=== PATIENT | male | born 1940 | race Caucasian/White ===

== ENCOUNTER 2017-02-03 16:52 | Observation (INO) | payer MEDICARE ==
[2017-02-03] MEDS ORDERED: ROCEPHIN 1 Gm-D5w 50 ml Bag** 50 ML IV ONE (17:59)
[2017-02-03] MEDS ORDERED: Zithromax 500 MG/ 250 ML NaCl Premix 250 ML IV ONE (17:59)
[2017-02-03] MEDS ORDERED: DUONEB 0.5-3 MG/3 ml Neb IH ONE (18:05)
[2017-02-03] MEDS: DUONEB 0.5-3 MG/3 ml Neb IH SCH (18:06)
[2017-02-03] MEDS ORDERED: BUMEX 1 MG ONE (18:11)
[2017-02-03] MEDS: ROCEPHIN 1 Gm-D5w 50 ml Bag** 50 ML IV SCH (18:13)
[2017-02-03] MEDS: BUMEX 1 MG PO SCH (18:14)
[2017-02-03] MEDS: Klor Con 10 MEQ PO SCH (18:21)
[2017-02-03] MEDS: MAG-OX 400 PO SCH (18:21)
[2017-02-03 18:24] LABS: BASOPHIL % 0.8 % (0.0-0.4); Eosinophil % 1.8 % (0.00-5.0); Granulocytes % 71.9 % (36.0-66.0); Lymphocytes % 13.9 % (24.0-44.0); Mean Cell Volume 88.3 fl (78-100); Mean Corpuscular Hemoglobin 28.5 pg (26-32); Mean Platelet Volume 8.9 fl (6-9.5); Monocytes % 11.6 % (0.0-12.0); Platelet Count 224 K/mm3 (150-450); Red Blood Count 4.45 M/mm3 (4.1-5.6); White Blood Count 10.3 K/mm3 (4.0-10.5)
[2017-02-03] MEDS: Zithromax 500 MG/ 250 ML NaCl Premix 250 ML IV SCH (18:24)
[2017-02-03 18:59] LABS: ALBUMIN 2.8 g/dL (3.4-5.0); ANION GAP 12.2 MEQ/L (5-15); BILIRUBIN,TOTAL 0.3 mg/dL (0.2-1.0); Carbon Dioxide 27.7 mEq/L (21-32); PHOSPHOROUS 2.6 mg/dL (2.6-4.7); Potassium 4.2 mEq/L (3.5-5.1); TROPONIN 0.023 ng/ml (0.000-0.056); Total Protein 7.1 gm/dL (6.4-8.2)
[2017-02-03] MEDS: Lopressor 25MG Tab PO SCH (21:22)
[2017-02-03] MEDS: Pepcid 20 MG PO SCH (21:22)
[2017-02-03] MEDS: Zocor 10MG PO SCH (21:26)
[2017-02-03] MEDS: Apresoline 25 MG TABLET PO SCH (21:26)
[2017-02-04] MEDS: DUONEB 0.5-3 MG/3 ml Neb IH SCH ×4 (00:48→19:06)
[2017-02-04] MEDS ORDERED: MEDICATION INTERVENTION MC SCH (07:15)
[2017-02-04] MEDS: BUMEX 1 MG PO SCH ×2 (09:19→17:00)
[2017-02-04] MEDS: THERAGRAN MULTIVITAMIN PO SCH (09:20)
[2017-02-04] MEDS: MAG-OX 400 PO SCH ×2 (09:20→17:05)
[2017-02-04] MEDS: ECOTRIN 81 MG PO SCH (09:20)
[2017-02-04] MEDS: Apresoline 25 MG TABLET PO SCH ×3 (09:20→21:15)
[2017-02-04] MEDS: Pepcid 20 MG PO SCH ×2 (09:20→21:15)
[2017-02-04] MEDS: FOLATE 1 MG PO SCH (09:21)
[2017-02-04] MEDS: Klor Con 10 MEQ PO SCH ×2 (09:21→17:05)
[2017-02-04] MEDS: Lopressor 25MG Tab PO SCH ×2 (09:21→21:15)
[2017-02-04] MEDS: Protonix 40MG Tablet PO SCH (09:21)
[2017-02-04] MEDS: ROCEPHIN 1 Gm-D5w 50 ml Bag** 50 ML IV SCH (09:22)
[2017-02-04] MEDS ORDERED: OLODATEROL HCL IH SCH (10:00)
[2017-02-04] MEDS: Zithromax 500 MG/ 250 ML NaCl Premix 250 ML IV SCH (10:00)
[2017-02-04] MEDS ORDERED: FE FUMARATE PO SCH (10:00)
[2017-02-04] MEDS ORDERED: NON-FORMULARY ITEM (Aspirin [Aspirin] 81 MG) PO SCH (10:00)
[2017-02-04] MEDS ORDERED: TIOTROPIUM BR IH SCH (10:00)
[2017-02-04] MEDS ORDERED: PRENATAL VIT PO SCH (10:00)
[2017-02-04] MEDS ORDERED: [UNRECOGNIZED DRUG - OTHER] PO SCH (10:00)
[2017-02-04] MEDS ORDERED: [UNRECOGNIZED DRUG - OTHER] IH SCH (10:00)
--- NOTE | 2017-02-04 11:39 | XRAY ---
Exam: Two-view chest from 02/03/2017. Comparison: Two-view chest from 10/29/2016. Indication: Pneumonia. Findings: Frontal and lateral chest films are submitted for evaluation. The lateral film is rotated. The transverse heart size appears within normal limits. Scattered bilateral perihilar and bibasilar calcified granulomas are seen. I also see extensive pleural calcification along the lateral aspect of the left lower lung field representing no change. These findings appear similar to 10/29/2016. The level of inspiration is not quite as deep as that seen on 2016, although there is a suggestion of mild hyperinflation on the lateral radiograph representing no change.. No definite new air space infiltrates, vascular congestion, pneumothorax, or pleural fluid is seen. Mild mid dorsal kyphosis and diffuse thoracic spondylosis are seen. There is minimal biapical pleural thickening representing no change. Impression: 1. Probable COPD with extensive calcified pleural plaque at the lateral aspect of the lower half of the left lung representing no significant change from 10/29/2016. 2. Scattered bilateral perihilar and lower lung field calcified granulomas are seen consistent with old healed granulomatous disease. This also is stable. 3. No definite new superimposed air space infiltrates/consolidations or other acute cardiopulmonary disease is seen.
--- NOTE | 2017-02-04 11:49 | PCM.NOTE ---
Date and Time: 02/04/17 1147 Subjective Assessment: doing better - Review of Systems Constitutional: No Fever, No Chills Eyes: No Symptoms Ears, Nose, & Throat: No Symptoms Respiratory: No Cough, No Short Of Breath Cardiac: No Chest Pain, No Edema, No Syncope Abdominal/Gastrointestinal: No Abdominal Pain, No Nausea, No Vomiting, No Diarrhea Genitourinary Symptoms: No Dysuria Musculoskeletal: No Back Pain, No Neck Pain Skin: No Rash Neurological: No Dizziness, No Focal Weakness, No Sensory Changes Psychological: No Symptoms Endocrine: No Symptoms Hematologic/Lymphatic: No Symptoms Immunological/Allergic: No Symptoms Objective Exam General Appearance: no apparent distress, alert Neurologic Exam: alert, oriented x 3, cooperative, normal mood/affect, nml cerebellar function, sensation nml, No motor deficits Skin Exam: normal color, warm, dry Eye Exam: PERRL, EOMI, eyes nml inspection Ears, Nose, Throat Exam: normal ENT inspection, pharynx normal, moist mucous membranes Neck Exam: normal inspection, non-tender, supple, full range of motion Respiratory Exam: normal breath sounds, lungs clear, No respiratory distress Cardiovascular Exam: regular rate/rhythm, normal heart sounds Gastrointestinal/Abdomen Exam: soft, No tenderness, No mass Extremity Exam: normal inspection, normal range of motion Back Exam: normal inspection, normal range of motion, No CVA tenderness, No vertebral tenderness Male Genitalia Exam: deferred Rectal Exam: deferred OBJECTIVE DATA Vital Signs: Vital Signs - 24 hr Temp Pulse Resp BP Pulse Ox 02/04/17 07:25 98.1 F 64 22 140/63 96 02/04/17 07:00 73 18 97 02/04/17 04:00 98.5 F 66 19 131/61 94 L 02/04/17 00:51 71 20 96 02/04/17 00:00 98.7 F 75 19 163/72 91 L 02/03/17 20:00 98.3 F 86 20 185/61 96 02/03/17 18:16 86 20 96 02/03/17 17:13 98.3 F 88 20 185/61 91 L 02/03/17 17:11 98.3 F 88 185/61 02/03/17 16:52 98.3 F 88 20 185/61 91 L Oxygen-Last 24 hours O2 Percentage 3 Liters = 32% O2 Percentage 3 Liters = 32% O2 Percentage 3 Liters = 32% Intake and Output: Intake & Output 02/01/17 02/02/17 02/03/17 02/04/17 11:59 11:59 11:59 11:59 Intake Total 1630 Balance 1630 Weight 87.997 kg Lab Results: Lab Results-Last 24 Hours 02/03/17 02/03/17 02/04/17 Range/Units 18:10 18:10 09:00 WBC 10.3 (4.0-10.5) K/mm3 RBC 4.45 (4.1-5.6) M/mm3 Hgb 12.7 (12.5-18.0) gm/dl Hct 39.3 L (42-50) % MCV 88.3 (78-100) fl MCH 28.5 (26-32) pg MCHC 32.3 (32-36) g/dl RDW 16.0 H (11.5-14.0) % Plt Count 224 (150-450) K/mm3 MPV 8.9 (6-9.5) fl Gran % 71.9 H (36.0-66.0) % Lymphocytes % 13.9 L (24.0-44.0) % Monocytes % 11.6 (0.0-12.0) % Eosinophils % 1.8 (0.00-5.0) % Basophils % 0.8 (0.0-0.4) % Basophils # 0.08 (0-0.4) Sodium 142 (136-145) mEq/L Potassium 4.2 (3.5-5.1) mEq/L Chloride 106 (98-107) mEq/L Carbon Dioxide 27.7 (21-32) mEq/L Anion Gap 12.2 (5-15) MEQ/L BUN 17 (9-20) mg/dL Creatinine 1.82 H (0.55-1.30) mg/dl Estimated GFR 39 ML/MIN Glucose 165 H (70-110) MG/DL Calcium 8.2 L (8.5-10.1) mg/dL Phosphorus 2.6 (2.6-4.7) mg/dL Total Bilirubin 0.3 (0.2-1.0) mg/dL AST 20 (15-37) U/L ALT 20 (12-78) U/L Alkaline Phosphatase 100 (46-116) U/L Troponin I 0.023 (0.000-0.056) ng/ml NT-Pro-B Natriuret Pep 355 (0-450) pg/ml Serum Total Protein 7.1 (6.4-8.2) gm/dL Albumin 2.8 L (3.4-5.0) g/dL Influenza Type A Ag (NEGATIVE) Influenza Type B Ag (NEGATIVE) RSV (PCR) (Negative) 02/04/17 Range/Units 09:00 WBC (4.0-10.5) K/mm3 RBC (4.1-5.6) M/mm3 Hgb (12.5-18.0) gm/dl Hct (42-50) % MCV (78-100) fl MCH (26-32) pg MCHC (32-36) g/dl RDW (11.5-14.0) % Plt Count (150-450) K/mm3 MPV (6-9.5) fl Gran % (36.0-66.0) % Lymphocytes % (24.0-44.0) % Monocytes % (0.0-12.0) % Eosinophils % (0.00-5.0) % Basophils % (0.0-0.4) % Basophils # (0-0.4) Sodium (136-145) mEq/L Potassium (3.5-5.1) mEq/L Chloride (98-107) mEq/L Carbon Dioxide (21-32) mEq/L Anion Gap (5-15) MEQ/L BUN (9-20) mg/dL Creatinine (0.55-1.30) mg/dl Estimated GFR ML/MIN Glucose (70-110) MG/DL Calcium (8.5-10.1) mg/dL Phosphorus (2.6-4.7) mg/dL Total Bilirubin (0.2-1.0) mg/dL AST (15-37) U/L ALT (12-78) U/L Alkaline Phosphatase (46-116) U/L Troponin I (0.000-0.056) ng/ml NT-Pro-B Natriuret Pep (0-450) pg/ml Serum Total Protein (6.4-8.2) gm/dL Albumin (3.4-5.0) g/dL Influenza Type A Ag NEGATIVE (NEGATIVE) Influenza Type B Ag NEGATIVE (NEGATIVE) RSV (PCR) NEGATIVE (Negative) Radiology Exams: Radiology Procedures Category Date Time Status CHEST 2 VIEWS (PA AND LAT) Stat Exams 02/03/17 17:40 Completed Assessment/Plan (1) Pneumonia Current Visit: Yes Status: Acute Qualifiers: Pneumonia type: due to unspecified organism Lung location: unspecified part of lung Code(s): J18.9 - PNEUMONIA, UNSPECIFIED ORGANISM (2) CAD (coronary artery disease) Current Visit: Yes Status: Chronic Qualifiers: Coronary Disease-Associated Artery/Lesion type: [place] artery Code(s): I25.10 - ATHSCL HEART DISEASE OF [place] CORONARY ARTERY W/O ANG PCTRS (3) COPD (chronic obstructive pulmonary disease) Current Visit: Yes Status: Chronic Qualifiers: COPD type: chronic bronchitis Chronic bronchitis type: simple Qualified Code(s): J41.0 - Simple chronic bronchitis (4) HTN (hypertension), benign Current Visit: Yes Status: Chronic Code(s): I10 - ESSENTIAL (PRIMARY) HYPERTENSION
[2017-02-04] MEDS: Zocor 10MG PO SCH (21:15)
[2017-02-05] MEDS: DUONEB 0.5-3 MG/3 ml Neb IH SCH ×2 (01:03→07:04)
[2017-02-05] MEDS: BUMEX 1 MG PO SCH ×2 (09:17→10:00)
[2017-02-05] MEDS: Pepcid 20 MG PO SCH (09:18)
[2017-02-05] MEDS: Apresoline 25 MG TABLET PO SCH (09:18)
[2017-02-05] MEDS: FOLATE 1 MG PO SCH (09:18)
[2017-02-05] MEDS: Klor Con 10 MEQ PO SCH (09:18)
[2017-02-05] MEDS: THERAGRAN MULTIVITAMIN PO SCH (09:18)
[2017-02-05] MEDS: ECOTRIN 81 MG PO SCH (09:18)
[2017-02-05] MEDS: Lopressor 25MG Tab PO SCH (09:18)
[2017-02-05] MEDS: Protonix 40MG Tablet PO SCH (09:18)
[2017-02-05] MEDS: ROCEPHIN 1 Gm-D5w 50 ml Bag** 50 ML IV SCH (09:19)
[2017-02-05] MEDS: MAG-OX 400 PO SCH (09:34)
[2017-02-05] MEDS: Zithromax 500 MG/ 250 ML NaCl Premix 250 ML IV SCH (10:04)
--- NOTE | 2017-02-05 10:37 | PCM.DS ---
Discharge Summary Date of Admission: 02/03/17 16:52 Admitting Physician: SADIA GROVER Primary Care Provider: SADIA GROVER Allergies Allergies No Known Drug Allergies Allergy (Verified 02/03/17 17:16) Hospital Summary - Hospital Course Hospital Course: Chief Complaint Diagnosis pnemonia Allergies Allergy/AdvReac Type Severity Reaction Status Date / Time No Known Drug Allergies Allergy Verified 02/03/17 17:16 Vital Signs (Last 24 hours) Temp Pulse Resp BP Pulse Ox 02/05/17 08:00 20 02/05/17 07:19 98.2 F 65 20 122/57 95 02/05/17 07:05 65 22 95 02/05/17 04:00 98.5 F 67 20 120/56 94 L 02/05/17 01:03 72 20 02/04/17 23:25 97.9 F 77 20 136/59 95 02/04/17 19:28 98.0 F 81 20 130/60 94 L 02/04/17 19:00 80 20 96 02/04/17 15:40 98.3 F 80 19 156/70 93 L 02/04/17 13:54 20 02/04/17 13:00 68 20 94 L 02/04/17 12:00 98.6 F 65 20 129/60 93 L Home Medications Medication Instructions Recorded Confirmed Last Taken Type Albuterol/Ipratropium 3ml Neb* 3 ml IH QID 02/03/17 02/03/17 02/03/17 09:00 History [DUONEB 0.5-3 MG/3 ml Neb] Famotidine 20 mg [Pepcid 20 20 mg PO BID 02/03/17 02/03/17 02/03/17 09:00 History MG] 20 MG Metoprolol Tartrate 25 mg 25 mg PO BID 02/03/17 02/03/17 02/03/17 09:00 History [Lopressor 25MG Tab] 25 MG Vit/Fe Fumarate/FA 1 each PO DAILY 02/03/17 02/03/17 02/03/17 09:00 History [ Plus Tablet] Tiotropium Br/Olodaterol HCl 2 puffs IH DAILY 02/03/17 02/03/17 02/03/17 09:00 History [Stiolto Respimat Inhal [place]] Current Medications Generic Name Dose Route Start Last Admin Trade Name J Carlosq PRN Reason Stop Dose Admin Albuterol/Ipratropium 3 ml 02/03/17 19:00 02/05/17 07:04 Duoneb 0.5-3 Mg/3 Ml Neb IH 03/05/17 18:59 3 ml Q6HRT SIMBA Administration Aspirin 81 mg 02/04/17 10:00 02/05/17 09:18 Ecotrin 81 Mg PO 03/06/17 09:59 81 mg DAILY SIMBA Administration Bumetanide 2 mg 02/04/17 10:00 02/05/17 09:17 Bumex 1 Mg PO 03/06/17 09:59 2 mg BID DIURETIC SIMBA Administration Famotidine 20 mg 02/03/17 22:00 02/05/17 09:18 Pepcid 20 Mg PO 03/05/17 21:59 20 mg BID SIMBA Administration Folic Acid 1 mg 02/04/17 10:00 02/05/17 09:18 Folate 1 Mg PO 03/06/17 09:59 1 mg DAILY SIMBA Administration Hydralazine HCl 25 mg 02/03/17 22:00 02/05/17 09:18 Apresoline 25 Mg Tablet PO 03/05/17 21:59 25 mg TID SIMBA Administration Ceftriaxone Sodium/Dextrose 50 mls @ 100 mls/hr 02/04/17 10:00 02/05/17 09:19 Rocephin 1 Gm-D5w 50 Ml Bag IV 03/06/17 09:59 100 mls/hr Q24H10 SIMBA Administration Azithromycin 250 mls @ 125 mls/hr 02/04/17 10:00 02/05/17 10:04 Zithromax 500 Mg/ 250 Ml Nacl Premix IV 03/06/17 09:59 125 mls/hr DAILY SIMBA Administration Magnesium Oxide 400 mg 02/03/17 22:00 02/05/17 09:34 Mag-Ox 400 PO 03/05/17 21:59 400 mg BID SIMBA Administration Metoprolol Tartrate 25 mg 02/03/17 22:00 02/05/17 09:18 Lopressor 25mg Tab PO 03/05/17 21:59 25 mg BID SIMBA Administration Multivitamins 1 tab 02/04/17 10:00 02/05/17 09:18 Theragran Multivitamin PO 03/06/17 09:59 1 tab DAILY SIMBA Administration Pantoprazole Sodium 40 mg 02/04/17 10:00 02/05/17 09:18 Protonix 40mg Tablet PO 03/06/17 09:59 40 mg DAILY SIMBA Administration Potassium Chloride 10 meq 02/03/17 22:00 02/05/17 09:18 Klor Con 10 Meq PO 03/05/17 21:59 10 meq BID SIMBA Administration Simvastatin 10 mg 02/03/17 22:00 02/04/17 21:15 Zocor 10mg PO 03/05/17 21:59 10 mg HS SIMBA Administration Discontinued Medications Generic Name Dose Route Start Last Admin Trade Name Freq PRN Reason Stop Dose Admin Albuterol/Ipratropium Confirm 02/03/17 18:05 Duoneb 0.5-3 Mg/3 Ml Neb Administered 02/03/17 18:06 Dose 3 ml IH .STK-MED ONE Bumetanide Confirm 02/03/17 18:11 Bumex 1 Mg Administered 02/03/17 18:12 Dose 2 mg .ROUTE .STK-MED ONE Azithromycin Confirm 02/03/17 17:59 Zithromax 500 Mg/ 250 Ml Nacl Premix Administered 02/03/17 18:00 Dose 250 mls @ ud IV .STK-MED ONE Ceftriaxone Sodium/Dextrose Confirm 02/03/17 17:59 Rocephin 1 Gm-D5w 50 Ml Bag Administered 02/03/17 18:00 Dose 50 mls @ ud IV .STK-MED ONE Intake & Output (Last 24 hours) 02/02/17 02/03/17 02/04/17 02/05/17 11:59 11:59 11:59 11:59 Intake Total 1630 1880 Balance 1630 1880 Weight 87.997 kg Laboratory Results (Last 24 hours) 02/04/17 02/04/17 09:00 09:00 NT-Pro-B Natriuret Pep 355 Influenza Type A Ag NEGATIVE Influenza Type B Ag NEGATIVE RSV (PCR) NEGATIVE Orders (Last 24 hours) Category Date Time Status Ambulate Patient TID Care 02/04/17 15:21 Active Aspirin EC 81 mg [Ecotrin 81 mg] Med 02/04/17 10:00 Active 81 mg PO DAILY Azithromycin 500 mg/250 ml [Zithromax 500 MG/ 250 ML Med 02/04/17 10:00 Active NaCl Premix] 250 ml IV DAILY Bumetanide 1 mg [Bumex 1 mg] Med 02/04/17 10:00 Active 2 mg PO BID DIURETIC Ceftriaxone 1 GM/50 ML PREMIX* [ROCEPHIN 1 Gm-D5w 50 ml Med 02/04/17 10:00 Active Bag] 50 ml IV Q24H10 Folic Acid 1 mg [Folate 1 mg] Med 02/04/17 10:00 Active 1 mg PO DAILY Multivitamins,Therapeutic Tab* [Theragran Multivitamin* Med 02/04/17 10:00 Active ] 1 tab PO DAILY PANTOPRAZOLE 40 mg Tablet [Protonix 40MG Tablet] Med 02/04/17 10:00 Active 40 mg PO DAILY Patient Care Notes (Last 24 hours) 02/05/17 09:49 HAND ENGRAVER Note by PedroJania walked in hallway with one stand-by assist,he walked with o2 on at 3 litters, then took it of just before he got to his room,sat is 94% with his o2 back on, his nurse jordan aware of his walk. Initialized on 02/05/17 09:49 - END OF NOTE 02/04/17 21:00 (created 02/05/17 01:35) Nursing Note by Tolu Mensah Pt ambulated in [place] 400 feet. pt tolerated well, returned to room. Call light in reach. Initialized on 02/05/17 01:35 - END OF NOTE 02/04/17 15:38 HAND ENGRAVER Note by Meeta Jarrett pt walked in hallway, pt did well. portable oxygen was used. Initialized on 02/04/17 15:38 - END OF NOTE Patient is doing much better, plan to discharge home today - Vitals & Intake/Output Vital Signs: Vital Signs Temperature 98.2 F 02/05/17 07:19 Pulse Rate 65 02/05/17 07:19 Respiratory Rate 20 02/05/17 08:00 Blood Pressure 122/57 02/05/17 07:19 O2 Sat by Pulse Oximetry 95 02/05/17 07:19 Oxygen-Last Documented O2 Percentage 3 Liters = 32% Intake & Output: Intake & Output 02/02/17 02/03/17 02/04/17 02/05/17 11:59 11:59 11:59 11:59 Intake Total 1630 1880 Balance 1630 1880 Weight 87.997 kg - Lab Result Diagrams: 02/03/17 18:10 02/03/17 18:10 Lab Results-Last 24 Hrs: Lab Results-Last 24 Hours 02/04/17 02/04/17 Range/Units 09:00 09:00 NT-Pro-B Natriuret Pep 355 (0-450) pg/ml Influenza Type A Ag NEGATIVE (NEGATIVE) Influenza Type B Ag NEGATIVE (NEGATIVE) RSV (PCR) NEGATIVE (Negative) - Radiology Exams Ordered Rad Exams-Entire Visit: Radiology Procedures Category Date Time Status CHEST 2 VIEWS (PA AND LAT) Stat Exams 02/03/17 17:40 Completed - Procedures and Test Procedures and Tests throughout Hospitalization: Therapy Orders & Screens 02/03/17 17:39 EKG ROUTINE Comment: Diagnosis: pnemonia 02/03/17 17:40 Respiratory Therapy Consult ROUTINE Comment: Reason For Exam: Diagnosis: pnemonia 02/03/17 17:59 Oxygen NASAL CANNULA 3 lpm Comment: Diagnosis: pnemonia 02/03/17 19:00 Respiratory Nebulizer Q6H Comment: DUO Q6 Diagnosis: pnemonia Discharge Exam General Appearance: no apparent distress, alert Neurologic Exam: alert, oriented x 3, cooperative, normal mood/affect, nml cerebellar function, sensation nml, No motor deficits Skin Exam: normal color, warm, dry Eye Exam: PERRL, EOMI, eyes nml inspection Ears, Nose, Throat Exam: normal ENT inspection, pharynx normal, moist mucous membranes Neck Exam: normal inspection, non-tender, supple, full range of motion Respiratory Exam: normal breath sounds, lungs clear, No respiratory distress Cardiovascular Exam: regular rate/rhythm, normal heart sounds Gastrointestinal/Abdomen Exam: soft, No tenderness, No mass Extremity Exam: normal inspection, normal range of motion Back Exam: normal inspection, normal range of motion, No CVA tenderness, No vertebral tenderness Male Genitalia Exam: deferred Rectal Exam: deferred Final Diagnosis/Problem List - Final Discharge Diagnosis/Problem (1) Pneumonia Current Visit: Yes Status: Resolved (2) CAD (coronary artery disease) Current Visit: Yes Status: Chronic Priority: High (3) COPD (chronic obstructive pulmonary disease) Current Visit: Yes Status: Chronic Priority: Medium (4) HTN (hypertension), benign Current Visit: Yes Status: Chronic Priority: Medium - Discharge Discharge Date: 02/05/17 Disposition: Home, Self-Care Condition: Stable Prescriptions: New Levofloxacin [Levaquin] 500 mg PO DAILY #5 tablet Continue Folic Acid 1 mg PO DAILY Simvastatin [Zocor] 10 mg PO HS Magnesium Oxide 400 mg [Mag-Ox 400] 400 mg PO BID Potassium Chloride 10 Meq Tab* [Klor Con 10 MEQ] 10 meq PO BID PANTOPRAZOLE 40 mg Tablet [Protonix 40MG Tablet] 40 mg PO DAILY Hydralazine HCl 25 mg PO TID Aspirin 81 mg PO DAILY Bumetanide [Bumex] 2 mg PO BID Metoprolol Tartrate 25 mg [Lopressor 25MG Tab] 25 mg PO BID Tiotropium Br/Olodaterol HCl [Stiolto Respimat Inhal [place]] 2 puffs IH DAILY Vit/Fe Fumarate/FA [ Plus Tablet] 1 each PO DAILY Famotidine 20 mg [Pepcid 20 MG] 20 mg PO BID Albuterol/Ipratropium 3ml Neb* [DUONEB 0.5-3 MG/3 ml Neb] 3 ml IH QID Follow up with: SADIA GROVER MD [Primary Care Provider] - 1 Week
[2017-02-05 11:00] VITALS: BP 124/70; PULSE 78; O2SAT 94
== END 2017-02-05 12:55 | disposition home or self-care (01) ==
LOC: MED SURG 16:52
PROVIDERS: ADMIT General Practice; ATTEND General Practice
DX: J18.9 Pneumonia, unspecified organism (principal); I25.10 Atherosclerotic heart disease of native coronary artery without angina pectoris; J44.9 Chronic obstructive pulmonary disease, unspecified; G93.2 Benign intracranial hypertension; I12.9 Hypertensive chronic kidney disease with stage 1 through stage 4 chronic kidney disease, or unspecified chronic kidney disease; N18.1 Chronic kidney disease, stage 1; I50.30 Unspecified diastolic (congestive) heart failure; Z79.899 Other long term (current) drug therapy
CPT/HCPCS: 36415; 71020; 80053; 83880; 84100; 84484; 85025; 87040; 87631; 93005; 94640; 94760; G0378; J0456; J0696; A9270-GY

== ENCOUNTER 2017-11-25 23:06 | Emergency (ER) | payer MEDICARE ==
[2017-11-25] MEDS ORDERED: BABY ASPIRIN 81 MG CHEW PO ONE (23:23)
[2017-11-25] MEDS ORDERED: ROCEPHIN 1 Gm-D5w 50 ml Bag** 1 G/50 ML IVPB IV STA (23:26)
[2017-11-25] MEDS ORDERED: Zithromax 500 MG/ 250 ML NaCl Premix 500 MG/250 ML IVPB IV STA (23:26)
[2017-11-25] MEDS ORDERED: MOTRIN 400 MG PO ONE (23:26)
[2017-11-25] MEDS ORDERED: MOTRIN 400 MG ONE (23:29)
[2017-11-25] MEDS ORDERED: BABY ASPIRIN 81 MG CHEW ONE (23:29)
[2017-11-25] MEDS ORDERED: Zithromax 500 MG/ 250 ML NaCl Premix 500 MG/250 ML IVPB IV ONE (23:30)
[2017-11-25] MEDS ORDERED: Sodium Chloride 0.9% 1000 ML 1,000 ML IV SCH (23:30)
[2017-11-25] MEDS ORDERED: ROCEPHIN 1 Gm-D5w 50 ml Bag** 1 G/50 ML IVPB IV ONE (23:30)
[2017-11-25] MEDS ORDERED: Sodium Chloride 0.9% 1000 ML 1,000 ML ONE (23:30)
--- NOTE | 2017-11-25 23:30 | ERPHSYRPT ---
- History of Present Illness Time Seen by Provider: 11/25/17 23:16 Source: patient Exam Limitations: no limitations Patient Subjective Stated Complaint: c/o fever, cough increase SOA Triage Nursing Assessment: skin warm to touch, patient tachypneic, lungs clear bilat, cough states having productive sputum Physician History: FOR THE PAST 5 DAYS PT HAS HAD INCREASED SHORTNESS OF AIR, FEVER UP TO 101.2 DEGREES, CHILLS, SORE THROAT AND COUGH PRODUCTIVE OF YELLOW PHLEGM. PT ALSO C/O CHRONIC SHORTNESS OF AIR AND ANKLE EDEMA FOR YEARS. Allergies/Adverse Reactions: No Known Drug Allergies Allergy (Verified 02/03/17 17:16) Home Medications: Folic Acid 1 mg PO DAILY 01/28/15 [History] Simvastatin [Zocor] 10 mg PO HS 01/28/15 [History] Magnesium Oxide 400 mg [Mag-Ox 400] 400 mg PO BID 04/03/15 [History] Potassium Chloride 10 Meq Tab* [Klor Con 10 MEQ] 20 meq PO BID 05/08/15 [ History] Hydralazine HCl 25 mg PO TID 02/26/16 [History] PANTOPRAZOLE 40 mg Tablet [Protonix 40MG Tablet] 40 mg PO DAILY 02/26/16 [ History] Aspirin 81 mg PO DAILY 09/10/16 [History] Bumetanide [Bumex] 1 mg PO BID 10/29/16 [History] Famotidine 20 mg [Pepcid 20 MG] 20 mg PO BID 02/03/17 [History] Metoprolol Tartrate 25 mg [Lopressor 25MG Tab] 25 mg PO BID 02/03/17 [ History] Vit/Fe Fumarate/FA [ Plus Tablet] 1 each PO DAILY 02/03/17 [ History] Albuterol 2.5 mg/3 ml Neb [Proventil 2.5 mg/3 ml Neb] 2.5 mg NEB Q6H 11/26 [History] Allopurinol 300 mg [Zyloprim 300 mg] 150 mg PO DAILY 11/26/17 [History] Hydroxychloroquine Sulfate [Plaquenil] 200 mg PO BID 11/26/17 [History] Methylprednisolone 4 mg [Medrol 4 mg] 1 tab PO DAILY 11/26/17 [History] Hx Tetanus, Diphtheria Vaccination/Date Given: Yes Hx Influenza Vaccination/Date Given: Yes Hx Pneumococcal Vaccination/Date Given: Yes Immunizations Up to Date: Yes - Review of Systems Constitutional: Fever, Chills Ears, Nose, & Throat: Throat Pain Respiratory: Cough, Dyspnea Musculoskeletal: Other (CHRONIC ANKLE EDEMA) All Other Systems: Reviewed and Negative - Past Medical History Pertinent Past Medical History: Yes Neurological History: TIA ENT History: No Pertinent History Cardiac History: Coronary Artery Disease, High Cholesterol, Hypertension, Myocardial Infarction (NH) Respiratory History: COPD, Pneumonia Endocrine Medical History: No Pertinent History Musculoskeletal History: No Pertinent History GI Medical History: GI Bleed, Other History: Other Psycho-Social History: No Pertinent History Male Reproductive Disorders: No Pertinent History Other Medical History: some kidney failure, anemia with blood transfusion - Past Surgical History Past Surgical History: Yes Neuro Surgical History: No Pertinent History Cardiac: Cardiac Catheterization, Cardiac Stent Respiratory: No Pertinent History Gastrointestinal: Appendectomy, Hernia Repair Genitourinary: No Pertinent History Musculoskeletal: No Pertinent History Male Surgical History: No Pertinent History Other Surgical History: EGD AND COLONOSCOPY LAST DONE APRIL 2016 - Social History Smoking Status: Former smoker How long have you smoked: 50yrs Exposure to second hand smoke: Yes Drug Use: none Patient Lives Alone: Yes - Nursing Vital Signs Nursing Vital Signs: Initial Vital Signs Temperature 100.7 F 11/25/17 23:24 Pulse Rate 94 H 11/25/17 23:24 Respiratory Rate 24 11/25/17 23:24 Blood Pressure 208/87 11/25/17 23:24 O2 Sat by Pulse Oximetry 88 L 11/25/17 23:24 Pain Scale Pain Intensity 0 - Physical Exam General Appearance: alert Eye Exam: PERRL/EOMI Ears, Nose, Throat Exam: TMs normal, moist mucous membranes, pharyngeal erythema Neck Exam: normal inspection Respiratory Exam: lungs clear, airway intact Cardiovascular Exam: normal heart sounds Gastrointestinal/Abdomen Exam: soft, normal bowel sounds Back Exam: normal range of motion Extremity Exam: pedal edema (+1 BILATERALLY) Neurologic Exam: alert, cooperative Skin Exam: warm, dry SpO2 Interpretation: hypoxic SpO2: 88 Oxygen Delivery: Room Air - Course Nursing assessment & vital signs reviewed: Yes EKG Interpreted by Me: RATE (80), Sinus Rhythm, NORMAL AXIS, NORMAL INTERVALS - Radiology Exams Chest X-ray Interpretation: Interpreted by me (CHRONIC CHANGES LLL; COPD.) Ordered Tests: Active Orders 24 hr Category Date Time Status Lathe Tender STAT Care 11/25/17 23:24 Active EKG-ER Only STAT Care 11/25/17 23:23 Active IV Insertion STAT Care 11/25/17 23:23 Active Oxygen-ED Only NASAL CANNULA 3 lpm Care 11/25/17 23:23 Active Pulse Oximetry (ED) STAT Care 11/25/17 23:23 Active CHEST 2 VIEWS (PA AND LAT) Routine Exams 11/26/17 12:25 Taken BLOOD CULTURE Stat Lab 11/25/17 23:50 Received CBC W DIFF Stat Lab 11/25/17 23:50 Completed CMP Stat Lab 11/25/17 23:50 Completed CULTURE, THROAT Stat Lab 11/25/17 23:50 Received CULTURE,SPUTUM Stat Lab 11/25/17 23:26 Uncollected MAGNESIUM Stat Lab 11/25/17 23:50 Completed Manual Differential NC Stat Lab 11/25/17 23:50 Completed NT PRO BNP Stat Lab 11/25/17 23:50 Completed STREP SCREEN-BETA A Stat Lab 11/25/17 23:50 Completed TROPONIN Q3H Lab 11/25/17 23:50 Completed TROPONIN Q3H Lab 11/26/17 02:30 Ordered TROPONIN Q3H Lab 11/26/17 05:30 Ordered TROPONIN Q3H Lab 11/26/17 08:30 Ordered TROPONIN Q3H Lab 11/26/17 11:30 Ordered UA W/RFX UR CULTURE Stat Lab 11/25/17 23:50 Received Medication Summary Generic Name Dose Route Start Last Admin Trade Name Freq PRN Reason Stop Dose Admin Sodium Chloride 1,000 mls @ 100 mls/hr 11/25/17 23:30 11/25/17 23:35 Sodium Chloride 0.9% 1000 Ml IV 12/25/17 23:29 100 mls/hr .Q10H SIMBA Administration Magnesium Oxide 400 mg 11/26/17 10:00 Mag-Ox 400 PO 12/26/17 09:59 BID SIMBA Discontinued Medications Generic Name Dose Route Start Last Admin Trade Name Freq PRN Reason Stop Dose Admin Aspirin 324 mg 11/25/17 23:23 11/25/17 23:35 Baby Aspirin 81 Mg Chew PO 11/25/17 23:24 324 mg STAT ONE Administration Aspirin Confirm 11/25/17 23:29 Baby Aspirin 81 Mg Chew Administered 11/25/17 23:30 Dose 324 mg .ROUTE .STK-MED ONE Ceftriaxone Sodium/Dextrose 1 g in 50 mls @ 100 mls/hr 11/25/17 23:26 23:35 Rocephin 1 Gm-D5w 50 Ml Bag IV 11/25/17 23:55 100 mls/hr STAT STA Administration Azithromycin 500 mg in 250 mls @ 250 mls/hr 11/25/17 23:26 11/26/17 00:03 Zithromax 500 Mg/ 250 Ml Nacl Premix IV 11/26/17 00:25 250 mls/hr STAT STA Administration Azithromycin Confirm 11/25/17 23:30 Zithromax 500 Mg/ 250 Ml Nacl Premix Administered 11/25/17 23:31 Dose 500 mg in 250 mls @ ud IV .STK-MED ONE Ceftriaxone Sodium/Dextrose Confirm 11/25/17 23:30 Rocephin 1 Gm-D5w 50 Ml Bag Administered 11/25/17 23:31 Dose 1 g in 50 mls @ ud IV .STK-MED ONE Ibuprofen 400 mg 11/25/17 23:26 11/25/17 23:35 Motrin 400 Mg PO 11/25/17 23:27 400 mg STAT ONE Administration Ibuprofen Confirm 11/25/17 23:29 Motrin 400 Mg Administered 11/25/17 23:30 Dose 400 mg .ROUTE .STK-MED ONE Lab/Rad Data: Laboratory Result Diagrams 11/25/17 23:50 11/25/17 23:50 Laboratory Results 11/25/17 11/25/17 11/25/17 Range/Units 23:50 23:50 23:50 WBC (4.0-10.5) K/mm3 RBC (4.1-5.6) M/mm3 Hgb (12.5-18.0) gm/dl Hct (42-50) % MCV (78-100) fl MCH (26-32) pg MCHC (32-36) g/dl RDW (11.5-14.0) % Plt Count (150-450) K/mm3 MPV (6-9.5) fl Sodium (136-145) mEq/L Potassium (3.5-5.1) mEq/L Chloride (98-107) mEq/L Carbon Dioxide (21-32) mEq/L Anion Gap (5-15) MEQ/L BUN (9-20) mg/dL Creatinine (0.55-1.30) mg/dl Estimated GFR ML/MIN Glucose (70-110) MG/DL Calcium (8.5-10.1) mg/dL Magnesium (1.8-2.4) mg/dL Total Bilirubin (0.2-1.0) mg/dL AST (15-37) U/L ALT (12-78) U/L Alkaline Phosphatase (46-116) U/L Troponin I < 0.017 (0.000-0.056) ng/ml NT-Pro-B Natriuret Pep (0-450) pg/ml Serum Total Protein (6.4-8.2) gm/dL Albumin (3.4-5.0) g/dL Influenza Type A Ag POSITIVE (NEGATIVE) Influenza Type B Ag NEGATIVE (NEGATIVE) RSV (PCR) NEGATIVE (Negative) Streptococcus Screen NEGATIVE (Negative) 11/25/17 11/25/17 Range/Units 23:50 23:50 WBC 9.4 (4.0-10.5) K/mm3 RBC 4.49 (4.1-5.6) M/mm3 Hgb 13.2 (12.5-18.0) gm/dl Hct 41.2 L (42-50) % MCV 91.8 (78-100) fl MCH 29.4 (26-32) pg MCHC 32.0 (32-36) g/dl RDW 15.2 H (11.5-14.0) % Plt Count 166 (150-450) K/mm3 MPV 9.3 (6-9.5) fl Sodium 140 (136-145) mEq/L Potassium 4.6 (3.5-5.1) mEq/L Chloride 106 (98-107) mEq/L Carbon Dioxide 27.2 (21-32) mEq/L Anion Gap 10.9 (5-15) MEQ/L BUN 14 (9-20) mg/dL Creatinine 1.92 H (0.55-1.30) mg/dl Estimated GFR 36 ML/MIN Glucose 127 H (70-110) MG/DL Calcium 8.2 L (8.5-10.1) mg/dL Magnesium 1.7 L (1.8-2.4) mg/dL Total Bilirubin 0.20 (0.2-1.0) mg/dL AST 21 (15-37) U/L ALT 27 (12-78) U/L Alkaline Phosphatase 76 (46-116) U/L Troponin I (0.000-0.056) ng/ml NT-Pro-B Natriuret Pep 315 (0-450) pg/ml Serum Total Protein 7.2 (6.4-8.2) gm/dL Albumin 2.9 L (3.4-5.0) g/dL Influenza Type A Ag (NEGATIVE) Influenza Type B Ag (NEGATIVE) RSV (PCR) (Negative) Streptococcus Screen (Negative) - Departure Time of Disposition: 01:47 Departure Disposition: Home Clinical Impression: INFLUENZA "A", CAD, HTN, COPD Condition: Stable Critical Care Time: No Referrals: SADIA GROVER MD [Primary Care Provider] - Instructions: Flu, Adult (DC) Additional Instructions: FOLLOW UP WITH PRIVATE DOCTOR TOMORROW. Prescriptions: Naproxen [Naprosyn] 500 mg PO Q12H PRN PRN #20 tablet PRN Reason: Pain
[2017-11-26 00:13] LABS: Granulocyte Absolute (ANC) 8.35 (1.4-6.9); Hematocrit 41.2 % (42-50); Hemoglobin 13.2 gm/dl (12.5-18.0); Mean Cell Volume 91.8 fl (78-100); Mean Corpuscular Hemoglobin 29.4 pg (26-32); Mean Platelet Volume 9.3 fl (6-9.5); Platelet Count 166 K/mm3 (150-450); Red Blood Count 4.49 M/mm3 (4.1-5.6); Red Cell Distribution Width 15.2 % (11.5-14.0); White Blood Count 9.4 K/mm3 (4.0-10.5)
[2017-11-26 00:35] LABS: ALBUMIN 2.9 g/dL (3.4-5.0); ANION GAP 10.9 MEQ/L (5-15); BILIRUBIN,TOTAL 0.2 mg/dL (0.2-1.0); Calcium 8.2 mg/dL (8.5-10.1); Carbon Dioxide 27.2 mEq/L (21-32); Creatinine 1 1.92 mg/dl (0.55-1.30); MAGNESIUM 1.7 mg/dL (1.8-2.4); Potassium 4.6 mEq/L (3.5-5.1); Total Protein 7.2 gm/dL (6.4-8.2)
[2017-11-26 01:30] LABS: INFLUENZA B NEGATIVE (NEGATIVE); RESPIRATORY SYNCTIAL VIRUS NEGATIVE (Negative)
[2017-11-26 01:31] LABS: INFLUENZA A POSITIVE (NEGATIVE)
[2017-11-26] MEDS ORDERED: NORCO 5/325 MG PO ONE (01:48)
[2017-11-26] MEDS ORDERED: MAG-OX 400 ONE (01:49)
[2017-11-26] MEDS ORDERED: NORCO 5/325 MG ONE (01:49)
[2017-11-26 01:51] LABS: Appearance CLEAR (CLEAR); Bilirubin NEGATIVE (NEGATIVE); Blood NEGATIVE Ery/ul (0-5); Glucose NEGATIVE (NEGATIVE); Ketones NEGATIVE (NEGATIVE); Leukocyte Esterase NEGATIVE (NEGATIVE); Nitrite NEGATIVE (NEGATIVE); Ph 7.5 (5-6); Protein,Urine Dip NEGATIVE (Negative); Urobilinogen NORMAL mg/dL (0-1)
[2017-11-26 02:14] VITALS: BP 151/79; PULSE 73; O2SAT 97
[2017-11-26 02:40] LABS: Basophil 1 % (0.0-1.0); Lymphocytes 8 % (24-44); Monocyte 8 % (0.0-12.0); Neutrophils 83 % (36.-66.); Platelet Estimate NORMAL (NORMAL); Total Cells Counted 100
--- NOTE | 2017-11-26 09:07 | XRAY ---
Indication: Fever and cough. Comparison: February 03, 2017. PA/lateral chest unchanged again demonstrating chronic lung markings, calcified granulomas, and left lung calcified pleural plaquing. No focal infiltrate, consolidation, or large effusion. Heart is not enlarged. Bony thorax intact again with mild osteopenia and degenerative changes. Impression: Stable nonacute chest with chronic features.
[2017-11-26] MEDS ORDERED: MAG-OX 400 PO SCH (10:00)
== END 2017-11-26 02:14 | disposition home or self-care (01) ==
LOC: ED 23:06
DX: J10.1 Influenza due to other identified influenza virus with other respiratory manifestations (principal); Z79.899 Other long term (current) drug therapy; I25.10 Atherosclerotic heart disease of native coronary artery without angina pectoris; I10 Essential (primary) hypertension; J44.9 Chronic obstructive pulmonary disease, unspecified
CPT/HCPCS: 36000; 36415; 71046; 80053; 81002; 83735; 83880; 84484; 85025; 87040; 87070; 87430; 87631; 93005; 93041; 96360; 96361; 96365; 96367; 99284; J0456; J0696; A9270-GY

== ENCOUNTER 2018-03-27 15:05 | Observation (INO) | payer MEDICARE ==
--- NOTE | 2018-03-27 15:54 | PCM.HP.ADD ---
Addendum to History & Physical - History & Physical Addendum Addendum to History & Physical: This certifies that the History & Physical in the electronic chart reflects the current health status of the patient. If there are changes in the H&P these changes/exceptions are listed as follows.
[2018-03-27] MEDS ORDERED: Sodium Chloride 0.9% 1000 ML 1,000 ML IV SCH (16:00)
[2018-03-27] MEDS ORDERED: DUONEB 0.5-3 MG/3 ml Neb IH ONE (16:09)
[2018-03-27] MEDS: DUONEB 0.5-3 MG/3 ml Neb IH SCH ×3 (16:20→23:04)
[2018-03-27] MEDS: ROCEPHIN 1 Gm-D5w 50 ml Bag** 1 G/50 ML IVPB IV SCH (16:24)
[2018-03-27] MEDS: Zithromax 500 MG/ 250 ML NaCl Premix 500 MG/250 ML IVPB IV SCH (16:24)
[2018-03-27 16:29] LABS: BASOPHIL % 0.3 % (0.0-0.4); Basophil (Absolute #) 0.04 (0-0.4); Eosinophil % 0.1 % (0.00-5.0); Eosinophil (Absolute #) 0.01 (0-0.5); Granulocyte Absolute (ANC) 10.63 (1.4-6.9); Granulocytes % 89.9 % (36.0-66.0); Hematocrit 42.2 % (42-50); Hemoglobin 13.9 gm/dl (12.5-18.0); Lymphocyte (Absolute #) 0.67 (1.0-4.6); Lymphocytes % 5.7 % (24.0-44.0); Mean Cell Volume 91.7 fl (78-100); Mean Corpuscular Hemoglobin 30.2 pg (26-32); Mean Corpuscular Hgb Concent. 32.9 g/dl (32-36); Mean Platelet Volume 9.3 fl (6-9.5); Monocyte (Absolute #) 0.47 (0.0-1.3); Platelet Count 173 K/mm3 (150-450); Red Cell Distribution Width 15.5 % (11.5-14.0); White Blood Count 11.8 K/mm3 (4.0-10.5)
[2018-03-27 16:34] LABS: A-aADO2 35; ABG HEMOGLOBIN 17.3; ABG POTASSIUM 4.2 (3.5-5.1); ARTERIAL BLD GAS O2 SATURATION 96.4 % (95-100); ARTERIAL BLOOD GAS BASE EXCESS -0.3 (-2.0-2.0); ARTERIAL BLOOD GAS FIO2 21 %; ARTERIAL BLOOD GAS PCO2 38 mmHg (35-45); ARTERIAL BLOOD GAS PO2 67 mmHg (75-100); ARTERIAL BLOOD GAS pH 7.41 (7.35-7.45); CARBOXYHEMOGLOBIN 2.1 % THgb (0.0-6.9); HCO3- 24.1 (22-28); Methhemoglobin 1.4 % (1.4-1.5); paO2 pAO1 0.66
[2018-03-27 16:35] LABS: ABG SITE LEFT BRACHIAL
[2018-03-27 16:46] LABS: ALBUMIN 3.7 g/dL (3.5-5.0); ANION GAP 11.9 MEQ/L (5-15); BILIRUBIN,TOTAL 0.4 mg/dL (0.2-1.3); Calcium 8.8 mg/dL (8.4-10.2); Creatinine 1 1.56 mg/dL (0.66-1.25); Potassium 4.8 mmol/L (3.5-5.1); Total Protein 7.1 g/dL (6.3-8.2)
[2018-03-27] MEDS ORDERED: PROVENTIL 2.5 MG/3 ML NEB IH PRN (16:57)
[2018-03-27] MEDS ORDERED: Naprosyn 500 MG PO PRN (16:57)
[2018-03-27] MEDS ORDERED: MEDICATION INTERVENTION MC SCH (17:15)
[2018-03-27] MEDS: BUMEX 1 MG PO SCH ×2 (17:58→21:42)
[2018-03-27] MEDS: Tobrex EYE DROPS 5 ML OP SCH ×2 (17:58→21:46)
[2018-03-27] MEDS: Acular OPTH SOL OP SCH ×2 (17:59→21:45)
[2018-03-27] MEDS: PRED-FORTE 1% OPHTHALMIC OP SCH ×2 (17:59→21:45)
[2018-03-27] MEDS: Lopressor 25MG Tab PO SCH (21:43)
[2018-03-27] MEDS: Klor Con 10 MEQ PO SCH (21:43)
[2018-03-27] MEDS: Apresoline 25 MG TABLET PO SCH (21:43)
[2018-03-27] MEDS: Pepcid 20 MG PO SCH (21:43)
[2018-03-27] MEDS: MAG-OX 400 PO SCH (21:43)
[2018-03-27] MEDS: Zocor 10MG PO SCH (21:44)
[2018-03-27] MEDS ORDERED: NON-FORMULARY ITEM (Hydralazine Hcl [Hydralazine Hcl] 50 MG) PO SCH (22:00)
[2018-03-27] MEDS ORDERED: BUMETANIDE 1 MG PO SCH (22:00)
[2018-03-27] MEDS ORDERED: Sodium Chloride 0.9% 10 ML FLUSH Syringe IV SCH (22:00)
--- NOTE | 2018-03-27 22:38 | XRAY ---
Indication: Fever, cough, and short of breath. Comparison: November 26, 2017. PA/lateral chest unchanged again demonstrating COPD, CIPD, left lung calcified pleural plaquing, and a few scattered calcified granulomas. No new focal infiltrate, consolidation, or large effusion. Heart and mediastinal structures within normal limits. Bony thorax intact again with mild osteopenia and degenerative changes. Impression: Stable nonacute chest with chronic features.
[2018-03-28 02:50] LABS: Appearance CLEAR (CLEAR); Bilirubin NEGATIVE (NEGATIVE); Blood NEGATIVE Ery/ul (0-5); Glucose NEGATIVE (NEGATIVE); Ketones NEGATIVE (NEGATIVE); Leukocyte Esterase NEGATIVE (NEGATIVE); Nitrite NEGATIVE (NEGATIVE); Protein,Urine Dip NEGATIVE (Negative); Urobilinogen NORMAL mg/dL (0-1)
[2018-03-28] MEDS: DUONEB 0.5-3 MG/3 ml Neb IH SCH ×5 (05:58→19:08)
[2018-03-28] MEDS: ROCEPHIN 1 Gm-D5w 50 ml Bag** 1 G/50 ML IVPB IV SCH (09:49)
[2018-03-28] MEDS: Protonix 40MG Tablet PO SCH (09:50)
[2018-03-28] MEDS: BUMEX 1 MG PO SCH ×2 (09:50→16:25)
[2018-03-28] MEDS: Klor Con 10 MEQ PO SCH ×2 (09:51→21:41)
[2018-03-28] MEDS: FOLATE 1 MG PO SCH (09:51)
[2018-03-28] MEDS: Apresoline 25 MG TABLET PO SCH ×3 (09:51→21:41)
[2018-03-28] MEDS: MAG-OX 400 PO SCH ×2 (09:52→21:41)
[2018-03-28] MEDS: ZYLOPRIM 300 MG PO SCH (09:52)
[2018-03-28] MEDS: Pepcid 20 MG PO SCH ×2 (09:53→21:41)
[2018-03-28] MEDS: Lopressor 25MG Tab PO SCH ×2 (09:53→21:41)
[2018-03-28] MEDS: Tobrex EYE DROPS 5 ML OP SCH ×4 (09:56→21:43)
[2018-03-28] MEDS: PRED-FORTE 1% OPHTHALMIC OP SCH ×4 (09:56→21:44)
[2018-03-28] MEDS: Acular OPTH SOL OP SCH ×4 (09:57→21:44)
[2018-03-28] MEDS ORDERED: MEDROL 4 MG PO SCH (10:00)
[2018-03-28] MEDS: Zithromax 500 MG/ 250 ML NaCl Premix 500 MG/250 ML IVPB IV SCH (10:33)
[2018-03-28] MEDS ORDERED: Sodium Chloride 0.9% 10 ML FLUSH Syringe IV PRN (11:31)
[2018-03-28] MEDS ORDERED: PULMICORT 0.5 MG/2 ML RESPULES IH SCH (11:45)
[2018-03-28] MEDS: ENOXAPARIN SODIUM SQ SCH (11:51)
[2018-03-28] MEDS: solu-MEDROL 40 MG IV SCH ×3 (11:51→22:26)
[2018-03-28] MEDS: Sodium Chloride 0.9% 10 ML FLUSH Syringe IV SCH ×2 (14:00→22:26)
[2018-03-28] MEDS: NovoLOG Insulin SQ PRN (16:27)
[2018-03-28] MEDS: PULMICORT 0.5 MG/2 ML RESPULES IH SCH (19:09)
[2018-03-28] MEDS: Zocor 10MG PO SCH (21:41)
[2018-03-29] MEDS: DUONEB 0.5-3 MG/3 ml Neb IH SCH ×3 (00:06→13:13)
[2018-03-29 05:45] LABS: Hemoglobin 13.5 gm/dl (12.5-18.0); Mean Cell Volume 90.5 fl (78-100); Mean Corpuscular Hemoglobin 30.5 pg (26-32); Mean Corpuscular Hgb Concent. 33.8 g/dl (32-36); Mean Platelet Volume 9.6 fl (6-9.5); Platelet Count 202 K/mm3 (150-450); Red Blood Count 4.42 M/mm3 (4.1-5.6); White Blood Count 11.6 K/mm3 (4.0-10.5)
[2018-03-29 05:57] LABS: ANION GAP 13.6 MEQ/L (5-15); Calcium 8.6 mg/dL (8.4-10.2); Creatinine 1 1.59 mg/dL (0.66-1.25); Potassium 4.5 mmol/L (3.5-5.1)
[2018-03-29] MEDS: Sodium Chloride 0.9% 10 ML FLUSH Syringe IV SCH (06:11)
[2018-03-29] MEDS: solu-MEDROL 40 MG IV SCH (06:11)
[2018-03-29] MEDS: PULMICORT 0.5 MG/2 ML RESPULES IH SCH (07:28)
--- NOTE | 2018-03-29 08:08 | PCM.NOTE ---
Date and Time: 03/29/18807 Subjective Assessment: doing better - Review of Systems Constitutional: No Fever, No Chills Eyes: No Symptoms Ears, Nose, & Throat: No Symptoms Respiratory: No Cough, No Short Of Breath Cardiac: No Chest Pain, No Edema, No Syncope Abdominal/Gastrointestinal: No Abdominal Pain, No Nausea, No Vomiting, No Diarrhea Genitourinary Symptoms: No Dysuria Musculoskeletal: No Back Pain, No Neck Pain Skin: No Rash Neurological: No Dizziness, No Focal Weakness, No Sensory Changes Psychological: No Symptoms Endocrine: No Symptoms Hematologic/Lymphatic: No Symptoms Immunological/Allergic: No Symptoms Objective Exam General Appearance: no apparent distress, alert Neurologic Exam: alert, oriented x 3, cooperative, normal mood/affect, nml cerebellar function, sensation nml, No motor deficits Skin Exam: normal color, warm, dry Eye Exam: PERRL, EOMI, eyes nml inspection Ears, Nose, Throat Exam: normal ENT inspection, pharynx normal, moist mucous membranes Neck Exam: normal inspection, non-tender, supple, full range of motion Respiratory Exam: normal breath sounds, lungs clear, No respiratory distress Cardiovascular Exam: regular rate/rhythm, normal heart sounds Gastrointestinal/Abdomen Exam: soft, No tenderness, No mass Extremity Exam: normal inspection, normal range of motion Back Exam: normal inspection, normal range of motion, No CVA tenderness, No vertebral tenderness Male Genitalia Exam: deferred Rectal Exam: deferred OBJECTIVE DATA Vital Signs: Vital Signs - 24 hr Temp Pulse Resp BP Pulse Ox 03/29/18 07:19 97.7 F 68 20 166/78 92 L 03/29/18 04:00 97.8 F 76 20 175/76 92 L 03/29/18 00:12 69 20 93 L 03/29/18 00:00 98.4 F 69 20 180/77 93 L 03/28/18 22:00 75 20 93 L 03/28/18 20:00 98.6 F 77 22 173/76 93 L 03/28/18 16:16 98 F 70 20 155/66 93 L 03/28/18 16:00 20 03/28/18 13:25 63 20 95 03/28/18 12:00 20 03/28/18 11:17 97.6 F 62 20 147/67 97 Pain Assessment - Last Documented Pain Intensity 0 Pain Scale Used 0-10 Pain Scale Intake and Output: Intake & Output 03/26/18 03/27/18 03/28/18 03/29/18 11:59 11:59 11:59 11:59 Intake Total 1879 2667 Output Total 1450 Balance 1879 1217 Weight 86.5 kg Lab Results: Accuchecks Date 03/28/18 Date 03/28/18 Date 03/28/18 Time 21:30 Time 16:30 Time 11:30 Accucheck Value: 165 Accucheck Value: 238 Accucheck Value: 119 Lab Results-Last 24 Hours 03/28/18 03/29/18 03/29/18 Range/Units 11:29 04:55 04:55 WBC 11.6 H (4.0-10.5) K/mm3 RBC 4.42 (4.1-5.6) M/mm3 Hgb 13.5 (12.5-18.0) gm/dl Hct 40.0 L (42-50) % MCV 90.5 (78-100) fl MCH 30.5 (26-32) pg MCHC 33.8 (32-36) g/dl RDW 15.0 H (11.5-14.0) % Plt Count 202 (150-450) K/mm3 MPV 9.6 H (6-9.5) fl Sodium 140 (137-145) mmol/L Potassium 4.5 (3.5-5.1) mmol/L Chloride 105 (98-107) mmol/L Carbon Dioxide 26 (22-30) mmol/L Anion Gap 13.6 (5-15) MEQ/L BUN 27 H (9-20) mg/dL Creatinine 1.59 H (0.66-1.25) mg/dL Estimated GFR 45.2 ML/MIN Glucose 217 H (74-106) mg/dL Calcium 8.6 (8.4-10.2) mg/dL NT-Pro-B Natriuret Pep 838 (0-1800) pg/mL Radiology Exams: Radiology Procedures Category Date Time Status CHEST 2 VIEWS (PA AND LAT) Stat Exams 03/27/18 16:06 Completed Multi-Disciplinary Progress Notes: Multi-Disciplinary Progress Notes 03/28/18 12:52 Case Management Note by Larisa Smith DISCHARGE PLAN REVIEWED WITH PATIENT. PATIENT LIVES ALONE, DOES HAVE HOME OXYGEN THAT HE WEARS AT [facility] FROM [facility]. PLAN TO RETURN HOME TO PRE EPISODIC LEVEL OF FUNCTION. WILL CONTINUE TO MONITOR FOR ALL D/C NEEDS. Initialized on 03/28/18 12:52 - END OF NOTE Assessment/Plan (1) COPD exacerbation Current Visit: Yes Status: Acute Code(s): J44.1 - CHRONIC OBSTRUCTIVE PULMONARY DISEASE W (ACUTE) EXACERBATION (2) CAD (coronary artery disease) Current Visit: No Status: Chronic Code(s): I25.10 - ATHSCL HEART DISEASE OF [place] CORONARY ARTERY W/O ANG PCTRS (3) HTN (hypertension), benign Current Visit: No Status: Chronic Code(s): I10 - ESSENTIAL (PRIMARY) HYPERTENSION
[2018-03-29] MEDS: ROCEPHIN 1 Gm-D5w 50 ml Bag** 1 G/50 ML IVPB IV SCH (09:12)
[2018-03-29] MEDS: Acular OPTH SOL OP SCH ×2 (09:13→12:32)
[2018-03-29] MEDS: PRED-FORTE 1% OPHTHALMIC OP SCH ×2 (09:16→12:31)
[2018-03-29] MEDS: Tobrex EYE DROPS 5 ML OP SCH ×2 (09:17→12:31)
[2018-03-29] MEDS: Apresoline 25 MG TABLET PO SCH (09:19)
[2018-03-29] MEDS: FOLATE 1 MG PO SCH (09:20)
[2018-03-29] MEDS: BUMEX 1 MG PO SCH (09:20)
[2018-03-29] MEDS: Klor Con 10 MEQ PO SCH (09:21)
[2018-03-29] MEDS: Pepcid 20 MG PO SCH (09:22)
[2018-03-29] MEDS: Lopressor 25MG Tab PO SCH (09:22)
[2018-03-29] MEDS: MAG-OX 400 PO SCH (09:22)
[2018-03-29] MEDS: ZYLOPRIM 300 MG PO SCH (09:22)
[2018-03-29] MEDS: Protonix 40MG Tablet PO SCH (09:22)
[2018-03-29] MEDS: Zithromax 500 MG/ 250 ML NaCl Premix 500 MG/250 ML IVPB IV SCH (10:25)
[2018-03-29 11:19] VITALS: BP 160/78
[2018-03-29] MEDS: NovoLOG Insulin SQ PRN (11:32)
[2018-03-29] MEDS: ENOXAPARIN SODIUM SQ SCH (11:32)
--- NOTE | 2018-03-29 12:33 | PCM.SSS ---
History of Present Illness - Chief Complaint Chief Complaint: exacerbation COPD History of Present Illness: is a 77 year old male.admitted with worsening shortness of breath for 1 week - Review of Systems Constitutional: No Fever, No Chills Eyes: No Symptoms Ears, Nose, & Throat: No Symptoms Respiratory: Orthopnea, Short Of Breath, No Cough Cardiac: No Chest Pain, No Edema, No Syncope Abdominal/Gastrointestinal: No Abdominal Pain, No Nausea, No Vomiting, No Diarrhea Genitourinary Symptoms: No Dysuria Musculoskeletal: No Back Pain, No Neck Pain Skin: No Rash Neurological: No Dizziness, No Focal Weakness, No Sensory Changes Psychological: No Symptoms Endocrine: No Symptoms Hematologic/Lymphatic: No Symptoms Immunological/Allergic: No Symptoms Medications & Allergies Home Medications: Home Medication List Folic Acid 1 mg PO DAILY 01/28/15 [History Confirmed 03/27/18] Simvastatin [Zocor] 10 mg PO HS 01/28/15 [History Confirmed 03/27/18] Magnesium Oxide 400 mg [Mag-Ox 400] 400 mg PO BID 04/03/15 [History Confirmed 03/27/18] Potassium Chloride 10 Meq Tab* [Klor Con 10 MEQ] 20 meq PO BID 05/08/15 [ History Confirmed 03/27/18] Hydralazine HCl 50 mg PO TID 02/26/16 [History Confirmed 03/27/18] PANTOPRAZOLE 40 mg Tablet [Protonix 40MG Tablet] 40 mg PO DAILY 02/26/16 [ History Confirmed 03/27/18] Bumetanide [Bumex] 1 mg PO BID 10/29/16 [History Confirmed 03/27/18] Famotidine 20 mg [Pepcid 20 MG] 20 mg PO BID 02/03/17 [History Confirmed 03/27/18] Metoprolol Tartrate 25 mg [Lopressor 25MG Tab] 25 mg PO BID 02/03/17 [ History Confirmed 03/27/18] Albuterol 2.5 mg/3 ml Neb [Proventil 2.5 mg/3 ml Neb] 2.5 mg NEB Q6HPRN PRN 11/26/17 [History Confirmed 03/27/18] Allopurinol 300 mg [Zyloprim 300 mg] 150 mg PO DAILY 11/26/17 [History Confirmed 03/27/18] Hydroxychloroquine Sulfate [Plaquenil] 200 mg PO BID 11/26/17 [History Confirmed 03/27/18] Methylprednisolone 4 mg [Medrol 4 mg] 1 tab PO DAILY 11/26/17 [History Confirmed 03/27/18] Naproxen [Naprosyn] 500 mg PO Q12H PRN PRN #20 tablet 11/26/17 [Rx Confirmed 06/06] Colchicine [Colcrys] 0.6 mg PO DAILY 03/27/18 [History Confirmed 03/27/18] Ketorolac Tromethamine 0.5% [Acular OPTH DAWNA] 1 drops OP QID 03/27/18 [ History Confirmed 03/27/18] Prednisolone Acetate OPHTH [Pred-Forte 1% Ophthalmic] 1 drops OP QID 03/27 [History Confirmed 03/27/18] Tobramycin 1 ml OP QID 03/27/18 [History Confirmed 03/27/18] Cephalexin Mh 500 mg [Keflex 500 mg] 500 mg PO QID #30 capsule 03/29/18 [Rx] Methylprednisolone Packet [Medrol Dosepack] 4 mg PO UD #30 packet [Rx] Allergies/Adverse Reactions: Allergies Allergy/AdvReac Type Severity Reaction Status Date / Time No Known Drug Allergies Allergy Verified 02/03/17 17:16 - Past Medical History Past Medical History: Yes Neurological History: TIA ENT History: No Pertinent History Cardiac History: Coronary Artery Disease, High Cholesterol, Hypertension, Myocardial Infarction (DE) Respiratory History: COPD, Pneumonia Endocrine Medical History: No Pertinent History Musculoskelatal History: No Pertinent History GI Medical History: GI Bleed, Other History: Other Pyscho-Social History: No Pertinent History Male Reproductive Disorders: No Pertinent History Comment: some kidney failure, anemia with blood transfusion - Past Surgical History Past Surgical History: Yes Neuro Surgical History: No Pertinent History Cardiac History: Cardiac Catheterization, Cardiac Stent Respiratory Surgery: No Pertinent History GI Surgical History: Appendectomy, Hernia Repair Genitourinary Surgical Hx: No Pertinent History Musculskeletal Surgical Hx: No Pertinent History Male Surgical History: No Pertinent History Other Surgical History: EGD AND COLONOSCOPY LAST DONE APRIL 2016 - Social History Smoking Status: Former smoker How long have you smoked: 50yrs Exposure to second hand smoke: Yes Alcohol: None Drug Use: none - Physical Exam Vital Signs: Vital Signs - 24 hr Temp Pulse Resp BP Pulse Ox 03/29/18 12:00 20 03/29/18 11:18 97.8 F 80 20 160/78 92 L 03/29/18 08:00 20 03/29/18 07:28 67 20 91 L 03/29/18 07:19 97.7 F 68 20 166/78 92 L 03/29/18 04:00 97.8 F 76 20 175/76 92 L 03/29/18 00:12 69 20 93 L 03/29/18 00:00 98.4 F 69 20 180/77 93 L 03/28/18 22:00 75 20 93 L 03/28/18 20:00 98.6 F 77 22 173/76 93 L 03/28/18 16:16 98 F 70 20 155/66 93 L 03/28/18 16:00 20 03/28/18 13:25 63 20 95 General Appearance: moderate distress, alert Neurologic Exam: alert, oriented x 3, cooperative, normal mood/affect, nml cerebellar function, nml station & gait, sensation nml, No motor deficits Eye Exam: PERRL/EOMI, eyes nml inspection Ears, Nose, Throat Exam: normal ENT inspection, TMs normal, pharynx normal, moist mucous membranes Neck Exam: normal inspection, non-tender, supple, full range of motion Respiratory Exam: normal breath sounds, crackles/rales, rhonchi, No respiratory distress Cardiovascular Exam: regular rate/rhythm, normal heart sounds, normal peripheral pulses Gastrointestinal/Abdomen Exam: soft, normal bowel sounds, No tenderness, No mass Back Exam: normal inspection, normal range of motion, No CVA tenderness, No vertebral tenderness Extremity Exam: normal inspection, normal range of motion, pelvis stable Skin Exam: normal color, warm, dry, No rash Lymphatic Exam: No adenopathy Results - Labs Lab/Micro Results: Accuchecks Date 03/29/18 Date 03/29/18 Date 03/28/18 Date 03/28/18 Time 11:30 Time 07:30 Time 21:30 Time 16:30 Accucheck Value: 215 Accucheck Value: 141 Accucheck Value: 165 Accucheck Value: 238 Lab Results-Last 24 Hours 03/29/18 03/29/18 Range/Units 04:55 04:55 WBC 11.6 H (4.0-10.5) K/mm3 RBC 4.42 (4.1-5.6) M/mm3 Hgb 13.5 (12.5-18.0) gm/dl Hct 40.0 L (42-50) % MCV 90.5 (78-100) fl MCH 30.5 (26-32) pg MCHC 33.8 (32-36) g/dl RDW 15.0 H (11.5-14.0) % Plt Count 202 (150-450) K/mm3 MPV 9.6 H (6-9.5) fl Sodium 140 (137-145) mmol/L Potassium 4.5 (3.5-5.1) mmol/L Chloride 105 (98-107) mmol/L Carbon Dioxide 26 (22-30) mmol/L Anion Gap 13.6 (5-15) MEQ/L BUN 27 H (9-20) mg/dL Creatinine 1.59 H (0.66-1.25) mg/dL Estimated GFR 45.2 ML/MIN Glucose 217 H (74-106) mg/dL Calcium 8.6 (8.4-10.2) mg/dL Accuchecks Date 03/29/18 Date 03/29/18 Date 03/28/18 Date 03/28/18 Time 11:30 Time 07:30 Time 21:30 Time 16:30 Accucheck Value: 215 Accucheck Value: 141 Accucheck Value: 165 Accucheck Value: 238 - Radiology Impressions Radiology Exams & Impressions: Radiology Procedures Category Date Time Status CHEST 2 VIEWS (PA AND LAT) Stat Exams 03/27/18 16:06 Completed - Other Procedures and Tests Respiratory Therapy 03/28/18 13:00 Respiratory Nebulizer Q6H 03/28/18 19:00 Respiratory Nebulizer UD Assessment/Plan (1) COPD exacerbation Current Visit: Yes Status: Acute Code(s): J44.1 - CHRONIC OBSTRUCTIVE PULMONARY DISEASE W (ACUTE) EXACERBATION (2) CAD (coronary artery disease) Current Visit: No Status: Chronic Code(s): I25.10 - ATHSCL HEART DISEASE OF [place] CORONARY ARTERY W/O ANG PCTRS (3) HTN (hypertension), benign Current Visit: No Status: Chronic Code(s): I10 - ESSENTIAL (PRIMARY) HYPERTENSION Hospital Summary - Hospital Course Hospital Course: Chief Complaint Diagnosis exacerbation COPD Allergies Allergy/AdvReac Type Severity Reaction Status Date / Time No Known Drug Allergies Allergy Verified 02/03/17 17:16 Vital Signs (Last 24 hours) Temp Pulse Resp BP Pulse Ox 03/29/18 12:00 20 03/29/18 11:18 97.8 F 80 20 160/78 92 L 03/29/18 08:00 20 03/29/18 07:28 67 20 91 L 03/29/18 07:19 97.7 F 68 20 166/78 92 L 03/29/18 04:00 97.8 F 76 20 175/76 92 L 03/29/18 00:12 69 20 93 L 03/29/18 00:00 98.4 F 69 20 180/77 93 L 03/28/18 22:00 75 20 93 L 03/28/18 20:00 98.6 F 77 22 173/76 93 L 03/28/18 16:16 98 F 70 20 155/66 93 L 03/28/18 16:00 20 03/28/18 13:25 63 20 95 Home Medications Medication Instructions Recorded Confirmed Last Taken Type Colchicine [Colcrys] 0.6 mg PO DAILY 03/27/18 03/27/18 03/27/18 09:00 History Ketorolac Tromethamine 0.5% 1 drops OP QID 03/27/18 03/27/18 03/27/18 History [Acular OPTH DAWNA] Prednisolone Acetate OPHTH 1 drops OP QID 03/27/18 03/27/18 03/27/18 History [Pred-Forte 1% Ophthalmic] Tobramycin [Aktob] 1 ml OP QID 03/27/18 03/27/18 03/27/18 History Current Medications Generic Name Dose Route Start Last Admin Trade Name Freq PRN Reason Stop Dose Admin Albuterol Sulfate 2.5 mg 03/27/18 16:57 Proventil 2.5 Mg/3 Ml Neb IH 04/26/18 16:56 Q6HPRN PRN SHORTNESS OF BREATH Albuterol/Ipratropium 3 ml 03/28/18 13:00 03/29/18 07:28 Duoneb 0.5-3 Mg/3 Ml Neb IH 04/26/18 18:59 3 ml Q6HRT SIMBA Administration Allopurinol 150 mg 03/28/18 10:00 03/29/18 09:22 Zyloprim 300 Mg PO 04/27/18 09:59 150 mg DAILY SIMBA Administration Budesonide 0.5 mg 03/28/18 19:00 03/29/18 07:28 Pulmicort 0.5 Mg/2 Ml Respules IH 04/27/18 18:59 0.5 mg Q12HRT SIMBA Administration Bumetanide 1 mg 03/27/18 17:15 03/29/18 09:20 Bumex 1 Mg PO 04/26/18 17:14 1 mg BID DIURETIC SIMBA Administration Enoxaparin Sodium 40 mg 03/28/18 12:00 03/29/18 11:32 Enoxaparin Sodium SQ 04/27/18 11:59 40 mg NOON SIMBA Administration Famotidine 20 mg 03/27/18 22:00 03/29/18 09:22 Pepcid 20 Mg PO 04/26/18 21:59 20 mg BID SIMBA Administration Folic Acid 1 mg 03/28/18 10:00 03/29/18 09:20 Folate 1 Mg PO 04/27/18 09:59 1 mg DAILY SIMBA Administration Hydralazine HCl 50 mg 03/27/18 22:00 03/29/18 09:19 Apresoline 25 Mg Tablet PO 04/26/18 21:59 50 mg TID SIMBA Administration Azithromycin 500 mg in 250 mls @ 250 mls/hr 03/27/18 17:00 03/29/18 10:25 Zithromax 500 Mg/ 250 Ml Nacl Premix IV 04/26/18 16:59 250 mls/hr Q24H10 SIMBA Administration Ceftriaxone Sodium/Dextrose 1 g in 50 mls @ 100 mls/hr 03/27/18 16:15 09:12 Rocephin 1 Gm-D5w 50 Ml Bag IV 07/08/18 16:14 100 mls/hr Q24H10 SIMBA Administration Insulin Aspart 0 unit 03/28/18 11:44 03/29/18 11:32 Novolog Insulin SQ 04/27/18 11:43 2 unit UD PRN Administration Ketorolac Tromethamine 0 ml 03/27/18 17:00 03/29/18 09:13 Acular Opth Dawna OP 04/26/18 16:59 1 ml QID SIMBA Administration Magnesium Oxide 400 mg 03/27/18 22:00 03/29/18 09:22 Mag-Ox 400 PO 04/26/18 21:59 400 mg BID SIMBA Administration Methylprednisolone Sodium Succinate 40 mg 03/28/18 11:45 03/29/18 06:11 Solu-Medrol 40 Mg IV 04/27/18 11:44 40 mg Q8HT SIMBA Administration Metoprolol Tartrate 25 mg 03/27/18 22:00 03/29/18 09:22 Lopressor 25mg Tab PO 04/26/18 21:59 25 mg BID SIMBA Administration Miscellaneous Information 0 each 03/27/18 17:15 Medication Intervention 04/26/18 17:14 .RN TO CHECK WITH [facility] Non-Formulary Medication 0 mg 03/27/18 22:00 03/29/18 09:20 Hydroxychloroquine Sulfate [Plaquenil] PO 04/26/18 21:59 200 mg BID SIMBA Administration Pantoprazole Sodium 40 mg 03/28/18 10:00 03/29/18 09:22 Protonix 40mg Tablet PO 04/27/18 09:59 40 mg DAILY SIMBA Administration Potassium Chloride 20 meq 03/27/18 22:00 03/29/18 09:21 Klor Con 10 Meq PO 04/26/18 21:59 20 meq BID SIMBA Administration Prednisolone Acetate 0 ml 03/27/18 17:00 03/29/18 09:16 Pred-Forte 1% Ophthalmic OP 04/26/18 16:59 1 ml QID SIMBA Administration Simvastatin 10 mg 03/27/18 22:00 03/28/18 21:41 Zocor 10mg PO 04/26/18 21:59 10 mg HS SIMBA Administration Sodium Chloride 10 ml 03/28/18 14:00 03/29/18 06:11 Sodium Chloride 0.9% 10 Ml Flush Syringe IV 04/27/18 13:59 10 ml Q8HT SIMBA Administration Sodium Chloride 10 ml 03/28/18 11:31 Sodium Chloride 0.9% 10 Ml Flush Syringe IV 04/27/18 11:30 PRN PRN Tobramycin Sulfate 0 ml 03/27/18 17:00 03/29/18 09:17 Tobrex Eye Drops 5 Ml OP 04/26/18 16:59 1 ml QID SIMBA Administration Discontinued Medications Generic Name Dose Route Start Last Admin Trade Name Freq PRN Reason Stop Dose Admin Albuterol/Ipratropium 3 ml 03/27/18 19:00 03/28/18 12:25 Duoneb 0.5-3 Mg/3 Ml Neb IH 04/26/18 18:59 Not Given Q4HRT SIMBA Albuterol/Ipratropium Confirm 03/27/18 16:09 Duoneb 0.5-3 Mg/3 Ml Neb Administered 03/27/18 16:10 Dose 3 ml IH .STK-MED ONE Budesonide 0.5 mg 03/28/18 11:45 03/28/18 12:26 Pulmicort 0.5 Mg/2 Ml Respules IH 04/27/18 11:44 Not Given Q12HRT SIMBA Sodium Chloride 1,000 mls @ 50 mls/hr 03/27/18 16:00 03/27/18 16:24 Sodium Chloride 0.9% 1000 Ml IV 04/26/18 15:59 50 mls/hr .Q20H SIMBA Administration Methylprednisolone 4 mg 03/28/18 10:00 03/28/18 09:53 Medrol 4 Mg PO 04/27/18 09:59 4 mg DAILY SIMBA Administration Naproxen 500 mg 03/27/18 16:57 Naprosyn 500 Mg PO 04/26/18 16:56 Q12H PRN PRN PAIN Sodium Chloride 10 ml 03/27/18 22:00 03/27/18 21:44 Sodium Chloride 0.9% 10 Ml Flush Syringe IV 04/26/18 21:59 10 ml Q8HT SIMBA Administration Intake & Output (Last 24 hours) 03/27/18 03/28/18 03/29/18 03/30/18 11:59 11:59 11:59 11:59 Intake Total 2911 5922 Output Total 1450 Balance 1879 1217 Weight 86.5 kg Laboratory Results (Last 24 hours) 03/29/18 03/29/18 04:55 04:55 WBC 11.6 H RBC 4.42 Hgb 13.5 Hct 40.0 L MCV 90.5 MCH 30.5 MCHC 33.8 RDW 15.0 H Plt Count 202 MPV 9.6 H Sodium 140 Potassium 4.5 Chloride 105 Carbon Dioxide 26 Anion Gap 13.6 BUN 27 H Creatinine 1.59 H Estimated GFR 45.2 Glucose 217 H Calcium 8.6 Orders (Last 24 hours) Category Date Time Status BMP AM.LAB Lab 03/29/18 04:55 Completed CBC AM.LAB Lab 03/29/18 04:55 Completed Albuterol/Ipratropium 3ml Neb* [DUONEB 0.5-3 MG/3 ml Med 03/28/18 13:00 Active Neb] 3 ml IH Q6HRT Budesonide 0.5 mg/2 ml [Pulmicort 0.5 mg/2 ml Med 03/28/18 11:45 Discontinued Respules] 0.5 mg IH Q12HRT Budesonide 0.5 mg/2 ml [Pulmicort 0.5 mg/2 ml Med 03/28/18 19:00 Active Respules] 0.5 mg IH Q12HRT Enoxaparin Sodium [Enoxaparin Sodium] Med 03/28/18 12:00 Active 40 mg SQ NOON Insulin Aspart [NovoLOG Insulin] Med 03/28/18 11:44 Active 0 unit SQ UD PRN Methylprednisolone Sod Suc 40M [solu-MEDROL 40 MG] Med 03/28/18 11:45 Active 40 mg IV Q8HT NaCl 0.9% 10 ML FLUSH [Sodium Chloride 0.9% 10 ML FLUSH Med 03/28/18 11:31 Active Syringe] 10 ml IV PRN PRN NaCl 0.9% 10 ML FLUSH [Sodium Chloride 0.9% 10 ML FLUSH Med 03/28/18 14:00 Active Syringe] 10 ml IV Q8HT Respiratory Nebulizer Q6H RT 03/28/18 13:00 Active Respiratory Nebulizer UD RT 03/28/18 19:00 Active Patient Care Notes (Last 24 hours) 03/28/18 12:52 Case Management Note by Larisa Smith DISCHARGE PLAN REVIEWED WITH PATIENT. PATIENT LIVES ALONE, DOES HAVE HOME OXYGEN THAT HE WEARS AT [facility], [facility] FROM [facility]. PLAN TO RETURN HOME TO PRE EPISODIC LEVEL OF FUNCTION. WILL CONTINUE TO MONITOR FOR ALL D/C NEEDS. Initialized on 03/28/18 12:52 - END OF NOTE - Vitals & Intake/Output Vital Signs: Vital Signs Temperature 97.8 F 03/29/18 11:18 Pulse Rate 80 03/29/18 11:18 Respiratory Rate 20 03/29/18 12:00 Blood Pressure 160/78 03/29/18 11:18 O2 Sat by Pulse Oximetry 92 L 03/29/18 11:18 Oxygen-Last Documented O2 Percentage 5 Liters = 40% Intake & Output: Intake & Output 03/27/18 03/28/18 03/29/18 03/30/18 11:59 11:59 11:59 11:59 Intake Total 1879 2667 Output Total 1450 Balance 1879 1217 Weight 86.5 kg - Lab Result Diagrams: 03/29/18 04:55 03/29/18 04:55 Lab Results-Last 24 Hrs: Accuchecks Date 03/29/18 Date 03/29/18 Date 03/28/18 Date 03/28/18 Time 11:30 Time 07:30 Time 21:30 Time 16:30 Accucheck Value: 215 Accucheck Value: 141 Accucheck Value: 165 Accucheck Value: 238 Lab Results-Last 24 Hours 03/29/18 03/29/18 Range/Units 04:55 04:55 WBC 11.6 H (4.0-10.5) K/mm3 RBC 4.42 (4.1-5.6) M/mm3 Hgb 13.5 (12.5-18.0) gm/dl Hct 40.0 L (42-50) % MCV 90.5 (78-100) fl MCH 30.5 (26-32) pg MCHC 33.8 (32-36) g/dl RDW 15.0 H (11.5-14.0) % Plt Count 202 (150-450) K/mm3 MPV 9.6 H (6-9.5) fl Sodium 140 (137-145) mmol/L Potassium 4.5 (3.5-5.1) mmol/L Chloride 105 (98-107) mmol/L Carbon Dioxide 26 (22-30) mmol/L Anion Gap 13.6 (5-15) MEQ/L BUN 27 H (9-20) mg/dL Creatinine 1.59 H (0.66-1.25) mg/dL Estimated GFR 45.2 ML/MIN Glucose 217 H (74-106) mg/dL Calcium 8.6 (8.4-10.2) mg/dL Micro Results-Entire Visit: Accuchecks Date 03/29/18 Date 03/29/18 Date 03/28/18 Date 03/28/18 Time 11:30 Time 07:30 Time 21:30 Time 16:30 Accucheck Value: 215 Accucheck Value: 141 Accucheck Value: 165 Accucheck Value: 238 - Radiology Exams Ordered Rad Exams-Entire Visit: Radiology Procedures Category Date Time Status CHEST 2 VIEWS (PA AND LAT) Stat Exams 03/27/18 16:06 Completed - Procedures and Test Procedures and Tests throughout Hospitalization: Therapy Orders & Screens 03/27/18 15:51 Respiratory Therapy Consult ROUTINE Comment: Reason For Exam: Diagnosis: exacerbation COPD 03/27/18 16:02 Oxygen NASAL CANNULA 3 lpm Comment: Diagnosis: exacerbation COPD 03/27/18 19:00 Respiratory Nebulizer Q4H Comment: DUONEB Q4 Diagnosis: exacerbation COPD 03/28/18 13:00 Respiratory Nebulizer Q6H Comment: Diagnosis: exacerbation COPD, duoneb q 6 hr 03/28/18 19:00 Respiratory Nebulizer UD Comment: Pulmicort 0.5 mg q 12 hr Diagnosis: exacerbation COPD - Discharge Discharge Date: 03/29/18 Disposition: Home, Self-Care Condition: Stable Prescriptions: New Cephalexin Mh 500 mg [Keflex 500 mg] 500 mg PO QID #30 capsule Methylprednisolone Packet [Medrol Dosepack] 4 mg PO UD #30 packet Continue Folic Acid 1 mg PO DAILY Simvastatin [Zocor] 10 mg PO HS Magnesium Oxide 400 mg [Mag-Ox 400] 400 mg PO BID Potassium Chloride 10 Meq Tab* [Klor Con 10 MEQ] 20 meq PO BID PANTOPRAZOLE 40 mg Tablet [Protonix 40MG Tablet] 40 mg PO DAILY Hydralazine HCl 50 mg PO TID Bumetanide [Bumex] 1 mg PO BID Metoprolol Tartrate 25 mg [Lopressor 25MG Tab] 25 mg PO BID Famotidine 20 mg [Pepcid 20 MG] 20 mg PO BID Hydroxychloroquine Sulfate [Plaquenil] 200 mg PO BID Methylprednisolone 4 mg [Medrol 4 mg] 1 tab PO DAILY Allopurinol 300 mg [Zyloprim 300 mg] 150 mg PO DAILY Albuterol 2.5 mg/3 ml Neb [Proventil 2.5 mg/3 ml Neb] 2.5 mg NEB Q6HPRN PRN PRN Reason: Shortness Of Breath Naproxen [Naprosyn] 500 mg PO Q12H PRN PRN #20 tablet PRN Reason: Pain Ketorolac Tromethamine 0.5% [Acular OPTH DAWNA] 1 drops OP QID Prednisolone Acetate OPHTH [Pred-Forte 1% Ophthalmic] 1 drops OP QID Colchicine [Colcrys] 0.6 mg PO DAILY Tobramycin 1 ml OP QID Instructions: Pneumonia in Adults Follow up with: SADIA GROVER MD [Primary Care Provider] - 1 Week Forms: Discharge Instructions
[2018-03-29 13:21] VITALS: PULSE 67; O2SAT 90
== END 2018-03-29 14:15 | disposition home or self-care (01) ==
LOC: MED SURG 15:05
PROVIDERS: ADMIT General Practice; ATTEND General Practice
DX: J44.1 Chronic obstructive pulmonary disease with (acute) exacerbation (principal); I25.10 Atherosclerotic heart disease of native coronary artery without angina pectoris; I12.9 Hypertensive chronic kidney disease with stage 1 through stage 4 chronic kidney disease, or unspecified chronic kidney disease; N18.9 Chronic kidney disease, unspecified; I51.9 Heart disease, unspecified; Z79.899 Other long term (current) drug therapy
CPT/HCPCS: 36415; 36600; 71046; 80048; 80053; 81002; 82375; 82803; 83036; 83880; 85025; 85027; 94150; 94640; 94760; G0378; J0456; J0696; J1650; J2920; A9270-GY

== ENCOUNTER 2018-07-28 11:39 | Observation (INO) | payer MEDICARE ==
[2018-07-28] MEDS ORDERED: TYLENOL 325 MG PO PRN (11:57)
--- NOTE | 2018-07-28 13:18 | XRAY ---
Indication: Cough, congestion, and short of breath. History COPD and CHF. Comparison: March 27, 2018. PA/lateral chest unchanged again demonstrating COPD, CIPD, and left lung calcified pleural plaquing. Heart is not enlarged. Bony thorax intact again with mild osteopenia and degenerative changes. No new/acute findings. Impression: Stable nonacute chest with chronic features.
[2018-07-28 14:15] LABS: Hematocrit 47.1 % (42-50); Hemoglobin 15.6 gm/dl (12.5-18.0); Mean Cell Volume 92.4 fl (78-100); Mean Corpuscular Hemoglobin 30.6 pg (26-32); Mean Corpuscular Hgb Concent. 33.1 g/dl (32-36); Mean Platelet Volume 10.4 fl (6-9.5); Platelet Count 110 K/mm3 (150-450); Red Cell Distribution Width 15.7 % (11.5-14.0); White Blood Count 10.4 K/mm3 (4.0-10.5)
[2018-07-28] MEDS: Sodium Chloride 0.9% 1000 ML 1,000 ML IV SCH (14:17)
[2018-07-28] MEDS: ROCEPHIN 1 Gm-D5w 50 ml Bag** 1 G/50 ML IVPB IV SCH (14:17)
[2018-07-28] MEDS: PROVENTIL 2.5 MG/3 ML NEB IH SCH ×2 (14:41→19:36)
[2018-07-28 14:52] LABS: ALBUMIN 3.6 g/dL (3.5-5.0); ANION GAP 11.4 MEQ/L (5-15); BILIRUBIN,TOTAL 0.5 mg/dL (0.2-1.3); Calcium 8.8 mg/dL (8.4-10.2); Creatinine 1 1.47 mg/dL (0.66-1.25); Potassium 3.8 mmol/L (3.5-5.1); TROPONIN 0.016 ng/mL (0.000-0.034); Total Protein 6.6 g/dL (6.3-8.2)
[2018-07-28] MEDS ORDERED: NON-FORMULARY ITEM (Hydralazine Hcl [Hydralazine Hcl] 50 MG) PO SCH (15:00)
[2018-07-28] MEDS: Apresoline 25 MG TABLET PO SCH ×2 (15:03→21:40)
[2018-07-28] MEDS: solu-MEDROL 40 MG IV SCH ×2 (15:03→21:41)
[2018-07-28] MEDS ORDERED: NovoLIN R SQ PRN (15:38)
[2018-07-28] MEDS: BUMEX 1 MG IV SCH (16:42)
[2018-07-28] MEDS ORDERED: BUMEX 1 MG PO SCH (17:00)
[2018-07-28] MEDS ORDERED: Acular OPTH SOL OP SCH (17:00)
[2018-07-28 19:10] LABS: Appearance CLEAR (CLEAR); Bilirubin NEGATIVE (NEGATIVE); Blood NEGATIVE Ery/ul (0-5); Glucose NEGATIVE (NEGATIVE); Ketones NEGATIVE (NEGATIVE); Leukocyte Esterase TRACE (NEGATIVE); Nitrite NEGATIVE (NEGATIVE); Protein,Urine Dip NEGATIVE (Negative); Specific Gravity 1.011 (1.005-1.025); Urobilinogen NEGATIVE mg/dL (0-1)
[2018-07-28] MEDS: Klor Con 10 MEQ PO SCH (21:40)
[2018-07-28] MEDS: Pepcid 20 MG PO SCH (21:40)
[2018-07-28] MEDS: Zocor 10MG PO SCH (21:40)
[2018-07-28] MEDS: Lopressor 25MG Tab PO SCH (21:40)
[2018-07-28] MEDS: MAG-OX 400 PO SCH (21:41)
[2018-07-28] MEDS ORDERED: BUMETANIDE 1 MG PO SCH (22:00)
[2018-07-28 22:37] LABS: BAND 3 % (0.0-2.0); Basophil 2 % (0.0-1.0); Eosinophil 4 % (0.00-3.0); Lymphocytes 8 % (24-44); Monocyte 4 % (0.0-12.0); Neutrophils 79 % (36.-66.); Platelet Estimate NORMAL (NORMAL); Total Cells Counted 100
[2018-07-28 22:38] LABS: Ovalocytes 1+; Poikilocytosis 1+
[2018-07-29] MEDS: PROVENTIL 2.5 MG/3 ML NEB IH SCH ×4 (06:44→19:40)
[2018-07-29] MEDS: Sodium Chloride 0.9% 1000 ML 1,000 ML IV SCH (09:03)
[2018-07-29] MEDS: Pepcid 20 MG PO SCH ×2 (09:06→22:15)
[2018-07-29] MEDS: Protonix 40MG Tablet PO SCH (09:06)
[2018-07-29] MEDS: BUMEX 1 MG IV SCH ×2 (09:06→16:06)
[2018-07-29] MEDS: solu-MEDROL 40 MG IV SCH (09:06)
[2018-07-29] MEDS: ENOXAPARIN SODIUM SQ SCH (09:06)
[2018-07-29] MEDS: MAG-OX 400 PO SCH ×2 (09:06→22:15)
[2018-07-29] MEDS: FOLATE 1 MG PO SCH (09:06)
[2018-07-29] MEDS: ZYLOPRIM 300 MG PO SCH (09:06)
[2018-07-29] MEDS: Apresoline 25 MG TABLET PO SCH ×3 (09:07→22:14)
[2018-07-29] MEDS: ROCEPHIN 1 Gm-D5w 50 ml Bag** 1 G/50 ML IVPB IV SCH (09:07)
[2018-07-29] MEDS: Klor Con 10 MEQ PO SCH ×2 (09:07→22:14)
[2018-07-29] MEDS: Lopressor 25MG Tab PO SCH ×2 (09:15→22:14)
[2018-07-29] MEDS ORDERED: MEDROL 4 MG PO SCH (10:00)
--- NOTE | 2018-07-29 10:48 | PCM.NOTE ---
Date and Time: 07/29/18 1047 Subjective Assessment: doing ok - Review of Systems Constitutional: No Fever, No Chills Eyes: No Symptoms Ears, Nose, & Throat: No Symptoms Respiratory: No Cough, No Short Of Breath Cardiac: No Chest Pain, No Edema, No Syncope Abdominal/Gastrointestinal: No Abdominal Pain, No Nausea, No Vomiting, No Diarrhea Genitourinary Symptoms: No Dysuria Musculoskeletal: No Back Pain, No Neck Pain Skin: No Rash Neurological: No Dizziness, No Focal Weakness, No Sensory Changes Psychological: No Symptoms Endocrine: No Symptoms Hematologic/Lymphatic: No Symptoms Immunological/Allergic: No Symptoms Objective Exam General Appearance: no apparent distress, alert Neurologic Exam: alert, oriented x 3, cooperative, normal mood/affect, nml cerebellar function, sensation nml, No motor deficits Skin Exam: normal color, warm, dry Eye Exam: PERRL, EOMI, eyes nml inspection Ears, Nose, Throat Exam: normal ENT inspection, pharynx normal, moist mucous membranes Neck Exam: normal inspection, non-tender, supple, full range of motion Respiratory Exam: normal breath sounds, lungs clear, No respiratory distress Cardiovascular Exam: regular rate/rhythm, normal heart sounds Gastrointestinal/Abdomen Exam: soft, No tenderness, No mass Extremity Exam: normal inspection, normal range of motion Back Exam: normal inspection, normal range of motion, No CVA tenderness, No vertebral tenderness Male Genitalia Exam: deferred Rectal Exam: deferred OBJECTIVE DATA Vital Signs: Vital Signs - 24 hr Temp Pulse Resp BP Pulse Ox 07/29/18 07:08 98.1 F 61 17 124/54 96 07/29/18 06:49 64 18 97 07/29/18 04:00 98.0 F 56 L 17 166/77 97 07/28/18 23:24 98.0 F 60 20 152/72 97 07/28/18 19:51 98.2 F 73 19 151/70 96 07/28/18 19:36 74 18 93 L 07/28/18 15:42 98.2 F 80 18 197/86 99 07/28/18 14:41 73 20 97 07/28/18 13:33 98.4 F 86 18 185/77 93 L 07/28/18 13:20 95 07/28/18 11:57 97 Oxygen-Last 24 hours O2 Percentage 3 Liters = 32% O2 Percentage 3 Liters = 32% O2 Percentage 3 Liters = 32% O2 Percentage 3 Liters = 32% Pain Assessment - Last Documented Pain Intensity 0 Pain Scale Used 0-10 Pain Scale Intake and Output: Intake & Output 07/26/18 07/27/18 07/28/18 07/29/18 11:59 11:59 11:59 11:59 Intake Total 2324 Output Total 550 Balance 1774 Weight 81 kg Lab Results: Accuchecks Date 07/29/18 Date 07/28/18 Date 07/28/18 Time 07:28 Time 21:15 Time 16:30 Accucheck Value: 159 Accucheck Value: 148 Accucheck Value: 105 Lab Results-Last 24 Hours 07/28/18 07/28/18 07/28/18 Range/Units 14:00 14:00 14:00 WBC 10.4 (4.0-10.5) K/mm3 RBC 5.10 (4.1-5.6) M/mm3 Hgb 15.6 (12.5-18.0) gm/dl Hct 47.1 (42-50) % MCV 92.4 (78-100) fl MCH 30.6 (26-32) pg MCHC 33.1 (32-36) g/dl RDW 15.7 H (11.5-14.0) % Plt Count 110 L (150-450) K/mm3 MPV 10.4 H (6-9.5) fl Segmented Neutrophils 79 H (36.-66.) % Band Neutrophils 3 H (0.0-2.0) % Lymphocytes (Manual) 8 L (24-44) % Monocytes (Manual) 4 (0.0-12.0) % Eosinophils (Manual) 4 H (0.00-3.0) % Basophils (Manual) 2 H (0.0-1.0) % Platelet Estimate NORMAL (NORMAL) RBC Morphology ABNORMAL Poikilocytosis 1+ Ovalocytes 1+ Sodium 143 (137-145) mmol/L Potassium 3.8 (3.5-5.1) mmol/L Chloride 105 (98-107) mmol/L Carbon Dioxide 30 (22-30) mmol/L Anion Gap 11.4 (5-15) MEQ/L BUN 22 H (9-20) mg/dL Creatinine 1.47 H (0.66-1.25) mg/dL Estimated GFR 49.5 ML/MIN Glucose 92 (74-106) mg/dL Calcium 8.8 (8.4-10.2) mg/dL Total Bilirubin 0.50 (0.2-1.3) mg/dL AST 23 (17-59) U/L ALT 27 (0-50) U/L Alkaline Phosphatase 89 (38-126) U/L Troponin I 0.016 (0.000-0.034) ng/mL NT-Pro-B Natriuret Pep 779 (0-1800) pg/mL Serum Total Protein 6.6 (6.3-8.2) g/dL Albumin 3.6 (3.5-5.0) g/dL Prealbumin 25.93 (17.6-36.0) mg/dL Urine Color (YELLOW) Urine Appearance (CLEAR) Urine pH (5-6) Ur Specific [place] (1.005-1.025) Urine Protein (Negative) Urine Ketones (NEGATIVE) Urine Blood (0-5) Marcelino/ul Urine Nitrite (NEGATIVE) Urine Bilirubin (NEGATIVE) Urine Urobilinogen (0-1) mg/dL Ur Leukocyte Esterase (NEGATIVE) Urine WBC (Auto) (0-5) /HPF Urine RBC (Auto) (0-2) /HPF U Epithel Cells (Auto) (FEW) /HPF Urine Mucus (Auto) (NEGATIVE) /HPF Urine Glucose (NEGATIVE) mg/dL 07/28/18 Range/Units 18:50 WBC (4.0-10.5) K/mm3 RBC (4.1-5.6) M/mm3 Hgb (12.5-18.0) gm/dl Hct (42-50) % MCV (78-100) fl MCH (26-32) pg MCHC (32-36) g/dl RDW (11.5-14.0) % Plt Count (150-450) K/mm3 MPV (6-9.5) fl Segmented Neutrophils (36.-66.) % Band Neutrophils (0.0-2.0) % Lymphocytes (Manual) (24-44) % Monocytes (Manual) (0.0-12.0) % Eosinophils (Manual) (0.00-3.0) % Basophils (Manual) (0.0-1.0) % Platelet Estimate (NORMAL) RBC Morphology Poikilocytosis Ovalocytes Sodium (137-145) mmol/L Potassium (3.5-5.1) mmol/L Chloride (98-107) mmol/L Carbon Dioxide (22-30) mmol/L Anion Gap (5-15) MEQ/L BUN (9-20) mg/dL Creatinine (0.66-1.25) mg/dL Estimated GFR ML/MIN Glucose (74-106) mg/dL Calcium (8.4-10.2) mg/dL Total Bilirubin (0.2-1.3) mg/dL AST (17-59) U/L ALT (0-50) U/L Alkaline Phosphatase (38-126) U/L Troponin I (0.000-0.034) ng/mL NT-Pro-B Natriuret Pep (0-1800) pg/mL Serum Total Protein (6.3-8.2) g/dL Albumin (3.5-5.0) g/dL Prealbumin (17.6-36.0) mg/dL Urine Color STRAW (YELLOW) Urine Appearance CLEAR (CLEAR) Urine pH 7.0 (5-6) Ur Specific [place] 1.011 (1.005-1.025) Urine Protein NEGATIVE (Negative) Urine Ketones NEGATIVE (NEGATIVE) Urine Blood NEGATIVE (0-5) Marcelino/ul Urine Nitrite NEGATIVE (NEGATIVE) Urine Bilirubin NEGATIVE (NEGATIVE) Urine Urobilinogen NEGATIVE (0-1) mg/dL Ur Leukocyte Esterase TRACE (NEGATIVE) Urine WBC (Auto) 0-2 (0-5) /HPF Urine RBC (Auto) 0-2 (0-2) /HPF U Epithel Cells (Auto) RARE (FEW) /HPF Urine Mucus (Auto) SLIGHT (NEGATIVE) /HPF Urine Glucose NEGATIVE (NEGATIVE) mg/dL Radiology Exams: Radiology Procedures Category Date Time Status CHEST 2 VIEWS (PA AND LAT) Stat Exams 07/28/18 13:09 Completed ECHO W/2D AND DOPPLER [US] Routine Exams 07/28/18 11:57 Taken Assessment/Plan (1) CHF (congestive heart failure), NYHA class III Current Visit: Yes Status: Acute Qualifiers: Congestive heart failure chronicity: acute on chronic Code(s): I50.9 - HEART FAILURE, UNSPECIFIED (2) COPD exacerbation Current Visit: Yes Status: Acute Code(s): J44.1 - CHRONIC OBSTRUCTIVE PULMONARY DISEASE W (ACUTE) EXACERBATION (3) CAD (coronary artery disease) Current Visit: Yes Status: Chronic Qualifiers: Coronary Disease-Associated Artery/Lesion type: [place] artery [place] vs. transplanted heart: [place] heart Associated angina: without angina Qualified Code(s): I25.10 - Atherosclerotic heart disease of [place] coronary artery without angina pectoris Code(s): I25.10 - ATHSCL HEART DISEASE OF [place] CORONARY ARTERY W/O ANG PCTRS (4) COPD (chronic obstructive pulmonary disease) Current Visit: Yes Status: Chronic Qualifiers: COPD type: unspecified COPD Qualified Code(s): J44.9 - Chronic obstructive pulmonary disease, unspecified (5) HTN (hypertension), benign Current Visit: Yes Status: Chronic Code(s): I10 - ESSENTIAL (PRIMARY) HYPERTENSION
[2018-07-29] MEDS ORDERED: Sodium Chloride 0.9% 10 ML FLUSH Syringe IV PRN (12:00)
[2018-07-29] MEDS: Sodium Chloride 0.9% 10 ML FLUSH Syringe IV SCH ×2 (13:43→22:15)
[2018-07-29] MEDS ORDERED: solu-MEDROL 40 MG IV SCH (22:00)
[2018-07-29] MEDS: Zocor 10MG PO SCH (22:15)
[2018-07-30] MEDS: Sodium Chloride 0.9% 10 ML FLUSH Syringe IV SCH (05:20)
[2018-07-30] MEDS: PROVENTIL 2.5 MG/3 ML NEB IH SCH (07:32)
[2018-07-30 07:42] VITALS: BP 173/75; O2SAT 96
[2018-07-30] MEDS: Apresoline 25 MG TABLET PO SCH (09:40)
[2018-07-30] MEDS: BUMEX 1 MG IV SCH (09:41)
[2018-07-30] MEDS: ENOXAPARIN SODIUM SQ SCH (09:41)
[2018-07-30] MEDS: FOLATE 1 MG PO SCH (09:42)
[2018-07-30] MEDS: Klor Con 10 MEQ PO SCH (09:44)
[2018-07-30] MEDS: Lopressor 25MG Tab PO SCH (09:44)
[2018-07-30] MEDS: MAG-OX 400 PO SCH (09:44)
[2018-07-30] MEDS: Pepcid 20 MG PO SCH (09:44)
[2018-07-30] MEDS: Protonix 40MG Tablet PO SCH (09:45)
[2018-07-30] MEDS: ZYLOPRIM 300 MG PO SCH (09:45)
[2018-07-30] MEDS: ROCEPHIN 1 Gm-D5w 50 ml Bag** 1 G/50 ML IVPB IV SCH (09:45)
[2018-07-30] MEDS ORDERED: Medrol Dosepack PO SCH (09:45)
--- NOTE | 2018-07-30 12:22 | PCM.DS ---
Discharge Summary Date of Admission: 07/28/18 12:41 Admitting Physician: SADIA GROVER Consults: Consults on Case 07/28/18 11:57 Nutritional Consult Primary Care Provider: SADIA GROVER Allergies Allergies No Known Drug Allergies Allergy (Verified 02/03/17 17:16) Hospital Summary - Hospital Course Hospital Course: Last Vital Signs Temp 97.5 F 07/30/18 07:41 Pulse 61 07/30/18 07:41 Resp 20 07/30/18 07:41 BP 173/75 07/30/18 07:41 Pulse Ox 96 07/30/18 07:41 Allergies No Known Drug Allergies Allergy (Verified 02/03/17 17:16) Intake & Output 07/30/18 07/31/18 11:59 11:59 Intake Total 204 Output Total 300 Balance 1740 Weight 82.2 kg Orders 07/30/18 Discharge Routine Discharge/Telephone Order Routine Lab Tests 07/29/18 10:00 Hemoglobin A1c 5.58 Microbiology 07/28/18 15:00 Blood Blood Culture - Preliminary NO GROWTH TO DATE 07/28/18 14:00 Blood Blood Culture - Preliminary NO GROWTH TO DATE 07/28/18 18:39 Sputum - Expectorant Sputum Culture - Preliminary GRAM NEGATIVE ID AND SENSITIVITY PENDING - Vitals & Intake/Output Vital Signs: Vital Signs Temperature 97.5 F 07/30/18 07:41 Pulse Rate 61 07/30/18 07:41 Respiratory Rate 20 07/30/18 07:41 Blood Pressure 173/75 07/30/18 07:41 O2 Sat by Pulse Oximetry 96 07/30/18 07:41 Oxygen-Last Documented O2 Percentage 3 Liters = 32% Intake & Output: Intake & Output 07/28/18 07/29/18 07/30/18 07/31/18 11:59 11:59 11:59 11:59 Intake Total 2324 2040 Output Total 550 300 Balance 1774 1740 Weight 81 kg 82.2 kg - Lab Result Diagrams: 07/28/18 14:00 07/28/18 14:00 Lab Results-Last 24 Hrs: Accuchecks Date 07/30/18 Time 07:30 Accucheck Value: 134 Lab Results-Last 24 Hours 07/29/18 Range/Units 10:00 Hemoglobin A1c 5.58 (4.5-6.0) % Micro Results-Entire Visit: Microbiology 07/28/18 15:00 Blood Culture - Preliminary Blood NO GROWTH TO DATE 07/28/18 14:00 Blood Culture - Preliminary Blood NO GROWTH TO DATE 07/28/18 18:39 Sputum Culture - Preliminary Sputum - Expectorant GRAM NEGATIVE ID AND SENSITIVITY PENDING Accuchecks Date 07/30/18 Time 07:30 Accucheck Value: 134 - Radiology Exams Ordered Rad Exams-Entire Visit: Radiology Procedures Category Date Time Status CHEST 2 VIEWS (PA AND LAT) Stat Exams 07/28/18 13:09 Completed ECHO W/2D AND DOPPLER [US] Routine Exams 07/28/18 11:57 Taken - Procedures and Test Procedures and Tests throughout Hospitalization: Therapy Orders & Screens 07/28/18 11:57 EKG STAT Comment: Diagnosis: CHF Respiratory Therapy Consult ROUTINE Comment: Reason For Exam: 07/28/18 13:39 Respiratory Nebulizer UD Comment: ALBUTEROL QID Diagnosis: CHF 07/28/18 13:40 Oxygen NASAL CANNULA 3 lpm Comment: Diagnosis: CHF Peak Expiratory Flow Rate ONCE Comment: Reason For Exam: Diagnosis: CHF 07/28/18 13:41 Respiratory Therapy Assessment DAILY Comment: Diagnosis: CHF Discharge Exam General Appearance: no apparent distress, alert Neurologic Exam: alert, oriented x 3, cooperative, normal mood/affect, nml cerebellar function, sensation nml, No motor deficits Skin Exam: normal color, warm, dry Eye Exam: PERRL, EOMI, eyes nml inspection Ears, Nose, Throat Exam: normal ENT inspection, pharynx normal, moist mucous membranes Neck Exam: normal inspection, non-tender, supple, full range of motion Respiratory Exam: normal breath sounds, lungs clear, No respiratory distress Cardiovascular Exam: regular rate/rhythm, normal heart sounds Gastrointestinal/Abdomen Exam: soft, No tenderness, No mass Extremity Exam: normal inspection, normal range of motion Back Exam: normal inspection, normal range of motion, No CVA tenderness, No vertebral tenderness Male Genitalia Exam: deferred Rectal Exam: deferred Final Diagnosis/Problem List - Final Discharge Diagnosis/Problem (1) CHF (congestive heart failure), NYHA class III Status: Resolved (2) COPD exacerbation Status: Resolved (3) CAD (coronary artery disease) Status: Chronic Priority: High (4) COPD (chronic obstructive pulmonary disease) Status: Chronic Priority: Medium (5) HTN (hypertension), benign Status: Chronic Priority: Medium - Discharge Discharge Date: 07/30/18 Disposition: Home, Self-Care Condition: Stable Prescriptions: New Cephalexin Mh 500 mg [Keflex 500 mg] 500 mg PO QID #20 capsule Methylprednisolone Packet [Medrol Dosepack] 4 mg PO UD packet Continue Folic Acid 1 mg PO DAILY Simvastatin [Zocor] 10 mg PO HS Magnesium Oxide 400 mg [Mag-Ox 400] 400 mg PO BID Potassium Chloride 10 Meq Tab* [Klor Con 10 MEQ] 20 meq PO BID PANTOPRAZOLE 40 mg Tablet [Protonix 40MG Tablet] 40 mg PO DAILY Hydralazine HCl 50 mg PO TID Bumetanide [Bumex] 1 mg PO BID Metoprolol Tartrate 25 mg [Lopressor 25MG Tab] 25 mg PO BID Famotidine 20 mg [Pepcid 20 MG] 20 mg PO BID Hydroxychloroquine Sulfate [Plaquenil] 200 mg PO BID Allopurinol 300 mg [Zyloprim 300 mg] 150 mg PO DAILY Albuterol 2.5 mg/3 ml Neb [Proventil 2.5 mg/3 ml Neb] 2.5 mg NEB Q6HPRN PRN PRN Reason: Shortness Of Breath Ketorolac Tromethamine 0.5% [Acular OPTH DAWNA] 1 drops OP QID Discontinued Methylprednisolone 4 mg [Medrol 4 mg] 2 tab PO DAILY Instructions: Heart Failure, Adult (DC), Exacerbation of COPD (DC) Follow up with: SADIA GROVER MD [Primary Care Provider] - 08/06/18 10:15 am (at [facility]) Forms: CHF Discharge Instructions
[2018-07-30 13:43] VITALS: PULSE 63
--- NOTE | 2018-07-30 14:00 | ECHO ---
Transthoracic echocardiographic examination and color Doppler was done on 07/28/2018. INDICATION: Congestive heart failure, hypertension, shortness of breath. IMPRESSION: 1) NO REGIONAL WALL MOTION ABNORMALITY. ESTIMATED GLOBAL LEFT VENTRICULAR EJECTION FRACTION BETWEEN 50 AND 60%. 2) MILD TO MODERATE MITRAL REGURGITATION. 3) MILD TRICUSPID REGURGITATION. RIGHT VENTRICULAR SYSTOLIC PRESSURE OF 45 MM OF MERCURY. 4) MILD PULMONARY INSUFFICIENCY. 5) LEFT VENTRICULAR HYPERTROPHY. The left ventricle is visualized and demonstrated adequate motion of all the segments. Estimated global left ventricular ejection fraction between 50 and 60%. There is mild left ventricular hypertrophy. The mitral valve is seen and this opens adequately. There is mild to moderate mitral regurgitation. Left atrium is normal. The aortic valve opens adequately. The right side chambers are normal. There is mild tricuspid regurgitation. The right ventricular systolic pressure of 45 mm of [place]. There is also mild pulmonic insufficiency.
== END 2018-07-30 10:45 | disposition home or self-care (01) ==
LOC: MED SURG 12:41
PROVIDERS: ADMIT General Practice; ATTEND General Practice
DX: I50.9 Heart failure, unspecified (principal); J44.1 Chronic obstructive pulmonary disease with (acute) exacerbation; I25.10 Atherosclerotic heart disease of native coronary artery without angina pectoris; J44.9 Chronic obstructive pulmonary disease, unspecified; I10 Essential (primary) hypertension; Z79.899 Other long term (current) drug therapy; Z23 Encounter for immunization
CPT/HCPCS: 36415; 71046; 80048; 80053; 81001; 82962; 83036; 83880; 84134; 84484; 85025; 87040; 87070; 87077; 87186; 93005; 93268; 93306; 94150; 94640; 94760; G0378; J7609; 90662; G0008; J0696; J1650; J2920; A9270-GY

== ENCOUNTER 2018-11-10 16:04 | Observation (INO) | payer MEDICARE ==
[2018-11-10] MEDS ORDERED: Tessalon Perles 100 MG PO PRN (17:35)
--- NOTE | 2018-11-10 17:43 | PCM.HP ---
History of Present Illness - Chief Complaint Chief Complaint: worsening pedal edema and shortness of breath for 3 days History of Present Illness: is a 78 year old male with PMHx of lung cancer, Chronic renal insufficiency, GI AV malformation, HTN, CAD started having shortness of breath associated with worsening pedal edema, - Review of Systems Constitutional: Lethargy, Weakness, No Fever, No Chills Eyes: No Symptoms Ears, Nose, & Throat: No Symptoms Respiratory: Orthopnea, Short Of Breath, Wheezing, No Cough Cardiac: Edema, Orthopnea, PND, No Chest Pain, No Syncope Abdominal/Gastrointestinal: No Abdominal Pain, No Nausea, No Vomiting, No Diarrhea Genitourinary Symptoms: No Dysuria Musculoskeletal: No Back Pain, No Neck Pain Skin: No Rash Neurological: No Dizziness, No Focal Weakness, No Sensory Changes Psychological: No Symptoms Endocrine: No Symptoms Hematologic/Lymphatic: No Symptoms Immunological/Allergic: No Symptoms Medications & Allergies Home Medications: Home Medication List Folic Acid 1 mg PO DAILY 01/28/15 [History Confirmed 07/28/18] Simvastatin [Zocor] 10 mg PO HS 01/28/15 [History Confirmed 07/28/18] Magnesium Oxide 400 mg [Mag-Ox 400] 400 mg PO BID 04/03/15 [History Confirmed 07/28/18] Potassium Chloride 10 Meq Tab* [Klor Con 10 MEQ] 20 meq PO BID 05/08/15 [ History Confirmed 07/28/18] Hydralazine HCl 50 mg PO TID 02/26/16 [History Confirmed 07/28/18] PANTOPRAZOLE 40 mg Tablet [Protonix 40MG Tablet] 40 mg PO DAILY 02/26/16 [ History Confirmed 07/28/18] Bumetanide [Bumex] 1 mg PO BID 10/29/16 [History Confirmed 07/28/18] Famotidine 20 mg [Pepcid 20 MG] 20 mg PO BID 02/03/17 [History Confirmed 07/28/18] Metoprolol Tartrate 25 mg [Lopressor 25MG Tab] 25 mg PO BID 02/03/17 [ History Confirmed 07/28/18] Albuterol 2.5 mg/3 ml Neb [Proventil 2.5 mg/3 ml Neb] 2.5 mg NEB Q6HPRN PRN 11/26/17 [History Confirmed 07/28/18] Allopurinol 300 mg [Zyloprim 300 mg] 150 mg PO DAILY 11/26/17 [History Confirmed 07/28/18] Hydroxychloroquine Sulfate [Plaquenil] 200 mg PO BID 11/26/17 [History Confirmed 07/28/18] Ketorolac Tromethamine 0.5% [Acular OPTH DAWNA] 1 drops OP QID 03/27/18 [ History Confirmed 07/28/18] Cephalexin Mh 500 mg [Keflex 500 mg] 500 mg PO QID #20 capsule 07/30/18 [Rx] Methylprednisolone Packet [Medrol Dosepack] 4 mg PO UD packet 07/30/18 [ Rx] Allergies/Adverse Reactions: Allergies Allergy/AdvReac Type Severity Reaction Status Date / Time No Known Drug Allergies Allergy Verified 02/03/17 17:16 - Past Medical History Past Medical History: Yes Neurological History: TIA ENT History: Cataracts Cardiac History: Coronary Artery Disease, High Cholesterol, Hypertension, Myocardial Infarction (VT) Respiratory History: CHF, COPD, Pneumonia Endocrine Medical History: No Pertinent History Musculoskelatal History: No Pertinent History GI Medical History: GI Bleed, Other History: Other Pyscho-Social History: No Pertinent History Male Reproductive Disorders: No Pertinent History Comment: some kidney failure, anemia with blood transfusion - Past Surgical History Past Surgical History: Yes Neuro Surgical History: No Pertinent History Cardiac History: Cardiac Catheterization, Cardiac Stent Respiratory Surgery: No Pertinent History GI Surgical History: Appendectomy, Hernia Repair Genitourinary Surgical Hx: No Pertinent History Musculskeletal Surgical Hx: No Pertinent History Male Surgical History: No Pertinent History Other Surgical History: EGD AND COLONOSCOPY LAST DONE APRIL 2016 - Social History Smoking Status: Former smoker How long have you smoked: 50yrs Exposure to second hand smoke: Yes Alcohol: None Drug Use: none - Physical Exam General Appearance: no apparent distress, alert Neurologic Exam: alert, oriented x 3, cooperative, normal mood/affect, nml cerebellar function, nml station & gait, sensation nml, No motor deficits Eye Exam: PERRL/EOMI, eyes nml inspection Ears, Nose, Throat Exam: normal ENT inspection, TMs normal, pharynx normal, moist mucous membranes Neck Exam: normal inspection, non-tender, supple, full range of motion Respiratory Exam: normal breath sounds, lungs clear, No respiratory distress Cardiovascular Exam: tachycardia, irregular, capillary refill >3 sec, edema Gastrointestinal/Abdomen Exam: soft, normal bowel sounds, No tenderness, No mass Back Exam: normal inspection, normal range of motion, No CVA tenderness, No vertebral tenderness Extremity Exam: normal inspection, normal range of motion, pelvis stable Skin Exam: normal color, warm, dry, No rash Lymphatic Exam: No adenopathy Results - Radiology Impressions Radiology Exams & Impressions: Radiology Procedures Category Date Time Status CHEST 2 VIEWS (PA AND LAT) Routine Exams 11/12/18 06:00 Ordered CHEST 2 VIEWS (PA AND LAT) Stat Exams 11/10/18 17:32 Ordered ECHO W/2D AND DOPPLER [US] Routine Exams 11/10/18 17:32 Ordered - Other Procedures and Tests Respiratory Therapy 11/10/18 17:32 EKG STAT Oxygen NASAL CANNULA 2 lpm Assessment/Plan (1) CHF (congestive heart failure), NYHA class III Current Visit: Yes Status: Resolved Qualifiers: Congestive heart failure type: combined Congestive heart failure chronicity : acute on chronic Qualified Code(s): I50.43 - Acute on chronic combined systolic (congestive) and diastolic (congestive) heart failure Assessment & Plan: will start patient on CHF pathway, Allergies No Known Drug Allergies Allergy (Verified 02/03/17 17:16) Active Medications Bumetanide (Bumex 1 Mg) 1 mg IV BID DIURETIC SIMBA Stop: 12/11/18 09:59 Orders 11/10/18 17:32 IV Insertion STAT Implement CHF Pathway ROUTINE Miscellaneous Nursing Order ROUTINE Place in Observation ROUTINE Weight,Daily 0600 Nutritional Consult ROUTINE CHEST 2 VIEWS (PA AND LAT) Stat ECHO W/2D AND DOPPLER [US] Routine BMP Stat CBC Stat NT PRO BNP Stat TROPONIN Stat EKG STAT Oxygen NASAL CANNULA 2 lpm Pulse Oximetry OVERNIGHT 11/10/18 17:37 Consult Cardiology ROUTINE 11/10/18 Dinner Low Sodium 11/11/18 10:00 Bumetanide 1 mg [Bumex 1 mg] 1 mg IV BID DIURETIC 11/12/18 06:00 CHEST 2 VIEWS (PA AND LAT) Routine Code(s): I50.9 - HEART FAILURE, UNSPECIFIED (2) Chronic renal disease, stage 4, severely decreased glomerular filtration rate (GFR) between 15-29 mL/min/1.73 square meter Current Visit: Yes Status: Acute Code(s): N18.4 - CHRONIC KIDNEY DISEASE, STAGE 4 (SEVERE) (3) CAD (coronary artery disease) Current Visit: No Status: Chronic Qualifiers: Code(s): I25.10 - ATHSCL HEART DISEASE OF [place] CORONARY ARTERY W/O ANG PCTRS (4) COPD (chronic obstructive pulmonary disease) Current Visit: No Status: Chronic Qualifiers: (5) Hypertension Current Visit: No Status: Chronic Code(s): I10 - ESSENTIAL (PRIMARY) HYPERTENSION
[2018-11-10 18:34] LABS: Hematocrit 38.5 % (42-50); Hemoglobin 12.3 gm/dl (12.5-18.0); Mean Cell Volume 92.8 fl (78-100); Mean Corpuscular Hemoglobin 29.6 pg (26-32); Mean Corpuscular Hgb Concent. 31.9 g/dl (32-36); Mean Platelet Volume 9.5 fl (6-9.5); Platelet Count 189 K/mm3 (150-450); Red Blood Count 4.15 M/mm3 (4.1-5.6); Red Cell Distribution Width 15.1 % (11.5-14.0); White Blood Count 9.9 K/mm3 (4.0-10.5)
[2018-11-10 18:41] LABS: ANION GAP 12.5 MEQ/L (5-15); BLOOD UREA NITROGEN 24 mg/dL (9-20); CHLORIDE 102 mmol/L (98-107); Calcium 8.9 mg/dL (8.4-10.2); Carbon Dioxide 29 mmol/L (22-30); Creatinine 1 1.58 mg/dL (0.66-1.25); Glucose 123 mg/dL (74-106); NT PRO BNP 783 pg/mL (0-1800); Potassium 4.3 mmol/L (3.5-5.1); SODIUM 140 mmol/L (137-145); TROPONIN < 0.012 ng/mL (0.000-0.034)
[2018-11-10] MEDS ORDERED: BUMEX 1 MG ONE (18:48)
[2018-11-10] MEDS: BUMEX 1 MG IV SCH (18:50)
[2018-11-10] MEDS ORDERED: PROVENTIL 2.5 MG/3 ML NEB IH SCH (19:00)
[2018-11-10] MEDS ORDERED: PROVENTIL 2.5 MG/3 ML NEB IH ONE (21:37)
[2018-11-10] MEDS: Klor Con 10 MEQ PO SCH (21:59)
[2018-11-10] MEDS: Apresoline 25 MG TABLET PO SCH (21:59)
[2018-11-10] MEDS: Zocor 10MG PO SCH (22:00)
[2018-11-10] MEDS: MAG-OX 400 PO SCH (22:00)
[2018-11-10] MEDS: PERCOCET TABLET 5/325MG PO SCH (22:00)
[2018-11-10] MEDS: Lopressor 25MG Tab PO SCH (22:00)
[2018-11-10] MEDS: Pepcid 20 MG PO SCH (22:00)
[2018-11-10] MEDS ORDERED: Klonopin 0.5 MG PO SCH (22:00)
[2018-11-11] MEDS ORDERED: PROVENTIL 2.5 MG/3 ML NEB IH ONE (05:30)
[2018-11-11] MEDS: PROVENTIL 2.5 MG/3 ML NEB IH SCH ×2 (05:49→20:13)
[2018-11-11] MEDS ORDERED: PROVENTIL 2.5 MG/3 ML NEB IH PRN (06:53)
--- NOTE | 2018-11-11 08:52 | XRAY ---
Indication: Leg swelling. History lung cancer. Comparison: July 28, 2018. PA/lateral chest demonstrates new diffuse left lung interstitial alveolar opacities without consolidation/large effusion. Remaining chest demonstrates stable COPD, CIPD, left lung calcified pleural plaquing, and left costophrenic angle blunting. Heart is not enlarged. Bony thorax again demonstrates osteopenia and degenerative changes with new T8/T9 compression fractures. Impression: 1. New left lung interstitial alveolar opacities. Rule out pneumonia. 2. New T8/T9 compression fractures of uncertain chronicity. 3. Stable COPD, CIPD, left lung calcified pleural plaquing, and left costophrenic angle blunting.
[2018-11-11] MEDS: BUMEX 1 MG IV SCH ×2 (09:04→19:50)
[2018-11-11] MEDS: MAG-OX 400 PO SCH ×2 (09:04→21:27)
[2018-11-11] MEDS: Pepcid 20 MG PO SCH ×2 (09:04→21:27)
[2018-11-11] MEDS: Protonix 40MG Tablet PO SCH (09:04)
[2018-11-11] MEDS: Klor Con 10 MEQ PO SCH ×2 (09:04→21:27)
[2018-11-11] MEDS: Apresoline 25 MG TABLET PO SCH ×2 (09:04→21:27)
[2018-11-11] MEDS: FOLATE 1 MG PO SCH (09:04)
[2018-11-11] MEDS: PERCOCET TABLET 5/325MG PO SCH ×2 (09:05→23:22)
[2018-11-11] MEDS: Lopressor 25MG Tab PO SCH ×2 (09:05→21:26)
[2018-11-11] MEDS: MEDROL 4 MG PO SCH (09:05)
[2018-11-11] MEDS: ZYLOPRIM 300 MG PO SCH (10:53)
--- NOTE | 2018-11-11 15:41 | PCM.NOTE ---
Date and Time: 11/11/18 153 Subjective Assessment: c/o of severe mid back pain - Review of Systems Constitutional: No Fever, No Chills Eyes: No Symptoms Ears, Nose, & Throat: No Symptoms Respiratory: Cough, Orthopnea, Short Of Breath Cardiac: Edema, No Chest Pain, No Syncope Abdominal/Gastrointestinal: No Abdominal Pain, No Nausea, No Vomiting, No Diarrhea Genitourinary Symptoms: No Dysuria Musculoskeletal: Back Pain, No Neck Pain Skin: No Rash Neurological: Focal Weakness, Gait Changes, No Dizziness, No Sensory Changes Psychological: No Symptoms Endocrine: No Symptoms Hematologic/Lymphatic: No Symptoms Immunological/Allergic: No Symptoms Objective Exam General Appearance: moderate distress, alert Neurologic Exam: alert, oriented x 3, cooperative, normal mood/affect, nml cerebellar function, sensation nml, No motor deficits Skin Exam: normal color, warm, dry Eye Exam: PERRL, EOMI, eyes nml inspection Ears, Nose, Throat Exam: normal ENT inspection, pharynx normal, moist mucous membranes Neck Exam: normal inspection, non-tender, supple, full range of motion Respiratory Exam: normal breath sounds, lungs clear, No respiratory distress Cardiovascular Exam: regular rate/rhythm, normal heart sounds Gastrointestinal/Abdomen Exam: soft, No tenderness, No mass Extremity Exam: normal inspection, normal range of motion Back Exam: CVA tenderness, vertebral tenderness, decreased range of motion, muscle spasm, point tenderness Male Genitalia Exam: deferred Rectal Exam: deferred OBJECTIVE DATA Vital Signs: Vital Signs - 24 hr Temp Pulse Resp BP Pulse Ox 11/11/18 12:00 98.5 F 65 20 144/64 97 11/11/18 08:00 97.8 F 78 18 165/79 93 L 11/11/18 05:49 68 20 95 11/11/18 04:35 97.8 F 66 20 197/95 97 11/11/18 02:54 100 11/11/18 00:00 98.4 F 62 20 168/68 94 L 11/10/18 21:36 73 20 95 11/10/18 20:00 73 20 165/78 98 11/10/18 17:30 97.5 F 63 24 173/75 97 Oxygen-Last 24 hours O2 Percentage 4 Liters = 36% O2 Percentage 4 Liters = 36% O2 Percentage 4 Liters = 36% O2 Percentage 4 Liters = 36% O2 Percentage 4 Liters = 36% O2 Percentage 4 Liters = 36% Pain Assessment - Last Documented Pain Intensity 5 Pain Scale Used 0-10 Pain Scale Intake and Output: Intake & Output 11/09/18 11/10/18 11/11/18 11/12/18 11:59 11:59 11:59 11:59 Intake Total 480 240 Output Total 1350 1900 Balance -870 -1660 Weight 81.9 kg Lab Results: Lab Results-Last 24 Hours 11/10/18 11/10/18 Range/Units 17:32 17:32 WBC 9.9 (4.0-10.5) K/mm3 RBC 4.15 (4.1-5.6) M/mm3 Hgb 12.3 L (12.5-18.0) gm/dl Hct 38.5 L (42-50) % MCV 92.8 (78-100) fl MCH 29.6 (26-32) pg MCHC 31.9 L (32-36) g/dl RDW 15.1 H (11.5-14.0) % Plt Count 189 (150-450) K/mm3 MPV 9.5 (6-9.5) fl Sodium 140 (137-145) mmol/L Potassium 4.3 (3.5-5.1) mmol/L Chloride 102 (98-107) mmol/L Carbon Dioxide 29 (22-30) mmol/L Anion Gap 12.5 (5-15) MEQ/L BUN 24 H (9-20) mg/dL Creatinine 1.58 H (0.66-1.25) mg/dL Estimated GFR 45.4 ML/MIN Glucose 123 H (74-106) mg/dL Calcium 8.9 (8.4-10.2) mg/dL Troponin I < 0.012 (0.000-0.034) ng/mL NT-Pro-B Natriuret Pep 783 (0-1800) pg/mL Radiology Exams: Radiology Procedures Category Date Time Status CHEST 2 VIEWS (PA AND LAT) Routine Exams 11/12/18 06:00 Ordered CHEST 2 VIEWS (PA AND LAT) Stat Exams 11/10/18 17:32 Completed ECHO W/2D AND DOPPLER [US] Routine Exams 11/11/18 09:00 Taken MRI L-SPINE WITHOUT CONTRAST [MRI] Stat Exams 11/11/18 14:56 Ordered MRI T-SPINE WITHOUT CONTRAST [MRI] Stat Exams 11/11/18 14:56 Ordered Assessment/Plan (1) CHF (congestive heart failure), NYHA class III Current Visit: Yes Status: Resolved Qualifiers: Congestive heart failure type: combined Congestive heart failure chronicity : acute on chronic Qualified Code(s): I50.43 - Acute on chronic combined systolic (congestive) and diastolic (congestive) heart failure Code(s): I50.9 - HEART FAILURE, UNSPECIFIED (2) Chronic renal disease, stage 4, severely decreased glomerular filtration rate (GFR) between 15-29 mL/min/1.73 square meter Current Visit: Yes Status: Acute Code(s): N18.4 - CHRONIC KIDNEY DISEASE, STAGE 4 (SEVERE) (3) CAD (coronary artery disease) Current Visit: No Status: Chronic Qualifiers: Code(s): I25.10 - ATHSCL HEART DISEASE OF [place] CORONARY ARTERY W/O ANG PCTRS (4) COPD (chronic obstructive pulmonary disease) Current Visit: No Status: Chronic Qualifiers: (5) Hypertension Current Visit: No Status: Chronic Code(s): I10 - ESSENTIAL (PRIMARY) HYPERTENSION (6) Squamous cell lung cancer Current Visit: Yes Status: Acute Qualifiers: Laterality: left Qualified Code(s): C34.92 - Malignant neoplasm of unspecified part of left bronchus or lung Assessment & Plan: Last Vital Signs Temp 98.5 F 11/11/18 12:00 Pulse 65 11/11/18 12:00 Resp 20 11/11/18 12:00 BP 144/64 11/11/18 12:00 Pulse Ox 97 11/11/18 12:00 Allergies No Known Drug Allergies Allergy (Verified 11/10/18 18:11) Active Medications Albuterol Sulfate (Proventil 2.5 Mg/3 Ml Neb) 2.5 mg IH BID SIMBA Stop: 12/11/18 06:59 Last Admin: 11/11/18 05:49 Dose: 2.5 mg Albuterol Sulfate (Proventil 2.5 Mg/3 Ml Neb) 2.5 mg IH Q6HPRN PRN PRN Reason: SHORTNESS OF BREATH Stop: 12/11/18 06:52 Allopurinol (Zyloprim 300 Mg) 150 mg PO DAILY [facility] Stop: 12/11/18 09:59 Last Admin: 11/11/18 10:53 Dose: 150 mg Bumetanide (Bumex 1 Mg) 1 mg IV BID DIURETIC [facility] Stop: 12/11/18 09:59 Last Admin: 11/11/18 09:04 Dose: 1 mg Dexamethasone Sodium Phosphate (Decadron 4 Mg Inj) 4 mg IV Q8HT [facility] Stop: 12/11/18 14:59 Famotidine (Pepcid 20 Mg) 20 mg PO BID [facility] Stop: 12/10/18 21:59 Last Admin: 11/11/18 09:04 Dose: 20 mg Folic Acid (Folate 1 Mg) 1 mg PO DAILY [facility] Stop: 12/11/18 09:59 Last Admin: 11/11/18 09:04 Dose: 1 mg Hydralazine HCl (Apresoline 25 Mg Tablet) 50 mg PO BID [facility] Stop: 12/10/18 21:59 Last Admin: 11/11/18 09:04 Dose: 50 mg Magnesium Oxide (Mag-Ox 400) 400 mg PO BID [facility] Stop: 12/10/18 21:59 Last Admin: 11/11/18 09:04 Dose: 400 mg Methylprednisolone (Medrol 4 Mg) 4 mg PO DAILY [facility] Stop: 12/11/18 09:59 Last Admin: 11/11/18 09:05 Dose: 4 mg Metoprolol Tartrate (Lopressor 25mg Tab) 25 mg PO BID [facility] Stop: 12/10/18 21:59 Last Admin: 11/11/18 09:05 Dose: 25 mg Morphine Sulfate (Morphine Sulfate 4 Mg Inj) 4 mg IV Q4H PRN PRN Stop: 11/16/18 15:13 Non-Formulary Drug 1 Each ( Hydroxychloroquine Sulfate [Plaquenil] 200 Mg) 200 mg PO BID [facility] Stop: 12/11/18 09:59 Last Admin: 11/11/18 09:06 Dose: 200 mg Oxycodone/Acetaminophen (Percocet Tablet 5/325mg) 1 tab PO BID [facility] Stop: 11/15/18 21:59 Last Admin: 11/11/18 09:05 Dose: 1 tab Pantoprazole Sodium (Protonix 40mg Tablet) 40 mg PO DAILY [facility] Stop: 12/11/18 09:59 Last Admin: 11/11/18 09:04 Dose: 40 mg Potassium Chloride (Klor Con 10 Meq) 20 meq PO BID [facility] Stop: 12/10/18 21:59 Last Admin: 11/11/18 09:04 Dose: 20 meq Simvastatin (Zocor 10mg) 10 mg PO HS [facility] Stop: 12/10/18 21:59 Last Admin: 11/10/18 22:00 Dose: 10 mg Intake & Output 11/11/18 11/12/18 11:59 11:59 Intake Total 480 240 Output Total 1350 1900 Balance -870 -1660 Weight 81.9 kg Orders 11/10/18 17:32 IV Insertion STAT Implement CHF Pathway ROUTINE Miscellaneous Nursing Order ROUTINE Place in Observation ROUTINE Weight,Daily 0600 Nutritional Consult ROUTINE EKG STAT 11/10/18 17:37 Consult Cardiology ROUTINE 11/10/18 17:58 Cardio-Pulmonary Rehab .as ordered 11/10/18 21:35 Oxygen Nasal Cannula 4 lpm 11/10/18 21:36 Respiratory Therapy Assessment DAILY 11/10/18 21:39 Peak Expiratory Flow Rate ONCE 11/10/18 22:00 Famotidine 20 mg [Pepcid 20 MG] 20 mg PO BID HydrALAzine HCL 25 MG TAB [Apresoline 25 MG TABLET] 50 mg PO BID Magnesium Oxide 400 mg [Mag-Ox 400] 400 mg PO BID Metoprolol Tartrate 25 mg [Lopressor 25MG Tab] 25 mg PO BID Oxycodone/APAP 5 mg/325 mg [Percocet Tablet 5/325Mg] 1 tab PO BID Potassium Chloride 10 Meq Tab* [Klor Con 10 MEQ] 20 meq PO BID Simvastatin 10 mg [Zocor 10MG] 10 mg PO HS 11/10/18 22:01 Pulse Oximetry .continuos 11/10/18 Dinner Low Sodium 11/11/18 06:53 Albuterol 2.5 mg/3 ml Neb [Proventil 2.5 mg/3 ml Neb] 2.5 mg IH Q6HPRN PRN 11/11/18 07:00 Albuterol 2.5 mg/3 ml Neb [Proventil 2.5 mg/3 ml Neb] 2.5 mg IH BID 11/11/18 09:00 ECHO W/2D AND DOPPLER [US] Routine 11/11/18 10:00 Allopurinol 300 mg [Zyloprim 300 mg] 150 mg PO DAILY Bumetanide 1 mg [Bumex 1 mg] 1 mg IV BID DIURETIC Folic Acid 1 mg [Folate 1 mg] 1 mg PO DAILY Hydroxychloroquine Sulfate [Plaquenil] 200 mg PO BID Methylprednisolone 4 mg [Medrol 4 mg] 4 mg PO DAILY PANTOPRAZOLE 40 mg Tablet [Protonix 40MG Tablet] 40 mg PO DAILY 11/11/18 14:56 MRI L-SPINE WITHOUT CONTRAST [MRI] Stat MRI T-SPINE WITHOUT CONTRAST [MRI] Stat 11/11/18 15:00 Dexamethasone 4 mg [Decadron 4 MG INJ] 4 mg IV Q8HT 11/11/18 15:14 Morphine Sulfate 4 mg Inj 4 mg IV Q4H PRN PRN 11/12/18 06:00 CHEST 2 VIEWS (PA AND LAT) Routine Lab Tests 11/10/18 11/10/18 17:32 17:32 WBC 9.9 RBC 4.15 Hgb 12.3 L Hct 38.5 L MCV 92.8 MCH 29.6 MCHC 31.9 L RDW 15.1 H Plt Count 189 MPV 9.5 Sodium 140 Potassium 4.3 Chloride 102 Carbon Dioxide 29 Anion Gap 12.5 BUN 24 H Creatinine 1.58 H Estimated GFR 45.4 Glucose 123 H Calcium 8.9 Troponin I < 0.012 NT-Pro-B Natriuret Pep 783 Code(s): C34.90 - MALIGNANT NEOPLASM OF UNSP PART OF UNSP BRONCHUS OR LUNG
[2018-11-11] MEDS: MORPHINE SULFATE 4 MG INJ IV PRN ×2 (16:07→21:25)
[2018-11-11] MEDS: Decadron 4 MG INJ IV SCH ×2 (16:07→21:25)
--- NOTE | 2018-11-11 16:36 | XRAY ---
Indication: T9 fracture. Status post fall 2 months ago. History lung cancer. Sagittal and axial MRI thoracic spine performed without contrast using T1 and T2 weighted sequences. Comparison: None. Sagittal images demonstrates normal thoracic alignment and multilevel degenerative disc desiccation signal with disc space narrowing. T8 and T9 segments demonstrates abnormal bone marrow signal, low signal on T1 and high signal on T2. Abnormal bone signal also involves the pedicles of T8. The T9 segment also demonstrates compression deformity with approximately 50% height loss. Pathologic fracture is of primary concern. No spinal canal or foraminal encroachment/stenosis. Incidental small subcentimeter T5 vertebral hemangioma. T2/T3/T10 superior endplate demonstrates degenerative discogenic signal changes, [place] type II. Spinal cord is normal in course and caliber without signal abnormality. Conus medullaris terminates at the thoracolumbar junction. Axial images are negative for disc herniation or spinal canal stenosis. Impression: 1. Abnormal T8 and T9 bone marrow signal with T9 compression deformity as detailed. Rule out pathologic fracture in this patient with history of lung cancer. 2. Incidental T5 vertebral hemangioma and multilevel degenerative changes. Comment: Case was discussed with the ordering clinician Dr. De La Torre at 1625 hrs. on November 11, 2018.
[2018-11-11] MEDS ORDERED: MORPHINE SULFATE 2 MG INJ IV ONE (17:09)
[2018-11-11] MEDS: Zocor 10MG PO SCH (21:28)
[2018-11-12] MEDS: Decadron 4 MG INJ IV SCH (06:05)
[2018-11-12] MEDS: PROVENTIL 2.5 MG/3 ML NEB IH SCH (07:08)
[2018-11-12] MEDS: Pepcid 20 MG PO SCH (08:09)
[2018-11-12] MEDS: FOLATE 1 MG PO SCH (08:09)
[2018-11-12] MEDS: Protonix 40MG Tablet PO SCH (08:09)
[2018-11-12] MEDS: MEDROL 4 MG PO SCH (08:09)
[2018-11-12] MEDS: Klor Con 10 MEQ PO SCH (08:09)
[2018-11-12] MEDS: Lopressor 25MG Tab PO SCH (08:09)
[2018-11-12] MEDS: BUMEX 1 MG IV SCH (08:09)
[2018-11-12] MEDS: Apresoline 25 MG TABLET PO SCH (08:10)
[2018-11-12] MEDS: ZYLOPRIM 300 MG PO SCH (08:12)
[2018-11-12] MEDS: MAG-OX 400 PO SCH (08:12)
[2018-11-12 08:40] VITALS: O2SAT 95
[2018-11-12] MEDS: PERCOCET TABLET 5/325MG PO SCH (10:25)
--- NOTE | 2018-11-12 11:18 | ECHO ---
DATE: 11/11/2018 PROCEDURE: Complete two-dimensional echocardiogram with color Doppler and Spectral analysis. INDICATION FOR STUDY: Congestive heart failure. REFERRING PROVIDER: Dr. De La Torre. FINDINGS: The left ventricle is normal size with moderate concentric left ventricular hypertrophy. Normal left ventricular systolic function with ejection fraction of 55 to 60%. Normal right ventricle size and systolic function. The left atrium is mildly enlarged. Right atrium is borderline enlarged. The inferior vena cava is dilated consistent with elevated right atrial pressure. The aortic valve is trileaflet and opens well. There is no aortic stenosis. There is no aortic regurgitation. The mitral valve appears grossly normal. There is moderate central mitral regurgitation. The tricuspid valve leaflets are thin and pliable. There is mild tricuspid regurgitation. Right ventricular systolic pressure is estimated at 40 mm of [place]. There is mild pulmonary hypertension. Pulmonic valve is not well visualized. There is mild pulmonic regurgitation. Aortic root is normal size. There is no pericardial effusion. SUMMARY: 1) Normal left ventricular size and systolic function with ejection fraction of 55 to 60%. 2) Normal right ventricular size and systolic function. 3) Moderate mitral regurgitation. 4) Mild tricuspid regurgitation with mild pulmonary hypertension and right ventricular systolic pressure estimated at 40 mm of [place]. 5) Mild pulmonic regurgitation. 6) Dilated inferior vena cava consistent with elevated right atrial pressure. 7) No pericardial effusion.
[2018-11-12] MEDS: MORPHINE SULFATE 4 MG INJ IV PRN (11:39)
--- NOTE | 2018-11-12 12:19 | PCM.NOTE ---
Date and Time: 11/12/18 1214 Subjective Assessment: doing better, Pain in back when he moves, - Review of Systems Constitutional: No Fever, No Chills Eyes: No Symptoms Ears, Nose, & Throat: No Symptoms Respiratory: No Cough, No Short Of Breath Cardiac: No Chest Pain, No Edema, No Syncope Abdominal/Gastrointestinal: No Abdominal Pain, No Nausea, No Vomiting, No Diarrhea Genitourinary Symptoms: No Dysuria Musculoskeletal: No Back Pain, No Neck Pain Skin: No Rash Neurological: No Dizziness, No Focal Weakness, No Sensory Changes Psychological: No Symptoms Endocrine: No Symptoms Hematologic/Lymphatic: No Symptoms Immunological/Allergic: No Symptoms Objective Exam General Appearance: mild distress, alert Neurologic Exam: alert, oriented x 3, cooperative, normal mood/affect, nml cerebellar function, sensation nml, No motor deficits Skin Exam: normal color, warm, dry Eye Exam: PERRL, EOMI, eyes nml inspection Ears, Nose, Throat Exam: normal ENT inspection, pharynx normal, moist mucous membranes Neck Exam: normal inspection, non-tender, supple, full range of motion Respiratory Exam: normal breath sounds, diminished breath sounds, prolonged expirations, crackles/rales, rhonchi, No respiratory distress Cardiovascular Exam: regular rate/rhythm, normal heart sounds Gastrointestinal/Abdomen Exam: soft, No tenderness, No mass Extremity Exam: normal inspection, normal range of motion Back Exam: normal inspection, normal range of motion, No CVA tenderness, No vertebral tenderness Male Genitalia Exam: deferred Rectal Exam: deferred OBJECTIVE DATA Vital Signs: Vital Signs - 24 hr Temp Pulse Resp BP Pulse Ox 11/12/18 08:36 66 95 11/12/18 07:25 98.2 F 67 22 180/84 96 11/12/18 04:10 98.4 F 77 20 160/70 91 L 11/12/18 00:05 98.9 F 76 20 136/64 96 11/12/18 00:00 20 11/11/18 20:14 67 20 94 L 11/11/18 20:05 98.1 F 87 22 194/84 92 L 11/11/18 20:00 20 11/11/18 16:00 98.5 F 61 20 128/72 98 Oxygen-Last 24 hours O2 Percentage 4 Liters = 36% O2 Percentage 4 Liters = 36% O2 Percentage 4 Liters = 36% O2 Percentage 4 Liters = 36% O2 Percentage 4 Liters = 36% Pain Assessment - Last Documented Pain Intensity 6 Pain Scale Used 0-10 Pain Scale Intake and Output: Intake & Output 11/10/18 11/11/18 11/12/18 11/13/18 11:59 11:59 11:59 11:59 Intake Total 480 1680 Output Total 1350 2850 Balance -870 -1170 Weight 81.9 kg 82 kg Radiology Exams: Radiology Procedures Category Date Time Status CHEST 2 VIEWS (PA AND LAT) Routine Exams 11/12/18 06:00 Ordered CHEST 2 VIEWS (PA AND LAT) Stat Exams 11/10/18 17:32 Completed ECHO W/2D AND DOPPLER [US] Routine Exams 11/11/18 09:00 Draft MRI L-SPINE WITHOUT CONTRAST [MRI] Stat Exams 11/12/18 14:56 Taken MRI T-SPINE WITHOUT CONTRAST [MRI] Stat Exams 11/11/18 14:56 Completed Assessment/Plan (1) CHF (congestive heart failure), NYHA class III Current Visit: Yes Status: Resolved Qualifiers: Congestive heart failure type: combined Congestive heart failure chronicity : acute on chronic Qualified Code(s): I50.43 - Acute on chronic combined systolic (congestive) and diastolic (congestive) heart failure Code(s): I50.9 - HEART FAILURE, UNSPECIFIED (2) Chronic renal disease, stage 4, severely decreased glomerular filtration rate (GFR) between 15-29 mL/min/1.73 square meter Current Visit: Yes Status: Acute Code(s): N18.4 - CHRONIC KIDNEY DISEASE, STAGE 4 (SEVERE) (3) CAD (coronary artery disease) Current Visit: No Status: Chronic Qualifiers: Coronary Disease-Associated Artery/Lesion type: bypass graft Associated angina: without angina Code(s): I25.10 - ATHSCL HEART DISEASE OF [place] CORONARY ARTERY W/O ANG PCTRS (4) COPD (chronic obstructive pulmonary disease) Current Visit: No Status: Chronic Qualifiers: (5) Hypertension Current Visit: No Status: Chronic Qualifiers: Hypertension type: essential hypertension Qualified Code(s): I10 - Essential (primary) hypertension Code(s): I10 - ESSENTIAL (PRIMARY) HYPERTENSION (6) Squamous cell lung cancer Current Visit: Yes Status: Acute Qualifiers: Laterality: left Qualified Code(s): C34.92 - Malignant neoplasm of unspecified part of left bronchus or lung Code(s): C34.90 - MALIGNANT NEOPLASM OF UNSP PART OF UNSP BRONCHUS OR LUNG (7) Bone metastasis Current Visit: Yes Status: Acute Assessment & Plan: T8 T9 compression wedgefracture on MRI of thoracic spine, most likely due to metastasis from lung Code(s): C79.51 - SECONDARY MALIGNANT NEOPLASM OF BONE
[2018-11-12 12:44] VITALS: BP 157/72; PULSE 71
--- NOTE | 2018-11-12 12:47 | XRAY ---
Indication: Lung carcinoma. Comparison: November 10, 2018. PA/lateral chest unchanged again demonstrating diffuse left lung interstitial alveolar opacities, COPD, CIPD, left lung calcified pleural plaquing, a few calcified granulomas, and left costophrenic angle blunting. Heart and mediastinal structures remain within normal limits. No new cardiopulmonary abnormalities.
--- NOTE | 2018-11-12 12:57 | XRAY ---
Indication: Low back pain. Status post fall 2 months ago. T9 compression fracture. History lung cancer. Sagittal and axial MRI lumbar spine performed without contrast using T1 and T2-weighted sequences. Comparison: None MRI thoracic spine reported separately. Lumbar radiograph dated October 08, 2017 documents 5 lumbar vertebral segments. Sagittal MRI images demonstrates normal lumbar alignment. Discs are normal in MRI signal and morphology. Small round L1/L2 vertebral hemangiomas. No acute fracture, subluxation, or abnormal bone marrow signal. Conus medullaris terminates at the thoracolumbar junction. Sagittal images through the T12-L3 levels are unremarkable. Axial images at the L3-L4-L5 levels demonstrates very minimal annular disc bulge minimally effacing the thecal sac and producing minimal bilateral foraminal narrowing. No disc herniation or canal stenosis. Mild bilateral degenerative facet arthropathy. At the L5-S1 level, there is no disc herniation, spinal canal, or foraminal stenosis. Minimal bilateral degenerative facet arthropathy. Impression: 1. Minimal L3-L5 degenerative disc disease as detailed. 2. Incidental L1/L2 vertebral hemangiomas. 3. Remaining MRI lumbar spine without contrast exam is negative.
--- NOTE | 2018-11-12 13:28 | PCM.DS ---
Discharge Summary Date of Admission: 11/10/18 17:17 Admitting Physician: SADIA GROVER Consults: Consults on Case 11/10/18 17:32 Nutritional Consult ROUTINE 11/10/18 17:37 Consult Cardiology ROUTINE Primary Care Provider: SADIA GROVER Allergies Allergies No Known Drug Allergies Allergy (Verified 11/10/18 18:11) Hospital Summary - Hospital Course Hospital Course: Chief Complaint Diagnosis worsening pedal edema and shortness of breath for 3 days Allergies Allergy/AdvReac Type Severity Reaction Status Date / Time No Known Drug Allergies Allergy Verified 11/10/18 18:11 Vital Signs (Last 24 hours) Temp Pulse Resp BP Pulse Ox 11/12/18 12:43 98 F 71 20 157/72 95 11/12/18 08:36 66 95 11/12/18 07:25 98.2 F 67 22 180/84 96 11/12/18 04:10 98.4 F 77 20 160/70 91 L 11/12/18 00:05 98.9 F 76 20 136/64 96 11/12/18 00:00 20 11/11/18 20:14 67 20 94 L 11/11/18 20:05 98.1 F 87 22 194/84 92 L 11/11/18 20:00 20 11/11/18 16:00 98.5 F 61 20 128/72 98 Home Medications Medication Instructions Recorded Confirmed Last Taken Type Methylprednisolone 4 mg [Medrol 4 mg PO DAILY 11/10/18 11/10/18 11/10/18 History 4 mg] Oxycodone HCl/Acetaminophen 1 each PO BID 11/10/18 11/10/18 11/10/18 History [Oxycodone-Acetaminophen 5-325] Current Medications Generic Name Dose Route Start Last Admin Trade Name Freq PRN Reason Stop Dose Admin Albuterol Sulfate 2.5 mg 11/11/18 07:00 11/12/18 07:08 Proventil 2.5 Mg/3 Ml Neb IH 12/11/18 06:59 2.5 mg BID SIMBA Administration Albuterol Sulfate 2.5 mg 11/11/18 06:53 Proventil 2.5 Mg/3 Ml Neb IH 12/11/18 06:52 Q6HPRN PRN SHORTNESS OF BREATH Allopurinol 150 mg 11/11/18 10:00 11/12/18 08:12 Zyloprim 300 Mg PO 12/11/18 09:59 150 mg DAILY SIMBA Administration Bumetanide 1 mg 11/11/18 10:00 11/12/18 08:09 Bumex 1 Mg IV 12/11/18 09:59 1 mg BID DIURETIC SIMBA Administration Dexamethasone Sodium Phosphate 4 mg 11/11/18 15:00 11/12/18 06:05 Decadron 4 Mg Inj IV 12/11/18 14:59 4 mg Q8HT SIMBA Administration Famotidine 20 mg 11/10/18 22:00 11/12/18 08:09 Pepcid 20 Mg PO 12/10/18 21:59 20 mg BID SIMBA Administration Folic Acid 1 mg 11/11/18 10:00 11/12/18 08:09 Folate 1 Mg PO 12/11/18 09:59 1 mg DAILY SIMBA Administration Hydralazine HCl 50 mg 11/10/18 22:00 11/12/18 08:10 Apresoline 25 Mg Tablet PO 12/10/18 21:59 50 mg BID SIMBA Administration Magnesium Oxide 400 mg 11/10/18 22:00 11/12/18 08:12 Mag-Ox 400 PO 12/10/18 21:59 400 mg BID SIMBA Administration Methylprednisolone 4 mg 11/11/18 10:00 11/12/18 08:09 Medrol 4 Mg PO 12/11/18 09:59 4 mg DAILY SIMBA Administration Metoprolol Tartrate 25 mg 11/10/18 22:00 11/12/18 08:09 Lopressor 25mg Tab PO 12/10/18 21:59 25 mg BID SIMBA Administration Morphine Sulfate 4 mg 11/11/18 15:14 11/12/18 11:39 Morphine Sulfate 4 Mg Inj IV 11/16/18 15:13 4 mg Q4H PRN PRN Administration Non-Formulary Drug 1 200 mg 11/11/18 10:00 11/12/18 08:11 Each ( PO 12/11/18 09:59 200 mg Hydroxychloroquine BID SIMBA Administration Sulfate [Plaquenil] 200 Mg) Oxycodone/Acetaminophen 1 tab 11/10/18 22:00 11/12/18 10:25 Percocet Tablet 5/325mg PO 11/15/18 21:59 1 tab BID SIMBA Administration Pantoprazole Sodium 40 mg 11/11/18 10:00 11/12/18 08:09 Protonix 40mg Tablet PO 12/11/18 09:59 40 mg DAILY SIMBA Administration Potassium Chloride 20 meq 11/10/18 22:00 11/12/18 08:09 Klor Con 10 Meq PO 12/10/18 21:59 20 meq BID SIMBA Administration Simvastatin 10 mg 11/10/18 22:00 11/11/18 21:28 Zocor 10mg PO 12/10/18 21:59 10 mg HS SIMBA Administration Discontinued Medications Generic Name Dose Route Start Last Admin Trade Name Freq PRN Reason Stop Dose Admin Albuterol Sulfate 2.5 mg 11/10/18 19:00 11/10/18 21:36 Proventil 2.5 Mg/3 Ml Neb IH 12/10/18 18:59 2.5 mg BID SIMBA Administration Albuterol Sulfate Confirm 11/10/18 21:37 Proventil 2.5 Mg/3 Ml Neb Administered 11/10/18 21:38 Dose 2.5 mg IH .STK-MED ONE Albuterol Sulfate Confirm 11/11/18 05:30 Proventil 2.5 Mg/3 Ml Neb Administered 11/11/18 05:31 Dose 2.5 mg IH .STK-MED ONE Benzonatate 100 mg 11/10/18 17:35 Tessalon Perles 100 Mg PO 12/10/18 17:34 TID PRN PRN COUGH Bumetanide Confirm 11/10/18 18:48 Bumex 1 Mg Administered 11/10/18 18:49 Dose 1 mg .ROUTE .STK-MED ONE Clonazepam 0.5 mg 11/10/18 22:00 Klonopin 0.5 Mg PO 12/10/18 21:59 TID SIMBA Morphine Sulfate 1 mg 11/11/18 17:09 Morphine Sulfate 2 Mg Inj IV 11/11/18 17:10 STAT ONE Intake & Output (Last 24 hours) 11/10/18 11/11/18 11/12/18 11/13/18 11:59 11:59 11:59 11:59 Intake Total 480 1680 480 Output Total 1350 2850 Balance -870 -1170 480 Weight 81.9 kg 82 kg Orders (Last 24 hours) Category Date Time Status CHEST 2 VIEWS (PA AND LAT) Routine Exams 11/12/18 12:28 Completed MRI L-SPINE WITHOUT CONTRAST [MRI] Stat Exams 11/12/18 14:56 Completed MRI T-SPINE WITHOUT CONTRAST [MRI] Stat Exams 11/11/18 14:56 Completed Dexamethasone 4 mg [Decadron 4 MG INJ] Med 11/11/18 15:00 Active 4 mg IV Q8HT Morphine Sulfate 2 mg Inj Med 11/11/18 17:09 Discontinued 1 mg IV STAT ONE Morphine Sulfate 4 mg Inj Med 11/11/18 15:14 Active 4 mg IV Q4H PRN PRN Patient Care Notes (Last 24 hours) 11/11/18 15:01 Nursing Note by Adriana Odom DR HERE TO SEE PT. PT'S NIECE AND CAREGIVER MITESH HERE. NEW ORDERS RECEIVED FOR MEDICATIONS AND RADIOLOGY. Initialized on 11/11/18 15:01 - END OF NOTE - Vitals & Intake/Output Vital Signs: Vital Signs Temperature 98 F 11/12/18 12:43 Pulse Rate 71 11/12/18 12:43 Respiratory Rate 20 11/12/18 12:43 Blood Pressure 157/72 11/12/18 12:43 O2 Sat by Pulse Oximetry 95 11/12/18 12:43 Oxygen-Last Documented O2 Percentage 4 Liters = 36% Intake & Output: Intake & Output 11/10/18 11/11/18 11/12/18 11/13/18 11:59 11:59 11:59 11:59 Intake Total 480 1680 480 Output Total 1350 2850 Balance -870 -1170 480 Weight 81.9 kg 82 kg - Lab Result Diagrams: 11/10/18 17:32 11/10/18 17:32 - Radiology Exams Ordered Rad Exams-Entire Visit: Radiology Procedures Category Date Time Status CHEST 2 VIEWS (PA AND LAT) Routine Exams 11/12/18 12:28 Completed CHEST 2 VIEWS (PA AND LAT) Stat Exams 11/10/18 17:32 Completed ECHO W/2D AND DOPPLER [US] Routine Exams 11/11/18 09:00 Draft MRI L-SPINE WITHOUT CONTRAST [MRI] Stat Exams 11/12/18 14:56 Completed MRI T-SPINE WITHOUT CONTRAST [MRI] Stat Exams 11/11/18 14:56 Completed - Procedures and Test Procedures and Tests throughout Hospitalization: Therapy Orders & Screens 11/10/18 17:32 EKG STAT Comment: Diagnosis: CHF 11/10/18 17:58 RT Screen per Nursing Assess ONCE Comment: Protocol Order Physician Instructions: Greater than 3 points order RT Admission Screen Reason For Exam: Triggered on Admission Diagnosis: worsening pedal edema and shortness of breath for 3 days Diagnosis: worsening pedal edema and shortness of breath for 3 days Pneumonia: No Home O2: Yes Asthma: No CHF: Yes Home CPAP/BIPAP: No Home Nebs/MDI: Yes Total Points: 13 11/10/18 21:35 Oxygen Nasal Cannula 4 lpm Comment: Diagnosis: worsening pedal edema and shortness of breath for 3 days 11/10/18 21:36 Respiratory Therapy Assessment DAILY Comment: Diagnosis: worsening pedal edema and shortness of breath for 3 days 11/10/18 21:39 Peak Expiratory Flow Rate ONCE Comment: Reason For Exam: Diagnosis: worsening pedal edema and shortness of breath for 3 days Discharge Exam General Appearance: no apparent distress, alert Neurologic Exam: alert, oriented x 3, cooperative, normal mood/affect, nml cerebellar function, sensation nml, No motor deficits Skin Exam: normal color, warm, dry Eye Exam: PERRL, EOMI, eyes nml inspection Ears, Nose, Throat Exam: normal ENT inspection, pharynx normal, moist mucous membranes Neck Exam: normal inspection, non-tender, supple, full range of motion Respiratory Exam: normal breath sounds, diminished breath sounds, crackles/rales , rhonchi, No respiratory distress Cardiovascular Exam: regular rate/rhythm, normal heart sounds Gastrointestinal/Abdomen Exam: soft, No tenderness, No mass Extremity Exam: normal inspection, normal range of motion Back Exam: normal inspection, normal range of motion, No CVA tenderness, No vertebral tenderness Male Genitalia Exam: deferred Rectal Exam: deferred Final Diagnosis/Problem List - Final Discharge Diagnosis/Problem (1) CHF (congestive heart failure), NYHA class III Current Visit: Yes Status: Resolved (2) Chronic renal disease, stage 4, severely decreased glomerular filtration rate (GFR) between 15-29 mL/min/1.73 square meter Current Visit: Yes Status: Acute (3) CAD (coronary artery disease) Current Visit: No Status: Chronic Priority: High (4) COPD (chronic obstructive pulmonary disease) Current Visit: No Status: Chronic Priority: Medium (5) Hypertension Current Visit: No Status: Chronic (6) Squamous cell lung cancer Current Visit: Yes Status: Acute (7) Bone metastasis Current Visit: Yes Status: Acute - Discharge Discharge Date: 11/12/18 Disposition: Home, Self-Care Condition: Stable Prescriptions: New Oxycodone/APAP 5 mg/325 mg [Percocet Tablet 5/325Mg] 1 tab PO Q6HPRN PRN #40 tablet MDD 4 tabs PRN Reason: Pain Continue Folic Acid 1 mg PO DAILY Simvastatin [Zocor] 10 mg PO HS Magnesium Oxide 400 mg [Mag-Ox 400] 400 mg PO BID Potassium Chloride 10 Meq Tab* [Klor Con 10 MEQ] 20 meq PO BID PANTOPRAZOLE 40 mg Tablet [Protonix 40MG Tablet] 40 mg PO DAILY Hydralazine HCl 50 mg PO BID Bumetanide [Bumex] 1 mg PO BID Metoprolol Tartrate 25 mg [Lopressor 25MG Tab] 25 mg PO BID Famotidine 20 mg [Pepcid 20 MG] 20 mg PO BID Hydroxychloroquine Sulfate [Plaquenil] 200 mg PO BID Allopurinol 300 mg [Zyloprim 300 mg] 150 mg PO DAILY Albuterol 2.5 mg/3 ml Neb [Proventil 2.5 mg/3 ml Neb] 2.5 mg NEB Q6HPRN PRN PRN Reason: Shortness Of Breath Methylprednisolone 4 mg [Medrol 4 mg] 4 mg PO DAILY Oxycodone HCl/Acetaminophen [Oxycodone-Acetaminophen 5-325] 1 each PO BID Follow up with: SADIA GROVER MD [Primary Care Provider] - 1 Week
== END 2018-11-12 14:00 | disposition home or self-care (01) ==
LOC: ICU 17:17 → MED SURG 11-11 17:39
PROVIDERS: ADMIT General Practice; ATTEND General Practice
DX: I50.9 Heart failure, unspecified (principal); N18.4 Chronic kidney disease, stage 4 (severe); J44.9 Chronic obstructive pulmonary disease, unspecified; C34.90 Malignant neoplasm of unspecified part of unspecified bronchus or lung; C79.51 Secondary malignant neoplasm of bone; I25.10 Atherosclerotic heart disease of native coronary artery without angina pectoris; Z79.899 Other long term (current) drug therapy; I10 Essential (primary) hypertension; I25.2 Old myocardial infarction; M54.6 Pain in thoracic spine
CPT/HCPCS: 36415; 71046; 72146; 72148; 80048; 83880; 84484; 85027; 93005; 93306; 94150; 94640; 94760; G0378; J1100; J2270; J7609; A9270-GY

== ENCOUNTER 2019-03-01 20:33 | Inpatient (IN) | payer MEDICARE ==
[2019-03-01] MEDS ORDERED: PROVENTIL 2.5 MG/3 ML NEB IH ONE ×2 (20:37→20:46)
[2019-03-01] MEDS ORDERED: Sodium Chloride 0.9% 1000 ML 1,000 ML ONE (20:42)
[2019-03-01] MEDS ORDERED: LEVOFLOXACIN 750MG/150ML D5W 750 MG/150 ML BAG IV STA (20:46)
[2019-03-01] MEDS ORDERED: LEVOFLOXACIN 750MG/150ML D5W 750 MG/150 ML BAG IV ONE (21:19)
[2019-03-01 21:25] LABS: A-aADO2 175; ABG HEMOGLOBIN 14.3; ABG SITE LEFT RADIAL; ALLEN TEST OK? YES; ARTERIAL BLOOD GAS FIO2 40 %; ARTERIAL BLOOD GAS PCO2 32 mmHg (35-45); ARTERIAL BLOOD GAS PO2 70 mmHg (75-100); ARTERIAL BLOOD GAS pH 7.48 (7.35-7.45); CARBOXYHEMOGLOBIN 2.7 % THgb (0.0-6.9); HCO3- 23.8 (22-28); Lactic Acid 0.8 (0.4-2.0); Methhemoglobin 1.3 % (1.4-1.5); paO2 pAO1 0.29
--- NOTE | 2019-03-01 21:26 | ERPHSYRPT ---
- History of Present Illness Time Seen by Provider: 03/01/19 20:35 Source: patient Exam Limitations: clinical condition Patient Subjective Stated Complaint: SOB Triage Nursing Assessment: Patient brought back to ED via w/c and transferred to bed with assist of 1. Patient SOB at this time. O2 82% on room air. Patient assisted to bed and non-rebreather placed per RT. Patient's skin hot and dry. Patient's niece states her aunt called her to check on patient. Patient was SOB at that time. Patient started mid afternoon with SOB. Resp 36. Lungs noted to be diminished throughout and coarse at the lower lobes. Patient denies pain or discomfort. Physician History: PATIENT WITH A HISTORY OF LUNG SQUAMOUS CELL CARCINOMA, CHF AND COPD COMPLAINS OF A NONPRODUCTIVE COUGH, DIFFICULT BREATHING AND SHORTNESS OF BREATH SINCE LAST NIGHT. HAS MARKED EXERTIONAL DYSPNEA, DENIES CHEST PAIN, FEVER OR CHILLS. HAS RECEIVED A COURSE OF 32 RADIATION THERAPY TREATMENTS 2 WEEKS AGO. Timing/Duration: yesterday Activities at Onset: none Severity of Dyspnea-Max: severe Severity of Dyspnea-Current: severe Possible Cause: occasional episodes Modifying Factors: Improves With: activity, coughing Associated Symptoms: constant, tightness Allergies/Adverse Reactions: No Known Drug Allergies Allergy (Verified 03/01/19 21:07) Home Medications: Folic Acid 1 mg PO DAILY 01/28/15 [History] Simvastatin [Zocor] 10 mg PO HS 01/28/15 [History] Magnesium Oxide 400 mg [Mag-Ox 400] 400 mg PO BID 04/03/15 [History] Potassium Chloride 10 Meq Tab* [Klor Con 10 MEQ] 20 meq PO BID 05/08/15 [ History] Hydralazine HCl 50 mg PO BID 02/26/16 [History] PANTOPRAZOLE 40 mg Tablet [Protonix 40MG Tablet] 40 mg PO DAILY 02/26/16 [ History] Bumetanide [Bumex] 2 mg PO BID 10/29/16 [History] Famotidine 20 mg [Pepcid 20 MG] 20 mg PO BID 02/03/17 [History] Metoprolol Tartrate 25 mg [Lopressor 25MG Tab] 25 mg PO BID 02/03/17 [ History] Albuterol 2.5 mg/3 ml Neb [Proventil 2.5 mg/3 ml Neb] 2.5 mg NEB Q6HPRN PRN 11/26/17 [History] Methylprednisolone 4 mg [Medrol 4 mg] 4 mg PO DAILY 11/10/18 [History] Hx Tetanus, Diphtheria Vaccination/Date Given: Yes Hx Influenza Vaccination/Date Given: Yes Hx Pneumococcal Vaccination/Date Given: Yes Immunizations Up to Date: Yes - Review of Systems Constitutional: No Symptoms Eyes: No Symptoms Ears, Nose, & Throat: No Symptoms Respiratory: Dyspnea, Dyspnea on Exertion (GARCIA), Wheezing Cardiac: No Symptoms Abdominal/Gastrointestinal: No Symptoms Genitourinary Symptoms: No Symptoms Musculoskeletal: No Symptoms - Past Medical History Pertinent Past Medical History: Yes Neurological History: TIA ENT History: Cataracts Cardiac History: Congestive Heart Failure, Coronary Artery Disease, High Cholesterol, Hypertension, Myocardial Infarction (RI) Respiratory History: CHF, COPD, Lung Cancer, Pneumonia Endocrine Medical History: No Pertinent History Musculoskeletal History: No Pertinent History GI Medical History: GI Bleed, Other History: Other Psycho-Social History: No Pertinent History Male Reproductive Disorders: No Pertinent History Other Medical History: some kidney failure, anemia with blood transfusion, Lung cancer left upper lobe - Past Surgical History Past Surgical History: Yes Neuro Surgical History: No Pertinent History Cardiac: Cardiac Catheterization, Cardiac Stent Respiratory: No Pertinent History Gastrointestinal: Appendectomy, Hernia Repair Genitourinary: No Pertinent History Musculoskeletal: No Pertinent History Male Surgical History: No Pertinent History Other Surgical History: EGD AND COLONOSCOPY LAST DONE APRIL 2016 Received many blood transfusions during that time. - Social History Smoking Status: Former smoker How long have you smoked: 50yrs Exposure to second hand smoke: Yes Drug Use: none Patient Lives Alone: No - Nursing Vital Signs Nursing Vital Signs: Initial Vital Signs Pulse Rate 94 H 03/01/19 20:33 Respiratory Rate 36 H 03/01/19 20:33 Blood Pressure 209/118 03/01/19 20:33 O2 Sat by Pulse Oximetry 82 L 03/01/19 20:33 Pain Scale Pain Intensity 0 - Physical Exam General Appearance: severe distress, alert, other (ARRIVED TO EMERGENCY WITH MARKED TACHYPNEA, LABORED BREATHING, ACCESSORY MUSCLE USE, NO AUDIBLE WHEEZES) Eye Exam: PERRL/EOMI Neck Exam: normal inspection, supple Respiratory Exam: diminished breath sounds, wheezing Cardiovascular/Chest Exam: normal heart sounds, regular rate/rhythm Abdominal/Gastrointestinal Exam: soft, No tenderness, No distention, No mass Extremity Exam: non-tender, normal range of motion, normal inspection, no calf tenderness, no pedal edema Peripheral Pulses Exam: carotid (R): 2+, carotid (L): 2+, femoral (R): 2+, femoral (L): 2+, dorsalis-pedis (R): 2+, dorsalis-pedis (L): 2+ Neurologic Exam: alert, oriented x 3, cooperative, football scout II-XII nml as tested, sensation nml, No motor deficits Skin Exam: normal color, warm, No dry SpO2 Interpretation: hypoxic SpO2: 82 O2 Delivery: Room Air - Course EKG Interpreted by Me: RATE, Sinus Rhythm, NORMAL AXIS, Non-specific ST Changes - CT Exams Chest CT Interpretation: Tele-radiologist Report (DIFFUSE BILATERAL PATCHY GROUND GLASS AND CONSOLIDATIVE AIRSPACE OPACITIES. MOST PRONOUNCED IN THE RIGHT MIDDLE LOBE AND LOWER LOBES) Ordered Tests: Active Orders 24 hr Category Date Time Status Meter Maintenance Person STAT Care 03/01/19 20:50 Active EKG-ER Only STAT Care 03/01/19 20:46 Active Oxygen-ED Only Nasal Cannula 3 lpm Care 03/01/19 20:46 Active CHEST 1 VIEW (PORTABLE) Stat Exams 03/01/19 20:50 Taken CHEST WITH CONTRAST [CT] Stat Exams 03/01/19 23:00 Taken ACETAMINOPHEN Stat Lab 03/01/19 21:17 Completed ARTERIAL BLOOD GASES Stat Lab 03/01/19 21:20 Completed BLOOD CULTURE Stat Lab 03/01/19 22:45 Received CBC W DIFF Stat Lab 03/01/19 21:17 Completed CMP Stat Lab 03/01/19 21:17 Completed CULTURE,URINE Stat Lab 03/01/19 21:25 Received D-DIMER QUANTITATION Stat Lab 03/01/19 21:17 Completed Lactic Acid Stat Lab 03/01/19 21:20 Completed MAGNESIUM Stat Lab 03/01/19 21:17 Completed NT PRO BNP Stat Lab 03/01/19 21:17 Completed PROTIME WITH INR Stat Lab 03/01/19 21:17 Completed TROPONIN Q3H Lab 03/01/19 21:17 Completed TROPONIN Q3H Lab 03/02/19 00:23 Received TROPONIN Q3H Lab 03/02/19 03:00 Ordered TROPONIN Q3H Lab 03/02/19 06:00 Ordered TROPONIN Q3H Lab 03/02/19 09:00 Ordered UA W/RFX UR CULTURE Stat Lab 03/01/19 21:25 Completed Respiratory Therapy Assessment DAILY RT 03/02/19 00:28 Active Transfer Order Routine Transfer 03/02/19 Ordered Medication Summary Generic Name Dose Route Start Last Admin Trade Name Freq PRN Reason Stop Dose Admin Sodium Chloride 1,000 mls @ 100 mls/hr 03/01/19 21:00 03/01/19 21:36 Sodium Chloride 0.9% 1000 Ml IV 03/31/19 20:59 100 mls/hr .Q10H SIMBA Administration Discontinued Medications Generic Name Dose Route Start Last Admin Trade Name Freq PRN Reason Stop Dose Admin Acetaminophen Confirm 03/01/19 21:28 Tylenol 325 Mg Administered 03/01/19 21:29 Dose 650 mg .ROUTE .STK-MED ONE Acetaminophen 650 mg 03/01/19 21:34 03/01/19 21:36 Tylenol 325 Mg PO 03/01/19 21:35 650 mg STAT STA Administration Albuterol Sulfate Confirm 03/01/19 20:37 Proventil 2.5 Mg/3 Ml Neb Administered 03/01/19 20:38 Dose 10 mg IH .STK-MED ONE Albuterol Sulfate 10 mg 03/01/19 20:46 03/01/19 20:45 Proventil 2.5 Mg/3 Ml Neb IH 03/01/19 20:47 10 mg STAT ONE Administration Albuterol/Ipratropium 3 ml 03/02/19 00:15 03/02/19 00:25 Duoneb 0.5-3 Mg/3 Ml Neb IH 03/02/19 00:16 3 ml STAT ONE Administration Albuterol/Ipratropium Confirm 03/02/19 00:24 Duoneb 0.5-3 Mg/3 Ml Neb Administered 03/02/19 00:25 Dose 3 ml IH .STK-MED ONE Enoxaparin Sodium 40 mg 03/01/19 22:51 03/01/19 22:56 Enoxaparin Sodium SQ 03/01/19 22:52 40 mg STAT ONE Administration Enoxaparin Sodium Confirm 03/01/19 22:52 Enoxaparin Sodium Administered 03/01/19 22:53 Dose 80 mg SQ .STK-MED ONE Sodium Chloride Confirm 03/01/19 20:42 Sodium Chloride 0.9% 1000 Ml Administered 03/01/19 20:43 Dose 1,000 mls @ ud .ROUTE .STK-MED ONE Levofloxacin/Dextrose 750 mg in 150 mls @ 100 mls/hr 03/01/19 20:46 03/01/19 21:36 Levofloxacin 750mg/150ml D5w IV 03/01/19 22:15 100 ml/hr STAT STA 100 mls/hr Administration Levofloxacin/Dextrose Confirm 03/01/19 21:19 Levofloxacin 750mg/150ml D5w Administered 03/01/19 21:20 Dose 750 mg in 150 mls @ ud IV .STK-MED ONE Ibuprofen 600 mg 03/01/19 22:35 03/01/19 22:36 Motrin 600 Mg PO 03/01/19 22:36 600 mg STAT ONE Administration Ibuprofen Confirm 03/01/19 22:34 Motrin 600 Mg Administered 03/01/19 22:35 Dose 600 mg .ROUTE .STK-MED ONE Methylprednisolone Sodium Succinate 125 mg 03/01/19 22:46 03/01/19 22:49 Solu-Medrol 125 Mg IV 03/01/19 22:47 125 mg STAT ONE Administration Methylprednisolone Sodium Succinate Confirm 03/01/19 22:49 Solu-Medrol 125 Mg Administered 03/01/19 22:50 Dose 125 mg .ROUTE .STK-MED ONE Lab/Rad Data: Laboratory Result Diagrams 03/01/19 21:17 03/01/19 21:17 Laboratory Results 03/01/19 03/01/19 03/01/19 Range/Units 21:25 21:20 21:17 WBC (4.0-10.5) K/mm3 RBC (4.1-5.6) M/mm3 Hgb (12.5-18.0) gm/dl Hct (42-50) % MCV (78-100) fl MCH (26-32) pg MCHC (32-36) g/dl RDW (11.5-14.0) % Plt Count (150-450) K/mm3 MPV (6-9.5) fl Gran % (36.0-66.0) % Eos # (Auto) (0-0.5) Absolute Lymphs (auto) (1.0-4.6) Absolute Monos (auto) (0.0-1.3) Lymphocytes % (24.0-44.0) % Monocytes % (0.0-12.0) % Eosinophils % (0.00-5.0) % Basophils % (0.0-0.4) % Absolute Granulocytes (1.4-6.9) Basophils # (0-0.4) PT (8.83-12.87) SECONDS INR (0.8-3.0) D-Dimer Puncture Site LEFT RADIAL pCO2 32 L (35-45) mmHg pO2 70 L (75-100) mmHg Base Excess 1.0 (-2.0-2.0) O2 Saturation 93.0 L (94-100) g/dF ABG pH 7.48 H (7.35-7.45) ABG HCO3 23.8 (22-28) ABG O2 Sat (Measured) 97.0 (95-100) % Sunday Test YES A-a Gradient 175 a/A Ratio 0.29 Hemoglobin 14.3 Carboxyhemoglobin 2.7 (0.0-6.9) % THgb Methemoglobin 1.3 L (1.4-1.5) % Temperature 37.0 C POC O2 Flow Rate 40 % Sodium (137-145) mmol/L Potassium 4.0 (3.5-5.1) mmol/L Chloride (98-107) mmol/L Carbon Dioxide (22-30) mmol/L Anion Gap (5-15) MEQ/L BUN (9-20) mg/dL Creatinine (0.66-1.25) mg/dL Estimated GFR ML/MIN Glucose (74-106) mg/dL Lactic Acid 0.8 (0.4-2.0) Calcium (8.4-10.2) mg/dL Magnesium (1.6-2.3) mg/dL Total Bilirubin (0.2-1.3) mg/dL AST (17-59) U/L ALT (0-50) U/L Alkaline Phosphatase (38-126) U/L Troponin I (0.000-0.034) ng/mL NT-Pro-B Natriuret Pep (0-1800) pg/mL Serum Total Protein (6.3-8.2) g/dL Albumin (3.5-5.0) g/dL Urine Color YELLOW (YELLOW) Urine Appearance CLEAR (CLEAR) Urine pH 5.0 (5-6) Ur Specific Homer 1.016 (1.005-1.025) Urine Protein 30 (Negative) Urine Ketones NEGATIVE (NEGATIVE) Urine Blood SMALL (0-5) Marcelino/ul Urine Nitrite NEGATIVE (NEGATIVE) Urine Bilirubin NEGATIVE (NEGATIVE) Urine Urobilinogen NEGATIVE (0-1) mg/dL Ur Leukocyte Esterase NEGATIVE (NEGATIVE) Urine WBC (Auto) 0-2 (0-5) /HPF Urine RBC (Auto) 6-10 (0-2) /HPF U Epithel Cells (Auto) RARE (FEW) /HPF Urine Bacteria (Auto) RARE (NEGATIVE) /HPF Other Casts (Auto) 5-10 (NEGATIVE) /LPF Urine Mucus (Auto) SLIGHT (NEGATIVE) /HPF Urine Culture Reflexed NO (NO) Urine Glucose NEGATIVE (NEGATIVE) mg/dL Acetaminophen < 10 L (10-30) ug/ml Influenza Type A Ag (NEGATIVE) Influenza Type B Ag (NEGATIVE) RSV (PCR) (Negative) Slides for Path Review 03/01/19 03/01/19 03/01/19 Range/Units 21:17 21:17 21:17 WBC (4.0-10.5) K/mm3 RBC (4.1-5.6) M/mm3 Hgb (12.5-18.0) gm/dl Hct (42-50) % MCV (78-100) fl MCH (26-32) pg MCHC (32-36) g/dl RDW (11.5-14.0) % Plt Count (150-450) K/mm3 MPV (6-9.5) fl Gran % (36.0-66.0) % Eos # (Auto) (0-0.5) Absolute Lymphs (auto) (1.0-4.6) Absolute Monos (auto) (0.0-1.3) Lymphocytes % (24.0-44.0) % Monocytes % (0.0-12.0) % Eosinophils % (0.00-5.0) % Basophils % (0.0-0.4) % Absolute Granulocytes (1.4-6.9) Basophils # (0-0.4) PT 12.1 (8.83-12.87) SECONDS INR 1.04 (0.8-3.0) D-Dimer COMPLIANCE MONITOR Puncture Site pCO2 (35-45) mmHg pO2 (75-100) mmHg Base Excess (-2.0-2.0) O2 Saturation (94-100) g/dF ABG pH (7.35-7.45) ABG HCO3 (22-28) ABG O2 Sat (Measured) (95-100) % Sunday Test A-a Gradient a/A Ratio Hemoglobin Carboxyhemoglobin (0.0-6.9) % THgb Methemoglobin (1.4-1.5) % Temperature C POC O2 Flow Rate % Sodium 141 (137-145) mmol/L Potassium 4.0 (3.5-5.1) mmol/L Chloride 107 (98-107) mmol/L Carbon Dioxide 25 (22-30) mmol/L Anion Gap 13.2 (5-15) MEQ/L BUN 20 (9-20) mg/dL Creatinine 1.30 H (0.66-1.25) mg/dL Estimated GFR 56.9 ML/MIN Glucose 93 (74-106) mg/dL Lactic Acid (0.4-2.0) Calcium 9.0 (8.4-10.2) mg/dL Magnesium 1.8 (1.6-2.3) mg/dL Total Bilirubin 0.40 (0.2-1.3) mg/dL AST 26 (17-59) U/L ALT 36 (0-50) U/L Alkaline Phosphatase 108 (38-126) U/L Troponin I < 0.012 (0.000-0.034) ng/mL NT-Pro-B Natriuret Pep 988 (0-1800) pg/mL Serum Total Protein 7.3 (6.3-8.2) g/dL Albumin 3.7 (3.5-5.0) g/dL Urine Color (YELLOW) Urine Appearance (CLEAR) Urine pH (5-6) Ur Specific Homer (1.005-1.025) Urine Protein (Negative) Urine Ketones (NEGATIVE) Urine Blood (0-5) Marcelino/ul Urine Nitrite (NEGATIVE) Urine Bilirubin (NEGATIVE) Urine Urobilinogen (0-1) mg/dL Ur Leukocyte Esterase (NEGATIVE) Urine WBC (Auto) (0-5) /HPF Urine RBC (Auto) (0-2) /HPF U Epithel Cells (Auto) (FEW) /HPF Urine Bacteria (Auto) (NEGATIVE) /HPF Other Casts (Auto) (NEGATIVE) /LPF Urine Mucus (Auto) (NEGATIVE) /HPF Urine Culture Reflexed (NO) Urine Glucose (NEGATIVE) mg/dL Acetaminophen (10-30) ug/ml Influenza Type A Ag (NEGATIVE) Influenza Type B Ag (NEGATIVE) RSV (PCR) (Negative) Slides for Path Review 03/01/19 03/01/19 Range/Units 21:17 21:14 WBC 10.9 H (4.0-10.5) K/mm3 RBC 4.52 (4.1-5.6) M/mm3 Hgb 13.6 (12.5-18.0) gm/dl Hct 41.1 L (42-50) % MCV 90.9 (78-100) fl MCH 30.1 (26-32) pg MCHC 33.1 (32-36) g/dl RDW 15.7 H (11.5-14.0) % Plt Count 187 (150-450) K/mm3 MPV 9.2 (6-9.5) fl Gran % 87.8 H (36.0-66.0) % Eos # (Auto) 0.06 (0-0.5) Absolute Lymphs (auto) 0.54 L (1.0-4.6) Absolute Monos (auto) 0.65 (0.0-1.3) Lymphocytes % 5.0 L (24.0-44.0) % Monocytes % 6.0 (0.0-12.0) % Eosinophils % 0.6 (0.00-5.0) % Basophils % 0.6 (0.0-0.4) % Absolute Granulocytes 9.59 H (1.4-6.9) Basophils # 0.06 (0-0.4) PT (8.83-12.87) SECONDS INR (0.8-3.0) D-Dimer Puncture Site pCO2 (35-45) mmHg pO2 (75-100) mmHg Base Excess (-2.0-2.0) O2 Saturation (94-100) g/dF ABG pH (7.35-7.45) ABG HCO3 (22-28) ABG O2 Sat (Measured) (95-100) % Sunday Test A-a Gradient a/A Ratio Hemoglobin Carboxyhemoglobin (0.0-6.9) % THgb Methemoglobin (1.4-1.5) % Temperature C POC O2 Flow Rate % Sodium (137-145) mmol/L Potassium (3.5-5.1) mmol/L Chloride (98-107) mmol/L Carbon Dioxide (22-30) mmol/L Anion Gap (5-15) MEQ/L BUN (9-20) mg/dL Creatinine (0.66-1.25) mg/dL Estimated GFR ML/MIN Glucose (74-106) mg/dL Lactic Acid (0.4-2.0) Calcium (8.4-10.2) mg/dL Magnesium (1.6-2.3) mg/dL Total Bilirubin (0.2-1.3) mg/dL AST (17-59) U/L ALT (0-50) U/L Alkaline Phosphatase (38-126) U/L Troponin I (0.000-0.034) ng/mL NT-Pro-B Natriuret Pep (0-1800) pg/mL Serum Total Protein (6.3-8.2) g/dL Albumin (3.5-5.0) g/dL Urine Color (YELLOW) Urine Appearance (CLEAR) Urine pH (5-6) Ur Specific Homer (1.005-1.025) Urine Protein (Negative) Urine Ketones (NEGATIVE) Urine Blood (0-5) Marcelino/ul Urine Nitrite (NEGATIVE) Urine Bilirubin (NEGATIVE) Urine Urobilinogen (0-1) mg/dL Ur Leukocyte Esterase (NEGATIVE) Urine WBC (Auto) (0-5) /HPF Urine RBC (Auto) (0-2) /HPF U Epithel Cells (Auto) (FEW) /HPF Urine Bacteria (Auto) (NEGATIVE) /HPF Other Casts (Auto) (NEGATIVE) /LPF Urine Mucus (Auto) (NEGATIVE) /HPF Urine Culture Reflexed (NO) Urine Glucose (NEGATIVE) mg/dL Acetaminophen (10-30) ug/ml Influenza Type A Ag NEGATIVE (NEGATIVE) Influenza Type B Ag NEGATIVE (NEGATIVE) RSV (PCR) NEGATIVE (Negative) Slides for Path Review YES - Progress Progress: improved Air Movement: good Progress Note: 03/01/19 22:56 RECEIVED A AEROSOL TREATMENT ALBUTEROL 10MG OVER 1 HOURS, TACHYPNEA, TACHYCARDIA AND HYPERTENSION IMPROVED, AFTER 2 SETS OF BLOOD CULTURES LEVAQUIN 750MG IVPB GIVEN, SOLUMEDROL 125MG IV, LACTIC ACID 1.5 Blood Culture(s) Obtained: Yes Antibiotics given: Yes Discussed with : Wil (DISCUSSED WITH DR GROVER AT 2120 FOR ADMISSION) - Departure Departure Disposition: In-patient Admission Clinical Impression: PNEUMONIA, ACUTE EXACERBATION COPD, URINARY TRACT INFECTION Condition: Stable Critical Care Time: No Referrals: SADIA GROVER MD [Primary Care Provider] -
[2019-03-01] MEDS ORDERED: TYLENOL 325 MG ONE (21:28)
[2019-03-01] MEDS ORDERED: TYLENOL 325 MG PO STA (21:34)
[2019-03-01] MEDS: Sodium Chloride 0.9% 1000 ML 1,000 ML IV SCH (21:36)
[2019-03-01 21:44] LABS: BASOPHIL % 0.6 % (0.0-0.4); Basophil (Absolute #) 0.06 (0-0.4); Eosinophil % 0.6 % (0.00-5.0); Eosinophil (Absolute #) 0.06 (0-0.5); Granulocyte Absolute (ANC) 9.59 (1.4-6.9); Granulocytes % 87.8 % (36.0-66.0); Hematocrit 41.1 % (42-50); Hemoglobin 13.6 gm/dl (12.5-18.0); Lymphocyte (Absolute #) 0.54 (1.0-4.6); Mean Cell Volume 90.9 fl (78-100); Mean Corpuscular Hemoglobin 30.1 pg (26-32); Mean Corpuscular Hgb Concent. 33.1 g/dl (32-36); Mean Platelet Volume 9.2 fl (6-9.5); Monocyte (Absolute #) 0.65 (0.0-1.3); Platelet Count 187 K/mm3 (150-450); Red Blood Count 4.52 M/mm3 (4.1-5.6); Red Cell Distribution Width 15.7 % (11.5-14.0); White Blood Count 10.9 K/mm3 (4.0-10.5)
[2019-03-01 21:50] LABS: INR 1.04 (0.8-3.0); PROTIME 12.1 SECONDS (8.83-12.87)
[2019-03-01 22:04] LABS: ALBUMIN 3.7 g/dL (3.5-5.0); ANION GAP 13.2 MEQ/L (5-15); BILIRUBIN,TOTAL 0.4 mg/dL (0.2-1.3); Creatinine 1 1.3 mg/dL (0.66-1.25); MAGNESIUM 1.8 mg/dL (1.6-2.3); Total Protein 7.3 g/dL (6.3-8.2)
[2019-03-01 22:33] LABS: Appearance CLEAR (CLEAR); Bacteria RARE /HPF (NEGATIVE); Bilirubin NEGATIVE (NEGATIVE); Blood SMALL Ery/ul (0-5); Epithelial Cells RARE /HPF (FEW); Glucose NEGATIVE (NEGATIVE); Ketones NEGATIVE (NEGATIVE); Leukocyte Esterase NEGATIVE (NEGATIVE); Mucus SLIGHT /HPF (NEGATIVE); Nitrite NEGATIVE (NEGATIVE); Protein,Urine Dip 30 (Negative); Specific Gravity 1.016 (1.005-1.025); Urobilinogen NEGATIVE mg/dL (0-1); WBC 0-2 /HPF (0-5)
[2019-03-01] MEDS ORDERED: MOTRIN 600 MG ONE (22:34)
[2019-03-01] MEDS ORDERED: MOTRIN 600 MG PO ONE (22:35)
[2019-03-01] MEDS ORDERED: solu-MEDROL 125 MG IV ONE (22:46)
[2019-03-01] MEDS ORDERED: solu-MEDROL 125 MG ONE (22:49)
[2019-03-01 22:50] LABS: INFLUENZA A NEGATIVE (NEGATIVE); INFLUENZA B NEGATIVE (NEGATIVE); RESPIRATORY SYNCTIAL VIRUS NEGATIVE (Negative)
[2019-03-01] MEDS ORDERED: ENOXAPARIN SODIUM SQ ONE ×2 (22:51→22:52)
[2019-03-02] MEDS ORDERED: DUONEB 0.5-3 MG/3 ml Neb IH ONE ×2 (00:15→00:24)
[2019-03-02 00:28] LABS: Slide Review 1 YES
[2019-03-02] MEDS ORDERED: TYLENOL 325 MG PO PRN (01:40)
[2019-03-02] MEDS ORDERED: Xopenex 1.25 MG/0.5 ML UD NEBULE IH PRN (01:40)
[2019-03-02] MEDS ORDERED: solu-MEDROL 40 MG IV SCH (01:40)
[2019-03-02] MEDS: DUONEB 0.5-3 MG/3 ml Neb IH SCH ×6 (03:23→23:07)
[2019-03-02 06:07] LABS: BASOPHIL % 0.1 % (0.0-0.4); Basophil (Absolute #) 0.02 (0-0.4); Eosinophil % 0.1 % (0.00-5.0); Eosinophil (Absolute #) 0.01 (0-0.5); Granulocytes % 95.4 % (36.0-66.0); Hematocrit 36.6 % (42-50); Hemoglobin 11.8 gm/dl (12.5-18.0); Lymphocyte (Absolute #) 0.12 (1.0-4.6); Lymphocytes % 0.9 % (24.0-44.0); Mean Cell Volume 92.4 fl (78-100); Mean Corpuscular Hgb Concent. 32.2 g/dl (32-36); Mean Platelet Volume 9.1 fl (6-9.5); Monocyte (Absolute #) 0.48 (0.0-1.3); Monocytes % 3.5 % (0.0-12.0); Platelet Count 154 K/mm3 (150-450); Red Blood Count 3.96 M/mm3 (4.1-5.6); Red Cell Distribution Width 15.5 % (11.5-14.0); White Blood Count 13.7 K/mm3 (4.0-10.5)
[2019-03-02 06:27] LABS: Mean Corpuscular Hemoglobin 29.7 pg (26-32)
[2019-03-02 06:32] LABS: ANION GAP 13.1 MEQ/L (5-15); Calcium 8.3 mg/dL (8.4-10.2); Creatinine 1 1.44 mg/dL (0.66-1.25); Potassium 4.1 mmol/L (3.5-5.1)
[2019-03-02] MEDS: solu-MEDROL 40 MG IV SCH ×3 (08:18→23:45)
--- NOTE | 2019-03-02 09:10 | XRAY ---
Indication: Short of breath. Elevated d-dimer. Multiple contiguous axial images obtained through the chest using 100 cc Isovue 370 contrast and PE protocol. Comparison: CT high-resolution chest exam September 25, 2018. There is good opacification of the pulmonary arteries to include the lobar and segmental branches. No filling defect or pulmonary embolus. Heart remains borderline enlarged. Aorta remains mildly arteriosclerotic without aneurysm/dissection. Again a few tiny mediastinal lymph nodes. New 1.2 x 2.3 cm subcarinal node. Stable right hilar calcified nodes. Examination of the lung parenchyma again demonstrates extensive pulmonary emphysema, scattered fibrosis/scarring, and left hemithorax calcified pleural plaquing. New airspace opacities in the right middle and both lower lobes with patchy areas of consolidation. No effusion. Bony thorax demonstrates interval T8/T9 kyphoplasty. Limited upper abdomen including adrenal glands unremarkable. Impression: 1. Negative pulmonary embolus. 2. New bilateral airspace disease with multifocal areas of consolidation. New prominent subcarinal lymph node presumed reactive. 3. Stable borderline cardiomegaly, pulmonary emphysema, fibrosis/scarring, left hemithorax calcified pleural plaquing, and evidence for old granulomatous disease. Comment: Preliminary interpretation was made by [facility]. No discrepancy. CT DI 13.33
--- NOTE | 2019-03-02 09:12 | XRAY ---
Indication: Short of breath. Comparison: November 12, 2018. Portable chest demonstrates new bibasilar airspace disease. Elsewhere stable COPD, fibrosis/scarring, left lung calcified pleural plaquing with left costophrenic angle blunting, and calcified granulomas. Heart is not enlarged. Bony thorax again demonstrates osteopenia and degenerative changes with interval T8/T9 kyphoplasty. Impression: New bibasilar airspace disease and T8/T9 kyphoplasty. Remaining chest unchanged again with chronic features.
[2019-03-02 09:16] LABS: Slide Review 1 YES
--- NOTE | 2019-03-02 09:19 | PCM.HP ---
History of Present Illness - Chief Complaint Chief Complaint: fever with chills for 2 days History of Present Illness: is a 78 year old male.came to [facility] with c/o fever and chills - Review of Systems Constitutional: No Fever, No Chills Eyes: No Symptoms Ears, Nose, & Throat: No Symptoms Respiratory: No Cough, No Short Of Breath Cardiac: No Chest Pain, No Edema, No Syncope Abdominal/Gastrointestinal: No Abdominal Pain, No Nausea, No Vomiting, No Diarrhea Genitourinary Symptoms: No Dysuria Musculoskeletal: No Back Pain, No Neck Pain Skin: No Rash Neurological: No Dizziness, No Focal Weakness, No Sensory Changes Psychological: No Symptoms Endocrine: No Symptoms Hematologic/Lymphatic: No Symptoms Immunological/Allergic: No Symptoms Medications & Allergies Home Medications: Home Medication List Folic Acid 1 mg PO DAILY 01/28/15 [History Confirmed 03/01/19] Simvastatin [Zocor] 10 mg PO HS 01/28/15 [History Confirmed 03/01/19] Magnesium Oxide 400 mg [Mag-Ox 400] 400 mg PO BID 04/03/15 [History Confirmed 03/01/19] Potassium Chloride 10 Meq Tab* [Klor Con 10 MEQ] 20 meq PO BID 05/08/15 [ History Confirmed 03/01/19] Hydralazine HCl 50 mg PO BID 02/26/16 [History Confirmed 03/01/19] PANTOPRAZOLE 40 mg Tablet [Protonix 40MG Tablet] 40 mg PO DAILY 02/26/16 [ History Confirmed 03/01/19] Bumetanide [Bumex] 2 mg PO BID 10/29/16 [History Confirmed 03/01/19] Famotidine 20 mg [Pepcid 20 MG] 20 mg PO BID 02/03/17 [History Confirmed 03/01/19] Metoprolol Tartrate 25 mg [Lopressor 25MG Tab] 25 mg PO BID 02/03/17 [ History Confirmed 03/02/19] Albuterol 2.5 mg/3 ml Neb [Proventil 2.5 mg/3 ml Neb] 2.5 mg NEB Q6HPRN PRN 11/26/17 [History Confirmed 03/01/19] Methylprednisolone 4 mg [Medrol 4 mg] 4 mg PO DAILY 11/10/18 [History Confirmed 03/01/19] Allergies/Adverse Reactions: Allergies Allergy/AdvReac Type Severity Reaction Status Date / Time No Known Drug Allergies Allergy Verified 03/01/19 21:07 - Past Medical History Past Medical History: Yes Neurological History: TIA ENT History: Cataracts Cardiac History: Congestive Heart Failure, Coronary Artery Disease, High Cholesterol, Hypertension, Myocardial Infarction (CT) Respiratory History: CHF, COPD, Lung Cancer, Pneumonia Endocrine Medical History: No Pertinent History Musculoskelatal History: No Pertinent History GI Medical History: GI Bleed, Other History: Other Pyscho-Social History: No Pertinent History Male Reproductive Disorders: No Pertinent History Comment: some kidney failure, anemia with blood transfusion, Lung cancer left upper lobe - Past Surgical History Past Surgical History: Yes Neuro Surgical History: No Pertinent History Cardiac History: Cardiac Catheterization, Cardiac Stent Respiratory Surgery: No Pertinent History GI Surgical History: Appendectomy, Hernia Repair Genitourinary Surgical Hx: No Pertinent History Musculskeletal Surgical Hx: No Pertinent History Male Surgical History: No Pertinent History Other Surgical History: EGD AND COLONOSCOPY LAST DONE APRIL 2016 Received many blood transfusions during that time. - Social History Smoking Status: Former smoker How long have you smoked: 5 yrs ago Exposure to second hand smoke: Yes (not very often) Alcohol: None Drug Use: none - Physical Exam Vital Signs: Vital Signs - 24 hr Temp Pulse Resp BP Pulse Ox 03/02/19 08:00 98.1 F 77 18 160/69 99 03/02/19 06:58 79 23 98 03/02/19 04:00 98.8 F 79 24 146/62 98 03/02/19 03:58 77 20 97 03/02/19 01:45 97.6 F 82 28 H 105/94 96 03/02/19 01:18 82 L 03/02/19 01:09 100.4 F 84 23 165/65 96 03/02/19 00:28 82 17 96 03/02/19 00:20 101.1 F 79 24 152/62 94 L 03/01/19 22:05 95 H 24 138/68 94 L 03/01/19 21:27 103.3 F 86 23 175/70 93 L 03/01/19 20:33 94 H 36 H 209/118 82 L Oxygen-Last 24 hours O2 Percentage 2 Liters = 28% O2 Percentage 3 Liters = 32% O2 Percentage 3 Liters = 32% O2 Percentage 3 Liters = 32% O2 Percentage 3 Liters = 32% O2 Percentage 3 Liters = 32% O2 Percentage 100% General Appearance: no apparent distress, alert Neurologic Exam: alert, oriented x 3, cooperative, normal mood/affect, nml cerebellar function, nml station & gait, sensation nml, No motor deficits Eye Exam: PERRL/EOMI, eyes nml inspection Ears, Nose, Throat Exam: normal ENT inspection, TMs normal, pharynx normal, moist mucous membranes Neck Exam: normal inspection, non-tender, supple, full range of motion Respiratory Exam: normal breath sounds, lungs clear, No respiratory distress Cardiovascular Exam: regular rate/rhythm, normal heart sounds, normal peripheral pulses Gastrointestinal/Abdomen Exam: soft, normal bowel sounds, No tenderness, No mass Back Exam: normal inspection, normal range of motion, No CVA tenderness, No vertebral tenderness Extremity Exam: normal inspection, normal range of motion, pelvis stable Skin Exam: normal color, warm, dry, No rash Lymphatic Exam: No adenopathy Results - Labs Lab/Micro Results: Lab Results-Last 24 Hours 03/01/19 03/01/19 03/01/19 Range/Units 21:14 21:17 21:17 WBC 10.9 H (4.0-10.5) K/mm3 RBC 4.52 (4.1-5.6) M/mm3 Hgb 13.6 (12.5-18.0) gm/dl Hct 41.1 L (42-50) % MCV 90.9 (78-100) fl MCH 30.1 (26-32) pg MCHC 33.1 (32-36) g/dl RDW 15.7 H (11.5-14.0) % Plt Count 187 (150-450) K/mm3 MPV 9.2 (6-9.5) fl Gran % 87.8 H (36.0-66.0) % Eos # (Auto) 0.06 (0-0.5) Absolute Lymphs (auto) 0.54 L (1.0-4.6) Absolute Monos (auto) 0.65 (0.0-1.3) Lymphocytes % 5.0 L (24.0-44.0) % Monocytes % 6.0 (0.0-12.0) % Eosinophils % 0.6 (0.00-5.0) % Basophils % 0.6 (0.0-0.4) % Absolute Granulocytes 9.59 H (1.4-6.9) Basophils # 0.06 (0-0.4) PT (8.83-12.87) SECONDS INR (0.8-3.0) D-Dimer Puncture Site pCO2 (35-45) mmHg pO2 (75-100) mmHg Base Excess (-2.0-2.0) O2 Saturation (94-100) g/dF ABG pH (7.35-7.45) ABG HCO3 (22-28) ABG O2 Sat (Measured) (95-100) % Sunday Test A-a Gradient a/A Ratio Hemoglobin Carboxyhemoglobin (0.0-6.9) % THgb Methemoglobin (1.4-1.5) % Temperature C POC O2 Flow Rate % Sodium 141 (137-145) mmol/L Potassium 4.0 (3.5-5.1) mmol/L Chloride 107 (98-107) mmol/L Carbon Dioxide 25 (22-30) mmol/L Anion Gap 13.2 (5-15) MEQ/L BUN 20 (9-20) mg/dL Creatinine 1.30 H (0.66-1.25) mg/dL Estimated GFR 56.9 ML/MIN Glucose 93 (74-106) mg/dL Lactic Acid (0.4-2.0) Calcium 9.0 (8.4-10.2) mg/dL Magnesium 1.8 (1.6-2.3) mg/dL Total Bilirubin 0.40 (0.2-1.3) mg/dL AST 26 (17-59) U/L ALT 36 (0-50) U/L Alkaline Phosphatase 108 (38-126) U/L Troponin I (0.000-0.034) ng/mL NT-Pro-B Natriuret Pep 988 (0-1800) pg/mL Serum Total Protein 7.3 (6.3-8.2) g/dL Albumin 3.7 (3.5-5.0) g/dL Urine Color (YELLOW) Urine Appearance (CLEAR) Urine pH (5-6) Ur Specific [place] (1.005-1.025) Urine Protein (Negative) Urine Ketones (NEGATIVE) Urine Blood (0-5) Marcelino/ul Urine Nitrite (NEGATIVE) Urine Bilirubin (NEGATIVE) Urine Urobilinogen (0-1) mg/dL Ur Leukocyte Esterase (NEGATIVE) Urine WBC (Auto) (0-5) /HPF Urine RBC (Auto) (0-2) /HPF U Epithel Cells (Auto) (FEW) /HPF Urine Bacteria (Auto) (NEGATIVE) /HPF Other Casts (Auto) (NEGATIVE) /LPF Urine Mucus (Auto) (NEGATIVE) /HPF Urine Culture Reflexed (NO) Urine Glucose (NEGATIVE) mg/dL Acetaminophen (10-30) ug/ml Influenza Type A Ag NEGATIVE (NEGATIVE) Influenza Type B Ag NEGATIVE (NEGATIVE) RSV (PCR) NEGATIVE (Negative) Slides for Path Review YES 03/01/19 03/01/19 03/01/19 Range/Units 21:17 21:17 21:17 WBC (4.0-10.5) K/mm3 RBC (4.1-5.6) M/mm3 Hgb (12.5-18.0) gm/dl Hct (42-50) % MCV (78-100) fl MCH (26-32) pg MCHC (32-36) g/dl RDW (11.5-14.0) % Plt Count (150-450) K/mm3 MPV (6-9.5) fl Gran % (36.0-66.0) % Eos # (Auto) (0-0.5) Absolute Lymphs (auto) (1.0-4.6) Absolute Monos (auto) (0.0-1.3) Lymphocytes % (24.0-44.0) % Monocytes % (0.0-12.0) % Eosinophils % (0.00-5.0) % Basophils % (0.0-0.4) % Absolute Granulocytes (1.4-6.9) Basophils # (0-0.4) PT 12.1 (8.83-12.87) SECONDS INR 1.04 (0.8-3.0) D-Dimer JIG HAND Puncture Site pCO2 (35-45) mmHg pO2 (75-100) mmHg Base Excess (-2.0-2.0) O2 Saturation (94-100) g/dF ABG pH (7.35-7.45) ABG HCO3 (22-28) ABG O2 Sat (Measured) (95-100) % Sunday Test A-a Gradient a/A Ratio Hemoglobin Carboxyhemoglobin (0.0-6.9) % THgb Methemoglobin (1.4-1.5) % Temperature C POC O2 Flow Rate % Sodium (137-145) mmol/L Potassium (3.5-5.1) mmol/L Chloride (98-107) mmol/L Carbon Dioxide (22-30) mmol/L Anion Gap (5-15) MEQ/L BUN (9-20) mg/dL Creatinine (0.66-1.25) mg/dL Estimated GFR ML/MIN Glucose (74-106) mg/dL Lactic Acid (0.4-2.0) Calcium (8.4-10.2) mg/dL Magnesium (1.6-2.3) mg/dL Total Bilirubin (0.2-1.3) mg/dL AST (17-59) U/L ALT (0-50) U/L Alkaline Phosphatase (38-126) U/L Troponin I < 0.012 (0.000-0.034) ng/mL NT-Pro-B Natriuret Pep (0-1800) pg/mL Serum Total Protein (6.3-8.2) g/dL Albumin (3.5-5.0) g/dL Urine Color (YELLOW) Urine Appearance (CLEAR) Urine pH (5-6) Ur Specific [place] (1.005-1.025) Urine Protein (Negative) Urine Ketones (NEGATIVE) Urine Blood (0-5) Marcelino/ul Urine Nitrite (NEGATIVE) Urine Bilirubin (NEGATIVE) Urine Urobilinogen (0-1) mg/dL Ur Leukocyte Esterase (NEGATIVE) Urine WBC (Auto) (0-5) /HPF Urine RBC (Auto) (0-2) /HPF U Epithel Cells (Auto) (FEW) /HPF Urine Bacteria (Auto) (NEGATIVE) /HPF Other Casts (Auto) (NEGATIVE) /LPF Urine Mucus (Auto) (NEGATIVE) /HPF Urine Culture Reflexed (NO) Urine Glucose (NEGATIVE) mg/dL Acetaminophen < 10 L (10-30) ug/ml Influenza Type A Ag (NEGATIVE) Influenza Type B Ag (NEGATIVE) RSV (PCR) (Negative) Slides for Path Review 03/01/19 03/01/19 03/02/19 Range/Units 21:20 21:25 00:23 WBC (4.0-10.5) K/mm3 RBC (4.1-5.6) M/mm3 Hgb (12.5-18.0) gm/dl Hct (42-50) % MCV (78-100) fl MCH (26-32) pg MCHC (32-36) g/dl RDW (11.5-14.0) % Plt Count (150-450) K/mm3 MPV (6-9.5) fl Gran % (36.0-66.0) % Eos # (Auto) (0-0.5) Absolute Lymphs (auto) (1.0-4.6) Absolute Monos (auto) (0.0-1.3) Lymphocytes % (24.0-44.0) % Monocytes % (0.0-12.0) % Eosinophils % (0.00-5.0) % Basophils % (0.0-0.4) % Absolute Granulocytes (1.4-6.9) Basophils # (0-0.4) PT (8.83-12.87) SECONDS INR (0.8-3.0) D-Dimer Puncture Site LEFT RADIAL pCO2 32 L (35-45) mmHg pO2 70 L (75-100) mmHg Base Excess 1.0 (-2.0-2.0) O2 Saturation 93.0 L (94-100) g/dF ABG pH 7.48 H (7.35-7.45) ABG HCO3 23.8 (22-28) ABG O2 Sat (Measured) 97.0 (95-100) % Sunday Test YES A-a Gradient 175 a/A Ratio 0.29 Hemoglobin 14.3 Carboxyhemoglobin 2.7 (0.0-6.9) % THgb Methemoglobin 1.3 L (1.4-1.5) % Temperature 37.0 C POC O2 Flow Rate 40 % Sodium (137-145) mmol/L Potassium 4.0 (3.5-5.1) mmol/L Chloride (98-107) mmol/L Carbon Dioxide (22-30) mmol/L Anion Gap (5-15) MEQ/L BUN (9-20) mg/dL Creatinine (0.66-1.25) mg/dL Estimated GFR ML/MIN Glucose (74-106) mg/dL Lactic Acid 0.8 (0.4-2.0) Calcium (8.4-10.2) mg/dL Magnesium (1.6-2.3) mg/dL Total Bilirubin (0.2-1.3) mg/dL AST (17-59) U/L ALT (0-50) U/L Alkaline Phosphatase (38-126) U/L Troponin I < 0.012 (0.000-0.034) ng/mL NT-Pro-B Natriuret Pep (0-1800) pg/mL Serum Total Protein (6.3-8.2) g/dL Albumin (3.5-5.0) g/dL Urine Color YELLOW (YELLOW) Urine Appearance CLEAR (CLEAR) Urine pH 5.0 (5-6) Ur Specific [place] 1.016 (1.005-1.025) Urine Protein 30 (Negative) Urine Ketones NEGATIVE (NEGATIVE) Urine Blood SMALL (0-5) Marcelino/ul Urine Nitrite NEGATIVE (NEGATIVE) Urine Bilirubin NEGATIVE (NEGATIVE) Urine Urobilinogen NEGATIVE (0-1) mg/dL Ur Leukocyte Esterase NEGATIVE (NEGATIVE) Urine WBC (Auto) 0-2 (0-5) /HPF Urine RBC (Auto) 6-10 (0-2) /HPF U Epithel Cells (Auto) RARE (FEW) /HPF Urine Bacteria (Auto) RARE (NEGATIVE) /HPF Other Casts (Auto) 5-10 (NEGATIVE) /LPF Urine Mucus (Auto) SLIGHT (NEGATIVE) /HPF Urine Culture Reflexed NO (NO) Urine Glucose NEGATIVE (NEGATIVE) mg/dL Acetaminophen (10-30) ug/ml Influenza Type A Ag (NEGATIVE) Influenza Type B Ag (NEGATIVE) RSV (PCR) (Negative) Slides for Path Review 03/02/19 03/02/19 03/02/19 Range/Units 03:27 05:15 05:15 WBC 13.7 H (4.0-10.5) K/mm3 RBC 3.96 L (4.1-5.6) M/mm3 Hgb 11.8 L (12.5-18.0) gm/dl Hct 36.6 L (42-50) % MCV 92.4 (78-100) fl MCH 29.7 (26-32) pg MCHC 32.2 (32-36) g/dl RDW 15.5 H (11.5-14.0) % Plt Count 154 (150-450) K/mm3 MPV 9.1 (6-9.5) fl Gran % 95.4 H (36.0-66.0) % Eos # (Auto) 0.01 (0-0.5) Absolute Lymphs (auto) 0.12 L (1.0-4.6) Absolute Monos (auto) 0.48 (0.0-1.3) Lymphocytes % 0.9 L (24.0-44.0) % Monocytes % 3.5 (0.0-12.0) % Eosinophils % 0.1 (0.00-5.0) % Basophils % 0.1 (0.0-0.4) % Absolute Granulocytes 13.10 H (1.4-6.9) Basophils # 0.02 (0-0.4) PT (8.83-12.87) SECONDS INR (0.8-3.0) D-Dimer Puncture Site pCO2 (35-45) mmHg pO2 (75-100) mmHg Base Excess (-2.0-2.0) O2 Saturation (94-100) g/dF ABG pH (7.35-7.45) ABG HCO3 (22-28) ABG O2 Sat (Measured) (95-100) % Sunday Test A-a Gradient a/A Ratio Hemoglobin Carboxyhemoglobin (0.0-6.9) % THgb Methemoglobin (1.4-1.5) % Temperature C POC O2 Flow Rate % Sodium (137-145) mmol/L Potassium (3.5-5.1) mmol/L Chloride (98-107) mmol/L Carbon Dioxide (22-30) mmol/L Anion Gap (5-15) MEQ/L BUN (9-20) mg/dL Creatinine (0.66-1.25) mg/dL Estimated GFR ML/MIN Glucose (74-106) mg/dL Lactic Acid (0.4-2.0) Calcium (8.4-10.2) mg/dL Magnesium (1.6-2.3) mg/dL Total Bilirubin (0.2-1.3) mg/dL AST (17-59) U/L ALT (0-50) U/L Alkaline Phosphatase (38-126) U/L Troponin I < 0.012 < 0.012 (0.000-0.034) ng/mL NT-Pro-B Natriuret Pep (0-1800) pg/mL Serum Total Protein (6.3-8.2) g/dL Albumin (3.5-5.0) g/dL Urine Color (YELLOW) Urine Appearance (CLEAR) Urine pH (5-6) Ur Specific [place] (1.005-1.025) Urine Protein (Negative) Urine Ketones (NEGATIVE) Urine Blood (0-5) Marcelino/ul Urine Nitrite (NEGATIVE) Urine Bilirubin (NEGATIVE) Urine Urobilinogen (0-1) mg/dL Ur Leukocyte Esterase (NEGATIVE) Urine WBC (Auto) (0-5) /HPF Urine RBC (Auto) (0-2) /HPF U Epithel Cells (Auto) (FEW) /HPF Urine Bacteria (Auto) (NEGATIVE) /HPF Other Casts (Auto) (NEGATIVE) /LPF Urine Mucus (Auto) (NEGATIVE) /HPF Urine Culture Reflexed (NO) Urine Glucose (NEGATIVE) mg/dL Acetaminophen (10-30) ug/ml Influenza Type A Ag (NEGATIVE) Influenza Type B Ag (NEGATIVE) RSV (PCR) (Negative) Slides for Path Review YES 03/02/19 Range/Units 05:15 WBC (4.0-10.5) K/mm3 RBC (4.1-5.6) M/mm3 Hgb (12.5-18.0) gm/dl Hct (42-50) % MCV (78-100) fl MCH (26-32) pg MCHC (32-36) g/dl RDW (11.5-14.0) % Plt Count (150-450) K/mm3 MPV (6-9.5) fl Gran % (36.0-66.0) % Eos # (Auto) (0-0.5) Absolute Lymphs (auto) (1.0-4.6) Absolute Monos (auto) (0.0-1.3) Lymphocytes % (24.0-44.0) % Monocytes % (0.0-12.0) % Eosinophils % (0.00-5.0) % Basophils % (0.0-0.4) % Absolute Granulocytes (1.4-6.9) Basophils # (0-0.4) PT (8.83-12.87) SECONDS INR (0.8-3.0) D-Dimer Puncture Site pCO2 (35-45) mmHg pO2 (75-100) mmHg Base Excess (-2.0-2.0) O2 Saturation (94-100) g/dF ABG pH (7.35-7.45) ABG HCO3 (22-28) ABG O2 Sat (Measured) (95-100) % Sunday Test A-a Gradient a/A Ratio Hemoglobin Carboxyhemoglobin (0.0-6.9) % THgb Methemoglobin (1.4-1.5) % Temperature C POC O2 Flow Rate % Sodium 138 (137-145) mmol/L Potassium 4.1 (3.5-5.1) mmol/L Chloride 106 (98-107) mmol/L Carbon Dioxide 23 (22-30) mmol/L Anion Gap 13.1 (5-15) MEQ/L BUN 24 H (9-20) mg/dL Creatinine 1.44 H (0.66-1.25) mg/dL Estimated GFR 50.6 ML/MIN Glucose 209 H (74-106) mg/dL Lactic Acid (0.4-2.0) Calcium 8.3 L (8.4-10.2) mg/dL Magnesium (1.6-2.3) mg/dL Total Bilirubin (0.2-1.3) mg/dL AST (17-59) U/L ALT (0-50) U/L Alkaline Phosphatase (38-126) U/L Troponin I (0.000-0.034) ng/mL NT-Pro-B Natriuret Pep (0-1800) pg/mL Serum Total Protein (6.3-8.2) g/dL Albumin (3.5-5.0) g/dL Urine Color (YELLOW) Urine Appearance (CLEAR) Urine pH (5-6) Ur Specific [place] (1.005-1.025) Urine Protein (Negative) Urine Ketones (NEGATIVE) Urine Blood (0-5) Marcelino/ul Urine Nitrite (NEGATIVE) Urine Bilirubin (NEGATIVE) Urine Urobilinogen (0-1) mg/dL Ur Leukocyte Esterase (NEGATIVE) Urine WBC (Auto) (0-5) /HPF Urine RBC (Auto) (0-2) /HPF U Epithel Cells (Auto) (FEW) /HPF Urine Bacteria (Auto) (NEGATIVE) /HPF Other Casts (Auto) (NEGATIVE) /LPF Urine Mucus (Auto) (NEGATIVE) /HPF Urine Culture Reflexed (NO) Urine Glucose (NEGATIVE) mg/dL Acetaminophen (10-30) ug/ml Influenza Type A Ag (NEGATIVE) Influenza Type B Ag (NEGATIVE) RSV (PCR) (Negative) Slides for Path Review - Radiology Impressions Radiology Exams & Impressions: Radiology Procedures Category Date Time Status CHEST 1 VIEW (PORTABLE) Stat Exams 03/01/19 20:50 Completed CHEST WITH CONTRAST [CT] Stat Exams 03/01/19 23:00 Completed - Other Procedures and Tests Respiratory Therapy 03/02/19 00:28 Respiratory Therapy Assessment DAILY 03/02/19 03:19 Oxygen Nasal Cannula 4 lpm Peak Expiratory Flow Rate ONCE Assessment/Plan (1) Pneumonia Current Visit: Yes Status: Acute Code(s): J18.9 - PNEUMONIA, UNSPECIFIED ORGANISM (2) Squamous cell lung cancer Current Visit: No Status: Acute Qualifiers: Code(s): C34.90 - MALIGNANT NEOPLASM OF UNSP PART OF UNSP BRONCHUS OR LUNG (3) COPD (chronic obstructive pulmonary disease) Current Visit: No Status: Chronic Qualifiers: (4) COPD exacerbation Current Visit: No Status: Resolved Code(s): J44.1 - CHRONIC OBSTRUCTIVE PULMONARY DISEASE W (ACUTE) EXACERBATION
[2019-03-02] MEDS ORDERED: MEDROL 4 MG PO SCH (10:00)
[2019-03-02] MEDS: Apresoline 25 MG TABLET PO SCH ×2 (10:28→21:37)
[2019-03-02] MEDS: BUMEX 1 MG PO SCH ×2 (10:28→17:21)
[2019-03-02] MEDS: Lopressor 25MG Tab PO SCH ×2 (10:29→21:37)
[2019-03-02] MEDS: FOLATE 1 MG PO SCH (10:29)
[2019-03-02] MEDS: MAG-OX 400 PO SCH ×2 (10:29→21:37)
[2019-03-02] MEDS: Klor Con 10 MEQ PO SCH ×2 (10:29→21:37)
[2019-03-02] MEDS: Pepcid 20 MG PO SCH ×2 (10:29→21:37)
[2019-03-02] MEDS: Protonix 40MG Tablet PO SCH (10:30)
[2019-03-02] MEDS: Sodium Chloride 0.9% 1000 ML 1,000 ML IV SCH ×2 (12:08→23:12)
[2019-03-02] MEDS ORDERED: LEVOFLOXACIN 750MG/150ML D5W 750 MG/150 ML BAG IV SCH (21:00)
[2019-03-02] MEDS ORDERED: Zocor 10MG PO SCH (22:00)
[2019-03-03] MEDS: DUONEB 0.5-3 MG/3 ml Neb IH SCH ×3 (03:00→11:25)
[2019-03-03 05:45] LABS: Hematocrit 34.1 % (42-50); Hemoglobin 11.1 gm/dl (12.5-18.0); Mean Cell Volume 92.2 fl (78-100); Mean Corpuscular Hgb Concent. 32.6 g/dl (32-36); Platelet Count 147 K/mm3 (150-450); Red Cell Distribution Width 15.9 % (11.5-14.0); White Blood Count 14.8 K/mm3 (4.0-10.5)
[2019-03-03 06:05] LABS: ANION GAP 12.9 MEQ/L (5-15); Calcium 8.1 mg/dL (8.4-10.2); Creatinine 1 1.38 mg/dL (0.66-1.25); Potassium 3.6 mmol/L (3.5-5.1)
[2019-03-03] MEDS: solu-MEDROL 40 MG IV SCH (06:39)
[2019-03-03] MEDS: BUMEX 1 MG PO SCH ×2 (10:33→10:38)
[2019-03-03] MEDS: Lopressor 25MG Tab PO SCH (10:33)
[2019-03-03] MEDS: Klor Con 10 MEQ PO SCH (10:34)
[2019-03-03] MEDS: Protonix 40MG Tablet PO SCH (10:34)
[2019-03-03] MEDS: FOLATE 1 MG PO SCH (10:34)
[2019-03-03] MEDS: Apresoline 25 MG TABLET PO SCH (10:34)
[2019-03-03] MEDS: MAG-OX 400 PO SCH (10:34)
[2019-03-03] MEDS: Pepcid 20 MG PO SCH (10:34)
[2019-03-03 12:20] VITALS: BP 150/63
[2019-03-03 12:29] VITALS: PULSE 76; O2SAT 98
--- NOTE | 2019-03-03 13:22 | PCM.DS ---
Discharge Summary Date of Admission: 03/02/19 01:27 Admitting Physician: SADIA GROVER Primary Care Provider: SADIA GROVER Allergies Allergies No Known Drug Allergies Allergy (Verified 03/01/19 21:07) Hospital Summary - Hospital Course Hospital Course: Last Vital Signs Temp 98.0 F 03/03/19 12:00 Pulse 76 03/03/19 12:27 Resp 18 03/03/19 12:27 BP 150/63 03/03/19 12:00 Pulse Ox 98 03/03/19 12:27 Allergies No Known Drug Allergies Allergy (Verified 03/01/19 21:07) Active Medications Acetaminophen (Tylenol 325 Mg) 650 mg PO Q4H PRN PRN PRN Reason: PAIN AND/OR FEVER Stop: 04/01/19 01:39 Albuterol/Ipratropium (Duoneb 0.5-3 Mg/3 Ml Neb) 3 ml IH Q4HRT SIMBA Stop: 04/01/19 02:59 Last Admin: 03/03/19 11:25 Dose: 3 ml Bumetanide (Bumex 1 Mg) 2 mg PO BID DIURETIC SIMBA Stop: 04/01/19 09:59 Last Admin: 03/03/19 10:38 Dose: Not Given Famotidine (Pepcid 20 Mg) 20 mg PO BID SIMBA Stop: 04/01/19 09:59 Last Admin: 03/03/19 10:34 Dose: 20 mg Folic Acid (Folate 1 Mg) 1 mg PO DAILY SIMBA Stop: 04/01/19 09:59 Last Admin: 03/03/19 10:34 Dose: 1 mg Hydralazine HCl (Apresoline 25 Mg Tablet) 50 mg PO BID SIMBA Stop: 04/01/19 09:59 Last Admin: 03/03/19 10:34 Dose: 50 mg Sodium Chloride (Sodium Chloride 0.9% 1000 Ml) 1,000 mls @ 100 mls/hr IV .Q10H SIMBA Stop: 03/31/19 20:59 Last Admin: 03/02/19 23:12 Dose: 100 mls/hr Levofloxacin/Dextrose (Levofloxacin 750mg/150ml D5w) 750 mg in 150 mls @ 100 mls/hr IV Q48H SIMBA Stop: 04/02/19 21:59 Levalbuterol HCl (Xopenex 1.25 Mg/0.5 Ml Ud Nebule) 1.25 mg IH Q2HPRN PRN PRN Reason: DIFFICULTY BREATHING Stop: 04/01/19 01:39 Magnesium Oxide (Mag-Ox 400) 400 mg PO BID SIMBA Stop: 04/01/19 09:59 Last Admin: 03/03/19 10:34 Dose: 400 mg Methylprednisolone Sodium Succinate (Solu-Medrol 40 Mg) 80 mg IV Q8H SIMBA Stop: 04/01/19 06:59 Last Admin: 03/03/19 06:39 Dose: 80 mg Metoprolol Tartrate (Lopressor 25mg Tab) 25 mg PO BID SIMBA Stop: 04/01/19 09:59 Last Admin: 03/03/19 10:33 Dose: 25 mg Pantoprazole Sodium (Protonix 40mg Tablet) 40 mg PO DAILY SIMBA Stop: 04/01/19 09:59 Last Admin: 03/03/19 10:34 Dose: 40 mg Potassium Chloride (Klor Con 10 Meq) 20 meq PO BID SIMBA Stop: 04/01/19 09:59 Last Admin: 03/03/19 10:34 Dose: 20 meq Simvastatin (Zocor 10mg) 10 mg PO HS SIMBA Stop: 04/01/19 21:59 Last Admin: 03/02/19 21:37 Dose: 10 mg Intake & Output 03/03/19 03/04/19 11:59 11:59 Intake Total 3109 Output Total 1650 Balance 1459 Orders 03/02/19 22:00 Simvastatin 10 mg [Zocor 10MG] 10 mg PO HS 03/03/19 22:00 Levofloxacin [Levofloxacin 750Mg/150Ml D5w] 750 mg in 150 ml IV Q48H Lab Tests 03/03/19 03/03/19 05:13 05:13 WBC 14.8 H RBC 3.70 L Hgb 11.1 L Hct 34.1 L MCV 92.2 MCH 30.0 MCHC 32.6 RDW 15.9 H Plt Count 147 L MPV 9.0 Sodium 140 Potassium 3.6 Chloride 108 H Carbon Dioxide 22 Anion Gap 12.9 BUN 28 H Creatinine 1.38 H Estimated GFR 53.1 Glucose 181 H Calcium 8.1 L Microbiology 03/01/19 21:25 Urine, Indwelling Catheter Urine Culture - Final NO GROWTH 03/01/19 22:45 Blood Blood Culture - Preliminary NO GROWTH TO DATE 03/01/19 21:17 Blood Blood Culture - Preliminary NO GROWTH TO DATE - Vitals & Intake/Output Vital Signs: Vital Signs Temperature 98.0 F 03/03/19 12:00 Pulse Rate 76 03/03/19 12:27 Respiratory Rate 18 03/03/19 12:27 Blood Pressure 150/63 03/03/19 12:00 O2 Sat by Pulse Oximetry 98 03/03/19 12:27 Oxygen-Last Documented O2 Percentage 2 Liters = 28% Intake & Output: Intake & Output 03/01/19 03/02/19 03/03/19 03/04/19 11:59 11:59 11:59 11:59 Intake Total 342 3109 Output Total 200 1650 Balance 142 1459 Weight 76.3 kg - Lab Result Diagrams: 03/03/19 05:13 03/03/19 05:13 Lab Results-Last 24 Hrs: Lab Results-Last 24 Hours 03/03/19 03/03/19 Range/Units 05:13 05:13 WBC 14.8 H (4.0-10.5) K/mm3 RBC 3.70 L (4.1-5.6) M/mm3 Hgb 11.1 L (12.5-18.0) gm/dl Hct 34.1 L (42-50) % MCV 92.2 (78-100) fl MCH 30.0 (26-32) pg MCHC 32.6 (32-36) g/dl RDW 15.9 H (11.5-14.0) % Plt Count 147 L (150-450) K/mm3 MPV 9.0 (6-9.5) fl Sodium 140 (137-145) mmol/L Potassium 3.6 (3.5-5.1) mmol/L Chloride 108 H (98-107) mmol/L Carbon Dioxide 22 (22-30) mmol/L Anion Gap 12.9 (5-15) MEQ/L BUN 28 H (9-20) mg/dL Creatinine 1.38 H (0.66-1.25) mg/dL Estimated GFR 53.1 ML/MIN Glucose 181 H (74-106) mg/dL Calcium 8.1 L (8.4-10.2) mg/dL Micro Results-Entire Visit: Microbiology 03/01/19 21:25 Urine Culture - Final Urine, Indwelling Catheter NO GROWTH 03/01/19 22:45 Blood Culture - Preliminary Blood NO GROWTH TO DATE 03/01/19 21:17 Blood Culture - Preliminary Blood NO GROWTH TO DATE - Radiology Exams Ordered Rad Exams-Entire Visit: Radiology Procedures Category Date Time Status CHEST 1 VIEW (PORTABLE) Stat Exams 03/01/19 20:50 Completed CHEST WITH CONTRAST [CT] Stat Exams 03/01/19 23:00 Completed - Procedures and Test Procedures and Tests throughout Hospitalization: Therapy Orders & Screens 03/02/19 00:28 Respiratory Therapy Assessment DAILY Comment: 03/02/19 01:40 Respiratory Therapy Consult ROUTINE Comment: Reason For Exam: Diagnosis: Pneumonia 03/02/19 02:39 RT Screen per Nursing Assess ONCE Comment: Protocol Order Physician Instructions: Greater than 3 points order RT Admission Screen Reason For Exam: Triggered on Admission Diagnosis: PNE, COPD, UTI Diagnosis: PNE, COPD, UTI Pneumonia: No Home O2: Yes Asthma: No CHF: No Home CPAP/BIPAP: No Home Nebs/MDI: Yes Total Points: 10 03/02/19 03:19 Oxygen Nasal Cannula 4 lpm Comment: Diagnosis: PNE, COPD, UTI Peak Expiratory Flow Rate ONCE Comment: Reason For Exam: Diagnosis: PNE, COPD, UTI 03/02/19 09:30 PT Eval & Treat (MD Order) ROUTINE Reason for Eval:: WEAKNESS, SOB Diagnosis: fever with chills for 2 days Discharge Exam General Appearance: no apparent distress, alert Neurologic Exam: alert, oriented x 3, cooperative, normal mood/affect, nml cerebellar function, sensation nml, No motor deficits Eye Exam: PERRL, EOMI, eyes nml inspection Ears, Nose, Throat Exam: normal ENT inspection, pharynx normal, moist mucous membranes Neck Exam: normal inspection, non-tender, supple, full range of motion Respiratory Exam: diminished breath sounds, No respiratory distress Cardiovascular Exam: regular rate/rhythm, normal heart sounds Gastrointestinal/Abdomen Exam: soft, No tenderness, No mass Male Genitalia Exam: deferred Rectal Exam: deferred Back Exam: normal inspection, normal range of motion, No CVA tenderness, No vertebral tenderness Extremity Exam: normal inspection, normal range of motion Skin Exam: normal color, warm, dry Final Diagnosis/Problem List - Final Discharge Diagnosis/Problem (1) Pneumonia Current Visit: Yes Status: Acute Assessment & Plan: Last Vital Signs Temp 98.0 F 03/03/19 12:00 Pulse 76 03/03/19 12:27 Resp 18 03/03/19 12:27 BP 150/63 03/03/19 12:00 Pulse Ox 98 03/03/19 12:27 Allergies No Known Drug Allergies Allergy (Verified 03/01/19 21:07) Active Medications Acetaminophen (Tylenol 325 Mg) 650 mg PO Q4H PRN PRN PRN Reason: PAIN AND/OR FEVER Stop: 04/01/19 01:39 Albuterol/Ipratropium (Duoneb 0.5-3 Mg/3 Ml Neb) 3 ml IH Q4HRT SIMBA Stop: 04/01/19 02:59 Last Admin: 03/03/19 11:25 Dose: 3 ml Bumetanide (Bumex 1 Mg) 2 mg PO BID DIURETIC SIMBA Stop: 04/01/19 09:59 Last Admin: 03/03/19 10:38 Dose: Not Given Famotidine (Pepcid 20 Mg) 20 mg PO BID SIMBA Stop: 04/01/19 09:59 Last Admin: 03/03/19 10:34 Dose: 20 mg Folic Acid (Folate 1 Mg) 1 mg PO DAILY SIMBA Stop: 04/01/19 09:59 Last Admin: 03/03/19 10:34 Dose: 1 mg Hydralazine HCl (Apresoline 25 Mg Tablet) 50 mg PO BID SIMBA Stop: 04/01/19 09:59 Last Admin: 03/03/19 10:34 Dose: 50 mg Sodium Chloride (Sodium Chloride 0.9% 1000 Ml) 1,000 mls @ 100 mls/hr IV .Q10H SIMBA Stop: 03/31/19 20:59 Last Admin: 03/02/19 23:12 Dose: 100 mls/hr Levofloxacin/Dextrose (Levofloxacin 750mg/150ml D5w) 750 mg in 150 mls @ 100 mls/hr IV Q48H SIMBA Stop: 04/02/19 21:59 Levalbuterol HCl (Xopenex 1.25 Mg/0.5 Ml Ud Nebule) 1.25 mg IH Q2HPRN PRN PRN Reason: DIFFICULTY BREATHING Stop: 04/01/19 01:39 Magnesium Oxide (Mag-Ox 400) 400 mg PO BID SIMBA Stop: 04/01/19 09:59 Last Admin: 03/03/19 10:34 Dose: 400 mg Methylprednisolone Sodium Succinate (Solu-Medrol 40 Mg) 80 mg IV Q8H SIMBA Stop: 04/01/19 06:59 Last Admin: 03/03/19 06:39 Dose: 80 mg Metoprolol Tartrate (Lopressor 25mg Tab) 25 mg PO BID SIMBA Stop: 04/01/19 09:59 Last Admin: 03/03/19 10:33 Dose: 25 mg Pantoprazole Sodium (Protonix 40mg Tablet) 40 mg PO DAILY [facility] Stop: 04/01/19 09:59 Last Admin: 03/03/19 10:34 Dose: 40 mg Potassium Chloride (Klor Con 10 Meq) 20 meq PO BID [facility] Stop: 04/01/19 09:59 Last Admin: 03/03/19 10:34 Dose: 20 meq Simvastatin (Zocor 10mg) 10 mg PO [facility] Stop: 04/01/19 21:59 Last Admin: 03/02/19 21:37 Dose: 10 mg Intake & Output 03/03/19 03/04/19 11:59 11:59 Intake Total 3109 Output Total 1650 Balance 1459 Orders 03/02/19 22:00 Simvastatin 10 mg [Zocor 10MG] 10 mg PO HS 03/03/19 22:00 Levofloxacin [Levofloxacin 750Mg/150Ml D5w] 750 mg in 150 ml IV Q48H Lab Tests 03/03/19 03/03/19 05:13 05:13 WBC 14.8 H RBC 3.70 L Hgb 11.1 L Hct 34.1 L MCV 92.2 MCH 30.0 MCHC 32.6 RDW 15.9 H Plt Count 147 L MPV 9.0 Sodium 140 Potassium 3.6 Chloride 108 H Carbon Dioxide 22 Anion Gap 12.9 BUN 28 H Creatinine 1.38 H Estimated GFR 53.1 Glucose 181 H Calcium 8.1 L Microbiology 03/01/19 21:25 Urine, Indwelling Catheter Urine Culture - Final NO GROWTH 03/01/19 22:45 Blood Blood Culture - Preliminary NO GROWTH TO DATE 03/01/19 21:17 Blood Blood Culture - Preliminary NO GROWTH TO DATE continue present management. Code(s): J18.9 - PNEUMONIA, UNSPECIFIED ORGANISM (2) Squamous cell lung cancer Current Visit: No Status: Acute Assessment & Plan: Laboratory Results - last 24 hr 03/03/19 03/03/19 05:13 05:13 WBC 14.8 H RBC 3.70 L Hgb 11.1 L Hct 34.1 L MCV 92.2 MCH 30.0 MCHC 32.6 RDW 15.9 H Plt Count 147 L MPV 9.0 Sodium 140 Potassium 3.6 Chloride 108 H Carbon Dioxide 22 Anion Gap 12.9 BUN 28 H Creatinine 1.38 H Estimated GFR 53.1 Glucose 181 H Calcium 8.1 L Code(s): C34.90 - MALIGNANT NEOPLASM OF UNSP PART OF UNSP BRONCHUS OR LUNG (3) COPD (chronic obstructive pulmonary disease) Current Visit: Yes Status: Chronic Priority: Medium (4) COPD exacerbation Current Visit: Yes Status: Resolved Code(s): J44.1 - CHRONIC OBSTRUCTIVE PULMONARY DISEASE W (ACUTE) EXACERBATION - Discharge Discharge Date: 03/03/19 Disposition: Home, Self-Care Condition: Stable Prescriptions: New Levofloxacin [Levaquin] 500 mg PO DAILY #7 tablet Continue Folic Acid 1 mg PO DAILY Simvastatin [Zocor] 10 mg PO HS Magnesium Oxide 400 mg [Mag-Ox 400] 400 mg PO BID Potassium Chloride 10 Meq Tab* [Klor Con 10 MEQ] 20 meq PO BID PANTOPRAZOLE 40 mg Tablet [Protonix 40MG Tablet] 40 mg PO DAILY Hydralazine HCl 50 mg PO BID Bumetanide [Bumex] 2 mg PO BID Metoprolol Tartrate 25 mg [Lopressor 25MG Tab] 25 mg PO BID Famotidine 20 mg [Pepcid 20 MG] 20 mg PO BID Albuterol 2.5 mg/3 ml Neb [Proventil 2.5 mg/3 ml Neb] 2.5 mg NEB Q6HPRN PRN PRN Reason: Shortness Of Breath Methylprednisolone 4 mg [Medrol 4 mg] 4 mg PO DAILY Follow up with: SADIA GROVER MD [Primary Care Provider] - 1 Week MARCIA LEYVA [Family Provider] - 1 Week
[2019-03-03] MEDS ORDERED: LEVOFLOXACIN 750MG/150ML D5W 750 MG/150 ML BAG IV SCH (22:00)
== END 2019-03-03 14:21 | disposition home or self-care (01) | DRG 194 ==
LOC: ED 20:33 → ICU 03-02 01:27
PROVIDERS: ADMIT General Practice; ATTEND General Practice
DX: J18.9 Pneumonia, unspecified organism (principal); C34.92 Malignant neoplasm of unspecified part of left bronchus or lung; J44.1 Chronic obstructive pulmonary disease with (acute) exacerbation; I10 Essential (primary) hypertension; E78.00 Pure hypercholesterolemia, unspecified; I25.10 Atherosclerotic heart disease of native coronary artery without angina pectoris; Z79.899 Other long term (current) drug therapy; I25.2 Old myocardial infarction; Z86.73 Personal history of transient ischemic attack (TIA), and cerebral infarction without residual deficits
CPT/HCPCS: 36000; 36415; 36600; 71045; 71260; 80048; 80053; 81001; 82375; 82803; 83605; 83735; 83880; 84484; 85025; 85027; 85379; 85610; 87040; 87086; 87631; 93005; 93041; 94150; 94640; 94762; 96360; 96361; 96365; 96372; 96374; 97161; 99285; G0481; J1650; J1956; J2920; J2930; J7609; A9270-GY

== ENCOUNTER 2019-08-21 19:46 | Observation (INO) | payer MEDICARE ==
[2019-08-21] MEDS ORDERED: Lasix 40 MG/4 ML IV ONE (19:49)
[2019-08-21] MEDS ORDERED: DUONEB 0.5-3 MG/3 ml Neb IH ONE ×2 (19:49→19:55)
[2019-08-21] MEDS ORDERED: solu-MEDROL 125 MG IV ONE (19:49)
[2019-08-21] MEDS ORDERED: Lasix 40 MG/4 ML ONE (20:03)
[2019-08-21] MEDS ORDERED: solu-MEDROL 125 MG ONE (20:04)
[2019-08-21 20:24] LABS: Absolute Neutrophil Ct (ANC) 17.41 (1.4-6.9); BASOPHIL % 0.2 % (0.0-0.4); Basophil (Absolute #) 0.04 (0-0.4); Eosinophil (Absolute #) 0 (0-0.5); Hematocrit 34.7 % (42-50); Hemoglobin 11.2 gm/dl (12.5-18.0); Lymphocyte (Absolute #) 0.39 (1.0-4.6); Lymphocytes % 2.1 % (24.0-44.0); Mean Cell Volume 92.3 fl (78-100); Mean Corpuscular Hgb Concent. 32.3 g/dl (32-36); Mean Platelet Volume 9.1 fl (6-9.5); Monocyte (Absolute #) 0.86 (0.0-1.3); Monocytes % 4.6 % (0.0-12.0); Neutrophil % 93.1 % (36.0-66.0); Platelet Count 279 K/mm3 (150-450); Red Blood Count 3.76 M/mm3 (4.1-5.6); Red Cell Distribution Width 16.7 % (11.5-14.0); White Blood Count 18.7 K/mm3 (4.0-10.5)
[2019-08-21 20:31] LABS: ALBUMIN 3.6 g/dL (3.5-5.0); ANION GAP 15.5 MEQ/L (5-15); BILIRUBIN,TOTAL 0.5 mg/dL (0.2-1.3); Calcium 9.2 mg/dL (8.4-10.2); Creatinine 1 1.74 mg/dL (0.66-1.25); Direct Bilirubin 0.4 mg/dL (0.0-0.4); MAGNESIUM 1.8 mg/dL (1.6-2.3); Mean Corpuscular Hemoglobin 29.7 pg (26-32); Potassium 3.8 mmol/L (3.5-5.1); Total Protein 7.5 g/dL (6.3-8.2)
[2019-08-21 20:32] LABS: INR 1.16 (0.8-3.0); PROTIME 13.1 SECONDS (8.83-12.87)
[2019-08-21 20:35] LABS: PTT 30.6 SECONDS (24.1-36.1)
[2019-08-21 20:37] LABS: Appearance CLEAR (CLEAR); Bilirubin NEGATIVE (NEGATIVE); Blood NEGATIVE Ery/ul (0-5); Glucose NEGATIVE (NEGATIVE); Ketones NEGATIVE (NEGATIVE); Leukocyte Esterase NEGATIVE (NEGATIVE); Nitrite NEGATIVE (NEGATIVE); Protein,Urine Dip NEGATIVE (Negative); Specific Gravity 1.006 (1.005-1.025); Urobilinogen NEGATIVE mg/dL (0-1)
[2019-08-21 20:46] LABS: Bacteria NONE SEEN /HPF (NEGATIVE)
[2019-08-21 21:14] LABS: INFLUENZA A NEGATIVE (NEGATIVE); INFLUENZA B NEGATIVE (NEGATIVE); RESPIRATORY SYNCTIAL VIRUS NEGATIVE (Negative)
--- NOTE | 2019-08-21 21:34 | ERPHSYRPT ---
- History of Present Illness Time Seen by Provider: 08/21/19 19:50 Source: patient, family Exam Limitations: clinical condition Patient Subjective Stated Complaint: pt states he has been increasingly short of breath today. states he has changed water pills recently and has increased fluid retention. Triage Nursing Assessment: pt alert and oriented, answers questions approp. pt back to room per wheelchair- transfers to stretcher with assisto f 2. unsteady gait noted. pt short of breath with exertion, lung sounds diminished. o2 appled at 3l per nc as pt wears at home. skin warm and dry Timing/Duration: day(s) (4) Activities at Onset: none Severity of Dyspnea-Max: moderate Severity of Dyspnea-Current: moderate Possible Cause: frequent episodes Modifying Factors: Improves With: activity Associated Symptoms: chest pain/discomfort, edema, wheezing, ankle swelling International travel in last 2 weeks: No Allergies/Adverse Reactions: No Known Drug Allergies Allergy (Verified 08/21/19 20:04) Home Medications: Folic Acid 1 mg PO DAILY 01/28/15 [History] Simvastatin [Zocor] 10 mg PO HS 01/28/15 [History] Magnesium Oxide 400 mg [Mag-Ox 400] 400 mg PO BID 04/03/15 [History] Potassium Chloride 10 Meq Tab* [Klor Con 10 MEQ] 20 meq PO BID 05/08/15 [ History] PANTOPRAZOLE 40 mg Tablet [Protonix 40MG Tablet] 40 mg PO DAILY 02/26/16 [ History] Bumetanide [Bumex] 2 mg PO BID 10/29/16 [History] Metoprolol Tartrate 25 mg [Lopressor 25MG Tab] 50 mg PO BID 02/03/17 [ History] Albuterol 2.5 mg/3 ml Neb [Proventil 2.5 mg/3 ml Neb] 2.5 mg NEB Q6HPRN PRN 11/26/17 [History] Methylprednisolone 4 mg [Medrol 4 mg] 4 mg PO DAILY 11/10/18 [History] Amlodipine Besylate 5 mg [Norvasc 5 mg] 5 mg PO DAILY 08/21/19 [History] Mycophenolate Mofetil 500 mg PO 08/21/19 [History] Prednisone 5 mg [Deltasone 5 mg] 30 mg PO DAILY 08/21/19 [History] metOLazone [Metolazone] 5 mg PO DAILY 08/21/19 [History] Hx Tetanus, Diphtheria Vaccination/Date Given: Yes Hx Influenza Vaccination/Date Given: No Hx Pneumococcal Vaccination/Date Given: Yes Immunizations Up to Date: Yes - Review of Systems Constitutional: No Fever, No Chills Eyes: No Symptoms Ears, Nose, & Throat: No Symptoms Respiratory: Cough, Dyspnea, Dyspnea on Exertion (GARCIA) Cardiac: Edema, PND, No Chest Pain, No Syncope Abdominal/Gastrointestinal: No Abdominal Pain, No Nausea, No Vomiting, No Diarrhea Genitourinary Symptoms: No Dysuria Musculoskeletal: Joint Swelling, No Back Pain, No Neck Pain Skin: No Rash Neurological: No Dizziness, No Focal Weakness, No Sensory Changes Psychological: No Symptoms Endocrine: No Symptoms All Other Systems: Reviewed and Negative - Past Medical History Pertinent Past Medical History: Yes Neurological History: TIA ENT History: Cataracts Cardiac History: Congestive Heart Failure, Coronary Artery Disease, High Cholesterol, Hypertension, Myocardial Infarction ([place]) Respiratory History: CHF, COPD, Lung Cancer, Pneumonia Endocrine Medical History: No Pertinent History Musculoskeletal History: No Pertinent History GI Medical History: GI Bleed, Other History: Other Psycho-Social History: No Pertinent History Male Reproductive Disorders: No Pertinent History Other Medical History: some kidney failure, anemia with blood transfusion, Lung cancer left upper lobe - Past Surgical History Past Surgical History: Yes Neuro Surgical History: No Pertinent History Cardiac: Cardiac Catheterization, Cardiac Stent Respiratory: No Pertinent History Gastrointestinal: Appendectomy, Hernia Repair Genitourinary: No Pertinent History Musculoskeletal: Orthopedic Surgery Male Surgical History: No Pertinent History Other Surgical History: EGD AND COLONOSCOPY LAST DONE APRIL 2016 Received many blood transfusions during that time. kyphoplasty t8-t9 - Social History Smoking Status: Former smoker How long have you smoked: 5 yrs ago Exposure to second hand smoke: Yes (not very often) Drug Use: none Patient Lives Alone: No - Nursing Vital Signs Nursing Vital Signs: Initial Vital Signs Temperature 98.3 F 08/21/19 19:47 Pulse Rate 88 08/21/19 19:47 Respiratory Rate 22 08/21/19 19:47 Blood Pressure 181/80 08/21/19 19:47 O2 Sat by Pulse Oximetry 99 08/21/19 19:47 Pain Scale Pain Intensity 5 - Physical Exam General Appearance: moderate distress Eye Exam: PERRL/EOMI Ears, Nose, Throat Exam: hearing grossly normal, normal ENT inspection Neck Exam: normal inspection, supple Respiratory Exam: respiratory distress, diminished breath sounds, rhonchi, wheezing Cardiovascular/Chest Exam: normal heart sounds, regular rate/rhythm Abdominal/Gastrointestinal Exam: soft, No tenderness, No distention, No mass Extremity Exam: non-tender, normal range of motion, normal inspection, no calf tenderness, no pedal edema, pedal edema Neurologic Exam: alert, oriented x 3, cooperative, instructor dancing II-XII nml as tested, sensation nml, No motor deficits Skin Exam: normal color, warm, No dry Lymphatic Exam: No adenopathy SpO2 Interpretation: normal SpO2: 98 - Course EKG Interpreted by Me: RATE (86), Sinus Rhythm, NORMAL AXIS, NORMAL INTERVALS, NORMAL QRS - Radiology Exams Chest X-ray Interpretation: Interpreted by me, Pneumonia (lll infiltrate) Ordered Tests: Active Orders 24 hr Category Date Time Status 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 Guidance Counselor STAT Care 08/21/19 19:53 Active EKG-ER Only STAT Care 08/21/19 20:02 Active IV Insertion STAT Care 08/21/19 19:49 Active Oxygen-ED Only Nasal Cannula 3 lpm Care 08/21/19 19:49 Active CHEST 1 VIEW (PORTABLE) Stat Exams 08/21/19 21:01 Taken CBC W DIFF Stat Lab 08/21/19 20:12 Completed CMP Stat Lab 08/21/19 20:12 Completed CMP Stat Lab 08/21/19 20:12 Completed D-DIMER QUANTITATION Stat Lab 08/21/19 20:12 Completed Direct Bilirubin Stat Lab 08/21/19 20:12 Completed Lactic Acid Stat Lab 08/21/19 20:13 Results MAGNESIUM Stat Lab 08/21/19 20:12 Completed NT PRO BNP Stat Lab 08/21/19 20:12 Completed PROTIME WITH INR Stat Lab 08/21/19 20:12 Completed PTT Stat Lab 08/21/19 20:12 Completed TROPONIN Q3H Lab 08/21/19 20:07 Completed TROPONIN Q3H Lab 08/21/19 23:00 Ordered TROPONIN Q3H Lab 08/22/19 01:00 Ordered TROPONIN Q3H Lab 08/22/19 04:00 Ordered TROPONIN Q3H Lab 08/22/19 07:00 Ordered UA W/RFX UR CULTURE Stat Lab 08/21/19 20:28 Completed Respiratory Therapy Assessment DAILY RT 08/21/19 19:56 Active Medication Summary Discontinued Medications Generic Name Dose Route Start Last Admin Trade Name Radha PRN Reason Stop Dose Admin Albuterol/Ipratropium Confirm 08/21/19 19:55 Duoneb 0.5-3 Mg/3 Ml Neb Administered 08/21/19 19:56 Dose 3 ml IH .STK-MED ONE Albuterol/Ipratropium 3 ml 08/21/19 19:49 08/21/19 20:02 Duoneb 0.5-3 Mg/3 Ml Neb IH 08/21/19 19:50 3 ml STAT ONE Administration Furosemide 40 mg 08/21/19 19:49 08/21/19 20:06 Lasix 40 Mg/4 Ml IV 08/21/19 19:50 40 mg STAT ONE Administration Furosemide Confirm 08/21/19 20:03 Lasix 40 Mg/4 Ml Administered 08/21/19 20:04 Dose 40 mg .ROUTE .STK-MED ONE Methylprednisolone Sodium Succinate 125 mg 08/21/19 19:49 08/21/19 20:06 Solu-Medrol 125 Mg IV 08/21/19 19:50 125 mg STAT ONE Administration Methylprednisolone Sodium Succinate Confirm 08/21/19 20:04 Solu-Medrol 125 Mg Administered 08/21/19 20:05 Dose 125 mg .ROUTE .STK-MED ONE Lab/Rad Data: Laboratory Result Diagrams 08/21/19 20:12 08/21/19 20:12 Laboratory Results 08/21/19 08/21/19 08/21/19 Range/Units 20:28 20:28 20:13 WBC (4.0-10.5) K/mm3 RBC (4.1-5.6) M/mm3 Hgb (12.5-18.0) gm/dl Hct (42-50) % MCV (78-100) fl MCH (26-32) pg MCHC (32-36) g/dl RDW (11.5-14.0) % Plt Count (150-450) K/mm3 MPV (6-9.5) fl Gran % (36.0-66.0) % Eos # (Auto) (0-0.5) Absolute Lymphs (auto) (1.0-4.6) Absolute Monos (auto) (0.0-1.3) Lymphocytes % (24.0-44.0) % Monocytes % (0.0-12.0) % Eosinophils % (0.00-5.0) % Basophils % (0.0-0.4) % Absolute Granulocytes (1.4-6.9) Basophils # (0-0.4) PT (8.83-12.87) SECONDS INR (0.8-3.0) APTT (24.1-36.1) SECONDS D-Dimer (215-500) ng/mL Sodium (137-145) mmol/L Potassium (3.5-5.1) mmol/L Chloride (98-107) mmol/L Carbon Dioxide (22-30) mmol/L Anion Gap (5-15) MEQ/L BUN (9-20) mg/dL Creatinine (0.66-1.25) mg/dL Estimated GFR ML/MIN Glucose (74-106) mg/dL Lactic Acid 2.0 (0.4-2.0) Calcium (8.4-10.2) mg/dL Magnesium (1.6-2.3) mg/dL Total Bilirubin (0.2-1.3) mg/dL Direct Bilirubin (0.0-0.4) mg/dL AST (17-59) U/L ALT (0-50) U/L Alkaline Phosphatase (38-126) U/L Troponin I (0.000-0.034) ng/mL NT-Pro-B Natriuret Pep (0-1800) pg/mL Serum Total Protein (6.3-8.2) g/dL Albumin (3.5-5.0) g/dL Urine Color STRAW (YELLOW) Urine Appearance CLEAR (CLEAR) Urine pH 5.0 (5-6) Ur Specific [place] 1.006 (1.005-1.025) Urine Protein NEGATIVE (Negative) Urine Ketones NEGATIVE (NEGATIVE) Urine Blood NEGATIVE (0-5) Marcelino/ul Urine Nitrite NEGATIVE (NEGATIVE) Urine Bilirubin NEGATIVE (NEGATIVE) Urine Urobilinogen NEGATIVE (0-1) mg/dL Ur Leukocyte Esterase NEGATIVE (NEGATIVE) Urine WBC (Auto) NONE (0-5) /HPF Urine RBC (Auto) NONE (0-2) /HPF U Epithel Cells (Auto) NONE (FEW) /HPF Urine Bacteria (Auto) NONE SEEN (NEGATIVE) /HPF Urine Culture Reflexed NO (NO) Urine Glucose NEGATIVE (NEGATIVE) mg/dL Influenza Type A Ag NEGATIVE (NEGATIVE) Influenza Type B Ag NEGATIVE (NEGATIVE) RSV (PCR) NEGATIVE (Negative) 08/21/19 08/21/19 08/21/19 Range/Units 20:12 20:12 20:12 WBC (4.0-10.5) K/mm3 RBC (4.1-5.6) M/mm3 Hgb (12.5-18.0) gm/dl Hct (42-50) % MCV (78-100) fl MCH (26-32) pg MCHC (32-36) g/dl RDW (11.5-14.0) % Plt Count (150-450) K/mm3 MPV (6-9.5) fl Gran % (36.0-66.0) % Eos # (Auto) (0-0.5) Absolute Lymphs (auto) (1.0-4.6) Absolute Monos (auto) (0.0-1.3) Lymphocytes % (24.0-44.0) % Monocytes % (0.0-12.0) % Eosinophils % (0.00-5.0) % Basophils % (0.0-0.4) % Absolute Granulocytes (1.4-6.9) Basophils # (0-0.4) PT 13.1 H (8.83-12.87) SECONDS INR 1.16 (0.8-3.0) APTT 30.6 (24.1-36.1) SECONDS D-Dimer 1587 H* (215-500) ng/mL Sodium 139 139 (137-145) mmol/L Potassium 4.0 3.8 (3.5-5.1) mmol/L Chloride 97 L 96 L (98-107) mmol/L Carbon Dioxide 30 32 H (22-30) mmol/L Anion Gap 15.9 H 15.5 H (5-15) MEQ/L BUN 38 H 40 H (9-20) mg/dL Creatinine 1.69 H 1.74 H (0.66-1.25) mg/dL Estimated GFR 42.0 40.6 ML/MIN Glucose 164 H 172 H (74-106) mg/dL Lactic Acid (0.4-2.0) Calcium 9.1 9.2 (8.4-10.2) mg/dL Magnesium 1.8 (1.6-2.3) mg/dL Total Bilirubin 0.50 0.50 (0.2-1.3) mg/dL Direct Bilirubin 0.4 (0.0-0.4) mg/dL AST 33 34 (17-59) U/L ALT 30 32 (0-50) U/L Alkaline Phosphatase 127 H 137 H (38-126) U/L Troponin I (0.000-0.034) ng/mL NT-Pro-B Natriuret Pep 703 (0-1800) pg/mL Serum Total Protein 6.7 7.5 (6.3-8.2) g/dL Albumin 3.3 L 3.6 (3.5-5.0) g/dL Urine Color (YELLOW) Urine Appearance (CLEAR) Urine pH (5-6) Ur Specific [place] (1.005-1.025) Urine Protein (Negative) Urine Ketones (NEGATIVE) Urine Blood (0-5) Marcelino/ul Urine Nitrite (NEGATIVE) Urine Bilirubin (NEGATIVE) Urine Urobilinogen (0-1) mg/dL Ur Leukocyte Esterase (NEGATIVE) Urine WBC (Auto) (0-5) /HPF Urine RBC (Auto) (0-2) /HPF U Epithel Cells (Auto) (FEW) /HPF Urine Bacteria (Auto) (NEGATIVE) /HPF Urine Culture Reflexed (NO) Urine Glucose (NEGATIVE) mg/dL Influenza Type A Ag (NEGATIVE) Influenza Type B Ag (NEGATIVE) RSV (PCR) (Negative) 08/21/19 08/21/19 Range/Units 20:12 20:07 WBC 18.7 H (4.0-10.5) K/mm3 RBC 3.76 L (4.1-5.6) M/mm3 Hgb 11.2 L (12.5-18.0) gm/dl Hct 34.7 L (42-50) % MCV 92.3 (78-100) fl MCH 29.7 (26-32) pg MCHC 32.3 (32-36) g/dl RDW 16.7 H (11.5-14.0) % Plt Count 279 (150-450) K/mm3 MPV 9.1 (6-9.5) fl Gran % 93.1 H (36.0-66.0) % Eos # (Auto) 0 (0-0.5) Absolute Lymphs (auto) 0.39 L (1.0-4.6) Absolute Monos (auto) 0.86 (0.0-1.3) Lymphocytes % 2.1 L (24.0-44.0) % Monocytes % 4.6 (0.0-12.0) % Eosinophils % 0.0 (0.00-5.0) % Basophils % 0.2 (0.0-0.4) % Absolute Granulocytes 17.41 H (1.4-6.9) Basophils # 0.04 (0-0.4) PT (8.83-12.87) SECONDS INR (0.8-3.0) APTT (24.1-36.1) SECONDS D-Dimer (215-500) ng/mL Sodium (137-145) mmol/L Potassium (3.5-5.1) mmol/L Chloride (98-107) mmol/L Carbon Dioxide (22-30) mmol/L Anion Gap (5-15) MEQ/L BUN (9-20) mg/dL Creatinine (0.66-1.25) mg/dL Estimated GFR ML/MIN Glucose (74-106) mg/dL Lactic Acid (0.4-2.0) Calcium (8.4-10.2) mg/dL Magnesium (1.6-2.3) mg/dL Total Bilirubin (0.2-1.3) mg/dL Direct Bilirubin (0.0-0.4) mg/dL AST (17-59) U/L ALT (0-50) U/L Alkaline Phosphatase (38-126) U/L Troponin I 0.028 (0.000-0.034) ng/mL NT-Pro-B Natriuret Pep (0-1800) pg/mL Serum Total Protein (6.3-8.2) g/dL Albumin (3.5-5.0) g/dL Urine Color (YELLOW) Urine Appearance (CLEAR) Urine pH (5-6) Ur Specific [place] (1.005-1.025) Urine Protein (Negative) Urine Ketones (NEGATIVE) Urine Blood (0-5) Marcelino/ul Urine Nitrite (NEGATIVE) Urine Bilirubin (NEGATIVE) Urine Urobilinogen (0-1) mg/dL Ur Leukocyte Esterase (NEGATIVE) Urine WBC (Auto) (0-5) /HPF Urine RBC (Auto) (0-2) /HPF U Epithel Cells (Auto) (FEW) /HPF Urine Bacteria (Auto) (NEGATIVE) /HPF Urine Culture Reflexed (NO) Urine Glucose (NEGATIVE) mg/dL Influenza Type A Ag (NEGATIVE) Influenza Type B Ag (NEGATIVE) RSV (PCR) (Negative) - Progress Progress: unchanged Air Movement: fair Blood Culture(s) Obtained: No Antibiotics given: No Discussed with : Héctor Will see patient in: hospital (observation) - Departure Departure Disposition: Home Clinical Impression: Pneumonia Condition: Fair Critical Care Time: No Referrals: SADIA GROVER MD [Primary Care Provider] - Plan of Treatment: admit
[2019-08-21] MEDS ORDERED: ROCEPHIN 1 Gm-D5w 50 ml Bag** 1 G/50 ML IVPB IV ONE (21:48)
[2019-08-21] MEDS: Sodium Chloride 0.9% 1000 ML 1,000 ML IV SCH (22:33)
[2019-08-21 23:31] LABS: Lactic Acid 2.5 (0.4-2.0)
[2019-08-22 04:29] LABS: Hematocrit 32.9 % (42-50); Hemoglobin 10.7 gm/dl (12.5-18.0); Mean Cell Volume 90.4 fl (78-100); Mean Corpuscular Hgb Concent. 32.5 g/dl (32-36); Mean Platelet Volume 8.9 fl (6-9.5); Platelet Count 278 K/mm3 (150-450); Red Blood Count 3.64 M/mm3 (4.1-5.6); Red Cell Distribution Width 16.2 % (11.5-14.0); White Blood Count 18.4 K/mm3 (4.0-10.5)
[2019-08-22 04:32] LABS: Mean Corpuscular Hemoglobin 29.3 pg (26-32)
--- NOTE | 2019-08-22 09:13 | PCM.HP ---
History of Present Illness - Chief Complaint Chief Complaint: shortness of breath for 2-3 days History of Present Illness: is a 78 year old male patient states he has been increasingly short of breath today. states he has changed water pills recently and has increased fluid retention.. - Review of Systems Constitutional: Fatigue, Lethargy, No Fever, No Chills Eyes: No Symptoms Ears, Nose, & Throat: No Symptoms Respiratory: Cough, Orthopnea, Short Of Breath, Wheezing Cardiac: Edema, No Chest Pain, No Syncope Abdominal/Gastrointestinal: No Abdominal Pain, No Nausea, No Vomiting, No Diarrhea Genitourinary Symptoms: No Dysuria Musculoskeletal: No Back Pain, No Neck Pain Skin: No Rash Neurological: No Dizziness, No Focal Weakness, No Sensory Changes Psychological: No Symptoms Endocrine: No Symptoms Hematologic/Lymphatic: No Symptoms Immunological/Allergic: No Symptoms Medications & Allergies Home Medications: Home Medication List Folic Acid 1 mg PO DAILY 01/28/15 [History Confirmed 08/21/19] Simvastatin [Zocor] 10 mg PO HS 01/28/15 [History Confirmed 08/21/19] Magnesium Oxide 400 mg [Mag-Ox 400] 400 mg PO BID 04/03/15 [History Confirmed 08/21/19] Potassium Chloride 10 Meq Tab* [Klor Con 10 MEQ] 20 meq PO BID 05/08/15 [ History Confirmed 08/21/19] PANTOPRAZOLE 40 mg Tablet [Protonix 40MG Tablet] 40 mg PO DAILY 02/26/16 [ History Confirmed 08/21/19] Bumetanide [Bumex] 2 mg PO BID 10/29/16 [History Confirmed 08/21/19] Metoprolol Tartrate 25 mg [Lopressor 25MG Tab] 50 mg PO BID 02/03/17 [ History Confirmed 08/21/19] Albuterol 2.5 mg/3 ml Neb [Proventil 2.5 mg/3 ml Neb] 2.5 mg NEB Q6HPRN PRN 11/26/17 [History Confirmed 08/21/19] Methylprednisolone 4 mg [Medrol 4 mg] 4 mg PO DAILY 11/10/18 [History Confirmed 08/21/19] Amlodipine Besylate 5 mg [Norvasc 5 mg] 5 mg PO DAILY 08/21/19 [History Confirmed 08/21/19] Mycophenolate Mofetil 500 mg PO 08/21/19 [History] Prednisone 5 mg [Deltasone 5 mg] 30 mg PO DAILY 08/21/19 [History Confirmed 08/21/19] metOLazone [Metolazone] 5 mg PO DAILY 08/21/19 [History Confirmed 08/21/19] Allergies/Adverse Reactions: Allergies Allergy/AdvReac Type Severity Reaction Status Date / Time No Known Drug Allergies Allergy Verified 08/21/19 20:04 - Past Medical History Past Medical History: Yes Neurological History: TIA ENT History: Cataracts Cardiac History: Congestive Heart Failure, Coronary Artery Disease, High Cholesterol, Hypertension, Myocardial Infarction ([place]) Respiratory History: CHF, COPD, Lung Cancer, Pneumonia Endocrine Medical History: No Pertinent History Musculoskelatal History: No Pertinent History GI Medical History: GI Bleed, Other History: Other Pyscho-Social History: No Pertinent History Male Reproductive Disorders: No Pertinent History Comment: some kidney failure, anemia with blood transfusion, Lung cancer left upper lobe - Past Surgical History Past Surgical History: Yes Neuro Surgical History: No Pertinent History Cardiac History: Cardiac Catheterization, Cardiac Stent Respiratory Surgery: No Pertinent History GI Surgical History: Appendectomy, Hernia Repair Genitourinary Surgical Hx: No Pertinent History Musculskeletal Surgical Hx: Orthopedic Surgery Male Surgical History: No Pertinent History Other Surgical History: EGD AND COLONOSCOPY LAST DONE APRIL 2016 Received many blood transfusions during that time. kyphoplasty t8-t9, cardiac stent x 2 - Social History Smoking Status: Former smoker How long have you smoked: 50 yrs Exposure to second hand smoke: No Alcohol: None Drug Use: none - Physical Exam Vital Signs: Vital Signs - 24 hr Temp Pulse Resp BP Pulse Ox 08/22/19 07:00 98.4 F 84 18 127/71 94 L 08/22/19 03:00 98.5 F 84 15 122/64 95 08/21/19 22:48 97.8 F 99 H 21 133/67 96 08/21/19 21:40 98 08/21/19 21:37 88 20 143/64 99 08/21/19 19:57 90 18 98 08/21/19 19:51 22 100 08/21/19 19:47 98.3 F 88 22 181/80 99 Oxygen-Last 24 hours O2 Percentage 3 Liters = 32% O2 Percentage 3 Liters = 32% O2 Percentage 3 Liters = 32% O2 Percentage 3 Liters = 32% O2 Percentage 3 Liters = 32% O2 Percentage 3 Liters = 32% O2 Percentage 3 Liters = 32% General Appearance: mild distress, alert Neurologic Exam: alert, oriented x 3, cooperative, normal mood/affect, nml cerebellar function, nml station & gait, sensation nml, No motor deficits Eye Exam: PERRL/EOMI, eyes nml inspection Ears, Nose, Throat Exam: normal ENT inspection, TMs normal, pharynx normal, moist mucous membranes Neck Exam: normal inspection, non-tender, supple, full range of motion Respiratory Exam: diminished breath sounds, crackles/rales, rhonchi, wheezing, No respiratory distress Cardiovascular Exam: regular rate/rhythm, normal heart sounds, normal peripheral pulses Gastrointestinal/Abdomen Exam: soft, normal bowel sounds, No tenderness, No mass Back Exam: normal inspection, normal range of motion, No CVA tenderness, No vertebral tenderness Extremity Exam: normal inspection, normal range of motion, pelvis stable Skin Exam: normal color, warm, dry, No rash Lymphatic Exam: No adenopathy Results - Labs Lab/Micro Results: Lab Results-Last 24 Hours 08/21/19 08/21/19 08/21/19 Range/Units 20:07 20:12 20:12 WBC 18.7 H (4.0-10.5) K/mm3 RBC 3.76 L (4.1-5.6) M/mm3 Hgb 11.2 L (12.5-18.0) gm/dl Hct 34.7 L (42-50) % MCV 92.3 (78-100) fl MCH 29.7 (26-32) pg MCHC 32.3 (32-36) g/dl RDW 16.7 H (11.5-14.0) % Plt Count 279 (150-450) K/mm3 MPV 9.1 (6-9.5) fl Gran % 93.1 H (36.0-66.0) % Eos # (Auto) 0 (0-0.5) Absolute Lymphs (auto) 0.39 L (1.0-4.6) Absolute Monos (auto) 0.86 (0.0-1.3) Lymphocytes % 2.1 L (24.0-44.0) % Monocytes % 4.6 (0.0-12.0) % Eosinophils % 0.0 (0.00-5.0) % Basophils % 0.2 (0.0-0.4) % Absolute Granulocytes 17.41 H (1.4-6.9) Basophils # 0.04 (0-0.4) PT (8.83-12.87) SECONDS INR (0.8-3.0) APTT (24.1-36.1) SECONDS D-Dimer (215-500) ng/mL Sodium 139 (137-145) mmol/L Potassium 3.8 (3.5-5.1) mmol/L Chloride 96 L (98-107) mmol/L Carbon Dioxide 32 H (22-30) mmol/L Anion Gap 15.5 H (5-15) MEQ/L BUN 40 H (9-20) mg/dL Creatinine 1.74 H (0.66-1.25) mg/dL Estimated GFR 40.6 ML/MIN Glucose 172 H (74-106) mg/dL Lactic Acid (0.4-2.0) Calcium 9.2 (8.4-10.2) mg/dL Magnesium 1.8 (1.6-2.3) mg/dL Total Bilirubin 0.50 (0.2-1.3) mg/dL Direct Bilirubin 0.4 (0.0-0.4) mg/dL AST 34 (17-59) U/L ALT 32 (0-50) U/L Alkaline Phosphatase 137 H (38-126) U/L Troponin I 0.028 (0.000-0.034) ng/mL NT-Pro-B Natriuret Pep 703 (0-1800) pg/mL Serum Total Protein 7.5 (6.3-8.2) g/dL Albumin 3.6 (3.5-5.0) g/dL Urine Color (YELLOW) Urine Appearance (CLEAR) Urine pH (5-6) Ur Specific [place] (1.005-1.025) Urine Protein (Negative) Urine Ketones (NEGATIVE) Urine Blood (0-5) Marcelino/ul Urine Nitrite (NEGATIVE) Urine Bilirubin (NEGATIVE) Urine Urobilinogen (0-1) mg/dL Ur Leukocyte Esterase (NEGATIVE) Urine WBC (Auto) (0-5) /HPF Urine RBC (Auto) (0-2) /HPF U Epithel Cells (Auto) (FEW) /HPF Urine Bacteria (Auto) (NEGATIVE) /HPF Urine Culture Reflexed (NO) Urine Glucose (NEGATIVE) mg/dL Influenza Type A Ag (NEGATIVE) Influenza Type B Ag (NEGATIVE) RSV (PCR) (Negative) 08/21/19 08/21/19 08/21/19 Range/Units 20:12 20:12 20:13 WBC (4.0-10.5) K/mm3 RBC (4.1-5.6) M/mm3 Hgb (12.5-18.0) gm/dl Hct (42-50) % MCV (78-100) fl MCH (26-32) pg MCHC (32-36) g/dl RDW (11.5-14.0) % Plt Count (150-450) K/mm3 MPV (6-9.5) fl Gran % (36.0-66.0) % Eos # (Auto) (0-0.5) Absolute Lymphs (auto) (1.0-4.6) Absolute Monos (auto) (0.0-1.3) Lymphocytes % (24.0-44.0) % Monocytes % (0.0-12.0) % Eosinophils % (0.00-5.0) % Basophils % (0.0-0.4) % Absolute Granulocytes (1.4-6.9) Basophils # (0-0.4) PT 13.1 H (8.83-12.87) SECONDS INR 1.16 (0.8-3.0) APTT 30.6 (24.1-36.1) SECONDS D-Dimer 1587 H* (215-500) ng/mL Sodium Cancelled (137-145) mmol/L Potassium Cancelled (3.5-5.1) mmol/L Chloride Cancelled (98-107) mmol/L Carbon Dioxide Cancelled (22-30) mmol/L Anion Gap Cancelled (5-15) MEQ/L BUN Cancelled (9-20) mg/dL Creatinine Cancelled (0.66-1.25) mg/dL Estimated GFR Cancelled ML/MIN Glucose Cancelled (74-106) mg/dL Lactic Acid 2.0 (0.4-2.0) Calcium Cancelled (8.4-10.2) mg/dL Magnesium (1.6-2.3) mg/dL Total Bilirubin Cancelled (0.2-1.3) mg/dL Direct Bilirubin (0.0-0.4) mg/dL AST Cancelled (17-59) U/L ALT Cancelled (0-50) U/L Alkaline Phosphatase Cancelled (38-126) U/L Troponin I (0.000-0.034) ng/mL NT-Pro-B Natriuret Pep (0-1800) pg/mL Serum Total Protein Cancelled (6.3-8.2) g/dL Albumin Cancelled (3.5-5.0) g/dL Urine Color (YELLOW) Urine Appearance (CLEAR) Urine pH (5-6) Ur Specific [place] (1.005-1.025) Urine Protein (Negative) Urine Ketones (NEGATIVE) Urine Blood (0-5) Marcelino/ul Urine Nitrite (NEGATIVE) Urine Bilirubin (NEGATIVE) Urine Urobilinogen (0-1) mg/dL Ur Leukocyte Esterase (NEGATIVE) Urine WBC (Auto) (0-5) /HPF Urine RBC (Auto) (0-2) /HPF U Epithel Cells (Auto) (FEW) /HPF Urine Bacteria (Auto) (NEGATIVE) /HPF Urine Culture Reflexed (NO) Urine Glucose (NEGATIVE) mg/dL Influenza Type A Ag (NEGATIVE) Influenza Type B Ag (NEGATIVE) RSV (PCR) (Negative) 08/21/19 08/21/19 08/21/19 Range/Units 20:28 20:28 23:05 WBC (4.0-10.5) K/mm3 RBC (4.1-5.6) M/mm3 Hgb (12.5-18.0) gm/dl Hct (42-50) % MCV (78-100) fl MCH (26-32) pg MCHC (32-36) g/dl RDW (11.5-14.0) % Plt Count (150-450) K/mm3 MPV (6-9.5) fl Gran % (36.0-66.0) % Eos # (Auto) (0-0.5) Absolute Lymphs (auto) (1.0-4.6) Absolute Monos (auto) (0.0-1.3) Lymphocytes % (24.0-44.0) % Monocytes % (0.0-12.0) % Eosinophils % (0.00-5.0) % Basophils % (0.0-0.4) % Absolute Granulocytes (1.4-6.9) Basophils # (0-0.4) PT (8.83-12.87) SECONDS INR (0.8-3.0) APTT (24.1-36.1) SECONDS D-Dimer (215-500) ng/mL Sodium (137-145) mmol/L Potassium (3.5-5.1) mmol/L Chloride (98-107) mmol/L Carbon Dioxide (22-30) mmol/L Anion Gap (5-15) MEQ/L BUN (9-20) mg/dL Creatinine (0.66-1.25) mg/dL Estimated GFR ML/MIN Glucose (74-106) mg/dL Lactic Acid (0.4-2.0) Calcium (8.4-10.2) mg/dL Magnesium (1.6-2.3) mg/dL Total Bilirubin (0.2-1.3) mg/dL Direct Bilirubin (0.0-0.4) mg/dL AST (17-59) U/L ALT (0-50) U/L Alkaline Phosphatase (38-126) U/L Troponin I 0.025 (0.000-0.034) ng/mL NT-Pro-B Natriuret Pep (0-1800) pg/mL Serum Total Protein (6.3-8.2) g/dL Albumin (3.5-5.0) g/dL Urine Color STRAW (YELLOW) Urine Appearance CLEAR (CLEAR) Urine pH 5.0 (5-6) Ur Specific [place] 1.006 (1.005-1.025) Urine Protein NEGATIVE (Negative) Urine Ketones NEGATIVE (NEGATIVE) Urine Blood NEGATIVE (0-5) Marcelino/ul Urine Nitrite NEGATIVE (NEGATIVE) Urine Bilirubin NEGATIVE (NEGATIVE) Urine Urobilinogen NEGATIVE (0-1) mg/dL Ur Leukocyte Esterase NEGATIVE (NEGATIVE) Urine WBC (Auto) NONE (0-5) /HPF Urine RBC (Auto) NONE (0-2) /HPF U Epithel Cells (Auto) NONE (FEW) /HPF Urine Bacteria (Auto) NONE SEEN (NEGATIVE) /HPF Urine Culture Reflexed NO (NO) Urine Glucose NEGATIVE (NEGATIVE) mg/dL Influenza Type A Ag NEGATIVE (NEGATIVE) Influenza Type B Ag NEGATIVE (NEGATIVE) RSV (PCR) NEGATIVE (Negative) 08/21/19 08/22/19 08/22/19 Range/Units 23:30 01:23 EST 04:08 WBC (4.0-10.5) K/mm3 RBC (4.1-5.6) M/mm3 Hgb (12.5-18.0) gm/dl Hct (42-50) % MCV (78-100) fl MCH (26-32) pg MCHC (32-36) g/dl RDW (11.5-14.0) % Plt Count (150-450) K/mm3 MPV (6-9.5) fl Gran % (36.0-66.0) % Eos # (Auto) (0-0.5) Absolute Lymphs (auto) (1.0-4.6) Absolute Monos (auto) (0.0-1.3) Lymphocytes % (24.0-44.0) % Monocytes % (0.0-12.0) % Eosinophils % (0.00-5.0) % Basophils % (0.0-0.4) % Absolute Granulocytes (1.4-6.9) Basophils # (0-0.4) PT (8.83-12.87) SECONDS INR (0.8-3.0) APTT (24.1-36.1) SECONDS D-Dimer (215-500) ng/mL Sodium (137-145) mmol/L Potassium (3.5-5.1) mmol/L Chloride (98-107) mmol/L Carbon Dioxide (22-30) mmol/L Anion Gap (5-15) MEQ/L BUN (9-20) mg/dL Creatinine (0.66-1.25) mg/dL Estimated GFR ML/MIN Glucose (74-106) mg/dL Lactic Acid 2.5 H (0.4-2.0) Calcium (8.4-10.2) mg/dL Magnesium (1.6-2.3) mg/dL Total Bilirubin (0.2-1.3) mg/dL Direct Bilirubin (0.0-0.4) mg/dL AST (17-59) U/L ALT (0-50) U/L Alkaline Phosphatase (38-126) U/L Troponin I 0.023 0.022 (0.000-0.034) ng/mL NT-Pro-B Natriuret Pep (0-1800) pg/mL Serum Total Protein (6.3-8.2) g/dL Albumin (3.5-5.0) g/dL Urine Color (YELLOW) Urine Appearance (CLEAR) Urine pH (5-6) Ur Specific [place] (1.005-1.025) Urine Protein (Negative) Urine Ketones (NEGATIVE) Urine Blood (0-5) Marcelino/ul Urine Nitrite (NEGATIVE) Urine Bilirubin (NEGATIVE) Urine Urobilinogen (0-1) mg/dL Ur Leukocyte Esterase (NEGATIVE) Urine WBC (Auto) (0-5) /HPF Urine RBC (Auto) (0-2) /HPF U Epithel Cells (Auto) (FEW) /HPF Urine Bacteria (Auto) (NEGATIVE) /HPF Urine Culture Reflexed (NO) Urine Glucose (NEGATIVE) mg/dL Influenza Type A Ag (NEGATIVE) Influenza Type B Ag (NEGATIVE) RSV (PCR) (Negative) 08/22/19 08/22/19 08/22/19 Range/Units 04:08 04:30 07:00 WBC 18.4 H (4.0-10.5) K/mm3 RBC 3.64 L (4.1-5.6) M/mm3 Hgb 10.7 L (12.5-18.0) gm/dl Hct 32.9 L (42-50) % MCV 90.4 (78-100) fl MCH 29.3 (26-32) pg MCHC 32.5 (32-36) g/dl RDW 16.2 H (11.5-14.0) % Plt Count 278 (150-450) K/mm3 MPV 8.9 (6-9.5) fl Gran % (36.0-66.0) % Eos # (Auto) (0-0.5) Absolute Lymphs (auto) (1.0-4.6) Absolute Monos (auto) (0.0-1.3) Lymphocytes % (24.0-44.0) % Monocytes % (0.0-12.0) % Eosinophils % (0.00-5.0) % Basophils % (0.0-0.4) % Absolute Granulocytes (1.4-6.9) Basophils # (0-0.4) PT (8.83-12.87) SECONDS INR (0.8-3.0) APTT (24.1-36.1) SECONDS D-Dimer (215-500) ng/mL Sodium (137-145) mmol/L Potassium (3.5-5.1) mmol/L Chloride (98-107) mmol/L Carbon Dioxide (22-30) mmol/L Anion Gap (5-15) MEQ/L BUN (9-20) mg/dL Creatinine (0.66-1.25) mg/dL Estimated GFR ML/MIN Glucose (74-106) mg/dL Lactic Acid 1.6 (0.4-2.0) Calcium (8.4-10.2) mg/dL Magnesium (1.6-2.3) mg/dL Total Bilirubin (0.2-1.3) mg/dL Direct Bilirubin (0.0-0.4) mg/dL AST (17-59) U/L ALT (0-50) U/L Alkaline Phosphatase (38-126) U/L Troponin I 0.022 (0.000-0.034) ng/mL NT-Pro-B Natriuret Pep (0-1800) pg/mL Serum Total Protein (6.3-8.2) g/dL Albumin (3.5-5.0) g/dL Urine Color (YELLOW) Urine Appearance (CLEAR) Urine pH (5-6) Ur Specific [place] (1.005-1.025) Urine Protein (Negative) Urine Ketones (NEGATIVE) Urine Blood (0-5) Marcelino/ul Urine Nitrite (NEGATIVE) Urine Bilirubin (NEGATIVE) Urine Urobilinogen (0-1) mg/dL Ur Leukocyte Esterase (NEGATIVE) Urine WBC (Auto) (0-5) /HPF Urine RBC (Auto) (0-2) /HPF U Epithel Cells (Auto) (FEW) /HPF Urine Bacteria (Auto) (NEGATIVE) /HPF Urine Culture Reflexed (NO) Urine Glucose (NEGATIVE) mg/dL Influenza Type A Ag (NEGATIVE) Influenza Type B Ag (NEGATIVE) RSV (PCR) (Negative) - Radiology Impressions Radiology Exams & Impressions: Radiology Procedures Category Date Time Status CHEST 1 VIEW (PORTABLE) Stat Exams 08/21/19 21:01 Taken - Other Procedures and Tests Respiratory Therapy 08/21/19 19:56 Respiratory Therapy Assessment DAILY Assessment/Plan (1) Pneumonia Current Visit: Yes Status: Acute Qualifiers: Pneumonia type: due to unspecified organism Laterality: bilateral Lung location: lower lobe of lung Qualified Code(s): J18.1 - Lobar pneumonia, unspecified organism Assessment & Plan: Respiratory Therapy 08/21/19 19:56 Respiratory Therapy Assessment DAILY Chief Complaint Diagnosis pneumonia Allergies Allergy/AdvReac Type Severity Reaction Status Date / Time No Known Drug Allergies Allergy Verified 08/21/19 20:04 Vital Signs (Last 24 hours) Temp Pulse Resp BP Pulse Ox 08/22/19 07:00 98.4 F 84 18 127/71 94 L 08/22/19 03:00 98.5 F 84 15 122/64 95 08/21/19 22:48 97.8 F 99 H 21 133/67 96 08/21/19 21:40 98 08/21/19 21:37 88 20 143/64 99 08/21/19 19:57 90 18 98 08/21/19 19:51 22 100 08/21/19 19:47 98.3 F 88 22 181/80 99 Home Medications Medication Instructions Recorded Confirmed Last Taken Type Amlodipine Besylate 5 mg 5 mg PO DAILY 08/21/19 08/21/19 08/21/19 History [Norvasc 5 mg] Mycophenolate Mofetil 500 mg PO 08/21/19 08/21/19 History Prednisone 5 mg [Deltasone 5 30 mg PO DAILY 08/21/19 08/21/19 08/21/19 History mg] metOLazone [Metolazone] 5 mg PO DAILY 08/21/19 08/21/19 08/21/19 History Current Medications Generic Name Dose Route Start Last Admin Trade Name Freq PRN Reason Stop Dose Admin Sodium Chloride 1,000 mls @ 50 mls/hr 08/21/19 21:45 08/21/19 22:33 Sodium Chloride 0.9% 1000 Ml IV 09/20/19 21:44 50 mls/hr .Q20H SIMBA Administration Ceftriaxone Sodium/Dextrose 1 g in 50 mls @ 100 mls/hr 08/22/19 22:00 Rocephin 1 Gm-D5w 50 Ml Bag IV 09/21/19 09:59 QPM SIMBA Azithromycin 500 mg in 250 mls @ 250 mls/hr 08/22/19 22:00 Zithromax 500 Mg/ 250 Ml Nacl Premix IV 09/21/19 09:59 QPM SIMBA Discontinued Medications Generic Name Dose Route Start Last Admin Trade Name Radha PRN Reason Stop Dose Admin Albuterol/Ipratropium Confirm 08/21/19 19:55 Duoneb 0.5-3 Mg/3 Ml Neb Administered 08/21/19 19:56 Dose 3 ml IH .STK-MED ONE Albuterol/Ipratropium 3 ml 08/21/19 19:49 08/21/19 20:02 Duoneb 0.5-3 Mg/3 Ml Neb IH 08/21/19 19:50 3 ml STAT ONE Administration Furosemide 40 mg 08/21/19 19:49 08/21/19 20:06 Lasix 40 Mg/4 Ml IV 08/21/19 19:50 40 mg STAT ONE Administration Furosemide Confirm 08/21/19 20:03 Lasix 40 Mg/4 Ml Administered 08/21/19 20:04 Dose 40 mg .ROUTE .STK-MED ONE Azithromycin 500 mg in 250 mls @ 250 mls/hr 08/22/19 10:00 08/22/19 00:11 Zithromax 500 Mg/ 250 Ml Nacl Premix IV 09/21/19 09:59 250 mls/hr Q24H10 SIMBA Administration Ceftriaxone Sodium/Dextrose 1 g in 50 mls @ 100 mls/hr 08/22/19 10:00 21:54 Rocephin 1 Gm-D5w 50 Ml Bag IV 09/21/19 09:59 100 ml/hr Q24H10 SIMBA 100 mls/hr Administration Ceftriaxone Sodium/Dextrose Confirm 08/21/19 21:48 Rocephin 1 Gm-D5w 50 Ml Bag Administered 08/21/19 21:49 Dose 1 g in 50 mls @ ud IV .STK-MED ONE Methylprednisolone Sodium Succinate 125 mg 08/21/19 19:49 08/21/19 20:06 Solu-Medrol 125 Mg IV 08/21/19 19:50 125 mg STAT ONE Administration Methylprednisolone Sodium Succinate Confirm 08/21/19 20:04 Solu-Medrol 125 Mg Administered 08/21/19 20:05 Dose 125 mg .ROUTE .STK-MED ONE Intake & Output (Last 24 hours) 08/19/19 08/20/19 08/21/19 08/22/19 11:59 11:59 11:59 10:59 Intake Total 972 Output Total 2300 Balance -1328 Weight 73 kg Laboratory Results (Last 24 hours) 08/22/19 08/22/19 08/22/19 07:00 04:30 04:08 WBC 18.4 H RBC 3.64 L Hgb 10.7 L Hct 32.9 L MCV 90.4 MCH 29.3 MCHC 32.5 RDW 16.2 H Plt Count 278 MPV 8.9 Gran % Eos # (Auto) Absolute Lymphs (auto) Absolute Monos (auto) Lymphocytes % Monocytes % Eosinophils % Basophils % Absolute Granulocytes Basophils # PT INR APTT D-Dimer Sodium Potassium Chloride Carbon Dioxide Anion Gap BUN Creatinine Estimated GFR Glucose Lactic Acid 1.6 Calcium Magnesium Total Bilirubin Direct Bilirubin AST ALT Alkaline Phosphatase Troponin I 0.022 NT-Pro-B Natriuret Pep Serum Total Protein Albumin Urine Color Urine Appearance Urine pH Ur Specific [place] Urine Protein Urine Ketones Urine Blood Urine Nitrite Urine Bilirubin Urine Urobilinogen Ur Leukocyte Esterase Urine WBC (Auto) Urine RBC (Auto) U Epithel Cells (Auto) Urine Bacteria (Auto) Urine Culture Reflexed Urine Glucose Influenza Type A Ag Influenza Type B Ag RSV (PCR) 08/22/19 08/22/19 08/21/19 04:08 01:23 EST 23:30 WBC RBC Hgb Hct MCV MCH MCHC RDW Plt Count MPV Gran % Eos # (Auto) Absolute Lymphs (auto) Absolute Monos (auto) Lymphocytes % Monocytes % Eosinophils % Basophils % Absolute Granulocytes Basophils # PT INR APTT D-Dimer Sodium Potassium Chloride Carbon Dioxide Anion Gap BUN Creatinine Estimated GFR Glucose Lactic Acid 2.5 H Calcium Magnesium Total Bilirubin Direct Bilirubin AST ALT Alkaline Phosphatase Troponin I 0.022 0.023 NT-Pro-B Natriuret Pep Serum Total Protein Albumin Urine Color Urine Appearance Urine pH Ur Specific [place] Urine Protein Urine Ketones Urine Blood Urine Nitrite Urine Bilirubin Urine Urobilinogen Ur Leukocyte Esterase Urine WBC (Auto) Urine RBC (Auto) U Epithel Cells (Auto) Urine Bacteria (Auto) Urine Culture Reflexed Urine Glucose Influenza Type A Ag Influenza Type B Ag RSV (PCR) 08/21/19 08/21/19 08/21/19 23:05 20:28 20:28 WBC RBC Hgb Hct MCV MCH MCHC RDW Plt Count MPV Gran % Eos # (Auto) Absolute Lymphs (auto) Absolute Monos (auto) Lymphocytes % Monocytes % Eosinophils % Basophils % Absolute Granulocytes Basophils # PT INR APTT D-Dimer Sodium Potassium Chloride Carbon Dioxide Anion Gap BUN Creatinine Estimated GFR Glucose Lactic Acid Calcium Magnesium Total Bilirubin Direct Bilirubin AST ALT Alkaline Phosphatase Troponin I 0.025 NT-Pro-B Natriuret Pep Serum Total Protein Albumin Urine Color STRAW Urine Appearance CLEAR Urine pH 5.0 Ur Specific [place] 1.006 Urine Protein NEGATIVE Urine Ketones NEGATIVE Urine Blood NEGATIVE Urine Nitrite NEGATIVE Urine Bilirubin NEGATIVE Urine Urobilinogen NEGATIVE Ur Leukocyte Esterase NEGATIVE Urine WBC (Auto) NONE Urine RBC (Auto) NONE U Epithel Cells (Auto) NONE Urine Bacteria (Auto) NONE SEEN Urine Culture Reflexed NO Urine Glucose NEGATIVE Influenza Type A Ag NEGATIVE Influenza Type B Ag NEGATIVE RSV (PCR) NEGATIVE 08/21/19 08/21/19 08/21/19 20:13 20:12 20:12 WBC RBC Hgb Hct MCV MCH MCHC RDW Plt Count MPV Gran % Eos # (Auto) Absolute Lymphs (auto) Absolute Monos (auto) Lymphocytes % Monocytes % Eosinophils % Basophils % Absolute Granulocytes Basophils # PT 13.1 H INR 1.16 APTT 30.6 D-Dimer 1587 H* Sodium Cancelled Potassium Cancelled Chloride Cancelled Carbon Dioxide Cancelled Anion Gap Cancelled BUN Cancelled Creatinine Cancelled Estimated GFR Cancelled Glucose Cancelled Lactic Acid 2.0 Calcium Cancelled Magnesium Total Bilirubin Cancelled Direct Bilirubin AST Cancelled ALT Cancelled Alkaline Phosphatase Cancelled Troponin I NT-Pro-B Natriuret Pep Serum Total Protein Cancelled Albumin Cancelled Urine Color Urine Appearance Urine pH Ur Specific [place] Urine Protein Urine Ketones Urine Blood Urine Nitrite Urine Bilirubin Urine Urobilinogen Ur Leukocyte Esterase Urine WBC (Auto) Urine RBC (Auto) U Epithel Cells (Auto) Urine Bacteria (Auto) Urine Culture Reflexed Urine Glucose Influenza Type A Ag Influenza Type B Ag RSV (PCR) 08/21/19 08/21/19 08/21/19 20:12 20:12 20:07 WBC 18.7 H RBC 3.76 L Hgb 11.2 L Hct 34.7 L MCV 92.3 MCH 29.7 MCHC 32.3 RDW 16.7 H Plt Count 279 MPV 9.1 Gran % 93.1 H Eos # (Auto) 0 Absolute Lymphs (auto) 0.39 L Absolute Monos (auto) 0.86 Lymphocytes % 2.1 L Monocytes % 4.6 Eosinophils % 0.0 Basophils % 0.2 Absolute Granulocytes 17.41 H Basophils # 0.04 PT INR APTT D-Dimer Sodium 139 Potassium 3.8 Chloride 96 L Carbon Dioxide 32 H Anion Gap 15.5 H BUN 40 H Creatinine 1.74 H Estimated GFR 40.6 Glucose 172 H Lactic Acid Calcium 9.2 Magnesium 1.8 Total Bilirubin 0.50 Direct Bilirubin 0.4 AST 34 ALT 32 Alkaline Phosphatase 137 H Troponin I 0.028 NT-Pro-B Natriuret Pep 703 Serum Total Protein 7.5 Albumin 3.6 Urine Color Urine Appearance Urine pH Ur Specific [place] Urine Protein Urine Ketones Urine Blood Urine Nitrite Urine Bilirubin Urine Urobilinogen Ur Leukocyte Esterase Urine WBC (Auto) Urine RBC (Auto) U Epithel Cells (Auto) Urine Bacteria (Auto) Urine Culture Reflexed Urine Glucose Influenza Type A Ag Influenza Type B Ag RSV (PCR) Orders (Last 24 hours) Category Date Time Status Bedrest with BRP/BSC ROUTINE Activity 08/21/19 21:40 Active Thinner Sprayer STAT Care 08/21/19 19:53 Active Code Status Order ROUTINE Care 08/21/19 21:41 Active EKG-ER Only STAT Care 08/21/19 20:02 Active IV Care Q6H Care 08/21/19 21:41 Active IV Insertion STAT Care 08/21/19 19:49 Active Oxygen-ED Only Nasal Cannula 3 lpm Care 08/21/19 19:[address] in Observation ROUTINE Care 08/21/19 21:41 Active Iban Landa, Apply ROUTINE Care 08/21/19 21:41 Active Telemetry q6h Care 08/22/19 02:00 Active Weight,Daily 0600 Care 08/21/19 21:41 Active Cardio-Pulmonary Rehab .as ordered Cons 08/22/19 10:00 Active 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 Cons 08/21/19 23:07 Active Nutritional Admission Screen once Diet 08/21/19 23:07 Active CHEST 1 VIEW (PORTABLE) Stat Exams 08/21/19 21:01 Taken CBC AM.LAB Lab 08/22/19 04:08 Completed CBC W DIFF Stat Lab 08/21/19 20:12 Completed CMP Stat Lab 08/21/19 20:12 Completed D-DIMER QUANTITATION Stat Lab 08/21/19 20:12 Completed Direct Bilirubin Stat Lab 08/21/19 20:12 Completed Lactic Acid Routine Lab 08/22/19 04:30 Completed Lactic Acid Stat Lab 08/21/19 20:13 Completed Lactic Acid Stat Lab 08/21/19 23:30 Completed Lactic Acid Stat Lab 08/22/19 01:31 Ordered MAGNESIUM Stat Lab 08/21/19 20:12 Completed NT PRO BNP Stat Lab 08/21/19 20:12 Completed PROTIME WITH INR Stat Lab 08/21/19 20:12 Completed PTT Stat Lab 08/21/19 20:12 Completed Respiratory Panel Stat Lab 08/21/19 20:28 Completed TROPONIN Q3H Lab 08/21/19 20:07 Completed TROPONIN Q3H Lab 08/21/19 23:05 Completed TROPONIN Q3H Lab 08/22/19 01:23 Completed TROPONIN Q3H Lab 08/22/19 04:08 Completed TROPONIN Q3H Lab 08/22/19 07:00 Completed UA W/RFX UR CULTURE Stat Lab 08/21/19 20:28 Completed Albuterol/Ipratropium 3ml Neb* [DUONEB 0.5-3 MG/3 ml Med 08/21/19 19:55 Discontinued Neb] 3 ml IH .STK-MED ONE Albuterol/Ipratropium 3ml Neb* [DUONEB 0.5-3 MG/3 ml Med 08/21/19 19:49 Discontinued Neb] 3 ml IH STAT ONE Azithromycin 500 mg/250 ml [Zithromax 500 MG/ 250 ML Med 08/22/19 10:00 Discontinued NaCl Premix] 500 mg in 250 ml IV Q24H10 Azithromycin 500 mg/250 ml [Zithromax 500 MG/ 250 ML Med 08/22/19 22:00 Active NaCl Premix] 500 mg in 250 ml IV QPM Ceftriaxone 1 GM/50 ML PREMIX* [ROCEPHIN 1 Gm-D5w 50 ml Med 08/22/19 10:00 Discontinued Bag] 1 g in 50 ml IV Q24H10 Ceftriaxone 1 GM/50 ML PREMIX* [ROCEPHIN 1 Gm-D5w 50 ml Med 08/22/19 22:00 Active Bag] 1 g in 50 ml IV QPM Ceftriaxone 1 GM/50 ML PREMIX* [ROCEPHIN 1 Gm-D5w 50 ml Med 08/21/19 21:48 Discontinued Bag] 1 g in 50 ml IV UD Flu Vacc [id number](65Yr Up)/Pf [Fluzone High-Dose 2019- Med 08/22/19 10:00 Once 20 Syr] 180 mcg IM .ONCE ONE Furosemide 40 mg/4 ml [Lasix 40 MG/4 ML] Med 08/21/19 20:03 Discontinued 40 mg .ROUTE .STK-MED ONE Furosemide 40 mg/4 ml [Lasix 40 MG/4 ML] Med 08/21/19 19:49 Discontinued 40 mg IV STAT ONE Methylprednis Sod Succ 125 mg* [solu-MEDROL 125 MG] Med 08/21/19 20:04 Discontinued 125 mg .ROUTE .STK-MED ONE Methylprednis Sod Succ 125 mg* [solu-MEDROL 125 MG] Med 08/21/19 19:49 Discontinued 125 mg IV STAT ONE NaCl 0.9% 1000 ml [Sodium Chloride 0.9% 1000 ML] 1,000 Med 08/21/19 21:45 Active ml IV 50 mls/hr OT Screen per Nursing Assess ONCE OT 08/21/19 23:07 Active PT Screen per Nursing Assess ONCE PT 08/21/19 23:07 Active Respiratory Therapy Assessment DAILY RT 08/21/19 19:56 Active Code(s): J18.9 - PNEUMONIA, UNSPECIFIED ORGANISM (2) COPD (chronic obstructive pulmonary disease) Current Visit: No Status: Chronic Qualifiers: COPD type: chronic bronchitis Chronic bronchitis type: simple Qualified Code(s): J41.0 - Simple chronic bronchitis (3) HTN (hypertension), benign Current Visit: No Status: Chronic Code(s): I10 - ESSENTIAL (PRIMARY) HYPERTENSION (4) CHF (congestive heart failure), NYHA class III Current Visit: No Status: Resolved Qualifiers: Code(s): I50.9 - HEART FAILURE, UNSPECIFIED
--- NOTE | 2019-08-22 09:39 | XRAY ---
Chin: Short of breath. Leg swelling. Comparison: March 08, 2019. Portable chest unchanged again hyperinflated with left base calcified pleural plaquing, right hilar calcified nodes, osteopenia, and T8/T9 kyphoplasty. Remaining heart, lungs, and bony thorax unremarkable.
[2019-08-22] MEDS ORDERED: Zithromax 500 MG/ 250 ML NaCl Premix 500 MG/250 ML IVPB IV SCH ×2 (10:00→22:00)
[2019-08-22] MEDS ORDERED: FLUZONE HIGH-DOSE 2019-20 SYR IM ONE ×2 (10:00→15:00)
[2019-08-22] MEDS ORDERED: ROCEPHIN 1 Gm-D5w 50 ml Bag** 1 G/50 ML IVPB IV SCH ×2 (10:00→22:00)
[2019-08-22] MEDS ORDERED: PROVENTIL 2.5 MG/3 ML NEB IH PRN (12:33)
[2019-08-22] MEDS ORDERED: DELTASONE 5 MG PO SCH (12:45)
[2019-08-22] MEDS: MEDROL 4 MG PO SCH (12:56)
[2019-08-22] MEDS: MAG-OX 400 PO SCH ×2 (12:57→21:30)
[2019-08-22] MEDS: Lopressor 50 MG PO SCH ×2 (12:57→21:31)
[2019-08-22] MEDS: Zaroxolyn 2.5 MG PO SCH (12:57)
[2019-08-22] MEDS: FOLATE 1 MG PO SCH (12:57)
[2019-08-22] MEDS: NORVASC 5 MG PO SCH (12:57)
[2019-08-22] MEDS: Klor Con 10 MEQ PO SCH ×2 (12:57→21:30)
[2019-08-22] MEDS: PATIENT OWN MEDICATION PO SCH ×3 (12:58→21:32)
[2019-08-22] MEDS: BUMEX 1 MG PO SCH (16:23)
[2019-08-22] MEDS: Sodium Chloride 0.9% 1000 ML 1,000 ML IV SCH (18:56)
[2019-08-22] MEDS ORDERED: NON-FORMULARY ITEM (Bumetanide [Bumex] 2 MG) PO SCH (22:00)
[2019-08-22] MEDS ORDERED: Zocor 10MG PO SCH (22:00)
[2019-08-22] MEDS ORDERED: MYCOPHENOLATE MOFETIL PO SCH (22:00)
[2019-08-23] MEDS: MAG-OX 400 PO SCH (09:47)
[2019-08-23] MEDS: MEDROL 4 MG PO SCH (09:47)
[2019-08-23] MEDS: Lopressor 50 MG PO SCH (09:48)
[2019-08-23] MEDS: Zaroxolyn 2.5 MG PO SCH (09:48)
[2019-08-23] MEDS: Klor Con 10 MEQ PO SCH (09:48)
[2019-08-23] MEDS: FOLATE 1 MG PO SCH (09:48)
[2019-08-23] MEDS: NORVASC 5 MG PO SCH (09:48)
[2019-08-23] MEDS: BUMEX 1 MG PO SCH (09:48)
[2019-08-23] MEDS: PATIENT OWN MEDICATION PO SCH ×2 (09:49)
[2019-08-23] MEDS ORDERED: NON-FORMULARY ITEM (Metolazone [Metolazone] 5 MG) PO SCH (10:00)
[2019-08-23 11:56] VITALS: BP 119/64; PULSE 70; O2SAT 96
--- NOTE | 2019-08-23 12:45 | PCM.DS ---
Discharge Summary Date of Admission: 08/21/19 21:54 Admitting Physician: SADIA GROVER Primary Care Provider: SADIA GROVER Allergies Allergies No Known Drug Allergies Allergy (Verified 08/21/19 20:04) Hospital Summary - Hospital Course Hospital Course: Chief Complaint Diagnosis shortness of breath for 2-3 days Allergies Allergy/AdvReac Type Severity Reaction Status Date / Time No Known Drug Allergies Allergy Verified 08/21/19 20:04 Vital Signs (Last 24 hours) Temp Pulse Resp BP Pulse Ox 08/23/19 11:00 98.3 F 70 18 119/64 96 08/23/19 08:27 100 H 20 97 08/23/19 07:00 98.6 F 75 18 128/66 98 08/23/19 03:00 97.6 F 86 18 147/65 96 08/22/19 23:00 98.0 F 92 H 20 139/63 93 L 08/22/19 20:41 75 18 98 08/22/19 19:00 98.5 F 75 19 133/62 94 L 08/22/19 15:00 76 18 129/60 94 L Home Medications Medication Instructions Recorded Confirmed Last Taken Type Amlodipine Besylate 5 mg 5 mg PO DAILY 08/21/19 08/21/19 08/21/19 History [Norvasc 5 mg] Mycophenolate Mofetil 3 tab PO BID 08/21/19 08/22/19 08/21/19 History Prednisone 5 mg [Deltasone 5 5 mg PO UD 08/21/19 08/22/19 08/21/19 History mg] metOLazone [Metolazone] 5 mg PO DAILY 08/21/19 08/21/19 08/21/19 History Current Medications Generic Name Dose Route Start Last Admin Trade Name Freq PRN Reason Stop Dose Admin Albuterol Sulfate 2.5 mg 08/22/19 12:33 Proventil 2.5 Mg/3 Ml Neb IH 09/21/19 12:32 Q6HPRN PRN SHORTNESS OF BREATH Amlodipine Besylate 5 mg 08/22/19 13:00 08/23/19 09:48 Norvasc 5 Mg PO 09/21/19 12:59 5 mg DAILY SIMBA Administration Bumetanide 2 mg 08/22/19 17:00 08/23/19 09:48 Bumex 1 Mg PO 09/21/19 16:59 2 mg BID DIURETIC SIMBA Administration Folic Acid 1 mg 08/22/19 13:00 08/23/19 09:48 Folate 1 Mg PO 09/21/19 12:59 1 mg DAILY SIMBA Administration Sodium Chloride 1,000 mls @ 50 mls/hr 08/21/19 21:45 08/22/19 18:56 Sodium Chloride 0.9% 1000 Ml IV 09/20/19 21:44 50 mls/hr .Q20H SIMBA Administration Ceftriaxone Sodium/Dextrose 1 g in 50 mls @ 100 mls/hr 08/22/19 22:00 21:31 Rocephin 1 Gm-D5w 50 Ml Bag IV 09/21/19 09:59 100 mls/hr QPM SIMBA Administration Azithromycin 500 mg in 250 mls @ 250 mls/hr 08/22/19 22:00 08/22/19 22:40 Zithromax 500 Mg/ 250 Ml Nacl Premix IV 09/21/19 09:59 250 mls/hr QPM SIMBA Administration Magnesium Oxide 400 mg 08/22/19 13:00 08/23/19 09:47 Mag-Ox 400 PO 09/21/19 12:59 400 mg BID SIMBA Administration Methylprednisolone 4 mg 08/22/19 13:00 08/23/19 09:47 Medrol 4 Mg PO 09/21/19 12:59 4 mg DAILY SIMBA Administration Metolazone 5 mg 08/22/19 13:00 08/23/19 09:48 Zaroxolyn 2.5 Mg PO 09/21/19 12:59 5 mg DAILY SIMBA Administration Metoprolol Tartrate 50 mg 08/22/19 13:00 08/23/19 09:48 Lopressor 50 Mg PO 09/21/19 12:59 50 mg BID SIMBA Administration Prednisone 5mg 0 each 08/22/19 13:00 08/23/19 09:49 Tablet PO 09/21/19 12:59 1 each DAILY SIMBA Administration Mycophenolate 500mg 3 each 08/22/19 13:00 08/23/19 09:49 Tablet PO 09/21/19 12:59 3 each BID SIMBA Administration Potassium Chloride 20 meq 08/22/19 13:00 08/23/19 09:48 Klor Con 10 Meq PO 09/21/19 12:59 20 meq BID SIMBA Administration Simvastatin 10 mg 08/22/19 22:00 08/22/19 21:31 Zocor 10mg PO 09/21/19 21:59 10 mg HS SIMBA Administration Discontinued Medications Generic Name Dose Route Start Last Admin Trade Name Radha PRN Reason Stop Dose Admin Albuterol/Ipratropium Confirm 08/21/19 19:55 Duoneb 0.5-3 Mg/3 Ml Neb Administered 08/21/19 19:56 Dose 3 ml IH .STK-MED ONE Albuterol/Ipratropium 3 ml 08/21/19 19:49 08/21/19 20:02 Duoneb 0.5-3 Mg/3 Ml Neb IH 08/21/19 19:50 3 ml STAT ONE Administration Furosemide 40 mg 08/21/19 19:49 08/21/19 20:06 Lasix 40 Mg/4 Ml IV 08/21/19 19:50 40 mg STAT ONE Administration Furosemide Confirm 08/21/19 20:03 Lasix 40 Mg/4 Ml Administered 08/21/19 20:04 Dose 40 mg .ROUTE .STK-MED ONE Azithromycin 500 mg in 250 mls @ 250 mls/hr 08/22/19 10:00 08/22/19 00:11 Zithromax 500 Mg/ 250 Ml Nacl Premix IV 09/21/19 09:59 250 mls/hr Q24H10 SIMBA Administration Ceftriaxone Sodium/Dextrose 1 g in 50 mls @ 100 mls/hr 08/22/19 10:00 21:54 Rocephin 1 Gm-D5w 50 Ml Bag IV 09/21/19 09:59 100 ml/hr Q24H10 SIMBA 100 mls/hr Administration Ceftriaxone Sodium/Dextrose Confirm 08/21/19 21:48 Rocephin 1 Gm-D5w 50 Ml Bag Administered 08/21/19 21:49 Dose 1 g in 50 mls @ ud IV .STK-MED ONE Methylprednisolone Sodium Succinate 125 mg 08/21/19 19:49 08/21/19 20:06 Solu-Medrol 125 Mg IV 08/21/19 19:50 125 mg STAT ONE Administration Methylprednisolone Sodium Succinate Confirm 08/21/19 20:04 Solu-Medrol 125 Mg Administered 08/21/19 20:05 Dose 125 mg .ROUTE .STK-MED ONE Intake & Output (Last 24 hours) 08/21/19 08/22/19 08/23/19 08/24/19 12:59 11:59 11:59 11:59 Intake Total 2212 Output Total 3450 Balance -1238 Weight 72.5 kg Orders (Last 24 hours) Category Date Time Status Albuterol 2.5 mg/3 ml Neb [Proventil 2.5 mg/3 ml Neb Med 08/22/19 12:33 Active ] 2.5 mg IH Q6HPRN PRN Amlodipine Besylate 5 mg [Norvasc 5 mg] Med 08/22/19 13:00 Active 5 mg PO DAILY Azithromycin 500 mg/250 ml [Zithromax 500 MG/ 250 ML Med 08/22/19 22:00 Active NaCl Premix] 500 mg in 250 ml IV QPM Bumetanide 1 mg [Bumex 1 mg] Med 08/22/19 17:00 Active 2 mg PO BID DIURETIC Ceftriaxone 1 GM/50 ML PREMIX* [ROCEPHIN 1 Gm-D5w 50 ml Med 08/22/19 22:00 Active Bag] 1 g in 50 ml IV QPM Flu Vacc [id number](65Yr Up)/Pf [Fluzone High-Dose 2019- Med 08/22/19 15:00 Discontinued 20 Syr] 180 mcg IM .ONCE ONE Folic Acid 1 mg [Folate 1 mg] Med 08/22/19 13:00 Active 1 mg PO DAILY Magnesium Oxide 400 mg [Mag-Ox 400] Med 08/22/19 13:00 Active 400 mg PO BID Methylprednisolone 4 mg [Medrol 4 mg] Med 08/22/19 13:00 Active 4 mg PO DAILY Metolazone 2.5 mg [Zaroxolyn 2.5 MG] Med 08/22/19 13:00 Active 5 mg PO DAILY Metoprolol Tartrate 50 mg [Lopressor 50 MG] Med 08/22/19 13:00 Active 50 mg PO BID Patient Own Med [Patient Own Medication] Med 08/22/19 13:00 Active 0 each PO DAILY Patient Own Med [Patient Own Medication] Med 08/22/19 13:00 Active 3 each PO BID Potassium Chloride 10 Meq Tab* [Klor Con 10 MEQ] Med 08/22/19 13:00 Active 20 meq PO BID Simvastatin 10 mg [Zocor 10MG] Med 08/22/19 22:00 Active 10 mg PO HS PT Eval & Treat (MD Order) ROUTINE PT 08/23/19 08:00 Active Oxygen NASAL CANNULA 3 lpm RT 08/22/19 19:28 Active Pulse Oximetry ROUTINE RT 08/22/19 19:28 Active - Vitals & Intake/Output Vital Signs: Vital Signs Temperature 98.3 F 08/23/19 11:00 Pulse Rate 70 08/23/19 11:00 Respiratory Rate 18 08/23/19 11:00 Blood Pressure 119/64 08/23/19 11:00 O2 Sat by Pulse Oximetry 96 08/23/19 11:00 Oxygen-Last Documented O2 Percentage 3 Liters = 32% Intake & Output: Intake & Output 08/21/19 08/22/19 08/23/19 08/24/19 12:59 11:59 11:59 11:59 Intake Total 2212 Output Total 3450 Balance -1238 Weight 72.5 kg - Lab Result Diagrams: 08/22/19 04:08 08/21/19 20:12 - Radiology Exams Ordered Rad Exams-Entire Visit: Radiology Procedures Category Date Time Status CHEST 1 VIEW (PORTABLE) Stat Exams 08/21/19 21:01 Completed - Procedures and Test Procedures and Tests throughout Hospitalization: Therapy Orders & Screens 08/21/19 19:56 Respiratory Therapy Assessment DAILY Comment: 08/21/19 23:07 PT Screen per Nursing Assess ONCE Comment: Protocol Order Physician Instructions: Greater than 3 points order PT Admission Screenin Reason For Exam: Triggered on Admission Diagnosis: pneumonia Open Wound/Cellutlitis/Pressure Ulcers: No Acute Fx/ORIF/Change in wt bearing status: Yes Severe MUSCULOSKELETAL pain: No ADL Dysfunction: Yes Acute CVA w/Hemiparesis/Hemiplegia: No Decreased Functional Mobility/Strength: Yes Sprain/Strain: No Acute Post-op Mobility Dysfunction: No Total Points: 9 08/22/19 19:28 Oxygen NASAL CANNULA 3 lpm Comment: Diagnosis: shortness of breath for 2-3 days 08/23/19 08:00 PT Eval & Treat (MD Order) ROUTINE Reason for Eval:: weakness, trouble walking, bilateral lower extremity edema Diagnosis: shortness of breath for 2-3 days Discharge Exam General Appearance: no apparent distress, alert Neurologic Exam: alert, oriented x 3, cooperative, normal mood/affect, nml cerebellar function, sensation nml, No motor deficits Eye Exam: PERRL, EOMI, eyes nml inspection Ears, Nose, Throat Exam: normal ENT inspection, pharynx normal, moist mucous membranes Neck Exam: normal inspection, non-tender, supple, full range of motion Respiratory Exam: normal breath sounds, lungs clear, No respiratory distress Cardiovascular Exam: regular rate/rhythm, normal heart sounds Gastrointestinal/Abdomen Exam: soft, No tenderness, No mass Male Genitalia Exam: deferred Rectal Exam: deferred Back Exam: normal inspection, normal range of motion, No CVA tenderness, No vertebral tenderness Extremity Exam: normal inspection, normal range of motion Skin Exam: normal color, warm, dry Final Diagnosis/Problem List - Final Discharge Diagnosis/Problem (1) Pneumonia Current Visit: Yes Status: Acute Assessment & Plan: will d/c home with cephalexin 500 mg po qid for 7 days Code(s): J18.9 - PNEUMONIA, UNSPECIFIED ORGANISM (2) COPD (chronic obstructive pulmonary disease) Current Visit: No Status: Chronic Priority: Medium (3) HTN (hypertension), benign Current Visit: No Status: Chronic Priority: Medium Code(s): I10 - ESSENTIAL (PRIMARY) HYPERTENSION (4) CHF (congestive heart failure), NYHA class III Current Visit: No Status: Resolved Code(s): I50.9 - HEART FAILURE, UNSPECIFIED - Discharge Discharge Date: 08/23/19 Disposition: Home, Self-Care Condition: Stable Prescriptions: New Cephalexin Mh 500 mg [Keflex 500 mg] 500 mg PO QID #28 capsule Continue Folic Acid 1 mg PO DAILY Simvastatin [Zocor] 10 mg PO HS Magnesium Oxide 400 mg [Mag-Ox 400] 400 mg PO BID Potassium Chloride 10 Meq Tab* [Klor Con 10 MEQ] 20 meq PO BID Bumetanide [Bumex] 2 mg PO BID Metoprolol Tartrate 25 mg [Lopressor 25MG Tab] 50 mg PO BID Albuterol 2.5 mg/3 ml Neb [Proventil 2.5 mg/3 ml Neb] 2.5 mg NEB Q6HPRN PRN PRN Reason: Shortness Of Breath Methylprednisolone 4 mg [Medrol 4 mg] 4 mg PO DAILY Prednisone 5 mg [Deltasone 5 mg] 5 mg PO UD Amlodipine Besylate 5 mg [Norvasc 5 mg] 5 mg PO DAILY metOLazone [Metolazone] 5 mg PO DAILY Mycophenolate Mofetil 3 tab PO BID Follow up with: SADIA GROVER MD [Primary Care Provider] - 1 Week
== END 2019-08-23 14:45 | disposition home or self-care (01) ==
LOC: ED 19:46 → MED SURG 21:54
PROVIDERS: ADMIT General Practice; ATTEND General Practice
DX: J18.9 Pneumonia, unspecified organism (principal); J44.9 Chronic obstructive pulmonary disease, unspecified; I10 Essential (primary) hypertension; I50.9 Heart failure, unspecified; I25.10 Atherosclerotic heart disease of native coronary artery without angina pectoris; Z86.73 Personal history of transient ischemic attack (TIA), and cerebral infarction without residual deficits; I25.2 Old myocardial infarction; E78.00 Pure hypercholesterolemia, unspecified; Z79.899 Other long term (current) drug therapy
CPT/HCPCS: 36000; 36415; 71045; 80053; 81001; 82248; 83605; 83735; 83880; 84484; 85025; 85027; 85379; 85610; 85730; 87631; 93005; 93041; 93268; 94640; 94760; 96374; 96375; 97161; 99285; G0378; 90662; J0456; J0696; J1940; J2930; A9270-GY

== ENCOUNTER 2019-10-12 15:08 | Emergency (ER) | payer MEDICARE ==
--- NOTE | 2019-10-12 15:43 | ERPHSYRPT ---
- History of Present Illness Source: patient, family Exam Limitations: no limitations Patient Subjective Stated Complaint: Pt for about the past week has been getting weaker and then last night he started complaining of feeling like his throat was closing off, c/o of feeling like he has sun glasses on all the time like he can't see very well, 2 days ago the pt was able to walk on his own and he doesn't have the strength to use a walker today Triage Nursing Assessment: Pt brought here by his niece, required 3 to get him in bed, hypertensive, edematous legs, last good BM Friday, rates pain 04/28, states that it is the worst pain that he has ever felt in his legs and feet, low grade temp, cough, fine crackles in the left upper lobe Physician History: Pt's nader states that last night he ate a hamburger and this am has been c/o something stuck in his throat, he did not eat much today, has been drinking - states that if he eats he feels like choking - nader aslclemente states that his belly seems tighter than normal hence he was given milk of Mg and it did not produce much Bm - last good BM- last friday - also has h/o lung ca- ahs had 36 chemo and last radiation was 6 mo ago - nader also states that pt. has become increasingly weak, has LE edema- is on 1 mg bumex - also c/o low grade fever of 100.8 last night, mild cough, no runny nose - pt. also states that he has a feeling of wearing sun glasses all the time- denies headache/blurry vision/ double vision- last eye exam - 1 mo ago Timing/Duration: yesterday Severity: mild Associated Symptoms: nausea, abdominal pain, cough, fever, loss of appetite, weakness Allergies/Adverse Reactions: No Known Drug Allergies Allergy (Verified 10/12/19 15:34) Home Medications: Folic Acid 1 mg PO DAILY 01/28/15 [History] Simvastatin [Zocor] 10 mg PO HS 01/28/15 [History] Magnesium Oxide 400 mg [Mag-Ox 400] 400 mg PO BID 04/03/15 [History] Potassium Chloride 10 Meq Tab* [Klor Con 10 MEQ] 20 meq PO BID 05/08/15 [ History] Bumetanide [Bumex] 2 mg PO BID 10/29/16 [History] Metoprolol Tartrate 25 mg [Lopressor 25MG Tab] 25 mg PO BID 02/03/17 [ History] Albuterol 2.5 mg/3 ml Neb [Proventil 2.5 mg/3 ml Neb] 2.5 mg NEB Q6HPRN PRN 11/26/17 [History] Methylprednisolone 4 mg [Medrol 4 mg] 4 mg PO DAILY 11/10/18 [History] Mycophenolate Mofetil 3 tab PO BID 08/21/19 [History] Prednisone 5 mg [Deltasone 5 mg] 10 mg PO UD 08/21/19 [History] metOLazone [Metolazone] 5 mg PO DAILY 08/21/19 [History] Hx Tetanus, Diphtheria Vaccination/Date Given: Yes Hx Influenza Vaccination/Date Given: No Hx Pneumococcal Vaccination/Date Given: Yes - Review of Systems Constitutional: Chills, Weakness Eyes: No Symptoms, Vision Changes Ears, Nose, & Throat: No Symptoms Respiratory: No Symptoms, Cough Cardiac: No Symptoms Abdominal/Gastrointestinal: Abdominal Pain, Constipation, Appetite Changes Genitourinary Symptoms: No Symptoms Musculoskeletal: No Symptoms Skin: No Symptoms Neurological: No Symptoms Psychological: No Symptoms Endocrine: No Symptoms Hematologic/Lymphatic: No Symptoms Immunological/Allergic: No Symptoms All Other Systems: Reviewed and Negative - Past Medical History Pertinent Past Medical History: Yes Neurological History: TIA ENT History: Cataracts Cardiac History: Congestive Heart Failure, Coronary Artery Disease, High Cholesterol, Hypertension, Myocardial Infarction ([place]) Respiratory History: CHF, COPD, Lung Cancer, Pneumonia Endocrine Medical History: No Pertinent History Musculoskeletal History: No Pertinent History GI Medical History: GI Bleed, Other History: Other Psycho-Social History: No Pertinent History Male Reproductive Disorders: No Pertinent History Other Medical History: some kidney failure, anemia with blood transfusion, Lung cancer left upper lobe - Past Surgical History Past Surgical History: Yes Neuro Surgical History: No Pertinent History Cardiac: Cardiac Catheterization, Cardiac Stent Respiratory: No Pertinent History Gastrointestinal: Appendectomy, Hernia Repair Genitourinary: No Pertinent History Musculoskeletal: Orthopedic Surgery Male Surgical History: No Pertinent History Other Surgical History: EGD AND COLONOSCOPY LAST DONE APRIL 2016 Received many blood transfusions during that time. kyphoplasty t8-t9, cardiac stent x 2 - Social History Smoking Status: Former smoker How long have you smoked: 50 yrs Exposure to second hand smoke: No Drug Use: none Patient Lives Alone: No - Nursing Vital Signs Nursing Vital Signs: Initial Vital Signs Temperature 99.6 F 10/12/19 15:16 Pulse Rate 65 10/12/19 15:16 Blood Pressure 156/94 10/12/19 15:16 O2 Sat by Pulse Oximetry 99 10/12/19 15:16 Pain Scale Pain Intensity 7 - Physical Exam General Appearance: no apparent distress Eye Exam: PERRL/EOMI, eyes nml inspection, No scleral icterus, No photophobia Ears, Nose, Throat Exam: normal ENT inspection, TMs normal, pharynx normal, moist mucous membranes Neck Exam: normal inspection, non-tender, supple, full range of motion Respiratory Exam: normal breath sounds, crackles/rales, rhonchi, No chest tenderness Cardiovascular Exam: regular rate/rhythm, normal heart sounds, normal peripheral pulses Gastrointestinal/Abdomen Exam: soft, normal bowel sounds, tenderness, distention Rectal Exam: deferred Back Exam: normal inspection Extremity Exam: normal inspection Neurologic Exam: alert, oriented x 3, cooperative Skin Exam: normal color, warm Lymphatic Exam: No adenopathy SpO2 Interpretation: normal SpO2: 99 O2 Delivery: Room Air Ordered Tests: Active Orders 24 hr Category Date Time Status OBSTR/ACUTE ABDOMEN SERIES Stat Exams 10/12/19 15:47 Completed BLOOD CULTURE Stat Lab 10/12/19 16:42 Received BNP [NT PRO BNP] Stat Lab 10/12/19 16:42 Completed CBC W DIFF Stat Lab 10/12/19 15:46 Completed CMP Stat Lab 10/12/19 16:42 Completed Manual Differential NC Stat Lab 10/12/19 15:46 Completed TROPONIN Q3H Lab 10/12/19 16:42 Completed TROPONIN Q3H Lab 10/12/19 19:00 Ordered TROPONIN Q3H Lab 10/12/19 22:00 Ordered UA W/RFX UR CULTURE Stat Lab 10/12/19 17:45 Received Urine Triage Profile Stat Lab 10/12/19 17:58 Completed EKG STAT RT 10/12/19 18:11 Active Lab/Rad Data: Laboratory Result Diagrams 10/12/19 15:46 10/12/19 16:42 Laboratory Results 1210/12/19 10/12/19 Range/Units 17:58 16:42 16:42 WBC (4.0-10.5) K/mm3 RBC (4.1-5.6) M/mm3 Hgb (12.5-18.0) gm/dl Hct (42-50) % MCV (78-100) fl MCH (26-32) pg MCHC (32-36) g/dl RDW (11.5-14.0) % Plt Count (150-450) K/mm3 MPV (6-9.5) fl Segmented Neutrophils (36.-66.) % Band Neutrophils (0.0-2.0) % Lymphocytes (Manual) (24-44) % Monocytes (Manual) (0.0-12.0) % Toxic Granulation Dohle Bodies Platelet Estimate (NORMAL) RBC Morphology Sodium (137-145) mmol/L Potassium (3.5-5.1) mmol/L Chloride (98-107) mmol/L Carbon Dioxide (22-30) mmol/L Anion Gap (5-15) MEQ/L BUN (9-20) mg/dL Creatinine (0.66-1.25) mg/dL Estimated GFR ML/MIN Glucose (74-106) mg/dL Calcium (8.4-10.2) mg/dL Total Bilirubin (0.2-1.3) mg/dL AST (17-59) U/L ALT (0-50) U/L Alkaline Phosphatase (38-126) U/L Troponin I 0.080 H* (0.000-0.034) ng/mL NT-Pro-B Natriuret Pep 1040 (0-1800) pg/mL Serum Total Protein (6.3-8.2) g/dL Albumin (3.5-5.0) g/dL Urine Opiates Level NEGATIVE (NEGATIVE) Ur Methadone NEGATIVE (NEGATIVE) Urine Barbiturates NEGATIVE (NEGATIVE) Ur Phencyclidine (PCP) NEGATIVE (NEGATIVE) Urine Amphetamine NEGATIVE (NEGATIVE) U Benzodiazepine Level NEGATIVE (NEGATIVE) Urine Cocaine NEGATIVE (NEGATIVE) Urine Marijuana (THC) NEGATIVE (NEGATIVE) Influenza Type A Ag (NEGATIVE) Influenza Type B Ag (NEGATIVE) RSV (PCR) (Negative) 10/12/19 10/12/19 10/12/19 Range/Units 16:42 16:40 15:46 WBC 20.8 H (4.0-10.5) K/mm3 RBC 4.45 (4.1-5.6) M/mm3 Hgb 13.1 (12.5-18.0) gm/dl Hct 40.6 L (42-50) % MCV 91.2 (78-100) fl MCH 29.4 (26-32) pg MCHC 32.3 (32-36) g/dl RDW 16.6 H (11.5-14.0) % Plt Count 289 (150-450) K/mm3 MPV 10.1 H (6-9.5) fl Segmented Neutrophils 85 H (36.-66.) % Band Neutrophils 12 H (0.0-2.0) % Lymphocytes (Manual) 2 L (24-44) % Monocytes (Manual) 1 (0.0-12.0) % Toxic Granulation 1+ Dohle Bodies 1+ Platelet Estimate NORMAL (NORMAL) RBC Morphology NORMAL Sodium 137 (137-145) mmol/L Potassium 3.1 L (3.5-5.1) mmol/L Chloride 82 L (98-107) mmol/L Carbon Dioxide 38 H (22-30) mmol/L Anion Gap 19.9 H (5-15) MEQ/L BUN 66 H (9-20) mg/dL Creatinine 2.59 H (0.66-1.25) mg/dL Estimated GFR 25.7 ML/MIN Glucose 146 H (74-106) mg/dL Calcium 9.1 (8.4-10.2) mg/dL Total Bilirubin 0.90 (0.2-1.3) mg/dL AST 31 (17-59) U/L ALT 21 (0-50) U/L Alkaline Phosphatase 184 H (38-126) U/L Troponin I (0.000-0.034) ng/mL NT-Pro-B Natriuret Pep (0-1800) pg/mL Serum Total Protein 7.5 (6.3-8.2) g/dL Albumin 3.8 (3.5-5.0) g/dL Urine Opiates Level (NEGATIVE) Ur Methadone (NEGATIVE) Urine Barbiturates (NEGATIVE) Ur Phencyclidine (PCP) (NEGATIVE) Urine Amphetamine (NEGATIVE) U Benzodiazepine Level (NEGATIVE) Urine Cocaine (NEGATIVE) Urine Marijuana (THC) (NEGATIVE) Influenza Type A Ag NEGATIVE (NEGATIVE) Influenza Type B Ag NEGATIVE (NEGATIVE) RSV (PCR) NEGATIVE (Negative) - Progress Progress Note: 10/12/19 17:29 pt. was bringing up chunks of food since arrival to ED - VSS - Influenza and RSV negative - BNP- 1040- this was 703 on 08/21/2019 - CBC- WBC 20.8 CMP- shows evidence of CKD with Cr 2.59, hypokalemia with potassium 3.1. chart review shows that pt. has CKD, last known Cr 1.74 on 08/21/2019 - troponins elevated at 0.080 likely from CKD, pt. does not have chest pain 10/12/19 18:07 10/12/19 18:09 10/12/19 18:57 CXR and abdominal X-ray were WNL Pt. was not able to swallow water during his ED course Given dysphagia, GILSON over CKD, leukocytosis- we do not have GI alarm security or surveillance monitor- hence spoke to at [facility] ED who accepted transfer - Departure Departure Disposition: Transfer Clinical Impression: Dysphagia, GILSON (acute kidney injury), Hypokalemia, Elevated troponin, Leukocytosis Condition: Fair Critical Care Time: No Referrals: SADIA GROVER MD [Primary Care Provider] -
[2019-10-12 16:50] LABS: Hematocrit 40.6 % (42-50); Hemoglobin 13.1 gm/dl (12.5-18.0); Mean Cell Volume 91.2 fl (78-100); Mean Corpuscular Hemoglobin 29.4 pg (26-32); Mean Corpuscular Hgb Concent. 32.3 g/dl (32-36); Mean Platelet Volume 10.1 fl (6-9.5); Platelet Count 289 K/mm3 (150-450); Red Blood Count 4.45 M/mm3 (4.1-5.6); Red Cell Distribution Width 16.6 % (11.5-14.0); White Blood Count 20.8 K/mm3 (4.0-10.5)
--- NOTE | 2019-10-12 17:06 | XRAY ---
Indication: Abdomen pain/distention. Comparison: Chest exam August 21, 2019. Supine and left lateral decubitus abdomen demonstrates nonspecific nonobstructed bowel gas pattern. Solid organs unremarkable. Scattered vascular calcifications. Osseous structures demonstrates osteopenia and mild lumbar degenerative changes. Single frontal chest demonstrates stable left base calcified pleural plaquing, bilateral calcified granulomas, and right hilar calcified nodes. No focal infiltrate, consolidation, large effusion. Heart is not enlarged. Bony thorax intact again with osteopenia, degenerative changes, and T8/T9 kyphoplasty. Impression: Nonacute nonobstructed abdomen. Stable nonacute one view chest with chronic features.
[2019-10-12 17:08] LABS: ALBUMIN 3.8 g/dL (3.5-5.0); ANION GAP 19.9 MEQ/L (5-15); BILIRUBIN,TOTAL 0.9 mg/dL (0.2-1.3); Calcium 9.1 mg/dL (8.4-10.2); Creatinine 1 2.59 mg/dL (0.66-1.25); Potassium 3.1 mmol/L (3.5-5.1); Total Protein 7.5 g/dL (6.3-8.2)
[2019-10-12 17:19] LABS: INFLUENZA A NEGATIVE (NEGATIVE); INFLUENZA B NEGATIVE (NEGATIVE); RESPIRATORY SYNCTIAL VIRUS NEGATIVE (Negative)
[2019-10-12 17:42] LABS: BAND 12 % (0.0-2.0); Dohle Bodies 1+; Lymphocytes 2 % (24-44); Monocyte 1 % (0.0-12.0); Neutrophils 85 % (36.-66.); Total Cells Counted 100; Toxic Granulation 1+
[2019-10-12 17:43] LABS: Platelet Estimate NORMAL (NORMAL)
[2019-10-12 18:18] LABS: Amphetamine,Urine NEGATIVE (NEGATIVE); Barbiturate,Urine NEGATIVE (NEGATIVE); Benzodiazepine,Urine NEGATIVE (NEGATIVE); Cocaine,Urine NEGATIVE (NEGATIVE); Methadone,Urine NEGATIVE (NEGATIVE); Opiate,Urine NEGATIVE (NEGATIVE); PCP,Urine NEGATIVE (NEGATIVE); THC,Urine NEGATIVE (NEGATIVE)
[2019-10-12 18:52] VITALS: BP 124/84; PULSE 56
[2019-10-12 19:02] VITALS: O2SAT 99
[2019-10-12 19:02] LABS: Appearance CLEAR (CLEAR); Bilirubin NEGATIVE (NEGATIVE); Blood SMALL Ery/ul (0-5); Glucose NEGATIVE (NEGATIVE); Hyaline Casts 0-2 /LPF (0-2); Ketones NEGATIVE (NEGATIVE); Leukocyte Esterase NEGATIVE (NEGATIVE); Mucus SLIGHT /HPF (NEGATIVE); Nitrite NEGATIVE (NEGATIVE); Protein,Urine Dip NEGATIVE (Negative); RBC 0-2 /HPF (0-2); Urobilinogen NEGATIVE mg/dL (0-1); WBC 0-2 /HPF (0-5)
== END 2019-10-12 19:58 | disposition short-term general hospital (02) ==
LOC: ED 15:08
DX: R13.10 Dysphagia, unspecified (principal); N17.9 Acute kidney failure, unspecified; E87.6 Hypokalemia; R74.8 Abnormal levels of other serum enzymes; D72.829 Elevated white blood cell count, unspecified; I50.9 Heart failure, unspecified; I10 Essential (primary) hypertension; J44.9 Chronic obstructive pulmonary disease, unspecified; E78.00 Pure hypercholesterolemia, unspecified; I25.10 Atherosclerotic heart disease of native coronary artery without angina pectoris; Z85.118 Personal history of other malignant neoplasm of bronchus and lung; Z87.891 Personal history of nicotine dependence; Z79.899 Other long term (current) drug therapy; Z86.73 Personal history of transient ischemic attack (TIA), and cerebral infarction without residual deficits; I25.2 Old myocardial infarction
CPT/HCPCS: 36000; 36415; 74022; 80053; 80307; 81001; 83880; 84484; 85025; 87040; 87631; 99285

== ENCOUNTER 2019-11-12 12:00 | Inpatient (IN) | payer MEDICARE ==
[2019-11-12] MEDS ORDERED: TYLENOL 325 MG PO PRN (12:45)
[2019-11-12 13:51] LABS: BASOPHIL % 0.2 % (0.0-0.4); Basophil (Absolute #) 0.02 (0-0.4); Eosinophil % 0.1 % (0.00-5.0); Eosinophil (Absolute #) 0.01 (0-0.5); Hematocrit 35.4 % (42-50); Hemoglobin 11.3 gm/dl (12.5-18.0); Lymphocyte (Absolute #) 0.68 (1.0-4.6); Lymphocytes % 6.1 % (24.0-44.0); Mean Cell Volume 97.5 fl (78-100); Mean Corpuscular Hemoglobin 31.1 pg (26-32); Mean Corpuscular Hgb Concent. 31.9 g/dl (32-36); Monocyte (Absolute #) 0.62 (0.0-1.3); Monocytes % 5.6 % (0.0-12.0); Platelet Count 244 K/mm3 (150-450); Red Blood Count 3.63 M/mm3 (4.1-5.6); Red Cell Distribution Width 18.5 % (11.5-14.0); White Blood Count 11.1 K/mm3 (4.0-10.5)
[2019-11-12 14:17] LABS: ALBUMIN 3.9 g/dL (3.5-5.0); ANION GAP 14.9 MEQ/L (5-15); BILIRUBIN,TOTAL 0.6 mg/dL (0.2-1.3); Calcium 9.2 mg/dL (8.4-10.2); Creatinine 1 1.54 mg/dL (0.66-1.25); Potassium 4.4 mmol/L (3.5-5.1); Total Protein 8.1 g/dL (6.3-8.2)
[2019-11-12] MEDS: Sodium Chloride 0.9% 1000 ML 1,000 ML IV SCH (14:27)
--- NOTE | 2019-11-12 15:17 | XRAY ---
Indication: Weakness. Comparison: October 12, 2019. Portable AP/lateral chest unchanged again demonstrating extensive left base calcified pleural plaquing, bilateral calcified granulomas, and right hilar calcified nodes. Remaining lungs are clear. Heart is not enlarged for AP portable technique. Bony thorax again demonstrate osteopenia, degenerative changes, and T8/T9 kyphoplasty. Impression: Stable nonacute chest with chronic features.
[2019-11-12] MEDS ORDERED: PROVENTIL 2.5 MG/3 ML NEB IH PRN (15:57)
[2019-11-12] MEDS ORDERED: NON-FORMULARY ITEM (Cyanocobalamin (Vitamin B-12) [Vitamin B-12] 1,000 MCG) IM SCH (16:00)
[2019-11-12] MEDS ORDERED: MEDICATION INTERVENTION PO SCH ×2 (16:15→22:00)
[2019-11-12 16:26] LABS: Appearance CLEAR (CLEAR); Bilirubin NEGATIVE (NEGATIVE); Blood NEGATIVE Ery/ul (0-5); Glucose NEGATIVE (NEGATIVE); Ketones NEGATIVE (NEGATIVE); Leukocyte Esterase NEGATIVE (NEGATIVE); Nitrite NEGATIVE (NEGATIVE); Protein,Urine Dip 30 (Negative); Specific Gravity 1.019 (1.005-1.025); Urobilinogen NEGATIVE mg/dL (0-1)
[2019-11-12] MEDS: BUMEX 1 MG PO SCH (17:05)
[2019-11-12] MEDS: Cyanocobalamin B-12 1000 MCG/ML IM SCH (17:32)
[2019-11-12] MEDS: MORPHINE SULFATE 4 MG INJ IV PRN (18:27)
[2019-11-12] MEDS ORDERED: TYLENOL EXTRA STRENGTH 500 MG PO PRN (19:22)
[2019-11-12] MEDS: MAG-OX 400 PO SCH (21:11)
[2019-11-12] MEDS: Lopressor 25MG Tab PO SCH (21:11)
[2019-11-12] MEDS: Zocor 10MG PO SCH (21:11)
[2019-11-12] MEDS: Klor Con 10 MEQ PO SCH (21:12)
[2019-11-12] MEDS: Apresoline 25 MG TABLET PO SCH (21:12)
[2019-11-12] MEDS: NovoLIN R SQ PRN (21:25)
[2019-11-12] MEDS ORDERED: MYCOPHENOLATE MOFETIL PO SCH (22:00)
[2019-11-12] MEDS ORDERED: NON-FORMULARY ITEM (Bumetanide [Bumex] 2 MG) PO SCH (22:00)
[2019-11-12] MEDS ORDERED: NON-FORMULARY ITEM (Hydralazine Hcl [Hydralazine Hcl] 50 MG) PO SCH (22:00)
[2019-11-13] MEDS: MORPHINE SULFATE 4 MG INJ IV PRN ×2 (03:21→07:52)
--- NOTE | 2019-11-13 07:42 | PCM.NOTE ---
Date and Time: 11/13/19739 Subjective Assessment: doing ok - Review of Systems Constitutional: No Fever, No Chills Eyes: No Symptoms Ears, Nose, & Throat: No Symptoms Respiratory: No Cough, No Short Of Breath Cardiac: Edema, Orthopnea, No Chest Pain, No Syncope Abdominal/Gastrointestinal: No Abdominal Pain, No Nausea, No Vomiting, No Diarrhea Genitourinary Symptoms: No Dysuria Musculoskeletal: No Back Pain, No Neck Pain Skin: No Rash Neurological: Focal Weakness (left lower extrimity), Gait Changes, No Dizziness , No Sensory Changes Psychological: No Symptoms Endocrine: No Symptoms Hematologic/Lymphatic: No Symptoms Immunological/Allergic: No Symptoms Objective Exam General Appearance: no apparent distress, alert Neurologic Exam: alert, oriented x 3, cooperative, normal mood/affect, nml cerebellar function, sensation nml, No motor deficits Skin Exam: normal color, warm, dry Eye Exam: PERRL, EOMI, eyes nml inspection Ears, Nose, Throat Exam: normal ENT inspection, pharynx normal, moist mucous membranes Neck Exam: normal inspection, non-tender, supple, full range of motion Respiratory Exam: normal breath sounds, diminished breath sounds, crackles/rales , rhonchi, wheezing, No respiratory distress Cardiovascular Exam: regular rate/rhythm, normal heart sounds Gastrointestinal/Abdomen Exam: soft, No tenderness, No mass Extremity Exam: normal inspection, normal range of motion Back Exam: normal inspection, normal range of motion, No CVA tenderness, No vertebral tenderness Male Genitalia Exam: deferred Rectal Exam: deferred OBJECTIVE DATA Vital Signs: Vital Signs - 24 hr Temp Pulse Resp BP Pulse Ox 11/13/19 04:00 99.5 F 94 H 20 140/79 94 L 11/13/19 00:00 99.1 F 80 17 149/69 98 11/12/19 19:59 100.1 F 90 17 111/55 98 11/12/19 17:40 88 16 96 11/12/19 16:00 100.8 F 93 H 22 132/60 97 11/12/19 13:50 98.8 F 80 20 156/68 98 11/12/19 13:09 98.8 F 80 20 156/68 98 Pain Assessment - Last Documented Pain Intensity 8 Pain Scale Used 0-10 Pain Scale Intake and Output: Intake & Output 11/10/19 11/11/19 11/12/1911/13/20 11:59 11:59 11:59 11:59 Intake Total 2332 Output Total 950 Balance 1382 Weight 75.6 kg Lab Results: Accuchecks Date 11/12/19 Accucheck Value: 270 Accucheck Value: 129 Lab Results-Last 24 Hours 11/12/19 11/12/19 11/12/19 Range/Units 13:05 13:05 16:18 WBC 11.1 H (4.0-10.5) K/mm3 RBC 3.63 L (4.1-5.6) M/mm3 Hgb 11.3 L (12.5-18.0) gm/dl Hct 35.4 L (42-50) % MCV 97.5 (78-100) fl MCH 31.1 (26-32) pg MCHC 31.9 L (32-36) g/dl RDW 18.5 H (11.5-14.0) % Plt Count 244 (150-450) K/mm3 MPV 9.0 (7.5-11.0) fl Gran % 88.0 H (36.0-66.0) % Eos # (Auto) 0.01 (0-0.5) Absolute Lymphs (auto) 0.68 L (1.0-4.6) Absolute Monos (auto) 0.62 (0.0-1.3) Lymphocytes % 6.1 L (24.0-44.0) % Monocytes % 5.6 (0.0-12.0) % Eosinophils % 0.1 (0.00-5.0) % Basophils % 0.2 (0.0-0.4) % Absolute Granulocytes 9.80 H (1.4-6.9) Basophils # 0.02 (0-0.4) Sodium 140 (137-145) mmol/L Potassium 4.4 (3.5-5.1) mmol/L Chloride 99 (98-107) mmol/L Carbon Dioxide 31 H (22-30) mmol/L Anion Gap 14.9 (5-15) MEQ/L BUN 26 H (9-20) mg/dL Creatinine 1.54 H (0.66-1.25) mg/dL Estimated GFR 46.7 ML/MIN Glucose 121 H (74-106) mg/dL Hemoglobin A1c (4.5-6.0) % Calcium 9.2 (8.4-10.2) mg/dL Total Bilirubin 0.60 (0.2-1.3) mg/dL AST 22 (17-59) U/L ALT 16 (0-50) U/L Alkaline Phosphatase 155 H (38-126) U/L NT-Pro-B Natriuret Pep 3860 H (0-1800) pg/mL Serum Total Protein 8.1 (6.3-8.2) g/dL Albumin 3.9 (3.5-5.0) g/dL Urine Color YELLOW (YELLOW) Urine Appearance CLEAR (CLEAR) Urine pH 6.0 (5-6) Ur Specific [place] 1.019 (1.005-1.025) Urine Protein 30 (Negative) Urine Ketones NEGATIVE (NEGATIVE) Urine Blood NEGATIVE (0-5) Marcelino/ul Urine Nitrite NEGATIVE (NEGATIVE) Urine Bilirubin NEGATIVE (NEGATIVE) Urine Urobilinogen NEGATIVE (0-1) mg/dL Ur Leukocyte Esterase NEGATIVE (NEGATIVE) Urine WBC (Auto) NONE (0-5) /HPF Urine RBC (Auto) NONE (0-2) /HPF U Epithel Cells (Auto) NONE (FEW) /HPF Urine Bacteria (Auto) NONE (NEGATIVE) /HPF Urine Culture Reflexed NO (NO) Urine Glucose NEGATIVE (NEGATIVE) mg/dL 11/12/19 Range/Units Unknown WBC (4.0-10.5) K/mm3 RBC (4.1-5.6) M/mm3 Hgb (12.5-18.0) gm/dl Hct (42-50) % MCV (78-100) fl MCH (26-32) pg MCHC (32-36) g/dl RDW (11.5-14.0) % Plt Count (150-450) K/mm3 MPV (7.5-11.0) fl Gran % (36.0-66.0) % Eos # (Auto) (0-0.5) Absolute Lymphs (auto) (1.0-4.6) Absolute Monos (auto) (0.0-1.3) Lymphocytes % (24.0-44.0) % Monocytes % (0.0-12.0) % Eosinophils % (0.00-5.0) % Basophils % (0.0-0.4) % Absolute Granulocytes (1.4-6.9) Basophils # (0-0.4) Sodium (137-145) mmol/L Potassium (3.5-5.1) mmol/L Chloride (98-107) mmol/L Carbon Dioxide (22-30) mmol/L Anion Gap (5-15) MEQ/L BUN (9-20) mg/dL Creatinine (0.66-1.25) mg/dL Estimated GFR ML/MIN Glucose (74-106) mg/dL Hemoglobin A1c 6.14 H (4.5-6.0) % Calcium (8.4-10.2) mg/dL Total Bilirubin (0.2-1.3) mg/dL AST (17-59) U/L ALT (0-50) U/L Alkaline Phosphatase (38-126) U/L NT-Pro-B Natriuret Pep (0-1800) pg/mL Serum Total Protein (6.3-8.2) g/dL Albumin (3.5-5.0) g/dL Urine Color (YELLOW) Urine Appearance (CLEAR) Urine pH (5-6) Ur Specific [place] (1.005-1.025) Urine Protein (Negative) Urine Ketones (NEGATIVE) Urine Blood (0-5) Marcelino/ul Urine Nitrite (NEGATIVE) Urine Bilirubin (NEGATIVE) Urine Urobilinogen (0-1) mg/dL Ur Leukocyte Esterase (NEGATIVE) Urine WBC (Auto) (0-5) /HPF Urine RBC (Auto) (0-2) /HPF U Epithel Cells (Auto) (FEW) /HPF Urine Bacteria (Auto) (NEGATIVE) /HPF Urine Culture Reflexed (NO) Urine Glucose (NEGATIVE) mg/dL Radiology Exams: Radiology Procedures Category Date Time Status CHEST 2 VIEWS (PA AND LAT) Stat Exams 11/12/19 15:17 Completed Assessment/Plan (1) Chronic renal disease, stage 4, severely decreased glomerular filtration rate (GFR) between 15-29 mL/min/1.73 square meter Current Visit: Yes Status: Acute Code(s): N18.4 - CHRONIC KIDNEY DISEASE, STAGE 4 (SEVERE) (2) CAD (coronary artery disease) Current Visit: Yes Status: Chronic Qualifiers: Coronary Disease-Associated Artery/Lesion type: [place] artery [place] vs. transplanted heart: [place] heart Associated angina: without angina Qualified Code(s): I25.10 - Atherosclerotic heart disease of [place] coronary artery without angina pectoris Code(s): I25.10 - ATHSCL HEART DISEASE OF [place] CORONARY ARTERY W/O ANG PCTRS (3) COPD (chronic obstructive pulmonary disease) Current Visit: Yes Status: Chronic Qualifiers: COPD type: chronic bronchitis (4) HTN (hypertension), benign Current Visit: Yes Status: Chronic Code(s): I10 - ESSENTIAL (PRIMARY) HYPERTENSION (5) CHF (congestive heart failure), NYHA class III Current Visit: Yes Status: Chronic Qualifiers: Congestive heart failure chronicity: acute on chronic Code(s): I50.9 - HEART FAILURE, UNSPECIFIED
[2019-11-13] MEDS: PROVENTIL 2.5 MG/3 ML NEB IH SCH (09:21)
[2019-11-13] MEDS: ROCEPHIN 1 Gm-D5w 50 ml Bag** 1 G/50 ML IVPB IV SCH (09:53)
[2019-11-13] MEDS: PATIENT OWN MEDICATION PO SCH ×2 (09:53→21:04)
[2019-11-13] MEDS: MAG-OX 400 PO SCH ×2 (09:54→21:04)
[2019-11-13] MEDS: BUMEX 1 MG PO SCH ×2 (09:54→17:00)
[2019-11-13] MEDS: MEDROL 4 MG PO SCH (09:54)
[2019-11-13] MEDS: Lopressor 25MG Tab PO SCH ×2 (09:54→21:04)
[2019-11-13] MEDS: Apresoline 25 MG TABLET PO SCH ×2 (09:54→21:04)
[2019-11-13] MEDS: FOLATE 1 MG PO SCH (09:54)
[2019-11-13] MEDS: Klor Con 10 MEQ PO SCH ×2 (09:54→21:03)
[2019-11-13] MEDS: Cyanocobalamin B-12 1000 MCG/ML IM SCH (09:55)
[2019-11-13] MEDS ORDERED: VITAMIN D2 PO SCH ×2 (10:00)
[2019-11-13 10:17] LABS: ALBUMIN 3.1 g/dL (3.5-5.0); ANION GAP 9.5 MEQ/L (5-15); BILIRUBIN,TOTAL 0.4 mg/dL (0.2-1.3); Calcium 8.5 mg/dL (8.4-10.2); Creatinine 1 1.53 mg/dL (0.66-1.25); MAGNESIUM 2.1 mg/dL (1.6-2.3); Total Protein 6.6 g/dL (6.3-8.2)
[2019-11-13] MEDS: NovoLIN R SQ PRN (17:05)
[2019-11-13] MEDS: Sodium Chloride 0.9% 1000 ML 1,000 ML IV SCH (17:11)
--- NOTE | 2019-11-13 20:41 | XRAY ---
Indication: Weakness and vision change. Multiple contiguous axial images obtained through the head without contrast. Comparison: None. There is MRI brain November 19, 2018. There is global atrophy and mild periventricular degenerative micro-ischemia bilaterally within normal limits for patient's age. Remote lacunar infarct left cerebellum. No acute intracranial hemorrhage, abnormal extra-axial fluid collection, or mass effect. Fourth ventricle is midline without hydrocephalus. Bony calvarium intact. Visualized paranasal sinuses and mastoid air cells are clear. Impression: Again nonacute senile brain. Comment: Preliminary interpretation was made by [facility]. No critical discrepancy.
[2019-11-13] MEDS: Zocor 10MG PO SCH (21:04)
--- NOTE | 2019-11-14 06:28 | PCM.NOTE ---
Date and Time: 11/14/19626 Subjective Assessment: doing better - Review of Systems Constitutional: No Fever, No Chills Eyes: No Symptoms Ears, Nose, & Throat: No Symptoms Respiratory: Orthopnea, Short Of Breath, No Cough Cardiac: No Chest Pain, No Edema, No Syncope Abdominal/Gastrointestinal: No Abdominal Pain, No Nausea, No Vomiting, No Diarrhea Genitourinary Symptoms: No Dysuria Musculoskeletal: No Back Pain, No Neck Pain Skin: No Rash Neurological: No Dizziness, No Focal Weakness, No Sensory Changes Psychological: No Symptoms Endocrine: No Symptoms Hematologic/Lymphatic: No Symptoms Immunological/Allergic: No Symptoms Objective Exam General Appearance: no apparent distress, alert Neurologic Exam: alert, oriented x 3, cooperative, normal mood/affect, nml cerebellar function, sensation nml, No motor deficits Skin Exam: normal color, warm, dry Eye Exam: PERRL, EOMI, eyes nml inspection Ears, Nose, Throat Exam: normal ENT inspection, pharynx normal, moist mucous membranes Neck Exam: normal inspection, non-tender, supple, full range of motion Respiratory Exam: normal breath sounds, rhonchi, wheezing, No respiratory distress Cardiovascular Exam: regular rate/rhythm, normal heart sounds Gastrointestinal/Abdomen Exam: soft, No tenderness, No mass Extremity Exam: normal inspection, normal range of motion Back Exam: normal inspection, normal range of motion, No CVA tenderness, No vertebral tenderness Male Genitalia Exam: deferred Rectal Exam: deferred OBJECTIVE DATA Vital Signs: Vital Signs - 24 hr Temp Pulse Resp BP Pulse Ox 11/14/19 04:00 98.5 F 97 H 20 184/79 95 11/14/19 00:00 99.7 F 91 H 18 123/59 97 11/13/19 20:32 96 11/13/19 19:30 98.2 F 83 18 133/70 96 11/13/19 16:00 98.3 F 101 H 18 132/60 95 11/13/19 12:00 99.2 F 89 18 126/59 91 L 11/13/19 09:21 84 18 97 11/13/19 07:47 98.3 F 87 20 168/73 97 Pain Assessment - Last Documented Pain Intensity 0 Pain Scale Used FLACC Intake and Output: Intake & Output 11/11/19 11/12/19 11/13/19 11/14/19 11:59 11:59 11:59 11:59 Intake Total 7462 4383 Output Total 5916 3326 Balance 1122 -1164 Weight 75.6 kg 75.4 kg Lab Results: Accuchecks Date 11/13/19 Date 11/13/19 Date 11/13/19 Date 11/13/19 Time 21:30 Time 16:30 Time 11:30 Time 07:30 Accucheck Value: 139 Accucheck Value: 314 Accucheck Value: 125 Accucheck Value: 118 Lab Results-Last 24 Hours 11/13/19 Range/Units 09:15 Sodium 139 (137-145) mmol/L Potassium 4.0 (3.5-5.1) mmol/L Chloride 100 (98-107) mmol/L Carbon Dioxide 33 H (22-30) mmol/L Anion Gap 9.5 (5-15) MEQ/L BUN 25 H (9-20) mg/dL Creatinine 1.53 H (0.66-1.25) mg/dL Estimated GFR 47.0 ML/MIN Glucose 114 H (74-106) mg/dL Calcium 8.5 (8.4-10.2) mg/dL Magnesium 2.1 (1.6-2.3) mg/dL Total Bilirubin 0.40 (0.2-1.3) mg/dL AST 16 L (17-59) U/L ALT 13 (0-50) U/L Alkaline Phosphatase 121 (38-126) U/L Serum Total Protein 6.6 (6.3-8.2) g/dL Albumin 3.1 L (3.5-5.0) g/dL Radiology Exams: Radiology Procedures Category Date Time Status CHEST 2 VIEWS (PA AND LAT) Stat Exams 11/12/19 15:17 Completed HEAD WITHOUT CONTRAST [CT] Routine Exams 11/13/19 08:31 Completed Assessment/Plan (1) Chronic renal disease, stage 4, severely decreased glomerular filtration rate (GFR) between 15-29 mL/min/1.73 square meter Current Visit: Yes Status: Acute Assessment & Plan: Chief Complaint Diagnosis WEAKNESS, LEFT LOWER EXTREMITY WEAKNESS Allergies Allergy/AdvReac Type Severity Reaction Status Date / Time No Known Drug Allergies Allergy Verified 11/12/19 13:44 Vital Signs (Last 24 hours) Temp Pulse Resp BP Pulse Ox 11/14/19 04:00 98.5 F 97 H 20 184/79 95 01/26/20 00:00 99.7 F 91 H 18 123/59 97 11/13/19 20:32 96 11/13/19 19:30 98.2 F 83 18 133/70 96 11/13/19 16:00 98.3 F 101 H 18 132/60 95 11/13/19 12:00 99.2 F 89 18 126/59 91 L 11/13/19 09:21 84 18 97 11/13/19 07:47 98.3 F 87 20 168/73 97 Home Medications Medication Instructions Recorded Confirmed Last Taken Type Cyanocobalamin (Vitamin B-12) 1,000 mcg IM UD 11/12/19 11/12/19 11/11/19 History [Vitamin B-12] Ergocalciferol (Vitamin D2) 50,000 unit PO UD 11/12/19 11/12/19 Unknown History [Vitamin D2] Hydralazine HCl 50 mg PO BID 11/12/19 11/12/19 11/12/19 History Current Medications Generic Name Dose Route Start Last Admin Trade Name Freq PRN Reason Stop Dose Admin Acetaminophen 500 mg 11/12/19 19:22 Tylenol Extra Strength 500 Mg PO 12/12/19 19:21 Q4HPRN PRN PAIN, FEVER, HEADACHE Albuterol Sulfate 2.5 mg 11/12/19 15:57 Proventil 2.5 Mg/3 Ml Neb IH 12/12/19 15:56 Q6HPRN PRN SHORTNESS OF BREATH Albuterol Sulfate 2.5 mg 11/13/19 10:00 11/13/19 09:21 Proventil 2.5 Mg/3 Ml Neb IH 12/13/19 09:59 2.5 mg QAM SIMBA Administration Bumetanide 2 mg 11/12/19 17:00 11/13/19 17:00 Bumex 1 Mg PO 12/12/19 16:59 2 mg BID DIURETIC SIMBA Administration Cyanocobalamin 1,000 mcg 11/12/19 17:00 11/13/19 09:55 Cyanocobalamin B-12 1000 Mcg/Ml IM 11/14/19 10:01 1,000 mcg DAILY SIMBA Administration Cyanocobalamin 1,000 mcg 11/21/19 10:00 Cyanocobalamin B-12 1000 Mcg/Ml IM 12/12/19 10:01 Q7D SIMBA Ergocalciferol 50,000 unit 11/13/19 10:00 11/13/19 09:54 Vitamin D2 PO 12/13/19 09:59 50,000 unit Q7D SIMBA Administration Folic Acid 1 mg 11/13/19 10:00 11/13/19 09:54 Folate 1 Mg PO 12/13/19 09:59 1 mg DAILY SIMBA Administration Hydralazine HCl 50 mg 11/12/19 22:00 11/13/19 21:04 Apresoline 25 Mg Tablet PO 12/12/19 21:59 50 mg BID SIMBA Administration Sodium Chloride 1,000 mls @ 50 mls/hr 11/12/19 12:45 11/13/19 17:11 Sodium Chloride 0.9% 1000 Ml IV 12/12/19 12:44 50 mls/hr .Q20H SIMBA Administration Ceftriaxone Sodium/Dextrose 1 g in 50 mls @ 100 mls/hr 11/13/19 10:00 09:53 Rocephin 1 Gm-D5w 50 Ml Bag IV 12/13/19 09:59 100 mls/hr Q24H10 SIMBA Administration Insulin Human Regular 0 unit 11/12/19 12:45 11/13/19 17:05 Novolin R SQ 12/12/19 12:44 6 unit UD PRN Administration ACCUCHEK Magnesium Oxide 400 mg 11/12/19 22:00 11/13/19 21:04 Mag-Ox 400 PO 12/12/19 21:59 400 mg BID SIMBA Administration Methylprednisolone 4 mg 11/13/19 10:00 11/13/19 09:54 Medrol 4 Mg PO 12/13/19 09:59 4 mg DAILY SIMBA Administration Metoprolol Tartrate 25 mg 11/12/19 22:00 11/13/19 21:04 Lopressor 25mg Tab PO 12/12/19 21:59 25 mg BID SIMBA Administration Morphine Sulfate 4 mg 11/12/19 18:24 11/13/19 07:52 Morphine Sulfate 4 Mg Inj IV 11/17/19 18:23 4 mg Q4H PRN PRN Administration PAIN Mycophenolate 500mg 3 each 11/13/19 10:00 11/13/19 21:04 Tablet PO 12/13/19 09:59 3 each BID SIMBA Administration Potassium Chloride 20 meq 11/12/19 22:00 11/13/19 21:03 Klor Con 10 Meq PO 12/12/19 21:59 20 meq BID SIMBA Administration Simvastatin 10 mg 11/12/19 22:00 11/13/19 21:04 Zocor 10mg PO 12/12/19 21:59 10 mg HS SIMBA Administration Discontinued Medications Generic Name Dose Route Start Last Admin Trade Name Freq PRN Reason Stop Dose Admin Acetaminophen 325 mg 11/12/19 12:45 11/12/19 17:33 Tylenol 325 Mg PO 12/12/19 12:44 325 mg Q4H PRN PRN Administration PAIN, FEVER, HEADACHE Ergocalciferol 0 unit 11/13/19 10:00 Vitamin D2 PO 12/13/19 09:59 UD SIMBA Miscellaneous Information 1 each 11/12/19 16:15 Medication Intervention PO 12/12/19 16:14 .RN TO CHECK ON SIMBA Miscellaneous Information 1 each 11/12/19 22:00 11/12/19 21:11 Medication Intervention PO 12/12/19 21:59 3 each BID SIMBA Administration Intake & Output (Last 24 hours) 11/11/19 11/12/19 11/13/19 11/14/19 11:59 11:59 11:59 11:59 Intake Total 2572 1986 Output Total 1450 3150 Balance 1122 -1164 Weight 75.6 kg 75.4 kg Laboratory Results (Last 24 hours) 11/13/19 09:15 Sodium 139 Potassium 4.0 Chloride 100 Carbon Dioxide 33 H Anion Gap 9.5 BUN 25 H Creatinine 1.53 H Estimated GFR 47.0 Glucose 114 H Calcium 8.5 Magnesium 2.1 Total Bilirubin 0.40 AST 16 L ALT 13 Alkaline Phosphatase 121 Serum Total Protein 6.6 Albumin 3.1 L Orders (Last 24 hours) Category Date Time Status Daily Weight [Weight,Daily] 0600 Care 11/14/19 07:00 Active HEAD WITHOUT CONTRAST [CT] Routine Exams 11/13/19 08:31 Completed CMP Routine Lab 11/13/19 09:15 Completed MAGNESIUM Routine Lab 11/13/19 09:15 Completed Albuterol 2.5 mg/3 ml Neb [Proventil 2.5 mg/3 ml Neb Med 11/13/19 10:00 Active ] 2.5 mg IH QAM Ceftriaxone 1 GM/50 ML PREMIX* [ROCEPHIN 1 Gm-D5w 50 ml Med 11/13/19 10:00 Active Bag] 1 g in 50 ml IV Q24H10 Cyanocobalamin 1000 Mcg/ml [Cyanocobalamin B-12 1000 Med 11/21/19 10:00 Active MCG/ML] 1,000 mcg IM Q7D Ergocalciferol (Vitamin D2) [Vitamin D2] Med 11/13/19 10:00 Active 50,000 unit PO Q7D Ergocalciferol (Vitamin D2) [Vitamin D2] Med 11/13/19 10:00 Discontinued See Dose Instructions PO UD Folic Acid 1 mg [Folate 1 mg] Med 11/13/19 10:00 Active 1 mg PO DAILY Methylprednisolone 4 mg [Medrol 4 mg] Med 11/13/19 10:00 Active 4 mg PO DAILY Patient Own Med [Patient Own Medication] Med 11/13/19 10:00 Active 3 each PO BID PT Eval & Treat (MD Order) ROUTINE PT 11/13/19 08:33 Active Patient Care Notes (Last 24 hours) 11/14/19 06:16 Nursing Note by Clarice Parikh Dr in to see patient today. Advised MD of edema to BLE, increasing tachycardia and and slight wheezing auscultated to posterior lungs. Received new order to start daily weights and continue to monitor. Initialized on 11/14/19 06:16 - END OF NOTE Code(s): N18.4 - CHRONIC KIDNEY DISEASE, STAGE 4 (SEVERE) (2) CAD (coronary artery disease) Current Visit: Yes Status: Chronic Qualifiers: Coronary Disease-Associated Artery/Lesion type: [place] artery [place] vs. transplanted heart: [place] heart Associated angina: without angina Qualified Code(s): I25.10 - Atherosclerotic heart disease of [place] coronary artery without angina pectoris Code(s): I25.10 - ATHSCL HEART DISEASE OF [place] CORONARY ARTERY W/O ANG PCTRS (3) COPD (chronic obstructive pulmonary disease) Current Visit: Yes Status: Chronic Qualifiers: COPD type: chronic bronchitis (4) HTN (hypertension), benign Current Visit: Yes Status: Chronic Code(s): I10 - ESSENTIAL (PRIMARY) HYPERTENSION (5) CHF (congestive heart failure), NYHA class III Current Visit: Yes Status: Chronic Qualifiers: Congestive heart failure chronicity: acute on chronic Code(s): I50.9 - HEART FAILURE, UNSPECIFIED
[2019-11-14] MEDS: PROVENTIL 2.5 MG/3 ML NEB IH SCH (07:25)
[2019-11-14] MEDS ORDERED: Cardizem CD 120 MG ONE (07:53)
[2019-11-14] MEDS: Cardizem CD 120 MG PO SCH (07:54)
[2019-11-14] MEDS: ECOTRIN 81 MG PO SCH (08:32)
[2019-11-14] MEDS: Lopressor 25MG Tab PO SCH ×2 (08:32→22:31)
[2019-11-14 08:38] LABS: ALBUMIN 3.1 g/dL (3.5-5.0); BILIRUBIN,TOTAL 0.4 mg/dL (0.2-1.3); Calcium 8.5 mg/dL (8.4-10.2); Creatinine 1 1.44 mg/dL (0.66-1.25); Potassium 3.6 mmol/L (3.5-5.1); Total Protein 6.8 g/dL (6.3-8.2)
[2019-11-14 08:58] LABS: BASOPHIL % 0.1 % (0.0-0.4); Basophil (Absolute #) 0.01 (0-0.4); Eosinophil % 0.1 % (0.00-5.0); Eosinophil (Absolute #) 0.01 (0-0.5); Hemoglobin 9.8 gm/dl (12.5-18.0); Lymphocyte (Absolute #) 1.25 (1.0-4.6); Lymphocytes % 10.4 % (24.0-44.0); Mean Cell Volume 98.1 fl (78-100); Mean Corpuscular Hgb Concent. 31.6 g/dl (32-36); Mean Platelet Volume 9.1 fl (7.5-11.0); Monocytes % 4.2 % (0.0-12.0); Neutrophil % 85.2 % (36.0-66.0); Platelet Count 252 K/mm3 (150-450); Red Blood Count 3.16 M/mm3 (4.1-5.6)
[2019-11-14] MEDS: BUMEX 1 MG PO SCH ×2 (10:14→17:30)
[2019-11-14] MEDS: Klor Con 10 MEQ PO SCH ×2 (10:14→22:31)
[2019-11-14] MEDS: ROCEPHIN 1 Gm-D5w 50 ml Bag** 1 G/50 ML IVPB IV SCH (10:14)
[2019-11-14] MEDS: MEDROL 4 MG PO SCH (10:14)
[2019-11-14] MEDS: MAG-OX 400 PO SCH ×2 (10:15→22:31)
[2019-11-14] MEDS: Apresoline 25 MG TABLET PO SCH ×2 (10:15→22:31)
[2019-11-14] MEDS: FOLATE 1 MG PO SCH (10:15)
[2019-11-14] MEDS: Cyanocobalamin B-12 1000 MCG/ML IM SCH (10:15)
[2019-11-14] MEDS: PATIENT OWN MEDICATION PO SCH ×2 (10:16→22:30)
[2019-11-14] MEDS: MORPHINE SULFATE 4 MG INJ IV PRN (18:31)
[2019-11-14] MEDS: NovoLIN R SQ PRN (18:32)
[2019-11-14] MEDS: Zocor 10MG PO SCH (22:31)
[2019-11-15] MEDS: MORPHINE SULFATE 4 MG INJ IV PRN ×2 (06:47→22:44)
[2019-11-15] MEDS: PROVENTIL 2.5 MG/3 ML NEB IH SCH (07:20)
[2019-11-15] MEDS: Klor Con 10 MEQ PO SCH ×2 (10:07→22:36)
[2019-11-15] MEDS: Apresoline 25 MG TABLET PO SCH ×2 (10:08→22:36)
[2019-11-15] MEDS: MEDROL 4 MG PO SCH (10:08)
[2019-11-15] MEDS: FOLATE 1 MG PO SCH (10:08)
[2019-11-15] MEDS: Cardizem CD 120 MG PO SCH (10:08)
[2019-11-15] MEDS: PATIENT OWN MEDICATION PO SCH ×2 (10:08→22:35)
[2019-11-15] MEDS: BUMEX 1 MG PO SCH ×2 (10:08→18:19)
[2019-11-15] MEDS: Lopressor 25MG Tab PO SCH ×2 (10:08→22:36)
[2019-11-15] MEDS: ECOTRIN 81 MG PO SCH (10:08)
[2019-11-15] MEDS: MAG-OX 400 PO SCH ×2 (10:08→22:36)
[2019-11-15] MEDS: ROCEPHIN 1 Gm-D5w 50 ml Bag** 1 G/50 ML IVPB IV SCH (10:10)
--- NOTE | 2019-11-15 13:20 | PCM.NOTE ---
Date and Time: 11/15/19 1319 Subjective Assessment: doing ok - Review of Systems Constitutional: No Fever, No Chills Eyes: No Symptoms Ears, Nose, & Throat: No Symptoms Respiratory: No Cough, No Short Of Breath Cardiac: No Chest Pain, No Edema, No Syncope Abdominal/Gastrointestinal: No Abdominal Pain, No Nausea, No Vomiting, No Diarrhea Genitourinary Symptoms: No Dysuria Musculoskeletal: No Back Pain, No Neck Pain Skin: No Rash Neurological: No Dizziness, No Focal Weakness, No Sensory Changes Psychological: No Symptoms Endocrine: No Symptoms Hematologic/Lymphatic: No Symptoms Immunological/Allergic: No Symptoms Objective Exam General Appearance: no apparent distress, alert Neurologic Exam: alert, oriented x 3, cooperative, normal mood/affect, nml cerebellar function, sensation nml, No motor deficits Skin Exam: normal color, warm, dry Eye Exam: PERRL, EOMI, eyes nml inspection Ears, Nose, Throat Exam: normal ENT inspection, pharynx normal, moist mucous membranes Neck Exam: normal inspection, non-tender, supple, full range of motion Respiratory Exam: normal breath sounds, lungs clear, No respiratory distress Cardiovascular Exam: regular rate/rhythm, normal heart sounds Gastrointestinal/Abdomen Exam: soft, No tenderness, No mass Extremity Exam: normal inspection, normal range of motion Back Exam: normal inspection, normal range of motion, No CVA tenderness, No vertebral tenderness Male Genitalia Exam: deferred Rectal Exam: deferred OBJECTIVE DATA Vital Signs: Vital Signs - 24 hr Temp Pulse Resp BP Pulse Ox 11/15/19 08:00 98.9 F 82 22 143/67 94 L 11/15/19 07:00 82 22 94 L 11/15/19 04:00 97.9 F 71 20 151/69 98 11/15/19 00:00 98.2 F 76 18 151/70 97 11/14/19 20:28 94 L 11/14/19 20:00 99.0 F 87 18 167/74 98 11/14/19 16:00 98.8 F 101 H 20 137/84 96 Oxygen-Last 24 hours Oxygen Flowrate (L/min)-RT 3 Oxygen Flowrate (L/min)-RT 3 Pain Assessment - Last Documented Pain Intensity 8 Pain Scale Used [facility] Intake and Output: Intake & Output 11/13/19 11/14/19 11/15/19 11/16/19 11:59 11:59 11:59 11:59 Intake Total 3729 9822 9514 Output Total 0803 4000 1950 Balance 1122 -1654 514 Weight 75.6 kg 75.4 kg 76 kg Lab Results: Accuchecks Date 11/15/19 Date 11/14/19 Date 11/14/19 Time 07:30 Time 21:00 Time 16:30 Accucheck Value: 132 Accucheck Value: 182 Accucheck Value: 204 Radiology Exams: Radiology Procedures Category Date Time Status ECHO W/2D AND DOPPLER [US] Routine Exams 11/15/19 09:00 Taken Assessment/Plan (1) Chronic renal disease, stage 4, severely decreased glomerular filtration rate (GFR) between 15-29 mL/min/1.73 square meter Current Visit: Yes Status: Acute Assessment & Plan: Chief Complaint Diagnosis WEAKNESS, LEFT LOWER EXTREMITY WEAKNESS, COPD Allergies Allergy/AdvReac Type Severity Reaction Status Date / Time No Known Drug Allergies Allergy Verified 11/12/19 13:44 Vital Signs (Last 24 hours) Temp Pulse Resp BP Pulse Ox 11/15/19 08:00 98.9 F 82 22 143/67 94 L 11/15/19 07:00 82 22 94 L 11/15/19 04:00 97.9 F 71 20 151/69 98 11/15/19 00:00 98.2 F 76 18 151/70 97 11/14/19 20:28 94 L 11/14/19 20:00 99.0 F 87 18 167/74 98 11/14/19 16:00 98.8 F 101 H 20 137/84 96 Home Medications Medication Instructions Recorded Confirmed Last Taken Type Cyanocobalamin (Vitamin B-12) 1,000 mcg IM UD 11/12/19 11/12/19 11/11/19 History [Vitamin B-12] Ergocalciferol (Vitamin D2) 50,000 unit PO UD 11/12/19 11/12/19 Unknown History [Vitamin D2] Hydralazine HCl 50 mg PO BID 11/12/19 11/12/19 11/12/19 History Current Medications Generic Name Dose Route Start Last Admin Trade Name Freq PRN Reason Stop Dose Admin Acetaminophen 500 mg 11/12/19 19:22 Tylenol Extra Strength 500 Mg PO 12/12/19 19:21 Q4HPRN PRN PAIN, FEVER, HEADACHE Albuterol Sulfate 2.5 mg 11/12/19 15:57 Proventil 2.5 Mg/3 Ml Neb IH 12/12/19 15:56 Q6HPRN PRN SHORTNESS OF BREATH Albuterol Sulfate 2.5 mg 11/13/19 10:00 11/15/19 07:20 Proventil 2.5 Mg/3 Ml Neb IH 12/13/19 09:59 2.5 mg QAM SIMBA Administration Aspirin 81 mg 11/14/19 10:00 11/15/19 10:08 Ecotrin 81 Mg PO 12/14/19 09:59 81 mg DAILY SIMBA Administration Bumetanide 2 mg 11/12/19 17:00 11/15/19 10:08 Bumex 1 Mg PO 12/12/19 16:59 2 mg BID DIURETIC SIMBA Administration Cyanocobalamin 1,000 mcg 11/21/19 10:00 Cyanocobalamin B-12 1000 Mcg/Ml IM 12/12/19 10:01 Q7D SIMBA Diltiazem HCl 120 mg 11/14/19 10:00 11/15/19 10:08 Cardizem Cd 120 Mg PO 12/14/19 09:59 120 mg DAILY SIMBA Administration Ergocalciferol 50,000 unit 11/13/19 10:00 11/13/19 09:54 Vitamin D2 PO 12/13/19 09:59 50,000 unit Q7D SIMBA Administration Folic Acid 1 mg 11/13/19 10:00 11/15/19 10:08 Folate 1 Mg PO 12/13/19 09:59 1 mg DAILY SIMBA Administration Hydralazine HCl 50 mg 11/12/19 22:00 11/15/19 10:08 Apresoline 25 Mg Tablet PO 12/12/19 21:59 50 mg BID SIMBA Administration Sodium Chloride 1,000 mls @ 50 mls/hr 11/12/19 12:45 11/13/19 17:11 Sodium Chloride 0.9% 1000 Ml IV 12/12/19 12:44 50 mls/hr .Q20H SIMBA Administration Ceftriaxone Sodium/Dextrose 1 g in 50 mls @ 100 mls/hr 11/15/19 22:00 Rocephin 1 Gm-D5w 50 Ml Bag IV 12/15/19 21:59 Q24H22 SIMBA Insulin Human Regular 0 unit 11/12/19 12:45 11/14/19 18:32 Novolin R SQ 12/12/19 12:44 2 unit UD PRN Administration ACCUCHEK Magnesium Oxide 400 mg 11/12/19 22:00 11/15/19 10:08 Mag-Ox 400 PO 12/12/19 21:59 400 mg BID SIMBA Administration Methylprednisolone 4 mg 11/13/19 10:00 11/15/19 10:08 Medrol 4 Mg PO 12/13/19 09:59 4 mg DAILY SIMBA Administration Metoprolol Tartrate 25 mg 11/12/19 22:00 11/15/19 10:08 Lopressor 25mg Tab PO 12/12/19 21:59 25 mg BID SIMBA Administration Morphine Sulfate 4 mg 11/12/19 18:24 11/15/19 06:47 Morphine Sulfate 4 Mg Inj IV 11/17/19 18:23 4 mg Q4H PRN PRN Administration PAIN Mycophenolate 500mg 3 each 11/13/19 10:00 11/15/19 10:08 Tablet PO 12/13/19 09:59 3 each BID SIMBA Administration Potassium Chloride 20 meq 11/12/19 22:00 11/15/19 10:07 Klor Con 10 Meq PO 12/12/19 21:59 20 meq BID SIMBA Administration Simvastatin 10 mg 11/12/19 22:00 11/14/19 22:31 Zocor 10mg PO 12/12/19 21:59 10 mg HS SIMBA Administration Discontinued Medications Generic Name Dose Route Start Last Admin Trade Name Freq PRN Reason Stop Dose Admin Acetaminophen 325 mg 11/12/19 12:45 11/12/19 17:33 Tylenol 325 Mg PO 12/12/19 12:44 325 mg Q4H PRN PRN Administration PAIN, FEVER, HEADACHE Cyanocobalamin 1,000 mcg 11/12/19 17:00 11/14/19 10:15 Cyanocobalamin B-12 1000 Mcg/Ml IM 11/14/19 10:01 1,000 mcg DAILY SIMBA Administration Diltiazem HCl Confirm 11/14/19 07:53 Cardizem Cd 120 Mg Administered 11/14/19 07:54 Dose 120 mg .ROUTE .STK-MED ONE Ergocalciferol 0 unit 11/13/19 10:00 Vitamin D2 PO 12/13/19 09:59 UD SIMBA Ceftriaxone Sodium/Dextrose 1 g in 50 mls @ 100 mls/hr 11/13/19 10:00 10:10 Rocephin 1 Gm-D5w 50 Ml Bag IV 12/13/19 09:59 Not Given Q24H10 SIMBA Miscellaneous Information 1 each 11/12/19 16:15 Medication Intervention PO 12/12/19 16:14 .RN TO CHECK ON SIMBA Miscellaneous Information 1 each 11/12/19 22:00 11/12/19 21:11 Medication Intervention PO 12/12/19 21:59 3 each BID SIMBA Administration Intake & Output (Last 24 hours) 11/13/19 11/14/19 11/15/19 11/16/19 11:59 11:59 11:59 11:59 Intake Total 2572 2346 2464 Output Total 1450 4000 1950 Balance 1122 -1654 514 Weight 75.6 kg 75.4 kg 76 kg Orders (Last 24 hours) Category Date Time Status ECHO W/2D AND DOPPLER [US] Routine Exams 11/15/19 09:00 Taken Ceftriaxone 1 GM/50 ML PREMIX* [ROCEPHIN 1 Gm-D5w 50 ml Med 11/15/19 22:00 Active Bag] 1 g in 50 ml IV Q24H22 Cyanocobalamin 1000 Mcg/ml [Cyanocobalamin B-12 1000 Med 11/21/19 10:00 Active MCG/ML] 1,000 mcg IM Q7D Patient Care Notes (Last 24 hours) 11/15/19 08:40 Nursing Note by Anais Estevez I called 's office and requested notes or anything that has been done for patient. They are faxing it to me. Initialized on 11/15/19 08:40 - END OF NOTE Code(s): N18.4 - CHRONIC KIDNEY DISEASE, STAGE 4 (SEVERE) (2) CAD (coronary artery disease) Current Visit: Yes Status: Chronic Qualifiers: Coronary Disease-Associated Artery/Lesion type: [place] artery [place] vs. transplanted heart: [place] heart Associated angina: without angina Qualified Code(s): I25.10 - Atherosclerotic heart disease of [place] coronary artery without angina pectoris Code(s): I25.10 - ATHSCL HEART DISEASE OF [place] CORONARY ARTERY W/O ANG PCTRS (3) COPD (chronic obstructive pulmonary disease) Current Visit: Yes Status: Chronic Qualifiers: COPD type: chronic bronchitis (4) HTN (hypertension), benign Current Visit: Yes Status: Chronic Code(s): I10 - ESSENTIAL (PRIMARY) HYPERTENSION (5) CHF (congestive heart failure), NYHA class III Current Visit: Yes Status: Chronic Qualifiers: Congestive heart failure chronicity: acute on chronic Code(s): I50.9 - HEART FAILURE, UNSPECIFIED
[2019-11-15] MEDS ORDERED: ROCEPHIN 1 Gm-D5w 50 ml Bag** 1 G/50 ML IVPB IV SCH (22:00)
[2019-11-15] MEDS: Zocor 10MG PO SCH (22:36)
[2019-11-16] MEDS: MORPHINE SULFATE 4 MG INJ IV PRN (04:32)
[2019-11-16 07:23] VITALS: BP 170/74; O2SAT 96
[2019-11-16] MEDS: PROVENTIL 2.5 MG/3 ML NEB IH SCH (07:35)
[2019-11-16 07:44] VITALS: PULSE 88
[2019-11-16] MEDS: Sodium Chloride 0.9% 1000 ML 1,000 ML IV SCH ×2 (09:21→09:22)
[2019-11-16] MEDS: ECOTRIN 81 MG PO SCH (09:24)
[2019-11-16] MEDS: FOLATE 1 MG PO SCH (09:24)
[2019-11-16] MEDS: BUMEX 1 MG PO SCH (09:24)
[2019-11-16] MEDS: Lopressor 25MG Tab PO SCH (09:24)
[2019-11-16] MEDS: Klor Con 10 MEQ PO SCH (09:24)
[2019-11-16] MEDS: MAG-OX 400 PO SCH (09:24)
[2019-11-16] MEDS: Cardizem CD 120 MG PO SCH (09:24)
[2019-11-16] MEDS: Apresoline 25 MG TABLET PO SCH (09:24)
[2019-11-16] MEDS: MEDROL 4 MG PO SCH (09:24)
[2019-11-16] MEDS: PATIENT OWN MEDICATION PO SCH (09:25)
--- NOTE | 2019-11-16 12:17 | PCM.DS ---
Discharge Summary Date of Admission: 11/13/19 07:40 Admitting Physician: SADIA GROVER Primary Care Provider: SADIA GROVER Allergies Allergies No Known Drug Allergies Allergy (Verified 11/12/19 13:44) Hospital Summary - Hospital Course Hospital Course: Chief Complaint Diagnosis WEAKNESS, LEFT LOWER EXTREMITY WEAKNESS, COPD Allergies Allergy/AdvReac Type Severity Reaction Status Date / Time No Known Drug Allergies Allergy Verified 11/12/19 13:44 Vital Signs (Last 24 hours) Temp Pulse Resp BP Pulse Ox 11/16/19 07:36 88 20 96 11/16/19 07:22 98.1 F 79 22 170/74 96 11/16/19 04:00 98.8 F 75 20 157/68 97 11/16/19 00:00 100.9 F 82 22 139/63 96 11/15/19 20:00 100.7 F 91 H 20 132/61 92 L 11/15/19 16:00 99.5 F 89 20 136/62 96 Home Medications Medication Instructions Recorded Confirmed Last Taken Type Cyanocobalamin (Vitamin B-12) 1,000 mcg IM UD 11/12/19 11/12/19 11/11/19 History [Vitamin B-12] Ergocalciferol (Vitamin D2) 50,000 unit PO UD 11/12/19 11/12/19 Unknown History [Vitamin D2] Hydralazine HCl 50 mg PO BID 11/12/19 11/12/19 11/12/19 History Current Medications Discontinued Medications Generic Name Dose Route Start Last Admin Trade Name Freq PRN Reason Stop Dose Admin Acetaminophen 325 mg 11/12/19 12:45 11/12/19 17:33 Tylenol 325 Mg PO 12/12/19 12:44 325 mg Q4H PRN PRN Administration PAIN, FEVER, HEADACHE Acetaminophen 500 mg 11/12/19 19:22 Tylenol Extra Strength 500 Mg PO 12/12/19 19:21 Q4HPRN PRN PAIN, FEVER, HEADACHE Albuterol Sulfate 2.5 mg 11/12/19 15:57 Proventil 2.5 Mg/3 Ml Neb IH 12/12/19 15:56 Q6HPRN PRN SHORTNESS OF BREATH Albuterol Sulfate 2.5 mg 11/13/19 10:00 11/16/19 07:35 Proventil 2.5 Mg/3 Ml Neb IH 12/13/19 09:59 2.5 mg QAM SIMBA Administration Aspirin 81 mg 11/14/19 10:00 11/16/19 09:24 Ecotrin 81 Mg PO 12/14/19 09:59 81 mg DAILY SIMBA Administration Bumetanide 2 mg 11/12/19 17:00 11/16/19 09:24 Bumex 1 Mg PO 12/12/19 16:59 2 mg BID DIURETIC SIMBA Administration Cyanocobalamin 1,000 mcg 11/12/19 17:00 11/14/19 10:15 Cyanocobalamin B-12 1000 Mcg/Ml IM 11/14/19 10:01 1,000 mcg DAILY SIMBA Administration Cyanocobalamin 1,000 mcg 11/21/19 10:00 Cyanocobalamin B-12 1000 Mcg/Ml IM 12/12/19 10:01 Q7D SIMBA Diltiazem HCl 120 mg 11/14/19 10:00 11/16/19 09:24 Cardizem Cd 120 Mg PO 12/14/19 09:59 120 mg DAILY SIMBA Administration Diltiazem HCl Confirm 11/14/19 07:53 Cardizem Cd 120 Mg Administered 11/14/19 07:54 Dose 120 mg .ROUTE .STK-MED ONE Ergocalciferol 0 unit 11/13/19 10:00 Vitamin D2 PO 12/13/19 09:59 UD [facility] Ergocalciferol 50,000 unit 11/13/19 10:00 11/13/19 09:54 Vitamin D2 PO 12/13/19 09:59 50,000 unit Q7D SIMBA Administration Folic Acid 1 mg 11/13/19 10:00 11/16/19 09:24 Folate 1 Mg PO 12/13/19 09:59 1 mg DAILY SIMBA Administration Hydralazine HCl 50 mg 11/12/19 22:00 11/16/19 09:24 Apresoline 25 Mg Tablet PO 12/12/19 21:59 50 mg BID SIMBA Administration Sodium Chloride 1,000 mls @ 50 mls/hr 11/12/19 12:45 11/16/19 09:22 Sodium Chloride 0.9% 1000 Ml IV 12/12/19 12:44 Not Given .Q20H SIMBA Ceftriaxone Sodium/Dextrose 1 g in 50 mls @ 100 mls/hr 11/13/19 10:00 10:10 Rocephin 1 Gm-D5w 50 Ml Bag IV 12/13/19 09:59 Not Given Q24H10 SIMBA Ceftriaxone Sodium/Dextrose 1 g in 50 mls @ 100 mls/hr 11/15/19 22:00 22:36 Rocephin 1 Gm-D5w 50 Ml Bag IV 12/15/19 21:59 100 mls/hr Q24H22 SIMBA Administration Insulin Human Regular 0 unit 11/12/19 12:45 11/14/19 18:32 Novolin R SQ 12/12/19 12:44 2 unit UD PRN Administration ACCUCHEK Magnesium Oxide 400 mg 11/12/19 22:00 11/16/19 09:24 Mag-Ox 400 PO 12/12/19 21:59 400 mg BID SIMBA Administration Methylprednisolone 4 mg 11/13/19 10:00 11/16/19 09:24 Medrol 4 Mg PO 12/13/19 09:59 4 mg DAILY SIMBA Administration Metoprolol Tartrate 25 mg 11/12/19 22:00 11/16/19 09:24 Lopressor 25mg Tab PO 12/12/19 21:59 25 mg BID SIMBA Administration Miscellaneous Information 1 each 11/12/19 16:15 Medication Intervention PO 12/12/19 16:14 .RN TO CHECK ON SIMBA Miscellaneous Information 1 each 11/12/19 22:00 11/12/19 21:11 Medication Intervention PO 12/12/19 21:59 3 each BID SIMBA Administration Morphine Sulfate 4 mg 11/12/19 18:24 11/16/19 04:32 Morphine Sulfate 4 Mg Inj IV 11/17/19 18:23 4 mg Q4H PRN PRN Administration PAIN Mycophenolate 500mg 3 each 11/13/19 10:00 11/16/19 09:25 Tablet PO 12/13/19 09:59 3 each BID SIMBA Administration Potassium Chloride 20 meq 11/12/19 22:00 11/16/19 09:24 Klor Con 10 Meq PO 12/12/19 21:59 20 meq BID SIMBA Administration Simvastatin 10 mg 11/12/19 22:00 11/15/19 22:36 Zocor 10mg PO 12/12/19 21:59 10 mg HS SIMBA Administration Intake & Output (Last 24 hours) 11/14/19 11/15/19 11/16/19 11/17/19 11:59 11:59 11:59 11:59 Intake Total 2346 2464 2200 Output Total 3999 1949 2224 Balance -1654 514 -25 Weight 75.4 kg 76 kg 76.8 kg Orders (Last 24 hours) Category Date Time Status Discharge Routine Discharge 11/16/19 Ordered Ceftriaxone 1 GM/50 ML PREMIX* [ROCEPHIN 1 Gm-D5w 50 ml Med 11/15/19 22:00 Discontinued Bag] 1 g in 50 ml IV Q24H22 Cyanocobalamin 1000 Mcg/ml [Cyanocobalamin B-12 1000 Med 11/21/19 10:00 Discontinued MCG/ML] 1,000 mcg IM Q7D Discharge Transfer Routine Transfer 11/16/19 Completed - Vitals & Intake/Output Vital Signs: Vital Signs Temperature 98.1 F 11/16/19 07:22 Pulse Rate 88 11/16/19 07:36 Respiratory Rate 20 11/16/19 07:36 Blood Pressure 170/74 11/16/19 07:22 O2 Sat by Pulse Oximetry 96 11/16/19 07:36 Intake & Output: Intake & Output 11/14/19 11/15/19 11/16/19 11/17/19 11:59 11:59 11:59 11:59 Intake Total 23450 Output Total 3999 1949 2224 Balance -1654 514 -25 Weight 75.4 kg 76 kg 76.8 kg - Lab Result Diagrams: 11/14/19 07:50 11/14/19 07:50 Lab Results-Last 24 Hrs: Accuchecks Date 11/16/19 Date 11/15/19 Date 11/15/19 Time 07:30 Time 21:00 Time 16:30 Accucheck Value: 124 Accucheck Value: 182 Accucheck Value: 152 Micro Results-Entire Visit: Microbiology 11/12/19 13:54 Blood Culture - Preliminary Blood NO GROWTH TO DATE 11/12/19 13:05 Blood Culture - Preliminary Blood NO GROWTH TO DATE Accuchecks Date 11/16/19 Date 11/15/19 Date 11/15/19 Time 07:30 Time 21:00 Time 16:30 Accucheck Value: 124 Accucheck Value: 182 Accucheck Value: 152 - Radiology Exams Ordered Rad Exams-Entire Visit: Radiology Procedures Category Date Time Status ECHO W/2D AND DOPPLER [US] Routine Exams 11/15/19 09:00 Taken - Procedures and Test Procedures and Tests throughout Hospitalization: Therapy Orders & Screens 11/12/19 12:45 EKG STAT Comment: Oxygen Nasal Cannula 2 lpm Comment: Respiratory Therapy Consult ROUTINE Comment: Reason For Exam: 11/12/19 13:36 OT Screen per Nursing Assess Comment: Protocol Order Physician Instructions: Greater than 3 points order OT Admission Screening Reason For Exam: Triggered on Admission Diagnosis: WEAKNESS, LEFT LOWER EXTREMITY WEAKNESS Open Wound/Cellutlitis/Pressure Ulcers: No Acute Fx/ORIF/Change in wt bearing status: No Severe MUSCULOSKELETAL pain: Yes ADL Dysfunction: No Acute CVA w/Hemiparesis/Hemiplegia: No Decreased Functional Mobility/Strength: No Sprain/Strain: No Acute Post-op Mobility Dysfunction: No Total Points: 5 PT Screen per Nursing Assess Comment: Protocol Order Physician Instructions: Greater than 3 points order PT Admission Screenin Reason For Exam: Triggered on Admission Diagnosis: WEAKNESS, LEFT LOWER EXTREMITY WEAKNESS Open Wound/Cellutlitis/Pressure Ulcers: No Acute Fx/ORIF/Change in wt bearing status: No Severe MUSCULOSKELETAL pain: Yes ADL Dysfunction: No Acute CVA w/Hemiparesis/Hemiplegia: No Decreased Functional Mobility/Strength: No Sprain/Strain: No Acute Post-op Mobility Dysfunction: No Total Points: 5 RT Screen per Nursing Assess Comment: Protocol Order Physician Instructions: Greater than 3 points order RT Admission Screen Reason For Exam: Triggered on Admission Diagnosis: WEAKNESS, LEFT LOWER EXTREMITY WEAKNESS Diagnosis: WEAKNESS, LEFT LOWER EXTREMITY WEAKNESS Pneumonia: No Home O2: Yes: 3L NC Asthma: No CHF: No Home CPAP/BIPAP: No Home Nebs/MDI: Yes Total Points: 10 11/12/19 17:38 Respiratory Therapy Assessment DAILY Comment: Diagnosis: WEAKNESS, LEFT LOWER EXTREMITY WEAKNESS 11/12/19 17:39 Peak Expiratory Flow Rate ONCE Comment: Reason For Exam: Diagnosis: WEAKNESS, LEFT LOWER EXTREMITY WEAKNESS 11/13/19 08:33 PT Eval & Treat (MD Order) ROUTINE Reason for Eval:: weakness, progression of parkinsons, need for rehab Diagnosis: WEAKNESS, LEFT LOWER EXTREMITY WEAKNESS 11/14/19 07:49 EKG ONCE Comment: Diagnosis: WEAKNESS, LEFT LOWER EXTREMITY WEAKNESS Discharge Exam General Appearance: no apparent distress, alert Neurologic Exam: alert, oriented x 3, cooperative, normal mood/affect, nml cerebellar function, sensation nml, No motor deficits Eye Exam: PERRL, EOMI, eyes nml inspection Ears, Nose, Throat Exam: normal ENT inspection, pharynx normal, moist mucous membranes Neck Exam: normal inspection, non-tender, supple, full range of motion Respiratory Exam: normal breath sounds, lungs clear, No respiratory distress Cardiovascular Exam: regular rate/rhythm, normal heart sounds Gastrointestinal/Abdomen Exam: soft, No tenderness, No mass Male Genitalia Exam: deferred Rectal Exam: deferred Back Exam: normal inspection, normal range of motion, No CVA tenderness, No vertebral tenderness Extremity Exam: normal inspection, normal range of motion Skin Exam: normal color, warm, dry Final Diagnosis/Problem List - Final Discharge Diagnosis/Problem (1) Chronic renal disease, stage 4, severely decreased glomerular filtration rate (GFR) between 15-29 mL/min/1.73 square meter Status: Acute Code(s): N18.4 - CHRONIC KIDNEY DISEASE, STAGE 4 (SEVERE) (2) CAD (coronary artery disease) Status: Chronic Priority: High Code(s): I25.10 - ATHSCL HEART DISEASE OF [place] CORONARY ARTERY W/O ANG PCTRS (3) COPD (chronic obstructive pulmonary disease) Status: Chronic Priority: Medium (4) HTN (hypertension), benign Status: Chronic Priority: Medium Code(s): I10 - ESSENTIAL (PRIMARY) HYPERTENSION (5) CHF (congestive heart failure), NYHA class III Status: Chronic Code(s): I50.9 - HEART FAILURE, UNSPECIFIED - Discharge Discharge Date: 11/15/19 Disposition: Swing Bed @ [facility] Condition: Stable Prescriptions: No Action Folic Acid 1 mg PO DAILY Simvastatin [Zocor] 10 mg PO HS Magnesium Oxide 400 mg [Mag-Ox 400] 400 mg PO BID Potassium Chloride 10 Meq Tab* [Klor Con 10 MEQ] 20 meq PO BID Bumetanide [Bumex] 2 mg PO BID Metoprolol Tartrate 25 mg [Lopressor 25MG Tab] 25 mg PO BID Albuterol 2.5 mg/3 ml Neb [Proventil 2.5 mg/3 ml Neb] 2.5 mg NEB Q6HPRN PRN PRN Reason: Shortness Of Breath Methylprednisolone 4 mg [Medrol 4 mg] 4 mg PO DAILY mycophenolate mofetiL [Mycophenolate Mofetil] 1,500 tab PO BID Ergocalciferol (Vitamin D2) [Vitamin D2] 50,000 unit PO UD Cyanocobalamin (Vitamin B-12) [Vitamin B-12] 1,000 mcg IM UD Hydralazine HCl 50 mg PO BID Follow up with: SADIA GROVER MD [Primary Care Provider] - 1 Week KIM NATHAN [NON-STAFF PHY W/O PRIVILEGES] - 1 Week
--- NOTE | 2019-11-16 15:09 | ECHO ---
DATE OF PROCEDURE: 11/15/2019 CLINICAL INFORMATION: Syncope. The echocardiogram was technically difficult due to the patient had broken ribs on the left side. The M-mode 2D, and Doppler echocardiogram including color flow Doppler shows the left ventricle is normal in size at 5.1 cm. There is no thrombus present. The septal wall thickness is increased at 1.2 cm. The left ventricular posterior wall thickness is normal at 1.0 cm. There is normal contractility of the left ventricle with an ejection fraction calculated at 57%. The right ventricle is normal. The aortic valve opens well. There is no aortic regurgitation present. There is mitral valve leaflet thickening associated with mild mitral regurgitation. There is mild tricuspid regurgitation. The right ventricular systolic pressure is elevated at 34 mm of [place]. The pulmonic valve is not well visualized. The aortic root is normal at 3.1 cm. There is no pericardial effusion present. IMPRESSION: 1) NORMAL CONTRACTILITY OF THE LEFT VENTRICLE. 2) BORDERLINE ASYMMETRIC LEFT VENTRICULAR HYPERTROPHY. 3) MILD MITRAL REGURGITATION. 4) MILD TRICUSPID REGURGITATION. 5) MILD PULMONARY HYPERTENSION.
== END 2019-11-16 10:00 | disposition swing bed (61) | DRG 292 ==
LOC: MED SURG 12:27 → OBSVTOIN 11-13 07:40
PROVIDERS: ADMIT General Practice; ATTEND General Practice
DX: I13.0 Hypertensive heart and chronic kidney disease with heart failure and stage 1 through stage 4 chronic kidney disease, or unspecified chronic kidney disease (principal); N18.4 Chronic kidney disease, stage 4 (severe); I50.9 Heart failure, unspecified; I25.10 Atherosclerotic heart disease of native coronary artery without angina pectoris; J44.9 Chronic obstructive pulmonary disease, unspecified; E78.00 Pure hypercholesterolemia, unspecified; R53.1 Weakness; Z79.899 Other long term (current) drug therapy
CPT/HCPCS: 36415; 70450; 71046; 80053; 81001; 82962; 83036; 83735; 83880; 85025; 87040; 93005; 93268; 93306; 94150; 94640; 94760; 97161; 97530; G0378; J0696; J2270; J3420; J7609; A9270-GY

== ENCOUNTER 2019-11-16 10:00 | Inpatient (IN) | payer MEDICARE ==
[2019-11-16] MEDS ORDERED: Aplisol ID ONE (10:24)
[2019-11-16] MEDS ORDERED: TYLENOL EXTRA STRENGTH 500 MG PO PRN (10:24)
[2019-11-16] MEDS ORDERED: PROVENTIL 2.5 MG/3 ML NEB IH PRN (10:24)
[2019-11-16] MEDS: NovoLIN R SQ PRN (11:19)
[2019-11-16] MEDS: Colace 100 MG PO SCH ×2 (11:45→21:08)
[2019-11-16] MEDS: MORPHINE SULFATE 4 MG INJ IV PRN ×2 (14:19→19:00)
[2019-11-16] MEDS: BUMEX 1 MG PO SCH (17:18)
[2019-11-16] MEDS: Apresoline 25 MG TABLET PO SCH (21:07)
[2019-11-16] MEDS: Zocor 10MG PO SCH (21:08)
[2019-11-16] MEDS: MAG-OX 400 PO SCH (21:08)
[2019-11-16] MEDS: Lopressor 25MG Tab PO SCH (21:08)
[2019-11-16] MEDS: Klor Con 10 MEQ PO SCH (21:08)
[2019-11-16] MEDS: PATIENT OWN MEDICATION PO SCH (21:13)
[2019-11-16] MEDS: ROCEPHIN 1 Gm-D5w 50 ml Bag** 1 G/50 ML IVPB IV SCH (21:42)
[2019-11-17] MEDS: MORPHINE SULFATE 4 MG INJ IV PRN ×2 (00:25→08:28)
[2019-11-17] MEDS ORDERED: NEURONTIN 300 MG PO ONE (02:49)
[2019-11-17] MEDS: PROVENTIL 2.5 MG/3 ML NEB IH SCH (07:20)
[2019-11-17] MEDS: Cardizem CD 120 MG PO SCH (08:25)
[2019-11-17] MEDS: Colace 100 MG PO SCH ×2 (08:25→22:17)
[2019-11-17] MEDS: MEDROL 4 MG PO SCH (08:26)
[2019-11-17] MEDS: ECOTRIN 81 MG PO SCH (08:26)
[2019-11-17] MEDS: FOLATE 1 MG PO SCH (08:26)
[2019-11-17] MEDS: Lopressor 25MG Tab PO SCH ×2 (08:26→22:17)
[2019-11-17] MEDS: NEURONTIN 300 MG PO SCH ×2 (08:26→22:26)
[2019-11-17] MEDS: Klor Con 10 MEQ PO SCH ×2 (08:27→22:16)
[2019-11-17] MEDS: MAG-OX 400 PO SCH ×2 (08:27→22:16)
[2019-11-17] MEDS: BUMEX 1 MG PO SCH ×2 (08:33→16:13)
[2019-11-17] MEDS: PATIENT OWN MEDICATION PO SCH ×2 (08:40→22:13)
[2019-11-17] MEDS: Apresoline 25 MG TABLET PO SCH ×2 (08:44→22:17)
[2019-11-17] MEDS ORDERED: Aplisol ID SCH (10:00)
--- NOTE | 2019-11-17 13:03 | PCM.NOTE ---
Date and Time: 11/17/19 1301 Subjective Assessment: doing ok - Review of Systems Constitutional: No Fever, No Chills Eyes: No Symptoms Ears, Nose, & Throat: No Symptoms Respiratory: No Cough, No Short Of Breath Cardiac: No Chest Pain, No Edema, No Syncope Abdominal/Gastrointestinal: No Abdominal Pain, No Nausea, No Vomiting, No Diarrhea Genitourinary Symptoms: No Dysuria Musculoskeletal: No Back Pain, No Neck Pain Skin: No Rash Neurological: No Dizziness, No Focal Weakness, No Sensory Changes Psychological: No Symptoms Endocrine: No Symptoms Hematologic/Lymphatic: No Symptoms Immunological/Allergic: No Symptoms Objective Exam General Appearance: no apparent distress, alert Neurologic Exam: alert, oriented x 3, cooperative, normal mood/affect, nml cerebellar function, sensation nml, No motor deficits Skin Exam: normal color, warm, dry Eye Exam: PERRL, EOMI, eyes nml inspection Ears, Nose, Throat Exam: normal ENT inspection, pharynx normal, moist mucous membranes Neck Exam: normal inspection, non-tender, supple, full range of motion Respiratory Exam: normal breath sounds, lungs clear, No respiratory distress Cardiovascular Exam: regular rate/rhythm, normal heart sounds Gastrointestinal/Abdomen Exam: soft, No tenderness, No mass Extremity Exam: normal inspection, normal range of motion Back Exam: normal inspection, normal range of motion, No CVA tenderness, No vertebral tenderness Male Genitalia Exam: deferred Rectal Exam: deferred OBJECTIVE DATA Vital Signs: Vital Signs - 24 hr Temp Pulse Resp BP Pulse Ox 11/17/19 07:25 91 H 22 93 L 11/17/19 07:23 98.7 F 104 H 20 126/63 95 11/16/19 20:00 98.7 F 65 20 157/70 94 L Pain Assessment - Last Documented Pain Intensity 9 Pain Scale Used 0-10 Pain Scale Intake and Output: Intake & Output 11/15/19 11/16/19 11/17/19 11/18/19 11:59 11:59 11:59 11:59 Intake Total 840 Output Total 1200 Balance -360 Weight 76.8 kg 75 kg Lab Results: Accuchecks Date 11/17/19 Date 11/16/19 Date 11/16/19 Time 07:37 Time 22:00 Time 17:23 Accucheck Value: 125 Accucheck Value: 182 Accucheck Value: 120 Assessment/Plan (1) Chronic renal disease, stage 4, severely decreased glomerular filtration rate (GFR) between 15-29 mL/min/1.73 square meter Current Visit: No Status: Acute Code(s): N18.4 - CHRONIC KIDNEY DISEASE, STAGE 4 (SEVERE) (2) CHF (congestive heart failure), NYHA class III Current Visit: No Status: Chronic Code(s): I50.9 - HEART FAILURE, UNSPECIFIED (3) COPD (chronic obstructive pulmonary disease) Current Visit: No Status: Chronic (4) HTN (hypertension), benign Current Visit: No Status: Chronic Code(s): I10 - ESSENTIAL (PRIMARY) HYPERTENSION
[2019-11-17] MEDS: NovoLIN R SQ PRN (16:42)
[2019-11-17] MEDS: ROCEPHIN 1 Gm-D5w 50 ml Bag** 1 G/50 ML IVPB IV SCH (22:13)
[2019-11-17] MEDS: Zocor 10MG PO SCH (22:17)
[2019-11-18] MEDS: NEURONTIN 300 MG PO SCH ×2 (02:28→10:08)
[2019-11-18] MEDS: PROVENTIL 2.5 MG/3 ML NEB IH SCH (05:37)
[2019-11-18] MEDS ORDERED: NEURONTIN 300 MG PO ONE (06:55)
--- NOTE | 2019-11-18 09:05 | PCM.NOTE ---
Date and Time: 11/18/19 09 Subjective Assessment: doing ok - Review of Systems Constitutional: No Fever, No Chills Eyes: No Symptoms Ears, Nose, & Throat: No Symptoms Respiratory: No Cough, No Short Of Breath Cardiac: No Chest Pain, No Edema, No Syncope Abdominal/Gastrointestinal: No Abdominal Pain, No Nausea, No Vomiting, No Diarrhea Genitourinary Symptoms: No Dysuria Musculoskeletal: No Back Pain, No Neck Pain Skin: No Rash Neurological: Sensory Changes (tingling numbness in feet), No Dizziness, No Focal Weakness Psychological: No Symptoms Endocrine: No Symptoms Hematologic/Lymphatic: No Symptoms Immunological/Allergic: No Symptoms Objective Exam General Appearance: no apparent distress, alert Neurologic Exam: alert, oriented x 3, cooperative, normal mood/affect, nml cerebellar function, sensation nml, No motor deficits Skin Exam: normal color, warm, dry Eye Exam: PERRL, EOMI, eyes nml inspection Ears, Nose, Throat Exam: normal ENT inspection, pharynx normal, moist mucous membranes Neck Exam: normal inspection, non-tender, supple, full range of motion Respiratory Exam: normal breath sounds, lungs clear, No respiratory distress Cardiovascular Exam: regular rate/rhythm, normal heart sounds Gastrointestinal/Abdomen Exam: soft, No tenderness, No mass Extremity Exam: normal inspection, normal range of motion Back Exam: normal inspection, normal range of motion, No CVA tenderness, No vertebral tenderness Male Genitalia Exam: deferred Rectal Exam: deferred OBJECTIVE DATA Vital Signs: Vital Signs - 24 hr Temp Pulse Resp BP Pulse Ox 11/18/19 07:33 99 F 95 H 24 146/72 92 L 11/18/19 05:39 66 18 97 11/17/19 19:55 97.7 F 86 20 168/73 95 Oxygen-Last 24 hours Oxygen Flowrate (L/min)-RT 3 Pain Assessment - Last Documented Pain Intensity 0 Pain Scale Used Stevo Tinoco,FLACC Intake and Output: Intake & Output 11/15/19 11/16/19 11/17/19 11/18/19 11:59 11:59 11:59 11:59 Intake Total 1080 240 Output Total 1550 550 Balance -470 -310 Weight 76.8 kg 75 kg Lab Results: Accuchecks Date 11/18/19 Date 11/17/19 Date 11/17/19 Date 11/17/19 Time 07:30 Time 22:00 Time 16:30 Time 11:30 Accucheck Value: 135 Accucheck Value: 284 Accucheck Value: 160 Lab Results-Last 24 Hours 11/18/19 Range/Units 08:05 Glucose 137 H (74-106) mg/dL Assessment/Plan (1) Chronic renal disease, stage 4, severely decreased glomerular filtration rate (GFR) between 15-29 mL/min/1.73 square meter Current Visit: Yes Status: Chronic Code(s): N18.4 - CHRONIC KIDNEY DISEASE, STAGE 4 (SEVERE) (2) CHF (congestive heart failure), NYHA class III Current Visit: Yes Status: Chronic Qualifiers: Congestive heart failure type: combined Code(s): I50.9 - HEART FAILURE, UNSPECIFIED (3) COPD (chronic obstructive pulmonary disease) Current Visit: Yes Status: Chronic (4) HTN (hypertension), benign Current Visit: Yes Status: Chronic Code(s): I10 - ESSENTIAL (PRIMARY) HYPERTENSION
[2019-11-18] MEDS: Lopressor 25MG Tab PO SCH ×2 (09:51→21:00)
[2019-11-18] MEDS: MAG-OX 400 PO SCH ×2 (09:51→21:00)
[2019-11-18] MEDS: ECOTRIN 81 MG PO SCH (09:51)
[2019-11-18] MEDS: MEDROL 4 MG PO SCH (09:51)
[2019-11-18] MEDS: Colace 100 MG PO SCH ×2 (09:51→21:01)
[2019-11-18] MEDS: BUMEX 1 MG PO SCH ×2 (09:51→17:27)
[2019-11-18] MEDS: Klor Con 10 MEQ PO SCH ×2 (09:51→21:01)
[2019-11-18] MEDS: Apresoline 25 MG TABLET PO SCH ×2 (09:51→21:00)
[2019-11-18] MEDS: FOLATE 1 MG PO SCH (09:52)
[2019-11-18] MEDS: Cardizem CD 120 MG PO SCH (09:52)
[2019-11-18] MEDS: PATIENT OWN MEDICATION PO SCH ×2 (10:13→21:03)
[2019-11-18] MEDS: Voltaren GEL TOP PRN ×2 (14:33→21:03)
[2019-11-18] MEDS: Zocor 10MG PO SCH (21:00)
[2019-11-18] MEDS: Neurontin 100 MG PO SCH (21:01)
[2019-11-18] MEDS: ROCEPHIN 1 Gm-D5w 50 ml Bag** 1 G/50 ML IVPB IV SCH (21:02)
[2019-11-19] MEDS: NORCO 5/325 MG PO PRN ×3 (03:59→23:16)
[2019-11-19] MEDS: PROVENTIL 2.5 MG/3 ML NEB IH SCH (07:23)
[2019-11-19] MEDS: Voltaren GEL TOP PRN ×2 (08:23→21:27)
[2019-11-19] MEDS: Apresoline 25 MG TABLET PO SCH ×2 (10:13→21:27)
[2019-11-19] MEDS: BUMEX 1 MG PO SCH ×2 (10:13→17:12)
[2019-11-19] MEDS: Klor Con 10 MEQ PO SCH ×2 (10:14→21:27)
[2019-11-19] MEDS: Cardizem CD 120 MG PO SCH (10:14)
[2019-11-19] MEDS: FOLATE 1 MG PO SCH (10:15)
[2019-11-19] MEDS: Colace 100 MG PO SCH ×2 (10:15→21:28)
[2019-11-19] MEDS: MEDROL 4 MG PO SCH (10:15)
[2019-11-19] MEDS: ECOTRIN 81 MG PO SCH (10:15)
[2019-11-19] MEDS: MAG-OX 400 PO SCH ×2 (10:15→21:27)
[2019-11-19] MEDS: Lopressor 25MG Tab PO SCH ×2 (10:16→21:27)
[2019-11-19] MEDS: Neurontin 100 MG PO SCH (10:19)
[2019-11-19] MEDS: PATIENT OWN MEDICATION PO SCH ×2 (10:19→21:41)
--- NOTE | 2019-11-19 12:57 | PCM.NOTE ---
Date and Time: 11/19/19 1256 Subjective Assessment: doing ok - Review of Systems Constitutional: No Fever, No Chills Eyes: No Symptoms Ears, Nose, & Throat: No Symptoms Respiratory: No Cough, No Short Of Breath Cardiac: No Chest Pain, No Edema, No Syncope Abdominal/Gastrointestinal: No Abdominal Pain, No Nausea, No Vomiting, No Diarrhea Genitourinary Symptoms: No Dysuria Musculoskeletal: No Back Pain, No Neck Pain Skin: No Rash Neurological: No Dizziness, No Focal Weakness, No Sensory Changes Psychological: No Symptoms Endocrine: No Symptoms Hematologic/Lymphatic: No Symptoms Immunological/Allergic: No Symptoms Objective Exam General Appearance: no apparent distress, alert Neurologic Exam: alert, oriented x 3, cooperative, normal mood/affect, nml cerebellar function, sensation nml, No motor deficits Skin Exam: normal color, warm, dry Eye Exam: PERRL, EOMI, eyes nml inspection Ears, Nose, Throat Exam: normal ENT inspection, pharynx normal, moist mucous membranes Neck Exam: normal inspection, non-tender, supple, full range of motion Respiratory Exam: normal breath sounds, lungs clear, No respiratory distress Cardiovascular Exam: regular rate/rhythm, normal heart sounds Gastrointestinal/Abdomen Exam: soft, No tenderness, No mass Extremity Exam: normal inspection, normal range of motion Back Exam: normal inspection, normal range of motion, No CVA tenderness, No vertebral tenderness Male Genitalia Exam: deferred Rectal Exam: deferred OBJECTIVE DATA Vital Signs: Vital Signs - 24 hr Temp Pulse Resp BP Pulse Ox 11/19/19 07:55 98.5 F 75 18 140/68 95 11/19/19 07:28 75 18 95 11/18/19 21:11 81 20 93 L 11/18/19 19:44 97.6 F 79 20 120/56 93 L Pain Assessment - Last Documented Pain Intensity 4 Pain Scale Used 0-10 Pain Scale,FLACC Intake and Output: Intake & Output 11/17/19 11/18/19 11/19/19 11/20/19 11:59 11:59 11:59 11:59 Intake Total 1080 240 290 Output Total 1550 184 800 Balance -825 -310 -684 Weight 75 kg 72.6 kg 72.6 kg Lab Results: Accuchecks Date 11/18/19 Date 11/18/19 Time 22:00 Time 16:30 Accucheck Value: 160 Accucheck Value: 180 Accucheck Value: 111 Multi-Disciplinary Progress Notes: Multi-Disciplinary Progress Notes 11/19/19 09:38 Case Management Note by Kate Royal S/W PATIENT THIS AM. SWING BED PAPERWORK SIGNED. PATIENT PLANS TO BE STRONG ENOUGH TO WALK WELL PRIOR DISCHARGING HOME. HE PLANS TO CONTINU REHAB IN SWINGBED UNTIL HE IS ABLE TO WALK. PATIENT WILL THEN RETURN HOME. HE LIVES ALONE BUT REFUSED HOME HEALTH SERVICES. HE STATED HE HAS LOTS OF FAMILY SUPPORT AND [facility]ESH GOODSON DOES HIS MEDICATIONS. Initialized on 11/19/19 09:38 - END OF NOTE 11/18/19 14:51 Physical Therapy Note by Jolie Liu PT. VERY LETHARGIC UPON P.T. ARRIVAL TO ROOM. NOT ABLE TO AROUSE TO PARTICIPATE THIS AM. SPOKE W/ RN AND THEY'RE THINKING THIS IS D/T ADDITION OF GABAPENTIN TO MEDS TO ADDRESS NEUROPATHIC PN. RATES BILATERAL FOOT/ANKLE PN AT 5-6/10. O2 SATS IN BED ON 3L WHILE PT. WAS DOZING WERE 87%. IN PM PT. DID PERFORM 10 REPS LE EX'S IN BED W/ ASSIST AND TACTILE CUES. BED MOBILITY W/ MIN ASSIST; SIT TO STAND MIN-MOD ASSIST; NOTED BILATERAL HAND TREMORING WHEN SEATED ON SIDE OF BED. AMBULATED ~ 40 ' W/ MIN ASSIST AND 3.5 L O2; O2 SATS 91%. PT. TENDS TO "PLOP" WHEN HE SITS AND NOT CONSISTENTLY USE SAFETY PRECAUTIONS OF REACHING BACK FOR CHAIR. WILL CONTINUE P.T. TOLERATED. JOLIE LIU PT Initialized on 11/18/19 14:51 - END OF NOTE Assessment/Plan (1) Chronic renal disease, stage 4, severely decreased glomerular filtration rate (GFR) between 15-29 mL/min/1.73 square meter Current Visit: Yes Status: Chronic Assessment & Plan: Last Vital Signs Temp 98.5 F 11/19/19 07:55 Pulse 75 11/19/19 07:55 Resp 18 11/19/19 07:55 BP 140/68 11/19/19 07:55 Pulse Ox 95 11/19/19 07:55 Allergies No Known Drug Allergies Allergy (Verified 11/12/19 13:44) Active Medications Acetaminophen (Tylenol Extra Strength 500 Mg) 500 mg PO Q4HPRN PRN PRN Reason: PAIN, FEVER, HEADACHE Stop: 02/23/20 19:21 Last Admin: 11/16/19 21:13 Dose: 500 mg Hydrocodone Bitart/Acetaminophen ([place] 5/325 Mg) 1 tab PO Q6H PRN PRN PRN Reason: PAIN Stop: 11/23/19 19:28 Last Admin: 11/19/19 03:59 Dose: 1 tab Albuterol Sulfate (Proventil 2.5 Mg/3 Ml Neb) 2.5 mg IH Q6HPRN PRN PRN Reason: SHORTNESS OF BREATH Stop: 12/12/19 15:56 Albuterol Sulfate (Proventil 2.5 Mg/3 Ml Neb) 2.5 mg IH QAM [facility] Stop: 12/13/19 09:59 Last Admin: 11/19/19 07:23 Dose: 2.5 mg Aspirin (Ecotrin 81 Mg) 81 mg PO DAILY [facility] Stop: 12/14/19 09:59 Last Admin: 11/19/19 10:15 Dose: 81 mg Bumetanide (Bumex 1 Mg) 2 mg PO BID DIURETIC [facility] Stop: 12/12/19 16:59 Last Admin: 11/19/19 10:13 Dose: 2 mg Cyanocobalamin (Cyanocobalamin B-12 1000 Mcg/Ml) 1,000 mcg IM Q7D [facility] Stop: 12/12/19 10:01 Diclofenac Sodium (Voltaren Gel) 1 gm TOP QIDPRN PRN PRN Reason: PAIN Stop: 12/18/19 12:57 Last Admin: 11/19/19 08:23 Dose: 1 gm Diltiazem HCl (Cardizem Cd 120 Mg) 120 mg PO DAILY [facility] Stop: 12/14/19 09:59 Last Admin: 11/19/19 10:14 Dose: 120 mg Docusate Sodium (Colace 100 Mg) 100 mg PO BID [facility] Stop: 12/16/19 11:59 Last Admin: 11/19/19 10:15 Dose: 100 mg Ergocalciferol (Vitamin D2) 50,000 unit PO Q7D [facility] Stop: 12/13/19 09:59 Folic Acid (Folate 1 Mg) 1 mg PO DAILY [facility] Stop: 12/13/19 09:59 Last Admin: 11/19/19 10:15 Dose: 1 mg Gabapentin (Neurontin 100 Mg) 200 mg PO BID [facility] Stop: 12/18/19 21:59 Last Admin: 11/19/19 10:19 Dose: Not Given Hydralazine HCl (Apresoline 25 Mg Tablet) 50 mg PO BID [facility] Stop: 12/12/19 21:59 Last Admin: 11/19/19 10:13 Dose: 50 mg Ceftriaxone Sodium/Dextrose (Rocephin 1 Gm-D5w 50 Ml Bag) 1 g in 50 mls @ 100 mls/hr IV Q24H22 [facility] Stop: 12/15/19 21:59 Last Admin: 11/18/19 21:02 Dose: 100 mls/hr Insulin Human Regular (Novolin R) 0 unit SQ UD PRN PRN Reason: ACCUCHEK Stop: 12/12/19 12:44 Last Admin: 11/17/19 16:42 Dose: 4 unit Magnesium Oxide (Mag-Ox 400) 400 mg PO BID [facility] Stop: 12/12/19 21:59 Last Admin: 11/19/19 10:15 Dose: 400 mg Methylprednisolone (Medrol 4 Mg) 4 mg PO DAILY [facility] Stop: 12/13/19 09:59 Last Admin: 11/19/19 10:15 Dose: 4 mg Metoprolol Tartrate (Lopressor 25mg Tab) 25 mg PO BID [facility] Stop: 12/12/19 21:59 Last Admin: 11/19/19 10:16 Dose: 25 mg Mycophenolate 500mg (Tablet) 3 each PO BID [facility] Stop: 12/13/19 09:59 Last Admin: 11/19/19 10:19 Dose: 3 each Potassium Chloride (Klor Con 10 Meq) 20 meq PO BID [facility] Stop: 12/12/19 21:59 Last Admin: 11/19/19 10:14 Dose: 20 meq Simvastatin (Zocor 10mg) 10 mg PO HS [facility] Stop: 12/12/19 21:59 Last Admin: 11/18/19 21:00 Dose: 10 mg Tuberculin PPD (Aplisol) 5 unit ID DAILY [facility] Stop: 11/28/19 10:01 Intake & Output 11/19/19 11/20/19 11:59 11:59 Intake Total 290 Output Total 800 Balance -510 Weight 72.6 kg Orders 11/18/19 12:58 Diclofenac Sodium Gel [Voltaren GEL] 1 gm TOP QIDPRN PRN 11/18/19 19:29 Hydrocodone/APAP 5/325 [[place] 5/325 mg] 1 tab PO Q6H PRN PRN 11/18/19 22:00 Gabapentin 100 mg [Neurontin 100 MG] 200 mg PO BID 11/20/19 10:00 Ergocalciferol (Vitamin D2) [Vitamin D2] 50,000 unit PO Q7D 11/21/19 10:00 Cyanocobalamin 1000 Mcg/ml [Cyanocobalamin B-12 1000 MCG/ML] 1,000 mcg IM Q7D 11/28/19 10:00 Tuberculin,Purif.prot.deriv. [Aplisol] 5 unit ID DAILY 11/30/19 04:00 BMP Q14D Code(s): N18.4 - CHRONIC KIDNEY DISEASE, STAGE 4 (SEVERE) (2) CHF (congestive heart failure), NYHA class III Current Visit: Yes Status: Chronic Qualifiers: Congestive heart failure type: combined Code(s): I50.9 - HEART FAILURE, UNSPECIFIED (3) COPD (chronic obstructive pulmonary disease) Current Visit: Yes Status: Chronic (4) HTN (hypertension), benign Current Visit: Yes Status: Chronic Code(s): I10 - ESSENTIAL (PRIMARY) HYPERTENSION
[2019-11-19] MEDS: NovoLIN R SQ PRN (13:49)
[2019-11-19] MEDS: Zocor 10MG PO SCH (21:27)
[2019-11-20] MEDS: NORCO 5/325 MG PO PRN (06:40)
[2019-11-20] MEDS: PROVENTIL 2.5 MG/3 ML NEB IH SCH (07:02)
--- NOTE | 2019-11-20 07:43 | PCM.NOTE ---
Date and Time: 11/20/19 0742 Subjective Assessment: doing better, pain improved - Review of Systems Constitutional: No Fever, No Chills Eyes: No Symptoms Ears, Nose, & Throat: No Symptoms Respiratory: No Cough, No Short Of Breath Cardiac: No Chest Pain, No Edema, No Syncope Abdominal/Gastrointestinal: No Abdominal Pain, No Nausea, No Vomiting, No Diarrhea Genitourinary Symptoms: No Dysuria Musculoskeletal: No Back Pain, No Neck Pain Skin: No Rash Neurological: No Dizziness, No Focal Weakness, No Sensory Changes Psychological: No Symptoms Endocrine: No Symptoms Hematologic/Lymphatic: No Symptoms Immunological/Allergic: No Symptoms Objective Exam General Appearance: no apparent distress, alert Neurologic Exam: alert, oriented x 3, cooperative, normal mood/affect, nml cerebellar function, sensation nml, No motor deficits Skin Exam: normal color, warm, dry Eye Exam: PERRL, EOMI, eyes nml inspection Ears, Nose, Throat Exam: normal ENT inspection, pharynx normal, moist mucous membranes Neck Exam: normal inspection, non-tender, supple, full range of motion Respiratory Exam: normal breath sounds, lungs clear, No respiratory distress Cardiovascular Exam: regular rate/rhythm, normal heart sounds Gastrointestinal/Abdomen Exam: soft, No tenderness, No mass Extremity Exam: normal inspection, normal range of motion Back Exam: normal inspection, normal range of motion, No CVA tenderness, No vertebral tenderness Male Genitalia Exam: deferred Rectal Exam: deferred OBJECTIVE DATA Vital Signs: Vital Signs - 24 hr Temp Pulse Resp BP Pulse Ox 11/20/19 07:11 92 H 18 97 11/19/19 20:00 98.6 F 85 22 127/58 95 11/19/19 19:22 96 11/19/19 07:55 98.5 F 75 18 140/68 95 Pain Assessment - Last Documented Pain Intensity 8 Pain Scale Used 0-10 Pain Scale Intake and Output: Intake & Output 11/17/19 11/18/19 11/19/19 11/20/19 11:59 11:59 11:59 11:59 Intake Total 1080 145 055 4387 Output Total 1550 750 176 2278 Balance -470 -310 -510 -145 Weight 75 kg 72.6 kg 72.6 kg Lab Results: Accuchecks Date 11/19/19 Time 22:00 Accucheck Value: 184 Accucheck Value: 161 Accucheck Value: 371 Multi-Disciplinary Progress Notes: Multi-Disciplinary Progress Notes 11/19/19 15:20 Physical Therapy Note by Korin Givens PATIENT DEMOS SIGNIFICANT IMPROVEMENT IN FUNCTIONAL MOBILITY TOLERANCE. ABLE TO RESISTIVE WALK WITH 1# ANKLE CUFFS 600' IN HALLWAY AM AND PM WITH ROLLATOR WALKER AND CGA. FUNCTIONAL TRANSFERS AND TOILETING WITH CGA/SBA. 3L O2 NC SUPPLEMENT TO MAINTAIN O2 SATS > 93% THROUGHOUT ACTIVITY; 97-98% AT REST. WILL CONTINUE TO MAXIMIZE POTENTIAL FOR RETURN HOME. Initialized on 11/19/19 15:20 - END OF NOTE 11/19/19 09:38 Case Management Note by Kate Royal S/W PATIENT THIS AM. SWING BED PAPERWORK SIGNED. PATIENT PLANS TO BE STRONG ENOUGH TO WALK WELL PRIOR DISCHARGING HOME. HE PLANS TO CONTINU REHAB IN SWINGBED UNTIL HE IS ABLE TO WALK. PATIENT WILL THEN RETURN HOME. HE LIVES ALONE BUT REFUSED HOME HEALTH SERVICES. HE STATED HE HAS LOTS OF FAMILY SUPPORT AND [facility]HU[facility] GOODSON DOES HIS MEDICATIONS. Initialized on 11/19/19 09:38 - END OF NOTE Assessment/Plan (1) Debilitated patient Current Visit: Yes Status: Acute Assessment & Plan: Chief Complaint Diagnosis deconditioning r/t copd right leg pain Allergies Allergy/AdvReac Type Severity Reaction Status Date / Time No Known Drug Allergies Allergy Verified 11/12/19 13:44 Vital Signs (Last 24 hours) Temp Pulse Resp BP Pulse Ox 11/20/19 07:11 92 H 18 97 11/19/19 20:00 98.6 F 85 22 127/58 95 11/19/19 19:22 96 11/19/19 07:55 98.5 F 75 18 140/68 95 Current Medications Generic Name Dose Route Start Last Admin Trade Name Freq PRN Reason Stop Dose Admin Acetaminophen 500 mg 11/16/19 10:24 11/16/19 21:13 Tylenol Extra Strength 500 Mg PO 12/12/19 19:21 500 mg Q4HPRN PRN Administration PAIN, FEVER, HEADACHE Hydrocodone Bitart/Acetaminophen 1 tab 11/18/19 19:29 11/20/19 06:40 [place] 5/325 Mg PO 11/23/19 19:28 1 tab Q6H PRN PRN Administration PAIN Albuterol Sulfate 2.5 mg 11/16/19 10:24 Proventil 2.5 Mg/3 Ml Neb IH 12/12/19 15:56 Q6HPRN PRN SHORTNESS OF BREATH Albuterol Sulfate 2.5 mg 11/17/19 10:00 11/20/19 07:02 Proventil 2.5 Mg/3 Ml Neb IH 12/13/19 09:59 2.5 mg QAM [facility] Administration Aspirin 81 mg 11/17/19 10:00 11/19/19 10:15 Ecotrin 81 Mg PO 12/14/19 09:59 81 mg DAILY [facility] Administration Bumetanide 2 mg 11/16/19 17:00 11/19/19 17:12 Bumex 1 Mg PO 12/12/19 16:59 2 mg BID DIURETIC [facility] Administration Cyanocobalamin 1,000 mcg 11/21/19 10:00 Cyanocobalamin B-12 1000 Mcg/Ml IM 12/12/19 10:01 Q7D [facility] Diclofenac Sodium 1 gm 11/18/19 12:58 11/19/19 21:27 Voltaren Gel TOP 12/18/19 12:57 1 gm QIDPRN PRN Administration PAIN Diltiazem HCl 120 mg 11/17/19 10:00 11/19/19 10:14 Cardizem Cd 120 Mg PO 12/14/19 09:59 120 mg DAILY [facility] Administration Docusate Sodium 100 mg 11/16/19 12:00 11/19/19 21:28 Colace 100 Mg PO 12/16/19 11:59 Not Given BID [facility] Ergocalciferol 50,000 unit 11/20/19 10:00 Vitamin D2 PO 12/13/19 09:59 Q7D [facility] Folic Acid 1 mg 11/17/19 10:00 11/19/19 10:15 Folate 1 Mg PO 12/13/19 09:59 1 mg DAILY [facility] Administration Hydralazine HCl 50 mg 11/16/19 22:00 11/19/19 21:27 Apresoline 25 Mg Tablet PO 12/12/19 21:59 50 mg BID [facility] Administration Insulin Human Regular 0 unit 11/16/19 10:24 11/19/19 13:49 Novolin R SQ 12/12/19 12:44 8 unit UD PRN Administration ACCUCHEK Magnesium Oxide 400 mg 11/16/19 22:00 11/19/19 21:27 Mag-Ox 400 PO 12/12/19 21:59 400 mg BID [facility] Administration Methylprednisolone 4 mg 11/17/19 10:00 11/19/19 10:15 Medrol 4 Mg PO 12/13/19 09:59 4 mg DAILY [facility] Administration Metoprolol Tartrate 25 mg 11/16/19 22:00 11/19/19 21:27 Lopressor 25mg Tab PO 12/12/19 21:59 25 mg BID [facility] Administration Mycophenolate 500mg 3 each 11/16/19 22:00 11/19/19 21:41 Tablet PO 12/13/19 09:59 3 each BID [facility] Administration Potassium Chloride 20 meq 11/16/19 22:00 11/19/19 21:27 Klor Con 10 Meq PO 12/12/19 21:59 20 meq BID [facility] Administration Simvastatin 10 mg 11/16/19 22:00 11/19/19 21:27 Zocor 10mg PO 12/12/19 21:59 10 mg HS [facility] Administration Tuberculin PPD 5 unit 11/28/19 10:00 Aplisol ID 11/28/19 10:01 DAILY [facility] Discontinued Medications Generic Name Dose Route Start Last Admin Trade Name Freq PRN Reason Stop Dose Admin Gabapentin 300 mg 11/17/19 02:49 11/17/19 02:53 Neurontin 300 Mg PO 11/17/19 02:50 300 mg ONCE ONE Administration Gabapentin 300 mg 11/17/19 10:00 11/18/19 10:08 Neurontin 300 Mg PO 12/17/19 09:59 Not Given BID [facility] Gabapentin 300 mg 11/18/19 06:55 11/18/19 06:56 Neurontin 300 Mg PO 11/18/19 06:56 300 mg ONCE ONE Administration Gabapentin 200 mg 11/18/19 22:00 11/19/19 10:19 Neurontin 100 Mg PO 12/18/19 21:59 Not Given BID [facility] Ceftriaxone Sodium/Dextrose 1 g in 50 mls @ 100 mls/hr 11/16/19 22:00 21:02 Rocephin 1 Gm-D5w 50 Ml Bag IV 12/15/19 21:59 100 mls/hr Q24H22 [facility] Administration Morphine Sulfate 4 mg 11/16/19 10:24 11/17/19 08:28 Morphine Sulfate 4 Mg Inj IV 11/17/19 18:23 4 mg Q4H PRN PRN Administration PAIN Tuberculin PPD 5 unit 11/17/19 10:00 11/17/19 08:27 Aplisol ID 11/17/19 10:01 5 unit DAILY [facility] Administration Intake & Output (Last 24 hours) 11/17/19 11/18/19 11/19/19 11/20/19 11:59 11:59 11:59 11:59 Intake Total 1080 786 855 2397 Output Total 1550 383 340 5406 Balance -470 -310 -510 -145 Weight 75 kg 72.6 kg 72.6 kg Orders (Last 24 hours) Category Date Time Status BMP Q14D Lab 11/30/19 04:00 Ordered Cyanocobalamin 1000 Mcg/ml [Cyanocobalamin B-12 1000 Med 11/21/19 10:00 Active MCG/ML] 1,000 mcg IM Q7D Ergocalciferol (Vitamin D2) [Vitamin D2] Med 11/20/19 10:00 Active 50,000 unit PO Q7D Tuberculin,Purif.prot.deriv. [Aplisol] Med 11/28/19 10:00 Active 5 unit ID DAILY Patient Care Notes (Last 24 hours) 11/19/19 16:58 Nursing Note by Franco Guillen Dr office called stated received fax to stop IV abx, ok to DC IV abx, no new order for PO Initialized on 11/19/19 16:58 - END OF NOTE 11/19/19 15:20 Physical Therapy Note by Korin Givens PATIENT DEMOS SIGNIFICANT IMPROVEMENT IN FUNCTIONAL MOBILITY TOLERANCE. ABLE TO RESISTIVE WALK WITH 1# ANKLE CUFFS 600' IN HALLWAY AM AND PM WITH ROLLATOR WALKER AND CGA. FUNCTIONAL TRANSFERS AND TOILETING WITH CGA/SBA. 3L O2 NC SUPPLEMENT TO MAINTAIN O2 SATS > 93% THROUGHOUT ACTIVITY; 97-98% AT REST. WILL CONTINUE TO MAXIMIZE POTENTIAL FOR RETURN HOME. Initialized on 11/19/19 15:20 - END OF NOTE 11/19/19 09:38 Case Management Note by Kate Royal S/W PATIENT THIS AM. SWING BED PAPERWORK SIGNED. PATIENT PLANS TO BE STRONG ENOUGH TO WALK WELL PRIOR DISCHARGING HOME. HE PLANS TO CONTINU REHAB IN SWINGBED UNTIL HE IS ABLE TO WALK. PATIENT WILL THEN RETURN HOME. HE LIVES ALONE BUT REFUSED HOME HEALTH SERVICES. HE STATED HE HAS LOTS OF FAMILY SUPPORT AND [facility] GOODSON DOES HIS MEDICATIONS. Initialized on 11/19/19 09:38 - END OF NOTE Code(s): R53.81 - OTHER MALAISE (2) Chronic renal disease, stage 4, severely decreased glomerular filtration rate (GFR) between 15-29 mL/min/1.73 square meter Current Visit: Yes Status: Chronic Code(s): N18.4 - CHRONIC KIDNEY DISEASE, STAGE 4 (SEVERE) (3) CHF (congestive heart failure), NYHA class III Current Visit: Yes Status: Chronic Qualifiers: Congestive heart failure type: combined Code(s): I50.9 - HEART FAILURE, UNSPECIFIED (4) COPD (chronic obstructive pulmonary disease) Current Visit: Yes Status: Chronic (5) HTN (hypertension), benign Current Visit: Yes Status: Chronic Code(s): I10 - ESSENTIAL (PRIMARY) HYPERTENSION
[2019-11-20] MEDS: Voltaren GEL TOP PRN (09:03)
[2019-11-20] MEDS: Neurontin 100 MG PO SCH ×3 (09:56→22:50)
[2019-11-20] MEDS ORDERED: VITAMIN D2 PO SCH (10:00)
[2019-11-20] MEDS: Cardizem CD 120 MG PO SCH (10:09)
[2019-11-20] MEDS: BUMEX 1 MG PO SCH ×2 (10:09→17:54)
[2019-11-20] MEDS: Apresoline 25 MG TABLET PO SCH ×2 (10:09→22:50)
[2019-11-20] MEDS: ECOTRIN 81 MG PO SCH (10:10)
[2019-11-20] MEDS: MEDROL 4 MG PO SCH (10:10)
[2019-11-20] MEDS: Klor Con 10 MEQ PO SCH ×2 (10:10→22:49)
[2019-11-20] MEDS: FOLATE 1 MG PO SCH (10:10)
[2019-11-20] MEDS: Lopressor 25MG Tab PO SCH ×2 (10:10→22:50)
[2019-11-20] MEDS: MAG-OX 400 PO SCH ×2 (10:10→22:50)
[2019-11-20] MEDS: PATIENT OWN MEDICATION PO SCH ×2 (10:11→22:51)
[2019-11-20] MEDS: Colace 100 MG PO SCH ×2 (10:30→22:51)
[2019-11-20] MEDS: NovoLIN R SQ PRN (13:57)
[2019-11-20] MEDS: Zocor 10MG PO SCH (22:50)
[2019-11-21] MEDS: NORCO 5/325 MG PO PRN (05:13)
[2019-11-21] MEDS: Neurontin 100 MG PO SCH ×3 (06:56→22:24)
[2019-11-21] MEDS: Voltaren GEL TOP PRN (06:58)
[2019-11-21] MEDS: PROVENTIL 2.5 MG/3 ML NEB IH SCH (07:17)
[2019-11-21] MEDS: BUMEX 1 MG PO SCH ×2 (09:16→16:44)
[2019-11-21] MEDS: Cardizem CD 120 MG PO SCH (09:16)
[2019-11-21] MEDS: ECOTRIN 81 MG PO SCH (09:16)
[2019-11-21] MEDS: Apresoline 25 MG TABLET PO SCH ×2 (09:16→22:23)
[2019-11-21] MEDS: Klor Con 10 MEQ PO SCH ×2 (09:16→22:24)
[2019-11-21] MEDS: FOLATE 1 MG PO SCH (09:16)
[2019-11-21] MEDS: MAG-OX 400 PO SCH ×2 (09:17→22:24)
[2019-11-21] MEDS: MEDROL 4 MG PO SCH (09:17)
[2019-11-21] MEDS: Lopressor 25MG Tab PO SCH ×2 (09:17→22:24)
[2019-11-21] MEDS: Colace 100 MG PO SCH ×2 (09:28→22:24)
[2019-11-21] MEDS ORDERED: Cyanocobalamin B-12 1000 MCG/ML IM SCH (10:00)
[2019-11-21] MEDS: NovoLIN R SQ PRN (12:11)
[2019-11-21] MEDS: PATIENT OWN MEDICATION PO SCH ×2 (14:39→22:25)
[2019-11-21] MEDS: Zocor 10MG PO SCH (22:25)
[2019-11-22] MEDS: NORCO 5/325 MG PO PRN (03:32)
[2019-11-22] MEDS: Voltaren GEL TOP PRN ×2 (03:33→09:22)
[2019-11-22] MEDS: Neurontin 100 MG PO SCH ×2 (05:35→15:04)
[2019-11-22] MEDS: PROVENTIL 2.5 MG/3 ML NEB IH SCH (06:41)
[2019-11-22 07:11] VITALS: BP 150/63; PULSE 75; O2SAT 97
[2019-11-22] MEDS: NovoLIN R SQ PRN ×2 (07:35→13:02)
[2019-11-22] MEDS: BUMEX 1 MG PO SCH (09:21)
[2019-11-22] MEDS: Lopressor 25MG Tab PO SCH (09:21)
[2019-11-22] MEDS: Apresoline 25 MG TABLET PO SCH (09:21)
[2019-11-22] MEDS: FOLATE 1 MG PO SCH (09:21)
[2019-11-22] MEDS: Colace 100 MG PO SCH (09:21)
[2019-11-22] MEDS: MEDROL 4 MG PO SCH (09:21)
[2019-11-22] MEDS: Klor Con 10 MEQ PO SCH (09:21)
[2019-11-22] MEDS: MAG-OX 400 PO SCH (09:21)
[2019-11-22] MEDS: ECOTRIN 81 MG PO SCH (09:21)
[2019-11-22] MEDS: Cardizem CD 120 MG PO SCH (09:21)
[2019-11-22] MEDS: PATIENT OWN MEDICATION PO SCH (09:24)
[2019-11-28] MEDS ORDERED: Aplisol ID SCH (10:00)
== END 2019-11-22 15:28 | disposition home or self-care (01) | DRG 292 ==
LOC: MED SURG 10:00
PROVIDERS: ADMIT General Practice; ATTEND General Practice
DX: I13.0 Hypertensive heart and chronic kidney disease with heart failure and stage 1 through stage 4 chronic kidney disease, or unspecified chronic kidney disease (principal); N18.4 Chronic kidney disease, stage 4 (severe); R50.9 Fever, unspecified; I50.9 Heart failure, unspecified; I25.10 Atherosclerotic heart disease of native coronary artery without angina pectoris; J44.9 Chronic obstructive pulmonary disease, unspecified; Z79.899 Other long term (current) drug therapy
CPT/HCPCS: 36415; 82947; 82962; 94150; 94640; 94760; J0696; J2270; J3420; J7609; 97110-GP; A9270-GY

== ENCOUNTER 2020-04-24 11:35 | Inpatient (IN) | payer MEDICARE ==
[2020-04-24] MEDS ORDERED: Sodium Chloride 0.9% 1000 ML 1,000 ML IV SCH (13:15)
[2020-04-24 13:37] LABS: Hematocrit 35.8 % (42-50); Hemoglobin 11.5 gm/dl (12.5-18.0); Mean Cell Volume 106.9 fl (78-100); Mean Corpuscular Hemoglobin 34.3 pg (26-32); Mean Corpuscular Hgb Concent. 32.1 g/dl (32-36); Mean Platelet Volume 9.6 fl (7.5-11.0); Platelet Count 171 K/mm3 (150-450); Red Blood Count 3.35 M/mm3 (4.1-5.6); Red Cell Distribution Width 15.1 % (11.5-14.0); White Blood Count 9.3 K/mm3 (4.0-10.5)
--- NOTE | 2020-04-24 13:59 | XRAY ---
Exam: Two-view chest from 04/24/2020. Comparison: CT of the chest without IV contrast from 02/23/2020 and two-view chest film series from 11/12/2019. Indication: History of lung cancer in 2018, COPD, heart disease with stents, previous smoker. Findings: Upright PA and lateral chest films were obtained. The heart size is normal. Extensive coronary artery vascular calcification is seen. Prominent calcified pleural plaquing is seen within the lower two thirds of the left lung representing no change. Some bullous emphysematous changes are seen within both upper lobes, right slightly greater than left. Granulomatous calcifications overlie the right hilum. There is a small calcified granuloma at the central right lung base. No definite airspace lung infiltrates, vascular congestion, pneumothorax, or pleural effusion is seen. There is moderate biapical pleural thickening/scarring. The bones are demineralized. There is evidence of prior kyphoplasty at both T8 and T9. This is unchanged. Impression: 1. Emphysematous bullous changes are seen within both upper lung bob, right greater than left. I also note extensive chronic pleural plaquing within the lower two thirds of the left lung field and moderate biapical pleural thickening/scarring. 2. Old healed granulomatous disease is seen on the right. 3. No acute cardiopulmonary disease is seen. 4. Extensive coronary artery vascular calcification, bone demineralization, and T8-T9 prior kyphoplasty are again seen.
[2020-04-24] MEDS: NORCO 5/325 MG PO PRN ×2 (14:07→19:51)
[2020-04-24 14:26] LABS: ALBUMIN 3.7 g/dL (3.5-5.0); ANION GAP 9.8 MEQ/L (5-15); BILIRUBIN,TOTAL 0.8 mg/dL (0.2-1.3); Calcium 8.9 mg/dL (8.4-10.2); Creatinine 1 2.04 mg/dL (0.66-1.25); Total Protein 7.3 g/dL (6.3-8.2)
[2020-04-24 14:46] LABS: Appearance CLEAR (CLEAR); Bilirubin NEGATIVE (NEGATIVE); Blood NEGATIVE Ery/ul (0-5); Glucose NEGATIVE (NEGATIVE); Ketones NEGATIVE (NEGATIVE); Leukocyte Esterase NEGATIVE (NEGATIVE); Nitrite NEGATIVE (NEGATIVE); Protein,Urine Dip NEGATIVE (Negative); Specific Gravity 1.006 (1.005-1.025); Urobilinogen NEGATIVE mg/dL (0-1)
--- NOTE | 2020-04-24 15:52 | PCM.BN ---
Brief Admission Note - Admission Note Brief Admisson Note: Patient admitted @ 04/24/20 12:13 to MED SURG. Medication List reviewed and reconciled. patient seen and examined, admit note on chart for h and p from Dr De La Torre, prelim venous doppler shows clot throughout RLE venous system. will add lovenox, cover with rocephin/vanc
[2020-04-24] MEDS ORDERED: VANCOCIN 1 GM VIAL*** 1 GM in Sodium Chloride 0.9% 250 ML 250 ML IV SCH (16:00)
[2020-04-24] MEDS: ROCEPHIN 1 Gm-D5w 50 ml Bag** 1 G/50 ML IVPB IV SCH (16:10)
--- NOTE | 2020-04-24 16:29 | XRAY ---
Exam: Right lower extremity duplex Doppler venous ultrasound examination from 04/24/2020. Comparison: Bilateral lower extremity duplex Doppler venous ultrasound exam from 01/29/2015. Indication: Cellulitis. Findings: The examination was carried out in the usual manner with multiple harper scale images, color flow images, and Doppler tracings of the right lower extremity. Extensive nonocclusive clot is seen within the right common femoral vein, and distal greater saphenous vein, the proximal, mid, and distal superficial femoral vein, profunda femoral vein, popliteal vein, and posterior tibial vein at the level of the ankle. There was no significant compression of any of the deep venous segments, except for one of the distal posterior tibial veins. Normal color blood flow is seen within one of the distal posterior tibial veins as well. There appears to be some subcutaneous edema about the distal right lower leg. Doppler data reveal lack of spontaneous and phasic waveforms. Impression: 1. Extensive nonoccluding clot is seen from the level of the right ankle to the right groin within the right lower extremity. Only one of the 2 distal posterior tibial veins was compressible.
[2020-04-24] MEDS ORDERED: MEDICATION INTERVENTION PO SCH (17:00)
[2020-04-24] MEDS: BUMEX 1 MG PO SCH (17:08)
[2020-04-24] MEDS: ENOXAPARIN SODIUM SQ SCH (17:09)
[2020-04-24] MEDS: VANCOMYCIN 1 GRAM/200 ML BAG 1 GM/200 ML PIGGYBACK IV SCH (17:11)
--- NOTE | 2020-04-24 19:38 | XRAY ---
Exam: 3 view portable lumbar spine series from 04/24/2020. Comparison: CT of the lumbar spine without IV contrast from 02/23/2020 and five-view lumbar spines series from 10/08/2017. Indication: Patient fell 2 weeks ago, complains of back pain since then. Findings: Portable AP, lateral, and coned-down lateral film of the lumbosacral junction were obtained. There are 5 [id number] lumbar-type vertebra. The bones are demineralized. Compared to the lateral lumbar spine radiograph from 10/08/[address] lumbar spine images of 02/23/2020, there is new mild generalized compression deformity of the superior vertebral endplate of L2. This could be acute or subacute. In addition, there is new moderate central superior L5 vertebral endplate compression which could be acute or subacute. This appears to be new from the CT study from 02/23/2020. There is also minimal central L4 superior vertebral endplate compression which is about the same as the CT lumbar spine study from 02/23/2020. The interspace heights adequately maintained, except for perhaps slight relative narrowing of the L3-L4 interspace height suggesting some mild degenerative disc disease at this level.. No AP subluxation is seen. Mild anterior lateral vertebral endplate spurring is seen throughout the lumbar spine. Advanced atherosclerotic vascular calcification is seen within the abdominal aorta and proximal iliac arteries. There is a minimal focal contour bulge of the distal abdominal aorta at the L3-L4 level representing no significant interval change from 10/08/2017. A true abdominal aortic aneurysm measuring 3 cm or greater in diameter is not seen. The sacroiliac joints appear grossly unremarkable. Impression: 1. There is a new mild generalized L2 superior vertebral endplate compression fracture deformity as compared to the 02/23/[address] study. This is probably acute or subacute. 2. In addition, there is a new moderate central L5 superior vertebral endplate compression fracture deformity as compared to the CT study from 02/23/2020. Therefore, I believe this is acute or subacute. 3. Early/mild degenerative disc disease at L3-L4. I also note mild stable L4 central superior vertebral endplate compression deformity representing no change from the lumbar spine CT study from 02/23/2020. 4. Diffuse bone demineralization is evident. 5. Mild focal bulging of the infrarenal abdominal aorta at the L3-L4 level representing no change from 02/23/2020. A true aneurysm is not seen at this time.
[2020-04-24] MEDS: Klor Con 10 MEQ PO SCH (21:00)
[2020-04-24] MEDS: MAG-OX 400 PO SCH (21:01)
[2020-04-24] MEDS: Neurontin 400 MG PO SCH (21:01)
[2020-04-24] MEDS: ZOCOR 20MG PO SCH (21:01)
[2020-04-24] MEDS: Lopressor 50 MG PO SCH (21:01)
[2020-04-24] MEDS ORDERED: NON-FORMULARY ITEM (Bumetanide [Bumex] 2 MG) PO SCH (22:00)
[2020-04-25 05:23] LABS: Hematocrit 34.3 % (42-50); Hemoglobin 10.9 gm/dl (12.5-18.0); Mean Cell Volume 106.9 fl (78-100); Mean Corpuscular Hgb Concent. 31.8 g/dl (32-36); Mean Platelet Volume 9.4 fl (7.5-11.0); Platelet Count 162 K/mm3 (150-450); Red Blood Count 3.21 M/mm3 (4.1-5.6); Red Cell Distribution Width 14.9 % (11.5-14.0); White Blood Count 6.9 K/mm3 (4.0-10.5)
[2020-04-25 05:33] LABS: Calcium 8.6 mg/dL (8.4-10.2); Creatinine 1 1.83 mg/dL (0.66-1.25); Potassium 3.3 mmol/L (3.5-5.1)
[2020-04-25] MEDS: ENOXAPARIN SODIUM SQ SCH ×2 (05:38→17:06)
[2020-04-25 05:43] LABS: ANION GAP 8.3 MEQ/L (5-15)
[2020-04-25 05:56] LABS: Lymphocytes 2 % (24-44); Monocyte 3 % (0.0-12.0); Neutrophils 95 % (36.-66.); Total Cells Counted 100
[2020-04-25 05:57] LABS: ANISOCYTOSIS 1+; Platelet Estimate NORMAL (NORMAL); Poikilocytosis 1+
--- NOTE | 2020-04-25 08:31 | PCM.NOTE ---
Date and Time: 04/25/20828 Subjective Assessment: no new complaints, patient denies pain currently. he is resting comfortably Objective Exam General Appearance: no apparent distress, alert Wound Assessment: Skin/Wound Assessment Wound/Incision Assessment Start: 04/24/20 15:34 Text: Status: Active Freq: Q6H Protocol: Document 04/25/20 03:00 ST (Rec: 04/25/20 03:09 ST [id number]) Wound Photo Photo Taken No Respiratory Exam: normal breath sounds, lungs clear, No respiratory distress Cardiovascular Exam: regular rate/rhythm, normal heart sounds Gastrointestinal/Abdomen Exam: soft, No tenderness, No mass Extremity Exam: other (erythema and tenderness to right lower leg) OBJECTIVE DATA Vital Signs: Vital Signs - 24 hr Temp Pulse Resp BP Pulse Ox 04/25/20 08:00 97.8 F 57 L 16 134/63 95 04/25/20 04:00 97 F 50 L 16 139/62 100 04/24/20 23:59 97.2 F 52 L 16 136/66 100 04/24/20 19:35 97.8 F 67 14 168/72 90 L 04/24/20 19:00 96 04/24/20 16:16 97.6 F 63 18 125/60 98 04/24/20 12:16 98.5 F 58 L 20 157/70 96 Oxygen-Last 24 hours Oxygen Flowrate (L/min)-RT 2 Pain Assessment - Last Documented Pain Intensity 2 Pain Scale Used 0-10 Pain Scale Intake and Output: Intake & Output 04/22/20 04/23/20 04/24/20 04/25/20 11:59 11:59 11:59 11:59 Intake Total 1914 Output Total 1025 Balance 889 Weight 80.9 kg Lab Results: Lab Results-Last 24 Hours 04/24/20 04/24/20 04/24/20 Range/Units 13:30 13:30 14:33 WBC 9.3 (4.0-10.5) K/mm3 RBC 3.35 L (4.1-5.6) M/mm3 Hgb 11.5 L (12.5-18.0) gm/dl Hct 35.8 L (42-50) % MCV 106.9 H (78-100) fl MCH 34.3 H (26-32) pg MCHC 32.1 (32-36) g/dl RDW 15.1 H (11.5-14.0) % Plt Count 171 (150-450) K/mm3 MPV 9.6 (7.5-11.0) fl Segmented Neutrophils (36.-66.) % Lymphocytes (Manual) (24-44) % Monocytes (Manual) (0.0-12.0) % Platelet Estimate (NORMAL) RBC Morphology Poikilocytosis Anisocytosis Sodium 137 (137-145) mmol/L Potassium 4.0 (3.5-5.1) mmol/L Chloride 92 L (98-107) mmol/L Carbon Dioxide 39 H (22-30) mmol/L Anion Gap 9.8 (5-15) MEQ/L BUN 65 H (9-20) mg/dL Creatinine 2.04 H (0.66-1.25) mg/dL Estimated GFR 33.7 ML/MIN Glucose 139 H (74-106) mg/dL Calcium 8.9 (8.4-10.2) mg/dL Total Bilirubin 0.80 (0.2-1.3) mg/dL AST 23 (17-59) U/L ALT 14 (0-50) U/L Alkaline Phosphatase 102 (38-126) U/L Serum Total Protein 7.3 (6.3-8.2) g/dL Albumin 3.7 (3.5-5.0) g/dL Urine Color STRAW (YELLOW) Urine Appearance CLEAR (CLEAR) Urine pH 7.0 (5-6) Ur Specific [place] 1.006 (1.005-1.025) Urine Protein NEGATIVE (Negative) Urine Ketones NEGATIVE (NEGATIVE) Urine Blood NEGATIVE (0-5) Marcelino/ul Urine Nitrite NEGATIVE (NEGATIVE) Urine Bilirubin NEGATIVE (NEGATIVE) Urine Urobilinogen NEGATIVE (0-1) mg/dL Ur Leukocyte Esterase NEGATIVE (NEGATIVE) Urine WBC (Auto) NONE (0-5) /HPF Urine RBC (Auto) NONE (0-2) /HPF U Epithel Cells (Auto) NONE (FEW) /HPF Urine Bacteria (Auto) NONE (NEGATIVE) /HPF Urine Culture Reflexed NO (NO) Urine Glucose NEGATIVE (NEGATIVE) mg/dL 04/25/20 04/25/20 Range/Units 05:00 05:00 WBC 6.9 (4.0-10.5) K/mm3 RBC 3.21 L (4.1-5.6) M/mm3 Hgb 10.9 L (12.5-18.0) gm/dl Hct 34.3 L (42-50) % MCV 106.9 H (78-100) fl MCH 34.0 H (26-32) pg MCHC 31.8 L (32-36) g/dl RDW 14.9 H (11.5-14.0) % Plt Count 162 (150-450) K/mm3 MPV 9.4 (7.5-11.0) fl Segmented Neutrophils 95 H (36.-66.) % Lymphocytes (Manual) 2 L (24-44) % Monocytes (Manual) 3 (0.0-12.0) % Platelet Estimate NORMAL (NORMAL) RBC Morphology ABNORMAL Poikilocytosis 1+ Anisocytosis 1+ Sodium 137 (137-145) mmol/L Potassium 3.3 L (3.5-5.1) mmol/L Chloride 92 L (98-107) mmol/L Carbon Dioxide 40 H (22-30) mmol/L Anion Gap 8.3 (5-15) MEQ/L BUN 59 H (9-20) mg/dL Creatinine 1.83 H (0.66-1.25) mg/dL Estimated GFR 38.2 ML/MIN Glucose 106 (74-106) mg/dL Calcium 8.6 (8.4-10.2) mg/dL Total Bilirubin (0.2-1.3) mg/dL AST (17-59) U/L ALT (0-50) U/L Alkaline Phosphatase (38-126) U/L Serum Total Protein (6.3-8.2) g/dL Albumin (3.5-5.0) g/dL Urine Color (YELLOW) Urine Appearance (CLEAR) Urine pH (5-6) Ur Specific [place] (1.005-1.025) Urine Protein (Negative) Urine Ketones (NEGATIVE) Urine Blood (0-5) Marcelino/ul Urine Nitrite (NEGATIVE) Urine Bilirubin (NEGATIVE) Urine Urobilinogen (0-1) mg/dL Ur Leukocyte Esterase (NEGATIVE) Urine WBC (Auto) (0-5) /HPF Urine RBC (Auto) (0-2) /HPF U Epithel Cells (Auto) (FEW) /HPF Urine Bacteria (Auto) (NEGATIVE) /HPF Urine Culture Reflexed (NO) Urine Glucose (NEGATIVE) mg/dL Radiology Exams: Radiology Procedures Category Date Time Status CHEST 2 VIEWS (PA AND LAT) Routine Exams 04/24/20 13:11 Completed LUMBAR LIMITED (2 OR 3 VIEWS) Routine Exams 04/24/20 17:02 Completed VENOUS UNILAT/LIMITED EXTREMIT [US] Routine Exams 04/24/20 16:01 Completed Multi-Disciplinary Progress Notes: Multi-Disciplinary Progress Notes 04/24/20 16:23 Pharmacy Note by Diaz Schneider Vancomycin dose adjusted to once daily for renal function. Will check trough on . Initialized on 04/24/20 16:23 - END OF NOTE Assessment/Plan (1) DVT (deep venous thrombosis) Current Visit: Yes Status: Acute Assessment & Plan: on lovenox, hx of gi bleed with antibodies in blood per family will get type and screen proactively Code(s): I82.409 - ACUTE EMBOLISM AND THOMBOS UNSP DEEP VN UNSP LOWER EXTREMITY (2) Cellulitis of both lower extremities Current Visit: Yes Status: Acute Assessment & Plan: continue vanc/rocephin Code(s): L03.115 - CELLULITIS OF RIGHT LOWER LIMB; L03.116 - CELLULITIS OF LEFT LOWER LIMB
[2020-04-25] MEDS: BUMEX 1 MG PO SCH ×2 (09:06→17:03)
[2020-04-25] MEDS: MEDROL 4 MG PO SCH (09:07)
[2020-04-25] MEDS: Neurontin 100 MG PO SCH (09:07)
[2020-04-25] MEDS: Klor Con 10 MEQ PO SCH ×2 (09:07→21:36)
[2020-04-25] MEDS: MAG-OX 400 PO SCH ×2 (09:07→21:36)
[2020-04-25] MEDS: Lopressor 50 MG PO SCH ×2 (09:07→21:37)
[2020-04-25] MEDS: NORCO 5/325 MG PO PRN ×3 (09:07→21:36)
[2020-04-25] MEDS: ROCEPHIN 1 Gm-D5w 50 ml Bag** 1 G/50 ML IVPB IV SCH (09:08)
[2020-04-25] MEDS ORDERED: Neurontin 100 MG PO SCH (10:00)
[2020-04-25] MEDS ORDERED: AZATHIOPRINE 75 MG PO SCH (10:00)
[2020-04-25] MEDS: Sodium Chloride 0.9% W/ 20 mEq KCl/LITER 1,000 ML IV SCH (10:54)
[2020-04-25] MEDS: VANCOMYCIN 1 GRAM/200 ML BAG 1 GM/200 ML PIGGYBACK IV SCH (17:07)
[2020-04-25] MEDS: Neurontin 400 MG PO SCH (21:36)
[2020-04-25] MEDS: ZOCOR 20MG PO SCH (21:37)
[2020-04-26] MEDS: ENOXAPARIN SODIUM SQ SCH ×2 (05:14→17:17)
[2020-04-26 05:56] LABS: Hematocrit 34.5 % (42-50); Hemoglobin 10.9 gm/dl (12.5-18.0); Mean Cell Volume 108.2 fl (78-100); Mean Corpuscular Hemoglobin 34.2 pg (26-32); Mean Corpuscular Hgb Concent. 31.6 g/dl (32-36); Mean Platelet Volume 9.2 fl (7.5-11.0); Platelet Count 168 K/mm3 (150-450); Red Blood Count 3.19 M/mm3 (4.1-5.6); Red Cell Distribution Width 14.8 % (11.5-14.0); White Blood Count 5.9 K/mm3 (4.0-10.5)
[2020-04-26 06:19] LABS: ANION GAP 9.4 MEQ/L (5-15); Calcium 8.3 mg/dL (8.4-10.2); Creatinine 1 1.64 mg/dL (0.66-1.25); Potassium 3.6 mmol/L (3.5-5.1)
[2020-04-26] MEDS: NORCO 5/325 MG PO PRN ×3 (07:54→17:17)
[2020-04-26] MEDS: Sodium Chloride 0.9% W/ 20 mEq KCl/LITER 1,000 ML IV SCH (07:56)
--- NOTE | 2020-04-26 09:33 | PCM.NOTE ---
Date and Time: 04/26/20929 Subjective Assessment: no pain in leg, redness improved. unable to walk well due to low back pain, insists he will go home with [facility] and help of niece who is a nurse Objective Exam General Appearance: no apparent distress, alert Wound Assessment: Skin/Wound Assessment Wound/Incision Assessment Start: 04/24/20 15:34 Text: Status: Active Freq: Q6H Protocol: Document 04/26/20 03:00 ST (Rec: 04/26/20 04:[address] [id number]) Wound Photo Photo Taken No Respiratory Exam: normal breath sounds, lungs clear, No respiratory distress Cardiovascular Exam: regular rate/rhythm, normal heart sounds Gastrointestinal/Abdomen Exam: soft, No tenderness, No mass Extremity Exam: other (erythema improving to right lower leg) Back Exam: vertebral tenderness, decreased range of motion OBJECTIVE DATA Vital Signs: Vital Signs - 24 hr Temp Pulse Resp BP Pulse Ox 04/26/20 08:00 98.0 F 62 16 144/65 99 04/26/20 06:44 98 04/26/20 04:10 98.2 F 78 20 180/72 99 04/26/20 00:01 98.3 F 65 22 144/65 96 04/25/20 20:00 98.2 F 62 21 176/75 99 04/25/20 19:40 99 04/25/20 15:56 98.1 F 60 16 170/75 95 04/25/20 11:54 97.7 F 56 L 17 153/67 93 L Pain Assessment - Last Documented Pain Intensity 2 Pain Scale Used 0-10 Pain Scale Intake and Output: Intake & Output 04/23/20 04/24/20 04/25/20 04/26/20 11:59 11:59 11:59 11:59 Intake Total 2154 3674 Output Total 1885 1500 Balance 329 2174 Weight 80.9 kg Lab Results: Lab Results-Last 24 Hours 04/26/20 04/26/20 Range/Units 05:00 05:00 WBC 5.9 (4.0-10.5) K/mm3 RBC 3.19 L (4.1-5.6) M/mm3 Hgb 10.9 L (12.5-18.0) gm/dl Hct 34.5 L (42-50) % MCV 108.2 H (78-100) fl MCH 34.2 H (26-32) pg MCHC 31.6 L (32-36) g/dl RDW 14.8 H (11.5-14.0) % Plt Count 168 (150-450) K/mm3 MPV 9.2 (7.5-11.0) fl Sodium 139 (137-145) mmol/L Potassium 3.6 (3.5-5.1) mmol/L Chloride 96 L (98-107) mmol/L Carbon Dioxide 37 H (22-30) mmol/L Anion Gap 9.4 (5-15) MEQ/L BUN 50 H (9-20) mg/dL Creatinine 1.64 H (0.66-1.25) mg/dL Estimated GFR 43.4 ML/MIN Glucose 173 H (74-106) mg/dL Calcium 8.3 L (8.4-10.2) mg/dL Radiology Exams: Radiology Procedures Category Date Time Status CHEST 2 VIEWS (PA AND LAT) Routine Exams 04/24/20 13:11 Completed LUMBAR LIMITED (2 OR 3 VIEWS) Routine Exams 04/24/20 17:02 Completed VENOUS UNILAT/LIMITED EXTREMIT [US] Routine Exams 04/24/20 16:01 Completed Multi-Disciplinary Progress Notes: Multi-Disciplinary Progress Notes 04/26/20 08:39 Case Management Note by Kate Royal S/W MITESH WHO IS CAREGIVER FOR PATIENT- SHE IS INTERESTED IN SWINGBED FOR PATIENT SO SHE CAN GET PATIENT'S HOUSE CLEANED UP AND HOME CARE ARRANGED IF NECESSARY. PATIENT STILL REFUSING TO GO TO REHAB AND SHE WANTS TO HONOR HIS WISHES. WILL S/W PHYSICAL THERAPY TO SEE IF THIS IS APPROPRIATE FOR PATIENT Initialized on 04/26/20 08:39 - END OF NOTE Assessment/Plan (1) Compression fx, lumbar spine Current Visit: Yes Status: Acute Assessment & Plan: related to falls, discussed with huge clot burden in right lower leg not a good surgical candidate for kyphoplasty due to need for anticoagulation. pain control and PT recommended (2) DVT (deep venous thrombosis) Current Visit: Yes Status: Acute Assessment & Plan: lovenox coverage Code(s): I82.409 - ACUTE EMBOLISM AND THOMBOS UNSP DEEP VN UNSP LOWER EXTREMITY (3) Cellulitis of both lower extremities Current Visit: Yes Status: Acute Assessment & Plan: on vanc/rocephin Code(s): L03.115 - CELLULITIS OF RIGHT LOWER LIMB; L03.116 - CELLULITIS OF LEFT LOWER LIMB
[2020-04-26] MEDS: BUMEX 1 MG PO SCH ×2 (10:09→17:17)
[2020-04-26] MEDS: Klor Con 10 MEQ PO SCH ×2 (10:09→21:13)
[2020-04-26] MEDS: Colace 100 MG PO SCH (10:09)
[2020-04-26] MEDS: Lopressor 50 MG PO SCH ×2 (10:10→21:12)
[2020-04-26] MEDS: ROCEPHIN 1 Gm-D5w 50 ml Bag** 1 G/50 ML IVPB IV SCH (10:10)
[2020-04-26] MEDS: MEDROL 4 MG PO SCH (10:10)
[2020-04-26] MEDS: MAG-OX 400 PO SCH ×2 (10:10→21:13)
[2020-04-26] MEDS: DULCOLAX 5 MG PO PRN (10:10)
[2020-04-26] MEDS: Neurontin 100 MG PO SCH (10:10)
[2020-04-26 10:34] LABS: Eosinophil 1 % (0.00-3.0); Lymphocytes 4 % (24-44); Monocyte 7 % (0.0-12.0); Neutrophils 88 % (36.-66.); Total Cells Counted 100
[2020-04-26 10:40] LABS: Platelet Estimate NORMAL (NORMAL)
[2020-04-26 10:44] LABS: ANISOCYTOSIS 1+; Macrocytosis 1+
[2020-04-26 12:05] LABS: ABO TYPING A; RH TYPING POSITIVE
[2020-04-26 12:07] LABS: Antibody Screen POSITIVE (NEGATIVE)
[2020-04-26] MEDS: VANCOMYCIN 1 GRAM/200 ML BAG 1 GM/200 ML PIGGYBACK IV SCH (17:17)
[2020-04-26] MEDS: PERCOCET TABLET 5/325MG PO PRN (19:49)
[2020-04-26] MEDS: ZOCOR 20MG PO SCH (21:13)
[2020-04-26] MEDS: Neurontin 400 MG PO SCH (21:13)
[2020-04-27 05:04] LABS: Hematocrit 35.4 % (42-50); Mean Cell Volume 108.6 fl (78-100); Mean Corpuscular Hemoglobin 33.7 pg (26-32); Mean Corpuscular Hgb Concent. 31.1 g/dl (32-36); Mean Platelet Volume 8.8 fl (7.5-11.0); Platelet Count 175 K/mm3 (150-450); Red Blood Count 3.26 M/mm3 (4.1-5.6); Red Cell Distribution Width 14.9 % (11.5-14.0); White Blood Count 6.7 K/mm3 (4.0-10.5)
[2020-04-27] MEDS: ENOXAPARIN SODIUM SQ SCH (05:04)
[2020-04-27 05:25] LABS: Calcium 8.6 mg/dL (8.4-10.2); Creatinine 1 1.53 mg/dL (0.66-1.25); Potassium 4.4 mmol/L (3.5-5.1)
[2020-04-27] MEDS: Sodium Chloride 0.9% W/ 20 mEq KCl/LITER 1,000 ML IV SCH (05:38)
[2020-04-27 05:40] LABS: ANISOCYTOSIS 1+; Lymphocytes 16 % (24-44); Neutrophils 84 % (36.-66.); Poikilocytosis 1+; Polychromasia 1+; Total Cells Counted 100
[2020-04-27 05:41] LABS: Platelet Estimate NORMAL (NORMAL)
[2020-04-27 06:40] VITALS: O2SAT 99
--- NOTE | 2020-04-27 08:41 | PCM.DS ---
Discharge Summary Date of Admission: 04/24/20 15:51 Admitting Physician: SADIA GROVER Primary Care Provider: SADIA GROVER Allergies Allergies No Known Drug Allergies Allergy (Verified 11/12/19 13:44) Hospital Summary - Hospital Course Hospital Course: patient was admitted with pain and redness to right leg, weakness, fall and low back pain. found to have l-spine compression fx x 2 and extensive dvt in right leg. with pain control he is able to ambulate to the restroom, he refuses rehab stay. wants to go home with home health, unable to consider kyphoplasty due to extensive clot and need for anticoagulation so recommend PT, pain control and time to heal. - Vitals & Intake/Output Vital Signs: Vital Signs Temperature 97.8 F 04/27/20 07:27 Pulse Rate 67 04/27/20 07:27 Respiratory Rate 16 04/27/20 07:27 Blood Pressure 152/72 04/27/20 07:27 O2 Sat by Pulse Oximetry 99 04/27/20 07:27 Intake & Output: Intake & Output 04/24/20 04/25/20 04/26/20 04/27/20 11:59 11:59 11:59 11:59 Intake Total 2154 3674 2527 Output Total 1825 1500 1050 Balance 329 2174 1477 Weight 80.9 kg 80.9 kg - Lab Result Diagrams: 04/27/20 04:50 04/27/20 04:50 Lab Results-Last 24 Hrs: Lab Results-Last 24 Hours 04/26/20 04/26/20 04/27/20 Range/Units 05:00 05:00 04:50 WBC 6.7 (4.0-10.5) K/mm3 RBC 3.26 L (4.1-5.6) M/mm3 Hgb 11.0 L (12.5-18.0) gm/dl Hct 35.4 L (42-50) % MCV 108.6 H (78-100) fl MCH 33.7 H (26-32) pg MCHC 31.1 L (32-36) g/dl RDW 14.9 H (11.5-14.0) % Plt Count 175 (150-450) K/mm3 MPV 8.8 (7.5-11.0) fl Segmented Neutrophils 88 H 84 H (36.-66.) % Lymphocytes (Manual) 4 L 16 L (24-44) % Monocytes (Manual) 7 (0.0-12.0) % Eosinophils (Manual) 1 (0.00-3.0) % Platelet Estimate NORMAL NORMAL (NORMAL) RBC Morphology ABNORMAL ABNORMAL Polychromasia 1+ Poikilocytosis 1+ Anisocytosis 1+ 1+ Macrocytosis 1+ Sodium (137-145) mmol/L Potassium (3.5-5.1) mmol/L Chloride (98-107) mmol/L Carbon Dioxide (22-30) mmol/L Anion Gap (5-15) MEQ/L BUN (9-20) mg/dL Creatinine (0.66-1.25) mg/dL Estimated GFR ML/MIN Glucose (74-106) mg/dL Calcium (8.4-10.2) mg/dL ABO Group A Rh Factor POSITIVE Antibody Screen POSITIVE (NEGATIVE) 04/27/20 Range/Units 04:50 WBC (4.0-10.5) K/mm3 RBC (4.1-5.6) M/mm3 Hgb (12.5-18.0) gm/dl Hct (42-50) % MCV (78-100) fl MCH (26-32) pg MCHC (32-36) g/dl RDW (11.5-14.0) % Plt Count (150-450) K/mm3 MPV (7.5-11.0) fl Segmented Neutrophils (36.-66.) % Lymphocytes (Manual) (24-44) % Monocytes (Manual) (0.0-12.0) % Eosinophils (Manual) (0.00-3.0) % Platelet Estimate (NORMAL) RBC Morphology Polychromasia Poikilocytosis Anisocytosis Macrocytosis Sodium 141 (137-145) mmol/L Potassium 4.4 D (3.5-5.1) mmol/L Chloride 98 (98-107) mmol/L Carbon Dioxide 39 H (22-30) mmol/L Anion Gap 8.0 (5-15) MEQ/L BUN 45 H (9-20) mg/dL Creatinine 1.53 H (0.66-1.25) mg/dL Estimated GFR 47.0 ML/MIN Glucose 112 H (74-106) mg/dL Calcium 8.6 (8.4-10.2) mg/dL ABO Group Rh Factor Antibody Screen (NEGATIVE) - Procedures and Test Procedures and Tests throughout Hospitalization: Therapy Orders & Screens 04/24/20 19:50 Oxygen NASAL CANNULA 2 lpm Comment: O2 SAT 88% ON RM AIR Diagnosis: RIGHT LEG CELLULITIS,THROMBOPHLEBITIS 04/25/20 08:31 PT Eval & Treat (MD Order) ROUTINE Reason for Eval:: weakness, falls Diagnosis: RIGHT LEG CELLULITIS,THROMBOPHLEBITIS 04/25/20 12:08 PT Screen per Nursing Assess ONCE Comment: Protocol Order Physician Instructions: Greater than 3 points order PT Admission Screenin Reason For Exam: Triggered on Admission Diagnosis: RIGHT LEG CELLULITIS,THROMBOPHLEBITIS Open Wound/Cellutlitis/Pressure Ulcers: No Acute Fx/ORIF/Change in wt bearing status: Yes Severe MUSCULOSKELETAL pain: No ADL Dysfunction: Yes Acute CVA w/Hemiparesis/Hemiplegia: No Decreased Functional Mobility/Strength: Yes Sprain/Strain: No Acute Post-op Mobility Dysfunction: No Total Points: 9 Discharge Exam General Appearance: no apparent distress, alert Respiratory Exam: normal breath sounds, lungs clear, No respiratory distress Cardiovascular Exam: regular rate/rhythm, normal heart sounds Gastrointestinal/Abdomen Exam: soft, No tenderness, No mass Extremity Exam: swelling (right leg swelling, mild erythema) Wound Assessment: Skin/Wound Assessment Wound/Incision Assessment Start: 04/24/20 15:34 Text: Status: Active Freq: Q6H Protocol: Document 04/27/20 02:55 ST (Rec: 04/27/20 02:56 ST [id number]) Wound Photo Photo Taken No Final Diagnosis/Problem List - Final Discharge Diagnosis/Problem (1) DVT (deep venous thrombosis) Current Visit: Yes Status: Acute Assessment & Plan: on eliquis 2.5mg bid, discussed with Dr Grover pcp due to previous GI bleed, no bleeding on lovenox in hospital Code(s): I82.409 - ACUTE EMBOLISM AND THOMBOS UNSP DEEP VN UNSP LOWER EXTREMITY (2) Compression fx, lumbar spine Current Visit: Yes Status: Acute Assessment & Plan: pain control, home health/PT (3) Cellulitis of both lower extremities Current Visit: Yes Status: Acute Assessment & Plan: home on keflex, mostly right leg related to clot Code(s): L03.115 - CELLULITIS OF RIGHT LOWER LIMB; L03.116 - CELLULITIS OF LEFT LOWER LIMB - Discharge Disposition: Home, Self-Care Condition: Stable Prescriptions: New Docusate Sodium 100 mg [Colace 100 MG] 100 mg PO DAILY #30 capsule Apixaban [Eliquis 2.5 mg Tablet] 2.5 mg PO BID #60 tablet Cephalexin Mh 500 mg [Keflex 500 mg] 500 mg PO TID #30 capsule Oxycodone/APAP 5 mg/325 mg [Percocet Tablet 5/325Mg] 1 tab PO Q6H PRN PRN #28 tablet MDD 4 PRN Reason: Pain Continue Folic Acid 1 mg PO DAILY Simvastatin [Zocor] 40 mg PO HS Magnesium Oxide 400 mg [Mag-Ox 400] 400 mg PO BID Potassium Chloride 10 Meq Tab* [Klor Con 10 MEQ] 40 meq PO BID Bumetanide [Bumex] 2 mg PO BID Metoprolol Tartrate 25 mg [Lopressor 25MG Tab] 50 mg PO BID Methylprednisolone 4 mg [Medrol 4 mg] 8 mg PO DAILY Ergocalciferol (Vitamin D2) [Vitamin D2] 50,000 unit PO UD Cyanocobalamin (Vitamin B-12) [Vitamin B-12] 1,000 mcg IM UD Gabapentin 400 mg [Neurontin 400 MG] 400 mg PO HS #30 capsule Gabapentin [Neurontin] 100 mg PO DAILY Gabapentin 100 mg PO DAILY azaTHIOprine [Azathioprine] 75 mg PO DAILY Follow up with: SADIA GROVER MD [Primary Care Provider] - 1 Week
[2020-04-27] MEDS: BUMEX 1 MG PO SCH (09:19)
[2020-04-27] MEDS: Klor Con 10 MEQ PO SCH (09:19)
[2020-04-27] MEDS: Colace 100 MG PO SCH (09:19)
[2020-04-27] MEDS: MEDROL 4 MG PO SCH (09:20)
[2020-04-27] MEDS: Neurontin 100 MG PO SCH (09:20)
[2020-04-27] MEDS: Lopressor 50 MG PO SCH (09:20)
[2020-04-27] MEDS: PERCOCET TABLET 5/325MG PO PRN (09:20)
[2020-04-27] MEDS: MAG-OX 400 PO SCH (09:20)
[2020-04-27] MEDS: ROCEPHIN 1 Gm-D5w 50 ml Bag** 1 G/50 ML IVPB IV SCH (09:21)
[2020-04-27] MEDS: DULCOLAX 5 MG PO PRN (09:31)
[2020-04-27 11:36] VITALS: BP 143/64; PULSE 59
[2020-04-27] MEDS ORDERED: TROUGH DRUG LEVELS IJ ONE (17:30)
[2020-04-27 17:53] LABS: AB ID Interp Anti-FyA
[2020-04-27 19:04] LABS: Blood Bank Reference Report See Result Note:
[2020-04-27] MEDS ORDERED: ELIQUIS 2.5 MG TABLET PO SCH (22:00)
== END 2020-04-27 13:40 | disposition home or self-care (01) | DRG 300 ==
LOC: MED SURG 12:13 → OBSVTOIN 15:51 → MED SURG 15:51
PROVIDERS: ADMIT General Practice; ATTEND Family Medicine
DX: I82.441 Acute embolism and thrombosis of right tibial vein (principal); M48.56XA Collapsed vertebra, not elsewhere classified, lumbar region, initial encounter for fracture; L03.116 Cellulitis of left lower limb; L03.115 Cellulitis of right lower limb; I12.9 Hypertensive chronic kidney disease with stage 1 through stage 4 chronic kidney disease, or unspecified chronic kidney disease; J44.9 Chronic obstructive pulmonary disease, unspecified; M54.5 Low back pain; Z79.01 Long term (current) use of anticoagulants; Z79.899 Other long term (current) drug therapy
CPT/HCPCS: 36415; 71046; 72100; 80048; 80053; 81001; 85025; 85027; 86850; 86870; 86900; 86901; 93971; 94760; 94762; J0696; J1650; A9270-GY; J3370

== ENCOUNTER 2020-06-12 09:13 | Emergency (ER) | payer MEDICARE ==
[2020-06-12] MEDS ORDERED: LOPRESSOR 5 MG/5 ML INJECTION IV ONE ×4 (09:30→10:30)
[2020-06-12] MEDS ORDERED: Sodium Chloride 0.9% 1000 ML 1,000 ML IV SCH (09:30)
[2020-06-12] MEDS ORDERED: Sodium Chloride 0.9% 1000 ML 1,000 ML ONE (09:49)
--- NOTE | 2020-06-12 09:59 | XRAY ---
Indication: Status post fall. Currently on blood thinner therapy. Multiple contiguous axial images obtained through the head without contrast. Comparison: November 13, 2019. Again there is age-appropriate global atrophy and mild periventricular degenerative micro-ischemia bilaterally. Again no acute intracranial hemorrhage, abnormal extra-axial fluid collection, or mass effect. Fourth ventricle remains midline without hydrocephalus. Bony calvarium intact. Visualized paranasal sinuses and mastoid air cells are clear. Impression: Continued nonacute senile brain.
[2020-06-12] MEDS ORDERED: PERCOCET TABLET 5/325MG PO ONE (10:00)
[2020-06-12] MEDS ORDERED: PERCOCET TABLET 5/325MG ONE (10:03)
--- NOTE | 2020-06-12 10:03 | XRAY ---
Indication: Status post fall. Multiple contiguous axial images obtained through the cervical spine. Sagittal and coronal reformatted images obtained. Comparison: None Axial images negative for acute fracture, suspicious bony lesions, or spinal canal stenosis. Mild C5-C7 degenerative endplate spurring and mild/moderate multilevel bilateral degenerative facet hypertrophy. Sagittal and coronal reformatted images demonstrates normal cervical lordosis with C5-C7 disc space loss.. C4 segment demonstrates 2 mm degenerative anterolisthesis. No acute compression fracture or jumped facet. Normal appearing craniocervical junction. Visualized noncontrasted soft tissues demonstrates moderate carotid calcifications bilaterally. Lung apices demonstrates pulmonary emphysema pleural parenchymal fibrosis/scarring. Impression: 1. Negative for acute fracture. 2. Multilevel degenerative spondylosis including minimal grade 1 C4 spondylolisthesis. 3. Incidental bilateral carotid calcifications, pulmonary emphysema, and biapical pleural parenchymal fibrosis/scarring.
--- NOTE | 2020-06-12 10:09 | XRAY ---
Indication: Status post fall. Left lung cancer. Comparison: April 24, 2020. Portable chest less inflated again with pulmonary emphysema, left hemithorax calcified pleural plaquing, and right lung calcified granulomas. Heart is not enlarged for AP portable technique. Bony thorax intact again with osteopenia, degenerative changes, and T8/T9 kyphoplasty. Impression: Continued nonacute chest with chronic features.
[2020-06-12 10:26] LABS: Absolute Neutrophil Ct (ANC) 9.02 (1.4-6.9); BASOPHIL % 0.8 % (0.0-0.4); Basophil (Absolute #) 0.08 (0-0.4); Eosinophil % 0.4 % (0.00-5.0); Eosinophil (Absolute #) 0.04 (0-0.5); Hematocrit 28.7 % (42-50); Lymphocyte (Absolute #) 0.57 (1.0-4.6); Lymphocytes % 5.5 % (24.0-44.0); Mean Cell Volume 111.7 fl (78-100); Mean Corpuscular Hgb Concent. 31.4 g/dl (32-36); Mean Platelet Volume 8.6 fl (7.5-11.0); Monocyte (Absolute #) 0.73 (0.0-1.3); Neutrophil % 86.3 % (36.0-66.0); Platelet Count 205 K/mm3 (150-450); Red Blood Count 2.57 M/mm3 (4.1-5.6); Red Cell Distribution Width 15.2 % (11.5-14.0); White Blood Count 10.4 K/mm3 (4.0-10.5)
[2020-06-12 10:27] LABS: Appearance CLEAR (CLEAR); Bilirubin NEGATIVE (NEGATIVE); Blood NEGATIVE Ery/ul (0-5); Glucose NEGATIVE (NEGATIVE); Ketones NEGATIVE (NEGATIVE); Leukocyte Esterase NEGATIVE (NEGATIVE); Mucus SLIGHT /HPF (NEGATIVE); Nitrite NEGATIVE (NEGATIVE); Protein,Urine Dip NEGATIVE (Negative); Specific Gravity 1.006 (1.005-1.025); Urobilinogen NEGATIVE mg/dL (0-1)
[2020-06-12 10:33] LABS: INR 1.26 (0.8-3.0); PROTIME 14.3 SECONDS (8.83-12.87)
[2020-06-12 10:36] LABS: PTT 28.5 SECONDS (24.1-36.1)
[2020-06-12] MEDS ORDERED: CARDIZEM DRIP 100 MG/100 ML D5W 100 ML IV PRN (10:39)
[2020-06-12] MEDS ORDERED: Cardizem IV 50 MG/10 ML IV ONE ×2 (10:39→10:43)
[2020-06-12] MEDS ORDERED: CARDIZEM DRIP 100 MG/100 ML D5W 100 ML IV ONE (10:43)
[2020-06-12 10:46] LABS: ALBUMIN 3.4 g/dL (3.5-5.0); ANION GAP 9.2 MEQ/L (5-15); BILIRUBIN,TOTAL 0.4 mg/dL (0.2-1.3); Calcium 8.5 mg/dL (8.4-10.2); Creatinine 1 2.05 mg/dL (0.66-1.25); EST GLOMERULAR FILTRATION RATE 33.5 ML/MIN; Potassium 3.3 mmol/L (3.5-5.1); Total Protein 6.5 g/dL (6.3-8.2)
[2020-06-12 11:07] LABS: Slide Review 1 YES
--- NOTE | 2020-06-12 11:33 | ERPHSYRPT ---
- History of Present Illness Time Seen by Provider: 06/12/20 09:25 Source: patient Exam Limitations: no limitations Patient Subjective Stated Complaint: pt brouoght in by ambulance, he states he fell today getting up to bathroom, states lost balance, he had a recent fall and has 2 fractures in back, pt co back,neck pain that he states is chronic for him Triage Nursing Assessment: pt alert, with c collar in place, monitor showed afib with rate 110-130, they have recently changed hes meds, pt on 2lnc as per home, abd large and distended, lower legs with swelling that is normal for him Physician History: Is a 79-year-old male who with a long history of atrial fibrillation recently had a change in some of his cardiac medicines including a 50% decrease in his metoprolol he was found down this morning had last seen normal her last known to be normal at 530 was found at 7:30 AM in the floor no loss of consciousness as he simply got up and and fell he is not sure why he complains of some neck pain but again no loss of consciousness he is on Eliquis not just for his atrial for but he was recently found to have extensive DVT in his right lower extremity. At any rate EMS found his heart rate to be as 153. He denies any chest pain again he denies any loss of consciousness from the fall. To be noted he also re cently was found to have 2 endplate compression fractures of L2 and 5 he does have a history of lung cancer as well as COPD chronic kidney disease and CHF. He is on 4 L of O2 my understanding is that he is normally on 2 L at home. Timing/Duration: today Activities at Onset: other (Ending to go to the bathroom) Quality: aching Chest Pain Radiation: neck Severity of Pain-Max: moderate Severity of Pain-Current: moderate Modifying Factors: Improves With: nothing Nitro Today/Relief: no nitro taken today Aspirin Treatment Today: no aspirin today Associated Symptoms: shortness of breath, weakness Allergies/Adverse Reactions: No Known Drug Allergies Allergy (Verified 06/12/20 09:15) Home Medications: Folic Acid 1 mg PO DAILY 01/28/15 [History] Simvastatin [Zocor] 40 mg PO HS 01/28/15 [History] Magnesium Oxide 400 mg [Mag-Ox 400] 400 mg PO BID 04/03/15 [History] Potassium Chloride 10 Meq Tab* [Klor Con 10 MEQ] 40 meq PO BID 05/08/15 [History] Bumetanide [Bumex] 2 mg PO BID 10/29/16 [History] Metoprolol Tartrate 25 mg [Lopressor 25MG Tab] 50 mg PO DAILY 02/03/17 [History] Methylprednisolone 4 mg [Medrol 4 mg] 8 mg PO DAILY 11/10/18 [History] Gabapentin 100 mg PO DAILY 04/24/20 [History] Gabapentin [Neurontin] 100 mg PO DAILY 04/24/20 [History] azaTHIOprine [Azathioprine] 75 mg PO DAILY 04/24/20 [History] Hx Tetanus, Diphtheria Vaccination/Date Given: Yes Hx Influenza Vaccination/Date Given: No Hx Pneumococcal Vaccination/Date Given: Yes Immunizations Up to Date: Yes Travel Risk - International Travel Have you traveled outside of the country in past 3 weeks: No - Coronavirus Screening Are you exhibiting any of the following symptoms?: No Close contact with a COVID-19 positive Pt in past 14-21 Days: No - Review of Systems Constitutional: Weakness, No Fever, No Chills Eyes: No Symptoms Ears, Nose, & Throat: No Symptoms Respiratory: No Cough, No Dyspnea Cardiac: No Chest Pain, No Edema, No Syncope Abdominal/Gastrointestinal: No Abdominal Pain, No Nausea, No Vomiting, No Diarrhea Genitourinary Symptoms: No Dysuria Musculoskeletal: No Back Pain, No Neck Pain Skin: No Rash Neurological: No Dizziness, No Focal Weakness, No Sensory Changes Psychological: No Symptoms Endocrine: No Symptoms All Other Systems: Reviewed and Negative - Past Medical History Pertinent Past Medical History: Yes Neurological History: TIA ENT History: Cataracts Cardiac History: Congestive Heart Failure, Coronary Artery Disease, High Cholesterol, Hypertension, Myocardial Infarction ([place]) Respiratory History: CHF, COPD, Lung Cancer, Pneumonia Endocrine Medical History: No Pertinent History Musculoskeletal History: No Pertinent History GI Medical History: GI Bleed, Other History: Other Psycho-Social History: No Pertinent History Male Reproductive Disorders: No Pertinent History Other Medical History: some kidney failure, anemia with blood transfusion, Lung cancer left upper lobe - Past Surgical History Past Surgical History: Yes Neuro Surgical History: No Pertinent History Cardiac: Cardiac Catheterization, Cardiac Stent Respiratory: No Pertinent History Gastrointestinal: Appendectomy, Hernia Repair Genitourinary: No Pertinent History Musculoskeletal: Orthopedic Surgery Male Surgical History: No Pertinent History Other Surgical History: EGD AND COLONOSCOPY LAST DONE APRIL 2016 Received many blood transfusions during that time. kyphoplasty t8-t9, cardiac stent x 2 - Social History Smoking Status: Former smoker How long have you smoked: 50 yrs Exposure to second hand smoke: No Drug Use: none Patient Lives Alone: No - Nursing Vital Signs Nursing Vital Signs: Initial Vital Signs Temperature 98.2 F 06/12/20 09:20 Pulse Rate 128 H 06/12/20 09:20 Respiratory Rate 20 06/12/20 09:20 Blood Pressure 121/87 06/12/20 09:20 O2 Sat by Pulse Oximetry 97 06/12/20 09:20 Pain Scale Pain Intensity 0 - Physical Exam General Appearance: mild distress, alert Eye Exam: PERRL/EOMI, eyes nml inspection Ears, Nose, Throat Exam: normal ENT inspection, moist mucous membranes Neck Exam: normal inspection, supple, limited range of motion, midline tenderness Respiratory Exam: normal breath sounds, lungs clear, No respiratory distress Cardiovascular Exam: tachycardia, irregular, No edema Gastrointestinal/Abdomen Exam: soft, No tenderness, No mass Back Exam: normal inspection, No CVA tenderness, No vertebral tenderness Extremity Exam: normal range of motion, pedal edema (4+ on the left 2+ on the right) Neurologic Exam: alert, oriented x 3, cooperative, normal mood/affect, nml cerebellar function, sensation nml, No motor deficits Skin Exam: normal color, warm, dry Lymphatic Exam: No adenopathy SpO2 Interpretation: normal SpO2: 98 O2 Delivery: Room Air - Course Nursing assessment & vital signs reviewed: Yes EKG Interpreted by Me: RATE ([id number]), A-fib, Non-specific ST Changes - CT Exams Head CT Interpretation: Other (CT of the head and neck showed nonacute findings) Ordered Tests: Active Orders 24 hr Category Date Time Status EKG-ER Only STAT Care 06/12/20 09:30 Active IV Insertion STAT Care 06/12/20 09:30 Active CERVICAL SPINE WO CONTRAST [CT] Stat Exams 06/12/20 09:29 Completed CHEST 1 VIEW (PORTABLE) Stat Exams 06/12/20 09:31 Completed HEAD WITHOUT CONTRAST [CT] Stat Exams 06/12/20 09:29 Completed AMYLASE Stat Lab 06/12/20 10:15 Completed CBC W DIFF Stat Lab 06/12/20 10:15 Completed CMP Stat Lab 06/12/20 10:15 Completed D-DIMER QUANTITATIVE Stat Lab 06/12/20 10:15 Completed LIPASE Stat Lab 06/12/20 10:15 Completed Lactic Acid Stat Lab 06/12/20 09:30 Completed MAGNESIUM Stat Lab 06/12/20 10:15 Completed NT PRO BNP Stat Lab 06/12/20 10:15 Completed PROTIME WITH INR Stat Lab 06/12/20 10:15 Completed PTT Stat Lab 06/12/20 10:15 Completed TROPONIN Q3H Lab 06/12/20 10:15 Completed TROPONIN Q3H Lab 06/12/20 12:30 Ordered TROPONIN Q3H Lab 06/12/20 15:30 Ordered TROPONIN Q3H Lab 06/12/20 18:30 Ordered TROPONIN Q3H Lab 06/12/20 21:30 Ordered UA W/RFX UR CULTURE Stat Lab 06/12/20 10:10 Completed Medication Summary Generic Name Dose Route Start Last Admin Trade Name Freq PRN Reason Stop Dose Admin Sodium Chloride 1,000 mls @ 50 mls/hr 06/12/20 09:30 06/12/20 10:04 Sodium Chloride 0.9% 1000 Ml IV 07/12/20 09:29 50 mls/hr .Q20H SIMBA Administration Diltiazem HCl 100 mls @ 5 mls/hr 06/12/20 10:39 06/12/20 10:46 Cardizem Drip 100 Mg/100 Ml D5w IV 07/12/20 10:38 5 mg/hr .Q20H PRN 5 mls/hr HEART RATE/ A-FIB Administration Protocol 5 MG/HR Discontinued Medications Generic Name Dose Route Start Last Admin Trade Name Freq PRN Reason Stop Dose Admin Diltiazem HCl 5 mg 06/12/20 10:39 06/12/20 10:45 Cardizem Iv 50 Mg/10 Ml IV 06/12/20 10:40 5 mg STAT ONE Administration Diltiazem HCl Confirm 06/12/20 10:43 Cardizem Iv 50 Mg/10 Ml Administered 06/12/20 10:44 Dose 50 mg IV .STK-MED ONE Metoprolol Tartrate 5 mg 06/12/20 09:30 06/12/20 10:04 Lopressor 5 Mg/5 Ml Injection IV 06/12/20 09:31 5 mg STAT ONE Administration Metoprolol Tartrate Confirm 06/12/20 09:49 Lopressor 5 Mg/5 Ml Injection Administered 06/12/20 09:50 Dose 5 mg IV .STK-MED ONE Metoprolol Tartrate 5 mg 06/12/20 10:07 06/12/20 10:31 Lopressor 5 Mg/5 Ml Injection IV 06/12/20 10:08 5 mg STAT ONE Administration Metoprolol Tartrate Confirm 06/12/20 10:30 Lopressor 5 Mg/5 Ml Injection Administered 06/12/20 10:31 Dose 5 mg IV .STK-MED ONE Oxycodone/Acetaminophen 1 tab 06/12/20 10:00 06/12/20 10:04 Percocet Tablet 5/325mg PO 06/12/20 10:01 1 tab STAT ONE Administration Oxycodone/Acetaminophen Confirm 06/12/20 10:03 Percocet Tablet 5/325mg Administered 06/12/20 10:04 Dose 1 tab .ROUTE .STK-MED ONE Lab/Rad Data: Laboratory Result Diagrams 06/12/20 10:15 06/12/20 10:15 Laboratory Results 06/12/20 06/12/20 06/12/20 Range/Units 10:15 10:15 10:15 WBC (4.0-10.5) K/mm3 RBC (4.1-5.6) M/mm3 Hgb (12.5-18.0) gm/dl Hct (42-50) % MCV (78-100) fl MCH (26-32) pg MCHC (32-36) g/dl RDW (11.5-14.0) % Plt Count (150-450) K/mm3 MPV (7.5-11.0) fl Gran % (36.0-66.0) % Eos # (Auto) (0-0.5) Absolute Lymphs (auto) (1.0-4.6) Absolute Monos (auto) (0.0-1.3) Lymphocytes % (24.0-44.0) % Monocytes % (0.0-12.0) % Eosinophils % (0.00-5.0) % Basophils % (0.0-0.4) % Absolute Granulocytes (1.4-6.9) Basophils # (0-0.4) PT 14.3 H (8.83-12.87) SECONDS INR 1.26 (0.8-3.0) APTT 28.5 (24.1-36.1) SECONDS D-Dimer 2065 H* (215-500) ng/mL Sodium 137 (137-145) mmol/L Potassium 3.3 L (3.5-5.1) mmol/L Chloride 93 L (98-107) mmol/L Carbon Dioxide 37 H (22-30) mmol/L Anion Gap 9.2 (5-15) MEQ/L BUN 44 H (9-20) mg/dL Creatinine 2.05 H (0.66-1.25) mg/dL Estimated GFR 33.5 ML/MIN Glucose 134 H (74-106) mg/dL Lactic Acid (0.4-2.0) Calcium 8.5 (8.4-10.2) mg/dL Magnesium 2.0 (1.6-2.3) mg/dL Total Bilirubin 0.40 (0.2-1.3) mg/dL AST 22 (17-59) U/L ALT 13 (0-50) U/L Alkaline Phosphatase 84 (38-126) U/L Troponin I 0.352 H* (0.000-0.034) ng/mL NT-Pro-B Natriuret Pep 1720 (0-1800) pg/mL Serum Total Protein 6.5 (6.3-8.2) g/dL Albumin 3.4 L (3.5-5.0) g/dL Amylase 54 (30-110) U/L Lipase 35 (23-300) U/L Urine Color (YELLOW) Urine Appearance (CLEAR) Urine pH (5-6) Ur Specific [place] (1.005-1.025) Urine Protein (Negative) Urine Ketones (NEGATIVE) Urine Blood (0-5) Marcelino/ul Urine Nitrite (NEGATIVE) Urine Bilirubin (NEGATIVE) Urine Urobilinogen (0-1) mg/dL Ur Leukocyte Esterase (NEGATIVE) Urine WBC (Auto) (0-5) /HPF Urine RBC (Auto) (0-2) /HPF U Epithel Cells (Auto) (FEW) /HPF Urine Bacteria (Auto) (NEGATIVE) /HPF Urine Mucus (Auto) (NEGATIVE) /HPF Urine Culture Reflexed (NO) Urine Glucose (NEGATIVE) mg/dL Slides for Path Review 06/12/20 06/12/20 06/12/20 Range/Units 10:15 10:10 09:30 WBC 10.4 (4.0-10.5) K/mm3 RBC 2.57 L (4.1-5.6) M/mm3 Hgb 9.0 L (12.5-18.0) gm/dl Hct 28.7 L (42-50) % MCV 111.7 H (78-100) fl MCH 35.0 H (26-32) pg MCHC 31.4 L (32-36) g/dl RDW 15.2 H (11.5-14.0) % Plt Count 205 (150-450) K/mm3 MPV 8.6 (7.5-11.0) fl Gran % 86.3 H (36.0-66.0) % Eos # (Auto) 0.04 (0-0.5) Absolute Lymphs (auto) 0.57 L (1.0-4.6) Absolute Monos (auto) 0.73 (0.0-1.3) Lymphocytes % 5.5 L (24.0-44.0) % Monocytes % 7.0 (0.0-12.0) % Eosinophils % 0.4 (0.00-5.0) % Basophils % 0.8 (0.0-0.4) % Absolute Granulocytes 9.02 H (1.4-6.9) Basophils # 0.08 (0-0.4) PT (8.83-12.87) SECONDS INR (0.8-3.0) APTT (24.1-36.1) SECONDS D-Dimer (215-500) ng/mL Sodium (137-145) mmol/L Potassium (3.5-5.1) mmol/L Chloride (98-107) mmol/L Carbon Dioxide (22-30) mmol/L Anion Gap (5-15) MEQ/L BUN (9-20) mg/dL Creatinine (0.66-1.25) mg/dL Estimated GFR ML/MIN Glucose (74-106) mg/dL Lactic Acid 1.9 (0.4-2.0) Calcium (8.4-10.2) mg/dL Magnesium (1.6-2.3) mg/dL Total Bilirubin (0.2-1.3) mg/dL AST (17-59) U/L ALT (0-50) U/L Alkaline Phosphatase (38-126) U/L Troponin I (0.000-0.034) ng/mL NT-Pro-B Natriuret Pep (0-1800) pg/mL Serum Total Protein (6.3-8.2) g/dL Albumin (3.5-5.0) g/dL Amylase (30-110) U/L Lipase (23-300) U/L Urine Color STRAW (YELLOW) Urine Appearance CLEAR (CLEAR) Urine pH 7.0 (5-6) Ur Specific [place] 1.006 (1.005-1.025) Urine Protein NEGATIVE (Negative) Urine Ketones NEGATIVE (NEGATIVE) Urine Blood NEGATIVE (0-5) Marcelino/ul Urine Nitrite NEGATIVE (NEGATIVE) Urine Bilirubin NEGATIVE (NEGATIVE) Urine Urobilinogen NEGATIVE (0-1) mg/dL Ur Leukocyte Esterase NEGATIVE (NEGATIVE) Urine WBC (Auto) NONE (0-5) /HPF Urine RBC (Auto) NONE (0-2) /HPF U Epithel Cells (Auto) NONE (FEW) /HPF Urine Bacteria (Auto) NONE (NEGATIVE) /HPF Urine Mucus (Auto) SLIGHT (NEGATIVE) /HPF Urine Culture Reflexed NO (NO) Urine Glucose NEGATIVE (NEGATIVE) mg/dL Slides for Path Review YES - Progress Progress: improved Air Movement: fair Progress Note: 06/12/20 11:36 Patient is being transferred to [facility] to Dr. Mcmillan because we do not have any ICU beds. This patient is being maintained on a diltiazem drip he is responding to that although we are progressing slowly because of borderline blood pressures. Blood Culture(s) Obtained: No Antibiotics given: No - Departure Departure Disposition: Transfer Clinical Impression: Atrial fibrillation with rapid ventricular response, CHF (congestive heart failure), NYHA class III, Chronic renal disease, stage 4, severely decreased glomerular filtration rate (GFR) between 15-29 mL/min/1.73 square meter, Squamous cell lung cancer, Elevated troponin, DVT (deep venous thrombosis), COPD (chronic obstructive pulmonary disease), Hypertension Condition: Serious Critical Care Time: Yes Critical Care Time(excluding separately billable procedures): Critical 30-74 mins Referrals: SADIA GROVER MD [Primary Care Provider] - Instructions: Heart Failure, Chronic Obstructive Pulmonary Disease
[2020-06-12 11:48] VITALS: BP 88/72; PULSE 104; O2SAT 99
== END 2020-06-12 12:07 | disposition short-term general hospital (02) ==
LOC: ED 09:13
DX: I48.91 Unspecified atrial fibrillation (principal); W18.30XA Fall on same level, unspecified, initial encounter; Y93.9 Activity, unspecified; Y92.9 Unspecified place or not applicable; M54.2 Cervicalgia; R42 Dizziness and giddiness; Z85.118 Personal history of other malignant neoplasm of bronchus and lung; Z86.718 Personal history of other venous thrombosis and embolism; J44.9 Chronic obstructive pulmonary disease, unspecified; N18.9 Chronic kidney disease, unspecified; I50.9 Heart failure, unspecified; I25.10 Atherosclerotic heart disease of native coronary artery without angina pectoris; I12.9 Hypertensive chronic kidney disease with stage 1 through stage 4 chronic kidney disease, or unspecified chronic kidney disease; I25.2 Old myocardial infarction
CPT/HCPCS: 36415; 70450; 71045; 72125; 80053; 81001; 82150; 83605; 83690; 83735; 83880; 84484; 85025; 85379; 85610; 85730; 93005; 96365; 96374; 96375; 96376; 99285; 99291; A9270-GY

== ENCOUNTER 2020-06-28 10:49 | Inpatient (IN) | payer MEDICARE ==
[2020-06-28] MEDS ORDERED: Lasix 40 MG/4 ML IV ONE (10:59)
[2020-06-28] MEDS ORDERED: Lasix 40 MG/4 ML ONE (11:18)
[2020-06-28] MEDS: Sodium Chloride 0.9% 1000 ML 1,000 ML IV SCH (11:19)
[2020-06-28 11:23] LABS: Hematocrit 18.7 % (42-50); Mean Corpuscular Hemoglobin 32.9 pg (26-32); Mean Corpuscular Hgb Concent. 28.9 g/dl (32-36); Mean Platelet Volume 9.3 fl (7.5-11.0); Platelet Count 262 K/mm3 (150-450); Red Cell Distribution Width 15.6 % (11.5-14.0); White Blood Count 11.6 K/mm3 (4.0-10.5)
[2020-06-28 11:33] LABS: INR 1.25 (0.8-3.0); PROTIME 14.2 SECONDS (8.83-12.87); PTT 26.3 SECONDS (24.1-36.1)
[2020-06-28 11:38] LABS: Red Blood Count 1.64 M/mm3 (4.1-5.6)
[2020-06-28 11:39] LABS: Hemoglobin 5.4 gm/dl (12.5-18.0)
[2020-06-28 11:39] LABS: Appearance CLEAR (CLEAR); Bilirubin NEGATIVE (NEGATIVE); Blood NEGATIVE Ery/ul (0-5); Glucose NEGATIVE (NEGATIVE); Ketones NEGATIVE (NEGATIVE); Leukocyte Esterase NEGATIVE (NEGATIVE); Mucus SLIGHT /HPF (NEGATIVE); Nitrite NEGATIVE (NEGATIVE); Protein,Urine Dip NEGATIVE (Negative); Specific Gravity 1.006 (1.005-1.025); Urobilinogen NEGATIVE mg/dL (0-1)
--- NOTE | 2020-06-28 11:45 | XRAY ---
Indication: Suspected Covid 19. Comparison: June 12, 2020. Portable chest again demonstrates pulmonary emphysema, left hemithorax calcified pleural plaquing, and tiny right lung calcified granulomas. No focal infiltrate, consolidation, or large effusion. Heart is not enlarged. Bony thorax intact again with osteopenia, degenerative changes, and T8/T9 kyphoplasty. New L1 kyphoplasty. Impression: Continued nonacute chest with chronic features.
[2020-06-28 11:48] LABS: INFLUENZA A NEGATIVE (NEGATIVE); INFLUENZA B NEGATIVE (NEGATIVE); RESPIRATORY SYNCTIAL VIRUS NEGATIVE (Negative)
[2020-06-28 11:53] LABS: Basophil 2 % (0.0-1.0); Eosinophil 1 % (0.00-3.0); Hypochromia 3+; Lymphocytes 6 % (24-44); Neutrophils 91 % (36.-66.); Platelet Estimate NORMAL (NORMAL); Total Cells Counted 100
[2020-06-28 12:05] LABS: ALBUMIN 3.5 g/dL (3.5-5.0); ANION GAP 11.7 MEQ/L (5-15); BILIRUBIN,TOTAL 0.5 mg/dL (0.2-1.3); Calcium 8.6 mg/dL (8.4-10.2); Creatinine 1 1.75 mg/dL (0.66-1.25); EST GLOMERULAR FILTRATION RATE 40.3 ML/MIN; MAGNESIUM 2.2 mg/dL (1.6-2.3); Potassium 4.5 mmol/L (3.5-5.1); Total Protein 6.5 g/dL (6.3-8.2)
--- NOTE | 2020-06-28 12:41 | ERPHSYRPT ---
- History of Present Illness Time Seen by Provider: 06/28/20 11:00 Source: patient, family Exam Limitations: no limitations Patient Subjective Stated Complaint: SOB Triage Nursing Assessment: Patient brought back to ED via w/c and transferred to bed with assist of 1. Patient A+O X 3. Patient's skin pink, warm and dry. Patient complains of increased SOB over the past few days. Patient states friday he started running a low grade temp of 99.0. Patient is on home oxygen at 2 liters via n/c that has been increased to 5 liters over the past few days. Lungs noted to be diminished on left side and rhales in [place]. Patient complains of intermittent non productive cough. Patient has 2+ pitting edema to BLE. Patient also has had a 5 pound weight gain in the past day. Physician History: Patient is a 75-year-old white male presents with a history of CHF with increasing shortness of breath and increased O2 requirement at home normally he is on 2 L of oxygen and is on 4-5 here he has had a 5 pound weight gain over the last few days his fever has been low-grade and he has increased peripheral edema. Dr. Gore with did recommend had COVID testing for him on his arrival which we were happy to do. Timing/Duration: day(s) (4) Activities at Onset: none Severity of Dyspnea-Max: moderate Severity of Dyspnea-Current: mild Possible Cause: frequent episodes Modifying Factors: Improves With: nothing Associated Symptoms: edema, weakness, ankle swelling, leg swelling Allergies/Adverse Reactions: No Known Drug Allergies Allergy (Verified 06/28/20 10:51) Home Medications: Folic Acid 1 mg PO DAILY 01/28/15 [History] Simvastatin [Zocor] 40 mg PO HS 01/28/15 [History] Magnesium Oxide 400 mg [Mag-Ox 400] 400 mg PO BID 04/03/15 [History] Potassium Chloride 10 Meq Tab* [Klor Con 10 MEQ] 40 meq PO BID 05/08/15 [History] Bumetanide [Bumex] 2 mg PO BID 10/29/16 [History] Metoprolol Tartrate 25 mg [Lopressor 25MG Tab] 50 mg PO DAILY 02/03/17 [History] Methylprednisolone 4 mg [Medrol 4 mg] 8 mg PO DAILY 11/10/18 [History] Gabapentin 100 mg PO DAILY 04/24/20 [History] Gabapentin [Neurontin] 100 mg PO DAILY 04/24/20 [History] azaTHIOprine [Azathioprine] 75 mg PO DAILY 04/24/20 [History] Hx Tetanus, Diphtheria Vaccination/Date Given: Yes Hx Influenza Vaccination/Date Given: No Hx Pneumococcal Vaccination/Date Given: Yes Immunizations Up to Date: Yes Travel Risk - International Travel Have you traveled outside of the country in past 3 weeks: No - Coronavirus Screening Are you exhibiting any of the following symptoms?: Yes Symptoms: Fever, Cough: New Onset, Shortness of Breath Close contact with a COVID-19 positive Pt in past 14-21 Days: No - Review of Systems Constitutional: No Fever, No Chills Eyes: No Symptoms Ears, Nose, & Throat: No Symptoms Respiratory: Cough, Dyspnea Cardiac: Chest Pain, Edema, No Syncope Abdominal/Gastrointestinal: No Abdominal Pain, No Nausea, No Vomiting, No Diarrhea Genitourinary Symptoms: No Dysuria Musculoskeletal: Joint Swelling, No Back Pain, No Neck Pain Skin: No Rash Neurological: No Dizziness, No Focal Weakness, No Sensory Changes Psychological: No Symptoms Endocrine: No Symptoms All Other Systems: Reviewed and Negative - Past Medical History Pertinent Past Medical History: Yes Neurological History: TIA ENT History: Cataracts Cardiac History: Congestive Heart Failure, Coronary Artery Disease, High Ch olesterol, Hypertension, Myocardial Infarction ([place]) Respiratory History: CHF, COPD, Lung Cancer, Pneumonia Endocrine Medical History: No Pertinent History Musculoskeletal History: No Pertinent History GI Medical History: GI Bleed, Other History: Other Psycho-Social History: No Pertinent History Male Reproductive Disorders: No Pertinent History Other Medical History: some kidney failure, anemia with blood transfusion, Lung cancer left upper lobe - Past Surgical History Past Surgical History: Yes Neuro Surgical History: No Pertinent History Cardiac: Cardiac Catheterization, Cardiac Stent Respiratory: No Pertinent History Gastrointestinal: Appendectomy, Hernia Repair Genitourinary: No Pertinent History Musculoskeletal: Orthopedic Surgery Male Surgical History: No Pertinent History Other Surgical History: EGD AND COLONOSCOPY LAST DONE APRIL 2016 Received many blood transfusions during that time. kyphoplasty t8-t9, cardiac stent x 2 - Social History Smoking Status: Former smoker How long have you smoked: 50 yrs Exposure to second hand smoke: No Drug Use: none Patient Lives Alone: No - Nursing Vital Signs Nursing Vital Signs: Initial Vital Signs Temperature 98.0 F 06/28/20 10:51 Pulse Rate 86 06/28/20 10:51 Respiratory Rate 20 06/28/20 10:51 Blood Pressure 131/72 06/28/20 10:51 O2 Sat by Pulse Oximetry 100 06/28/20 10:51 Pain Scale Pain Intensity 0 - Physical Exam General Appearance: moderate distress, alert Eye Exam: PERRL/EOMI Neck Exam: normal inspection, supple Respiratory Exam: respiratory distress (Old), diminished breath sounds, crackles/rales Cardiovascular/Chest Exam: normal heart sounds, regular rate/rhythm Abdominal/Gastrointestinal Exam: soft, No tenderness, No distention, No mass Extremity Exam: non-tender, normal range of motion, normal inspection, no calf tenderness, no pedal edema Neurologic Exam: alert, oriented x 3, cooperative, cath lab technologist II-XII nml as tested, sensation nml, No motor deficits Skin Exam: normal color, warm, No dry SpO2 Interpretation: normal SpO2: 100 O2 Delivery: Nasal Cannula - Course Nursing assessment & vital signs reviewed: Yes EKG Interpreted by Me: RATE (83), Sinus Rhythm, NORMAL AXIS, NORMAL INTERVALS, Non-specific ST Changes, Other (R wave progression) - Radiology Exams Chest X-ray Interpretation: Reviewed by me, Other (sTable chest with chronic changes) Ordered Tests: Active Orders 24 hr Category Date Time Status Truck Crane Operator STAT Care 06/28/20 11:00 Active EKG-ER Only STAT Care 06/28/20 10:59 Active Nuno [Catheter-[place] Nuno] STAT Care 06/28/20 11:32 Active IV Insertion STAT Care 06/28/20 10:59 Active Oxygen-ED Only Nasal Cannula 5 lpm Care 06/28/20 10:59 Active CHEST 1 VIEW (PORTABLE) Stat Exams 06/28/20 11:00 Completed BLOOD CULTURE Stat Lab 06/28/20 11:15 Received CBC W DIFF Stat Lab 06/28/20 11:15 Completed CMP Stat Lab 06/28/20 11:15 Completed D-DIMER QUANTITATIVE Stat Lab 06/28/20 11:15 Completed Lactic Acid Stat Lab 06/28/20 10:59 Completed MAGNESIUM Stat Lab 06/28/20 11:15 Completed Manual Differential NC Stat Lab 06/28/20 11:15 Completed NT PRO BNP Stat Lab 06/28/20 11:15 Completed PROTIME WITH INR Stat Lab 06/28/20 11:15 Completed PTT Stat Lab 06/28/20 11:15 Completed TROPONIN Q3H Lab 06/28/20 11:15 Completed TROPONIN Q3H Lab 06/28/20 14:00 Ordered TROPONIN Q3H Lab 06/28/20 17:00 Ordered TROPONIN Q3H Lab 06/28/20 20:00 Ordered TROPONIN Q3H Lab 06/28/20 23:00 Ordered UA W/RFX UR CULTURE Stat Lab 06/28/20 11:28 Completed Medication Summary Generic Name Dose Route Start Last Admin Trade Name Freq PRN Reason Stop Dose Admin Sodium Chloride 1,000 mls @ 50 mls/hr 06/28/20 11:00 06/28/20 11:19 Sodium Chloride 0.9% 1000 Ml IV 07/28/20 10:59 50 mls/hr .Q20H SIMBA Administration Discontinued Medications Generic Name Dose Route Start Last Admin Trade Name Freq PRN Reason Stop Dose Admin Furosemide 40 mg 06/28/20 10:59 06/28/20 11:19 Lasix 40 Mg/4 Ml IV 06/28/20 11:00 40 mg STAT ONE Administration Furosemide Confirm 06/28/20 11:18 Lasix 40 Mg/4 Ml Administered 06/28/20 11:19 Dose 40 mg .ROUTE .[facility] Lab/Rad Data: Laboratory Result Diagrams 06/28/20 11:15 06/28/20 11:15 Laboratory Results 06/28/20 06/28/20 06/28/20 Range/Units 12:15 11:29 11:28 WBC (4.0-10.5) K/mm3 RBC (4.1-5.6) M/mm3 Hgb (12.5-18.0) gm/dl Hct (42-50) % MCV (78-100) fl MCH (26-32) pg MCHC (32-36) g/dl RDW (11.5-14.0) % Plt Count (150-450) K/mm3 MPV (7.5-11.0) fl Segmented Neutrophils (36.-66.) % Lymphocytes (Manual) (24-44) % Eosinophils (Manual) (0.00-3.0) % Basophils (Manual) (0.0-1.0) % Hypochromia Platelet Estimate (NORMAL) RBC Morphology PT (8.83-12.87) SECONDS INR (0.8-3.0) APTT (24.1-36.1) SECONDS D-Dimer (215-500) ng/mL Sodium (137-145) mmol/L Potassium (3.5-5.1) mmol/L Chloride (98-107) mmol/L Carbon Dioxide (22-30) mmol/L Anion Gap (5-15) MEQ/L BUN (9-20) mg/dL Creatinine (0.66-1.25) mg/dL Estimated GFR ML/MIN Glucose (74-106) mg/dL Lactic Acid (0.4-2.0) Calcium (8.4-10.2) mg/dL Magnesium (1.6-2.3) mg/dL Total Bilirubin (0.2-1.3) mg/dL AST (17-59) U/L ALT (0-50) U/L Alkaline Phosphatase (38-126) U/L Troponin I (0.000-0.034) ng/mL NT-Pro-B Natriuret Pep (0-1800) pg/mL Serum Total Protein (6.3-8.2) g/dL Albumin (3.5-5.0) g/dL Urine Color YELLOW (YELLOW) Urine Appearance CLEAR (CLEAR) Urine pH 8.0 (5-6) Ur Specific [place] 1.006 (1.005-1.025) Urine Protein NEGATIVE (Negative) Urine Ketones NEGATIVE (NEGATIVE) Urine Blood NEGATIVE (0-5) Marcelino/ul Urine Nitrite NEGATIVE (NEGATIVE) Urine Bilirubin NEGATIVE (NEGATIVE) Urine Urobilinogen NEGATIVE (0-1) mg/dL Ur Leukocyte Esterase NEGATIVE (NEGATIVE) Urine WBC (Auto) NONE (0-5) /HPF Urine RBC (Auto) NONE (0-2) /HPF U Epithel Cells (Auto) NONE (FEW) /HPF Urine Bacteria (Auto) NONE (NEGATIVE) /HPF Urine Mucus (Auto) SLIGHT (NEGATIVE) /HPF Urine Culture Reflexed NO (NO) Urine Glucose NEGATIVE (NEGATIVE) mg/dL Influenza Type A Ag (NEGATIVE) Influenza Type B Ag (NEGATIVE) RSV (PCR) (Negative) SARS-CoV-2 (PCR) NEGATIVE (NEGATIVE) ABO Group Pending Rh Factor Pending Antibody Screen Pending Crossmatch Pending 06/28/20 06/28/20 06/28/20 Range/Units 11:15 11:15 11:15 WBC (4.0-10.5) K/mm3 RBC (4.1-5.6) M/mm3 Hgb (12.5-18.0) gm/dl Hct (42-50) % MCV (78-100) fl MCH (26-32) pg MCHC (32-36) g/dl RDW (11.5-14.0) % Plt Count (150-450) K/mm3 MPV (7.5-11.0) fl Segmented Neutrophils (36.-66.) % Lymphocytes (Manual) (24-44) % Eosinophils (Manual) (0.00-3.0) % Basophils (Manual) (0.0-1.0) % Hypochromia Platelet Estimate (NORMAL) RBC Morphology PT 14.2 H (8.83-12.87) SECONDS INR 1.25 (0.8-3.0) APTT 26.3 (24.1-36.1) SECONDS D-Dimer 1776 H* (215-500) ng/mL Sodium (137-145) mmol/L Potassium (3.5-5.1) mmol/L Chloride (98-107) mmol/L Carbon Dioxide (22-30) mmol/L Anion Gap (5-15) MEQ/L BUN (9-20) mg/dL Creatinine (0.66-1.25) mg/dL Estimated GFR ML/MIN Glucose (74-106) mg/dL Lactic Acid (0.4-2.0) Calcium (8.4-10.2) mg/dL Magnesium (1.6-2.3) mg/dL Total Bilirubin (0.2-1.3) mg/dL AST (17-59) U/L ALT (0-50) U/L Alkaline Phosphatase (38-126) U/L Troponin I 0.075 H* (0.000-0.034) ng/mL NT-Pro-B Natriuret Pep (0-1800) pg/mL Serum Total Protein (6.3-8.2) g/dL Albumin (3.5-5.0) g/dL Urine Color (YELLOW) Urine Appearance (CLEAR) Urine pH (5-6) Ur Specific [place] (1.005-1.025) Urine Protein (Negative) Urine Ketones (NEGATIVE) Urine Blood (0-5) Marcelino/ul Urine Nitrite (NEGATIVE) Urine Bilirubin (NEGATIVE) Urine Urobilinogen (0-1) mg/dL Ur Leukocyte Esterase (NEGATIVE) Urine WBC (Auto) (0-5) /HPF Urine RBC (Auto) (0-2) /HPF U Epithel Cells (Auto) (FEW) /HPF Urine Bacteria (Auto) (NEGATIVE) /HPF Urine Mucus (Auto) (NEGATIVE) /HPF Urine Culture Reflexed (NO) Urine Glucose (NEGATIVE) mg/dL Influenza Type A Ag NEGATIVE (NEGATIVE) Influenza Type B Ag NEGATIVE (NEGATIVE) RSV (PCR) NEGATIVE (Negative) SARS-CoV-2 (PCR) (NEGATIVE) ABO Group Rh Factor Antibody Screen Crossmatch 06/28/20 06/28/20 06/28/20 Range/Units 11:15 11:15 10:59 WBC 11.6 H (4.0-10.5) K/mm3 RBC 1.64 L* (4.1-5.6) M/mm3 Hgb 5.4 L* (12.5-18.0) gm/dl Hct 18.7 L (42-50) % MCV 114.0 H (78-100) fl MCH 32.9 H (26-32) pg MCHC 28.9 L (32-36) g/dl RDW 15.6 H (11.5-14.0) % Plt Count 262 (150-450) K/mm3 MPV 9.3 (7.5-11.0) fl Segmented Neutrophils 91 H (36.-66.) % Lymphocytes (Manual) 6 L (24-44) % Eosinophils (Manual) 1 (0.00-3.0) % Basophils (Manual) 2 H (0.0-1.0) % Hypochromia 3+ Platelet Estimate NORMAL (NORMAL) RBC Morphology ABNORMAL PT (8.83-12.87) SECONDS INR (0.8-3.0) APTT (24.1-36.1) SECONDS D-Dimer (215-500) ng/mL Sodium 135 L (137-145) mmol/L Potassium 4.5 (3.5-5.1) mmol/L Chloride 95 L (98-107) mmol/L Carbon Dioxide 33 H (22-30) mmol/L Anion Gap 11.7 (5-15) MEQ/L BUN 52 H (9-20) mg/dL Creatinine 1.75 H (0.66-1.25) mg/dL Estimated GFR 40.3 ML/MIN Glucose 150 H (74-106) mg/dL Lactic Acid 2.1 H (0.4-2.0) Calcium 8.6 (8.4-10.2) mg/dL Magnesium 2.2 (1.6-2.3) mg/dL Total Bilirubin 0.50 (0.2-1.3) mg/dL AST 22 (17-59) U/L ALT 12 (0-50) U/L Alkaline Phosphatase 100 (38-126) U/L Troponin I (0.000-0.034) ng/mL NT-Pro-B Natriuret Pep 3400 H (0-1800) pg/mL Serum Total Protein 6.5 (6.3-8.2) g/dL Albumin 3.5 (3.5-5.0) g/dL Urine Color (YELLOW) Urine Appearance (CLEAR) Urine pH (5-6) Ur Specific [place] (1.005-1.025) Urine Protein (Negative) Urine Ketones (NEGATIVE) Urine Blood (0-5) Marcelino/ul Urine Nitrite (NEGATIVE) Urine Bilirubin (NEGATIVE) Urine Urobilinogen (0-1) mg/dL Ur Leukocyte Esterase (NEGATIVE) Urine WBC (Auto) (0-5) /HPF Urine RBC (Auto) (0-2) /HPF U Epithel Cells (Auto) (FEW) /HPF Urine Bacteria (Auto) (NEGATIVE) /HPF Urine Mucus (Auto) (NEGATIVE) /HPF Urine Culture Reflexed (NO) Urine Glucose (NEGATIVE) mg/dL Influenza Type A Ag (NEGATIVE) Influenza Type B Ag (NEGATIVE) RSV (PCR) (Negative) SARS-CoV-2 (PCR) (NEGATIVE) ABO Group Rh Factor Antibody Screen Crossmatch - Progress Progress: improved Air Movement: good Blood Culture(s) Obtained: Yes - Departure Departure Disposition: In-patient Admission Clinical Impression: CHF (congestive heart failure), NYHA class III, Chronic renal disease, stage 4, severely decreased glomerular filtration rate (GFR) between 15-29 mL/min/1.73 square meter, Elevated troponin Condition: Serious Critical Care Time: Yes Critical Care Time(excluding separately billable procedures): Critical 30-74 mins Referrals: SADIA GROVER MD [Primary Care Provider] - Instructions: Heart Failure, Heart Failure, Adult (DC)
[2020-06-28 13:18] LABS: ABO TYPING A; RH TYPING POSITIVE
[2020-06-28 13:19] LABS: Antibody Screen POSITIVE (NEGATIVE)
[2020-06-28] MEDS ORDERED: MEDICATION INTERVENTION MC SCH (14:45)
[2020-06-28] MEDS ORDERED: Lasix 20 MG/2 ML IV SCH (17:00)
[2020-06-28] MEDS ORDERED: MAALOX ES 30 ML UNIT DOSE PO ONE (17:58)
[2020-06-28] MEDS ORDERED: Pepcid 20 MG VIAL IV SCH (18:00)
[2020-06-28] MEDS ORDERED: PROTONIX 40 MG IV IV ONE (18:04)
[2020-06-28] MEDS ORDERED: Sodium Chloride 0.9% 500 ML 500 ML IV ONE (18:04)
[2020-06-28] MEDS: Pepcid 20 MG VIAL IV SCH (18:05)
[2020-06-28] MEDS: PROTONIX 40 MG IV*** 80 MG in Sodium Chloride 0.9% 500 ML 500 ML IV SCH (18:12)
[2020-06-28] MEDS: Neurontin 100 MG PO SCH (21:15)
[2020-06-28] MEDS: Zocor 10MG PO SCH (21:15)
[2020-06-28] MEDS: MAG-OX 400 PO SCH (21:16)
[2020-06-28] MEDS ORDERED: NON-FORMULARY ITEM (Atorvastatin Calcium [Lipitor] 10 MG) PO SCH (22:00)
[2020-06-29] MEDS ORDERED: Sodium Chloride 0.9% 500 ML 0 ML IV ONE (01:42)
[2020-06-29] MEDS ORDERED: Sodium Chloride 0.9% 500 ML 500 ML IV ONE ×2 (03:28→22:20)
[2020-06-29] MEDS ORDERED: PROTONIX 40 MG IV IV ONE (03:28)
[2020-06-29] MEDS: PROTONIX 40 MG IV*** 80 MG in Sodium Chloride 0.9% 500 ML 500 ML IV SCH ×2 (03:35→14:05)
[2020-06-29 05:01] LABS: Hematocrit 15.4 % (42-50); Mean Cell Volume 115.8 fl (78-100); Mean Corpuscular Hemoglobin 34.6 pg (26-32); Mean Corpuscular Hgb Concent. 29.9 g/dl (32-36); Mean Platelet Volume 8.8 fl (7.5-11.0); Platelet Count 214 K/mm3 (150-450); Red Cell Distribution Width 15.4 % (11.5-14.0); White Blood Count 8.7 K/mm3 (4.0-10.5)
[2020-06-29 05:12] LABS: Hemoglobin 4.6 gm/dl (12.5-18.0); Red Blood Count 1.33 M/mm3 (4.1-5.6)
[2020-06-29 05:21] LABS: CROSS MATCH (PRBC) COMPATIBLE (COMPATIBLE)
[2020-06-29 05:33] LABS: ANION GAP 8.1 MEQ/L (5-15); Calcium 7.8 mg/dL (8.4-10.2); Creatinine 1 1.74 mg/dL (0.66-1.25); EST GLOMERULAR FILTRATION RATE 40.5 ML/MIN; Potassium 3.7 mmol/L (3.5-5.1)
[2020-06-29] MEDS: PROVENTIL 2.5 MG/3 ML NEB IH PRN (06:01)
[2020-06-29] MEDS: Sodium Chloride 0.9% 1000 ML 1,000 ML IV SCH (07:53)
--- NOTE | 2020-06-29 08:43 | XRAY ---
Indication: Short of breath. Comparison: One day earlier Portable chest unchanged again demonstrating pulmonary emphysema, chronic interstitial lung markings, calcified granulomas, and left hemithorax calcified pleural plaquing. Heart is not enlarged. No new cardiopulmonary abnormalities.
[2020-06-29] MEDS: Lasix 40 MG/4 ML IV SCH ×2 (08:56→17:27)
[2020-06-29] MEDS: Pepcid 20 MG VIAL IV SCH ×2 (08:56→22:22)
[2020-06-29] MEDS: Neurontin 100 MG PO SCH ×2 (09:30→22:20)
[2020-06-29] MEDS: Klor Con 10 MEQ PO SCH (09:31)
[2020-06-29] MEDS: MEDROL 4 MG PO SCH (09:31)
[2020-06-29] MEDS: FOLATE 1 MG PO SCH (09:31)
[2020-06-29] MEDS: Lopressor 50 MG PO SCH ×2 (09:32→12:16)
[2020-06-29] MEDS: MAG-OX 400 PO SCH ×2 (09:32→22:21)
[2020-06-29] MEDS ORDERED: AZATHIOPRINE 75 MG PO SCH (10:00)
[2020-06-29] MEDS ORDERED: Lopressor 25MG Tab PO SCH (10:00)
--- NOTE | 2020-06-29 12:54 | PCM.HP ---
History of Present Illness - Chief Complaint Chief Complaint: worsening leg swelling for 1 week History of Present Illness: is a 79 -year-old white male presents with a history of CHF with increasing shortness of breath and increased O2 requirement at home normally he is on 2 L of oxygen and is on 4-5 here he has had a 5 pound weight gain over the last few days his fever has been low-grade and he has increased peripheral edema. - Review of Systems Constitutional: Fatigue, Lethargy, Malaise, No Fever, No Chills Eyes: No Symptoms Ears, Nose, & Throat: No Symptoms Respiratory: Cough, Orthopnea, Short Of Breath Cardiac: Chest Pain, Edema, No Syncope Abdominal/Gastrointestinal: No Abdominal Pain, No Nausea, No Vomiting, No Diarrhea Genitourinary Symptoms: No Dysuria Musculoskeletal: No Back Pain, No Neck Pain Skin: No Rash Neurological: No Dizziness, No Focal Weakness, No Sensory Changes Psychological: No Symptoms Endocrine: No Symptoms Hematologic/Lymphatic: No Symptoms Immunological/Allergic: No Symptoms Medications & Allergies Home Medications: Home Medication List Folic Acid 1 mg PO DAILY 01/28/15 [History Confirmed 06/28/20] Magnesium Oxide 400 mg [Mag-Ox 400] 400 mg PO BID 04/03/15 [History Confirmed 06/28/20] Bumetanide [Bumex] 2 mg PO BID 10/29/16 [History Confirmed 06/28/20] Metoprolol Tartrate 25 mg [Lopressor 25MG Tab] 50 mg PO DAILY 02/03/17 [History Confirmed 06/28/20] Methylprednisolone 4 mg [Medrol 4 mg] 8 mg PO DAILY 11/10/18 [History Confirmed 06/28/20] Gabapentin [Neurontin] 100 mg PO DAILY 04/24/20 [History Confirmed 06/28/20] azaTHIOprine [Azathioprine] 75 mg PO DAILY 04/24/20 [History Confirmed 06/28/20] Apixaban [Eliquis 2.5 mg Tablet] 2.5 mg PO BID #60 tablet 04/27/20 [Rx Confirmed 06/28/20] Atorvastatin Calcium [Lipitor] 10 mg PO HS 06/28/20 [History Confirmed 06/28/20] Clopidogrel Bisulfate 75 mg [PLAVIX 75 MG Tablet] 75 mg PO DAILY 06/28/20 [History Confirmed 06/28/20] Gabapentin 200 mg PO HS 06/28/20 [History Confirmed 06/28/20] Potassium Chloride [Klor-Con 10] 50 meq PO DAILY 06/28/20 [History Confirmed 06/28/20] metOLazone [Metolazone] 5 mg PO Q48H 06/28/20 [History Confirmed 06/28/20] Allergies/Adverse Reactions: Allergies Allergy/AdvReac Type Severity Reaction Status Date / Time No Known Drug Allergies Allergy Verified 06/28/20 10:51 - Past Medical History Past Medical History: Yes Neurological History: TIA ENT History: Cataracts Cardiac History: Congestive Heart Failure, Coronary Artery Disease, High Cholesterol, Hypertension, Myocardial Infarction (NM) Respiratory History: CHF, COPD, Lung Cancer, Pneumonia Endocrine Medical History: No Pertinent History Musculoskelatal History: No Pertinent History GI Medical History: GI Bleed, Other History: Other Pyscho-Social History: No Pertinent History Male Reproductive Disorders: No Pertinent History Comment: some kidney failure, anemia with blood transfusion, Lung cancer left upper lobe - Past Surgical History Past Surgical History: Yes Neuro Surgical History: No Pertinent History Cardiac History: Cardiac Catheterization, Cardiac Stent Respiratory Surgery: No Pertinent History GI Surgical History: Appendectomy, Hernia Repair Genitourinary Surgical Hx: No Pertinent History Musculskeletal Surgical Hx: Orthopedic Surgery Male Surgical History: No Pertinent History Other Surgical History: EGD AND COLONOSCOPY LAST DONE APRIL 2016 Received many blood transfusions during that time. 2019 kyphoplasty t8-t9, cardiac stent x 2. 2020-lumbar back surgery - Social History Smoking Status: Former smoker How long have you smoked: 50 yrs Exposure to second hand smoke: No Alcohol: None Drug Use: none - Physical Exam Vital Signs: Vital Signs - 24 hr Temp Pulse Resp BP Pulse Ox 06/29/20 12:00 90 06/29/20 11:41 98.5 F 81 18 115/56 92 L 06/29/20 07:27 88 06/29/20 07:16 98.5 F 82 17 134/50 98 06/29/20 06:33 87 06/29/20 06:01 87 22 97 06/29/20 03:57 98.5 F 80 20 125/54 100 06/29/20 03:56 80 06/29/20 00:01 79 09/09/20 23:47 79 17 110/50 100 06/28/20 20:21 84 18 100 06/28/20 20:00 84 06/28/20 19:34 97.6 F 84 17 113/52 100 06/28/20 16:00 72 06/28/20 15:10 78 16 118/57 100 06/28/20 14:45 75 19 118/57 06/28/20 14:38 100 06/28/20 13:12 98.0 F 85 16 162/51 100 06/28/20 13:09 88 20 162/51 80 L Oxygen-Last 24 hours Oxygen Flowrate (L/min)-RT 3 General Appearance: no apparent distress, alert Neurologic Exam: alert, oriented x 3, cooperative, normal mood/affect, nml cerebellar function, nml station & gait, sensation nml, No motor deficits Eye Exam: PERRL/EOMI, eyes nml inspection Ears, Nose, Throat Exam: normal ENT inspection, TMs normal, pharynx normal, moist mucous membranes Neck Exam: normal inspection, non-tender, supple, full range of motion Respiratory Exam: normal breath sounds, diminished breath sounds, prolonged expirations, crackles/rales, rhonchi, No respiratory distress Cardiovascular Exam: regular rate/rhythm, normal heart sounds, normal peripheral pulses Gastrointestinal/Abdomen Exam: soft, normal bowel sounds, No tenderness, No mass Back Exam: normal inspection, normal range of motion, No CVA tenderness, No vertebral tenderness Extremity Exam: normal inspection, normal range of motion, pelvis stable Skin Exam: normal color, warm, dry, No rash Lymphatic Exam: No adenopathy Results - Labs Lab/Micro Results: Lab Results-Last 24 Hours 06/28/20 06/28/20 06/28/20 Range/Units 12:15 12:15 12:15 WBC (4.0-10.5) K/mm3 RBC (4.1-5.6) M/mm3 Hgb (12.5-18.0) gm/dl Hct (42-50) % MCV (78-100) fl MCH (26-32) pg MCHC (32-36) g/dl RDW (11.5-14.0) % Plt Count (150-450) K/mm3 MPV (7.5-11.0) fl Sodium (137-145) mmol/L Potassium (3.5-5.1) mmol/L Chloride (98-107) mmol/L Carbon Dioxide (22-30) mmol/L Anion Gap (5-15) MEQ/L BUN (9-20) mg/dL Creatinine (0.66-1.25) mg/dL Estimated GFR ML/MIN Glucose (74-106) mg/dL Lactic Acid (0.4-2.0) Calcium (8.4-10.2) mg/dL Troponin I (0.000-0.034) ng/mL NT-Pro-B Natriuret Pep (0-1800) pg/mL Stool Occult Blood (NEGATIVE) ABO Group A Rh Factor POSITIVE Antibody Screen POSITIVE (NEGATIVE) Crossmatch COMPATIBLE COMPATIBLE COMPATIBLE (COMPATIBLE) 06/28/20 06/28/20 06/28/20 Range/Units 12:15 13:35 14:05 WBC (4.0-10.5) K/mm3 RBC (4.1-5.6) M/mm3 Hgb (12.5-18.0) gm/dl Hct (42-50) % MCV (78-100) fl MCH (26-32) pg MCHC (32-36) g/dl RDW (11.5-14.0) % Plt Count (150-450) K/mm3 MPV (7.5-11.0) fl Sodium (137-145) mmol/L Potassium (3.5-5.1) mmol/L Chloride (98-107) mmol/L Carbon Dioxide (22-30) mmol/L Anion Gap (5-15) MEQ/L BUN (9-20) mg/dL Creatinine (0.66-1.25) mg/dL Estimated GFR ML/MIN Glucose (74-106) mg/dL Lactic Acid 1.5 (0.4-2.0) Calcium (8.4-10.2) mg/dL Troponin I 0.059 H* (0.000-0.034) ng/mL NT-Pro-B Natriuret Pep (0-1800) pg/mL Stool Occult Blood (NEGATIVE) ABO Group Rh Factor Antibody Screen (NEGATIVE) Crossmatch COMPATIBLE (COMPATIBLE) 06/28/20 06/28/20 06/28/20 Range/Units 16:52 17:30 18:55 WBC (4.0-10.5) K/mm3 RBC (4.1-5.6) M/mm3 Hgb (12.5-18.0) gm/dl Hct (42-50) % MCV (78-100) fl MCH (26-32) pg MCHC (32-36) g/dl RDW (11.5-14.0) % Plt Count (150-450) K/mm3 MPV (7.5-11.0) fl Sodium (137-145) mmol/L Potassium (3.5-5.1) mmol/L Chloride (98-107) mmol/L Carbon Dioxide (22-30) mmol/L Anion Gap (5-15) MEQ/L BUN (9-20) mg/dL Creatinine (0.66-1.25) mg/dL Estimated GFR ML/MIN Glucose (74-106) mg/dL Lactic Acid (0.4-2.0) Calcium (8.4-10.2) mg/dL Troponin I 0.063 H* 0.057 H* (0.000-0.034) ng/mL NT-Pro-B Natriuret Pep (0-1800) pg/mL Stool Occult Blood POSITIVE A (NEGATIVE) ABO Group Rh Factor Antibody Screen (NEGATIVE) Crossmatch (COMPATIBLE) 06/28/20 06/29/20 06/29/20 Range/Units 23:20 04:30 04:30 WBC 8.7 (4.0-10.5) K/mm3 RBC 1.33 L* (4.1-5.6) M/mm3 Hgb 4.6 L* (12.5-18.0) gm/dl Hct 15.4 L (42-50) % MCV 115.8 H (78-100) fl MCH 34.6 H (26-32) pg MCHC 29.9 L (32-36) g/dl RDW 15.4 H (11.5-14.0) % Plt Count 214 (150-450) K/mm3 MPV 8.8 (7.5-11.0) fl Sodium 135 L (137-145) mmol/L Potassium 3.7 (3.5-5.1) mmol/L Chloride 96 L (98-107) mmol/L Carbon Dioxide 35 H (22-30) mmol/L Anion Gap 8.1 (5-15) MEQ/L BUN 45 H (9-20) mg/dL Creatinine 1.74 H (0.66-1.25) mg/dL Estimated GFR 40.5 ML/MIN Glucose 121 H (74-106) mg/dL Lactic Acid (0.4-2.0) Calcium 7.8 L (8.4-10.2) mg/dL Troponin I 0.065 H* (0.000-0.034) ng/mL NT-Pro-B Natriuret Pep 5730 H (0-1800) pg/mL Stool Occult Blood (NEGATIVE) ABO Group Rh Factor Antibody Screen (NEGATIVE) Crossmatch (COMPATIBLE) - Radiology Impressions Radiology Exams & Impressions: Radiology Procedures Category Date Time Status CHEST 1 VIEW (PORTABLE) IN AM Exams 06/29/20 06:00 Completed CHEST 1 VIEW (PORTABLE) Stat Exams 06/28/20 11:00 Completed - Other Procedures and Tests Respiratory Therapy 06/28/20 12:44 Oxygen NASAL CANNULA 5 lpm 06/28/20 14:38 Respiratory Therapy Assessment DAILY Assessment/Plan (1) Angiodysplasia of duodenum with hemorrhage Current Visit: Yes Status: Acute Assessment & Plan: Chief Complaint Diagnosis CHF, SEVERE ANEMIA Allergies Allergy/AdvReac Type Severity Reaction Status Date / Time No Known Drug Allergies Allergy Verified 06/28/20 10:51 Vital Signs (Last 24 hours) Temp Pulse Resp BP Pulse Ox 06/29/20 12:00 90 06/29/20 11:41 98.5 F 81 18 115/56 92 L 06/29/20 07:27 88 06/29/20 07:16 98.5 F 82 17 134/50 98 06/29/20 06:33 87 06/29/20 06:01 87 22 97 06/29/20 03:57 98.5 F 80 20 125/54 100 06/29/20 03:56 80 06/29/20 00:01 79 06/28/20 23:47 79 17 110/50 100 06/28/20 20:21 84 18 100 06/28/20 20:00 84 06/28/20 19:34 97.6 F 84 17 113/52 100 06/28/20 16:00 72 06/28/20 15:10 78 16 118/57 100 06/28/20 14:45 75 19 118/57 100 06/28/20 14:38 100 06/28/20 13:12 98.0 F 85 16 162/51 100 06/28/20 13:09 88 20 162/51 80 L Home Medications Medication Instructions Recorded Confirmed Last Taken Type Atorvastatin Calcium [Lipitor] 10 mg PO HS 06/28/20 06/28/20 06/27/20 History Clopidogrel Bisulfate 75 mg 75 mg PO DAILY 06/28/20 06/28/20 06/28/20 History [PLAVIX 75 MG Tablet] Gabapentin 200 mg PO HS 06/28/20 06/28/20 06/27/20 History Potassium Chloride [Klor-Con 10] 50 meq PO DAILY 06/28/20 06/28/20 06/28/20 History metOLazone [Metolazone] 5 mg PO Q48H 06/28/20 06/28/20 06/27/20 History Current Medications Generic Name Dose Route Start Last Admin Trade Name J Carlosq PRN Reason Stop Dose Admin Albuterol Sulfate 2.5 mg 06/28/20 19:00 06/29/20 06:01 Proventil 2.5 Mg/3 Ml Neb IH 07/28/20 18:59 2.5 mg Q6H PRN PRN Administration SHORTNESS OF BREATH/WHEEZING Famotidine 20 mg 06/28/20 18:04 06/29/20 08:56 Pepcid 20 Mg Vial IV 07/28/20 17:59 20 mg Q12HT SIMBA Administration Folic Acid 1 mg 06/29/20 10:00 06/29/20 09:31 Folate 1 Mg PO 07/29/20 09:59 1 mg DAILY SIMBA Administration Furosemide 40 mg 06/29/20 10:00 06/29/20 08:56 Lasix 40 Mg/4 Ml IV 07/29/20 09:59 40 mg BID DIURETIC SIMBA Administration Gabapentin 200 mg 06/28/20 22:00 06/28/20 21:15 Neurontin 100 Mg PO 07/28/20 21:59 200 mg HS SIMBA Administration Gabapentin 100 mg 06/29/20 10:00 06/29/20 09:30 Neurontin 100 Mg PO 07/29/20 09:59 100 mg DAILY SIMBA Administration Sodium Chloride 1,000 mls @ 50 mls/hr 06/28/20 11:00 06/29/20 07:53 Sodium Chloride 0.9% 1000 Ml IV 07/28/20 10:59 Not Given .Q20H SIMBA Pantoprazole Sodium 80 mg/ 500 mls @ 50 mls/hr 06/28/20 18:15 06/29/20 03:35 Sodium Chloride IV 07/28/20 18:14 8 mg/hr .Q10H SIMBA 50 mls/hr Administration Magnesium Oxide 400 mg 06/28/20 22:00 06/29/20 09:32 Mag-Ox 400 PO 07/28/20 21:59 400 mg BID SIMBA Administration Methylprednisolone 8 mg 06/29/20 10:00 06/29/20 09:31 Medrol 4 Mg PO 07/29/20 09:59 8 mg DAILY SIMBA Administration Metoprolol Tartrate 50 mg 06/29/20 10:00 06/29/20 12:16 Lopressor 50 Mg PO 07/29/20 09:59 50 mg DAILY SIMBA Administration Miscellaneous Information 0 each 06/28/20 14:45 Medication Intervention MC 07/28/20 14:44 .RN TO CHECK WITH PT SIMBA Potassium Chloride 50 meq 06/29/20 10:00 06/29/20 09:31 Klor Con 10 Meq PO 07/29/20 09:59 50 meq DAILY SIMBA Administration Simvastatin 10 mg 06/28/20 22:00 06/28/20 21:15 Zocor 10mg PO 07/28/20 21:59 10 mg HS SIMBA Administration Discontinued Medications Generic Name Dose Route Start Last Admin Trade Name Freq PRN Reason Stop Dose Admin Al Hydrox/Mg Hydrox/Simethicone 30 ml 06/28/20 17:58 06/28/20 17:58 Maalox Es 30 Ml Unit Dose PO 06/28/20 17:59 30 ml STAT ONE Administration Famotidine 40 mg 06/28/20 18:00 06/28/20 18:05 Pepcid 20 Mg Vial IV 07/28/20 17:59 Not Given Q12HT SIMBA Furosemide 40 mg 06/28/20 10:59 06/28/20 11:19 Lasix 40 Mg/4 Ml IV 06/28/20 11:00 40 mg STAT ONE Administration Furosemide Confirm 06/28/20 11:18 Lasix 40 Mg/4 Ml Administered 06/28/20 11:19 Dose 40 mg .ROUTE .STK-MED ONE Furosemide 40 mg 06/28/20 17:00 06/28/20 17:02 Lasix 20 Mg/2 Ml IV 07/28/20 16:59 40 mg BID DIURETIC SIMBA Administration Sodium Chloride Confirm 06/28/20 18:04 Sodium Chloride 0.9% 500 Ml Administered 06/28/20 18:05 Dose 500 mls @ ud IV .STK-MED ONE Sodium Chloride Confirm 06/29/20 01:42 Sodium Chloride 0.9% 500 Ml Administered 06/29/20 01:43 Dose 500 mls @ ud IV .STK-MED ONE Sodium Chloride Confirm 06/29/20 03:28 Sodium Chloride 0.9% 500 Ml Administered 06/29/20 03:29 Dose 500 mls @ ud IV .STK-MED ONE Pantoprazole Sodium Confirm 06/28/20 18:04 Protonix 40 Mg Iv Administered 06/28/20 18:05 Dose 80 mg IV .STK-MED ONE Pantoprazole Sodium Confirm 06/29/20 03:28 Protonix 40 Mg Iv Administered 06/29/20 03:29 Dose 80 mg IV .STK-MED ONE Intake & Output (Last 24 hours) 06/27/20 06/28/20 06/29/20 06/30/20 11:59 11:59 11:59 11:59 Intake Total 1862 Output Total 200 3775 Balance -200 -1913 Weight 73 kg 78.1 kg Microbiology Results (Last 24 hours) 06/28/20 11:15 Blood Blood Culture Gram Stain - Pending 06/28/20 11:15 Blood Blood Culture - Pending 06/28/20 11:15 Blood Blood Culture Gram Stain - Pending 06/28/20 11:15 Blood Blood Culture - Pending Laboratory Results (Last 24 hours) 06/29/20 06/29/20 06/28/20 04:30 04:30 23:20 WBC 8.7 RBC 1.33 L* Hgb 4.6 L* Hct 15.4 L MCV 115.8 H MCH 34.6 H MCHC 29.9 L RDW 15.4 H Plt Count 214 MPV 8.8 Sodium 135 L Potassium 3.7 Chloride 96 L Carbon Dioxide 35 H Anion Gap 8.1 BUN 45 H Creatinine 1.74 H Estimated GFR 40.5 Glucose 121 H Lactic Acid Calcium 7.8 L Troponin I 0.065 H* NT-Pro-B Natriuret Pep 5730 H Stool Occult Blood ABO Group Rh Factor Antibody Screen Crossmatch 06/28/20 06/28/20 06/28/20 18:55 17:30 16:52 WBC RBC Hgb Hct MCV MCH MCHC RDW Plt Count MPV Sodium Potassium Chloride Carbon Dioxide Anion Gap BUN Creatinine Estimated GFR Glucose Lactic Acid Calcium Troponin I 0.057 H* 0.063 H* NT-Pro-B Natriuret Pep Stool Occult Blood POSITIVE A ABO Group Rh Factor Antibody Screen Crossmatch 06/28/20 06/28/20 06/28/20 14:05 13:35 12:15 WBC RBC Hgb Hct MCV MCH MCHC RDW Plt Count MPV Sodium Potassium Chloride Carbon Dioxide Anion Gap BUN Creatinine Estimated GFR Glucose Lactic Acid 1.5 Calcium Troponin I 0.059 H* NT-Pro-B Natriuret Pep Stool Occult Blood ABO Group Rh Factor Antibody Screen Crossmatch COMPATIBLE 06/28/20 06/28/20 06/28/20 12:15 12:15 12:15 WBC RBC Hgb Hct MCV MCH MCHC RDW Plt Count MPV Sodium Potassium Chloride Carbon Dioxide Anion Gap BUN Creatinine Estimated GFR Glucose Lactic Acid Calcium Troponin I NT-Pro-B Natriuret Pep Stool Occult Blood ABO Group A Rh Factor POSITIVE Antibody Screen POSITIVE Crossmatch COMPATIBLE COMPATIBLE COMPATIBLE Orders (Last 24 hours) Category Date Time Status Bedrest ROUTINE Activity 06/28/20 12:44 Active Admit as Inpatient ROUTINE Care 06/28/20 12:44 Active Code Status Order ROUTINE Care 06/28/20 12:44 Active Consent,Obtain ROUTINE Care 06/28/20 12:48 Completed IV Care Q6H Care 06/28/20 12:44 Active Implement CHF Pathway ROUTINE Care 06/28/20 12:44 Active Miscellaneous Nursing Order ROUTINE Care 06/28/20 20:00 Active Telemetry q4h Care 06/28/20 12:44 Active Weight,Daily 0600 Care 06/28/20 12:44 Active Consult Cardiology ROUTINE Cons 06/29/20 11:58 Completed Low Sodium (1.5-2gram Sodium) Diet 06/28/20 Dinner Active CHEST 1 VIEW (PORTABLE) IN AM Exams 06/29/20 06:00 Completed BLOOD COMPONENT REQUEST Routine Lab 06/29/20 Ordered BLOOD COMPONENT REQUEST Stat Lab 06/28/20 12:15 Completed BMP AM.LAB Lab 06/29/20 04:30 Completed CBC AM.LAB Lab 06/29/20 04:30 Completed FECAL OCCULT BLOOD - SCREENING Stat Lab 06/28/20 17:30 Completed Lactic Acid Stat Lab 06/28/20 13:35 Completed NT PRO BNP AM.LAB Lab 06/29/20 04:30 Completed TROPONIN Q3H Lab 06/28/20 14:05 Completed TROPONIN Q3H Lab 06/28/20 16:52 Completed TROPONIN Q3H Lab 06/28/20 23:20 Completed TROPONIN Stat Lab 06/28/20 18:55 Completed TYPE AND SCREEN Stat Lab 06/28/20 12:15 Completed Albuterol 2.5 mg/3 ml Neb [Proventil 2.5 mg/3 ml Neb Med 06/28/20 19:00 Active ] 2.5 mg IH Q6H PRN PRN Famotidine 20 mg Vial [Pepcid 20 MG VIAL] Med 06/28/20 18:04 Active 20 mg IV Q12HT Famotidine 20 mg Vial [Pepcid 20 MG VIAL] Med 06/28/20 18:00 Discontinued 40 mg IV Q12HT Folic Acid 1 mg [Folate 1 mg] Med 06/29/20 10:00 Active 1 mg PO DAILY Furosemide 20 mg/2 ml [Lasix 20 MG/2 ML] Med 06/28/20 17:00 Discontinued 40 mg IV BID DIURETIC Furosemide 40 mg/4 ml [Lasix 40 MG/4 ML] Med 06/29/20 10:00 Active 40 mg IV BID DIURETIC Gabapentin 100 mg [Neurontin 100 MG] Med 06/29/20 10:00 Active 100 mg PO DAILY Gabapentin 100 mg [Neurontin 100 MG] Med 06/28/20 22:00 Active 200 mg PO HS Mag Hydrox/Al Hydrox/Simeth [Maalox Es 30 ml Unit Med 06/28/20 17:58 Discontinued Dose] 30 ml PO STAT ONE Magnesium Oxide 400 mg [Mag-Ox 400] Med 06/28/20 22:00 Active 400 mg PO BID Medication Intervention Med 06/28/20 14:45 Active 0 each MC .RN TO CHECK WITH PT Methylprednisolone 4 mg [Medrol 4 mg] Med 06/29/20 10:00 Active 8 mg PO DAILY Metoprolol Tartrate 50 mg [Lopressor 50 MG] Med 06/29/20 10:00 Active 50 mg PO DAILY NaCl 0.9% 500 ml [Sodium Chloride 0.9% 500 ML] 500 ml Med 06/28/20 18:15 Active Pantoprazole 40 mg [Protonix 40 mg IV] 80 mg IV 50 mls/hr NaCl 0.9% 500 ml [Sodium Chloride 0.9% 500 ML] 500 ml Med 06/28/20 18:04 Discontinued IV UD NaCl 0.9% 500 ml [Sodium Chloride 0.9% 500 ML] 500 ml Med 06/29/20 01:42 Discontinued IV UD NaCl 0.9% 500 ml [Sodium Chloride 0.9% 500 ML] 500 ml Med 06/29/20 03:28 Discontinued IV UD Pantoprazole 40 mg [Protonix 40 mg IV] Med 06/28/20 18:04 Discontinued 80 mg IV .STK-MED ONE Pantoprazole 40 mg [Protonix 40 mg IV] Med 06/29/20 03:28 Discontinued 80 mg IV .STK-MED ONE Potassium Chloride 10 Meq Tab* [Klor Con 10 MEQ] Med 06/29/20 10:00 Active 50 meq PO DAILY Simvastatin 10 mg [Zocor 10MG] Med 06/28/20 22:00 Active 10 mg PO HS EKG ROUTINE RT 06/28/20 17:54 Completed EKG STAT RT 06/28/20 18:31 Completed Oxygen NASAL CANNULA 5 lpm RT 06/28/20 12:44 Active Pulse Oximetry .continuos RT 06/28/20 19:54 Active Respiratory Therapy Assessment DAILY RT 06/28/20 14:38 Active Patient Care Notes (Last 24 hours) 06/29/20 12:41 Nursing Note by Alyssa Hager dr. and dr. gan at bedside making rounds. plan to dc plavix and resume eloquis @ 2.5mg bid once pt has stabilized. both physicians discussed with pt in depth that he is inoperable in relation to his CAD. Initialized on 06/29/20 12:41 - END OF NOTE 06/29/20 11:09 Case Management Note by GennyKate PATIENT HAS SERVICES THRU [facility]. THEY ARE AWARE HE IS HERE A PATIENT. THEY WILL NEED NOTIFIED AT TIME OF DC AT [phone]. THEY WILL NEED THE DC INSTRUCTIONS, DC MED LIST AND DC SUMMARY(IF AVAILABLE) FAXED TO THEM AT [phone] Initialized on 06/29/20 11:09 - END OF NOTE 06/29/20 10:50 Nursing Note by Alyssa Hager o2sat 100% on 4L. fio2 decreased to 2L NC. Initialized on 06/29/20 10:50 - END OF NOTE 06/29/20 09:20 (created 06/29/20 09:37) Nursing Note by Alyssa Hager 2nd unit prbcs hung Initialized on 06/29/20 09:37 - END OF NOTE 06/29/20 09:00 (created 06/29/20 09:36) Nursing Note by Alyssa Hager 1st unit prbcs complete. Initialized on 06/29/20 09:36 - END OF NOTE 06/29/20 08:51 Nursing Note by Alyssa Hager dr. on phone and updated on pt's status. Initialized on 06/29/20 08:51 - END OF NOTE 06/29/20 08:04 Nursing Note by Alyssa Hager pt on 4L NC. Initialized on 06/29/20 08:04 - END OF NOTE 06/28/20 18:58 Nursing Note by Alyssa Hager DR. UPDATED BY PHONE OF DR. GERMAIN'S SUGGESTION FOR TRANSFUSING MORALES. Initialized on 06/28/20 18:58 - END OF NOTE 06/28/20 18:30 (created 06/29/20 07:37) Nursing Note by [place],Alyssa dr. wicho updated by phone by house superviser (april paiz), he feels the pt needs his prbcs morales and that the pt will more than likely continue to have bouts of chest pain until his hemoglobin is higher. Initialized on 06/29/20 07:37 - END OF NOTE 06/28/20 18:16 Nursing Note by Alyssa Hager PT C/O CHEST PAIN @ A 10, SAYS PAIN IS A BURNING "LIKE FIRE"IN THE MIDDLE OF HIS CHEST. MAALOX GIVEN. DR. GAN UPDATED BY PHONE AND PEPCID IV AND PROTONIX DRIP ORDERED. PEPCID GIVEN, PROTONIX DRIP STARTED @ 50CC/HR. PT SAYS PAIN IS BETTER. RATING IT AT A 3. EKG HOWEVER IS SHOWING CHANGES-TAKEN TO ER FOR ANALYSIS. PT'S MITESH SUAREZ AT BEDSIDE. Initialized on 06/28/20 18:16 - END OF NOTE 06/28/20 14:44 Nursing Note by Alyssa Hager o2 sat 100% on 5L NC> fio2 decreased to 3L NC> Initialized on 06/28/20 14:44 - END OF NOTE Code(s): K31.811 - ANGIODYSPLASIA OF STOMACH AND DUODENUM WITH BLEEDING (2) Anemia Current Visit: Yes Status: Acute Qualifiers: Anemia type: iron deficiency Iron deficiency anemia type: chronic blood loss Qualified Code(s): D50.0 - Iron deficiency anemia secondary to blood loss (chronic) Code(s): D64.9 - ANEMIA, UNSPECIFIED (3) Elevated troponin Current Visit: Yes Status: Acute Code(s): R79.89 - OTHER SPECIFIED ABNORMAL FINDINGS OF BLOOD CHEMISTRY (4) Chronic renal disease, stage 4, severely decreased glomerular filtration rate (GFR) between 15-29 mL/min/1.73 square meter Current Visit: Yes Status: Chronic Code(s): N18.4 - CHRONIC KIDNEY DISEASE, STAGE 4 (SEVERE) (5) COPD (chronic obstructive pulmonary disease) Current Visit: Yes Status: Chronic Qualifiers: COPD type: chronic bronchitis Chronic bronchitis type: simple Qualified Code(s): J41.0 - Simple chronic bronchitis (6) HTN (hypertension), benign Current Visit: Yes Status: Chronic Code(s): I10 - ESSENTIAL (PRIMARY) HYPERTENSION
--- NOTE | 2020-06-29 13:28 | CONS ---
CONSULT DATE: 06/29/2020 BRIEF HISTORY: This is a 79 year old male with known history of coronary artery disease status post previous coronary stenting, who was admitted because of generalized weakness and was found to have profound anemia. He apparently has been losing blood and his initial hemoglobin was in the range of about 5. He is now on the third bag of blood transfusion. He had an episode of chest burning sensation last night. The EKG showed atrial fibrillation with ST segment depression. His troponin I is mildly elevated. The patient was just recently discharged from [facility] after he was admitted for atrial fibrillation and fainting spells at that time. He was found to have non-ST elevation myocardial infarction for which reason he underwent cardiac catheterization which showed two previous stents being patent. However, he has developed a new lesion involving the left main extending to the left anterior descending artery. It was felt he was a high risk procedure and alternative options were given to the patient and we decided to proceed with conservative management. He has done well and has had no recurrence of chest pain. The patient also has a history of fall sustaining a back injury in March and during hospitalization he underwent kyphoplasty which has relieved most of his back pain. The patient is anticoagulated because of recent extensive deep venous thrombosis involving the right lower extremity in addition to the atrial fibrillation. MEDICATIONS: Includes DuoNeb, Bumex, folic acid, gabapentin, Mag-Ox, metolazone, metoprolol, potassium. 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 He had recent weight loss. RESPIRATORY: No hemoptysis. Nonproductive cough. CVS: No palpitations. GI: He has had history of constipation. No dysphagia. He has a history of angiodysplasia. : He has renal insufficiency. PERIPHERAL VASCULAR: Positive for deep venous thrombosis on his right lower extremity. SOCIAL HISTORY: He denies any significant alcohol intake. PHYSICAL EXAMINATION: His blood pressure is 115/56 with a heart rate of 80 in atrial fibrillation, respirations about 20. GENERAL: The patient is an elderly male who is alert, oriented and looks chronically ill. He is not in any form of distress but gets short of breath with very minimal exertion. HEENT: Pale conjunctivae. NECK: No significant JVD. CHEST: The breath sounds are harsh with some basilar crackles. CARDIAC: Heart tones are within normal. The rhythm is irregular. There is a grade 2/6 mid systolic murmur. ABDOMEN: Soft, normal bowel sounds, nontender. EXTREMITIES: There is trace edema right leg. The left lower extremity is mildly swollen. LAB DATA AND DIAGNOSTIC TESTS: Hemoglobin 4.6. Creatinine 1.7. GFR 40. BNP 5730. IMPRESSION: In essence the patient is known to have: 1) Coronary artery disease status post previous coronary stenting. He has some left main LAD disease. Unfortunately, the patient is not a candidate for intervention particularly at this time as he has active bleeding which precludes usage of both anticoagulants and also dual antiplatelet therapy (DAPT) and this was explained to the patient. I will continue with conservative management and correct anemia with blood transfusion. The onset of heartburn is probably some angina probably aggravated by the fact that he is profoundly anemic. After the GI bleed has been stabilized will resume Eliquis at a reduced dose since he has a tendency to bleed. I explained to him that this is not the ideal dosage but this would give him some protection. Because of his tendency to bleed will hold off antiplatelet medication at this time 2) Chronic renal insufficiency. The patient will continue diuretics. 3) Atrial fibrillation. 4) Chronic obstructive lung disease. I will follow up with you.
[2020-06-29 20:03] LABS: Hematocrit 33.1 % (42-50)
[2020-06-29 20:04] LABS: Hemoglobin 10.5 gm/dl (12.5-18.0)
[2020-06-29] MEDS: Zocor 10MG PO SCH (22:21)
[2020-06-29] MEDS: Sodium Chloride 0.9% 10 ML FLUSH Syringe IV SCH (22:23)
[2020-06-30] MEDS: PROTONIX 40 MG IV*** 80 MG in Sodium Chloride 0.9% 500 ML 500 ML IV SCH ×2 (00:13→09:35)
[2020-06-30] MEDS: Sodium Chloride 0.9% 10 ML FLUSH Syringe IV SCH ×3 (05:03→21:20)
[2020-06-30] MEDS: PROVENTIL 2.5 MG/3 ML NEB IH PRN (07:54)
[2020-06-30 07:59] LABS: Hematocrit 33.1 % (42-50); Hemoglobin 10.3 gm/dl (12.5-18.0); Mean Cell Volume 102.2 fl (78-100); Mean Corpuscular Hemoglobin 31.8 pg (26-32); Mean Corpuscular Hgb Concent. 31.1 g/dl (32-36); Mean Platelet Volume 8.7 fl (7.5-11.0); Platelet Count 169 K/mm3 (150-450); Red Blood Count 3.24 M/mm3 (4.1-5.6); Red Cell Distribution Width 18.7 % (11.5-14.0); White Blood Count 7.8 K/mm3 (4.0-10.5)
[2020-06-30 09:10] LABS: ANION GAP 8.2 MEQ/L (5-15); Calcium 8.3 mg/dL (8.4-10.2); Creatinine 1 1.62 mg/dL (0.66-1.25); Potassium 3.4 mmol/L (3.5-5.1)
[2020-06-30] MEDS: Klor Con 10 MEQ PO SCH (09:21)
[2020-06-30] MEDS: Pepcid 20 MG VIAL IV SCH (09:22)
[2020-06-30] MEDS: FOLATE 1 MG PO SCH (09:22)
[2020-06-30] MEDS: Lasix 40 MG/4 ML IV SCH (09:22)
[2020-06-30] MEDS: Neurontin 100 MG PO SCH ×2 (09:22→21:20)
[2020-06-30] MEDS: MEDROL 4 MG PO SCH (09:22)
[2020-06-30] MEDS: MAG-OX 400 PO SCH ×2 (09:22→21:19)
[2020-06-30] MEDS: ELIQUIS 2.5 MG TABLET PO SCH ×2 (09:37→21:19)
[2020-06-30 11:44] LABS: Blood Bank Reference Report See Result Note:
--- NOTE | 2020-06-30 12:05 | PCM.NOTE ---
Date and Time: 06/30/20 1203 Subjective Assessment: doing better - Review of Systems Constitutional: No Fever, No Chills Eyes: No Symptoms Ears, Nose, & Throat: No Symptoms Respiratory: No Cough, No Short Of Breath Cardiac: No Chest Pain, No Edema, No Syncope Abdominal/Gastrointestinal: No Abdominal Pain, No Nausea, No Vomiting, No Diarrhea Genitourinary Symptoms: No Dysuria Musculoskeletal: No Back Pain, No Neck Pain Skin: No Rash Neurological: No Dizziness, No Focal Weakness, No Sensory Changes Psychological: No Symptoms Endocrine: No Symptoms Hematologic/Lymphatic: No Symptoms Immunological/Allergic: No Symptoms Objective Exam General Appearance: no apparent distress, alert Neurologic Exam: alert, oriented x 3, cooperative, normal mood/affect, nml cerebellar function, sensation nml, No motor deficits Skin Exam: normal color, warm, dry Eye Exam: PERRL, EOMI, eyes nml inspection Ears, Nose, Throat Exam: normal ENT inspection, pharynx normal, moist mucous membranes Neck Exam: normal inspection, non-tender, supple, full range of motion Respiratory Exam: normal breath sounds, lungs clear, No respiratory distress Cardiovascular Exam: regular rate/rhythm, normal heart sounds Gastrointestinal/Abdomen Exam: soft, No tenderness, No mass Extremity Exam: normal inspection, normal range of motion Back Exam: normal inspection, normal range of motion, No CVA tenderness, No vertebral tenderness Male Genitalia Exam: deferred Rectal Exam: deferred OBJECTIVE DATA Vital Signs: Vital Signs - 24 hr Temp Pulse Resp BP BP Pulse Ox 06/30/20 11:31 98.6 F 73 20 117/58 94 L 06/30/20 08:29 82 24 95 06/30/20 07:41 81 06/30/20 07:24 98.8 F 79 20 126/75 96 06/30/20 04:00 98.5 F 69 21 139/54 100 06/30/20 00:01 69 06/30/20 00:00 69 20 138/73 100 06/29/20 20:00 98.3 F 71 24 131/58 100 06/29/20 19:47 71 22 97 06/29/20 15:57 98.2 F 86 18 131/73 100 Oxygen-Last 24 hours Oxygen Flowrate (L/min)-RT 2 Oxygen Flowrate (L/min)-RT 2 Oxygen Flowrate (L/min)-RT 2 Pain Assessment - Last Documented Pain Intensity 0 Pain Scale Used 0-10 Pain Scale Intake and Output: Intake & Output 06/28/20 06/29/20 06/30/20 07/01/20 11:59 11:59 11:59 11:59 Intake Total 1862 3537 Output Total 200 7038 3200 Balance -200 -1913 337 Weight 73 kg 78.1 kg 77.3 kg Lab Results: Lab Results-Last 24 Hours 06/28/20 06/29/20 06/29/20 Range/Units 12:15 20:02 22:13 WBC (4.0-10.5) K/mm3 RBC (4.1-5.6) M/mm3 Hgb 10.5 L D (12.5-18.0) gm/dl Hct 33.1 L (42-50) % MCV (78-100) fl MCH (26-32) pg MCHC (32-36) g/dl RDW (11.5-14.0) % Plt Count (150-450) K/mm3 MPV (7.5-11.0) fl Sodium (137-145) mmol/L Potassium (3.5-5.1) mmol/L Chloride (98-107) mmol/L Carbon Dioxide (22-30) mmol/L Anion Gap (5-15) MEQ/L BUN (9-20) mg/dL Creatinine (0.66-1.25) mg/dL Estimated GFR ML/MIN Glucose (74-106) mg/dL Calcium (8.4-10.2) mg/dL Reporting Documentation See Result Note: ABO Group (Off-Site) Pending Antibody ID 1 Off-Site Pending Crossmatch COMPATIBLE (COMPATIBLE) 06/29/20 06/30/20 06/30/20 Range/Units 22:13 07:45 07:45 WBC 7.8 (4.0-10.5) K/mm3 RBC 3.24 L (4.1-5.6) M/mm3 Hgb 10.3 L (12.5-18.0) gm/dl Hct 33.1 L (42-50) % MCV 102.2 H D (78-100) fl MCH 31.8 (26-32) pg MCHC 31.1 L (32-36) g/dl RDW 18.7 H (11.5-14.0) % Plt Count 169 (150-450) K/mm3 MPV 8.7 (7.5-11.0) fl Sodium 137 (137-145) mmol/L Potassium 3.4 L (3.5-5.1) mmol/L Chloride 99 (98-107) mmol/L Carbon Dioxide 33 H (22-30) mmol/L Anion Gap 8.2 (5-15) MEQ/L BUN 33 H (9-20) mg/dL Creatinine 1.62 H (0.66-1.25) mg/dL Estimated GFR 44.0 ML/MIN Glucose 150 H (74-106) mg/dL Calcium 8.3 L (8.4-10.2) mg/dL Reporting Documentation ABO Group (Off-Site) Antibody ID 1 Off-Site Crossmatch COMPATIBLE (COMPATIBLE) Radiology Exams: Radiology Procedures Category Date Time Status CHEST 1 VIEW (PORTABLE) IN AM Exams 06/29/20 06:00 Completed Multi-Disciplinary Progress Notes: Multi-Disciplinary Progress Notes 06/30/20 09:14 Case Management Note by Kate Royal S/W PATIENT THIS AM. HE CONTINUES TO PLAN TO RETURN HOME WITH HOME HEALTHCARE AT THIS TIME. STATES "THE ONLY PLACE IM GOING IS HOME". NOTE LEFT ON REPORT SHEETS FOR STAFF TO NOTIFY [facility] AT TIME OF DC. PATIENT ALREADY HAS HOME OXYGEN SET UP AT HOME Initialized on 06/30/20 09:14 - END OF NOTE Assessment/Plan (1) Angiodysplasia of duodenum with hemorrhage Current Visit: Yes Status: Acute Assessment & Plan: doing better Code(s): K31.811 - ANGIODYSPLASIA OF STOMACH AND DUODENUM WITH BLEEDING (2) Anemia Current Visit: Yes Status: Acute Qualifiers: Anemia type: iron deficiency Iron deficiency anemia type: chronic blood loss Qualified Code(s): D50.0 - Iron deficiency anemia secondary to blood loss (chronic) Code(s): D64.9 - ANEMIA, UNSPECIFIED (3) Elevated troponin Current Visit: Yes Status: Acute Code(s): R79.89 - OTHER SPECIFIED ABNORMAL FINDINGS OF BLOOD CHEMISTRY (4) Chronic renal disease, stage 4, severely decreased glomerular filtration rate (GFR) between 15-29 mL/min/1.73 square meter Current Visit: Yes Status: Chronic Code(s): N18.4 - CHRONIC KIDNEY DISEASE, STAGE 4 (SEVERE) (5) COPD (chronic obstructive pulmonary disease) Current Visit: Yes Status: Chronic Qualifiers: COPD type: chronic bronchitis Chronic bronchitis type: simple Qualified Code(s): J41.0 - Simple chronic bronchitis (6) HTN (hypertension), benign Current Visit: Yes Status: Chronic Code(s): I10 - ESSENTIAL (PRIMARY) HYPERTENSION
[2020-06-30] MEDS: Zocor 10MG PO SCH (21:19)
[2020-06-30] MEDS: Pepcid 20 MG PO SCH (21:22)
[2020-07-01] MEDS: Sodium Chloride 0.9% 10 ML FLUSH Syringe IV SCH (05:24)
[2020-07-01 05:40] LABS: Hematocrit 31.9 % (42-50); Hemoglobin 9.9 gm/dl (12.5-18.0); Mean Cell Volume 102.6 fl (78-100); Mean Corpuscular Hemoglobin 31.8 pg (26-32); Mean Platelet Volume 8.9 fl (7.5-11.0); Platelet Count 158 K/mm3 (150-450); Red Blood Count 3.11 M/mm3 (4.1-5.6); Red Cell Distribution Width 18.1 % (11.5-14.0)
[2020-07-01 05:49] LABS: ANION GAP 7.4 MEQ/L (5-15); Creatinine 1 1.69 mg/dL (0.66-1.25); EST GLOMERULAR FILTRATION RATE 41.9 ML/MIN; Potassium 3.6 mmol/L (3.5-5.1)
[2020-07-01 07:23] VITALS: BP 133/63
[2020-07-01] MEDS: PROVENTIL 2.5 MG/3 ML NEB IH PRN (07:55)
[2020-07-01 08:04] VITALS: PULSE 78; O2SAT 94
--- NOTE | 2020-07-01 08:32 | PCM.DS ---
Discharge Summary Date of Admission: 06/28/20 12:58 Admitting Physician: SADIA GROVER Consults: Consults on Case 06/29/20 11:58 Consult Cardiology ROUTINE Primary Care Provider: SADIA GROVER Allergies Allergies No Known Drug Allergies Allergy (Verified 06/28/20 10:51) Hospital Summary - Hospital Course Hospital Course: Chief Complaint Diagnosis anemia Allergies Allergy/AdvReac Type Severity Reaction Status Date / Time No Known Drug Allergies Allergy Verified 06/28/20 10:51 Vital Signs (Last 24 hours) Temp Pulse Resp BP Pulse Ox 07/01/20 07:55 78 18 94 L 07/01/20 07:23 99.4 F 74 18 133/63 96 07/01/20 04:00 98.2 F 67 18 145/65 96 06/30/20 23:39 98.2 F 73 19 114/53 97 06/30/20 20:10 70 20 98 06/30/20 19:14 98.4 F 71 20 118/59 96 06/30/20 16:00 98.9 F 74 18 123/59 95 06/30/20 11:31 98.6 F 73 20 117/58 94 L 06/30/20 08:29 82 24 95 Home Medications Medication Instructions Recorded Confirmed Last Taken Type Atorvastatin Calcium [Lipitor] 10 mg PO HS 06/28/20 06/28/20 06/27/20 History Clopidogrel Bisulfate 75 mg 75 mg PO DAILY 06/28/20 06/28/20 06/28/20 History [PLAVIX 75 MG Tablet] Gabapentin 200 mg PO HS 06/28/20 06/28/20 06/27/20 History Potassium Chloride [Klor-Con 10] 50 meq PO DAILY 06/28/20 06/28/20 06/28/20 History metOLazone [Metolazone] 5 mg PO Q48H 06/28/20 06/28/20 06/27/20 History Current Medications Generic Name Dose Route Start Last Admin Trade Name Freq PRN Reason Stop Dose Admin Albuterol Sulfate 2.5 mg 06/28/20 19:00 07/01/20 07:55 Proventil 2.5 Mg/3 Ml Neb IH 07/28/20 18:59 2.5 mg Q6H PRN PRN Administration SHORTNESS OF BREATH/WHEEZING Apixaban 2.5 mg 06/30/20 10:00 06/30/20 21:19 Eliquis 2.5 Mg Tablet PO 07/30/20 09:59 2.5 mg BID SIMBA Administration Bumetanide 2 mg 07/01/20 10:00 Bumex 1 Mg PO 07/31/20 09:59 BID DIURETIC SIMBA Famotidine 20 mg 06/30/20 22:00 06/30/20 21:22 Pepcid 20 Mg PO 07/30/20 21:59 20 mg BID SIMBA Administration Folic Acid 1 mg 06/29/20 10:00 06/30/20 09:22 Folate 1 Mg PO 07/29/20 09:59 1 mg DAILY SIMBA Administration Gabapentin 200 mg 06/28/20 22:00 06/30/20 21:20 Neurontin 100 Mg PO 07/28/20 21:59 200 mg HS SIMBA Administration Gabapentin 100 mg 06/29/20 10:00 06/30/20 09:22 Neurontin 100 Mg PO 07/29/20 09:59 100 mg DAILY SIMBA Administration Magnesium Oxide 400 mg 06/28/20 22:00 06/30/20 21:19 Mag-Ox 400 PO 07/28/20 21:59 400 mg BID SIMBA Administration Methylprednisolone 8 mg 06/29/20 10:00 06/30/20 09:22 Medrol 4 Mg PO 07/29/20 09:59 8 mg DAILY SIMBA Administration Metoprolol Tartrate 50 mg 06/29/20 10:00 06/29/20 12:16 Lopressor 50 Mg PO 07/29/20 09:59 50 mg DAILY SIMBA Administration Miscellaneous Information 0 each 06/28/20 14:45 Medication Intervention MC 07/28/20 14:44 .RN TO CHECK WITH PT SIMBA Pantoprazole Sodium 40 mg 07/01/20 10:00 Protonix 40mg Tablet PO 07/31/20 09:59 DAILY SIMBA Potassium Chloride 50 meq 06/29/20 10:00 06/30/20 09:21 Klor Con 10 Meq PO 07/29/20 09:59 50 meq DAILY SIMBA Administration Simvastatin 10 mg 06/28/20 22:00 09/11/20 21:19 Zocor 10mg PO 07/28/20 21:59 10 mg HS SIMBA Administration Sodium Chloride 10 ml 06/29/20 22:00 07/01/20 05:24 Sodium Chloride 0.9% 10 Ml Flush Syringe IV 07/29/20 21:59 10 ml Q8HT SIMBA Administration Discontinued Medications Generic Name Dose Route Start Last Admin Trade Name J Carlosq PRN Reason Stop Dose Admin Al Hydrox/Mg Hydrox/Simethicone 30 ml 06/28/20 17:58 06/28/20 17:58 Maalox Es 30 Ml Unit Dose PO 06/28/20 17:59 30 ml STAT ONE Administration Famotidine 40 mg 06/28/20 18:00 06/28/20 18:05 Pepcid 20 Mg Vial IV 07/28/20 17:59 Not Given Q12HT SIMBA Famotidine 20 mg 06/28/20 18:04 06/30/20 09:22 Pepcid 20 Mg Vial IV 07/28/20 17:59 20 mg Q12HT SIMBA Administration Furosemide 40 mg 06/28/20 10:59 06/28/20 11:19 Lasix 40 Mg/4 Ml IV 06/28/20 11:00 40 mg STAT ONE Administration Furosemide Confirm 06/28/20 11:18 Lasix 40 Mg/4 Ml Administered 06/28/20 11:19 Dose 40 mg .ROUTE .STK-MED ONE Furosemide 40 mg 06/28/20 17:00 06/28/20 17:02 Lasix 20 Mg/2 Ml IV 07/28/20 16:59 40 mg BID DIURETIC SIMBA Administration Furosemide 40 mg 06/29/20 10:00 06/30/20 09:22 Lasix 40 Mg/4 Ml IV 07/29/20 09:59 40 mg BID DIURETIC SIMBA Administration Sodium Chloride 1,000 mls @ 50 mls/hr 06/28/20 11:00 06/29/20 07:53 Sodium Chloride 0.9% 1000 Ml IV 07/28/20 10:59 Not Given .Q20H SIMBA Pantoprazole Sodium 80 mg/ 500 mls @ 50 mls/hr 06/28/20 18:15 06/30/20 09:35 Sodium Chloride IV 07/28/20 18:14 8 mg/hr .Q10H SIMBA 50 mls/hr Administration Sodium Chloride Confirm 06/28/20 18:04 Sodium Chloride 0.9% 500 Ml Administered 06/28/20 18:05 Dose 500 mls @ ud IV .STK-MED ONE Sodium Chloride Confirm 06/29/20 01:42 Sodium Chloride 0.9% 500 Ml Administered 06/29/20 01:43 Dose 500 mls @ ud IV .STK-MED ONE Sodium Chloride Confirm 06/29/20 03:28 Sodium Chloride 0.9% 500 Ml Administered 06/29/20 03:29 Dose 500 mls @ ud IV .STK-MED ONE Sodium Chloride Confirm 06/29/20 22:20 Sodium Chloride 0.9% 500 Ml Administered 06/29/20 22:21 Dose 500 mls @ ud IV .STK-MED ONE Pantoprazole Sodium Confirm 06/28/20 18:04 Protonix 40 Mg Iv Administered 06/28/20 18:05 Dose 80 mg IV .STK-MED ONE Pantoprazole Sodium Confirm 06/29/20 03:28 Protonix 40 Mg Iv Administered 06/29/20 03:29 Dose 80 mg IV .STK-MED ONE Intake & Output (Last 24 hours) 06/28/20 06/29/20 06/30/20 07/01/20 11:59 11:59 11:59 11:59 Intake Total 1862 3537 820 Output Total 200 3775 3200 1999 Balance -200 -4160 337 -1180 Weight 73 kg 78.1 kg 77.3 kg 81 kg Microbiology Results (Last 24 hours) 06/28/20 11:15 Blood Blood Culture Gram Stain - Pending 06/28/20 11:15 Blood Blood Culture - Preliminary NO GROWTH TO DATE 06/28/20 11:15 Blood Blood Culture Gram Stain - Pending 06/28/20 11:15 Blood Blood Culture - Preliminary NO GROWTH TO DATE Laboratory Results (Last 24 hours) 07/01/20 07/01/20 06/30/20 05:20 05:20 07:45 WBC 5.0 RBC 3.11 L Hgb 9.9 L Hct 31.9 L MCV 102.6 H MCH 31.8 MCHC 31.0 L RDW 18.1 H Plt Count 158 MPV 8.9 Sodium 135 L 137 Potassium 3.6 3.4 L Chloride 99 99 Carbon Dioxide 33 H 33 H Anion Gap 7.4 8.2 BUN 31 H 33 H Creatinine 1.69 H 1.62 H Estimated GFR 41.9 44.0 Glucose 168 H 150 H Calcium 8.0 L 8.3 L Reporting Documentation 06/28/20 12:15 WBC RBC Hgb Hct MCV MCH MCHC RDW Plt Count MPV Sodium Potassium Chloride Carbon Dioxide Anion Gap BUN Creatinine Estimated GFR Glucose Calcium Reporting Documentation See Result Note: Orders (Last 24 hours) Category Date Time Status BMP AM.LAB Lab 07/01/20 05:20 Completed BMP Routine Lab 06/30/20 07:45 Completed CBC AM.LAB Lab 07/01/20 05:20 Completed CBC Routine Lab 06/30/20 07:45 Completed Apixaban [Eliquis 2.5 mg Tablet] Med 06/30/20 10:00 Active 2.5 mg PO BID Bumetanide 1 mg [Bumex 1 mg] Med 07/01/20 10:00 Active 2 mg PO BID DIURETIC Famotidine 20 mg [Pepcid 20 MG] Med 06/30/20 22:00 Active 20 mg PO BID PANTOPRAZOLE 40 mg Tablet [Protonix 40MG Tablet] Med 07/01/20 10:00 Active 40 mg PO DAILY PT Eval & Treat ( Order) ROUTINE PT 06/30/20 09:34 Active Patient Care Notes (Last 24 hours) 06/30/20 15:45 Nursing Note by Anais Estevez Patient was Moved to room 113 MSOF 06/30/20@ 1018. Initialized on 06/30/20 15:45 - END OF NOTE 06/30/20 09:14 Case Management Note by Kate Royal S/W PATIENT THIS AM. HE CONTINUES TO PLAN TO RETURN HOME WITH HOME HEALTHCARE AT THIS TIME. STATES "THE ONLY PLACE IM GOING IS HOME". NOTE LEFT ON REPORT SHEETS FOR STAFF TO NOTIFY [facility] AT TIME OF DC. PATIENT ALREADY HAS HOME OXYGEN SET UP AT HOME Initialized on 06/30/20 09:14 - END OF NOTE - Vitals & Intake/Output Vital Signs: Vital Signs Temperature 99.4 F 07/01/20 07:23 Pulse Rate 78 07/01/20 07:55 Respiratory Rate 18 07/01/20 07:55 Blood Pressure 133/63 07/01/20 07:23 O2 Sat by Pulse Oximetry 94 L 07/01/20 07:55 Intake & Output: Intake & Output 06/28/20 06/29/20 06/30/20 07/01/20 11:59 11:59 11:59 11:59 Intake Total 7554 3477 820 Output Total 200 7935 3200 1999 Balance -200 -9226 337 -1180 Weight 73 kg 78.1 kg 77.3 kg 81 kg - Lab Result Diagrams: 07/01/20 05:20 07/01/20 05:20 Lab Results-Last 24 Hrs: Lab Results-Last 24 Hours 06/28/20 06/30/20 07/01/20 Range/Units 12:15 07:45 05:20 WBC 5.0 (4.0-10.5) K/mm3 RBC 3.11 L (4.1-5.6) M/mm3 Hgb 9.9 L (12.5-18.0) gm/dl Hct 31.9 L (42-50) % MCV 102.6 H (78-100) fl MCH 31.8 (26-32) pg MCHC 31.0 L (32-36) g/dl RDW 18.1 H (11.5-14.0) % Plt Count 158 (150-450) K/mm3 MPV 8.9 (7.5-11.0) fl Sodium 137 (137-145) mmol/L Potassium 3.4 L (3.5-5.1) mmol/L Chloride 99 (98-107) mmol/L Carbon Dioxide 33 H (22-30) mmol/L Anion Gap 8.2 (5-15) MEQ/L BUN 33 H (9-20) mg/dL Creatinine 1.62 H (0.66-1.25) mg/dL Estimated GFR 44.0 ML/MIN Glucose 150 H (74-106) mg/dL Calcium 8.3 L (8.4-10.2) mg/dL Reporting Documentation See Result Note: ABO Group (Off-Site) Pending Antibody ID 1 Off-Site Pending 07/01/20 Range/Units 05:20 WBC (4.0-10.5) K/mm3 RBC (4.1-5.6) M/mm3 Hgb (12.5-18.0) gm/dl Hct (42-50) % MCV (78-100) fl MCH (26-32) pg MCHC (32-36) g/dl RDW (11.5-14.0) % Plt Count (150-450) K/mm3 MPV (7.5-11.0) fl Sodium 135 L (137-145) mmol/L Potassium 3.6 (3.5-5.1) mmol/L Chloride 99 (98-107) mmol/L Carbon Dioxide 33 H (22-30) mmol/L Anion Gap 7.4 (5-15) MEQ/L BUN 31 H (9-20) mg/dL Creatinine 1.69 H (0.66-1.25) mg/dL Estimated GFR 41.9 ML/MIN Glucose 168 H (74-106) mg/dL Calcium 8.0 L (8.4-10.2) mg/dL Reporting Documentation ABO Group (Off-Site) Antibody ID 1 Off-Site Micro Results-Entire Visit: Microbiology 06/28/20 11:15 Blood Culture - Preliminary Blood NO GROWTH TO DATE 06/28/20 11:15 Blood Culture - Preliminary Blood NO GROWTH TO DATE - Procedures and Test Procedures and Tests throughout Hospitalization: Therapy Orders & Screens 06/28/20 12:44 Oxygen NASAL CANNULA 5 lpm Comment: Diagnosis: CHF 06/28/20 14:38 Respiratory Therapy Assessment DAILY Comment: Diagnosis: CHF, SEVERE ANEMIA 06/28/20 17:54 EKG ROUTINE Comment: Diagnosis: CHF, SEVERE ANEMIA 06/28/20 18:31 EKG STAT Comment: Diagnosis: CHF, SEVERE ANEMIA 06/30/20 09:34 PT Eval & Treat ( Order) ROUTINE Reason for Eval:: weakness Diagnosis: anemia Discharge Exam General Appearance: no apparent distress, alert Neurologic Exam: alert, oriented x 3, cooperative, normal mood/affect, nml cerebellar function, sensation nml, No motor deficits Eye Exam: PERRL, EOMI, eyes nml inspection Ears, Nose, Throat Exam: normal ENT inspection, pharynx normal, moist mucous membranes Neck Exam: normal inspection, non-tender, supple, full range of motion Respiratory Exam: normal breath sounds, lungs clear, No respiratory distress Cardiovascular Exam: normal heart sounds, irregular, edema Gastrointestinal/Abdomen Exam: soft, No tenderness, No mass Male Genitalia Exam: deferred Rectal Exam: deferred Back Exam: normal inspection, normal range of motion, No CVA tenderness, No vertebral tenderness Extremity Exam: normal inspection, normal range of motion Skin Exam: normal color, warm, dry Final Diagnosis/Problem List - Final Discharge Diagnosis/Problem (1) Angiodysplasia of duodenum with hemorrhage Current Visit: Yes Status: Resolved Code(s): K31.811 - ANGIODYSPLASIA OF STOMACH AND DUODENUM WITH BLEEDING (2) Anemia Current Visit: Yes Status: Chronic Priority: High Code(s): D64.9 - ANEMIA, UNSPECIFIED (3) Elevated troponin Current Visit: Yes Status: Resolved Code(s): R79.89 - OTHER SPECIFIED ABNORMAL FINDINGS OF BLOOD CHEMISTRY (4) Chronic renal disease, stage 4, severely decreased glomerular filtration rate (GFR) between 15-29 mL/min/1.73 square meter Current Visit: Yes Status: Chronic Code(s): N18.4 - CHRONIC KIDNEY DISEASE, STAGE 4 (SEVERE) (5) COPD (chronic obstructive pulmonary disease) Current Visit: Yes Status: Chronic Priority: Medium (6) HTN (hypertension), benign Current Visit: Yes Status: Chronic Priority: Medium Code(s): I10 - ESSENTIAL (PRIMARY) HYPERTENSION - Discharge Discharge Date: 07/01/20 Disposition: Home, Self-Care Condition: Stable Prescriptions: New Apixaban [Eliquis 2.5 mg Tablet] 2.5 mg PO BID tablet Albuterol 2.5 mg/3 ml Neb [Proventil 2.5 mg/3 ml Neb] 2.5 mg IH Q6H PRN PRN neb PRN Reason: Shortness Of Breath/Wheezing Continue Apixaban [Eliquis 2.5 mg Tablet] 2.5 mg PO BID #60 tablet No Action Folic Acid 1 mg PO DAILY Magnesium Oxide 400 mg [Mag-Ox 400] 400 mg PO BID Bumetanide [Bumex] 2 mg PO BID Metoprolol Tartrate 25 mg [Lopressor 25MG Tab] 50 mg PO DAILY Methylprednisolone 4 mg [Medrol 4 mg] 8 mg PO DAILY Gabapentin [Neurontin] 100 mg PO DAILY azaTHIOprine [Azathioprine] 75 mg PO DAILY Clopidogrel Bisulfate 75 mg [PLAVIX 75 MG Tablet] 75 mg PO DAILY metOLazone [Metolazone] 5 mg PO Q48H Atorvastatin Calcium [Lipitor] 10 mg PO HS Potassium Chloride [Klor-Con 10] 50 meq PO DAILY Gabapentin 200 mg PO HS Additional Instructions: Home health to follow, CBC Comp met panel in 1 week Follow up with: SADIA GROVER MD [Primary Care Provider] - 1 Week
[2020-07-01] MEDS: MEDROL 4 MG PO SCH (09:18)
[2020-07-01] MEDS: ELIQUIS 2.5 MG TABLET PO SCH (09:18)
[2020-07-01] MEDS: Pepcid 20 MG PO SCH (09:18)
[2020-07-01] MEDS: Klor Con 10 MEQ PO SCH (09:18)
[2020-07-01] MEDS: Neurontin 100 MG PO SCH (09:18)
[2020-07-01] MEDS: MAG-OX 400 PO SCH (09:19)
[2020-07-01] MEDS: Lopressor 50 MG PO SCH (09:19)
[2020-07-01] MEDS: FOLATE 1 MG PO SCH (09:19)
[2020-07-01] MEDS ORDERED: BUMEX 1 MG PO SCH (10:00)
[2020-07-01] MEDS ORDERED: Protonix 40MG Tablet PO SCH (10:00)
== END 2020-07-01 10:30 | disposition home or self-care (01) | DRG 378 ==
LOC: ED 10:49 → ICU 12:58 → INTOOBSV 12:58 → OBSVTOIN 12:58 → MED SURG 06-30 10:18 → OBSVTOIN 06-30 10:18 → INTOOBSV 06-30 10:18
PROVIDERS: ADMIT General Practice; ATTEND General Practice
DX: K31.811 Angiodysplasia of stomach and duodenum with bleeding (principal); N18.4 Chronic kidney disease, stage 4 (severe); R06.02 Shortness of breath; I12.9 Hypertensive chronic kidney disease with stage 1 through stage 4 chronic kidney disease, or unspecified chronic kidney disease; E78.00 Pure hypercholesterolemia, unspecified; J44.9 Chronic obstructive pulmonary disease, unspecified; D50.9 Iron deficiency anemia, unspecified; I48.91 Unspecified atrial fibrillation; I25.2 Old myocardial infarction; R79.89 Other specified abnormal findings of blood chemistry; Z79.899 Other long term (current) drug therapy; Z86.73 Personal history of transient ischemic attack (TIA), and cerebral infarction without residual deficits; Z99.81 Dependence on supplemental oxygen; Z79.01 Long term (current) use of anticoagulants; Z11.59 Encounter for screening for other viral diseases; Z86.79 Personal history of other diseases of the circulatory system; Z86.718 Personal history of other venous thrombosis and embolism
CPT/HCPCS: 36415; 36430; 51702; 71045; 80048; 80053; 81001; 83605; 83735; 83880; 84484; 85014; 85018; 85025; 85027; 85379; 85610; 85730; 86850; 86870; 86900; 86901; 86922; 87040; 87631; 93005; 93041; 94640; 94760; 96374; 97162; 99291; G0328; P9016; U0003; 36000; 82274; 99285; J1940; J7609; A9270-GY

== ENCOUNTER 2020-08-06 13:12 | Inpatient (IN) | payer MEDICARE ==
[2020-08-06] MEDS ORDERED: Lasix 40 MG/4 ML IV ONE (13:28)
[2020-08-06] MEDS ORDERED: Sodium Chloride 0.9% 1000 ML 1,000 ML IV SCH (13:30)
[2020-08-06 13:42] LABS: A-aADO2 149; ABG HEMOGLOBIN 9.3; ABG POTASSIUM 3.1 (3.5-5.1); ARTERIAL BLD GAS O2 SATURATION 98.7 % (95-100); ARTERIAL BLOOD GAS BASE EXCESS 19.3 (-2.0-2.0); ARTERIAL BLOOD GAS FIO2 44 %; ARTERIAL BLOOD GAS PCO2 51 mmHg (35-45); ARTERIAL BLOOD GAS PO2 101 mmHg (75-100); ARTERIAL BLOOD GAS pH 7.55 (7.35-7.45); CARBOXYHEMOGLOBIN 0.9 % THgb (0.0-6.9); HCO3- 44.6 (22-28); HGB O2 SAT 96.9 g/dF (94-100); Lactic Acid 1.6 (0.4-2.0); Methhemoglobin 0.9 % (1.4-1.5)
[2020-08-06 13:43] LABS: ABG SITE RIGHT RADIAL; ALLEN TEST OK? YES
[2020-08-06] MEDS ORDERED: Lasix 40 MG/4 ML ONE (13:43)
[2020-08-06] MEDS ORDERED: Sodium Chloride 0.9% 1000 ML 1,000 ML ONE (13:43)
[2020-08-06 13:44] LABS: Absolute Neutrophil Ct (ANC) 3.79 (1.4-6.9); BASOPHIL % 0.5 % (0.0-0.4); Basophil (Absolute #) 0.02 (0-0.4); Eosinophil % 0.2 % (0.00-5.0); Eosinophil (Absolute #) 0.01 (0-0.5); Hematocrit 28.2 % (42-50); Hemoglobin 8.8 gm/dl (12.5-18.0); Lymphocyte (Absolute #) 0.17 (1.0-4.6); Lymphocytes % 3.9 % (24.0-44.0); Mean Cell Volume 100.7 fl (78-100); Mean Corpuscular Hemoglobin 31.4 pg (26-32); Mean Corpuscular Hgb Concent. 31.2 g/dl (32-36); Mean Platelet Volume 9.8 fl (7.5-11.0); Monocyte (Absolute #) 0.38 (0.0-1.3); Monocytes % 8.7 % (0.0-12.0); Neutrophil % 86.7 % (36.0-66.0); Platelet Count 130 K/mm3 (150-450); Red Cell Distribution Width 17.5 % (11.5-14.0); White Blood Count 4.4 K/mm3 (4.0-10.5)
[2020-08-06] MEDS ORDERED: TYLENOL EXTRA STRENGTH 500 MG PO STA (13:52)
[2020-08-06] MEDS ORDERED: TYLENOL EXTRA STRENGTH 500 MG ONE (13:52)
[2020-08-06 13:56] LABS: ALBUMIN 3.1 g/dL (3.5-5.0); BILIRUBIN,TOTAL 0.5 mg/dL (0.2-1.3); Calcium 8.6 mg/dL (8.4-10.2); Creatinine 1 1.76 mg/dL (0.66-1.25); Potassium 3.2 mmol/L (3.5-5.1); Total Protein 6.3 g/dL (6.3-8.2)
--- NOTE | 2020-08-06 14:12 | ERPHSYRPT ---
- History of Present Illness Time Seen by Provider: 08/06/20 14:12 Source: patient, family, EMS Exam Limitations: clinical condition Patient Subjective Stated Complaint: pt reports shortness of breath and fever. pt states he has back pain upon movement as well. Triage Nursing Assessment: pt is aox3, pupils perrl, pt is febrile, pt is short of breath, pt lung sounds are diminished, pt is able to answer yes-no questions, and speak 2-3 words at a time. pt heart tones irregular, radial pulses strong, equal, cap refill < 3 seconds, pt abdomen distended, soft, bowel sounds present, normoactive x4, pt skin is hot to touch. Physician History: pt reports shortness of breath and fever. pt states he has back pain upon move ment as well. Allergies/Adverse Reactions: No Known Drug Allergies Allergy (Verified 08/06/20 13:40) Home Medications: Folic Acid 1 mg PO DAILY 01/28/15 [History] Magnesium Oxide 400 mg [Mag-Ox 400] 400 mg PO BID 04/03/15 [History] Metoprolol Tartrate 25 mg [Lopressor 25MG Tab] 50 mg PO DAILY 02/03/17 [History] Methylprednisolone 4 mg [Medrol 4 mg] 8 mg PO DAILY 11/10/18 [History] Gabapentin [Neurontin] 100 mg PO DAILY 04/24/20 [History] azaTHIOprine [Azathioprine] 75 mg PO DAILY 04/24/20 [History] Atorvastatin Calcium [Lipitor] 10 mg PO HS 06/28/20 [History] Gabapentin 200 mg PO HS 06/28/20 [History] Potassium Chloride [Klor-Con 10] 50 meq PO DAILY 06/28/20 [History] metOLazone [Metolazone] 5 mg PO Q48H 06/28/20 [History] Cephalexin Mh 500 mg [Keflex 500 mg] 500 mg PO QID 08/06/20 [History] Hx Tetanus, Diphtheria Vaccination/Date Given: Yes Hx Influenza Vaccination/Date Given: Yes Hx Pneumococcal Vaccination/Date Given: Yes Immunizations Up to Date: Yes Travel Risk - International Travel Have you traveled outside of the country in past 3 weeks: No - Coronavirus Screening Are you exhibiting any of the following symptoms?: Yes Symptoms: Shortness of Breath Close contact with a COVID-19 positive Pt in past 14-21 Days: No - Review of Systems Constitutional: Fever, Fatigue, Weakness, No Chills Eyes: No Symptoms Ears, Nose, & Throat: No Symptoms Respiratory: Cough, Dyspnea on Exertion (GARCIA), Wheezing, No Dyspnea Cardiac: No Chest Pain, No Edema, No Syncope Abdominal/Gastrointestinal: No Abdominal Pain, No Nausea, No Vomiting, No Diarrhea Genitourinary Symptoms: No Dysuria Musculoskeletal: No Back Pain, No Neck Pain Skin: No Rash Neurological: No Dizziness, No Focal Weakness, No Sensory Changes Psychological: No Symptoms Endocrine: No Symptoms All Other Systems: Reviewed and Negative - Past Medical History Pertinent Past Medical History: Yes Neurological History: TIA ENT History: Cataracts Cardiac History: Congestive Heart Failure, Coronary Artery Disease, High Cholesterol, Hypertension, Myocardial Infarction ([place]) Respiratory History: CHF, COPD, Lung Cancer, Pneumonia Endocrine Medical History: No Pertinent History Musculoskeletal History: No Pertinent History GI Medical History: GI Bleed, Other History: Other Psycho-Social History: No Pertinent History Male Reproductive Disorders: No Pertinent History Other Medical History: some kidney failure, anemia with blood transfusion, Lung cancer left upper lobe - Past Surgical History Past Surgical History: Yes Neuro Surgical History: No Pertinent History Cardiac: Cardiac Catheterization, Cardiac Stent Respiratory: No Pertinent History Gastrointestinal: Appendectomy, Hernia Repair Genitourinary: No Pertinent History Musculoskeletal: Orthopedic Surgery Male Surgical History: No Pertinent History Other Surgical History: EGD AND COLONOSCOPY LAST DONE APRIL 2016 Received many blood transfusions during that time. 2019 kyphoplasty t8-t9, cardiac stent x 2. 2019-lumbar back surgery - Social History Smoking Status: Former smoker How long have you smoked: 50 yrs Exposure to second hand smoke: No Drug Use: none Patient Lives Alone: No - Nursing Vital Signs Nursing Vital Signs: Initial Vital Signs Temperature 101.9 F 08/06/20 13:21 Pulse Rate 54 L 08/06/20 13:21 Respiratory Rate 26 H 08/06/20 13:21 Blood Pressure 128/80 08/06/20 13:21 O2 Sat by Pulse Oximetry 94 L 08/06/20 13:21 Pain Scale Pain Intensity 4 - Physical Exam General Appearance: moderate distress, alert Eye Exam: PERRL/EOMI Neck Exam: normal inspection, supple Respiratory Exam: diminished breath sounds, crackles/rales, rhonchi, wheezing Cardiovascular/Chest Exam: irregular, gallop/S3 Abdominal/Gastrointestinal Exam: soft, normal bowel sounds, distention, No tenderness, No mass, No rebound Extremity Exam: non-tender, normal range of motion, normal inspection, no calf tenderness, no pedal edema Neurologic Exam: alert, oriented x 3, cooperative, 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 as tested, sensation nml, No motor deficits Skin Exam: normal color, warm, No dry SpO2 Interpretation: borderline oxygenation SpO2: 94 O2 Delivery: Nasal Cannula - Course Nursing assessment & vital signs reviewed: Yes EKG Interpreted by Me: Non-specific ST Changes - Radiology Exams Chest X-ray Interpretation: Reviewed by me (left lower lobe infiltrate, CHF changes) Ordered Tests: Active Orders 24 hr Category Date Time Status Stem Frazer STAT Care 08/06/20 13:29 Active EKG-ER Only STAT Care 08/06/20 13:28 Active IV Insertion STAT Care 08/06/20 13:28 Active IV Insertion-2nd Peripheral STAT Care 08/06/20 13:36 Active Oxygen-ED Only Nasal Cannula 5 lpm Care 08/06/20 13:28 Active POCT Glucose Check STAT Care 08/06/20 13:28 Active Pulse Oximetry (ED) STAT Care 08/06/20 13:28 Active CHEST 1 VIEW (PORTABLE) Stat Exams 08/06/20 13:46 Taken ARTERIAL BLOOD GASES Stat Lab 08/06/20 13:28 Completed BLOOD CULTURE Stat Lab 08/06/20 12:35 Received CBC W DIFF Stat Lab 08/06/20 13:30 Completed CMP Stat Lab 08/06/20 13:30 Completed Lactic Acid Stat Lab 08/06/20 13:28 Completed POCT GLUCOSE Stat Lab 08/06/20 13:40 Completed TROPONIN Q3H Lab 08/06/20 04:20 Received TROPONIN Q3H Lab 08/06/20 13:30 Completed TROPONIN Q3H Lab 08/06/20 19:30 Ordered TROPONIN Q3H Lab 08/06/20 22:30 Ordered UA W/RFX UR CULTURE Stat Lab 08/06/20 14:38 Completed Transfer Order Routine Transfer 08/06/20 Ordered Medication Summary Generic Name Dose Route Start Last Admin Trade Name Freq PRN Reason Stop Dose Admin Sodium Chloride 1,000 mls @ 50 mls/hr 08/06/20 13:30 08/06/20 13:46 Sodium Chloride 0.9% 1000 Ml IV 09/05/20 13:29 50 mls/hr .Q20H SIMBA Administration Discontinued Medications Generic Name Dose Route Start Last Admin Trade Name Radha PRN Reason Stop Dose Admin Acetaminophen 500 mg 08/06/20 13:52 08/06/20 13:55 Tylenol Extra Strength 500 Mg PO 08/06/20 13:53 500 mg STAT STA Administration Acetaminophen Confirm 08/06/20 13:52 Tylenol Extra Strength 500 Mg Administered 08/06/20 13:53 Dose 500 mg .ROUTE .STK-MED ONE Furosemide 40 mg 08/06/20 13:28 08/06/20 13:46 Lasix 40 Mg/4 Ml IV 08/06/20 13:29 40 mg STAT ONE Administration Furosemide Confirm 08/06/20 13:43 Lasix 40 Mg/4 Ml Administered 08/06/20 13:44 Dose 40 mg .ROUTE .STK-MED ONE Ceftriaxone Sodium 500 mg/ 100 mls @ 100 mls/hr 08/06/20 14:23 08/06/20 15:35 Sodium Chloride IV 08/06/20 15:22 Not Given STAT ONE Azithromycin 500 mg in 250 mls @ 250 mls/hr 08/06/20 14:23 08/06/20 16:08 Zithromax 500 Mg/ 250 Ml Nacl Premix IV 08/06/20 15:22 250 mls/hr STAT STA 250 mls/hr Administration Ceftriaxone Sodium/Dextrose 1 g in 50 mls @ 100 mls/hr 08/06/20 15:36 16:14 Rocephin 1 Gm-D5w 50 Ml Bag IV 08/06/20 16:05 Infused STAT STA Infusion Ceftriaxone Sodium/Dextrose Confirm 08/06/20 15:34 Rocephin 1 Gm-D5w 50 Ml Bag Administered 08/06/20 15:35 Dose 1 g in 50 mls @ ud IV .STK-MED ONE Azithromycin Confirm 08/06/20 16:07 Zithromax 500 Mg/ 250 Ml Nacl Premix Administered 08/06/20 16:08 Dose 500 mg in 250 mls @ ud IV .STK-MED ONE Lab/Rad Data: Laboratory Result Diagrams 08/06/20 13:30 08/06/20 13:30 Laboratory Results 08/06/20 08/06/20 08/06/20 Range/Units 14:43 14:38 13:40 WBC (4.0-10.5) K/mm3 RBC (4.1-5.6) M/mm3 Hgb (12.5-18.0) gm/dl Hct (42-50) % MCV (78-100) fl MCH (26-32) pg MCHC (32-36) g/dl RDW (11.5-14.0) % Plt Count (150-450) K/mm3 MPV (7.5-11.0) fl Gran % (36.0-66.0) % Eos # (Auto) (0-0.5) Absolute Lymphs (auto) (1.0-4.6) Absolute Monos (auto) (0.0-1.3) Lymphocytes % (24.0-44.0) % Monocytes % (0.0-12.0) % Eosinophils % (0.00-5.0) % Basophils % (0.0-0.4) % Absolute Granulocytes (1.4-6.9) Basophils # (0-0.4) Puncture Site pCO2 (35-45) mmHg pO2 (75-100) mmHg Base Excess (-2.0-2.0) O2 Saturation (94-100) g/dF ABG pH (7.35-7.45) ABG HCO3 (22-28) ABG O2 Sat (Measured) (95-100) % Sunday Test A-a Gradient a/A Ratio Hemoglobin Carboxyhemoglobin (0.0-6.9) % THgb Methemoglobin (1.4-1.5) % Potassium (3.5-5.1) Temperature C POC O2 Flow Rate % Sodium (137-145) mmol/L Chloride (98-107) mmol/L Carbon Dioxide (22-30) mmol/L Anion Gap (5-15) MEQ/L BUN (9-20) mg/dL Creatinine (0.66-1.25) mg/dL Estimated GFR ML/MIN Glucose (74-106) mg/dL POC Glucometer 102 (74 to 106) mg/dL Lactic Acid (0.4-2.0) Calcium (8.4-10.2) mg/dL Total Bilirubin (0.2-1.3) mg/dL AST (17-59) U/L ALT (0-50) U/L Alkaline Phosphatase (38-126) U/L Troponin I (0.000-0.034) ng/mL Serum Total Protein (6.3-8.2) g/dL Albumin (3.5-5.0) g/dL Urine Color YELLOW (YELLOW) Urine Appearance CLEAR (CLEAR) Urine pH 7.0 (5-6) Ur Specific [place] 1.010 (1.005-1.025) Urine Protein NEGATIVE (Negative) Urine Ketones NEGATIVE (NEGATIVE) Urine Blood NEGATIVE (0-5) Marcelino/ul Urine Nitrite NEGATIVE (NEGATIVE) Urine Bilirubin NEGATIVE (NEGATIVE) Urine Urobilinogen NEGATIVE (0-1) mg/dL Ur Leukocyte Esterase NEGATIVE (NEGATIVE) Urine WBC (Auto) NONE (0-5) /HPF Urine RBC (Auto) 0-2 (0-2) /HPF U Epithel Cells (Auto) NONE (FEW) /HPF Urine Bacteria (Auto) RARE (NEGATIVE) /HPF Urine Culture Reflexed NO (NO) Urine Glucose NEGATIVE (NEGATIVE) mg/dL SARS-CoV-2 (PCR) NEGATIVE (NEGATIVE) Slides for Path Review 08/06/20 08/06/20 08/06/20 Range/Units 13:30 13:30 13:30 WBC 4.4 (4.0-10.5) K/mm3 RBC 2.80 L (4.1-5.6) M/mm3 Hgb 8.8 L (12.5-18.0) gm/dl Hct 28.2 L (42-50) % MCV 100.7 H (78-100) fl MCH 31.4 (26-32) pg MCHC 31.2 L (32-36) g/dl RDW 17.5 H (11.5-14.0) % Plt Count 130 L (150-450) K/mm3 MPV 9.8 (7.5-11.0) fl Gran % 86.7 H (36.0-66.0) % Eos # (Auto) 0.01 (0-0.5) Absolute Lymphs (auto) 0.17 L (1.0-4.6) Absolute Monos (auto) 0.38 (0.0-1.3) Lymphocytes % 3.9 L (24.0-44.0) % Monocytes % 8.7 (0.0-12.0) % Eosinophils % 0.2 (0.00-5.0) % Basophils % 0.5 (0.0-0.4) % Absolute Granulocytes 3.79 (1.4-6.9) Basophils # 0.02 (0-0.4) Puncture Site pCO2 (35-45) mmHg pO2 (75-100) mmHg Base Excess (-2.0-2.0) O2 Saturation (94-100) g/dF ABG pH (7.35-7.45) ABG HCO3 (22-28) ABG O2 Sat (Measured) (95-100) % Sunday Test A-a Gradient a/A Ratio Hemoglobin Carboxyhemoglobin (0.0-6.9) % THgb Methemoglobin (1.4-1.5) % Potassium 3.2 L (3.5-5.1) Temperature C POC O2 Flow Rate % Sodium 138 (137-145) mmol/L Chloride 92 L (98-107) mmol/L Carbon Dioxide 39 H (22-30) mmol/L Anion Gap 10.2 (5-15) MEQ/L BUN 45 H (9-20) mg/dL Creatinine 1.76 H (0.66-1.25) mg/dL Estimated GFR 40.0 ML/MIN Glucose 121 H (74-106) mg/dL POC Glucometer (74 to 106) mg/dL Lactic Acid (0.4-2.0) Calcium 8.6 (8.4-10.2) mg/dL Total Bilirubin 0.50 (0.2-1.3) mg/dL AST 20 (17-59) U/L ALT 16 (0-50) U/L Alkaline Phosphatase 104 (38-126) U/L Troponin I 0.040 H* (0.000-0.034) ng/mL Serum Total Protein 6.3 (6.3-8.2) g/dL Albumin 3.1 L (3.5-5.0) g/dL Urine Color (YELLOW) Urine Appearance (CLEAR) Urine pH (5-6) Ur Specific [place] (1.005-1.025) Urine Protein (Negative) Urine Ketones (NEGATIVE) Urine Blood (0-5) Marcelino/ul Urine Nitrite (NEGATIVE) Urine Bilirubin (NEGATIVE) Urine Urobilinogen (0-1) mg/dL Ur Leukocyte Esterase (NEGATIVE) Urine WBC (Auto) (0-5) /HPF Urine RBC (Auto) (0-2) /HPF U Epithel Cells (Auto) (FEW) /HPF Urine Bacteria (Auto) (NEGATIVE) /HPF Urine Culture Reflexed (NO) Urine Glucose (NEGATIVE) mg/dL SARS-CoV-2 (PCR) (NEGATIVE) Slides for Path Review YES 08/06/20 Range/Units 13:28 WBC (4.0-10.5) K/mm3 RBC (4.1-5.6) M/mm3 Hgb (12.5-18.0) gm/dl Hct (42-50) % MCV (78-100) fl MCH (26-32) pg MCHC (32-36) g/dl RDW (11.5-14.0) % Plt Count (150-450) K/mm3 MPV (7.5-11.0) fl Gran % (36.0-66.0) % Eos # (Auto) (0-0.5) Absolute Lymphs (auto) (1.0-4.6) Absolute Monos (auto) (0.0-1.3) Lymphocytes % (24.0-44.0) % Monocytes % (0.0-12.0) % Eosinophils % (0.00-5.0) % Basophils % (0.0-0.4) % Absolute Granulocytes (1.4-6.9) Basophils # (0-0.4) Puncture Site RIGHT RADIAL pCO2 51 H (35-45) mmHg pO2 101 H (75-100) mmHg Base Excess 19.3 H (-2.0-2.0) O2 Saturation 96.9 (94-100) g/dF ABG pH 7.55 H* (7.35-7.45) ABG HCO3 44.6 H* (22-28) ABG O2 Sat (Measured) 98.7 (95-100) % Sunday Test YES A-a Gradient 149 a/A Ratio 0.40 Hemoglobin 9.3 Carboxyhemoglobin 0.9 (0.0-6.9) % THgb Methemoglobin 0.9 L (1.4-1.5) % Potassium 3.1 L (3.5-5.1) Temperature 37.0 C POC O2 Flow Rate 44 % Sodium (137-145) mmol/L Chloride (98-107) mmol/L Carbon Dioxide (22-30) mmol/L Anion Gap (5-15) MEQ/L BUN (9-20) mg/dL Creatinine (0.66-1.25) mg/dL Estimated GFR ML/MIN Glucose (74-106) mg/dL POC Glucometer (74 to 106) mg/dL Lactic Acid 1.6 (0.4-2.0) Calcium (8.4-10.2) mg/dL Total Bilirubin (0.2-1.3) mg/dL AST (17-59) U/L ALT (0-50) U/L Alkaline Phosphatase (38-126) U/L Troponin I (0.000-0.034) ng/mL Serum Total Protein (6.3-8.2) g/dL Albumin (3.5-5.0) g/dL Urine Color (YELLOW) Urine Appearance (CLEAR) Urine pH (5-6) Ur Specific [place] (1.005-1.025) Urine Protein (Negative) Urine Ketones (NEGATIVE) Urine Blood (0-5) Marcelino/ul Urine Nitrite (NEGATIVE) Urine Bilirubin (NEGATIVE) Urine Urobilinogen (0-1) mg/dL Ur Leukocyte Esterase (NEGATIVE) Urine WBC (Auto) (0-5) /HPF Urine RBC (Auto) (0-2) /HPF U Epithel Cells (Auto) (FEW) /HPF Urine Bacteria (Auto) (NEGATIVE) /HPF Urine Culture Reflexed (NO) Urine Glucose (NEGATIVE) mg/dL SARS-CoV-2 (PCR) (NEGATIVE) Slides for Path Review - Progress Progress: improved, unchanged Air Movement: fair Blood Culture(s) Obtained: Yes Antibiotics given: Yes Discussed with : Marsha Anaya Will see patient in: hospital (full admit) Counseled pt/family regarding: lab results, diagnosis, need for follow-up, rad results - Departure Departure Disposition: In-patient Admission Clinical Impression: COPD exacerbation CHF (congestive heart failure), NYHA class III Qualifiers: Congestive heart failure type: combined Congestive heart failure chronicity: acute on chronic Qualified Code(s): I50.43 - Acute on chronic combined systolic (congestive) and diastolic (congestive) heart failure Pneumonia Qualifiers: Pneumonia type: due to other aerobic Gram-negative bacteria Laterality: left Lung location: lower lobe of lung Qualified Code(s): J15.6 - Pneumonia due to other Gram-negative bacteria Condition: Fair Critical Care Time: Yes Critical Care Time(excluding separately billable procedures): Critical 30-74 mins Referrals: SADIA GROVER MD [Emergency Provider] - Instructions: Heart Failure, Chronic Obstructive Pulmonary Disease
[2020-08-06 14:13] LABS: ANION GAP 10.2 MEQ/L (5-15)
[2020-08-06] MEDS ORDERED: Zithromax 500 MG/ 250 ML NaCl Premix 500 MG/250 ML IVPB IV STA (14:23)
[2020-08-06] MEDS ORDERED: Rocephin 500 MG INJ** 500 MG in Sodium Chloride 0.9% 100 ML IVPB 100 ML IV ONE (14:23)
[2020-08-06 14:51] LABS: Appearance CLEAR (CLEAR); Bacteria RARE /HPF (NEGATIVE); Bilirubin NEGATIVE (NEGATIVE); Blood NEGATIVE Ery/ul (0-5); Glucose NEGATIVE (NEGATIVE); Ketones NEGATIVE (NEGATIVE); Leukocyte Esterase NEGATIVE (NEGATIVE); Nitrite NEGATIVE (NEGATIVE); Protein,Urine Dip NEGATIVE (Negative); RBC 0-2 /HPF (0-2); Urobilinogen NEGATIVE mg/dL (0-1)
[2020-08-06 14:57] LABS: Slide Review 1 YES
[2020-08-06] MEDS ORDERED: ROCEPHIN 1 Gm-D5w 50 ml Bag** 1 G/50 ML IVPB IV ONE (15:34)
[2020-08-06] MEDS ORDERED: ROCEPHIN 1 Gm-D5w 50 ml Bag** 1 G/50 ML IVPB IV STA (15:36)
[2020-08-06] MEDS ORDERED: Zithromax 500 MG/ 250 ML NaCl Premix 500 MG/250 ML IVPB IV ONE (16:07)
[2020-08-06] MEDS ORDERED: HUMALOG SQ PRN (17:12)
[2020-08-06] MEDS ORDERED: DUONEB 0.5-3 MG/3 ml Neb IH ONE (17:35)
[2020-08-06] MEDS ORDERED: FLUZONE HIGH-DOSE QUAD 2020-21 IM ONE (17:40)
[2020-08-06] MEDS: DUONEB 0.5-3 MG/3 ml Neb IH SCH ×2 (17:40→21:12)
[2020-08-06] MEDS: solu-MEDROL 125 MG IV SCH (18:24)
[2020-08-06] MEDS: Lasix 40 MG/4 ML IV SCH (18:25)
[2020-08-06] MEDS: SUBLIMAZE 100 MCG/2 ML IV PRN (18:29)
[2020-08-06] MEDS ORDERED: Zofran 4 MG/2 ML VIAL IV PRN (19:42)
[2020-08-06] MEDS ORDERED: Zofran 4 MG/2 ML VIAL ONE (19:44)
[2020-08-06] MEDS ORDERED: TYLENOL 325 MG ONE (19:52)
[2020-08-06] MEDS: TYLENOL 325 MG PO PRN (19:54)
--- NOTE | 2020-08-06 20:38 | XRAY ---
Indication: Fever and cough. Comparison: June 29, 2020. Portable chest demonstrates new left lower lung opacity, infiltrate versus atelectasis. Remaining chest unchanged again demonstrating pulmonary emphysema, chronic interstitial lung markings, calcified granulomas, and left hemithorax calcified pleural plaquing. Heart is borderline enlarged.
[2020-08-06] MEDS: Neurontin 100 MG PO SCH (21:36)
[2020-08-06] MEDS: MAG-OX 400 PO SCH (21:36)
[2020-08-06] MEDS: Zocor 10MG PO SCH (21:36)
[2020-08-06] MEDS ORDERED: Pepcid 20 MG VIAL IV SCH (22:00)
[2020-08-06] MEDS ORDERED: ELIQUIS 2.5 MG TABLET PO ONE (22:00)
[2020-08-07] MEDS: solu-MEDROL 125 MG IV SCH ×4 (00:01→17:17)
[2020-08-07] MEDS: DUONEB 0.5-3 MG/3 ml Neb IH SCH ×6 (05:59→23:15)
[2020-08-07 06:26] LABS: Hematocrit 28.2 % (42-50); Hemoglobin 8.7 gm/dl (12.5-18.0); Mean Cell Volume 101.4 fl (78-100); Mean Corpuscular Hemoglobin 31.3 pg (26-32); Mean Corpuscular Hgb Concent. 30.9 g/dl (32-36); Mean Platelet Volume 10.7 fl (7.5-11.0); Platelet Count 123 K/mm3 (150-450); Red Blood Count 2.78 M/mm3 (4.1-5.6); Red Cell Distribution Width 17.4 % (11.5-14.0); White Blood Count 6.2 K/mm3 (4.0-10.5)
[2020-08-07 06:41] LABS: ALBUMIN 3.3 g/dL (3.5-5.0); ALKALINE PHOSPHATASE 102 U/L (38-126); BLOOD UREA NITROGEN 44 mg/dL (9-20); CHLORIDE 90 mmol/L (98-107); Calcium 8.4 mg/dL (8.4-10.2); Creatinine 1 1.65 mg/dL (0.66-1.25); EST GLOMERULAR FILTRATION RATE 43.1 ML/MIN; Glucose 210 mg/dL (74-106); MAGNESIUM 1.9 mg/dL (1.6-2.3); NT PRO BNP 4330 pg/mL (0-1800); Potassium 3.3 mmol/L (3.5-5.1); SGOT/AST 27 U/L (17-59); SGPT/ALT 18 U/L (0-50); SODIUM 136 mmol/L (137-145); Total Protein 6.5 g/dL (6.3-8.2)
[2020-08-07 06:58] LABS: Carbon Dioxide > 40 mmol/L (22-30)
[2020-08-07] MEDS ORDERED: PROVENTIL 2.5 MG/3 ML NEB IH PRN (07:27)
[2020-08-07] MEDS ORDERED: MEDICATION INTERVENTION MC SCH (07:45)
--- NOTE | 2020-08-07 09:04 | XRAY ---
Indication: Pneumonia. Comparison: One day earlier. Portable chest demonstrates grossly stable left lower lung infiltrate/atelectasis, chronic lung markings, calcified granulomas, left hemithorax calcified pleural plaquing, and borderline cardiomegaly. No new cardiopulmonary abnormalities.
[2020-08-07] MEDS ORDERED: Lopressor 25MG Tab PO SCH (10:00)
[2020-08-07] MEDS ORDERED: ENOXAPARIN SODIUM SQ SCH (10:00)
[2020-08-07] MEDS ORDERED: AZATHIOPRINE 75 MG PO SCH (10:00)
[2020-08-07] MEDS ORDERED: FLUZONE HIGH-DOSE QUAD 2020-21 IM ONE (10:00)
[2020-08-07] MEDS: ROCEPHIN 1 Gm-D5w 50 ml Bag** 1 G/50 ML IVPB IV SCH (10:12)
[2020-08-07] MEDS: Lasix 40 MG/4 ML IV SCH ×2 (10:15→17:19)
[2020-08-07] MEDS: MAG-OX 400 PO SCH ×2 (10:19→21:04)
[2020-08-07] MEDS: Neurontin 100 MG PO SCH ×2 (10:19→21:04)
[2020-08-07] MEDS: FOLATE 1 MG PO SCH (10:19)
[2020-08-07] MEDS: Protonix 40MG Tablet PO SCH (10:19)
[2020-08-07] MEDS: Lopressor 50 MG PO SCH (10:20)
[2020-08-07] MEDS: ELIQUIS 2.5 MG TABLET PO SCH ×2 (10:20→21:04)
[2020-08-07] MEDS: Klor Con 10 MEQ PO SCH (10:20)
[2020-08-07] MEDS: Pepcid 20 MG PO SCH ×2 (10:20→21:04)
[2020-08-07] MEDS: TYLENOL 325 MG PO PRN ×2 (10:29→21:05)
[2020-08-07] MEDS: Sodium Chloride 0.9% 1000 ML 1,000 ML IV SCH (10:30)
[2020-08-07] MEDS: Zithromax 500 MG/ 250 ML NaCl Premix 500 MG/250 ML IVPB IV SCH (10:54)
[2020-08-07] MEDS: HUMULIN R SQ PRN ×2 (12:42→21:09)
[2020-08-07] MEDS: Zocor 10MG PO SCH (21:04)
[2020-08-07] MEDS ORDERED: ELIQUIS 2.5 MG TABLET PO ONE (22:00)
[2020-08-08] MEDS: solu-MEDROL 125 MG IV SCH ×4 (00:02→17:51)
[2020-08-08] MEDS ORDERED: Cardizem IV 50 MG/10 ML IV ONE (00:22)
[2020-08-08] MEDS ORDERED: Cardizem CD 120 MG ONE (00:23)
[2020-08-08] MEDS ORDERED: Cardizem CD 120 MG PO ONE (00:24)
[2020-08-08] MEDS: DUONEB 0.5-3 MG/3 ml Neb IH SCH ×6 (03:20→23:37)
[2020-08-08] MEDS: Cardizem CD 120 MG PO SCH (08:17)
[2020-08-08] MEDS: Lopressor 50 MG PO SCH ×2 (08:17→22:05)
[2020-08-08] MEDS: CARDIZEM DRIP 100 MG/100 ML D5W 100 ML IV PRN ×2 (08:48→22:43)
[2020-08-08] MEDS: Sodium Chloride 0.9% 1000 ML 1,000 ML IV SCH ×2 (09:51→13:38)
[2020-08-08] MEDS: Lasix 40 MG/4 ML IV SCH ×2 (09:56→17:18)
[2020-08-08] MEDS: ROCEPHIN 1 Gm-D5w 50 ml Bag** 1 G/50 ML IVPB IV SCH (10:00)
[2020-08-08] MEDS: Pepcid 20 MG PO SCH ×2 (10:13→22:04)
[2020-08-08] MEDS: Klor Con 10 MEQ PO SCH (10:14)
[2020-08-08] MEDS: MAG-OX 400 PO SCH ×2 (10:14→22:05)
[2020-08-08] MEDS: Neurontin 100 MG PO SCH ×2 (10:15→22:05)
[2020-08-08] MEDS: ELIQUIS 2.5 MG TABLET PO SCH ×2 (10:15→22:04)
[2020-08-08] MEDS: Protonix 40MG Tablet PO SCH (10:16)
[2020-08-08] MEDS: FOLATE 1 MG PO SCH (10:16)
--- NOTE | 2020-08-08 10:54 | PCM.HP ---
History of Present Illness - Chief Complaint Chief Complaint: c/o shortness of breath and fever for 2 days History of Present Illness: is a 79 year old male.reports shortness of breath and fever. pt states he has back pain upon movement as well. - Review of Systems Constitutional: Fever, Chills Eyes: No Symptoms Ears, Nose, & Throat: No Symptoms Respiratory: Cough, Orthopnea, Short Of Breath, Wheezing Cardiac: Edema, Palpitations, No Chest Pain, No Syncope Abdominal/Gastrointestinal: No Abdominal Pain, No Nausea, No Vomiting, No Diarrhea Genitourinary Symptoms: No Dysuria Musculoskeletal: Back Pain, No Neck Pain Skin: No Rash Neurological: No Dizziness, No Focal Weakness, No Sensory Changes Psychological: No Symptoms Endocrine: No Symptoms Hematologic/Lymphatic: No Symptoms Immunological/Allergic: No Symptoms Medications & Allergies Home Medications: Home Medication List Folic Acid 1 mg PO DAILY 01/28/15 [History Confirmed 08/06/20] Magnesium Oxide 400 mg [Mag-Ox 400] 400 mg PO BID 04/03/15 [History Confirmed 08/06/20] Metoprolol Tartrate 25 mg [Lopressor 25MG Tab] 50 mg PO DAILY 02/03/17 [History Confirmed 08/06/20] Methylprednisolone 4 mg [Medrol 4 mg] 8 mg PO DAILY 11/10/18 [History Confirmed 08/06/20] Gabapentin [Neurontin] 100 mg PO DAILY 04/24/20 [History Confirmed 08/06/20] azaTHIOprine [Azathioprine] 75 mg PO DAILY 04/24/20 [History Confirmed 08/06/20] Atorvastatin Calcium [Lipitor] 10 mg PO HS 06/28/20 [History Confirmed 08/06/20] Gabapentin 200 mg PO HS 06/28/20 [History Confirmed 08/06/20] Potassium Chloride [Klor-Con 10] 50 meq PO DAILY 06/28/20 [History Confirmed 08/06/20] metOLazone [Metolazone] 5 mg PO Q48H 06/28/20 [History Confirmed 08/06/20] Albuterol 2.5 mg/3 ml Neb [Proventil 2.5 mg/3 ml Neb] 2.5 mg IH Q6H PRN PRN neb 07/01/20 [Rx Confirmed 08/06/20] Apixaban [Eliquis 2.5 mg Tablet] 2.5 mg PO BID #60 tablet 07/01/20 [Rx Confirmed 08/06/20] Bumetanide [Bumex] 2 mg PO DAILY #30 tablet 07/01/20 [Rx Confirmed 08/06/20] Famotidine 20 mg [Pepcid 20 MG] 20 mg PO BID #60 tablet 07/01/20 [Rx Con firmed 08/06/20] PANTOPRAZOLE 40 mg Tablet [Protonix 40MG Tablet] 40 mg PO DAILY #30 tab 07/01/20 [Rx Confirmed 08/06/20] Cephalexin Mh 500 mg [Keflex 500 mg] 500 mg PO QID 08/06/20 [History Confirmed 08/06/20] Allergies/Adverse Reactions: Allergies Allergy/AdvReac Type Severity Reaction Status Date / Time No Known Drug Allergies Allergy Verified 08/06/20 18:47 - Past Medical History Past Medical History: Yes Neurological History: TIA ENT History: Cataracts Cardiac History: Congestive Heart Failure, Coronary Artery Disease, High Cholesterol, Hypertension, Myocardial Infarction (MS) Respiratory History: CHF, COPD, Lung Cancer, Pneumonia Endocrine Medical History: No Pertinent History Musculoskelatal History: No Pertinent History GI Medical History: GI Bleed, Other History: Other Pyscho-Social History: No Pertinent History Male Reproductive Disorders: No Pertinent History Comment: kidney failure, anemia with blood transfusion, Lung cancer left upper lobe - Past Surgical History Past Surgical History: Yes Neuro Surgical History: No Pertinent History Cardiac History: Cardiac Catheterization, Cardiac Stent Respiratory Surgery: No Pertinent History GI Surgical History: Appendectomy, Hernia Repair Genitourinary Surgical Hx: No Pertinent History Musculskeletal Surgical Hx: Orthopedic Surgery Male Surgical History: No Pertinent History Other Surgical History: EGD/Colonoscopy 2016,. 2019 kyphoplasty t8-t9, cardiac stent x . 2019-lumbar back surgery - Social History Smoking Status: Former smoker How long have you smoked: 50 yrs Exposure to second hand smoke: No Alcohol: None Drug Use: none - Physical Exam Vital Signs: Vital Signs - 24 hr Temp Pulse Resp BP Pulse Ox 08/08/20 07:24 98.0 F 130 H 20 162/65 98 08/08/20 07:13 120 H 20 93 L 08/08/20 03:56 97.7 F 144 H 18 128/73 93 L 08/07/20 23:56 97.4 F 69 17 159/70 97 08/07/20 23:15 69 17 97 08/07/20 19:51 97.8 F 76 20 132/62 96 08/07/20 19:16 74 18 96 08/07/20 16:00 97.9 F 82 18 121/56 94 L 08/07/20 14:44 75 16 94 L 08/07/20 12:00 98.0 F 83 14 111/56 94 L Oxygen-Last 24 hours Oxygen Flowrate (L/min)-RT 3 General Appearance: moderate distress, alert Neurologic Exam: alert, oriented x 3, cooperative, normal mood/affect, nml cerebellar function, nml station & gait, sensation nml, No motor deficits Eye Exam: PERRL/EOMI, eyes nml inspection Ears, Nose, Throat Exam: normal ENT inspection, TMs normal, pharynx normal, moist mucous membranes Neck Exam: normal inspection, non-tender, supple, full range of motion Respiratory Exam: respiratory distress, crackles/rales, rhonchi, wheezing Cardiovascular Exam: tachycardia, irregular, capillary refill >3 sec, edema, pulse deficit Gastrointestinal/Abdomen Exam: soft, normal bowel sounds, distention, No tenderness, No mass Back Exam: normal inspection, normal range of motion, No CVA tenderness, No vertebral tenderness Extremity Exam: normal inspection, normal range of motion, pelvis stable Skin Exam: normal color, warm, dry, No rash Lymphatic Exam: No adenopathy Results - Labs Lab/Micro Results: Lab Results-Last 24 Hours 08/07/20 08/07/20 08/07/20 Range/Units 05:00 11:43 16:31 POC Glucometer 218 H 198 H (74 to 106) mg/dL Hemoglobin A1c 6.05 H (4.5-6.0) % 08/07/20 08/08/20 Range/Units 21:07 07:19 POC Glucometer 252 H 169 H (74 to 106) mg/dL Hemoglobin A1c (4.5-6.0) % Microbiology 08/06/20 12:35 Blood Culture Gram Stain - Final Blood Blood Culture - Preliminary GRAM NEGATIVE ID AND SENSITIVITY PENDING 08/06/20 13:30 Blood Culture Gram Stain - Final Blood Blood Culture - Preliminary GRAM NEGATIVE ID AND SENSITIVITY PENDING Accuchecks Date 08/07/20 Date 08/07/20 Time 16:58 Time 12:25 - Radiology Impressions Radiology Exams & Impressions: Radiology Procedures Category Date Time Status CHEST 1 VIEW (PORTABLE) IN AM Exams 08/07/20 06:00 Completed CHEST 1 VIEW (PORTABLE) Stat Exams 08/06/20 13:46 Completed ECHO W/2D AND DOPPLER [US] Routine Exams 08/08/20 09:57 Ordered Portable chest demonstrates new left lower lung opacity, infiltrate versus atelectasis. Remaining chest unchanged again demonstrating pulmonary emphysema, chronic interstitial lung markings, calcified granulomas, and left hemithorax calcified pleural plaquing. Heart is borderline enlarged. Assessment/Plan (1) Pneumonia Current Visit: Yes Status: Acute Qualifiers: Pneumonia type: due to other aerobic Gram-negative bacteria Laterality: left Lung location: lower lobe of lung Qualified Code(s): J15.6 - Pneumonia due to other Gram-negative bacteria Assessment & Plan: Chief Complaint Diagnosis COPD Exacerbation Allergies Allergy/AdvReac Type Severity Reaction Status Date / Time No Known Drug Allergies Allergy Verified 08/06/20 18:47 Vital Signs (Last 24 hours) Temp Pulse Resp BP Pulse Ox 08/08/20 07:24 98.0 F 130 H 20 162/65 98 08/08/20 07:13 120 H 20 93 L 08/08/20 03:56 97.7 F 144 H 18 128/73 93 L 08/07/20 23:56 97.4 F 69 17 159/70 97 08/07/20 23:15 69 17 97 08/07/20 19:51 97.8 F 76 20 132/62 96 08/07/20 19:16 74 18 96 08/07/20 16:00 97.9 F 82 18 121/56 94 L 08/07/20 14:44 75 16 94 L 08/07/20 12:00 98.0 F 83 14 111/56 94 L Home Medications Medication Instructions Recorded Confirmed Last Taken Type Cephalexin Mh 500 mg [Keflex 500 500 mg PO QID 08/06/20 08/06/20 08/05/20 History mg] Current Medications Generic Name Dose Route Start Last Admin Trade Name Freq PRN Reason Stop Dose Admin Acetaminophen 650 mg 08/06/20 19:50 08/07/20 21:05 Tylenol 325 Mg PO 09/05/20 19:49 650 mg Q4H PRN PRN Administration PAIN AND/OR FEVER Albuterol Sulfate 2.5 mg 08/07/20 07:27 Proventil 2.5 Mg/3 Ml Neb IH 09/06/20 07:26 Q6H PRN PRN SHORTNESS OF BREATH/WHEEZING Albuterol/Ipratropium 3 ml 08/06/20 19:00 08/08/20 10:30 Duoneb 0.5-3 Mg/3 Ml Neb IH 09/05/20 18:59 Not Given Q4HRT SIMBA Apixaban 2.5 mg 08/07/20 10:00 08/08/20 10:15 Eliquis 2.5 Mg Tablet PO 09/06/20 09:59 2.5 mg BID SIMBA Administration Diltiazem HCl 120 mg 08/08/20 10:00 08/08/20 08:17 Cardizem Cd 120 Mg PO 09/07/20 09:59 120 mg DAILY SIMBA Administration Famotidine 20 mg 08/07/20 10:00 08/08/20 10:13 Pepcid 20 Mg PO 09/06/20 09:59 20 mg BID SIMBA Administration Fentanyl Citrate 25 mcg 08/06/20 18:20 08/06/20 18:29 Sublimaze 100 Mcg/2 Ml IV 08/11/20 18:19 25 mcg Q6H PRN PRN Administration SEVERE PAIN Folic Acid 1 mg 08/07/20 10:00 08/08/20 10:16 Folate 1 Mg PO 09/06/20 09:59 1 mg DAILY SIMBA Administration Furosemide 40 mg 08/06/20 17:12 08/08/20 09:56 Lasix 40 Mg/4 Ml IV 09/05/20 17:11 40 mg BID DIURETIC SIMBA Administration Gabapentin 200 mg 08/06/20 22:00 08/07/20 21:04 Neurontin 100 Mg PO 09/05/20 21:59 200 mg HS SIMBA Administration Gabapentin 100 mg 08/07/20 10:00 08/08/20 10:15 Neurontin 100 Mg PO 09/06/20 09:59 100 mg DAILY SIMBA Administration Sodium Chloride 1,000 mls @ 50 mls/hr 08/06/20 17:12 08/08/20 09:51 Sodium Chloride 0.9% 1000 Ml IV 09/05/20 17:11 50 mls/hr .Q20H SIMBA Administration Azithromycin 500 mg in 250 mls @ 250 mls/hr 08/07/20 10:00 08/07/20 10:54 Zithromax 500 Mg/ 250 Ml Nacl Premix IV 09/06/20 09:59 250 mls/hr Q24H10 SIMBA Administration Ceftriaxone Sodium/Dextrose 1 g in 50 mls @ 100 mls/hr 08/07/20 10:00 08/08/20 10:00 Rocephin 1 Gm-D5w 50 Ml Bag IV 09/06/20 09:59 100 mls/hr Q24H10 SIMBA Administration Diltiazem HCl 100 mls @ 5 mls/hr 08/08/20 08:31 08/08/20 08:48 Cardizem Drip 100 Mg/100 Ml D5w IV 09/07/20 08:30 5 mg/hr .Q20H PRN 5 mls/hr HEART RATE/ A-FIB Administration Protocol 5 MG/HR Insulin Human Regular 0 unit 08/06/20 17:12 08/07/20 21:09 Humulin R SQ 09/05/20 17:11 4 unit UD PRN Administration HYPERGLYCEMIA Magnesium Oxide 400 mg 08/06/20 22:00 08/08/20 10:14 Mag-Ox 400 PO 09/05/20 21:59 400 mg BID SIMBA Administration Methylprednisolone Sodium Succinate 80 mg 08/06/20 18:00 08/08/20 07:23 Solu-Medrol 125 Mg IV 09/05/20 17:59 80 mg Q6HT SIMBA Administration Metoprolol Tartrate 50 mg 08/07/20 10:00 08/08/20 08:17 Lopressor 50 Mg PO 09/06/20 09:59 50 mg DAILY SIMBA Administration Miscellaneous Information 0 each 08/07/20 07:45 Medication Intervention MC 09/06/20 07:44 .RN TO CHECK WITH PT SIMBA Ondansetron HCl 4 mg 08/06/20 19:42 08/06/20 19:47 Zofran 4 Mg/2 Ml Vial IV 09/05/20 19:41 4 mg Q4H PRN PRN Administration NAUSEA/VOMITING Pantoprazole Sodium 40 mg 08/07/20 10:00 08/08/20 10:16 Protonix 40mg Tablet PO 09/06/20 09:59 40 mg DAILY SIMBA Administration Potassium Chloride 50 meq 08/07/20 10:00 08/08/20 10:14 Klor Con 10 Meq PO 09/06/20 09:59 50 meq DAILY SIMBA Administration Simvastatin 10 mg 08/06/20 22:00 08/07/20 21:04 Zocor 10mg PO 09/05/20 21:59 10 mg HS SIMBA Administration Discontinued Medications Generic Name Dose Route Start Last Admin Trade Name Freq PRN Reason Stop Dose Admin Acetaminophen 500 mg 08/06/20 13:52 08/06/20 13:55 Tylenol Extra Strength 500 Mg PO 08/06/20 13:53 500 mg STAT STA Administration Acetaminophen Confirm 08/06/20 13:52 Tylenol Extra Strength 500 Mg Administered 08/06/20 13:53 Dose 500 mg .ROUTE .STK-MED ONE Acetaminophen Confirm 08/06/20 19:52 Tylenol 325 Mg Administered 08/06/20 19:53 Dose 650 mg .ROUTE .STK-MED ONE Albuterol/Ipratropium Confirm 08/06/20 17:35 Duoneb 0.5-3 Mg/3 Ml Neb Administered 08/06/20 17:36 Dose 3 ml IH .STK-MED ONE Apixaban 2.5 mg 08/07/20 22:00 Eliquis 2.5 Mg Tablet PO 08/07/20 22:01 ONCE ONE Apixaban 2.5 mg 08/06/20 22:00 08/06/20 21:39 Eliquis 2.5 Mg Tablet PO 08/06/20 22:01 2.5 mg ONCE ONE Administration Diltiazem HCl 10 mg 08/08/20 00:22 08/08/20 00:37 Cardizem Iv 50 Mg/10 Ml IV 08/08/20 00:23 10 mg STAT ONE Administration Diltiazem HCl 120 mg 08/08/20 00:24 08/08/20 00:37 Cardizem Cd 120 Mg PO 08/08/20 00:25 120 mg NOW ONE Administration Diltiazem HCl Confirm 08/08/20 00:23 Cardizem Cd 120 Mg Administered 08/08/20 00:24 Dose 120 mg .ROUTE .STK-MED ONE Famotidine 20 mg 08/06/20 22:00 08/06/20 21:35 Pepcid 20 Mg Vial IV 09/05/20 21:59 20 mg Q12HT SIMBA Administration Furosemide 40 mg 08/06/20 13:28 08/06/20 13:46 Lasix 40 Mg/4 Ml IV 08/06/20 13:29 40 mg STAT ONE Administration Furosemide Confirm 08/06/20 13:43 Lasix 40 Mg/4 Ml Administered 08/06/20 13:44 Dose 40 mg .ROUTE .STK-MED ONE Sodium Chloride 1,000 mls @ 50 mls/hr 08/06/20 13:30 08/06/20 13:46 Sodium Chloride 0.9% 1000 Ml IV 09/05/20 13:29 50 mls/hr .Q20H SIMBA Administration Ceftriaxone Sodium 500 mg/ 100 mls @ 100 mls/hr 08/06/20 14:23 08/06/20 15:35 Sodium Chloride IV 08/06/20 15:22 Not Given STAT ONE Azithromycin 500 mg in 250 mls @ 250 mls/hr 08/06/20 14:23 08/06/20 16:08 Zithromax 500 Mg/ 250 Ml Nacl Premix IV 08/06/20 15:22 250 mls/hr STAT STA 250 mls/hr Administration Ceftriaxone Sodium/Dextrose 1 g in 50 mls @ 100 mls/hr 08/06/20 15:36 08/06/20 16:14 Rocephin 1 Gm-D5w 50 Ml Bag IV 08/06/20 16:05 Infused STAT STA Infusion Ceftriaxone Sodium/Dextrose Confirm 08/06/20 15:34 Rocephin 1 Gm-D5w 50 Ml Bag Administered 08/06/20 15:35 Dose 1 g in 50 mls @ ud IV .STK-MED ONE Azithromycin Confirm 08/06/20 16:07 Zithromax 500 Mg/ 250 Ml Nacl Premix Administered 08/06/20 16:08 Dose 500 mg in 250 mls @ ud IV .STK-MED ONE Sodium Chloride Confirm 08/06/20 13:43 Sodium Chloride 0.9% 1000 Ml Administered 08/06/20 13:44 Dose 1,000 mls @ ud .ROUTE .STK-MED ONE Insulin Human Lispro 0 unit 08/06/20 17:12 Humalog SQ 09/05/20 17:11 UD PRN HYPERGLYCEMIA Ondansetron HCl Confirm 08/06/20 19:44 Zofran 4 Mg/2 Ml Vial Administered 08/06/20 19:45 Dose 4 mg .ROUTE .STK-MED ONE Intake & Output (Last 24 hours) 08/05/20 08/06/20 08/07/20 08/08/20 11:59 11:59 11:59 11:59 Intake Total 1395 1395 Output Total 1600 850 Balance -205 545 Weight 71 kg 74.7 kg Microbiology Results (Last 24 hours) 08/06/20 12:35 Blood Blood Culture Gram Stain - Final 08/06/20 12:35 Blood Blood Culture - Preliminary GRAM NEGATIVE ID AND SENSITIVITY PENDING 08/06/20 13:30 Blood Blood Culture Gram Stain - Final 08/06/20 13:30 Blood Blood Culture - Preliminary GRAM NEGATIVE ID AND SENSITIVITY PENDING Laboratory Results (Last 24 hours) 08/08/20 08/07/20 08/07/20 07:19 21:07 16:31 POC Glucometer 169 H 252 H 198 H Hemoglobin A1c 08/07/20 08/07/20 11:43 05:00 POC Glucometer 218 H Hemoglobin A1c 6.05 H Orders (Last 24 hours) Category Date Time Status Consult Cardiology ROUTINE Cons 08/08/20 08:32 Active ECHO W/2D AND DOPPLER [US] Routine Exams 08/08/20 09:57 Ordered POCT GLUCOSE Stat Lab 08/07/20 11:43 Completed POCT GLUCOSE Stat Lab 08/07/20 16:31 Completed POCT GLUCOSE Stat Lab 08/07/20 21:07 Completed POCT GLUCOSE Stat Lab 08/08/20 07:19 Completed Apixaban [Eliquis 2.5 mg Tablet] Med 08/07/20 10:00 Active 2.5 mg PO BID Apixaban [Eliquis 2.5 mg Tablet] Med 08/07/20 22:00 Discontinued 2.5 mg PO ONCE ONE Azithromycin 500 mg/250 ml [Zithromax 500 MG/ 250 ML Med 08/07/20 10:00 Active NaCl Premix] 500 mg in 250 ml IV Q24H10 Ceftriaxone 1 GM/50 ML PREMIX* [ROCEPHIN 1 Gm-D5w 50 ml Med 08/07/20 10:00 Active Bag] 1 g in 50 ml IV Q24H10 Diltiazem HCl 100 mg/100 ml [Cardizem Drip 100 mg/100 Med 08/08/20 08:31 Active ml D5w] 100 ml IV 5 mg/hr Diltiazem HCl 120 mg [Cardizem CD 120 MG] Med 08/08/20 00:23 Discontinued 120 mg .ROUTE .STK-MED ONE Diltiazem HCl 120 mg [Cardizem CD 120 MG] Med 08/08/20 10:00 Active 120 mg PO DAILY Diltiazem HCl 120 mg [Cardizem CD 120 MG] Med 08/08/20 00:24 Discontinued 120 mg PO NOW ONE Diltiazem HCl 50 mg/10 ml [Cardizem IV 50 MG/10 ML Med 08/08/20 00:22 Discontinued *] 10 mg IV STAT ONE Famotidine 20 mg [Pepcid 20 MG] Med 08/07/20 10:00 Active 20 mg PO BID Flu Vacc [id number](65Yr Up)/Pf [Fluzone High-Dose Quad Med 08/07/20 10:00 Discontinued ] 240 mcg IM .ONCE ONE Folic Acid 1 mg [Folate 1 mg] Med 08/07/20 10:00 Active 1 mg PO DAILY Gabapentin 100 mg [Neurontin 100 MG] Med 08/07/20 10:00 Active 100 mg PO DAILY Metoprolol Tartrate 50 mg [Lopressor 50 MG] Med 08/07/20 10:00 Active 50 mg PO DAILY PANTOPRAZOLE 40 mg Tablet [Protonix 40MG Tablet] Med 08/07/20 10:00 Active 40 mg PO DAILY Potassium Chloride 10 Meq Tab* [Klor Con 10 MEQ] Med 08/07/20 10:00 Active 50 meq PO DAILY PT Eval & Treat ( Order) ONCE PT 08/07/20 19:11 Active Transfer Order Routine Transfer 08/08/20 Completed Patient Care Notes (Last 24 hours) 08/08/20 08:47 Case Management Note by Kate Royal PATIENT ACUTELY ILL AT THIS TIME- BEING TRANSFERRED TO ICU AT THIS TIME Initialized on 08/08/20 08:47 - END OF NOTE 08/08/20 03:58 Respiratory Note by Franco Miranda WITH HELD PT DUONEB TX PER NURSES SUGGESTION PT CURRENTLY HAS AFIB W/ RVR. PT HR IS CURRENTLY 138-158. Initialized on 08/08/20 03:58 - END OF NOTE 08/07/20 13:09 Case Management Note by Kate Royal [employer] NOTIFIED PATIENT IS HERE INPT. THEY WILL NEED NOTIFIED WHEN PATIENT DCS HOME AT [phone]. THEY WILL NEED FAXED THE DC INSTRUCTIONS, DC MED LIST AND DC SUMMARY IF AVAILABLE TO [phone] Initialized on 08/07/20 13:09 - END OF NOTE 08/07/20 12:37 Nursing Note by Gregoria Grier insulin order clarified with Dr. De La Torre at this time. Initialized on 08/07/20 12:37 - END OF NOTE 08/07/20 10:55 Nursing Note by Gregoria Grier flu vaccine consent signed. pt denies any allergy to eggs or anything else. vaccines administered. vaccine reminder of date given provided. Initialized on 08/07/20 10:55 - END OF NOTE Code(s): J18.9 - PNEUMONIA, UNSPECIFIED ORGANISM (2) CHF (congestive heart failure), NYHA class III Current Visit: Yes Status: Chronic Qualifiers: Congestive heart failure type: combined Congestive heart failure chronicity: acute on chronic Qualified Code(s): I50.43 - Acute on chronic combined systolic (congestive) and diastolic (congestive) heart failure Code(s): I50.9 - HEART FAILURE, UNSPECIFIED (3) COPD exacerbation Current Visit: Yes Status: Chronic Code(s): J44.1 - CHRONIC OBSTRUCTIVE PULMONARY DISEASE W (ACUTE) EXACERBATION
[2020-08-08] MEDS: Zithromax 500 MG/ 250 ML NaCl Premix 500 MG/250 ML IVPB IV SCH (11:03)
--- NOTE | 2020-08-08 11:36 | PCM.NOTE ---
Date and Time: 08/08/20 1135 Subjective Assessment: doing ok, had an episode of afib. labs are reviewed. - Review of Systems Constitutional: No Fever, No Chills Eyes: No Symptoms Ears, Nose, & Throat: No Symptoms Respiratory: No Cough, No Short Of Breath Cardiac: Edema, Palpitations, No Chest Pain, No Syncope Abdominal/Gastrointestinal: No Abdominal Pain, No Nausea, No Vomiting, No Diarrhea Genitourinary Symptoms: No Dysuria Musculoskeletal: No Back Pain, No Neck Pain Skin: No Rash Neurological: No Dizziness, No Focal Weakness, No Sensory Changes Psychological: No Symptoms Endocrine: No Symptoms Hematologic/Lymphatic: No Symptoms Immunological/Allergic: No Symptoms Objective Exam General Appearance: mild distress, alert Neurologic Exam: alert, oriented x 3, cooperative, normal mood/affect, No motor deficits Skin Exam: normal color, warm, dry Eye Exam: PERRL, EOMI, eyes nml inspection Ears, Nose, Throat Exam: normal ENT inspection, pharynx normal, moist mucous membranes Neck Exam: normal inspection, non-tender, supple, full range of motion Respiratory Exam: crackles/rales, rhonchi, No respiratory distress Cardiovascular Exam: regular rate/rhythm, normal heart sounds Gastrointestinal/Abdomen Exam: soft, No tenderness, No mass Extremity Exam: normal inspection, normal range of motion Back Exam: normal inspection, normal range of motion, No CVA tenderness, No vertebral tenderness Male Genitalia Exam: deferred Rectal Exam: deferred OBJECTIVE DATA Vital Signs: Vital Signs - 24 hr Temp Pulse Resp BP Pulse Ox 08/08/20 07:24 98.0 F 130 H 20 162/65 98 08/08/20 07:13 120 H 20 93 L 08/08/20 03:56 97.7 F 144 H 18 128/73 93 L 08/07/20 23:56 97.4 F 69 17 159/70 97 08/07/20 23:15 69 17 97 08/07/20 19:51 97.8 F 76 20 132/62 96 08/07/20 19:16 74 18 96 08/07/20 16:00 97.9 F 82 18 121/56 94 L 08/07/20 14:44 75 16 94 L 08/07/20 12:00 98.0 F 83 14 111/56 94 L Oxygen-Last 24 hours Oxygen Flowrate (L/min)-RT 3 Pain Assessment - Last Documented Pain Intensity 0 Pain Scale Used 0-10 Pain Scale Intake and Output: Intake & Output 08/05/20 08/06/20 08/07/20 08/08/20 11:59 11:59 11:59 11:59 Intake Total 1395 1395 Output Total 1600 850 Balance -205 545 Weight 71 kg 74.7 kg Lab Results: Lab Results-Last 24 Hours 08/07/20 08/07/20 08/07/20 Range/Units 05:00 11:43 16:31 POC Glucometer 218 H 198 H (74 to 106) mg/dL Hemoglobin A1c 6.05 H (4.5-6.0) % 08/07/20 08/08/20 08/08/20 Range/Units 21:07 07:19 10:55 POC Glucometer 252 H 169 H 231 H (74 to 106) mg/dL Hemoglobin A1c (4.5-6.0) % Radiology Exams: Radiology Procedures Category Date Time Status CHEST 1 VIEW (PORTABLE) IN AM Exams 08/07/20 06:00 Completed CHEST 1 VIEW (PORTABLE) Stat Exams 08/06/20 13:46 Completed ECHO W/2D AND DOPPLER [US] Routine Exams 08/08/20 09:57 Ordered Multi-Disciplinary Progress Notes: Multi-Disciplinary Progress Notes 08/08/20 11:18 Physical Therapy Note by Meño Hampton PT enmaal held for now due to Afib and tachycardia. Pt was informed of this and gave brief hx. Initialized on 08/08/20 11:18 - END OF NOTE 08/08/20 08:47 Case Management Note by Kate Royal PATIENT ACUTELY ILL AT THIS TIME- BEING TRANSFERRED TO ICU AT THIS TIME Initialized on 08/08/20 08:47 - END OF NOTE 08/08/20 03:58 Respiratory Note by Franco Miranda WITH HELD PT DUONEB TX PER NURSES SUGGESTION PT CURRENTLY HAS AFIB W/ RVR. PT HR IS CURRENTLY 138-158. Initialized on 08/08/20 03:58 - END OF NOTE 08/07/20 13:09 Case Management Note by Kate Royal [employer] NOTIFIED PATIENT IS HERE INPT. THEY WILL NEED NOTIFIED WHEN PATIENT DCS HOME AT [phone]. THEY WILL NEED FAXED THE DC INSTRUCTIONS, DC MED LIST AND DC SUMMARY IF AVAILABLE TO [phone] Initialized on 08/07/20 13:09 - END OF NOTE Assessment/Plan (1) Pneumonia Current Visit: Yes Status: Acute Qualifiers: Pneumonia type: due to other aerobic Gram-negative bacteria Laterality: left Lung location: lower lobe of lung Qualified Code(s): J15.6 - Pneumonia due to other Gram-negative bacteria Code(s): J18.9 - PNEUMONIA, UNSPECIFIED ORGANISM (2) CHF (congestive heart failure), NYHA class III Current Visit: Yes Status: Chronic Qualifiers: Congestive heart failure type: combined Congestive heart failure chronicity: acute on chronic Qualified Code(s): I50.43 - Acute on chronic combined systolic (congestive) and diastolic (congestive) heart failure Code(s): I50.9 - HEART FAILURE, UNSPECIFIED (3) COPD exacerbation Current Visit: Yes Status: Chronic Code(s): J44.1 - CHRONIC OBSTRUCTIVE PULMONARY DISEASE W (ACUTE) EXACERBATION (4) Atrial fibrillation Current Visit: Yes Status: Acute Code(s): I48.91 - UNSPECIFIED ATRIAL FIBRILLATION
[2020-08-08] MEDS: HUMULIN R SQ PRN ×2 (12:18→22:05)
[2020-08-08] MEDS: TYLENOL 325 MG PO PRN (12:21)
[2020-08-08 13:28] LABS: ALBUMIN 2.8 g/dL (3.5-5.0); ANION GAP 9.7 MEQ/L (5-15); BILIRUBIN,TOTAL 0.3 mg/dL (0.2-1.3); Calcium 7.8 mg/dL (8.4-10.2); Creatinine 1 1.72 mg/dL (0.66-1.25); EST GLOMERULAR FILTRATION RATE 41.1 ML/MIN; MAGNESIUM 1.7 mg/dL (1.6-2.3); PHOSPHOROUS 2.5 mg/dL (2.5-4.5); Potassium 3.5 mmol/L (3.5-5.1); Total Protein 5.7 g/dL (6.3-8.2)
--- NOTE | 2020-08-08 13:47 | CONS ---
CONSULT DATE: 08/08/2020 HISTORY: This is a 79 year old male with known history of coronary artery disease status post previous percutaneous coronary intervention and also history of non-ST elevation myocardial infarction. He was admitted because of shortness of breath. The patient while in the hospital developed tachycardia with underlying atrial fibrillation and was placed on IV Cardizem. At the time of examination the patient was denying any chest pains. He also gets shortness of breath with minimal exertion. In addition, he is also bothered by back pain for which he has undergone kyphoplasty on his previous admission to [facility]. The patient is known to have coronary artery disease. He has had previous coronary interventions. He had a cardiac catheterization done about a month ago that showed the stent to the RCA to be patent, circumflex free of any significant disease. Left anterior descending artery with an ostial 50% narrowing. He was stratified to medical therapy. In the interim, he was [place] [facility] he developed significant GI bleeding that required blood transfusion. He cannot tolerate antiplatelet therapy. He is currently on DOAC (direct oral anticoagulant) for atrial fibrillation and history of extensive deep venous thrombosis. The patient also has a history of fall sustaining a back injury and had kyphoplasty. He has history of extensive deep venous thrombosis involving the right lower extremity. CARDIAC RISK FACTORS: Positive for hypertension. Positive for hyperlipidemia. He has a history of smoking. CURRENT MEDICATIONS: Cardizem drip, Apixaban, famotidine, folic acid, furosemide, gabapentin, Mag-Ox, metoprolol, Solu-Medrol, Protonix, potassium and Simvastatin. REVIEW OF SYSTEMS: ADMISSIONS DIRECTOR: No history of stroke or seizures. RESPIRATORY: He has chronic obstructive lung disease. He has history of exacerbation. CVS: He has history of atrial fibrillation. GI: No history of nausea or vomiting. History of GI bleeding recently. : Negative for dysuria or hematuria. He has chronic renal failure. MUSCULOSKELETAL: He has chronic back derangement. ENDOCRINE: No thyroid disorder. HEMATOLOGY: He has easy bruising. PHYSICAL EXAMINATION: Blood pressure 128/72, heart rate is about 115 in atrial fibrillation, respirations about 18. GENERAL: The patient is an elderly male who appears chronically ill, conversant, somewhat hard of hearing who denies any chest pain. HEENT: Mildly pale conjunctivae. NECK: No obvious JVD. No carotid bruit. CHEST: The breath sounds are diminished with some basilar crackles on the left side. CARDIAC: Heart tones are variable. The rhythm is atrial fibrillation. There is no S3 gallop. No rub. ABDOMEN: Protuberant with normal bowel sounds. No tenderness or guarding. EXTREMITIES: No significant edema with decreased distal pulses. LAB DATA AND DIAGNOSTIC TESTS: EKG done on 08/06/2020 showed atrial fibrillation with poor R-wave progression. There is baseline artifact. ASSESSMENT AND PLAN: 1) Permanent atrial fibrillation with associated tachycardia, will increase the beta triny and start weaning off the Cardizem, continue with anticoagulation. 2) Coronary artery disease status post previous coronary intervention currently angina-free. Unfortunately, the patient is unable to tolerate any antiplatelet medication which causes him to have GI bleed. 3) Chronic obstructive lung disease with exacerbation. He currently has pneumonia which is apparently contributing to his shortness of breath. 4) Chronic kidney disease stage III. 5) History of back pain status post kyphoplasty. 6) History of rheumatoid arthritis.
[2020-08-08] MEDS: SUBLIMAZE 100 MCG/2 ML IV PRN (17:51)
[2020-08-08] MEDS: Zocor 10MG PO SCH (22:04)
[2020-08-09] MEDS: SUBLIMAZE 100 MCG/2 ML IV PRN ×2 (00:14→08:39)
[2020-08-09] MEDS: solu-MEDROL 125 MG IV SCH ×4 (00:15→17:13)
[2020-08-09] MEDS: DUONEB 0.5-3 MG/3 ml Neb IH SCH ×6 (02:56→23:31)
[2020-08-09 05:20] LABS: Absolute Neutrophil Ct (ANC) 6.28 (1.4-6.9); BASOPHIL % 0.2 % (0.0-0.4); Basophil (Absolute #) 0.01 (0-0.4); Eosinophil (Absolute #) 0 (0-0.5); Hematocrit 22.2 % (42-50); Lymphocyte (Absolute #) 0.15 (1.0-4.6); Lymphocytes % 2.3 % (24.0-44.0); Mean Cell Volume 100.9 fl (78-100); Mean Corpuscular Hemoglobin 31.8 pg (26-32); Mean Corpuscular Hgb Concent. 31.5 g/dl (32-36); Mean Platelet Volume 10.9 fl (7.5-11.0); Monocyte (Absolute #) 0.21 (0.0-1.3); Monocytes % 3.2 % (0.0-12.0); Neutrophil % 94.3 % (36.0-66.0); Platelet Count 138 K/mm3 (150-450); Red Cell Distribution Width 17.3 % (11.5-14.0); White Blood Count 6.7 K/mm3 (4.0-10.5)
[2020-08-09 05:28] LABS: ALBUMIN 2.7 g/dL (3.5-5.0); ANION GAP 6.1 MEQ/L (5-15); BILIRUBIN,TOTAL 0.3 mg/dL (0.2-1.3); Calcium 7.7 mg/dL (8.4-10.2); Creatinine 1 1.68 mg/dL (0.66-1.25); EST GLOMERULAR FILTRATION RATE 42.2 ML/MIN; MAGNESIUM 1.8 mg/dL (1.6-2.3); Total Protein 5.5 g/dL (6.3-8.2)
[2020-08-09 05:31] LABS: Potassium 2.9 mmol/L (3.5-5.1)
[2020-08-09 06:19] LABS: Slide Review 1 YES
[2020-08-09] MEDS: Sodium Chloride 0.9% 1000 ML 1,000 ML IV SCH (06:50)
[2020-08-09] MEDS: POTASSIUM CHLORIDE 20 mEq IN WATER 100ML 20 MEQ/100 ML BAG IV SCH ×2 (06:50→08:41)
[2020-08-09 08:06] LABS: ABO TYPING A; RH TYPING POSITIVE
[2020-08-09 08:08] LABS: Antibody Screen POSITIVE (NEGATIVE)
[2020-08-09] MEDS: ROCEPHIN 1 Gm-D5w 50 ml Bag** 1 G/50 ML IVPB IV SCH (09:00)
[2020-08-09] MEDS: Klor Con 10 MEQ PO SCH (09:07)
[2020-08-09] MEDS: MAG-OX 400 PO SCH ×2 (09:08→21:18)
[2020-08-09] MEDS: ELIQUIS 2.5 MG TABLET PO SCH ×2 (09:08→21:19)
[2020-08-09] MEDS: Pepcid 20 MG PO SCH ×2 (09:08→21:18)
[2020-08-09] MEDS: Lopressor 50 MG PO SCH ×2 (09:08→21:18)
[2020-08-09] MEDS: Protonix 40MG Tablet PO SCH (09:08)
[2020-08-09] MEDS: FOLATE 1 MG PO SCH (09:08)
[2020-08-09] MEDS: Neurontin 100 MG PO SCH ×2 (09:08→21:18)
[2020-08-09] MEDS: Cardizem CD 120 MG PO SCH (09:08)
[2020-08-09] MEDS: Lasix 40 MG/4 ML IV SCH ×2 (09:15→17:13)
[2020-08-09] MEDS: Zithromax 500 MG/ 250 ML NaCl Premix 500 MG/250 ML IVPB IV SCH (10:10)
[2020-08-09] MEDS: HUMULIN R SQ PRN ×3 (11:59→21:19)
[2020-08-09 20:59] LABS: CROSS MATCH (PRBC) COMPATIBLE (COMPATIBLE)
[2020-08-09] MEDS: Zocor 10MG PO SCH (21:18)
--- NOTE | 2020-08-09 22:21 | PCM.NOTE ---
Date and Time: 08/09/202218 Subjective Assessment: doing better - Review of Systems Constitutional: No Fever, No Chills Eyes: No Symptoms Ears, Nose, & Throat: No Symptoms Respiratory: Cough, Orthopnea, Short Of Breath Cardiac: Edema, No Chest Pain, No Syncope Abdominal/Gastrointestinal: No Abdominal Pain, No Nausea, No Vomiting, No Diarrhea Genitourinary Symptoms: No Dysuria Musculoskeletal: No Back Pain, No Neck Pain Skin: No Rash Neurological: No Dizziness, No Focal Weakness, No Sensory Changes Psychological: No Symptoms Endocrine: No Symptoms Hematologic/Lymphatic: No Symptoms Immunological/Allergic: No Symptoms Objective Exam General Appearance: mild distress, alert Neurologic Exam: alert, oriented x 3, cooperative, normal mood/affect, sensation nml, No motor deficits Skin Exam: normal color, warm, dry Eye Exam: PERRL, EOMI, eyes nml inspection Ears, Nose, Throat Exam: normal ENT inspection, pharynx normal, moist mucous membranes Neck Exam: normal inspection, non-tender, supple, full range of motion Respiratory Exam: diminished breath sounds, crackles/rales, rhonchi, wheezing, No respiratory distress Cardiovascular Exam: regular rate/rhythm, normal heart sounds Gastrointestinal/Abdomen Exam: soft, No tenderness, No mass Extremity Exam: normal inspection, normal range of motion Back Exam: normal inspection, normal range of motion, No CVA tenderness, No vertebral tenderness Male Genitalia Exam: deferred Rectal Exam: deferred OBJECTIVE DATA Vital Signs: Vital Signs - 24 hr Temp Pulse Resp BP BP Pulse Ox 08/09/20 19:48 66 19 96 08/09/20 19:00 97.9 F 71 18 145/58 93 L 08/09/20 15:03 68 20 95 08/09/20 15:00 70 22 128/68 95 08/09/20 11:02 67 19 138/64 08/09/20 10:26 76 18 95 08/09/20 08:00 99.6 F 78 21 119/57 93 L 08/09/20 06:40 80 18 93 L 08/09/20 04:00 98.3 F 72 19 115/53 92 L 08/09/20 02:57 70 19 92 L 08/09/20 00:00 68 08/08/20 23:47 98.1 F 68 19 104/51 99 08/08/20 23:43 72 20 120/64 1020/20 23:38 68 19 95 08/08/20 22:43 67 17 111/46 Oxygen-Last 24 hours Oxygen Flowrate (L/min)-RT 3 Pain Assessment - Last Documented Pain Intensity 4 Pain Scale Used 0-10 Pain Scale Intake and Output: Intake & Output 08/07/20 08/08/20 08/09/20 08/10/20 11:59 11:59 11:59 11:59 Intake Total 1395 1395 3337 Output Total 6418 820 5580 300 Balance -203 292 5525 -300 Weight 71 kg 74.7 kg 77.9 kg Lab Results: Lab Results-Last 24 Hours 08/09/20 08/09/20 08/09/20 Range/Units 04:59 04:59 07:00 WBC 6.7 (4.0-10.5) K/mm3 RBC 2.20 L (4.1-5.6) M/mm3 Hgb 7.0 L (12.5-18.0) gm/dl Hct 22.2 L (42-50) % MCV 100.9 H (78-100) fl MCH 31.8 (26-32) pg MCHC 31.5 L (32-36) g/dl RDW 17.3 H (11.5-14.0) % Plt Count 138 L (150-450) K/mm3 MPV 10.9 (7.5-11.0) fl Gran % 94.3 H (36.0-66.0) % Eos # (Auto) 0 (0-0.5) Absolute Lymphs (auto) 0.15 L (1.0-4.6) Absolute Monos (auto) 0.21 (0.0-1.3) Lymphocytes % 2.3 L (24.0-44.0) % Monocytes % 3.2 (0.0-12.0) % Eosinophils % 0.0 (0.00-5.0) % Basophils % 0.2 (0.0-0.4) % Absolute Granulocytes 6.28 (1.4-6.9) Basophils # 0.01 (0-0.4) Sodium 133 L (137-145) mmol/L Potassium 2.9 L* (3.5-5.1) mmol/L Chloride 92 L (98-107) mmol/L Carbon Dioxide 38 H (22-30) mmol/L Anion Gap 6.1 (5-15) MEQ/L BUN 52 H (9-20) mg/dL Creatinine 1.68 H (0.66-1.25) mg/dL Estimated GFR 42.2 ML/MIN Glucose 206 H (74-106) mg/dL POC Glucometer (74 to 106) mg/dL Calcium 7.7 L (8.4-10.2) mg/dL Magnesium 1.8 (1.6-2.3) mg/dL Total Bilirubin 0.30 (0.2-1.3) mg/dL AST 21 (17-59) U/L ALT 17 (0-50) U/L Alkaline Phosphatase 79 (38-126) U/L Serum Total Protein 5.5 L (6.3-8.2) g/dL Albumin 2.7 L (3.5-5.0) g/dL Slides for Path Review YES ABO Group A Rh Factor POSITIVE Antibody Screen POSITIVE (NEGATIVE) Crossmatch COMPATIBLE (COMPATIBLE) 08/09/20 08/09/20 08/09/20 Range/Units 07:00 07:17 11:11 WBC (4.0-10.5) K/mm3 RBC (4.1-5.6) M/mm3 Hgb (12.5-18.0) gm/dl Hct (42-50) % MCV (78-100) fl MCH (26-32) pg MCHC (32-36) g/dl RDW (11.5-14.0) % Plt Count (150-450) K/mm3 MPV (7.5-11.0) fl Gran % (36.0-66.0) % Eos # (Auto) (0-0.5) Absolute Lymphs (auto) (1.0-4.6) Absolute Monos (auto) (0.0-1.3) Lymphocytes % (24.0-44.0) % Monocytes % (0.0-12.0) % Eosinophils % (0.00-5.0) % Basophils % (0.0-0.4) % Absolute Granulocytes (1.4-6.9) Basophils # (0-0.4) Sodium (137-145) mmol/L Potassium (3.5-5.1) mmol/L Chloride (98-107) mmol/L Carbon Dioxide (22-30) mmol/L Anion Gap (5-15) MEQ/L BUN (9-20) mg/dL Creatinine (0.66-1.25) mg/dL Estimated GFR ML/MIN Glucose (74-106) mg/dL POC Glucometer 176 H 285 H (74 to 106) mg/dL Calcium (8.4-10.2) mg/dL Magnesium (1.6-2.3) mg/dL Total Bilirubin (0.2-1.3) mg/dL AST (17-59) U/L ALT (0-50) U/L Alkaline Phosphatase (38-126) U/L Serum Total Protein (6.3-8.2) g/dL Albumin (3.5-5.0) g/dL Slides for Path Review ABO Group Rh Factor Antibody Screen (NEGATIVE) Crossmatch COMPATIBLE (COMPATIBLE) 08/09/20 08/09/20 08/09/20 Range/Units 13:50 16:07 20:39 WBC (4.0-10.5) K/mm3 RBC (4.1-5.6) M/mm3 Hgb (12.5-18.0) gm/dl Hct (42-50) % MCV (78-100) fl MCH (26-32) pg MCHC (32-36) g/dl RDW (11.5-14.0) % Plt Count (150-450) K/mm3 MPV (7.5-11.0) fl Gran % (36.0-66.0) % Eos # (Auto) (0-0.5) Absolute Lymphs (auto) (1.0-4.6) Absolute Monos (auto) (0.0-1.3) Lymphocytes % (24.0-44.0) % Monocytes % (0.0-12.0) % Eosinophils % (0.00-5.0) % Basophils % (0.0-0.4) % Absolute Granulocytes (1.4-6.9) Basophils # (0-0.4) Sodium (137-145) mmol/L Potassium 3.6 D (3.5-5.1) mmol/L Chloride (98-107) mmol/L Carbon Dioxide (22-30) mmol/L Anion Gap (5-15) MEQ/L BUN (9-20) mg/dL Creatinine (0.66-1.25) mg/dL Estimated GFR ML/MIN Glucose (74-106) mg/dL POC Glucometer 275 H 279 H (74 to 106) mg/dL Calcium (8.4-10.2) mg/dL Magnesium (1.6-2.3) mg/dL Total Bilirubin (0.2-1.3) mg/dL AST (17-59) U/L ALT (0-50) U/L Alkaline Phosphatase (38-126) U/L Serum Total Protein (6.3-8.2) g/dL Albumin (3.5-5.0) g/dL Slides for Path Review ABO Group Rh Factor Antibody Screen (NEGATIVE) Crossmatch (COMPATIBLE) Multi-Disciplinary Progress Notes: Multi-Disciplinary Progress Notes 08/09/20 09:13 Case Management Note by Kate Royal PATIENT CONTINUES TO DENY ANY NEW NEEDS AT TIME OF DC. HE STATED 99.9% OF THE TIME SOMEONE IS THERE WITH HIM AND HE HAS HHC AND HOME OXYGEN ALREADY. WILL CONTINUE TO FOLLOW Initialized on 08/09/20 09:13 - END OF NOTE Assessment/Plan (1) Pneumonia Current Visit: Yes Status: Acute Qualifiers: Pneumonia type: due to other aerobic Gram-negative bacteria Laterality: left Lung location: lower lobe of lung Qualified Code(s): J15.6 - Pneumonia due to other Gram-negative bacteria Code(s): J18.9 - PNEUMONIA, UNSPECIFIED ORGANISM (2) CHF (congestive heart failure), NYHA class III Current Visit: Yes Status: Chronic Qualifiers: Congestive heart failure type: combined Congestive heart failure chronicity: acute on chronic Qualified Code(s): I50.43 - Acute on chronic combined systolic (congestive) and diastolic (congestive) heart failure Code(s): I50.9 - HEART FAILURE, UNSPECIFIED (3) COPD exacerbation Current Visit: Yes Status: Chronic Code(s): J44.1 - CHRONIC OBSTRUCTIVE PULMONARY DISEASE W (ACUTE) EXACERBATION (4) Atrial fibrillation Current Visit: Yes Status: Acute Code(s): I48.91 - UNSPECIFIED ATRIAL FIBRILLATION (5) Anemia Current Visit: No Status: Chronic Qualifiers: Anemia type: iron deficiency Iron deficiency anemia type: chronic blood loss Qualified Code(s): D50.0 - Iron deficiency anemia secondary to blood loss (chronic) Assessment & Plan: will transfuse 2 units of PRBC Code(s): D64.9 - ANEMIA, UNSPECIFIED (6) CAD (coronary artery disease) Current Visit: Yes Status: Chronic Qualifiers: Coronary Disease-Associated Artery/Lesion type: [place] artery [place] vs. transplanted heart: [place] heart Associated angina: without angina Qualified Code(s): I25.10 - Atherosclerotic heart disease of [place] coronary artery without angina pectoris Code(s): I25.10 - ATHSCL HEART DISEASE OF [place] CORONARY ARTERY W/O ANG PCTRS (7) COPD (chronic obstructive pulmonary disease) Current Visit: Yes Status: Chronic Qualifiers: COPD type: chronic bronchitis Chronic bronchitis type: simple Qualified Code(s): J41.0 - Simple chronic bronchitis (8) Chronic renal disease, stage 4, severely decreased glomerular filtration rate (GFR) between 15-29 mL/min/1.73 square meter Current Visit: Yes Status: Chronic Code(s): N18.4 - CHRONIC KIDNEY DISEASE, STAGE 4 (SEVERE)
[2020-08-10] MEDS: solu-MEDROL 125 MG IV SCH ×2 (01:31→06:36)
[2020-08-10] MEDS: DUONEB 0.5-3 MG/3 ml Neb IH SCH ×2 (02:38→06:16)
[2020-08-10] MEDS: HUMULIN R SQ PRN (06:58)
[2020-08-10 07:12] VITALS: BP 154/79; PULSE 79; O2SAT 94
[2020-08-10 07:50] LABS: Hematocrit 32.1 % (42-50); Hemoglobin 10.3 gm/dl (12.5-18.0)
[2020-08-10] MEDS: ELIQUIS 2.5 MG TABLET PO SCH (08:17)
[2020-08-10] MEDS: Protonix 40MG Tablet PO SCH (08:17)
[2020-08-10] MEDS: Klor Con 10 MEQ PO SCH (08:17)
[2020-08-10] MEDS: FOLATE 1 MG PO SCH (08:18)
[2020-08-10] MEDS: Cardizem CD 120 MG PO SCH (08:18)
[2020-08-10] MEDS: Pepcid 20 MG PO SCH (08:18)
[2020-08-10] MEDS: MAG-OX 400 PO SCH (08:18)
[2020-08-10] MEDS: Lopressor 50 MG PO SCH (08:18)
[2020-08-10] MEDS: ROCEPHIN 1 Gm-D5w 50 ml Bag** 1 G/50 ML IVPB IV SCH (08:19)
[2020-08-10] MEDS: Zithromax 500 MG/ 250 ML NaCl Premix 500 MG/250 ML IVPB IV SCH (08:19)
[2020-08-10] MEDS: Neurontin 100 MG PO SCH (08:19)
[2020-08-10] MEDS: Lasix 40 MG/4 ML IV SCH (08:19)
[2020-08-10] MEDS: SUBLIMAZE 100 MCG/2 ML IV PRN (08:35)
--- NOTE | 2020-08-10 11:45 | PCM.DS ---
Discharge Summary Date of Admission: 08/06/20 17:08 Admitting Physician: ALIYAH HOWARD Consults: Consults on Case 08/08/20 08:32 Consult Cardiology ROUTINE Primary Care Provider: SADIA GROVER Allergies Allergies No Known Drug Allergies Allergy (Verified 08/06/20 18:47) Hospital Summary - Hospital Course Hospital Course: Chief Complaint Diagnosis c/o shortness of breath and fever for 2 days Allergies Allergy/AdvReac Type Severity Reaction Status Date / Time No Known Drug Allergies Allergy Verified 08/06/20 18:47 Vital Signs (Last 24 hours) Temp Pulse Resp BP Pulse Ox 08/10/20 07:00 97.8 F 79 22 154/79 94 L 08/10/20 06:18 78 18 95 08/10/20 03:00 98.1 F 71 17 156/69 93 L 08/10/20 02:39 64 16 94 L 08/09/20 23:32 63 15 97 08/09/20 23:00 98.6 F 70 20 131/68 96 08/09/20 19:48 66 19 96 08/09/20 19:00 97.9 F 71 18 145/58 93 L 08/09/20 15:03 68 20 95 08/09/20 15:00 70 22 128/68 95 Home Medications Medication Instructions Recorded Confirmed Last Taken Type Azithromycin [Zithromax] 500 mg PO DAILY #3 tablet 08/10/20 Unknown Rx Metoprolol Tartrate 50 mg 50 mg PO Q12HT #60 tablet 08/10/20 Unknown Rx [Lopressor 50 MG] Current Medications Discontinued Medications Generic Name Dose Route Start Last Admin Trade Name Freq PRN Reason Stop Dose Admin Acetaminophen 500 mg 08/06/20 13:52 08/06/20 13:55 Tylenol Extra Strength 500 Mg PO 08/06/20 13:53 500 mg STAT STA Administration Acetaminophen Confirm 08/06/20 13:52 Tylenol Extra Strength 500 Mg Administered 08/06/20 13:53 Dose 500 mg .ROUTE .STK-MED ONE Acetaminophen 650 mg 08/06/20 19:50 08/08/20 12:21 Tylenol 325 Mg PO 09/05/20 19:49 650 mg Q4H PRN PRN Administration PAIN AND/OR FEVER Acetaminophen Confirm 08/06/20 19:52 Tylenol 325 Mg Administered 08/06/20 19:53 Dose 650 mg .ROUTE .STK-MED ONE Albuterol Sulfate 2.5 mg 08/07/20 07:27 Proventil 2.5 Mg/3 Ml Neb IH 09/06/20 07:26 Q6H PRN PRN SHORTNESS OF BREATH/WHEEZING Albuterol/Ipratropium 3 ml 08/06/20 19:00 08/10/20 06:16 Duoneb 0.5-3 Mg/3 Ml Neb IH 09/05/20 18:59 3 ml Q4HRT SIMBA Administration Albuterol/Ipratropium Confirm 08/06/20 17:35 Duoneb 0.5-3 Mg/3 Ml Neb Administered 08/06/20 17:36 Dose 3 ml IH .STK-MED ONE Apixaban 2.5 mg 08/07/20 22:00 Eliquis 2.5 Mg Tablet PO 08/07/20 22:01 ONCE ONE Apixaban 2.5 mg 08/06/20 22:00 08/06/20 21:39 Eliquis 2.5 Mg Tablet PO 08/06/20 22:01 2.5 mg ONCE ONE Administration Apixaban 2.5 mg 08/07/20 10:00 08/10/20 08:17 Eliquis 2.5 Mg Tablet PO 09/06/20 09:59 2.5 mg BID SIMBA Administration Diltiazem HCl 10 mg 08/08/20 00:22 08/08/20 00:37 Cardizem Iv 50 Mg/10 Ml IV 08/08/20 00:23 10 mg STAT ONE Administration Diltiazem HCl 120 mg 08/08/20 10:00 08/10/20 08:18 Cardizem Cd 120 Mg PO 09/07/20 09:59 120 mg DAILY SIMBA Administration Diltiazem HCl 120 mg 08/08/20 00:24 08/08/20 00:37 Cardizem Cd 120 Mg PO 08/08/20 00:25 120 mg NOW ONE Administration Diltiazem HCl Confirm 08/08/20 00:23 Cardizem Cd 120 Mg Administered 08/08/20 00:24 Dose 120 mg .ROUTE .STK-MED ONE Famotidine 20 mg 08/06/20 22:00 08/06/20 21:35 Pepcid 20 Mg Vial IV 09/05/20 21:59 20 mg Q12HT SIMBA Administration Famotidine 20 mg 08/07/20 10:00 08/10/20 08:18 Pepcid 20 Mg PO 09/06/20 09:59 20 mg BID SIMBA Administration Fentanyl Citrate 25 mcg 08/06/20 18:20 08/10/20 08:35 Sublimaze 100 Mcg/2 Ml IV 08/11/20 18:19 25 mcg Q6H PRN PRN Administration SEVERE PAIN Folic Acid 1 mg 08/07/20 10:00 08/10/20 08:18 Folate 1 Mg PO 09/06/20 09:59 1 mg DAILY SIMBA Administration Furosemide 40 mg 08/06/20 13:28 08/06/20 13:46 Lasix 40 Mg/4 Ml IV 08/06/20 13:29 40 mg STAT ONE Administration Furosemide Confirm 08/06/20 13:43 Lasix 40 Mg/4 Ml Administered 08/06/20 13:44 Dose 40 mg .ROUTE .STK-MED ONE Furosemide 40 mg 08/06/20 17:12 08/10/20 08:19 Lasix 40 Mg/4 Ml IV 09/05/20 17:11 40 mg BID DIURETIC SIMBA Administration Gabapentin 200 mg 08/06/20 22:00 08/09/20 21:18 Neurontin 100 Mg PO 09/05/20 21:59 200 mg HS SIMBA Administration Gabapentin 100 mg 08/07/20 10:00 08/10/20 08:19 Neurontin 100 Mg PO 09/06/20 09:59 100 mg DAILY SIMBA Administration Sodium Chloride 1,000 mls @ 50 mls/hr 08/06/20 13:30 08/06/20 13:46 Sodium Chloride 0.9% 1000 Ml IV 09/05/20 13:29 50 mls/hr .Q20H SIMBA Administration Ceftriaxone Sodium 500 mg/ 100 mls @ 100 mls/hr 08/06/20 14:23 08/06/20 15:35 Sodium Chloride IV 08/06/20 15:22 Not Given STAT ONE Azithromycin 500 mg in 250 mls @ 250 mls/hr 08/06/20 14:23 08/06/20 16:08 Zithromax 500 Mg/ 250 Ml Nacl Premix IV 08/06/20 15:22 250 mls/hr STAT STA 250 mls/hr Administration Ceftriaxone Sodium/Dextrose 1 g in 50 mls @ 100 mls/hr 08/06/20 15:36 08/06/20 16:14 Rocephin 1 Gm-D5w 50 Ml Bag IV 08/06/20 16:05 Infused STAT STA Infusion Ceftriaxone Sodium/Dextrose Confirm 08/06/20 15:34 Rocephin 1 Gm-D5w 50 Ml Bag Administered 08/06/20 15:35 Dose 1 g in 50 mls @ ud IV .STK-MED ONE Azithromycin Confirm 08/06/20 16:07 Zithromax 500 Mg/ 250 Ml Nacl Premix Administered 08/06/20 16:08 Dose 500 mg in 250 mls @ ud IV .STK-MED ONE Sodium Chloride Confirm 08/06/20 13:43 Sodium Chloride 0.9% 1000 Ml Administered 08/06/20 13:44 Dose 1,000 mls @ ud .ROUTE .STK-MED ONE Sodium Chloride 1,000 mls @ 50 mls/hr 08/06/20 17:12 08/09/20 06:50 Sodium Chloride 0.9% 1000 Ml IV 09/05/20 17:11 50 mls/hr .Q20H SIMBA Administration Azithromycin 500 mg in 250 mls @ 250 mls/hr 08/07/20 10:00 08/10/20 08:19 Zithromax 500 Mg/ 250 Ml Nacl Premix IV 09/06/20 09:59 250 mls/hr Q24H10 SIMBA Administration Ceftriaxone Sodium/Dextrose 1 g in 50 mls @ 100 mls/hr 08/07/20 10:00 08/10/20 08:19 Rocephin 1 Gm-D5w 50 Ml Bag IV 09/06/20 09:59 100 mls/hr Q24H10 SIMBA Administration Diltiazem HCl 100 mls @ 5 mls/hr 08/08/20 08:31 08/08/20 22:43 Cardizem Drip 100 Mg/100 Ml D5w IV 09/07/20 08:30 2 mg/hr .Q20H PRN 2 mls/hr HEART RATE/ A-FIB Administration Protocol 5 MG/HR Potassium Chloride 20 meq in 100 mls @ 50 mls/hr 08/09/20 07:00 08/09/20 08:41 Potassium Chloride 20 Meq In Water 100ml IV 08/09/20 10:59 50 mls/hr Q2H SIMBA Administration Insulin Human Lispro 0 unit 08/06/20 17:12 Humalog SQ 09/05/20 17:11 UD PRN HYPERGLYCEMIA Insulin Human Regular 0 unit 08/06/20 17:12 08/10/20 06:58 Humulin R SQ 09/05/20 17:11 2 unit UD PRN Administration HYPERGLYCEMIA Magnesium Oxide 400 mg 08/06/20 22:00 08/10/20 08:18 Mag-Ox 400 PO 09/05/20 21:59 400 mg BID SIMBA Administration Methylprednisolone Sodium Succinate 80 mg 08/06/20 18:00 08/10/20 06:36 Solu-Medrol 125 Mg IV 09/05/20 17:59 80 mg Q6HT SIMBA Administration Metoprolol Tartrate 50 mg 08/07/20 10:00 08/08/20 08:17 Lopressor 50 Mg PO 09/06/20 09:59 50 mg DAILY SIMBA Administration Metoprolol Tartrate 50 mg 08/08/20 22:00 08/10/20 08:18 Lopressor 50 Mg PO 09/07/20 21:59 50 mg Q12HT SIMBA Administration Miscellaneous Information 0 each 08/07/20 07:45 Medication Intervention 09/06/20 07:44 .RN TO CHECK WITH PT SIMBA Ondansetron HCl 4 mg 08/06/20 19:42 08/06/20 19:47 Zofran 4 Mg/2 Ml Vial IV 09/05/20 19:41 4 mg Q4H PRN PRN Administration NAUSEA/VOMITING Ondansetron HCl Confirm 08/06/20 19:44 Zofran 4 Mg/2 Ml Vial Administered 08/06/20 19:45 Dose 4 mg .ROUTE .STK-MED ONE Pantoprazole Sodium 40 mg 08/07/20 10:00 08/10/20 08:17 Protonix 40mg Tablet PO 09/06/20 09:59 40 mg DAILY SIMBA Administration Potassium Chloride 50 meq 08/07/20 10:00 08/10/20 08:17 Klor Con 10 Meq PO 09/06/20 09:59 50 meq DAILY SIMBA Administration Simvastatin 10 mg 08/06/20 22:00 08/09/20 21:18 Zocor 10mg PO 09/05/20 21:59 10 mg HS SIMBA Administration Intake & Output (Last 24 hours) 08/07/20 08/08/20 08/09/20 08/10/20 11:59 11:59 11:59 11:59 Intake Total 1395 1395 3337 2937 Output Total 8554 557 0990 1370 Balance -424 375 7926 1567 Weight 71 kg 74.7 kg 77.9 kg 78.7 kg Microbiology Results (Last 24 hours) 08/06/20 12:35 Blood Aerobic Culture - Pending 08/06/20 12:35 Blood Aerobic Organism ID Result 1 - Final Not Reportable 08/06/20 13:30 Blood Aerobic Culture - Pending 08/06/20 13:30 Blood Aerobic Organism ID Result 1 - Final Not Reportable 08/06/20 13:30 Blood Aerobic Organism ID Result 2 - Final Not Reportable 08/06/20 13:30 Blood Aerobic Organism ID Result 3 - Final Not Reportable 08/06/20 13:30 Blood Aerobic Organism ID Result 4 - Final Not Reportable 08/06/20 13:30 Blood Aerobic Bacterial Sensitivity - Final Not Reportable 08/06/20 12:35 Blood Blood Culture Gram Stain - Final 08/06/20 12:35 Blood Blood Culture - Preliminary GRAM NEGATIVE ID AND SENSITIVITY PENDING 08/06/20 13:30 Blood Blood Culture Gram Stain - Final 08/06/20 13:30 Blood Blood Culture - Preliminary GRAM NEGATIVE ID AND SENSITIVITY PENDING Laboratory Results (Last 24 hours) 08/10/20 08/10/20 08/09/20 07:40 06:46 20:39 Hgb 10.3 L D Hct 32.1 L Potassium POC Glucometer 228 H 279 H Crossmatch 08/09/20 08/09/20 08/09/20 16:07 13:50 07:00 Hgb Hct Potassium 3.6 D POC Glucometer 275 H Crossmatch COMPATIBLE 08/09/20 07:00 Hgb Hct Potassium POC Glucometer Crossmatch COMPATIBLE Orders (Last 24 hours) Category Date Time Status Discharge Routine Discharge 08/10/20 Ordered Discharge/Telephone Order Routine Discharge 08/10/20 Active HEMOGLOBIN AND HEMATOCRIT Routine Lab 08/10/20 07:40 Completed POCT GLUCOSE Stat Lab 08/09/20 11:11 Completed POCT GLUCOSE Stat Lab 08/09/20 16:07 Completed POCT GLUCOSE Stat Lab 08/09/20 20:39 Completed POCT GLUCOSE Stat Lab 08/10/20 06:46 Completed Potassium (Lab Test) [Potassium] Urgent Lab 08/09/20 13:50 Completed Patient Care Notes (Last 24 hours) 08/10/20 10:55 Nursing Note by NHAN MARIO DR. CALLED FOR DC ORDERS. DC MED ORDERS: INCREASE METOPROLOL 50MG FROM DAILY TO BID, STOP CARDIZEM PO, LEVAQUIN 500MG X 3 DAYS. FOLLOW-UP IN 1 WEEK, CONTINUE HOME HEALTH CARE. Initialized on 08/10/20 10:55 - END OF NOTE 08/10/20 10:33 Nursing Note by Anais Estevez I called [facility] to let them know patient went home at 1029 Initialized on 08/10/20 10:33 - END OF NOTE 08/10/20 10:27 (created 08/10/20 10:30) Nursing Note by Anais Estevez I faxed patients labs to 's office. Initialized on 08/10/20 10:30 - END OF NOTE 08/10/20 10:25 (created 08/10/20 10:31) Nursing Note by Anais Estevez I faxed patients d/c paperwork to [facility] at [phone]. Initialized on 08/10/20 10:31 - END OF NOTE 08/10/20 09:51 Physical Therapy Note by Jolie Beltran PT. UP IN CHAIR UPON P.T. ARRIVAL TO ROOM. REPORTS HE RECEIVED BLOOF TRANSFUSION LAST NIGHT AND IS TO D/C HOME THIS DATE. PT. IS TO CONT. W/ PT/OT VIA [facility]. PT. DID NOT WANT TO WALK W/ P.T. TODAY. PLAN IS FOR PT. TO CONT. REHAB VIA [facility] UPON D/C. JOLIE BELTRAN PT Initialized on 08/10/20 09:51 - END OF NOTE 08/10/20 08:51 Case Management Note by Kate Royal PATIENT CONTINUES TO DENY ANY NEEDS REGARDING DC AT THIS TIME. HE PLANS TO RETURN HOME WITH HIS FAMILY HELP AND HHC Initialized on 08/10/20 08:51 - END OF NOTE 08/09/20 12:08 Nursing Note by Anais Estevez Patient made MSOF at 12:00 pm on 08/09/20. Initialized on 08/09/20 12:08 - END OF NOTE - Vitals & Intake/Output Vital Signs: Vital Signs Temperature 97.8 F 08/10/20 07:00 Pulse Rate 79 08/10/20 07:00 Respiratory Rate 22 08/10/20 07:00 Blood Pressure 154/79 08/10/20 07:00 O2 Sat by Pulse Oximetry 94 L 08/10/20 07:00 Intake & Output: Intake & Output 08/07/20 08/08/20 08/09/20 08/10/20 11:59 11:59 11:59 11:59 Intake Total 1395 1395 3337 2937 Output Total 7966 605 0564 1370 Balance -738 608 9105 1567 Weight 71 kg 74.7 kg 77.9 kg 78.7 kg - Lab Result Diagrams: 08/10/20 07:40 08/09/20 13:50 Lab Results-Last 24 Hrs: Lab Results-Last 24 Hours 08/09/20 08/09/20 08/09/20 Range/Units 07:00 07:00 13:50 Hgb (12.5-18.0) gm/dl Hct (42-50) % Potassium 3.6 D (3.5-5.1) mmol/L POC Glucometer (74 to 106) mg/dL Crossmatch COMPATIBLE COMPATIBLE (COMPATIBLE) 08/09/20 08/09/20 08/10/20 Range/Units 16:07 20:39 06:46 Hgb (12.5-18.0) gm/dl Hct (42-50) % Potassium (3.5-5.1) mmol/L POC Glucometer 275 H 279 H 228 H (74 to 106) mg/dL Crossmatch (COMPATIBLE) 08/10/20 Range/Units 07:40 Hgb 10.3 L D (12.5-18.0) gm/dl Hct 32.1 L (42-50) % Potassium (3.5-5.1) mmol/L POC Glucometer (74 to 106) mg/dL Crossmatch (COMPATIBLE) Micro Results-Entire Visit: Microbiology 08/06/20 12:35 Aerobic Organism ID Result 1 - Final Blood Not Reportable 08/06/20 13:30 Aerobic Organism ID Result 1 - Final Blood Not Reportable Aerobic Organism ID Result 2 - Final Not Reportable Aerobic Organism ID Result 3 - Final Not Reportable Aerobic Organism ID Result 4 - Final Not Reportable Aerobic Bacterial Sensitivity - Final Not Reportable 08/06/20 12:35 Blood Culture Gram Stain - Final Blood Blood Culture - Preliminary GRAM NEGATIVE ID AND SENSITIVITY PENDING 08/06/20 13:30 Blood Culture Gram Stain - Final Blood Blood Culture - Preliminary GRAM NEGATIVE ID AND SENSITIVITY PENDING Accuchecks Date 08/10/20 Time 06:46 - Procedures and Test Procedures and Tests throughout Hospitalization: Therapy Orders & Screens 08/06/20 17:12 Oxygen Nasal Cannula 3 lpm Comment: Peak Expiratory Flow Rate BEFORE&AFTER NEB TX Comment: Before and after nebulizer treatments Reason For Exam: Respiratory Therapy Consult ROUTINE Comment: Reason For Exam: 08/06/20 17:20 Respiratory Therapy Assessment DAILY Comment: 08/06/20 18:23 RT Screen per Nursing Assess ONCE Comment: Protocol Order Physician Instructions: Greater than 3 points order RT Admission Screen Reason For Exam: Triggered on Admission Diagnosis: COPD Exacerbation Diagnosis: COPD Exacerbation Pneumonia: No Home O2: Yes Asthma: No CHF: Yes Home CPAP/BIPAP: No Home Nebs/MDI: Yes Total Points: 13 08/07/20 06:00 EKG IN AM Comment: 08/07/20 19:11 PT Eval & Treat (MD Order) ONCE Reason for Eval:: back pain, pain with movement Diagnosis: COPD Exacerbation 08/08/20 12:29 OT Eval and Treat (MD Order) ROUTINE Comment: Consulting Provider: Physician Instructions: Reason For Exam: Evaluate: Yes Treat: Yes Reason for Evaluation: increasing difficulty with ADL's Diagnosis: c/o shortness of breath and fever for 2 days Discharge Exam General Appearance: no apparent distress, alert Neurologic Exam: alert, oriented x 3, cooperative, normal mood/affect, nml cerebellar function, sensation nml, No motor deficits Eye Exam: PERRL, EOMI, eyes nml inspection Ears, Nose, Throat Exam: normal ENT inspection, pharynx normal, moist mucous membranes Neck Exam: normal inspection, non-tender, supple, full range of motion Respiratory Exam: normal breath sounds, lungs clear, No respiratory distress Cardiovascular Exam: regular rate/rhythm, normal heart sounds Gastrointestinal/Abdomen Exam: soft, No tenderness, No mass Male Genitalia Exam: deferred Rectal Exam: deferred Back Exam: normal inspection, normal range of motion, No CVA tenderness, No vertebral tenderness Extremity Exam: normal inspection, normal range of motion Skin Exam: normal color, warm, dry Final Diagnosis/Problem List - Final Discharge Diagnosis/Problem (1) Anemia Status: Chronic Priority: High Code(s): D64.9 - ANEMIA, UNSPECIFIED (2) Pneumonia Status: Resolved Code(s): J18.9 - PNEUMONIA, UNSPECIFIED ORGANISM (3) CHF (congestive heart failure), NYHA class III Status: Chronic Code(s): I50.9 - HEART FAILURE, UNSPECIFIED (4) COPD exacerbation Status: Resolved Code(s): J44.1 - CHRONIC OBSTRUCTIVE PULMONARY DISEASE W (A CUTE) EXACERBATION (5) Atrial fibrillation Status: Chronic Code(s): I48.91 - UNSPECIFIED ATRIAL FIBRILLATION (6) CAD (coronary artery disease) Status: Chronic Priority: High Code(s): I25.10 - ATHSCL HEART DISEASE OF [place] CORONARY ARTERY W/O ANG PCTRS (7) COPD (chronic obstructive pulmonary disease) Status: Chronic Priority: Medium (8) Chronic renal disease, stage 4, severely decreased glomerular filtration rate (GFR) between 15-29 mL/min/1.73 square meter Status: Chronic Code(s): N18.4 - CHRONIC KIDNEY DISEASE, STAGE 4 (SEVERE) - Discharge Discharge Date: 08/10/20 Disposition: HOME HEALTH SERVICE Condition: Stable Prescriptions: New Metoprolol Tartrate 50 mg [Lopressor 50 MG] 50 mg PO Q12HT #60 tablet Azithromycin [Zithromax] 500 mg PO DAILY #3 tablet Continue Folic Acid 1 mg PO DAILY Magnesium Oxide 400 mg [Mag-Ox 400] 400 mg PO BID Methylprednisolone 4 mg [Medrol 4 mg] 8 mg PO DAILY Gabapentin [Neurontin] 100 mg PO DAILY azaTHIOprine [Azathioprine] 75 mg PO DAILY metOLazone [Metolazone] 5 mg PO Q48H Atorvastatin Calcium [Lipitor] 10 mg PO HS Potassium Chloride [Klor-Con 10] 50 meq PO DAILY Gabapentin 200 mg PO HS Albuterol 2.5 mg/3 ml Neb [Proventil 2.5 mg/3 ml Neb] 2.5 mg IH Q6H PRN PRN neb PRN Reason: Shortness Of Breath/Wheezing Bumetanide [Bumex] 2 mg PO DAILY #30 tablet Famotidine 20 mg [Pepcid 20 MG] 20 mg PO BID #60 tablet PANTOPRAZOLE 40 mg Tablet [Protonix 40MG Tablet] 40 mg PO DAILY #30 tab Apixaban [Eliquis 2.5 mg Tablet] 2.5 mg PO BID #60 tablet Discontinued Metoprolol Tartrate 25 mg [Lopressor 25MG Tab] 50 mg PO DAILY Cephalexin Mh 500 mg [Keflex 500 mg] 500 mg PO QID Instructions: Pneumonia, Adult (DC), Exacerbation of COPD (DC) Follow up with: SADIA GROVER MD [Primary Care Provider] - 08/17/20 2:45 pm (at [facility]) Forms: Discharge Instructions
[2020-08-11 01:08] LABS: Blood Bank Reference Report See Result Note:
[2020-08-11 01:17] LABS: AB ID Interp SEE SEPARATE REPORT
== END 2020-08-10 10:29 | disposition home health service (06) | DRG 811 ==
LOC: ED 13:12 → MED SURG 17:08 → ICU 08-08 08:30
PROVIDERS: ADMIT Family Medicine; ATTEND General Practice
DX: D64.9 Anemia, unspecified (principal); J18.9 Pneumonia, unspecified organism; J44.1 Chronic obstructive pulmonary disease with (acute) exacerbation; I13.0 Hypertensive heart and chronic kidney disease with heart failure and stage 1 through stage 4 chronic kidney disease, or unspecified chronic kidney disease; N18.4 Chronic kidney disease, stage 4 (severe); I50.9 Heart failure, unspecified; I48.91 Unspecified atrial fibrillation; I25.10 Atherosclerotic heart disease of native coronary artery without angina pectoris; Z79.899 Other long term (current) drug therapy; Z79.01 Long term (current) use of anticoagulants; Z85.118 Personal history of other malignant neoplasm of bronchus and lung; E78.00 Pure hypercholesterolemia, unspecified; I25.2 Old myocardial infarction; Z86.718 Personal history of other venous thrombosis and embolism; E78.5 Hyperlipidemia, unspecified
CPT/HCPCS: 36415; 71045; 80053; 81001; 82375; 82803; 82962; 83036; 83605; 83735; 83880; 84100; 84132; 84484; 85014; 85018; 85025; 85027; 86850; 86870; 86900; 86901; 86922; 87040; 87077; 93005; 93041; 94150; 94640; 94760; 94762; 96360; 96365; 96367; 96374; 97161; 99291; G0008; P9016; U0003; 36000; 36600; 90662; 99285; J0456; J0696; J1815; J1940; J2405; J2930; J3010; J3480; A9270-GY

== ENCOUNTER 2020-08-31 16:11 | Inpatient (IN) | payer MEDICARE ==
[2020-08-31] MEDS ORDERED: MORPHINE SULFATE 2 MG INJ IV ONE (16:15)
[2020-08-31] MEDS ORDERED: Zosyn 3.375 GM Vial 3.375 GM in Sodium Chloride 100ML MINI-BAG PLUS 100 ML IV ONE (16:37)
[2020-08-31] MEDS ORDERED: VANCOMYCIN 2 GRAM/400 ML BAG 2 GM/400 ML PIGGYBACK IV ONE (16:38)
[2020-08-31] MEDS ORDERED: VANCOMYCIN 1 GRAM/200 ML BAG 1 GM/200 ML PIGGYBACK IV ONE ×2 (16:42→16:46)
[2020-08-31] MEDS ORDERED: MORPHINE SULFATE 2 MG INJ ONE (16:45)
[2020-08-31] MEDS ORDERED: Zosyn 3.375 GM Vial IV ONE (16:45)
[2020-08-31] MEDS ORDERED: Sodium Chloride 100ML MINI-BAG PLUS 100 ML IV ONE (16:46)
[2020-08-31 16:57] LABS: Appearance CLEAR (CLEAR); Bilirubin NEGATIVE (NEGATIVE); Blood SMALL Ery/ul (0-5); Glucose NEGATIVE (NEGATIVE); Hyaline Casts 0-2 /LPF (0-2); Ketones NEGATIVE (NEGATIVE); Leukocyte Esterase NEGATIVE (NEGATIVE); Mucus SLIGHT /HPF (NEGATIVE); Nitrite NEGATIVE (NEGATIVE); Protein,Urine Dip NEGATIVE (Negative); RBC 0-2 /HPF (0-2); Specific Gravity 1.006 (1.005-1.025); Urobilinogen NEGATIVE mg/dL (0-1)
[2020-08-31 17:01] LABS: Hematocrit 31.6 % (42-50); Mean Cell Volume 98.1 fl (78-100); Mean Corpuscular Hemoglobin 31.1 pg (26-32); Mean Corpuscular Hgb Concent. 31.6 g/dl (32-36); Mean Platelet Volume 9.9 fl (7.5-11.0); Platelet Count 96 K/mm3 (150-450); Red Blood Count 3.22 M/mm3 (4.1-5.6); Red Cell Distribution Width 19.7 % (11.5-14.0); White Blood Count 5.5 K/mm3 (4.0-10.5)
[2020-08-31] MEDS ORDERED: FEVERALL 650 MG PR ONE (17:05)
[2020-08-31 17:08] LABS: ALBUMIN 3.6 g/dL (3.5-5.0); ANION GAP 10.6 MEQ/L (5-15); BILIRUBIN,TOTAL 0.8 mg/dL (0.2-1.3); Calcium 8.9 mg/dL (8.4-10.2); Creatinine 1 2.29 mg/dL (0.66-1.25); EST GLOMERULAR FILTRATION RATE 29.5 ML/MIN; Potassium 3.9 mmol/L (3.5-5.1); Total Protein 7.1 g/dL (6.3-8.2)
--- NOTE | 2020-08-31 17:17 | ERPHSYRPT ---
- History of Present Illness Time Seen by Provider: 08/31/20 16:30 Source: patient Patient Subjective Stated Complaint: PT states "My lower abdomen hurts and I am shaking." Triage Nursing Assessment: PT presented alert and oriented X 3, skin pwd Pt able to speak in clear full sentences. Pt shaking intermittantly, pt holding hsi abodmen. Pt abdomen distended, rigid, pt has noted mottling on legs and arms. Physician History: Patient is a 79-year-old male presents to our ED via EMS for evaluation of distended abdomen and lower abdominal pain. Symptoms were observed today. Per EMS patient initially afebrile. However upon arrival to our ED patient was febrile. Patient has a history of chronic renal sufficiency. Per family patient's kidney function has been gradually worsening. Patient has been taking all medications as prescribed. Patient currently on Eliquis. EMS reported to us that patient also has stage II pressure ulcers bilateral buttock. Patient is alert answering questions appropriately. Pain described as an ache that is localized to the lower abdomen. Pain worse with palpation. Pain improves with rest. No history of diarrhea reported. No nausea or vomiting. Patient voices no other complaints at this time. Timing/Duration: today Severity: moderate Modifying Factors: Improves With: nothing Associated Symptoms: denies symptoms Allergies/Adverse Reactions: No Known Drug Allergies Allergy (Verified 08/06/20 18:47) Home Medications: Folic Acid 1 mg PO DAILY 01/28/15 [History] Magnesium Oxide 400 mg [Mag-Ox 400] 400 mg PO BID 04/03/15 [History] Methylprednisolone 4 mg [Medrol 4 mg] 8 mg PO DAILY 11/10/18 [History] Gabapentin [Neurontin] 100 mg PO DAILY 04/24/20 [History] azaTHIOprine [Azathioprine] 75 mg PO DAILY 04/24/20 [History] Atorvastatin Calcium [Lipitor] 10 mg PO HS 06/28/20 [History] Gabapentin 200 mg PO HS 06/28/20 [History] Potassium Chloride [Klor-Con 10] 50 meq PO DAILY 06/28/20 [History] metOLazone [Metolazone] 5 mg PO Q48H 06/28/20 [History] Hx Tetanus, Diphtheria Vaccination/Date Given: Yes Hx Influenza Vaccination/Date Given: Yes Hx Pneumococcal Vaccination/Date Given: Yes Immunizations Up to Date: Yes Travel Risk - International Travel Have you traveled outside of the country in past 3 weeks: No - Coronavirus Screening Are you exhibiting any of the following symptoms?: No Close contact with a COVID-19 positive Pt in past 14-21 Days: No - Review of Systems All Other Systems: Unable due to condition - Past Medical History Pertinent Past Medical History: Yes Neurological History: TIA ENT History: Cataracts Cardiac History: Congestive Heart Failure, Coronary Artery Disease, High Cholesterol, Hypertension, Myocardial Infarction ([place]) Respiratory History: CHF, COPD, Lung Cancer, Pneumonia Endocrine Medical History: No Pertinent History Musculoskeletal History: No Pertinent History GI Medical History: GI Bleed, Other History: Other Psycho-Social History: No Pertinent History Male Reproductive Disorders: No Pertinent History Other Medical History: kidney failure, anemia with blood transfusion, Lung cancer left upper lobe - Past Surgical History Past Surgical History: Yes Neuro Surgical History: No Pertinent History Cardiac: Cardiac Catheterization, Cardiac Stent Respiratory: No Pertinent History Gastrointestinal: Appendectomy, Hernia Repair Genitourinary: No Pertinent History Musculoskeletal: Orthopedic Surgery Male Surgical History: No Pertinent History Other Surgical History: EGD/Colonoscopy 2016,. 2019 kyphoplasty t8-t9, cardiac stent x 2. 2020-lumbar back surgery - Social History Smoking Status: Former smoker How long have you smoked: 50 yrs Exposure to second hand smoke: No Drug Use: none Patient Lives Alone: No - Nursing Vital Signs Nursing Vital Signs: Initial Vital Signs Temperature 101.8 F 08/31/20 16:22 Pulse Rate 118 H 08/31/20 16:22 Respiratory Rate 28 H 08/31/20 16:22 Blood Pressure 195/95 08/31/20 16:22 Pain Scale Pain Intensity 4 - Physical Exam General Appearance: no apparent distress, alert, other (Patient observed to have rigor. No acute respiratory distress. Patient conversant. He is alert. ) Eye Exam: PERRL/EOMI, eyes nml inspection Ears, Nose, Throat Exam: normal ENT inspection, TMs normal, pharynx normal, moist mucous membranes Neck Exam: normal inspection, non-tender, supple, full range of motion Respiratory Exam: normal breath sounds, lungs clear, airway intact, No respiratory distress, No accessory muscle use Cardiovascular Exam: regular rate/rhythm, normal heart sounds, normal peripheral pulses, capillary refill <2 sec Gastrointestinal/Abdomen Exam: soft, normal bowel sounds, tenderness, distention, guarding, No mass Back Exam: normal inspection, normal range of motion, No CVA tenderness, No vertebral tenderness Extremity Exam: normal inspection, normal range of motion, pelvis stable, other (2+ pitting edema bilaterally.) Neurologic Exam: alert, oriented x 3, cooperative, normal mood/affect, nml cerebellar function, nml station & gait, sensation nml, No motor deficits Skin Exam: normal color, warm, dry, No rash Lymphatic Exam: No adenopathy SpO2: 100 O2 Delivery: Nasal Cannula (4 L nasal cannula.) - Course Nursing assessment & vital signs reviewed: Yes - Radiology Exams Chest X-ray Interpretation: Teleradiologist Report (Page portable chest x-ray demonstrating left lower lung infiltrate versus atelectasis, chronic lung markings and calcific granulomas left hemithorax calcified pleural thickening borderline cardiomegaly osteopenia Bony degenerative changes T9/L1 kyphoplasty) - CT Exams Abdomen/Pelvis CT Interpretation: Tele-radiologist Report (Use fecal stasis, diverticulosis, multilevel thoracolumbar and plate fractures, osteopenia, degenerative changes, patchy sclerosis throughout axial spine possible metastasis table extensive left hemithorax calcified pleural plaquing, extensive scattered atherosclerotic disease and old granulomatous ) Ordered Tests: Active Orders 24 hr Category Date Time Status Lead C Developer STAT Care 08/31/20 16:50 Active EKG-ER Only STAT Care 08/31/20 16:15 Active IV Insertion STAT Care 08/31/20 16:15 Active Pulse Oximetry (ED) STAT Care 08/31/20 16:50 Active ABDOMEN AND PELVIS W/0 CONTRAS [CT] Stat Exams 08/31/20 16:16 Completed CHEST 1 VIEW (PORTABLE) Stat Exams 08/31/20 16:49 Completed BLOOD CULTURE Stat Lab 08/31/20 16:35 Received CBC W DIFF Stat Lab 08/31/20 16:45 Completed CMP Stat Lab 08/31/20 16:45 Completed INFLUENZA A+B MARCO Stat Lab 08/31/20 18:15 Completed LIPASE Stat Lab 08/31/20 16:45 Completed Lactic Acid Stat Lab 08/31/20 16:15 Completed Manual Differential NC Stat Lab 08/31/20 16:45 Completed TROPONIN Q3H Lab 08/31/20 16:45 Completed TROPONIN Q3H Lab 08/31/20 19:15 Ordered TROPONIN Q3H Lab 08/31/20 22:15 Ordered TROPONIN Q3H Lab 09/01/20 01:15 Ordered TROPONIN Q3H Lab 09/01/20 04:15 Ordered UA W/RFX UR CULTURE Stat Lab 08/31/20 16:22 Completed Medication Summary Discontinued Medications Generic Name Dose Route Start Last Admin Trade Name Freq PRN Reason Stop Dose Admin Acetaminophen 650 mg 08/31/20 17:05 08/31/20 17:09 [place] 650 Mg MA 08/31/20 17:06 650 mg STAT ONE Administration Piperacillin Sod/Tazobactam 100 mls @ 200 mls/hr 08/31/20 16:37 08/31/20 17:00 Sod 3.375 gm/ Sodium Chloride IV 08/31/20 17:06 200 mls/hr STAT ONE Administration Vancomycin HCl 2 gm in 400 mls @ 133.333 mls/hr 08/31/20 16:38 08/31/20 17:51 Vancomycin 2 Gram/400 Ml Bag IV 08/31/20 19:37 Not Given STAT ONE Vancomycin HCl 1 gm in 200 mls @ 125 mls/hr 08/31/20 16:42 08/31/20 17:46 Vancomycin 1 Gram/200 Ml Bag IV 08/31/20 18:17 125 mls/hr STAT ONE 125 mls/hr Administration Sodium Chloride Confirm 08/31/20 16:46 Sodium Chloride 100ml Mini-Bag Plus Administered 08/31/20 16:47 Dose 100 mls @ ud IV .STK-MED ONE Vancomycin HCl Confirm 08/31/20 16:46 Vancomycin 1 Gram/200 Ml Bag Administered 08/31/20 16:47 Dose 1 gm in 200 mls @ ud IV .STK-MED ONE Sodium Chloride 1,000 mls @ 999 mls/hr 08/31/20 17:31 08/31/20 17:47 Sodium Chloride 0.9% 1000 Ml IV 08/31/20 18:31 999 mls/hr .Q1H1M STA Administration Sodium Chloride Confirm 08/31/20 17:46 Sodium Chloride 0.9% 1000 Ml Administered 08/31/20 17:47 Dose 1,000 mls @ ud .ROUTE .STK-MED ONE Morphine Sulfate 2 mg 08/31/20 16:15 08/31/20 17:01 Morphine Sulfate 2 Mg Inj IV 08/31/20 16:16 2 mg STAT ONE Administration Morphine Sulfate Confirm 08/31/20 16:45 Morphine Sulfate 2 Mg Inj Administered 08/31/20 16:46 Dose 2 mg .ROUTE .STK-MED ONE Piperacillin Sod/Tazobactam Sod Confirm 08/31/20 16:45 Zosyn 3.375 Gm Vial Administered 08/31/20 16:46 Dose 3.375 gm IV .STK-MED ONE Lab/Rad Data: Laboratory Result Diagrams 08/31/20 16:45 08/31/20 16:45 Laboratory Results 08/31/20 08/31/20 08/31/20 Range/Units 18:15 17:30 16:45 WBC (4.0-10.5) K/mm3 RBC (4.1-5.6) M/mm3 Hgb (12.5-18.0) gm/dl Hct (42-50) % MCV (78-100) fl MCH (26-32) pg MCHC (32-36) g/dl RDW (11.5-14.0) % Plt Count (150-450) K/mm3 MPV (7.5-11.0) fl Sodium (137-145) mmol/L Potassium (3.5-5.1) mmol/L Chloride (98-107) mmol/L Carbon Dioxide (22-30) mmol/L Anion Gap (5-15) MEQ/L BUN (9-20) mg/dL Creatinine (0.66-1.25) mg/dL Estimated GFR ML/MIN Glucose (74-106) mg/dL Lactic Acid (0.4-2.0) Calcium (8.4-10.2) mg/dL Total Bilirubin (0.2-1.3) mg/dL AST (17-59) U/L ALT (0-50) U/L Alkaline Phosphatase (38-126) U/L Troponin I (0.000-0.034) ng/mL Serum Total Protein (6.3-8.2) g/dL Albumin (3.5-5.0) g/dL Lipase (23-300) U/L Urine Color (YELLOW) Urine Appearance (CLEAR) Urine pH (5-6) Ur Specific [place] (1.005-1.025) Urine Protein (Negative) Urine Ketones (NEGATIVE) Urine Blood (0-5) Marcelino/ul Urine Nitrite (NEGATIVE) Urine Bilirubin (NEGATIVE) Urine Urobilinogen (0-1) mg/dL Ur Leukocyte Esterase (NEGATIVE) Urine WBC (Auto) (0-5) /HPF Urine RBC (Auto) (0-2) /HPF U Hyaline Cast (Auto) (0-2) /LPF U Epithel Cells (Auto) (FEW) /HPF Urine Bacteria (Auto) (NEGATIVE) /HPF Urine Mucus (Auto) (NEGATIVE) /HPF Urine Culture Reflexed (NO) Urine Glucose (NEGATIVE) mg/dL Influenza Type A Ag NEGATIVE (NEGATIVE) Influenza Type B Ag POSITIVE (NEGATIVE) SARS-CoV-2 (PCR) NEGATIVE (NEGATIVE) ABO Group A Rh Factor POSITIVE Antibody Screen POSITIVE (NEGATIVE) 08/31/20 08/31/20 08/31/20 Range/Units 16:45 16:45 16:45 WBC 5.5 (4.0-10.5) K/mm3 RBC 3.22 L (4.1-5.6) M/mm3 Hgb 10.0 L (12.5-18.0) gm/dl Hct 31.6 L (42-50) % MCV 98.1 (78-100) fl MCH 31.1 (26-32) pg MCHC 31.6 L (32-36) g/dl RDW 19.7 H (11.5-14.0) % Plt Count 96 L (150-450) K/mm3 MPV 9.9 (7.5-11.0) fl Sodium 136 L (137-145) mmol/L Potassium 3.9 (3.5-5.1) mmol/L Chloride 91 L (98-107) mmol/L Carbon Dioxide 38 H (22-30) mmol/L Anion Gap 10.6 (5-15) MEQ/L BUN 49 H (9-20) mg/dL Creatinine 2.29 H (0.66-1.25) mg/dL Estimated GFR 29.5 ML/MIN Glucose 160 H (74-106) mg/dL Lactic Acid (0.4-2.0) Calcium 8.9 (8.4-10.2) mg/dL Total Bilirubin 0.80 (0.2-1.3) mg/dL AST 111 H (17-59) U/L ALT 48 (0-50) U/L Alkaline Phosphatase 212 H (38-126) U/L Troponin I 0.058 H* (0.000-0.034) ng/mL Serum Total Protein 7.1 (6.3-8.2) g/dL Albumin 3.6 (3.5-5.0) g/dL Lipase 34 (23-300) U/L Urine Color (YELLOW) Urine Appearance (CLEAR) Urine pH (5-6) Ur Specific [place] (1.005-1.025) Urine Protein (Negative) Urine Ketones (NEGATIVE) Urine Blood (0-5) Marcelino/ul Urine Nitrite (NEGATIVE) Urine Bilirubin (NEGATIVE) Urine Urobilinogen (0-1) mg/dL Ur Leukocyte Esterase (NEGATIVE) Urine WBC (Auto) (0-5) /HPF Urine RBC (Auto) (0-2) /HPF U Hyaline Cast (Auto) (0-2) /LPF U Epithel Cells (Auto) (FEW) /HPF Urine Bacteria (Auto) (NEGATIVE) /HPF Urine Mucus (Auto) (NEGATIVE) /HPF Urine Culture Reflexed (NO) Urine Glucose (NEGATIVE) mg/dL Influenza Type A Ag (NEGATIVE) Influenza Type B Ag (NEGATIVE) SARS-CoV-2 (PCR) (NEGATIVE) ABO Group Rh Factor Antibody Screen (NEGATIVE) 08/31/20 08/31/20 Range/Units 16:22 16:15 WBC (4.0-10.5) K/mm3 RBC (4.1-5.6) M/mm3 Hgb (12.5-18.0) gm/dl Hct (42-50) % MCV (78-100) fl MCH (26-32) pg MCHC (32-36) g/dl RDW (11.5-14.0) % Plt Count (150-450) K/mm3 MPV (7.5-11.0) fl Sodium (137-145) mmol/L Potassium (3.5-5.1) mmol/L Chloride (98-107) mmol/L Carbon Dioxide (22-30) mmol/L Anion Gap (5-15) MEQ/L BUN (9-20) mg/dL Creatinine (0.66-1.25) mg/dL Estimated GFR ML/MIN Glucose (74-106) mg/dL Lactic Acid 3.0 H (0.4-2.0) Calcium (8.4-10.2) mg/dL Total Bilirubin (0.2-1.3) mg/dL AST (17-59) U/L ALT (0-50) U/L Alkaline Phosphatase (38-126) U/L Troponin I (0.000-0.034) ng/mL Serum Total Protein (6.3-8.2) g/dL Albumin (3.5-5.0) g/dL Lipase (23-300) U/L Urine Color YELLOW (YELLOW) Urine Appearance CLEAR (CLEAR) Urine pH 7.0 (5-6) Ur Specific [place] 1.006 (1.005-1.025) Urine Protein NEGATIVE (Negative) Urine Ketones NEGATIVE (NEGATIVE) Urine Blood SMALL (0-5) Marcelino/ul Urine Nitrite NEGATIVE (NEGATIVE) Urine Bilirubin NEGATIVE (NEGATIVE) Urine Urobilinogen NEGATIVE (0-1) mg/dL Ur Leukocyte Esterase NEGATIVE (NEGATIVE) Urine WBC (Auto) NONE (0-5) /HPF Urine RBC (Auto) 0-2 (0-2) /HPF U Hyaline Cast (Auto) 0-2 (0-2) /LPF U Epithel Cells (Auto) NONE (FEW) /HPF Urine Bacteria (Auto) NONE (NEGATIVE) /HPF Urine Mucus (Auto) SLIGHT (NEGATIVE) /HPF Urine Culture Reflexed NO (NO) Urine Glucose NEGATIVE (NEGATIVE) mg/dL Influenza Type A Ag (NEGATIVE) Influenza Type B Ag (NEGATIVE) SARS-CoV-2 (PCR) (NEGATIVE) ABO Group Rh Factor Antibody Screen (NEGATIVE) - Progress Progress: improved Progress Note: 08/31/20 18:49 Patient reassessed. He feels much better. Pain improved. CT negative for acute intra-abdominal pathology. Covid negative. Flu be positive. Patient meets sepsis criteria. We will admit for further evaluation and treatment. Case discussed with his primary care physician who accepts admission to observation. Plan of care discussed with patient. He agrees to admission to [facility] for further evaluation and treatment. Discussed with : Héctor Will see patient in: hospital (observation) Counseled pt/family regarding: lab results, diagnosis, rad results - Departure Departure Disposition: Observation Clinical Impression: Fever, Renal insufficiency, Lung granuloma, Vascular calcification, Osteopenia, Arthritis of spine, Spine fracture, Elevated troponin, Thrombocytopenia, Normocytic anemia, Influenza B Condition: Stable Critical Care Time: No Referrals: SADIA GROVER MD [Primary Care Provider] -
--- NOTE | 2020-08-31 17:18 | XRAY ---
Indication: Abdomen distention. History of lung carcinoma. Multiple contiguous axial images obtained through the abdomen and pelvis without contrast as ordered. Comparison: CT abdomen September 27, 2019. Lung bases again demonstrates minimal scattered atelectasis/scarring and extensive left lung calcified pleural plaquing. Incidental right perihilar calcified granulomas not previously imaged. Heart remains borderline enlarged. Noncontrasted stomach and bowel loops are nonobstructed. Appendectomy reported. There remains mild diffuse fecal debris throughout, less than before. Scattered sigmoid diverticulosis without diverticulitis. Urinary bladder empty with Nuno catheter in situ. No free fluid/air. Stable hepatic/splenic calcified granulomas. Remaining liver, gallbladder, pancreas, spleen, adrenal glands, kidneys, and ureters are unremarkable for noncontrast exam. Stable extensive scattered vascular calcifications including both renal arteries. No AAA. Osseous structures again demonstrates osteopenia and mild degenerative changes throughout the spine. New multilevel thoracolumbar endplate fractures with new T9/L1/L3 kyphoplasty. 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 Impression: 1. Again diffuse fecal stasis less than before. Sigmoid diverticulosis without diverticulitis. 2. New multilevel thoracolumbar endplate fractures with new T9/L1/L3 kyphoplasty previously documented. 3. Continued osteopenia and degenerative changes throughout the spine. Also grossly stable subtle patchy sclerosis throughout axial spine, possibly metastasis. 4. Stable extensive left hemithorax calcified pleural plaquing, extensive scattered arteriosclerotic disease, and old granulomatous disease.
--- NOTE | 2020-08-31 17:21 | XRAY ---
Indication: Abdomen distention. History of lung carcinoma. Comparison: August 07, 2020. Portable chest unchanged again demonstrating left lower lung infiltrate/atelectasis, chronic lung markings, calcific granulomas, left hemithorax calcified pleural plaquing, borderline cardiomegaly, osteopenia, bony degenerative changes, and T9/L1 kyphoplasty. New cardiopulmonary abnormalities.
[2020-08-31] MEDS ORDERED: Sodium Chloride 0.9% 1000 ML 1,000 ML IV STA (17:31)
[2020-08-31] MEDS ORDERED: Sodium Chloride 0.9% 1000 ML 1,000 ML ONE (17:46)
[2020-08-31 17:59] LABS: ABO TYPING A; RH TYPING POSITIVE
[2020-08-31 18:01] LABS: Antibody Screen POSITIVE (NEGATIVE)
[2020-08-31 18:33] LABS: INFLUENZA A NEGATIVE (NEGATIVE)
[2020-08-31 18:35] LABS: INFLUENZA B POSITIVE (NEGATIVE)
[2020-08-31 20:49] LABS: Lymphocytes 7 % (24-44); Monocyte 2 % (0.0-12.0); Neutrophils 91 % (36.-66.); Platelet Estimate NORMAL (NORMAL); Total Cells Counted 100; Toxic Granulation 1+
[2020-08-31] MEDS ORDERED: PROVENTIL 2.5 MG/3 ML NEB IH ONE (21:06)
[2020-08-31] MEDS: PROVENTIL 2.5 MG/3 ML NEB IH PRN (21:12)
[2020-08-31] MEDS ORDERED: Klor Con 10 MEQ PO SCH (22:00)
[2020-08-31] MEDS ORDERED: BUMEX 1 MG PO SCH (22:00)
[2020-08-31] MEDS: ELIQUIS 2.5 MG TABLET PO SCH (22:26)
[2020-08-31] MEDS: MAG-OX 400 PO SCH (22:28)
[2020-08-31] MEDS: Lopressor 50 MG PO SCH ×2 (22:28→22:48)
[2020-08-31] MEDS: Neurontin 100 MG PO SCH (22:28)
[2020-08-31] MEDS: Pepcid 20 MG PO SCH (22:29)
[2020-08-31] MEDS: Zocor 10MG PO SCH (22:29)
[2020-09-01 05:00] LABS: Absolute Neutrophil Ct (ANC) 5.02 (1.4-6.9); BASOPHIL % 0.2 % (0.0-0.4); Basophil (Absolute #) 0.01 (0-0.4); Eosinophil (Absolute #) 0 (0-0.5); Hematocrit 23.9 % (42-50); Hemoglobin 7.6 gm/dl (12.5-18.0); Lymphocyte (Absolute #) 0.24 (1.0-4.6); Lymphocytes % 4.2 % (24.0-44.0); Mean Cell Volume 98.8 fl (78-100); Mean Corpuscular Hemoglobin 31.4 pg (26-32); Mean Corpuscular Hgb Concent. 31.8 g/dl (32-36); Mean Platelet Volume 9.7 fl (7.5-11.0); Monocyte (Absolute #) 0.45 (0.0-1.3); Monocytes % 7.9 % (0.0-12.0); Neutrophil % 87.7 % (36.0-66.0); Platelet Count 71 K/mm3 (150-450); Red Blood Count 2.42 M/mm3 (4.1-5.6); Red Cell Distribution Width 19.5 % (11.5-14.0); White Blood Count 5.7 K/mm3 (4.0-10.5)
[2020-09-01 05:21] LABS: ALBUMIN 2.2 g/dL (3.5-5.0); ANION GAP 7.2 MEQ/L (5-15); BILIRUBIN,TOTAL 0.5 mg/dL (0.2-1.3); Calcium 7.6 mg/dL (8.4-10.2); Creatinine 1 1.98 mg/dL (0.66-1.25); EST GLOMERULAR FILTRATION RATE 34.9 ML/MIN; Potassium 3.4 mmol/L (3.5-5.1); Total Protein 4.5 g/dL (6.3-8.2)
[2020-09-01 05:56] LABS: TROPONIN 0.04 ng/mL (0.000-0.034)
[2020-09-01] MEDS ORDERED: METOLAZONE 2.5 MG PO SCH (07:45)
[2020-09-01] MEDS ORDERED: MEDICATION INTERVENTION MC SCH (08:15)
[2020-09-01] MEDS ORDERED: Venofer 100 MG/5 ML IV SCH (08:45)
[2020-09-01] MEDS: Pepcid 20 MG PO SCH ×2 (08:48→21:54)
[2020-09-01] MEDS: Neurontin 100 MG PO SCH ×2 (08:48→21:54)
[2020-09-01] MEDS: MAG-OX 400 PO SCH ×2 (08:48→21:54)
[2020-09-01] MEDS: Lopressor 50 MG PO SCH ×2 (08:48→21:54)
[2020-09-01] MEDS: Klor Con 10 MEQ PO SCH ×2 (08:49→21:54)
[2020-09-01] MEDS: FOLATE 1 MG PO SCH (08:49)
[2020-09-01] MEDS: MEDROL 4 MG PO SCH (08:49)
[2020-09-01] MEDS: Zaroxolyn 2.5 MG PO SCH (08:49)
[2020-09-01] MEDS: BUMEX 1 MG PO SCH ×2 (08:50→16:43)
[2020-09-01] MEDS: Protonix 40MG Tablet PO SCH (08:50)
[2020-09-01] MEDS: ELIQUIS 2.5 MG TABLET PO SCH ×2 (08:50→21:54)
[2020-09-01] MEDS ORDERED: VENOFER IV ONE (09:00)
[2020-09-01] MEDS ORDERED: D5W MINI IV ONE (09:00)
[2020-09-01] MEDS ORDERED: AZATHIOPRINE 75 MG PO SCH (10:00)
[2020-09-01] MEDS: ROCEPHIN 1 Gm-D5w 50 ml Bag** 1 G/50 ML IVPB IV SCH (11:32)
--- NOTE | 2020-09-01 16:25 | PCM.HP ---
History of Present Illness - Chief Complaint Chief Complaint: fever, shortness of breath for 2-3 days History of Present Illness: is a 79-year-old male presents to our ED via EMS for evaluation of distended abdomen and lower abdominal pain. Symptoms were observed today. Per EMS patient initially afebrile. However upon arrival to our ED patient was febrile. Patient has a history of chronic renal sufficiency. Per family patient's kidney function has been gradually worsening. Patient has been taking all medications as prescribed. Patient currently on Eliquis. EMS reported to us that patient also has stage II pressure ulcers bilateral buttock. Patient is alert answering questions appropriately. Pain described as an ache that is localized to the lower abdomen. Pain worse with palpation. Pain improves with rest. No history of diarrhea reported. No nausea or vomiting. Patient voices no other complaints at this time. - Review of Systems Constitutional: Fever, Chills, Fatigue, Malaise, Weakness Eyes: No Symptoms Ears, Nose, & Throat: No Symptoms Respiratory: Cough, Orthopnea, Short Of Breath Cardiac: No Chest Pain, No Edema, No Syncope Abdominal/Gastrointestinal: Abdominal Pain, No Nausea, No Vomiting, No Diarrhea Genitourinary Symptoms: No Dysuria Musculoskeletal: No Back Pain, No Neck Pain Skin: No Rash Neurological: No Dizziness, No Focal Weakness, No Sensory Changes Psychological: No Symptoms Endocrine: No Symptoms Hematologic/Lymphatic: No Symptoms Immunological/Allergic: No Symptoms Medications & Allergies Home Medications: Home Medication List Folic Acid 1 mg PO DAILY 01/28/15 [History Confirmed 08/31/20] Magnesium Oxide 400 mg [Mag-Ox 400] 400 mg PO BID 04/03/15 [History Confirmed 08/31/20] Methylprednisolone 4 mg [Medrol 4 mg] 8 mg PO DAILY 11/10/18 [History Confirmed 08/31/20] Gabapentin [Neurontin] 100 mg PO DAILY 04/24/20 [History Confirmed 08/31/20] azaTHIOprine [Azathioprine] 75 mg PO DAILY 04/24/20 [History Confirmed 08/31/20] Atorvastatin Calcium [Lipitor] 10 mg PO HS 06/28/20 [History Confirmed 08/31/20] Gabapentin 200 mg PO HS 06/28/20 [History Confirmed 08/31/20] Potassium Chloride [Klor-Con 10] 30 meq PO DAILY 06/28/20 [History Confirmed 08/31/20] metOLazone [Metolazone] 2.5 mg PO Q48H 06/28/20 [History Confirmed 08/31/20] Albuterol 2.5 mg/3 ml Neb [Proventil 2.5 mg/3 ml Neb] 2.5 mg IH Q6H PRN PRN neb 07/01/20 [Rx Confirmed 08/31/20] Apixaban [Eliquis 2.5 mg Tablet] 2.5 mg PO BID #60 tablet 07/01/20 [Rx Confirmed 08/31/20] Famotidine 20 mg [Pepcid 20 MG] 20 mg PO BID #60 tablet 07/01/20 [Rx Confirmed 08/31/20] PANTOPRAZOLE 40 mg Tablet [Protonix 40MG Tablet] 40 mg PO DAILY #30 tab 07/01/20 [Rx Confirmed 08/31/20] Metoprolol Tartrate 50 mg [Lopressor 50 MG] 50 mg PO Q12HT #60 tablet 08/10/20 [Rx Confirmed 08/31/20] Bumetanide [Bumex] 2 mg PO BID 08/31/20 [History Confirmed 08/31/20] Hydrocodone/Acetaminophen [Hydrocodone-Acetamin 5-325 mg] 1 each PO Q6H PRN PRN 08/31/20 [History Confirmed 08/31/20] Potassium Chloride [Klor-Con 10] 20 meq PO HS 08/31/20 [History Confirmed 08/31/20] Allergies/Adverse Reactions: Allergies Allergy/AdvReac Type Severity Reaction Status Date / Time No Known Drug Allergies Allergy Verified 08/31/20 20:38 - Past Medical History Past Medical History: Yes Neurological History: TIA ENT History: Cataracts Cardiac History: Congestive Heart Failure, Coronary Artery Disease, High Cholesterol, Hypertension, Myocardial Infarction ([place]) Respiratory History: CHF, COPD, Lung Cancer, Pneumonia Endocrine Medical History: No Pertinent History Musculoskelatal History: No Pertinent History GI Medical History: GI Bleed, Other History: Other Pyscho-Social History: No Pertinent History Male Reproductive Disorders: No Pertinent History Comment: kidney failure, anemia with blood transfusion, Lung cancer left upper lobe - Past Surgical History Past Surgical History: Yes Neuro Surgical History: No Pertinent History Cardiac History: Cardiac Catheterization, Cardiac Stent Respiratory Surgery: No Pertinent History GI Surgical History: Appendectomy, Hernia Repair Genitourinary Surgical Hx: No Pertinent History Musculskeletal Surgical Hx: Orthopedic Surgery Male Surgical History: No Pertinent History Other Surgical History: EGD/Colonoscopy 2016,. 2019 kyphoplasty t8-t9, cardiac stent x . 2019-lumbar back surgery - Social History Smoking Status: Former smoker How long have you smoked: 50 yrs Exposure to second hand smoke: No Alcohol: None Drug Use: none - Physical Exam Vital Signs: Vital Signs - 24 hr Temp Pulse Resp BP Pulse Ox 09/01/20 16:00 97.1 F 88 22 117/59 93 L 09/01/20 12:00 96.7 F 64 18 106/46 98 09/01/20 07:53 97.8 F 72 16 133/61 93 L 09/01/20 07:35 59 L 16 92 L 09/01/20 04:00 97.3 F 58 L 18 117/58 99 09/01/20 00:00 97.8 F 63 17 111/56 92 L 08/31/20 21:35 99.3 F 68 20 138/60 100 08/31/20 21:12 63 14 93 L 08/31/20 19:00 101.6 F 72 18 112/86 97 08/31/20 18:52 100 08/31/20 18:00 102 F 70 20 98/44 97 08/31/20 17:30 103.3 F 78 18 104/43 98 Oxygen-Last 24 hours Oxygen Flowrate (L/min)-RT 2 Oxygen Flowrate (L/min)-RT 4 Oxygen Flowrate (L/min)-RT 4 General Appearance: no apparent distress, alert Neurologic Exam: alert, oriented x 3, cooperative, normal mood/affect, nml cerebellar function, nml station & gait, sensation nml, No motor deficits Eye Exam: PERRL/EOMI, eyes nml inspection Ears, Nose, Throat Exam: normal ENT inspection, TMs normal, pharynx normal, moist mucous membranes Neck Exam: normal inspection, non-tender, supple, full range of motion Respiratory Exam: normal breath sounds, lungs clear, No respiratory distress Cardiovascular Exam: regular rate/rhythm, normal heart sounds, normal peripheral pulses Gastrointestinal/Abdomen Exam: soft, normal bowel sounds, No tenderness, No mass Back Exam: normal inspection, normal range of motion, No CVA tenderness, No vertebral tenderness Extremity Exam: normal inspection, normal range of motion, pelvis stable Skin Exam: normal color, warm, dry, No rash Wound Assessment: Skin/Wound Assessment Wound/Incision Assessment Start: 08/31/20 22:10 Text: Status: Active Freq: Q6H Protocol: Document 09/01/20 16:00 ODALIS (Rec: 09/01/20 16:19 [id number]) Wound/Incision Assessment Buttock Wound Assessment Shift Assessment Wound Type Pressure Ulcer Wound Stage Stage II Drainage Amount None Drainage Odor None/Absent Surrounding Tissue Slater Comment stage 2 pressure ulcers noted to bilateral butt cheeks. both sites are blanchable. barrier cream applied. remains true Wound Photo Photo Taken No Comment: already placed on chart Lymphatic Exam: No adenopathy Results - Labs Lab/Micro Results: Lab Results-Last 24 Hours 08/31/20 08/31/20 08/31/20 Range/Units 16:15 16:22 16:45 WBC (4.0-10.5) K/mm3 RBC (4.1-5.6) M/mm3 Hgb (12.5-18.0) gm/dl Hct (42-50) % MCV (78-100) fl MCH (26-32) pg MCHC (32-36) g/dl RDW (11.5-14.0) % Plt Count (150-450) K/mm3 MPV (7.5-11.0) fl Gran % (36.0-66.0) % Eos # (Auto) (0-0.5) Absolute Lymphs (auto) (1.0-4.6) Absolute Monos (auto) (0.0-1.3) Lymphocytes % (24.0-44.0) % Monocytes % (0.0-12.0) % Eosinophils % (0.00-5.0) % Basophils % (0.0-0.4) % Absolute Granulocytes (1.4-6.9) Segmented Neutrophils (36.-66.) % Lymphocytes (Manual) (24-44) % Monocytes (Manual) (0.0-12.0) % Basophils # (0-0.4) Toxic Granulation Platelet Estimate (NORMAL) RBC Morphology Sodium (137-145) mmol/L Potassium (3.5-5.1) mmol/L Chloride (98-107) mmol/L Carbon Dioxide (22-30) mmol/L Anion Gap (5-15) MEQ/L BUN (9-20) mg/dL Creatinine (0.66-1.25) mg/dL Estimated GFR ML/MIN Glucose (74-106) mg/dL Lactic Acid 3.0 H (0.4-2.0) Calcium (8.4-10.2) mg/dL Total Bilirubin (0.2-1.3) mg/dL AST (17-59) U/L ALT (0-50) U/L Alkaline Phosphatase (38-126) U/L Troponin I 0.058 H* (0.000-0.034) ng/mL Serum Total Protein (6.3-8.2) g/dL Albumin (3.5-5.0) g/dL Lipase (23-300) U/L Urine Color YELLOW (YELLOW) Urine Appearance CLEAR (CLEAR) Urine pH 7.0 (5-6) Ur Specific [place] 1.006 (1.005-1.025) Urine Protein NEGATIVE (Negative) Urine Ketones NEGATIVE (NEGATIVE) Urine Blood SMALL (0-5) Marcelino/ul Urine Nitrite NEGATIVE (NEGATIVE) Urine Bilirubin NEGATIVE (NEGATIVE) Urine Urobilinogen NEGATIVE (0-1) mg/dL Ur Leukocyte Esterase NEGATIVE (NEGATIVE) Urine WBC (Auto) NONE (0-5) /HPF Urine RBC (Auto) 0-2 (0-2) /HPF U Hyaline Cast (Auto) 0-2 (0-2) /LPF U Epithel Cells (Auto) NONE (FEW) /HPF Urine Bacteria (Auto) NONE (NEGATIVE) /HPF Urine Mucus (Auto) SLIGHT (NEGATIVE) /HPF Urine Culture Reflexed NO (NO) Urine Glucose NEGATIVE (NEGATIVE) mg/dL Influenza Type A Ag (NEGATIVE) Influenza Type B Ag (NEGATIVE) SARS-CoV-2 (PCR) (NEGATIVE) Slides for Path Review ABO Group Rh Factor Antibody Screen (NEGATIVE) 08/31/20 08/31/20 08/31/20 Range/Units 16:45 16:45 16:45 WBC 5.5 (4.0-10.5) K/mm3 RBC 3.22 L (4.1-5.6) M/mm3 Hgb 10.0 L (12.5-18.0) gm/dl Hct 31.6 L (42-50) % MCV 98.1 (78-100) fl MCH 31.1 (26-32) pg MCHC 31.6 L (32-36) g/dl RDW 19.7 H (11.5-14.0) % Plt Count 96 L (150-450) K/mm3 MPV 9.9 (7.5-11.0) fl Gran % (36.0-66.0) % Eos # (Auto) (0-0.5) Absolute Lymphs (auto) (1.0-4.6) Absolute Monos (auto) (0.0-1.3) Lymphocytes % (24.0-44.0) % Monocytes % (0.0-12.0) % Eosinophils % (0.00-5.0) % Basophils % (0.0-0.4) % Absolute Granulocytes (1.4-6.9) Segmented Neutrophils 91 H (36.-66.) % Lymphocytes (Manual) 7 L (24-44) % Monocytes (Manual) 2 (0.0-12.0) % Basophils # (0-0.4) Toxic Granulation 1+ Platelet Estimate NORMAL (NORMAL) RBC Morphology NORMAL Sodium 136 L (137-145) mmol/L Potassium 3.9 (3.5-5.1) mmol/L Chloride 91 L (98-107) mmol/L Carbon Dioxide 38 H (22-30) mmol/L Anion Gap 10.6 (5-15) MEQ/L BUN 49 H (9-20) mg/dL Creatinine 2.29 H (0.66-1.25) mg/dL Estimated GFR 29.5 ML/MIN Glucose 160 H (74-106) mg/dL Lactic Acid (0.4-2.0) Calcium 8.9 (8.4-10.2) mg/dL Total Bilirubin 0.80 (0.2-1.3) mg/dL AST 111 H (17-59) U/L ALT 48 (0-50) U/L Alkaline Phosphatase 212 H (38-126) U/L Troponin I (0.000-0.034) ng/mL Serum Total Protein 7.1 (6.3-8.2) g/dL Albumin 3.6 (3.5-5.0) g/dL Lipase 34 (23-300) U/L Urine Color (YELLOW) Urine Appearance (CLEAR) Urine pH (5-6) Ur Specific [place] (1.005-1.025) Urine Protein (Negative) Urine Ketones (NEGATIVE) Urine Blood (0-5) Marcelino/ul Urine Nitrite (NEGATIVE) Urine Bilirubin (NEGATIVE) Urine Urobilinogen (0-1) mg/dL Ur Leukocyte Esterase (NEGATIVE) Urine WBC (Auto) (0-5) /HPF Urine RBC (Auto) (0-2) /HPF U Hyaline Cast (Auto) (0-2) /LPF U Epithel Cells (Auto) (FEW) /HPF Urine Bacteria (Auto) (NEGATIVE) /HPF Urine Mucus (Auto) (NEGATIVE) /HPF Urine Culture Reflexed (NO) Urine Glucose (NEGATIVE) mg/dL Influenza Type A Ag (NEGATIVE) Influenza Type B Ag (NEGATIVE) SARS-CoV-2 (PCR) (NEGATIVE) Slides for Path Review ABO Group A Rh Factor POSITIVE Antibody Screen POSITIVE (NEGATIVE) 08/31/20 08/31/20 08/31/20 Range/Units 17:30 18:15 18:44 WBC (4.0-10.5) K/mm3 RBC (4.1-5.6) M/mm3 Hgb (12.5-18.0) gm/dl Hct (42-50) % MCV (78-100) fl MCH (26-32) pg MCHC (32-36) g/dl RDW (11.5-14.0) % Plt Count (150-450) K/mm3 MPV (7.5-11.0) fl Gran % (36.0-66.0) % Eos # (Auto) (0-0.5) Absolute Lymphs (auto) (1.0-4.6) Absolute Monos (auto) (0.0-1.3) Lymphocytes % (24.0-44.0) % Monocytes % (0.0-12.0) % Eosinophils % (0.00-5.0) % Basophils % (0.0-0.4) % Absolute Granulocytes (1.4-6.9) Segmented Neutrophils (36.-66.) % Lymphocytes (Manual) (24-44) % Monocytes (Manual) (0.0-12.0) % Basophils # (0-0.4) Toxic Granulation Platelet Estimate (NORMAL) RBC Morphology Sodium (137-145) mmol/L Potassium (3.5-5.1) mmol/L Chloride (98-107) mmol/L Carbon Dioxide (22-30) mmol/L Anion Gap (5-15) MEQ/L BUN (9-20) mg/dL Creatinine (0.66-1.25) mg/dL Estimated GFR ML/MIN Glucose (74-106) mg/dL Lactic Acid 1.0 (0.4-2.0) Calcium (8.4-10.2) mg/dL Total Bilirubin (0.2-1.3) mg/dL AST (17-59) U/L ALT (0-50) U/L Alkaline Phosphatase (38-126) U/L Troponin I (0.000-0.034) ng/mL Serum Total Protein (6.3-8.2) g/dL Albumin (3.5-5.0) g/dL Lipase (23-300) U/L Urine Color (YELLOW) Urine Appearance (CLEAR) Urine pH (5-6) Ur Specific [place] (1.005-1.025) Urine Protein (Negative) Urine Ketones (NEGATIVE) Urine Blood (0-5) Marcelino/ul Urine Nitrite (NEGATIVE) Urine Bilirubin (NEGATIVE) Urine Urobilinogen (0-1) mg/dL Ur Leukocyte Esterase (NEGATIVE) Urine WBC (Auto) (0-5) /HPF Urine RBC (Auto) (0-2) /HPF U Hyaline Cast (Auto) (0-2) /LPF U Epithel Cells (Auto) (FEW) /HPF Urine Bacteria (Auto) (NEGATIVE) /HPF Urine Mucus (Auto) (NEGATIVE) /HPF Urine Culture Reflexed (NO) Urine Glucose (NEGATIVE) mg/dL Influenza Type A Ag NEGATIVE (NEGATIVE) Influenza Type B Ag POSITIVE (NEGATIVE) SARS-CoV-2 (PCR) NEGATIVE (NEGATIVE) Slides for Path Review ABO Group Rh Factor Antibody Screen (NEGATIVE) 08/31/20 08/31/20 09/01/20 Range/Units 19:15 22:30 04:30 WBC 5.7 (4.0-10.5) K/mm3 RBC 2.42 L (4.1-5.6) M/mm3 Hgb 7.6 L D (12.5-18.0) gm/dl Hct 23.9 L (42-50) % MCV 98.8 (78-100) fl MCH 31.4 (26-32) pg MCHC 31.8 L (32-36) g/dl RDW 19.5 H (11.5-14.0) % Plt Count 71 L (150-450) K/mm3 MPV 9.7 (7.5-11.0) fl Gran % 87.7 H (36.0-66.0) % Eos # (Auto) 0 (0-0.5) Absolute Lymphs (auto) 0.24 L (1.0-4.6) Absolute Monos (auto) 0.45 (0.0-1.3) Lymphocytes % 4.2 L (24.0-44.0) % Monocytes % 7.9 (0.0-12.0) % Eosinophils % 0.0 (0.00-5.0) % Basophils % 0.2 (0.0-0.4) % Absolute Granulocytes 5.02 (1.4-6.9) Segmented Neutrophils (36.-66.) % Lymphocytes (Manual) (24-44) % Monocytes (Manual) (0.0-12.0) % Basophils # 0.01 (0-0.4) Toxic Granulation Platelet Estimate (NORMAL) RBC Morphology Sodium (137-145) mmol/L Potassium (3.5-5.1) mmol/L Chloride (98-107) mmol/L Carbon Dioxide (22-30) mmol/L Anion Gap (5-15) MEQ/L BUN (9-20) mg/dL Creatinine (0.66-1.25) mg/dL Estimated GFR ML/MIN Glucose (74-106) mg/dL Lactic Acid (0.4-2.0) Calcium (8.4-10.2) mg/dL Total Bilirubin (0.2-1.3) mg/dL AST (17-59) U/L ALT (0-50) U/L Alkaline Phosphatase (38-126) U/L Troponin I 0.056 H* 0.060 H* (0.000-0.034) ng/mL Serum Total Protein (6.3-8.2) g/dL Albumin (3.5-5.0) g/dL Lipase (23-300) U/L Urine Color (YELLOW) Urine Appearance (CLEAR) Urine pH (5-6) Ur Specific [place] (1.005-1.025) Urine Protein (Negative) Urine Ketones (NEGATIVE) Urine Blood (0-5) Marcelino/ul Urine Nitrite (NEGATIVE) Urine Bilirubin (NEGATIVE) Urine Urobilinogen (0-1) mg/dL Ur Leukocyte Esterase (NEGATIVE) Urine WBC (Auto) (0-5) /HPF Urine RBC (Auto) (0-2) /HPF U Hyaline Cast (Auto) (0-2) /LPF U Epithel Cells (Auto) (FEW) /HPF Urine Bacteria (Auto) (NEGATIVE) /HPF Urine Mucus (Auto) (NEGATIVE) /HPF Urine Culture Reflexed (NO) Urine Glucose (NEGATIVE) mg/dL Influenza Type A Ag (NEGATIVE) Influenza Type B Ag (NEGATIVE) SARS-CoV-2 (PCR) (NEGATIVE) Slides for Path Review ABO Group Rh Factor Antibody Screen (NEGATIVE) 09/01/20 Range/Units 04:30 WBC (4.0-10.5) K/mm3 RBC (4.1-5.6) M/mm3 Hgb (12.5-18.0) gm/dl Hct (42-50) % MCV (78-100) fl MCH (26-32) pg MCHC (32-36) g/dl RDW (11.5-14.0) % Plt Count (150-450) K/mm3 MPV (7.5-11.0) fl Gran % (36.0-66.0) % Eos # (Auto) (0-0.5) Absolute Lymphs (auto) (1.0-4.6) Absolute Monos (auto) (0.0-1.3) Lymphocytes % (24.0-44.0) % Monocytes % (0.0-12.0) % Eosinophils % (0.00-5.0) % Basophils % (0.0-0.4) % Absolute Granulocytes (1.4-6.9) Segmented Neutrophils (36.-66.) % Lymphocytes (Manual) (24-44) % Monocytes (Manual) (0.0-12.0) % Basophils # (0-0.4) Toxic Granulation Platelet Estimate (NORMAL) RBC Morphology Sodium 136 L (137-145) mmol/L Potassium 3.4 L (3.5-5.1) mmol/L Chloride 97 L (98-107) mmol/L Carbon Dioxide 36 H (22-30) mmol/L Anion Gap 7.2 (5-15) MEQ/L BUN 50 H (9-20) mg/dL Creatinine 1.98 H (0.66-1.25) mg/dL Estimated GFR 34.9 ML/MIN Glucose 140 H (74-106) mg/dL Lactic Acid (0.4-2.0) Calcium 7.6 L (8.4-10.2) mg/dL Total Bilirubin 0.50 (0.2-1.3) mg/dL AST 54 (17-59) U/L ALT 28 (0-50) U/L Alkaline Phosphatase 122 (38-126) U/L Troponin I 0.040 H* (0.000-0.034) ng/mL Serum Total Protein 4.5 L (6.3-8.2) g/dL Albumin 2.2 L (3.5-5.0) g/dL Lipase (23-300) U/L Urine Color (YELLOW) Urine Appearance (CLEAR) Urine pH (5-6) Ur Specific [place] (1.005-1.025) Urine Protein (Negative) Urine Ketones (NEGATIVE) Urine Blood (0-5) Marcelino/ul Urine Nitrite (NEGATIVE) Urine Bilirubin (NEGATIVE) Urine Urobilinogen (0-1) mg/dL Ur Leukocyte Esterase (NEGATIVE) Urine WBC (Auto) (0-5) /HPF Urine RBC (Auto) (0-2) /HPF U Hyaline Cast (Auto) (0-2) /LPF U Epithel Cells (Auto) (FEW) /HPF Urine Bacteria (Auto) (NEGATIVE) /HPF Urine Mucus (Auto) (NEGATIVE) /HPF Urine Culture Reflexed (NO) Urine Glucose (NEGATIVE) mg/dL Influenza Type A Ag (NEGATIVE) Influenza Type B Ag (NEGATIVE) SARS-CoV-2 (PCR) (NEGATIVE) Slides for Path Review ABO Group Rh Factor Antibody Screen (NEGATIVE) Microbiology 08/31/20 16:35 Blood Culture Gram Stain - Final Blood 08/31/20 16:35 Blood Culture Gram Stain - Final Blood - Radiology Impressions Radiology Exams & Impressions: Radiology Procedures Category Date Time Status ABDOMEN AND PELVIS W/0 CONTRAS [CT] Stat Exams 08/31/20 16:16 Completed CHEST 1 VIEW (PORTABLE) Stat Exams 08/31/20 16:49 Completed - Other Procedures and Tests Respiratory Therapy 08/31/20 21:08 Respiratory Therapy Assessment DAILY 08/31/20 21:09 Oxygen Nasal Cannula 3 lpm Peak Expiratory Flow Rate ONCE Assessment/Plan (1) Influenza B Current Visit: Yes Status: Acute Assessment & Plan: Chief Complaint Diagnosis sepsis, sec. flu Allergies Allergy/AdvReac Type Severity Reaction Status Date / Time No Known Drug Allergies Allergy Verified 08/31/20 20:38 Vital Signs (Last 24 hours) Temp Pulse Resp BP Pulse Ox 09/01/20 16:00 97.1 F 88 22 117/59 93 L 09/01/20 12:00 96.7 F 64 18 106/46 98 09/01/20 07:53 97.8 F 72 16 133/61 93 L 09/01/20 07:35 59 L 16 92 L 09/01/20 04:00 97.3 F 58 L 18 117/58 99 09/01/20 00:00 97.8 F 63 17 111/56 92 L 08/31/20 21:35 99.3 F 68 20 138/60 100 08/31/20 21:12 63 14 93 L 08/31/20 19:00 101.6 F 72 18 112/86 97 08/31/20 18:52 100 08/31/20 18:00 102 F 70 20 98/44 97 08/31/20 17:30 103.3 F 78 18 104/43 98 Home Medications Medication Instructions Recorded Confirmed Last Taken Type Bumetanide [Bumex] 2 mg PO BID 08/31/20 08/31/20 Unknown History Hydrocodone/Acetaminophen 1 each PO Q6H PRN PRN 08/31/20 08/31/20 Unknown History [Hydrocodone-Acetamin 5-325 mg] Potassium Chloride [Klor-Con 10] 20 meq PO HS 08/31/20 08/31/20 Unknown History Current Medications Generic Name Dose Route Start Last Admin Trade Name Freq PRN Reason Stop Dose Admin Hydrocodone Bitart/Acetaminophen 1 tab 08/31/20 22:00 [place] 5/325 Mg PO 09/05/20 21:59 Q6H PRN PRN PAIN Albuterol Sulfate 2.5 mg 08/31/20 21:11 08/31/20 21:12 Proventil 2.5 Mg/3 Ml Neb IH 09/30/20 21:10 2.5 mg Q6H PRN PRN Administration SHORTNESS OF BREATH/WHEEZING Apixaban 2.5 mg 08/31/20 22:00 09/01/20 08:50 Eliquis 2.5 Mg Tablet PO 09/30/20 21:59 2.5 mg BID SIMBA Administration Bumetanide 2 mg 09/01/20 10:00 09/01/20 08:50 Bumex 1 Mg PO 09/30/20 21:59 2 mg BID DIURETIC SIMBA Administration Famotidine 20 mg 08/31/20 22:00 09/01/20 08:48 Pepcid 20 Mg PO 09/30/20 21:59 20 mg BID SIMBA Administration Folic Acid 1 mg 09/01/20 10:00 09/01/20 08:49 Folate 1 Mg PO 10/01/20 09:59 1 mg DAILY SIMBA Administration Gabapentin 200 mg 08/31/20 22:00 08/31/20 22:28 Neurontin 100 Mg PO 09/30/20 21:59 200 mg HS SIMBA Administration Gabapentin 100 mg 09/01/20 10:00 09/01/20 08:48 Neurontin 100 Mg PO 10/01/20 09:59 100 mg DAILY SIMBA Administration Ceftriaxone Sodium/Dextrose 1 g in 50 mls @ 100 mls/hr 09/01/20 11:00 09/01/20 11:32 Rocephin 1 Gm-D5w 50 Ml Bag IV 10/01/20 10:59 100 mls/hr Q24H10 SIMBA Administration Magnesium Oxide 400 mg 08/31/20 22:00 09/01/20 08:48 Mag-Ox 400 PO 09/30/20 21:59 400 mg BID SIMBA Administration Methylprednisolone 8 mg 09/01/20 10:00 09/01/20 08:49 Medrol 4 Mg PO 10/01/20 09:59 8 mg DAILY SIMBA Administration Metolazone 2.5 mg 09/01/20 10:00 09/01/20 08:49 Zaroxolyn 2.5 Mg PO 10/01/20 09:59 2.5 mg Q48H SIMBA Administration Metoprolol Tartrate 50 mg 08/31/20 22:00 09/01/20 08:48 Lopressor 50 Mg PO 09/30/20 21:59 50 mg Q12HT SIMBA Administration Miscellaneous Information 0 each 09/01/20 08:15 Medication Intervention 10/01/20 08:14 .RN TO CHECK WITH PT SIMBA Pantoprazole Sodium 40 mg 09/01/20 10:00 09/01/20 08:50 Protonix 40mg Tablet PO 10/01/20 09:59 40 mg DAILY SIMBA Administration Potassium Chloride 20 meq 09/01/20 22:00 Klor Con 10 Meq PO 09/30/20 21:59 HS SIMBA Potassium Chloride 30 meq 09/01/20 10:00 09/01/20 08:49 Klor Con 10 Meq PO 10/01/20 09:59 30 meq DAILY SIMBA Administration Simvastatin 10 mg 08/31/20 22:00 08/31/20 22:29 Zocor 10mg PO 09/30/20 21:59 10 mg HS SIMBA Administration Discontinued Medications Generic Name Dose Route Start Last Admin Trade Name Freq PRN Reason Stop Dose Admin Acetaminophen 650 mg 08/31/20 17:05 08/31/20 17:09 [place] 650 Mg [place] 08/31/20 17:06 650 mg STAT ONE Administration Albuterol Sulfate Confirm 08/31/20 21:06 Proventil 2.5 Mg/3 Ml Neb Administered 08/31/20 21:07 Dose 2.5 mg IH .STK-MED ONE Bumetanide 2 mg 08/31/20 22:00 08/31/20 22:27 Bumex 1 Mg PO 09/30/20 21:59 2 mg BID SIMBA Administration Piperacillin Sod/Tazobactam 100 mls @ 200 mls/hr 08/31/20 16:37 08/31/20 17:00 Sod 3.375 gm/ Sodium Chloride IV 08/31/20 17:06 200 mls/hr STAT ONE Administration Vancomycin HCl 2 gm in 400 mls @ 133.333 mls/hr 08/31/20 16:38 08/31/20 17:51 Vancomycin 2 Gram/400 Ml Bag IV 08/31/20 19:37 Not Given STAT ONE Vancomycin HCl 1 gm in 200 mls @ 125 mls/hr 08/31/20 16:42 08/31/20 17:46 Vancomycin 1 Gram/200 Ml Bag IV 08/31/20 18:17 125 mls/hr STAT ONE 125 mls/hr Administration Sodium Chloride Confirm 08/31/20 16:46 Sodium Chloride 100ml Mini-Bag Plus Administered 08/31/20 16:47 Dose 100 mls @ ud IV .STK-MED ONE Vancomycin HCl Confirm 08/31/20 16:46 Vancomycin 1 Gram/200 Ml Bag Administered 08/31/20 16:47 Dose 1 gm in 200 mls @ ud IV .STK-MED ONE Sodium Chloride 1,000 mls @ 999 mls/hr 08/31/20 17:31 08/31/20 17:47 Sodium Chloride 0.9% 1000 Ml IV 08/31/20 18:31 999 mls/hr .Q1H1M STA Administration Sodium Chloride Confirm 08/31/20 17:46 Sodium Chloride 0.9% 1000 Ml Administered 08/31/20 17:47 Dose 1,000 mls @ ud .ROUTE .STK-MED ONE Iron Sucrose 100 mg/ Dextrose 105 mls @ 300 mls/hr 09/01/20 09:00 09/01/20 09:41 IV 09/01/20 09:20 300 mls/hr NOW ONE Administration Morphine Sulfate 2 mg 08/31/20 16:15 08/31/20 17:01 Morphine Sulfate 2 Mg Inj IV 08/31/20 16:16 2 mg STAT ONE Administration Morphine Sulfate Confirm 08/31/20 16:45 Morphine Sulfate 2 Mg Inj Administered 08/31/20 16:46 Dose 2 mg .ROUTE .STK-MED ONE Piperacillin Sod/Tazobactam Sod Confirm 08/31/20 16:45 Zosyn 3.375 Gm Vial Administered 08/31/20 16:46 Dose 3.375 gm IV .STK-MED ONE Potassium Chloride 20 meq 08/31/20 22:00 08/31/20 22:28 Klor Con 10 Meq PO 09/30/20 21:59 20 meq HS SIMBA Administration Intake & Output (Last 24 hours) 08/30/20 08/31/20 09/01/20 09/02/20 11:59 11:59 11:59 11:59 Intake Total 1246 Output Total 3000 Balance -1754 Weight 77.4 kg Microbiology Results (Last 24 hours) 08/31/20 16:35 Blood Blood Culture Gram Stain - Final 08/31/20 16:35 Blood Blood Culture - Pending 08/31/20 16:35 Blood Blood Culture Gram Stain - Final 08/31/20 16:35 Blood Blood Culture - Pending Laboratory Results (Last 24 hours) 09/01/20 09/01/20 08/31/20 04:30 04:30 22:30 WBC 5.7 RBC 2.42 L Hgb 7.6 L D Hct 23.9 L MCV 98.8 MCH 31.4 MCHC 31.8 L RDW 19.5 H Plt Count 71 L MPV 9.7 Gran % 87.7 H Eos # (Auto) 0 Absolute Lymphs (auto) 0.24 L Absolute Monos (auto) 0.45 Lymphocytes % 4.2 L Monocytes % 7.9 Eosinophils % 0.0 Basophils % 0.2 Absolute Granulocytes 5.02 Segmented Neutrophils Lymphocytes (Manual) Monocytes (Manual) Basophils # 0.01 Toxic Granulation Platelet Estimate RBC Morphology Sodium 136 L Potassium 3.4 L Chloride 97 L Carbon Dioxide 36 H Anion Gap 7.2 BUN 50 H Creatinine 1.98 H Estimated GFR 34.9 Glucose 140 H Lactic Acid Calcium 7.6 L Total Bilirubin 0.50 AST 54 ALT 28 Alkaline Phosphatase 122 Troponin I 0.040 H* 0.060 H* Serum Total Protein 4.5 L Albumin 2.2 L Lipase Urine Color Urine Appearance Urine pH Ur Specific [place] Urine Protein Urine Ketones Urine Blood Urine Nitrite Urine Bilirubin Urine Urobilinogen Ur Leukocyte Esterase Urine WBC (Auto) Urine RBC (Auto) U Hyaline Cast (Auto) U Epithel Cells (Auto) Urine Bacteria (Auto) Urine Mucus (Auto) Urine Culture Reflexed Urine Glucose Influenza Type A Ag Influenza Type B Ag SARS-CoV-2 (PCR) Slides for Path Review ABO Group Rh Factor Antibody Screen 08/31/20 08/31/20 08/31/20 19:15 18:44 18:15 WBC RBC Hgb Hct MCV MCH MCHC RDW Plt Count MPV Gran % Eos # (Auto) Absolute Lymphs (auto) Absolute Monos (auto) Lymphocytes % Monocytes % Eosinophils % Basophils % Absolute Granulocytes Segmented Neutrophils Lymphocytes (Manual) Monocytes (Manual) Basophils # Toxic Granulation Platelet Estimate RBC Morphology Sodium Potassium Chloride Carbon Dioxide Anion Gap BUN Creatinine Estimated GFR Glucose Lactic Acid 1.0 Calcium Total Bilirubin AST ALT Alkaline Phosphatase Troponin I 0.056 H* Serum Total Protein Albumin Lipase Urine Color Urine Appearance Urine pH Ur Specific [place] Urine Protein Urine Ketones Urine Blood Urine Nitrite Urine Bilirubin Urine Urobilinogen Ur Leukocyte Esterase Urine WBC (Auto) Urine RBC (Auto) U Hyaline Cast (Auto) U Epithel Cells (Auto) Urine Bacteria (Auto) Urine Mucus (Auto) Urine Culture Reflexed Urine Glucose Influenza Type A Ag NEGATIVE Influenza Type B Ag POSITIVE SARS-CoV-2 (PCR) Slides for Path Review ABO Group Rh Factor Antibody Screen 08/31/20 08/31/20 08/31/20 17:30 16:45 16:45 WBC RBC Hgb Hct MCV MCH MCHC RDW Plt Count MPV Gran % Eos # (Auto) Absolute Lymphs (auto) Absolute Monos (auto) Lymphocytes % Monocytes % Eosinophils % Basophils % Absolute Granulocytes Segmented Neutrophils Lymphocytes (Manual) Monocytes (Manual) Basophils # Toxic Granulation Platelet Estimate RBC Morphology Sodium 136 L Potassium 3.9 Chloride 91 L Carbon Dioxide 38 H Anion Gap 10.6 BUN 49 H Creatinine 2.29 H Estimated GFR 29.5 Glucose 160 H Lactic Acid Calcium 8.9 Total Bilirubin 0.80 AST 111 H ALT 48 Alkaline Phosphatase 212 H Troponin I Serum Total Protein 7.1 Albumin 3.6 Lipase 34 Urine Color Urine Appearance Urine pH Ur Specific [place] Urine Protein Urine Ketones Urine Blood Urine Nitrite Urine Bilirubin Urine Urobilinogen Ur Leukocyte Esterase Urine WBC (Auto) Urine RBC (Auto) U Hyaline Cast (Auto) U Epithel Cells (Auto) Urine Bacteria (Auto) Urine Mucus (Auto) Urine Culture Reflexed Urine Glucose Influenza Type A Ag Influenza Type B Ag SARS-CoV-2 (PCR) NEGATIVE Slides for Path Review ABO Group A Rh Factor POSITIVE Antibody Screen POSITIVE 08/31/20 08/31/20 08/31/20 16:45 16:45 16:22 WBC 5.5 RBC 3.22 L Hgb 10.0 L Hct 31.6 L MCV 98.1 MCH 31.1 MCHC 31.6 L RDW 19.7 H Plt Count 96 L MPV 9.9 Gran % Eos # (Auto) Absolute Lymphs (auto) Absolute Monos (auto) Lymphocytes % Monocytes % Eosinophils % Basophils % Absolute Granulocytes Segmented Neutrophils 91 H Lymphocytes (Manual) 7 L Monocytes (Manual) 2 Basophils # Toxic Granulation 1+ Platelet Estimate NORMAL RBC Morphology NORMAL Sodium Potassium Chloride Carbon Dioxide Anion Gap BUN Creatinine Estimated GFR Glucose Lactic Acid Calcium Total Bilirubin AST ALT Alkaline Phosphatase Troponin I 0.058 H* Serum Total Protein Albumin Lipase Urine Color YELLOW Urine Appearance CLEAR Urine pH 7.0 Ur Specific [place] 1.006 Urine Protein NEGATIVE Urine Ketones NEGATIVE Urine Blood SMALL Urine Nitrite NEGATIVE Urine Bilirubin NEGATIVE Urine Urobilinogen NEGATIVE Ur Leukocyte Esterase NEGATIVE Urine WBC (Auto) NONE Urine RBC (Auto) 0-2 U Hyaline Cast (Auto) 0-2 U Epithel Cells (Auto) NONE Urine Bacteria (Auto) NONE Urine Mucus (Auto) SLIGHT Urine Culture Reflexed NO Urine Glucose NEGATIVE Influenza Type A Ag Influenza Type B Ag SARS-CoV-2 (PCR) Slides for Path Review ABO Group Rh Factor Antibody Screen 08/31/20 16:15 WBC RBC Hgb Hct MCV MCH MCHC RDW Plt Count MPV Gran % Eos # (Auto) Absolute Lymphs (auto) Absolute Monos (auto) Lymphocytes % Monocytes % Eosinophils % Basophils % Absolute Granulocytes Segmented Neutrophils Lymphocytes (Manual) Monocytes (Manual) Basophils # Toxic Granulation Platelet Estimate RBC Morphology Sodium Potassium Chloride Carbon Dioxide Anion Gap BUN Creatinine Estimated GFR Glucose Lactic Acid 3.0 H Calcium Total Bilirubin AST ALT Alkaline Phosphatase Troponin I Serum Total Protein Albumin Lipase Urine Color Urine Appearance Urine pH Ur Specific [place] Urine Protein Urine Ketones Urine Blood Urine Nitrite Urine Bilirubin Urine Urobilinogen Ur Leukocyte Esterase Urine WBC (Auto) Urine RBC (Auto) U Hyaline Cast (Auto) U Epithel Cells (Auto) Urine Bacteria (Auto) Urine Mucus (Auto) Urine Culture Reflexed Urine Glucose Influenza Type A Ag Influenza Type B Ag SARS-CoV-2 (PCR) Slides for Path Review ABO Group Rh Factor Antibody Screen Orders (Last 24 hours) Category Date Time Status Bedrest ROUTINE Activity 08/31/20 19:22 Active Airport Operations Manager STAT Care 08/31/20 16:50 Completed Code Status Order ROUTINE Care 08/31/20 19:22 Active EKG-ER Only STAT Care 08/31/20 16:15 Completed IV Care Q6H Care 08/31/20 19:22 Active IV Insertion STAT Care 08/31/20 16:15 Completed Isolation, Initiate & Maintain Q12H Care 08/31/20 19:21 Active Neuro Checks Q4H Care 08/31/20 19:[address] in Observation ROUTINE Care 08/31/20 19:22 Active Pulse Oximetry (ED) STAT Care 08/31/20 16:50 Completed Telemetry q6h Care 08/31/20 19:22 Active ABDOMEN AND PELVIS W/0 CONTRAS [CT] Stat Exams 08/31/20 16:16 Completed CHEST 1 VIEW (PORTABLE) Stat Exams 08/31/20 16:49 Completed BLOOD CULTURE Stat Lab 08/31/20 16:35 Results CBC W DIFF AM.LAB Lab 09/01/20 04:30 Completed CBC W DIFF Stat Lab 08/31/20 16:45 Completed CMP AM.LAB Lab 09/01/20 04:30 Completed CMP Stat Lab 08/31/20 16:45 Completed INFLUENZA A+B MARCO Stat Lab 08/31/20 18:15 Completed LIPASE Stat Lab 08/31/20 16:45 Completed Lactic Acid Stat Lab 08/31/20 16:15 Completed Lactic Acid Stat Lab 08/31/20 18:44 Completed Manual Differential [place] Stat Lab 08/31/20 16:45 Completed TROPONIN AM.LAB Lab 09/01/20 04:30 Completed TROPONIN Q3H Lab 08/31/20 16:45 Completed TROPONIN Q3H Lab 08/31/20 19:15 Completed TROPONIN Q3H Lab 08/31/20 22:30 Completed TYPE AND SCREEN Stat Lab 08/31/20 16:45 Completed UA W/RFX UR CULTURE Stat Lab 08/31/20 16:22 Completed Acetaminophen 650 mg [[place] 650 mg] Med 08/31/20 17:05 Discontinued 650 mg [place] STAT ONE Albuterol 2.5 mg/3 ml Neb [Proventil 2.5 mg/3 ml Neb Med 08/31/20 21:06 Discontinued ] 2.5 mg IH .STK-MED ONE Albuterol 2.5 mg/3 ml Neb [Proventil 2.5 mg/3 ml Neb Med 08/31/20 21:11 Active ] 2.5 mg IH Q6H PRN PRN Apixaban [Eliquis 2.5 mg Tablet] Med 08/31/20 22:00 Active 2.5 mg PO BID Bumetanide 1 mg [Bumex 1 mg] Med 08/31/20 22:00 Discontinued 2 mg PO BID Bumetanide 1 mg [Bumex 1 mg] Med 09/01/20 10:00 Active 2 mg PO BID DIURETIC Ceftriaxone 1 GM/50 ML PREMIX* [ROCEPHIN 1 Gm-D5w 50 ml Med 09/01/20 11:00 Active Bag] 1 g in 50 ml IV Q24H10 Famotidine 20 mg [Pepcid 20 MG] Med 08/31/20 22:00 Active 20 mg PO BID Folic Acid 1 mg [Folate 1 mg] Med 09/01/20 10:00 Active 1 mg PO DAILY Gabapentin 100 mg [Neurontin 100 MG] Med 09/01/20 10:00 Active 100 mg PO DAILY Gabapentin 100 mg [Neurontin 100 MG] Med 08/31/20 22:00 Active 200 mg PO HS Hydrocodone/APAP 5/325 [[place] 5/325 mg] Med 08/31/20 22:00 Active 1 tab PO Q6H PRN PRN Iron Sucrose Complex 100 mg/ 5 [Venofer 100 MG/5 ML] Med 09/01/20 09:00 Discontinued 100 mg D5w 100 ml [D5w 100ML Mini Bag 100 ML] 100 ml IV NOW Magnesium Oxide 400 mg [Mag-Ox 400] Med 08/31/20 22:00 Active 400 mg PO BID Medication Intervention Med 09/01/20 08:15 Active 0 each MC .RN TO CHECK WITH PT Methylprednisolone 4 mg [Medrol 4 mg] Med 09/01/20 10:00 Active 8 mg PO DAILY Metolazone 2.5 mg [Zaroxolyn 2.5 MG] Med 09/01/20 10:00 Active 2.5 mg PO Q48H Metoprolol Tartrate 50 mg [Lopressor 50 MG] Med 08/31/20 22:00 Active 50 mg PO Q12HT Morphine Sulfate 2 mg Inj Med 08/31/20 16:45 Discontinued 2 mg .ROUTE .STK-MED ONE Morphine Sulfate 2 mg Inj Med 08/31/20 16:15 Discontinued 2 mg IV STAT ONE NaCl 0.9% 100 ml Mini-Bag Plus [Sodium Chloride 100ML Med 08/31/20 16:46 Discontinued MINI-BAG PLUS] 100 ml IV UD NaCl 0.9% 1000 ml [Sodium Chloride 0.9% 1000 ML] 1,000 Med 08/31/20 17:46 Discontinued ml .ROUTE UD NaCl 0.9% 1000 ml [Sodium Chloride 0.9% 1000 ML] 1,000 Med 08/31/20 17:31 Discontinued ml IV 999 mls/hr PANTOPRAZOLE 40 mg Tablet [Protonix 40MG Tablet] Med 09/01/20 10:00 Active 40 mg PO DAILY Piperacillin/Tazobactam 3.375G [Zosyn 3.375 GM Vial] Med 08/31/20 16:45 Discontinued 3.375 gm IV .STK-MED ONE Piperacillin/Tazobactam 3.375G [Zosyn 3.375 GM Vial] 3. Med 08/31/20 16:37 Discontinued 375 gm NaCl 0.9% 100 ml Mini-Bag Plus [Sodium Chloride 100ML MINI-BAG PLUS] 100 ml IV STAT Potassium Chloride 10 Meq Tab* [Klor Con 10 MEQ] Med 08/31/20 22:00 Discontinued 20 meq PO HS Potassium Chloride 10 Meq Tab* [Klor Con 10 MEQ] Med 09/01/20 22:00 Active 20 meq PO HS Potassium Chloride 10 Meq Tab* [Klor Con 10 MEQ] Med 09/01/20 10:00 Active 30 meq PO DAILY Simvastatin 10 mg [Zocor 10MG] Med 08/31/20 22:00 Active 10 mg PO HS Vancomycin/Water For Inj (Peg) [Vancomycin 1 Gram/200 Med 08/31/20 16:42 Discontinued ml Bag] 1 gm in 200 ml IV STAT Vancomycin/Water For Inj (Peg) [Vancomycin 1 Gram/200 Med 08/31/20 16:46 Discontinued ml Bag] 1 gm in 200 ml IV UD Vancomycin/Water For Inj (Peg) [Vancomycin 2 Gram/400 Med 08/31/20 16:38 Discontinued ml Bag] 2 gm in 400 ml IV STAT PT Screen per Nursing Assess ONCE PT 08/31/20 22:10 Completed Oxygen Nasal Cannula 3 lpm RT 08/31/20 21:09 Active Peak Expiratory Flow Rate ONCE RT 08/31/20 21:09 Active Pulse Oximetry CONTINUOUS RT 08/31/20 19:22 Active RT Screen per Nursing Assess ONCE RT 08/31/20 22:10 Completed Respiratory Therapy Assessment DAILY RT 08/31/20 21:08 Active Patient Care Notes (Last 24 hours) 09/01/20 12:15 Case Management Note by Kate Royal PATIENT HAS HOME HEALTHCARE SOLUTIONS. THEY WERE NOTIFIED HE IS HERE. THEY WILL NEED NOTIFIED WHEN PATIENT DCS HOME AT [phone]. THEY WILL ALSO NEED FAXED THE DC MED LIST, DC INSTRUCTIONS AND DC SUMMARY( IF AVAILABLE)TO [phone] Initialized on 09/01/20 12:15 - END OF NOTE 09/01/20 08:46 Nursing Note by Cris Rene Spoke with Dr. De La Torre about patient. Order to give iron infusion today. Dr. De La Torre stated if he is doing good he can discharge this afternoon into this evening. The primary nurse was notified of new order and need for discharge if doing well today. Initialized on 09/01/20 08:46 - END OF NOTE 09/01/20 00:21 SBAR Note by Marshall Melvin SITUATION I am calling about RODRIGUEZ IBRAHIM the patient's code status is Full Code The problem I am calling about is: patient Troponin level increased to 0.060. ASSESSMENT RECOMMENDATION Physician notified at 0021 New Orders received: No further orders at this time. Dr De La Torre states to do the next lab draw in the morning. Vital Signs (Last 4 hours) Temp Pulse Resp BP Pulse Ox 09/01/20 00:00 97.8 F 63 17 111/56 92 L 08/31/20 21:35 99.3 F 68 20 138/60 100 08/31/20 21:12 63 14 93 L Diagnois, Code Status Date of Arrival on Unit 08/31/20 Admitted From Emergency Dept Diagnosis sepsis, sec. flu Resucitation Status Full Code Intake and Output 24 Hours 08/31/20 09/01/20 06:59 06:59 Weight 77.4 kg Physical Assessment Mental Status Alert Patient Orientation Person,Place,Time Coma Scale Total 15 Breath Sounds [Anterior/ [place]ales,Diminished Posterior Bilateral Throughout ] Cardiac Rhythm-[facility] Sinus Arrhythmia Change from Baseline: No Bowel Sounds [All Quadrants] Present,Active Abdomen Description Soft,Large,Round Date Nuno Cath Inserted 08/31/2020 Urine Appearance Clear Urine Color Yellow Skin Color Normal for Race Skin Temperature Warm Pain Scale (Last 24 Hours) Pain Intensity 4 Pain Intensity 4 Pain Intensity 4 Pain Intensity 4 Pain Intensity 4 Pain Intensity 6 Pain Intensity 6 Pain Intensity 6 Pain Intensity 6 Pain Intensity 6 Pain Intensity 7 PAST MEDICAL HISTORY Neurological History TIA ENT History Cataracts Endocrine Medical History No Pertinent History Respiratory History CHF,COPD,Lung Cancer,Pneumonia Cardiac History Congestive Heart Failure,Coronary Artery Disease ,High Cholesterol,Hypertension,Myocardial Infarction ([place] GI Medical History GI Bleed,Other History Other Pyscho-Social History No Pertinent History Communicable Disease No Pertinent History Comment kidney failure, anemia with blood transfusion, Lung cancer left upper lobe Diet Order (Last 24 Hours) 08/31/20 Breakfast Heart-Healthy Diet Lab Results (Last 24 Hours) 08/31/20 08/31/20 08/31/20 Range/Units 22:30 19:15 18:44 WBC (4.0-10.5) K/mm3 RBC (4.1-5.6) M/mm3 Hgb (12.5-18.0) gm/dl Hct (42-50) % MCV (78-100) fl MCH (26-32) pg MCHC (32-36) g/dl RDW (11.5-14.0) % Plt Count (150-450) K/mm3 MPV (7.5-11.0) fl Segmented Neutrophils (36.-66.) % Lymphocytes (Manual) (24-44) % Monocytes (Manual) (0.0-12.0) % Toxic Granulation Platelet Estimate (NORMAL) RBC Morphology Sodium (137-145) mmol/L Potassium (3.5-5.1) mmol/L Chloride (98-107) mmol/L Carbon Dioxide (22-30) mmol/L Anion Gap (5-15) MEQ/L BUN (9-20) mg/dL Creatinine (0.66-1.25) mg/dL Estimated GFR ML/MIN Glucose (74-106) mg/dL Lactic Acid 1.0 (0.4-2.0) Calcium (8.4-10.2) mg/dL Total Bilirubin (0.2-1.3) mg/dL AST (17-59) U/L ALT (0-50) U/L Alkaline Phosphatase (38-126) U/L Troponin I 0.060 H* 0.056 H* (0.000-0.034) ng/mL Serum Total Protein (6.3-8.2) g/dL Albumin (3.5-5.0) g/dL Lipase (23-300) U/L Urine Color (YELLOW) Urine Appearance (CLEAR) Urine pH (5-6) Ur Specific [place] (1.005-1.025) Urine Protein (Negative) Urine Ketones (NEGATIVE) Urine Blood (0-5) Marcelino/ul Urine Nitrite (NEGATIVE) Urine Bilirubin (NEGATIVE) Urine Urobilinogen (0-1) mg/dL Ur Leukocyte Esterase (NEGATIVE) Urine WBC (Auto) (0-5) /HPF Urine RBC (Auto) (0-2) /HPF U Hyaline Cast (Auto) (0-2) /LPF U Epithel Cells (Auto) (FEW) /HPF Urine Bacteria (Auto) (NEGATIVE) /HPF Urine Mucus (Auto) (NEGATIVE) /HPF Urine Culture Reflexed (NO) Urine Glucose (NEGATIVE) mg/dL Influenza Type A Ag (NEGATIVE) Influenza Type B Ag (NEGATIVE) SARS-CoV-2 (PCR) (NEGATIVE) ABO Group Rh Factor Antibody Screen (NEGATIVE) 08/31/20 08/31/20 08/31/20 Range/Units 18:15 17:30 16:45 WBC (4.0-10.5) K/mm3 RBC (4.1-5.6) M/mm3 Hgb (12.5-18.0) gm/dl Hct (42-50) % MCV (78-100) fl MCH (26-32) pg MCHC (32-36) g/dl RDW (11.5-14.0) % Plt Count (150-450) K/mm3 MPV (7.5-11.0) fl Segmented Neutrophils (36.-66.) % Lymphocytes (Manual) (24-44) % Monocytes (Manual) (0.0-12.0) % Toxic Granulation Platelet Estimate (NORMAL) RBC Morphology Sodium (137-145) mmol/L Potassium (3.5-5.1) mmol/L Chloride (98-107) mmol/L Carbon Dioxide (22-30) mmol/L Anion Gap (5-15) MEQ/L BUN (9-20) mg/dL Creatinine (0.66-1.25) mg/dL Estimated GFR ML/MIN Glucose (74-106) mg/dL Lactic Acid (0.4-2.0) Calcium (8.4-10.2) mg/dL Total Bilirubin (0.2-1.3) mg/dL AST (17-59) U/L ALT (0-50) U/L Alkaline Phosphatase (38-126) U/L Troponin I (0.000-0.034) ng/mL Serum Total Protein (6.3-8.2) g/dL Albumin (3.5-5.0) g/dL Lipase (23-300) U/L Urine Color (YELLOW) Urine Appearance (CLEAR) Urine pH (5-6) Ur Specific [place] (1.005-1.025) Urine Protein (Negative) Urine Ketones (NEGATIVE) Urine Blood (0-5) Marcelino/ul Urine Nitrite (NEGATIVE) Urine Bilirubin (NEGATIVE) Urine Urobilinogen (0-1) mg/dL Ur Leukocyte Esterase (NEGATIVE) Urine WBC (Auto) (0-5) /HPF Urine RBC (Auto) (0-2) /HPF U Hyaline Cast (Auto) (0-2) /LPF U Epithel Cells (Auto) (FEW) /HPF Urine Bacteria (Auto) (NEGATIVE) /HPF Urine Mucus (Auto) (NEGATIVE) /HPF Urine Culture Reflexed (NO) Urine Glucose (NEGATIVE) mg/dL Influenza Type A Ag NEGATIVE (NEGATIVE) Influenza Type B Ag POSITIVE (NEGATIVE) SARS-CoV-2 (PCR) NEGATIVE (NEGATIVE) ABO Group A Rh Factor POSITIVE Antibody Screen POSITIVE (NEGATIVE) 08/31/20 08/31/20 08/31/20 Range/Units 16:45 16:45 16:45 WBC 5.5 (4.0-10.5) K/mm3 RBC 3.22 L (4.1-5.6) M/mm3 Hgb 10.0 L (12.5-18.0) gm/dl Hct 31.6 L (42-50) % MCV 98.1 (78-100) fl MCH 31.1 (26-32) pg MCHC 31.6 L (32-36) g/dl RDW 19.7 H (11.5-14.0) % Plt Count 96 L (150-450) K/mm3 MPV 9.9 (7.5-11.0) fl Segmented Neutrophils 91 H (36.-66.) % Lymphocytes (Manual) 7 L (24-44) % Monocytes (Manual) 2 (0.0-12.0) % Toxic Granulation 1+ Platelet Estimate NORMAL (NORMAL) RBC Morphology NORMAL Sodium 136 L (137-145) mmol/L Potassium 3.9 (3.5-5.1) mmol/L Chloride 91 L (98-107) mmol/L Carbon Dioxide 38 H (22-30) mmol/L Anion Gap 10.6 (5-15) MEQ/L BUN 49 H (9-20) mg/dL Creatinine 2.29 H (0.66-1.25) mg/dL Estimated GFR 29.5 ML/MIN Glucose 160 H (74-106) mg/dL Lactic Acid (0.4-2.0) Calcium 8.9 (8.4-10.2) mg/dL Total Bilirubin 0.80 (0.2-1.3) mg/dL AST 111 H (17-59) U/L ALT 48 (0-50) U/L Alkaline Phosphatase 212 H (38-126) U/L Troponin I 0.058 H* (0.000-0.034) ng/mL Serum Total Protein 7.1 (6.3-8.2) g/dL Albumin 3.6 (3.5-5.0) g/dL Lipase 34 (23-300) U/L Urine Color (YELLOW) Urine Appearance (CLEAR) Urine pH (5-6) Ur Specific [place] (1.005-1.025) Urine Protein (Negative) Urine Ketones (NEGATIVE) Urine Blood (0-5) Marcelino/ul Urine Nitrite (NEGATIVE) Urine Bilirubin (NEGATIVE) Urine Urobilinogen (0-1) mg/dL Ur Leukocyte Esterase (NEGATIVE) Urine WBC (Auto) (0-5) /HPF Urine RBC (Auto) (0-2) /HPF U Hyaline Cast (Auto) (0-2) /LPF U Epithel Cells (Auto) (FEW) /HPF Urine Bacteria (Auto) (NEGATIVE) /HPF Urine Mucus (Auto) (NEGATIVE) /HPF Urine Culture Reflexed (NO) Urine Glucose (NEGATIVE) mg/dL Influenza Type A Ag (NEGATIVE) Influenza Type B Ag (NEGATIVE) SARS-CoV-2 (PCR) (NEGATIVE) ABO Group Rh Factor Antibody Screen (NEGATIVE) 08/31/20 08/31/20 Range/Units 16:22 16:15 WBC (4.0-10.5) K/mm3 RBC (4.1-5.6) M/mm3 Hgb (12.5-18.0) gm/dl Hct (42-50) % MCV (78-100) fl MCH (26-32) pg MCHC (32-36) g/dl RDW (11.5-14.0) % Plt Count (150-450) K/mm3 MPV (7.5-11.0) fl Segmented Neutrophils (36.-66.) % Lymphocytes (Manual) (24-44) % Monocytes (Manual) (0.0-12.0) % Toxic Granulation Platelet Estimate (NORMAL) RBC Morphology Sodium (137-145) mmol/L Potassium (3.5-5.1) mmol/L Chloride (98-107) mmol/L Carbon Dioxide (22-30) mmol/L Anion Gap (5-15) MEQ/L BUN (9-20) mg/dL Creatinine (0.66-1.25) mg/dL Estimated GFR ML/MIN Glucose (74-106) mg/dL Lactic Acid 3.0 H (0.4-2.0) Calcium (8.4-10.2) mg/dL Total Bilirubin (0.2-1.3) mg/dL AST (17-59) U/L ALT (0-50) U/L Alkaline Phosphatase (38-126) U/L Troponin I (0.000-0.034) ng/mL Serum Total Protein (6.3-8.2) g/dL Albumin (3.5-5.0) g/dL Lipase (23-300) U/L Urine Color YELLOW (YELLOW) Urine Appearance CLEAR (CLEAR) Urine pH 7.0 (5-6) Ur Specific [place] 1.006 (1.005-1.025) Urine Protein NEGATIVE (Negative) Urine Ketones NEGATIVE (NEGATIVE) Urine Blood SMALL (0-5) Marcelino/ul Urine Nitrite NEGATIVE (NEGATIVE) Urine Bilirubin NEGATIVE (NEGATIVE) Urine Urobilinogen NEGATIVE (0-1) mg/dL Ur Leukocyte Esterase NEGATIVE (NEGATIVE) Urine WBC (Auto) NONE (0-5) /HPF Urine RBC (Auto) 0-2 (0-2) /HPF U Hyaline Cast (Auto) 0-2 (0-2) /LPF U Epithel Cells (Auto) NONE (FEW) /HPF Urine Bacteria (Auto) NONE (NEGATIVE) /HPF Urine Mucus (Auto) SLIGHT (NEGATIVE) /HPF Urine Culture Reflexed NO (NO) Urine Glucose NEGATIVE (NEGATIVE) mg/dL Influenza Type A Ag (NEGATIVE) Influenza Type B Ag (NEGATIVE) SARS-CoV-2 (PCR) (NEGATIVE) ABO Group Rh Factor Antibody Screen (NEGATIVE) Lactic Acid (Last 24 Hours) 08/31/20 08/31/20 18:44 16:15 Lactic Acid 1.0 3.0 H Microbiology Results (Last 24 Hours) 08/31/20 16:35 Blood Culture Gram Stain - Pending Blood Blood Culture - Pending 08/31/20 16:35 Blood Culture Gram Stain - Pending Blood Blood Culture - Pending Orders (Last 24 Hours) Category Date Time Status Bedrest ROUTINE Activity 08/31/20 19:22 Active Code Status Order ROUTINE Care 08/31/20 19:22 Active IV Care Q6H Care 08/31/20 19:22 Active Neuro Checks Q4H Care 08/31/20 19:[address] in Observation ROUTINE Care 08/31/20 19:22 Active Telemetry q6h Care 08/31/20 19:22 Active Heart-Healthy Diet Diet 08/31/20 Breakfast Active BLOOD CULTURE Stat Lab 08/31/20 16:35 Received CBC W DIFF AM.LAB Lab 09/01/20 04:00 Ordered CMP AM.LAB Lab 09/01/20 04:00 Ordered TROPONIN AM.LAB Lab 09/01/20 04:00 Ordered TROPONIN Q3H Lab 09/01/20 01:15 Ordered TROPONIN Q3H Lab 09/01/20 04:15 Ordered Albuterol 2.5 mg/3 ml Neb [Proventil 2.5 mg/3 ml Neb Med 08/31/20 21:11 Ordered ] 2.5 mg IH Q6H PRN PRN Apixaban [Eliquis 2.5 mg Tablet] Med 08/31/20 22:00 Ordered 2.5 mg PO BID Bumetanide 1 mg [Bumex 1 mg] Med 08/31/20 22:00 Ordered 2 mg PO BID Famotidine 20 mg [Pepcid 20 MG] Med 08/31/20 22:00 Ordered 20 mg PO BID Gabapentin 100 mg [Neurontin 100 MG] Med 08/31/20 22:00 Ordered 200 mg PO HS Hydrocodone/APAP 5/325 [[place] 5/325 mg] Med 08/31/20 22:00 Ordered 1 tab PO Q6H PRN PRN Magnesium Oxide 400 mg [Mag-Ox 400] Med 08/31/20 22:00 Ordered 400 mg PO BID Metoprolol Tartrate 50 mg [Lopressor 50 MG] Med 08/31/20 22:00 Ordered 50 mg PO Q12HT Potassium Chloride 10 Meq Tab* [Klor Con 10 MEQ] Med 08/31/20 22:00 Ordered 20 meq PO HS Simvastatin 10 mg [Zocor 10MG] Med 08/31/20 22:00 Ordered 10 mg PO HS PT Screen per Nursing Assess ONCE PT 08/31/20 22:10 Active Oxygen Nasal Cannula 3 lpm RT 08/31/20 21:09 Active Peak Expiratory Flow Rate ONCE RT 08/31/20 21:09 Active Pulse Oximetry CONTINUOUS RT 08/31/20 19:22 Active Respiratory Therapy Assessment DAILY RT 08/31/20 21:08 Active Nursing Notes (Last 12 hours) 08/31/20 21:32 Nursing Note by Marshall Melvin Dr in regards to patient night time meds. radio script writer received order to continue all meds. Initialized on 08/31/20 21:32 - END OF NOTE Active Visit Medications Generic Name Dose Route Start Last Admin Trade Name Freq PRN Reason Stop Dose Admin Hydrocodone Bitart/Acetaminophen 1 tab 08/31/20 22:00 [place] 5/325 Mg PO 09/05/20 21:59 Q6H PRN PRN PAIN Albuterol Sulfate 2.5 mg 08/31/20 21:11 08/31/20 21:12 Proventil 2.5 Mg/3 Ml Neb IH 09/30/20 21:10 2.5 mg Q6H PRN PRN Administration SHORTNESS OF BREATH/WHEEZING Apixaban 2.5 mg 08/31/20 22:00 08/31/20 22:26 Eliquis 2.5 Mg Tablet PO 09/30/20 21:59 2.5 mg BID SIMBA Administration Bumetanide 2 mg 08/31/20 22:00 08/31/20 22:27 Bumex 1 Mg PO 09/30/20 21:59 2 mg BID SIMBA Administration Famotidine 20 mg 08/31/20 22:00 08/31/20 22:29 Pepcid 20 Mg PO 09/30/20 21:59 20 mg BID SIMBA Administration Gabapentin 200 mg 08/31/20 22:00 08/31/20 22:28 Neurontin 100 Mg PO 09/30/20 21:59 200 mg HS SIMBA Administration Magnesium Oxide 400 mg 08/31/20 22:00 08/31/20 22:28 Mag-Ox 400 PO 09/30/20 21:59 400 mg BID SIMBA Administration Metoprolol Tartrate 50 mg 08/31/20 22:00 08/31/20 22:48 Lopressor 50 Mg PO 09/30/20 21:59 Not Given Q12HT SIMBA Potassium Chloride 20 meq 08/31/20 22:00 08/31/20 22:28 Klor Con 10 Meq PO 09/30/20 21:59 20 meq HS SIMBA Administration Simvastatin 10 mg 08/31/20 22:00 08/31/20 22:29 Zocor 10mg PO 09/30/20 21:59 10 mg HS SIMBA Administration Home Medications Medication Instructions Recorded Confirmed Last Taken Type Bumetanide [Bumex] 2 mg PO BID 08/31/20 08/31/20 Unknown History Hydrocodone/Acetaminophen 1 each PO Q6H PRN PRN 08/31/20 08/31/20 Unknown History [Hydrocodone-Acetamin 5-325 mg] Potassium Chloride [Klor-Con 10] 20 meq PO HS 08/31/20 08/31/20 Unknown History Initialized on 09/01/20 00:21 - END OF NOTE 08/31/20 21:32 Nursing Note by Marshall Melvin Dr in regards to patient night time meds. radio script writer received order to continue all meds. Initialized on 08/31/20 21:32 - END OF NOTE Code(s): J10.1 - FLU DUE TO OTH IDENT INFLUENZA VIRUS W OTH RESP MANIFEST (2) Elevated troponin Current Visit: Yes Status: Acute Code(s): R77.8 - OTHER SPECIFIED ABNORMALITIES OF PLASMA PROTEINS (3) Renal insufficiency Current Visit: Yes Status: Acute (4) CAD (coronary artery disease) Current Visit: No Status: Chronic Qualifiers: Code(s): I25.10 - ATHSCL HEART DISEASE OF [place] CORONARY ARTERY W/O ANG PCTRS (5) CHF (congestive heart failure), NYHA class III Current Visit: No Status: Chronic Code(s): I50.9 - HEART FAILURE, UNSPECIFIED
[2020-09-01] MEDS: PROVENTIL 2.5 MG/3 ML NEB IH PRN (19:49)
[2020-09-01] MEDS: Zocor 10MG PO SCH (21:54)
[2020-09-01] MEDS: NORCO 5/325 MG PO PRN (21:55)
[2020-09-02] MEDS: PROVENTIL 2.5 MG/3 ML NEB IH PRN ×2 (07:50→14:52)
[2020-09-02] MEDS: MEDROL 4 MG PO SCH (08:21)
[2020-09-02] MEDS: BUMEX 1 MG PO SCH ×2 (08:21→17:06)
[2020-09-02] MEDS: Neurontin 100 MG PO SCH ×2 (08:22→22:13)
[2020-09-02] MEDS: FOLATE 1 MG PO SCH (08:22)
[2020-09-02] MEDS: ELIQUIS 2.5 MG TABLET PO SCH ×2 (08:22→22:13)
[2020-09-02] MEDS: Klor Con 10 MEQ PO SCH ×2 (08:22→22:13)
[2020-09-02] MEDS: Lopressor 50 MG PO SCH ×2 (08:22→22:13)
[2020-09-02] MEDS: Protonix 40MG Tablet PO SCH (08:22)
[2020-09-02] MEDS: NORCO 5/325 MG PO PRN ×2 (08:22→17:06)
[2020-09-02] MEDS: Pepcid 20 MG PO SCH ×2 (08:22→22:13)
[2020-09-02] MEDS: MAG-OX 400 PO SCH ×2 (08:22→22:13)
[2020-09-02 09:50] LABS: Hematocrit 24.8 % (42-50); Mean Cell Volume 97.6 fl (78-100); Mean Corpuscular Hemoglobin 31.5 pg (26-32); Mean Corpuscular Hgb Concent. 32.3 g/dl (32-36); Mean Platelet Volume 9.4 fl (7.5-11.0); Platelet Count 76 K/mm3 (150-450); Red Blood Count 2.54 M/mm3 (4.1-5.6); Red Cell Distribution Width 19.1 % (11.5-14.0); White Blood Count 4.6 K/mm3 (4.0-10.5)
[2020-09-02] MEDS: ROCEPHIN 1 Gm-D5w 50 ml Bag** 1 G/50 ML IVPB IV SCH (11:05)
[2020-09-02 11:17] LABS: ALBUMIN 2.7 g/dL (3.5-5.0); ANION GAP 7.3 MEQ/L (5-15); BILIRUBIN,TOTAL 0.4 mg/dL (0.2-1.3); Calcium 8.2 mg/dL (8.4-10.2); Creatinine 1 1.85 mg/dL (0.66-1.25); EST GLOMERULAR FILTRATION RATE 37.8 ML/MIN; Potassium 3.5 mmol/L (3.5-5.1); Total Protein 5.5 g/dL (6.3-8.2)
[2020-09-02 15:34] LABS: Slide Review YES
[2020-09-02] MEDS: PROVENTIL 2.5 MG/3 ML NEB IH SCH (19:43)
[2020-09-02] MEDS: Zocor 10MG PO SCH (22:13)
[2020-09-03] MEDS: NORCO 5/325 MG PO PRN (08:53)
[2020-09-03] MEDS: PROVENTIL 2.5 MG/3 ML NEB IH SCH ×3 (08:55→17:02)
[2020-09-03] MEDS: MEDROL 4 MG PO SCH (09:52)
[2020-09-03] MEDS: Klor Con 10 MEQ PO SCH ×2 (09:52→22:49)
[2020-09-03] MEDS: Pepcid 20 MG PO SCH ×2 (09:52→22:49)
[2020-09-03] MEDS: MAG-OX 400 PO SCH ×2 (09:53→22:49)
[2020-09-03] MEDS: Protonix 40MG Tablet PO SCH (09:53)
[2020-09-03] MEDS: BUMEX 1 MG PO SCH ×2 (09:53→16:30)
[2020-09-03] MEDS: FOLATE 1 MG PO SCH (09:53)
[2020-09-03] MEDS: Neurontin 100 MG PO SCH ×2 (09:53→22:49)
[2020-09-03] MEDS: ELIQUIS 2.5 MG TABLET PO SCH ×2 (09:53→22:49)
[2020-09-03] MEDS: Lopressor 50 MG PO SCH ×2 (09:53→22:49)
[2020-09-03] MEDS: Zaroxolyn 2.5 MG PO SCH (09:57)
--- NOTE | 2020-09-03 11:18 | PCM.NOTE ---
Date and Time: 09/02/20 1115 Subjective Assessment: Pt. notes back hurting but breathing is doing ok. - Review of Systems Constitutional: No Symptoms Eyes: No Symptoms Ears, Nose, & Throat: No Symptoms Respiratory: No Symptoms Cardiac: No Symptoms Abdominal/Gastrointestinal: No Symptoms Genitourinary Symptoms: No Symptoms Musculoskeletal: Back Pain Skin: No Symptoms Objective Exam General Appearance: no apparent distress Neurologic Exam: alert, cooperative Skin Exam: normal color, warm, dry Wound Assessment: Skin/Wound Assessment Wound/Incision Assessment Start: 08/31/20 22:10 Text: Status: Active Freq: Q6H Protocol: Document 09/03/20 04:00 MS (Rec: 09/03/20 04:50 MS [id number]) Wound/Incision Assessment Buttock Wound Assessment Shift Assessment Wound Type Pressure Ulcer Wound Stage Stage II Drainage Amount None Drainage Odor None/Absent General Appearance Open to air Surrounding Tissue Ambia Comment stage 2 pressure ulcers noted to bilateral buttocks. barrier cream applied. Wound Photo Photo Taken No Comment: already placed on chart Eye Exam: eyes nml inspection Ears, Nose, Throat Exam: normal ENT inspection Neck Exam: normal inspection Lymphatic Exam: No adenopathy Respiratory Exam: normal breath sounds, lungs clear Cardiovascular Exam: regular rate/rhythm Gastrointestinal/Abdomen Exam: soft, normal bowel sounds, No tenderness OBJECTIVE DATA Vital Signs: Vital Signs - 24 hr Temp Pulse Resp BP Pulse Ox 09/03/20 07:17 98.3 F 60 18 110/60 96 09/03/20 04:00 98.9 F 79 20 121/56 98 09/03/20 00:00 98.5 F 89 17 145/70 94 L 09/02/20 19:56 97.9 F 78 18 124/57 96 09/02/20 19:50 75 18 98 09/02/20 15:02 74 16 97 09/02/20 11:41 98.6 F 75 16 99/42 95 Pain Assessment - Last Documented Pain Intensity 10 Pain Scale Used 0-10 Pain Scale Intake and Output: Intake & Output 08/31/20 09/01/20 09/02/20 09/03/20 11:59 11:59 11:59 11:59 Intake Total 1246 740 240 Output Total 3000 8910 1340 Balance -0944 3000 -1100 Weight 77.4 kg Lab Results: Lab Results-Last 24 Hours 09/02/20 09/02/20 Range/Units 09:30 09:35 Sodium 133 L (137-145) mmol/L Potassium 3.5 (3.5-5.1) mmol/L Chloride 89 L (98-107) mmol/L Carbon Dioxide 39 H (22-30) mmol/L Anion Gap 7.3 (5-15) MEQ/L BUN 40 H (9-20) mg/dL Creatinine 1.85 H (0.66-1.25) mg/dL Estimated GFR 37.8 ML/MIN Glucose 157 H (74-106) mg/dL Calcium 8.2 L (8.4-10.2) mg/dL Total Bilirubin 0.40 (0.2-1.3) mg/dL AST 39 (17-59) U/L ALT 28 (0-50) U/L Alkaline Phosphatase 130 H (38-126) U/L Serum Total Protein 5.5 L (6.3-8.2) g/dL Albumin 2.7 L (3.5-5.0) g/dL Slides for Path Review YES Assessment/Plan (1) Sepsis Current Visit: Yes Status: Acute Assessment & Plan: Pt. vitals are stable, afebrile, awaiting culture results of gram negative rods (2) Arthritis of spine Current Visit: Yes Status: Acute Assessment & Plan: continue norco 5 Code(s): M47.819 - SPONDYLOSIS WITHOUT MYELOPATHY OR RADICULOPATHY, SITE UNSP (3) Influenza B Current Visit: Yes Status: Acute Assessment & Plan: steadily seems to be clinically improving. Code(s): J10.1 - FLU DUE TO OTH IDENT INFLUENZA VIRUS W OTH RESP MANIFEST
[2020-09-03] MEDS ORDERED: SUBLIMAZE 100 MCG/2 ML IV PRN (11:20)
--- NOTE | 2020-09-03 11:20 | PCM.NOTE ---
Date and Time: 09/03/20 1118 Subjective Assessment: Pt. is having severe lower back pain today. - Review of Systems Constitutional: No Symptoms Eyes: No Symptoms Ears, Nose, & Throat: No Symptoms Respiratory: No Symptoms Cardiac: No Symptoms Abdominal/Gastrointestinal: No Symptoms Genitourinary Symptoms: No Symptoms Musculoskeletal: Back Pain Skin: No Symptoms Objective Exam General Appearance: moderate distress Skin Exam: normal color, warm, dry, No rash, No petechiae Wound Assessment: Skin/Wound Assessment Wound/Incision Assessment Start: 08/31/20 22:10 Text: Status: Active Freq: Q6H Protocol: Document 09/03/20 04:00 MS (Rec: 09/03/20 04:50 MS [id number]) Wound/Incision Assessment Buttock Wound Assessment Shift Assessment Wound Type Pressure Ulcer Wound Stage Stage II Drainage Amount None Drainage Odor None/Absent General Appearance Open to air Surrounding Tissue [place] Comment stage 2 pressure ulcers noted to bilateral buttocks. barrier cream applied. Wound Photo Photo Taken No Comment: already placed on chart Eye Exam: PERRL, eyes nml inspection Ears, Nose, Throat Exam: normal ENT inspection Neck Exam: normal inspection Respiratory Exam: normal breath sounds Cardiovascular Exam: regular rate/rhythm Gastrointestinal/Abdomen Exam: soft Back Exam: decreased range of motion, point tenderness OBJECTIVE DATA Vital Signs: Vital Signs - 24 hr Temp Pulse Resp BP Pulse Ox 09/03/20 07:17 98.3 F 60 18 110/60 96 09/03/20 04:00 98.9 F 79 20 121/56 98 09/03/20 00:00 98.5 F 89 17 145/70 94 L 09/02/20 19:56 97.9 F 78 18 124/57 96 09/02/20 19:50 75 18 98 09/02/20 15:02 74 16 97 09/02/20 11:41 98.6 F 75 16 99/42 95 Pain Assessment - Last Documented Pain Intensity 10 Pain Scale Used 0-10 Pain Scale Intake and Output: Intake & Output 08/31/20 09/01/20 09/02/20 09/03/20 11:59 11:59 11:59 11:59 Intake Total 1246 740 240 Output Total 3000 3740 1340 Balance -6784 -3000 -1100 Weight 77.4 kg Lab Results: Lab Results-Last 24 Hours 09/02/20 09/02/20 Range/Units 09:30 09:35 Sodium 133 L (137-145) mmol/L Potassium 3.5 (3.5-5.1) mmol/L Chloride 89 L (98-107) mmol/L Carbon Dioxide 39 H (22-30) mmol/L Anion Gap 7.3 (5-15) MEQ/L BUN 40 H (9-20) mg/dL Creatinine 1.85 H (0.66-1.25) mg/dL Estimated GFR 37.8 ML/MIN Glucose 157 H (74-106) mg/dL Calcium 8.2 L (8.4-10.2) mg/dL Total Bilirubin 0.40 (0.2-1.3) mg/dL AST 39 (17-59) U/L ALT 28 (0-50) U/L Alkaline Phosphatase 130 H (38-126) U/L Serum Total Protein 5.5 L (6.3-8.2) g/dL Albumin 2.7 L (3.5-5.0) g/dL Slides for Path Review YES Assessment/Plan (1) Sepsis Current Visit: Yes Status: Acute Assessment & Plan: Stable culture positive for salmonella, clinically improving (2) Arthritis of spine Current Visit: Yes Status: Acute Assessment & Plan: will add fentanyl has tolerated this in the past Code(s): M47.819 - SPONDYLOSIS WITHOUT MYELOPATHY OR RADICULOPATHY, SITE UNSP (3) Influenza B Current Visit: Yes Status: Acute Assessment & Plan: clinically improving. Code(s): J10.1 - FLU DUE TO OTH IDENT INFLUENZA VIRUS W OTH RESP MANIFEST
[2020-09-03] MEDS ORDERED: Duragesic 25MCG Patch TD SCH (11:30)
[2020-09-03] MEDS: ROCEPHIN 1 Gm-D5w 50 ml Bag** 1 G/50 ML IVPB IV SCH (16:30)
[2020-09-03] MEDS: Zocor 10MG PO SCH (22:49)
[2020-09-04] MEDS: PROVENTIL 2.5 MG/3 ML NEB IH SCH ×2 (07:20→13:08)
[2020-09-04] MEDS: FOLATE 1 MG PO SCH (09:25)
[2020-09-04] MEDS: BUMEX 1 MG PO SCH (09:25)
[2020-09-04] MEDS: ELIQUIS 2.5 MG TABLET PO SCH (09:25)
[2020-09-04] MEDS: Klor Con 10 MEQ PO SCH (09:25)
[2020-09-04] MEDS: MEDROL 4 MG PO SCH (09:26)
[2020-09-04] MEDS: Pepcid 20 MG PO SCH (09:26)
[2020-09-04] MEDS: Protonix 40MG Tablet PO SCH (09:26)
[2020-09-04] MEDS: MAG-OX 400 PO SCH (09:26)
[2020-09-04] MEDS: Lopressor 50 MG PO SCH (09:26)
[2020-09-04] MEDS: Neurontin 100 MG PO SCH (09:26)
[2020-09-04] MEDS: ROCEPHIN 1 Gm-D5w 50 ml Bag** 1 G/50 ML IVPB IV SCH (09:27)
[2020-09-04 12:57] VITALS: BP 127/62; O2SAT 96
[2020-09-04 13:13] VITALS: PULSE 74
--- NOTE | 2020-09-04 16:21 | PCM.DS ---
Discharge Summary Date of Admission: 09/01/20 19:22 Admitting Physician: SADIA GROVER Primary Care Provider: SADIA GROVER Allergies Allergies No Known Drug Allergies Allergy (Verified 08/31/20 20:38) Hospital Summary - Hospital Course Hospital Course: Chief Complaint Diagnosis SEPSIS, FLU B, FAILED OUTPATIENT Allergies Allergy/AdvReac Type Severity Reaction Status Date / Time No Known Drug Allergies Allergy Verified 08/31/20 20:38 Vital Signs (Last 24 hours) Temp Pulse Resp BP Pulse Ox 09/04/20 13:11 74 18 96 09/04/20 12:00 98.7 F 72 20 127/62 96 09/04/20 07:30 76 18 97 09/04/20 06:42 99.5 F 75 24 124/52 95 09/04/20 04:00 97.4 F 72 16 108/50 95 09/04/20 00:00 97.8 F 67 16 128/56 98 09/03/20 20:00 98.4 F 73 18 120/60 99 09/03/20 17:03 62 20 97 Home Medications Medication Instructions Recorded Confirmed Last Taken Type Bumetanide [Bumex] 2 mg PO BID 08/31/20 08/31/20 Unknown History Hydrocodone/Acetaminophen 1 each PO Q6H PRN PRN 08/31/20 08/31/20 Unknown History [Hydrocodone-Acetamin 5-325 mg] Potassium Chloride [Klor-Con 10] 20 meq PO HS 08/31/20 08/31/20 Unknown History Ciprofloxacin HCl [Cipro] 500 mg PO BID #14 tablet 09/04/20 Unknown Rx Current Medications Discontinued Medications Generic Name Dose Route Start Last Admin Trade Name Freq PRN Reason Stop Dose Admin Acetaminophen 650 mg 08/31/20 17:05 08/31/20 17:09 [place] 650 Mg [place] 08/31/20 17:06 650 mg STAT ONE Administration Hydrocodone Bitart/Acetaminophen 1 tab 08/31/20 22:00 09/03/20 08:53 [place]ony 5/325 Mg PO 09/05/20 21:59 1 tab Q6H PRN PRN Administration PAIN Albuterol Sulfate Confirm 08/31/20 21:06 Proventil 2.5 Mg/3 Ml Neb Administered 08/31/20 21:07 Dose 2.5 mg IH .STK-MED ONE Albuterol Sulfate 2.5 mg 08/31/20 21:11 09/02/20 14:52 Proventil 2.5 Mg/3 Ml Neb IH 09/30/20 21:10 2.5 mg Q6H PRN PRN Administration SHORTNESS OF BREATH/WHEEZING Albuterol Sulfate 2.5 mg 09/02/20 19:00 09/04/20 13:08 Proventil 2.5 Mg/3 Ml Neb IH 10/02/20 18:59 2.5 mg TIDRT SIMBA Administration Apixaban 2.5 mg 08/31/20 22:00 09/04/20 09:25 Eliquis 2.5 Mg Tablet PO 09/30/20 21:59 2.5 mg BID SIMBA Administration Bumetanide 2 mg 08/31/20 22:00 08/31/20 22:27 Bumex 1 Mg PO 09/30/20 21:59 2 mg BID SIMBA Administration Bumetanide 2 mg 09/01/20 10:00 09/04/20 09:25 Bumex 1 Mg PO 09/30/20 21:59 2 mg BID DIURETIC SIMBA Administration Famotidine 20 mg 08/31/20 22:00 09/04/20 09:26 Pepcid 20 Mg PO 09/30/20 21:59 20 mg BID SIMBA Administration Fentanyl 25 mcg 09/03/20 11:30 09/03/20 13:00 Duragesic 25mcg Patch TD 09/08/20 11:29 25 mcg Q72H SIMBA Administration Fentanyl Citrate 25 mcg 09/03/20 11:20 Sublimaze 100 Mcg/2 Ml IV 09/08/20 11:19 Q4H PRN PRN SEVERE PAIN Folic Acid 1 mg 09/01/20 10:00 09/04/20 09:25 Folate 1 Mg PO 10/01/20 09:59 1 mg DAILY SIMBA Administration Gabapentin 200 mg 08/31/20 22:00 09/03/20 22:49 Neurontin 100 Mg PO 09/30/20 21:59 200 mg HS SIMBA Administration Gabapentin 100 mg 09/01/20 10:00 09/04/20 09:26 Neurontin 100 Mg PO 10/01/20 09:59 100 mg DAILY SIMBA Administration Piperacillin Sod/Tazobactam 100 mls @ 200 mls/hr 08/31/20 16:37 08/31/20 17:00 Sod 3.375 gm/ Sodium Chloride IV 08/31/20 17:06 200 mls/hr STAT ONE Administration Vancomycin HCl 2 gm in 400 mls @ 133.333 mls/hr 08/31/20 16:38 08/31/20 17:51 Vancomycin 2 Gram/400 Ml Bag IV 08/31/20 19:37 Not Given STAT ONE Vancomycin HCl 1 gm in 200 mls @ 125 mls/hr 08/31/20 16:42 08/31/20 17:46 Vancomycin 1 Gram/200 Ml Bag IV 08/31/20 18:17 125 mls/hr STAT ONE 125 mls/hr Administration Sodium Chloride Confirm 08/31/20 16:46 Sodium Chloride 100ml Mini-Bag Plus Administered 08/31/20 16:47 Dose 100 mls @ ud IV .STK-MED ONE Vancomycin HCl Confirm 08/31/20 16:46 Vancomycin 1 Gram/200 Ml Bag Administered 08/31/20 16:47 Dose 1 gm in 200 mls @ ud IV .STK-MED ONE Sodium Chloride 1,000 mls @ 999 mls/hr 08/31/20 17:31 08/31/20 17:47 Sodium Chloride 0.9% 1000 Ml IV 08/31/20 18:31 999 mls/hr .Q1H1M STA Administration Sodium Chloride Confirm 08/31/20 17:46 Sodium Chloride 0.9% 1000 Ml Administered 08/31/20 17:47 Dose 1,000 mls @ ud .ROUTE .STK-MED ONE Iron Sucrose 100 mg/ Dextrose 105 mls @ 300 mls/hr 09/01/20 09:00 09/01/20 09:41 IV 09/01/20 09:20 300 mls/hr NOW ONE Administration Ceftriaxone Sodium/Dextrose 1 g in 50 mls @ 100 mls/hr 09/01/20 11:00 09/04/20 09:27 Rocephin 1 Gm-D5w 50 Ml Bag IV 10/01/20 10:59 100 mls/hr Q24H10 SIMBA Administration Magnesium Oxide 400 mg 08/31/20 22:00 09/04/20 09:26 Mag-Ox 400 PO 09/30/20 21:59 400 mg BID SIMBA Administration Methylprednisolone 8 mg 09/01/20 10:00 09/04/20 09:26 Medrol 4 Mg PO 10/01/20 09:59 8 mg DAILY SIMBA Administration Metolazone 2.5 mg 09/01/20 10:00 09/03/20 09:57 Zaroxolyn 2.5 Mg PO 10/01/20 09:59 2.5 mg Q48H SIMBA Administration Metoprolol Tartrate 50 mg 08/31/20 22:00 09/04/20 09:26 Lopressor 50 Mg PO 09/30/20 21:59 50 mg Q12HT SIMBA Administration Miscellaneous Information 0 each 09/01/20 08:15 Medication Intervention 10/01/20 08:14 .RN TO CHECK WITH PT SIMBA Morphine Sulfate 2 mg 08/31/20 16:15 08/31/20 17:01 Morphine Sulfate 2 Mg Inj IV 08/31/20 16:16 2 mg STAT ONE Administration Morphine Sulfate Confirm 08/31/20 16:45 Morphine Sulfate 2 Mg Inj Administered 08/31/20 16:46 Dose 2 mg .ROUTE .STK-MED ONE Pantoprazole Sodium 40 mg 09/01/20 10:00 09/04/20 09:26 Protonix 40mg Tablet PO 10/01/20 09:59 40 mg DAILY SIMBA Administration Piperacillin Sod/Tazobactam Sod Confirm 08/31/20 16:45 Zosyn 3.375 Gm Vial Administered 08/31/20 16:46 Dose 3.375 gm IV .STK-MED ONE Potassium Chloride 20 meq 08/31/20 22:00 08/31/20 22:28 Klor Con 10 Meq PO 09/30/20 21:59 20 meq HS SIMBA Administration Potassium Chloride 20 meq 09/01/20 22:00 09/03/20 22:49 Klor Con 10 Meq PO 09/30/20 21:59 20 meq HS SIMBA Administration Potassium Chloride 30 meq 09/01/20 10:00 09/04/20 09:25 Klor Con 10 Meq PO 10/01/20 09:59 30 meq DAILY SIMBA Administration Simvastatin 10 mg 08/31/20 22:00 09/03/20 22:49 Zocor 10mg PO 09/30/20 21:59 10 mg HS SIMBA Administration Intake & Output (Last 24 hours) 09/02/20 09/03/20 09/04/20 09/05/20 11:59 11:59 11:59 11:59 Intake Total 740 240 781 Output Total 3740 1340 1800 Balance -3000 -1100 -1019 Weight 77.4 kg Microbiology Results (Last 24 hours) 08/31/20 16:35 Blood Aerobic Culture - Pending 08/31/20 16:35 Blood Aerobic Organism ID Result 1 - Final Not Reportable 08/31/20 16:35 Blood Aerobic Culture - Pending 08/31/20 16:35 Blood Aerobic Organism ID Result 1 - Final Not Reportable 08/31/20 16:35 Blood Aerobic Organism ID Result 2 - Final Not Reportable 08/31/20 16:35 Blood Aerobic Organism ID Result 3 - Final Not Reportable 08/31/20 16:35 Blood Aerobic Organism ID Result 4 - Final Not Reportable 08/31/20 16:35 Blood Aerobic Bacterial Sensitivity - Final Not Reportable Orders (Last 24 hours) Category Date Time Status Discontinue Nuno Cath ROUTINE Care 09/04/20 14:26 Active Discharge Routine Discharge 09/04/20 13:25 Ordered PT Eval & Treat (MD Order) ONCE PT 09/04/20 10:21 Active Patient Care Notes (Last 24 hours) 09/04/20 15:57 Nursing Note by Anais Estevez I faxed patients chart to [facility] at [phone]. Initialized on 09/04/20 15:57 - END OF NOTE 09/04/20 15:54 Nursing Note by Luh Nuñez Patient taken by wheelchair with portable o2 to patient's daughter's POV. Patient adamant on being discharged today. Initialized on 09/04/20 15:54 - END OF NOTE 09/04/20 10:20 Case Management Note by Kate Royal PATIENT DENIES ANY CHANGE IN HIS DC PLAN. PATIENT PLANS TO RETURN HOME TO PRIOR LEVEL OF FUNCTIONING WITH FAMILY AND [facility] Initialized on 09/04/20 10:20 - END OF NOTE 09/04/20 09:13 Nursing Note by Gregoria Grier Dr. called for update before rounds. Culture and sensitivity results requested. Nurse called lab due to send out notification under labs. sensitivity will be back 96 hours from yesterday 09/03 per nursery laborer. Preliminary culture shows Gram negative rods. Last blood culture results obtained last month for gram negative rods that were also a send out, faxed to Dr. Cohen office. This nurse called [place] office and left a message with Dr. Cohen nurse concerning all of the above information Initialized on 09/04/20 09:13 - END OF NOTE - Vitals & Intake/Output Vital Signs: Vital Signs Temperature 98.7 F 09/04/20 12:00 Pulse Rate 74 09/04/20 13:11 Respiratory Rate 18 09/04/20 13:11 Blood Pressure 127/62 09/04/20 12:00 O2 Sat by Pulse Oximetry 96 09/04/20 13:11 Intake & Output: Intake & Output 09/02/20 09/03/20 09/04/20 09/05/20 11:59 11:59 11:59 11:59 Intake Total 740 240 781 Output Total 3740 1340 1800 Balance -3000 -1100 -1019 Weight 77.4 kg - Lab Result Diagrams: 09/02/20 09:35 09/02/20 09:30 Micro Results-Entire Visit: Microbiology 08/31/20 16:35 Aerobic Organism ID Result 1 - Final Blood Not Reportable 08/31/20 16:35 Aerobic Organism ID Result 1 - Final Blood Not Reportable Aerobic Organism ID Result 2 - Final Not Reportable Aerobic Organism ID Result 3 - Final Not Reportable Aerobic Organism ID Result 4 - Final Not Reportable Aerobic Bacterial Sensitivity - Final Not Reportable 08/31/20 16:35 Blood Culture Gram Stain - Final Blood Blood Culture - Preliminary ADDITIONAL TESTING IS REQUIRED TO OBTAIN ID AND SENSITIVITY. SPECIMEN HAS BEEN SENT TO REFERENCE LAB, WITH FINAL RESULT EXPECTED WITHIN 96 HOURS. 08/31/20 16:35 Blood Culture Gram Stain - Final Blood Blood Culture - Preliminary ADDITIONAL TESTING IS REQUIRED TO OBTAIN ID AND SENSITIVITY. SPECIMEN HAS BEEN SENT TO REFERENCE LAB, WITH FINAL RESULT EXPECTED WITHIN 96 HOURS. - Procedures and Test Procedures and Tests throughout Hospitalization: Therapy Orders & Screens 08/31/20 21:08 Respiratory Therapy Assessment DAILY Comment: Diagnosis: sepsis 08/31/20 21:09 Oxygen Nasal Cannula 3 lpm Comment: Diagnosis: sepsis Peak Expiratory Flow Rate ONCE Comment: Reason For Exam: Diagnosis: sepsis 08/31/20 22:10 PT Screen per Nursing Assess ONCE Comment: Protocol Order Physician Instructions: Greater than 3 points order PT Admission Screenin Reason For Exam: Triggered on Admission Diagnosis: sepsis, sec. flu Open Wound/Cellutlitis/Pressure Ulcers: Yes Acute Fx/ORIF/Change in wt bearing status: No Severe MUSCULOSKELETAL pain: No ADL Dysfunction: No Acute CVA w/Hemiparesis/Hemiplegia: No Decreased Functional Mobility/Strength: Yes Sprain/Strain: No Acute Post-op Mobility Dysfunction: No Total Points: 6 RT Screen per Nursing Assess ONCE Comment: Protocol Order Physician Instructions: Greater than 3 points order RT Admission Screen Reason For Exam: Triggered on Admission Diagnosis: sepsis, sec. flu Diagnosis: sepsis, sec. flu Pneumonia: No Home O2: Yes Asthma: No CHF: Yes Home CPAP/BIPAP: No Home Nebs/MDI: Yes Total Points: 13 09/04/20 10:21 PT Eval & Treat (MD Order) ONCE Reason for Eval:: WEAKNESS, BACK PAIN Diagnosis: SEPSIS, FLU B, FAILED OUTPATIENT Discharge Exam General Appearance: no apparent distress, alert Neurologic Exam: alert, oriented x 3, cooperative, normal mood/affect, nml cerebellar function, sensation nml, No motor deficits Eye Exam: PERRL, EOMI, eyes nml inspection Ears, Nose, Throat Exam: normal ENT inspection, pharynx normal, moist mucous membranes Neck Exam: normal inspection, non-tender, supple, full range of motion Respiratory Exam: normal breath sounds, lungs clear, No respiratory distress Cardiovascular Exam: regular rate/rhythm, normal heart sounds Gastrointestinal/Abdomen Exam: soft, No tenderness, No mass Male Genitalia Exam: deferred Rectal Exam: deferred Back Exam: normal inspection, normal range of motion, No CVA tenderness, No vertebral tenderness Extremity Exam: normal inspection, normal range of motion Skin Exam: normal color, warm, dry Wound Assessment: Skin/Wound Assessment Wound/Incision Assessment Start: 08/31/20 22:10 Text: Status: Active Freq: Q6H Protocol: Document 09/04/20 10:00 RN (Rec: 09/04/20 11:52 RN [id number]) Wound/Incision Assessment Buttock Wound Assessment Shift Assessment Wound Type Pressure Ulcer Wound Stage Stage II Drainage Amount None Drainage Odor None/Absent General Appearance Open to air Surrounding Tissue Nitro Comment stage 2 pressure ulcers noted to bilateral buttocks. barrier cream applied. Wound Photo Photo Taken No Comment: photos taken on admission Final Diagnosis/Problem List - Final Discharge Diagnosis/Problem (1) Influenza B Status: Acute Code(s): J10.1 - FLU DUE TO OTH IDENT INFLUENZA VIRUS W OTH RESP MANIFEST (2) Elevated troponin Status: Resolved Code(s): R77.8 - OTHER SPECIFIED ABNORMALITIES OF PLASMA PROTEINS (3) Renal insufficiency Status: Acute (4) CAD (coronary artery disease) Status: Chronic Priority: High Code(s): I25.10 - ATHSCL HEART DISEASE OF [place] CORONARY ARTERY W/O ANG PCTRS (5) CHF (congestive heart failure), NYHA class III Status: Chronic Code(s): I50.9 - HEART FAILURE, UNSPECIFIED (6) Positive blood cultures Status: Acute Code(s): R78.81 - BACTEREMIA - Discharge Discharge Date: 09/04/20 Disposition: HOME HEALTH SERVICE Condition: Stable Prescriptions: New Ciprofloxacin HCl [Cipro] 500 mg PO BID #14 tablet No Action Folic Acid 1 mg PO DAILY Magnesium Oxide 400 mg [Mag-Ox 400] 400 mg PO BID Methylprednisolone 4 mg [Medrol 4 mg] 8 mg PO DAILY Gabapentin [Neurontin] 100 mg PO DAILY azaTHIOprine [Azathioprine] 75 mg PO DAILY metOLazone [Metolazone] 2.5 mg PO Q48H Atorvastatin Calcium [Lipitor] 10 mg PO HS Potassium Chloride [Klor-Con 10] 30 meq PO DAILY Gabapentin 200 mg PO HS Albuterol 2.5 mg/3 ml Neb [Proventil 2.5 mg/3 ml Neb] 2.5 mg IH Q6H PRN PRN neb PRN Reason: Shortness Of Breath/Wheezing Famotidine 20 mg [Pepcid 20 MG] 20 mg PO BID #60 tablet PANTOPRAZOLE 40 mg Tablet [Protonix 40MG Tablet] 40 mg PO DAILY #30 tab Apixaban [Eliquis 2.5 mg Tablet] 2.5 mg PO BID #60 tablet Metoprolol Tartrate 50 mg [Lopressor 50 MG] 50 mg PO Q12HT #60 tablet Potassium Chloride [Klor-Con 10] 20 meq PO HS Bumetanide [Bumex] 2 mg PO BID Hydrocodone/Acetaminophen [Hydrocodone-Acetamin 5-325 mg] 1 each PO Q6H PRN PRN PRN Reason: Pain Instructions: Sepsis in Adults, Flu, Adult (DC), Pressure Sores (DC) Follow up with: SADIA GROVER MD [Primary Care Provider] - 09/18/20 1:45 pm (at [facility])
== END 2020-09-04 15:45 | disposition home health service (06) | DRG 194 ==
LOC: ED 16:11 → MED SURG 19:21 → OBSVTOIN 09-01 19:22
PROVIDERS: ADMIT General Practice; ATTEND General Practice
DX: J10.1 Influenza due to other identified influenza virus with other respiratory manifestations (principal); R78.81 Bacteremia; R10.30 Lower abdominal pain, unspecified; L89.322 Pressure ulcer of left buttock, stage 2; L89.312 Pressure ulcer of right buttock, stage 2; Z79.899 Other long term (current) drug therapy; J44.9 Chronic obstructive pulmonary disease, unspecified; Z86.73 Personal history of transient ischemic attack (TIA), and cerebral infarction without residual deficits; I10 Essential (primary) hypertension; E78.00 Pure hypercholesterolemia, unspecified; R77.8 Other specified abnormalities of plasma proteins; N28.9 Disorder of kidney and ureter, unspecified; I25.10 Atherosclerotic heart disease of native coronary artery without angina pectoris; I50.9 Heart failure, unspecified; Z79.01 Long term (current) use of anticoagulants; M47.819 Spondylosis without myelopathy or radiculopathy, site unspecified
CPT/HCPCS: 36000; 36415; 71045; 74176; 80053; 81001; 83605; 83690; 84484; 85025; 85027; 86850; 86900; 86901; 87040; 87077; 87400; 93005; 93041; 94640; 94760; 94762; 96360; 96365; 96374; 96375; 99285; G0378; U0003; J0696; J1756; J2270; J7609; A9270-GY; J3370

== ENCOUNTER 2020-09-28 11:03 | Inpatient (IN) | payer MEDICARE ==
[2020-09-28 11:11] LABS: A-aADO2 469; ABG HEMOGLOBIN 9.8; ABG POTASSIUM 3.9 (3.5-5.1); ARTERIAL BLD GAS O2 SATURATION 98.9 % (95-100); ARTERIAL BLOOD GAS FIO2 100 %; ARTERIAL BLOOD GAS PCO2 44 mmHg (35-45); ARTERIAL BLOOD GAS PO2 189 mmHg (75-100); ARTERIAL BLOOD GAS pH 7.49 (7.35-7.45); CARBOXYHEMOGLOBIN 1.3 % THgb (0.0-6.9); HCO3- 33.5 (22-28); HGB O2 SAT 97.2 g/dF (94-100); Methhemoglobin 0.4 % (1.4-1.5); paO2 pAO1 0.29
[2020-09-28 11:12] LABS: ABG SITE LEFT RADIAL; ALLEN TEST OK? YES
[2020-09-28] MEDS ORDERED: Sodium Chloride 0.9% 1000 ML 1,000 ML ONE (11:17)
[2020-09-28] MEDS ORDERED: Sodium Chloride 0.9% 1000 ML 1,000 ML IV STA (11:21)
[2020-09-28] MEDS ORDERED: FEVERALL 650 MG ONE (11:21)
[2020-09-28] MEDS ORDERED: Zosyn 3.375 GM Vial 3.375 GM in Sodium Chloride 100ML MINI-BAG PLUS 100 ML IV ONE (11:22)
[2020-09-28] MEDS ORDERED: Sodium Chloride 100ML MINI-BAG PLUS 100 ML IV ONE (11:23)
[2020-09-28] MEDS ORDERED: Zosyn 3.375 GM Vial IV ONE (11:23)
[2020-09-28] MEDS ORDERED: FEVERALL 650 MG PR ONE (11:41)
--- NOTE | 2020-09-28 11:55 | XRAY ---
Indication: Short of breath. History of lung carcinoma. Comparison: August 31, 2020. Portable chest unchanged again demonstrating left lower lung infiltrate/atelectasis, left hemithorax calcified pleural plaquing, borderline cardiomegaly, osteopenia, bony degenerative changes, and T8/T9/L1 kyphoplasty. No new/acute findings.
[2020-09-28 12:19] LABS: Hematocrit 27.6 % (42-50); Hemoglobin 8.4 gm/dl (12.5-18.0); Mean Cell Volume 106.2 fl (78-100); Mean Corpuscular Hemoglobin 32.3 pg (26-32); Mean Corpuscular Hgb Concent. 30.4 g/dl (32-36); Platelet Count 136 K/mm3 (150-450); Red Cell Distribution Width 21.8 % (11.5-14.0); White Blood Count 7.2 K/mm3 (4.0-10.5)
[2020-09-28 12:21] LABS: INR 1.4 (0.8-3.0); PROTIME 15.9 SECONDS (8.83-12.87)
[2020-09-28 12:23] LABS: PTT 28.2 SECONDS (24.1-36.1)
[2020-09-28 12:44] LABS: ALBUMIN 3.1 g/dL (3.5-5.0); ANION GAP 10.1 MEQ/L (5-15); BILIRUBIN,TOTAL 0.8 mg/dL (0.2-1.3); Calcium 8.3 mg/dL (8.4-10.2); Creatinine 1 2.38 mg/dL (0.66-1.25); EST GLOMERULAR FILTRATION RATE 28.2 ML/MIN; Potassium 3.8 mmol/L (3.5-5.1); Total Protein 6.1 g/dL (6.3-8.2)
--- NOTE | 2020-09-28 13:14 | ERPHSYRPT ---
- History of Present Illness Source: EMS Exam Limitations: clinical condition, other (Very poor historian) Patient Subjective Stated Complaint: ems STATES "We were called to his address for difficulty breathing. He was cyanotic and extremely lethargic. He was altered and not doing well." Triage Nursing Assessment: Pt presented alert and confused, cyanotic, on 15 lpm via nrb. Pt moving uncontrollably. Pt speaks but is confused. PT placed in room 7, bilat lines noted Physician History: 79 yo chronically ill wm w dyspnea/fever. Pt unable to give hx due to condition. Pt arrived on 100% O2 nonrebreater face mask. He was alert but oriented x0 upon arrival. Timing/Duration: today (today/chronic) Severity of Dyspnea-Max: severe Severity of Dyspnea-Current: severe Possible Cause: frequent episodes Allergies/Adverse Reactions: No Known Drug Allergies Allergy (Verified 08/31/20 20:38) Home Medications: Folic Acid 1 mg PO DAILY 01/28/15 [History] Magnesium Oxide 400 mg [Mag-Ox 400] 400 mg PO BID 04/03/15 [History] Methylprednisolone 4 mg [Medrol 4 mg] 8 mg PO DAILY 11/10/18 [History] Gabapentin [Neurontin] 100 mg PO DAILY 04/24/20 [History] azaTHIOprine [Azathioprine] 75 mg PO DAILY 04/24/20 [History] Atorvastatin Calcium [Lipitor] 10 mg PO HS 06/28/20 [History] Gabapentin 200 mg PO HS 06/28/20 [History] Potassium Chloride [Klor-Con 10] 30 meq PO DAILY 06/28/20 [History] metOLazone [Metolazone] 2.5 mg PO Q48H 06/28/20 [History] Bumetanide [Bumex] 2 mg PO BID 08/31/20 [History] Hydrocodone/Acetaminophen [Hydrocodone-Acetamin 5-325 mg] 1 each PO Q6H PRN PRN 08/31/20 [History] Potassium Chloride [Klor-Con 10] 20 meq PO HS 08/31/20 [History] Hx Tetanus, Diphtheria Vaccination/Date Given: Yes Hx Influenza Vaccination/Date Given: Yes Hx Pneumococcal Vaccination/Date Given: Yes Travel Risk - International Travel Have you traveled outside of the country in past 3 weeks: No - Coronavirus Screening Are you exhibiting any of the following symptoms?: Yes Symptoms: Shortness of Breath Close contact with a COVID-19 positive Pt in past 14-21 Days: No - Review of Systems All Other Systems: Unable due to condition - Past Medical History Pertinent Past Medical History: Yes Neurological History: TIA ENT History: Cataracts Cardiac History: Congestive Heart Failure, Coronary Artery Disease, High Cholesterol, Hypertension, Myocardial Infarction ([place]) Respiratory History: CHF, COPD, Lung Cancer, Pneumonia Endocrine Medical History: No Pertinent History Musculoskeletal History: No Pertinent History GI Medical History: GI Bleed, Other History: Other Psycho-Social History: No Pertinent History Male Reproductive Disorders: No Pertinent History Other Medical History: kidney failure, anemia with blood transfusion, Lung cancer left upper lobe - Past Surgical History Past Surgical History: Yes Neuro Surgical History: No Pertinent History Cardiac: Cardiac Catheterization, Cardiac Stent Respiratory: No Pertinent History Gastrointestinal: Appendectomy, Hernia Repair Genitourinary: No Pertinent History Musculoskeletal: Orthopedic Surgery Male Surgical History: No Pertinent History Other Surgical History: EGD/Colonoscopy 2016,. 2018 kyphoplasty t8-t9, cardiac stent x . 2019-lumbar back surgery - Social History Smoking Status: Former smoker How long have you smoked: 50 yrs Exposure to second hand smoke: No Drug Use: none Patient Lives Alone: No - Nursing Vital Signs Nursing Vital Signs: Initial Vital Signs Temperature 102.4 F 09/28/20 11:19 Pulse Rate 80 09/28/20 11:19 Respiratory Rate 28 H 09/28/20 11:19 O2 Sat by Pulse Oximetry 94 L 09/28/20 11:19 Pain Scale Pain Intensity 0 - Physical Exam General Appearance: severe distress (Lethargic/Maintaining airway/Good sats) Eye Exam: PERRL/EOMI, eyes nml inspection Neck Exam: normal inspection, No Brudzinski, No Kernig's, No meningismus, No JVD Respiratory Exam: respiratory distress (Severe respiratory distress/Pt on 100% nonrebreather face mask/Rales at base B(poor effort by pt)), other Cardiovascular/Chest Exam: normal heart sounds, murmur (3/6 SHANNA), tachycardia Abdominal/Gastrointestinal Exam: soft, normal bowel sounds Extremity Exam: non-tender Peripheral Pulses Exam: carotid (R): 2+, carotid (L): 2+ Neurologic Exam: other (Pt minimally alert but maintaining airway upon arrival), No facial droop Skin Exam: mottled, pale Lymphatic Exam: No adenopathy SpO2 Interpretation: normal SpO2: 94 O2 Delivery: Non-rebreather - Course EKG Interpreted by Me: RATE (NSR/Possible old inferior [place]/Normal QT-QTc/ST-T wave changes(nonspecific-artifact)) - Radiology Exams Chest X-ray Interpretation: Discussed w/ radiologist (LLL infiltrate/atelectasis) Ordered Tests: Active Orders 24 hr Category Date Time Status EKG-ER Only STAT Care 09/28/20 11:08 Completed CHEST 1 VIEW (PORTABLE) Stat Exams 09/28/20 11:08 Completed ABG [ARTERIAL BLOOD GASES] Stat Lab 09/28/20 11:09 Completed BLOOD CULTURE Stat Lab 09/28/20 11:35 Received BMP AM.LAB Lab 09/29/20 04:00 Ordered CBC W DIFF Stat Lab 09/28/20 11:35 Completed CMP Stat Lab 09/28/20 11:35 Completed CULTURE,URINE Stat Lab 09/28/20 13:22 Ordered Lactic Acid Stat Lab 09/28/20 11:09 Completed Lactic Acid Stat Lab 09/28/20 14:45 Completed Manual Differential NC Stat Lab 09/28/20 11:35 Completed NT PRO BNP Stat Lab 09/28/20 11:35 Completed PROTIME WITH INR Stat Lab 09/28/20 11:35 Completed PTT Stat Lab 09/28/20 11:35 Completed TROPONIN Q3H Lab 09/28/20 11:35 Completed TROPONIN Q3H Lab 09/28/20 14:15 Completed TROPONIN Q3H Lab 09/28/20 18:15 Completed TROPONIN Q3H Lab 09/28/20 20:15 Ordered TROPONIN Q3H Lab 09/28/20 23:15 Ordered UA W/RFX UR CULTURE Stat Lab 09/28/20 12:00 Completed Transfer Order Routine Transfer 09/28/20 Completed Medication Summary Generic Name Dose Route Start Last Admin Trade Name Freq PRN Reason Stop Dose Admin Albuterol Sulfate 2.5 mg 09/28/20 19:00 09/28/20 19:42 Proventil 2.5 Mg/3 Ml Neb IH 10/28/20 18:59 2.5 mg TIDRT SIMBA Administration Piperacillin Sod/Tazobactam 100 mls @ 200 mls/hr 09/28/20 22:00 Sod 3.375 gm/ Sodium Chloride IV 10/28/20 21:59 Q8HT SIMBA Azithromycin 500 mg in 250 mls @ 125 mls/hr 09/29/20 18:00 Zithromax 500 Mg/ 250 Ml Nacl Premix IV 10/29/20 17:59 1800 SIMBA Discontinued Medications Generic Name Dose Route Start Last Admin Trade Name Freq PRN Reason Stop Dose Admin Acetaminophen Confirm 09/28/20 11:21 Feverall 650 Mg Administered 09/28/20 11:22 Dose 650 mg .ROUTE .STK-MED ONE Acetaminophen 650 mg 09/28/20 11:41 09/28/20 11:44 Feverall 650 Mg DC 09/28/20 11:42 650 mg STAT ONE Administration Sodium Chloride Confirm 09/28/20 11:17 Sodium Chloride 0.9% 1000 Ml Administered 09/28/20 11:18 Dose 1,000 mls @ ud .ROUTE .STK-MED ONE Sodium Chloride 1,000 mls @ 999 mls/hr 09/28/20 11:21 09/28/20 13:10 Sodium Chloride 0.9% 1000 Ml IV 09/28/20 12:21 Infused .Q1H1M STA Infusion Piperacillin Sod/Tazobactam 100 mls @ 200 mls/hr 09/28/20 11:22 09/28/20 11:44 Sod 3.375 gm/ Sodium Chloride IV 09/28/20 11:51 200 mls/hr STAT ONE Administration Sodium Chloride Confirm 09/28/20 11:23 Sodium Chloride 100ml Mini-Bag Plus Administered 09/28/20 11:24 Dose 100 mls @ ud IV .STK-MED ONE Azithromycin 500 mg in 250 mls @ 250 mls/hr 09/29/20 10:00 Zithromax 500 Mg/ 250 Ml Nacl Premix IV 10/29/20 09:59 Q24H10 SIMBA Piperacillin Sod/Tazobactam 100 mls @ 200 mls/hr 09/29/20 00:00 Sod 3.375 gm/ Sodium Chloride IV 10/29/20 00:00 Q6HT SIMBA Piperacillin Sod/Tazobactam Sod Confirm 09/28/20 11:23 Zosyn 3.375 Gm Vial Administered 09/28/20 11:24 Dose 3.375 gm IV .STK-MED ONE Lab/Rad Data: Laboratory Result Diagrams 09/28/20 11:35 09/28/20 11:35 Laboratory Results 09/28/20 09/28/20 09/28/20 Range/Units 15:18 14:45 14:15 WBC (4.0-10.5) K/mm3 RBC (4.1-5.6) M/mm3 Hgb (12.5-18.0) gm/dl Hct (42-50) % MCV (78-100) fl MCH (26-32) pg MCHC (32-36) g/dl RDW (11.5-14.0) % Plt Count (150-450) K/mm3 MPV (7.5-11.0) fl Segmented Neutrophils (36.-66.) % Band Neutrophils (0.0-2.0) % Lymphocytes (Manual) (24-44) % Monocytes (Manual) (0.0-12.0) % Platelet Estimate (NORMAL) RBC Morphology PT (8.83-12.87) SECONDS INR (0.8-3.0) APTT (24.1-36.1) SECONDS Puncture Site pCO2 (35-45) mmHg pO2 (75-100) mmHg Base Excess (-2.0-2.0) O2 Saturation (94-100) g/dF ABG pH (7.35-7.45) ABG HCO3 (22-28) ABG O2 Sat (Measured) (95-100) % Sunday Test A-a Gradient a/A Ratio Hemoglobin Carboxyhemoglobin (0.0-6.9) % THgb Methemoglobin (1.4-1.5) % Potassium (3.5-5.1) Temperature C POC O2 Flow Rate % Sodium (137-145) mmol/L Chloride (98-107) mmol/L Carbon Dioxide (22-30) mmol/L Anion Gap (5-15) MEQ/L BUN (9-20) mg/dL Creatinine (0.66-1.25) mg/dL Estimated GFR ML/MIN Glucose (74-106) mg/dL Lactic Acid 1.8 (0.4-2.0) Calcium (8.4-10.2) mg/dL Total Bilirubin (0.2-1.3) mg/dL AST (17-59) U/L ALT (0-50) U/L Alkaline Phosphatase (38-126) U/L Troponin I 0.123 H* (0.000-0.034) ng/mL NT-Pro-B Natriuret Pep (0-1800) pg/mL Serum Total Protein (6.3-8.2) g/dL Albumin (3.5-5.0) g/dL Urine Color (YELLOW) Urine Appearance (CLEAR) Urine pH (5-6) Ur Specific [place] (1.005-1.025) Urine Protein (Negative) Urine Ketones (NEGATIVE) Urine Blood (0-5) Marcelino/ul Urine Nitrite (NEGATIVE) Urine Bilirubin (NEGATIVE) Urine Urobilinogen (0-1) mg/dL Ur Leukocyte Esterase (NEGATIVE) Urine WBC (Auto) (0-5) /HPF Urine RBC (Auto) (0-2) /HPF U Hyaline Cast (Auto) (0-2) /LPF U Epithel Cells (Auto) (FEW) /HPF Urine Bacteria (Auto) (NEGATIVE) /HPF Urine Mucus (Auto) (NEGATIVE) /HPF Urine Culture Reflexed (NO) Urine Glucose (NEGATIVE) mg/dL SARS-CoV-2 (PCR) NEGATIVE (NEGATIVE) 09/28/20 09/28/20 09/28/20 Range/Units 12:00 11:35 11:35 WBC (4.0-10.5) K/mm3 RBC (4.1-5.6) M/mm3 Hgb (12.5-18.0) gm/dl Hct (42-50) % MCV (78-100) fl MCH (26-32) pg MCHC (32-36) g/dl RDW (11.5-14.0) % Plt Count (150-450) K/mm3 MPV (7.5-11.0) fl Segmented Neutrophils (36.-66.) % Band Neutrophils (0.0-2.0) % Lymphocytes (Manual) (24-44) % Monocytes (Manual) (0.0-12.0) % Platelet Estimate (NORMAL) RBC Morphology PT 15.9 H (8.83-12.87) SECONDS INR 1.40 (0.8-3.0) APTT 28.2 (24.1-36.1) SECONDS Puncture Site pCO2 (35-45) mmHg pO2 (75-100) mmHg Base Excess (-2.0-2.0) O2 Saturation (94-100) g/dF ABG pH (7.35-7.45) ABG HCO3 (22-28) ABG O2 Sat (Measured) (95-100) % Sunday Test A-a Gradient a/A Ratio Hemoglobin Carboxyhemoglobin (0.0-6.9) % THgb Methemoglobin (1.4-1.5) % Potassium (3.5-5.1) Temperature C POC O2 Flow Rate % Sodium (137-145) mmol/L Chloride (98-107) mmol/L Carbon Dioxide (22-30) mmol/L Anion Gap (5-15) MEQ/L BUN (9-20) mg/dL Creatinine (0.66-1.25) mg/dL Estimated GFR ML/MIN Glucose (74-106) mg/dL Lactic Acid (0.4-2.0) Calcium (8.4-10.2) mg/dL Total Bilirubin (0.2-1.3) mg/dL AST (17-59) U/L ALT (0-50) U/L Alkaline Phosphatase (38-126) U/L Troponin I 0.104 H* (0.000-0.034) ng/mL NT-Pro-B Natriuret Pep (0-1800) pg/mL Serum Total Protein (6.3-8.2) g/dL Albumin (3.5-5.0) g/dL Urine Color YELLOW (YELLOW) Urine Appearance CLEAR (CLEAR) Urine pH 5.0 (5-6) Ur Specific [place] 1.013 (1.005-1.025) Urine Protein NEGATIVE (Negative) Urine Ketones NEGATIVE (NEGATIVE) Urine Blood NEGATIVE (0-5) Marcelino/ul Urine Nitrite NEGATIVE (NEGATIVE) Urine Bilirubin NEGATIVE (NEGATIVE) Urine Urobilinogen NEGATIVE (0-1) mg/dL Ur Leukocyte Esterase NEGATIVE (NEGATIVE) Urine WBC (Auto) NONE (0-5) /HPF Urine RBC (Auto) 0-2 (0-2) /HPF U Hyaline Cast (Auto) 0-2 (0-2) /LPF U Epithel Cells (Auto) RARE (FEW) /HPF Urine Bacteria (Auto) NONE (NEGATIVE) /HPF Urine Mucus (Auto) SLIGHT (NEGATIVE) /HPF Urine Culture Reflexed ORDERED SEPARATELY (NO) Urine Glucose NEGATIVE (NEGATIVE) mg/dL SARS-CoV-2 (PCR) (NEGATIVE) 09/28/20 09/28/20 09/28/20 Range/Units 11:35 11:35 11:09 WBC 7.2 (4.0-10.5) K/mm3 RBC 2.60 L (4.1-5.6) M/mm3 Hgb 8.4 L (12.5-18.0) gm/dl Hct 27.6 L (42-50) % MCV 106.2 H (78-100) fl MCH 32.3 H (26-32) pg MCHC 30.4 L (32-36) g/dl RDW 21.8 H (11.5-14.0) % Plt Count 136 L (150-450) K/mm3 MPV 10.0 (7.5-11.0) fl Segmented Neutrophils 86 H (36.-66.) % Band Neutrophils 6 H (0.0-2.0) % Lymphocytes (Manual) 4 L (24-44) % Monocytes (Manual) 4 (0.0-12.0) % Platelet Estimate DECREASED (NORMAL) RBC Morphology NORMAL PT (8.83-12.87) SECONDS INR (0.8-3.0) APTT (24.1-36.1) SECONDS Puncture Site pCO2 (35-45) mmHg pO2 (75-100) mmHg Base Excess (-2.0-2.0) O2 Saturation (94-100) g/dF ABG pH (7.35-7.45) ABG HCO3 (22-28) ABG O2 Sat (Measured) (95-100) % Sunday Test A-a Gradient a/A Ratio Hemoglobin Carboxyhemoglobin (0.0-6.9) % THgb Methemoglobin (1.4-1.5) % Potassium 3.8 (3.5-5.1) Temperature C POC O2 Flow Rate % Sodium 137 (137-145) mmol/L Chloride 94 L (98-107) mmol/L Carbon Dioxide 37 H (22-30) mmol/L Anion Gap 10.1 (5-15) MEQ/L BUN 58 H (9-20) mg/dL Creatinine 2.38 H (0.66-1.25) mg/dL Estimated GFR 28.2 ML/MIN Glucose 192 H (74-106) mg/dL Lactic Acid 5.4 H (0.4-2.0) Calcium 8.3 L (8.4-10.2) mg/dL Total Bilirubin 0.80 (0.2-1.3) mg/dL AST 39 (17-59) U/L ALT 16 (0-50) U/L Alkaline Phosphatase 109 (38-126) U/L Troponin I (0.000-0.034) ng/mL NT-Pro-B Natriuret Pep 2140 H (0-1800) pg/mL Serum Total Protein 6.1 L (6.3-8.2) g/dL Albumin 3.1 L (3.5-5.0) g/dL Urine Color (YELLOW) Urine Appearance (CLEAR) Urine pH (5-6) Ur Specific [place] (1.005-1.025) Urine Protein (Negative) Urine Ketones (NEGATIVE) Urine Blood (0-5) Marcelino/ul Urine Nitrite (NEGATIVE) Urine Bilirubin (NEGATIVE) Urine Urobilinogen (0-1) mg/dL Ur Leukocyte Esterase (NEGATIVE) Urine WBC (Auto) (0-5) /HPF Urine RBC (Auto) (0-2) /HPF U Hyaline Cast (Auto) (0-2) /LPF U Epithel Cells (Auto) (FEW) /HPF Urine Bacteria (Auto) (NEGATIVE) /HPF Urine Mucus (Auto) (NEGATIVE) /HPF Urine Culture Reflexed (NO) Urine Glucose (NEGATIVE) mg/dL SARS-CoV-2 (PCR) (NEGATIVE) 09/28/20 Range/Units 11:09 WBC (4.0-10.5) K/mm3 RBC (4.1-5.6) M/mm3 Hgb (12.5-18.0) gm/dl Hct (42-50) % MCV (78-100) fl MCH (26-32) pg MCHC (32-36) g/dl RDW (11.5-14.0) % Plt Count (150-450) K/mm3 MPV (7.5-11.0) fl Segmented Neutrophils (36.-66.) % Band Neutrophils (0.0-2.0) % Lymphocytes (Manual) (24-44) % Monocytes (Manual) (0.0-12.0) % Platelet Estimate (NORMAL) RBC Morphology PT (8.83-12.87) SECONDS INR (0.8-3.0) APTT (24.1-36.1) SECONDS Puncture Site LEFT RADIAL pCO2 44 (35-45) mmHg pO2 189 H* (75-100) mmHg Base Excess 9.0 H (-2.0-2.0) O2 Saturation 97.2 (94-100) g/dF ABG pH 7.49 H (7.35-7.45) ABG HCO3 33.5 H* (22-28) ABG O2 Sat (Measured) 98.9 (95-100) % Sunday Test YES A-a Gradient 469 a/A Ratio 0.29 Hemoglobin 9.8 Carboxyhemoglobin 1.3 (0.0-6.9) % THgb Methemoglobin 0.4 L (1.4-1.5) % Potassium 3.9 (3.5-5.1) Temperature 37.0 C POC O2 Flow Rate 100 % Sodium (137-145) mmol/L Chloride (98-107) mmol/L Carbon Dioxide (22-30) mmol/L Anion Gap (5-15) MEQ/L BUN (9-20) mg/dL Creatinine (0.66-1.25) mg/dL Estimated GFR ML/MIN Glucose (74-106) mg/dL Lactic Acid (0.4-2.0) Calcium (8.4-10.2) mg/dL Total Bilirubin (0.2-1.3) mg/dL AST (17-59) U/L ALT (0-50) U/L Alkaline Phosphatase (38-126) U/L Troponin I (0.000-0.034) ng/mL NT-Pro-B Natriuret Pep (0-1800) pg/mL Serum Total Protein (6.3-8.2) g/dL Albumin (3.5-5.0) g/dL Urine Color (YELLOW) Urine Appearance (CLEAR) Urine pH (5-6) Ur Specific [place] (1.005-1.025) Urine Protein (Negative) Urine Ketones (NEGATIVE) Urine Blood (0-5) Marcelino/ul Urine Nitrite (NEGATIVE) Urine Bilirubin (NEGATIVE) Urine Urobilinogen (0-1) mg/dL Ur Leukocyte Esterase (NEGATIVE) Urine WBC (Auto) (0-5) /HPF Urine RBC (Auto) (0-2) /HPF U Hyaline Cast (Auto) (0-2) /LPF U Epithel Cells (Auto) (FEW) /HPF Urine Bacteria (Auto) (NEGATIVE) /HPF Urine Mucus (Auto) (NEGATIVE) /HPF Urine Culture Reflexed (NO) Urine Glucose (NEGATIVE) mg/dL SARS-CoV-2 (PCR) (NEGATIVE) - Progress Progress: improved Air Movement: good Progress Note: 09/28/20 16:[address] De La Torre 09/28/20 19:55 IV access started and 2L NS bolus given along w blood cultures x2/3.375mg IV Zosyn. Pt responded to fluid resuscitation and became more alert and oriented x2. Initial ABG adequate, and pt weaned from 100% nonrebreater face mask to NC at 3L. Spoke w pt's niece x2 and related pt's condition. Niece stated that pt was checked on at 9:30AM and found to be unresponsive/mottled/low sats at home. Pt has been in poor health w recent admit for influenza and is currently being worked up for possible bone mets due to previously treated lung ca. 09/28/20 19:59 Counseled pt/family regarding: lab results, diagnosis, rad results - Departure Departure Disposition: Observation Clinical Impression: Pneumonia Condition: Stable Critical Care Time: Yes Critical Care Time(excluding separately billable procedures): Critical 30-74 mins
[2020-09-28 13:18] LABS: BAND 6 % (0.0-2.0); Lymphocytes 4 % (24-44); Monocyte 4 % (0.0-12.0); Neutrophils 86 % (36.-66.); Platelet Estimate DECREASED (NORMAL); Total Cells Counted 100
[2020-09-28 13:20] LABS: Appearance CLEAR (CLEAR); Bilirubin NEGATIVE (NEGATIVE); Blood NEGATIVE Ery/ul (0-5); Epithelial Cells RARE /HPF (FEW); Glucose NEGATIVE (NEGATIVE); Hyaline Casts 0-2 /LPF (0-2); Ketones NEGATIVE (NEGATIVE); Leukocyte Esterase NEGATIVE (NEGATIVE); Mucus SLIGHT /HPF (NEGATIVE); Nitrite NEGATIVE (NEGATIVE); Protein,Urine Dip NEGATIVE (Negative); RBC 0-2 /HPF (0-2); Specific Gravity 1.013 (1.005-1.025); Urobilinogen NEGATIVE mg/dL (0-1)
[2020-09-28] MEDS: PROVENTIL 2.5 MG/3 ML NEB IH SCH (19:42)
[2020-09-28] MEDS: Zosyn 3.375 GM Vial 3.375 GM in Sodium Chloride 100ML MINI-BAG PLUS 100 ML IV SCH (22:21)
[2020-09-29] MEDS ORDERED: Zosyn 3.375 GM Vial 3.375 GM in Sodium Chloride 100ML MINI-BAG PLUS 100 ML IV SCH ×2
[2020-09-29] MEDS: Zosyn 3.375 GM Vial 3.375 GM in Sodium Chloride 100ML MINI-BAG PLUS 100 ML IV SCH ×3 (05:12→22:50)
[2020-09-29 06:05] LABS: ANION GAP 8.9 MEQ/L (5-15); Calcium 8.1 mg/dL (8.4-10.2); Creatinine 1 2.69 mg/dL (0.66-1.25); EST GLOMERULAR FILTRATION RATE 24.5 ML/MIN; Potassium 3.4 mmol/L (3.5-5.1)
[2020-09-29] MEDS: PROVENTIL 2.5 MG/3 ML NEB IH SCH ×3 (06:35→18:29)
[2020-09-29] MEDS ORDERED: Sodium Chloride 0.9% 10 ML FLUSH Syringe IV PRN (07:15)
[2020-09-29] MEDS ORDERED: METOLAZONE 2.5 MG PO SCH (07:30)
[2020-09-29] MEDS ORDERED: AZATHIOPRINE 75 MG PO SCH (10:00)
[2020-09-29] MEDS ORDERED: NON-FORMULARY ITEM (Bumetanide [Bumex] 2 MG) PO SCH (10:00)
[2020-09-29] MEDS ORDERED: Zithromax 500 MG/ 250 ML NaCl Premix 500 MG/250 ML IVPB IV SCH (10:00)
[2020-09-29] MEDS: Klor Con 10 MEQ PO SCH ×2 (10:10→22:50)
[2020-09-29] MEDS: MAG-OX 400 PO SCH ×2 (10:10→22:50)
[2020-09-29] MEDS: ELIQUIS 2.5 MG TABLET PO SCH ×2 (10:10→22:51)
[2020-09-29] MEDS: BUMEX 1 MG PO SCH ×2 (10:10→16:43)
[2020-09-29] MEDS: Zaroxolyn 2.5 MG PO SCH (10:10)
[2020-09-29] MEDS: Pepcid 20 MG PO SCH ×2 (10:10→22:51)
[2020-09-29] MEDS: Protonix 40MG Tablet PO SCH (10:10)
[2020-09-29] MEDS: FOLATE 1 MG PO SCH (10:10)
[2020-09-29] MEDS: Neurontin 100 MG PO SCH (10:11)
[2020-09-29] MEDS: Lopressor 50 MG PO SCH ×2 (10:11→22:50)
[2020-09-29] MEDS: MEDICATION INTERVENTION MC SCH (10:19)
--- NOTE | 2020-09-29 11:16 | PCM.HP ---
History of Present Illness - Chief Complaint Chief Complaint: shortness of breath for 1-2 days History of Present Illness: is a 79 year old male. chronically ill wm w dyspnea/fever. Pt unable to give hx due to condition. Pt arrived on 100% O2 nonrebreater face mask. He was alert but oriented x0 upon arrival. Timing/Duration: today (today/chronic) Severity of Dyspnea-Max: severe Severity of Dyspnea-Current: severe - Review of Systems Constitutional: No Fever, No Chills Eyes: No Symptoms Ears, Nose, & Throat: No Symptoms Respiratory: Cough, Orthopnea, Short Of Breath Cardiac: Palpitations, Orthopnea, No Chest Pain, No Edema, No Syncope Abdominal/Gastrointestinal: No Abdominal Pain, No Nausea, No Vomiting, No Diarrhea Genitourinary Symptoms: No Dysuria Musculoskeletal: No Back Pain, No Neck Pain Skin: No Rash Neurological: No Dizziness, No Focal Weakness, No Sensory Changes Psychological: No Symptoms Endocrine: No Symptoms Hematologic/Lymphatic: No Symptoms Immunological/Allergic: No Symptoms Medications & Allergies Home Medications: Home Medication List Folic Acid 1 mg PO DAILY 01/28/15 [History Confirmed 09/28/20] Magnesium Oxide 400 mg [Mag-Ox 400] 400 mg PO BID 04/03/15 [History Confirmed 09/28/20] Gabapentin [Neurontin] 100 mg PO DAILY 04/24/20 [History Confirmed 09/28/20] azaTHIOprine [Azathioprine] 75 mg PO DAILY 04/24/20 [History Confirmed 09/28/20] Atorvastatin Calcium [Lipitor] 10 mg PO HS 06/28/20 [History Confirmed 09/28/20] Gabapentin 400 mg PO HS 06/28/20 [History Confirmed 09/29/20] Potassium Chloride [Klor-Con 10] 30 meq PO DAILY 06/28/20 [History Confirmed 09/28/20] metOLazone [Metolazone] 2.5 mg PO Q48H 06/28/20 [History Confirmed 09/28/20] Albuterol 2.5 mg/3 ml Neb [Proventil 2.5 mg/3 ml Neb] 2.5 mg IH Q6H PRN PRN neb 07/01/20 [Rx Confirmed 09/28/20] Apixaban [Eliquis 2.5 mg Tablet] 2.5 mg PO BID #60 tablet 07/01/20 [Rx Confirmed 09/28/20] Famotidine 20 mg [Pepcid 20 MG] 20 mg PO BID #60 tablet 07/01/20 [Rx Confirmed 09/28/20] PANTOPRAZOLE 40 mg Tablet [Protonix 40MG Tablet] 40 mg PO DAILY #30 tab 07/01/20 [Rx Confirmed 09/28/20] Metoprolol Tartrate 50 mg [Lopressor 50 MG] 50 mg PO Q12HT #60 tablet 08/10/20 [Rx Confirmed 09/28/20] Bumetanide [Bumex] 2 mg PO BID 08/31/20 [History Confirmed 09/28/20] Potassium Chloride [Klor-Con 10] 20 meq PO HS 08/31/20 [History Confirmed 09/28/20] Allergies/Adverse Reactions: Allergies Allergy/AdvReac Type Severity Reaction Status Date / Time No Known Drug Allergies Allergy Verified 08/31/20 20:38 - Past Medical History Past Medical History: Yes Neurological History: TIA ENT History: Cataracts Cardiac History: Congestive Heart Failure, Coronary Artery Disease, High Cholesterol, Hypertension, Myocardial Infarction ([place]) Respiratory History: CHF, COPD, Lung Cancer, Pneumonia Endocrine Medical History: No Pertinent History Musculoskelatal History: No Pertinent History GI Medical History: GI Bleed, Other History: Other Pyscho-Social History: No Pertinent History Male Reproductive Disorders: No Pertinent History Comment: kidney failure, anemia with blood transfusion, Lung cancer left upper lobe - Past Surgical History Past Surgical History: Yes Neuro Surgical History: No Pertinent History Cardiac History: Cardiac Catheterization, Cardiac Stent Respiratory Surgery: No Pertinent History GI Surgical History: Appendectomy, Hernia Repair Genitourinary Surgical Hx: No Pertinent History Musculskeletal Surgical Hx: Orthopedic Surgery Male Surgical History: No Pertinent History Other Surgical History: EGD/Colonoscopy 2016,. 2019 kyphoplasty t8-t9, cardiac stent x 2. 2020-lumbar back surgery - Social History Smoking Status: Former smoker How long have you smoked: 50 yrs Exposure to second hand smoke: No Alcohol: None Drug Use: none - Physical Exam Vital Signs: Vital Signs - 24 hr Temp Pulse Resp BP BP Pulse Ox 09/29/20 10:48 98.4 F 77 18 122/60 94 L 12/11/20 08:00 67 09/29/20 07:50 97.7 F 67 16 101/53 97 09/29/20 06:37 67 16 97 09/29/20 04:00 98.3 F 77 20 140/54 100 09/29/20 00:01 76 09/29/20 00:00 98.3 F 70 17 110/53 97 09/28/20 20:16 94 L 09/28/20 20:00 97.7 F 76 19 127/49 100 09/28/20 19:59 83 22 98 09/28/20 18:24 99.3 F 80 16 91/44 98 09/28/20 18:10 99.3 F 80 16 91/44 94 L 09/28/20 17:44 99.3 F 80 16 91/44 94 L 09/28/20 14:10 72 20 104/60 96 09/28/20 13:08 76 15 98/59 98 09/28/20 12:15 100.0 F 81 20 122/67 94 L 09/28/20 12:08 85 20 122/67 95 09/28/20 11:19 102.4 F 80 28 H 94 L Oxygen-Last 24 hours Oxygen Flowrate (L/min)-RT 3 Oxygen Flowrate (L/min)-RT 3 General Appearance: no apparent distress, alert Neurologic Exam: alert, oriented x 3, cooperative, normal mood/affect, nml cerebellar function, nml station & gait, sensation nml, No motor deficits Eye Exam: PERRL/EOMI, eyes nml inspection Ears, Nose, Throat Exam: normal ENT inspection, TMs normal, pharynx normal, moist mucous membranes Neck Exam: normal inspection, non-tender, supple, full range of motion Respiratory Exam: crackles/rales, rhonchi, wheezing, No respiratory distress Cardiovascular Exam: regular rate/rhythm, normal heart sounds, normal peripheral pulses Gastrointestinal/Abdomen Exam: soft, normal bowel sounds, No tenderness, No mass Back Exam: normal inspection, normal range of motion, No CVA tenderness, No vertebral tenderness Extremity Exam: normal inspection, normal range of motion, pelvis stable Skin Exam: normal color, warm, dry, No rash Wound Assessment: Skin/Wound Assessment Wound/Incision Assessment Start: 09/28/20 19:05 Text: Status: Active Freq: Q6H Protocol: Document 09/29/20 08:00 MW (Rec: 09/29/20 09:56 MW [id number]) Wound Photo Photo Taken Yes Date: 09/28/20 Time: 18:00 Comment: See Chart Lymphatic Exam: No adenopathy Results - Labs Lab/Micro Results: Lab Results-Last 24 Hours 09/28/20 09/28/20 09/28/20 Range/Units 11:35 11:35 11:35 WBC 7.2 (4.0-10.5) K/mm3 RBC 2.60 L (4.1-5.6) M/mm3 Hgb 8.4 L (12.5-18.0) gm/dl Hct 27.6 L (42-50) % MCV 106.2 H (78-100) fl MCH 32.3 H (26-32) pg MCHC 30.4 L (32-36) g/dl RDW 21.8 H (11.5-14.0) % Plt Count 136 L (150-450) K/mm3 MPV 10.0 (7.5-11.0) fl Segmented Neutrophils 86 H (36.-66.) % Band Neutrophils 6 H (0.0-2.0) % Lymphocytes (Manual) 4 L (24-44) % Monocytes (Manual) 4 (0.0-12.0) % Platelet Estimate DECREASED (NORMAL) RBC Morphology NORMAL PT 15.9 H (8.83-12.87) SECONDS INR 1.40 (0.8-3.0) APTT 28.2 (24.1-36.1) SECONDS Sodium 137 (137-145) mmol/L Potassium 3.8 (3.5-5.1) mmol/L Chloride 94 L (98-107) mmol/L Carbon Dioxide 37 H (22-30) mmol/L Anion Gap 10.1 (5-15) MEQ/L BUN 58 H (9-20) mg/dL Creatinine 2.38 H (0.66-1.25) mg/dL Estimated GFR 28.2 ML/MIN Glucose 192 H (74-106) mg/dL Lactic Acid (0.4-2.0) Calcium 8.3 L (8.4-10.2) mg/dL Total Bilirubin 0.80 (0.2-1.3) mg/dL AST 39 (17-59) U/L ALT 16 (0-50) U/L Alkaline Phosphatase 109 (38-126) U/L Troponin I (0.000-0.034) ng/mL NT-Pro-B Natriuret Pep 2140 H (0-1800) pg/mL Serum Total Protein 6.1 L (6.3-8.2) g/dL Albumin 3.1 L (3.5-5.0) g/dL Urine Color (YELLOW) Urine Appearance (CLEAR) Urine pH (5-6) Ur Specific [place] (1.005-1.025) Urine Protein (Negative) Urine Ketones (NEGATIVE) Urine Blood (0-5) Marcelino/ul Urine Nitrite (NEGATIVE) Urine Bilirubin (NEGATIVE) Urine Urobilinogen (0-1) mg/dL Ur Leukocyte Esterase (NEGATIVE) Urine WBC (Auto) (0-5) /HPF Urine RBC (Auto) (0-2) /HPF U Hyaline Cast (Auto) (0-2) /LPF U Epithel Cells (Auto) (FEW) /HPF Urine Bacteria (Auto) (NEGATIVE) /HPF Urine Mucus (Auto) (NEGATIVE) /HPF Urine Culture Reflexed (NO) Urine Glucose (NEGATIVE) mg/dL SARS-CoV-2 (PCR) (NEGATIVE) 09/28/20 09/28/20 09/28/20 Range/Units 11:35 12:00 14:15 WBC (4.0-10.5) K/mm3 RBC (4.1-5.6) M/mm3 Hgb (12.5-18.0) gm/dl Hct (42-50) % MCV (78-100) fl MCH (26-32) pg MCHC (32-36) g/dl RDW (11.5-14.0) % Plt Count (150-450) K/mm3 MPV (7.5-11.0) fl Segmented Neutrophils (36.-66.) % Band Neutrophils (0.0-2.0) % Lymphocytes (Manual) (24-44) % Monocytes (Manual) (0.0-12.0) % Platelet Estimate (NORMAL) RBC Morphology PT (8.83-12.87) SECONDS INR (0.8-3.0) APTT (24.1-36.1) SECONDS Sodium (137-145) mmol/L Potassium (3.5-5.1) mmol/L Chloride (98-107) mmol/L Carbon Dioxide (22-30) mmol/L Anion Gap (5-15) MEQ/L BUN (9-20) mg/dL Creatinine (0.66-1.25) mg/dL Estimated GFR ML/MIN Glucose (74-106) mg/dL Lactic Acid (0.4-2.0) Calcium (8.4-10.2) mg/dL Total Bilirubin (0.2-1.3) mg/dL AST (17-59) U/L ALT (0-50) U/L Alkaline Phosphatase (38-126) U/L Troponin I 0.104 H* 0.123 H* (0.000-0.034) ng/mL NT-Pro-B Natriuret Pep (0-1800) pg/mL Serum Total Protein (6.3-8.2) g/dL Albumin (3.5-5.0) g/dL Urine Color YELLOW (YELLOW) Urine Appearance CLEAR (CLEAR) Urine pH 5.0 (5-6) Ur Specific [place] 1.013 (1.005-1.025) Urine Protein NEGATIVE (Negative) Urine Ketones NEGATIVE (NEGATIVE) Urine Blood NEGATIVE (0-5) Marcelino/ul Urine Nitrite NEGATIVE (NEGATIVE) Urine Bilirubin NEGATIVE (NEGATIVE) Urine Urobilinogen NEGATIVE (0-1) mg/dL Ur Leukocyte Esterase NEGATIVE (NEGATIVE) Urine WBC (Auto) NONE (0-5) /HPF Urine RBC (Auto) 0-2 (0-2) /HPF U Hyaline Cast (Auto) 0-2 (0-2) /LPF U Epithel Cells (Auto) RARE (FEW) /HPF Urine Bacteria (Auto) NONE (NEGATIVE) /HPF Urine Mucus (Auto) SLIGHT (NEGATIVE) /HPF Urine Culture Reflexed ORDERED SEPARATELY (NO) Urine Glucose NEGATIVE (NEGATIVE) mg/dL SARS-CoV-2 (PCR) (NEGATIVE) 09/28/20 09/28/20 09/28/20 Range/Units 14:45 15:18 18:15 WBC (4.0-10.5) K/mm3 RBC (4.1-5.6) M/mm3 Hgb (12.5-18.0) gm/dl Hct (42-50) % MCV (78-100) fl MCH (26-32) pg MCHC (32-36) g/dl RDW (11.5-14.0) % Plt Count (150-450) K/mm3 MPV (7.5-11.0) fl Segmented Neutrophils (36.-66.) % Band Neutrophils (0.0-2.0) % Lymphocytes (Manual) (24-44) % Monocytes (Manual) (0.0-12.0) % Platelet Estimate (NORMAL) RBC Morphology PT (8.83-12.87) SECONDS INR (0.8-3.0) APTT (24.1-36.1) SECONDS Sodium (137-145) mmol/L Potassium (3.5-5.1) mmol/L Chloride (98-107) mmol/L Carbon Dioxide (22-30) mmol/L Anion Gap (5-15) MEQ/L BUN (9-20) mg/dL Creatinine (0.66-1.25) mg/dL Estimated GFR ML/MIN Glucose (74-106) mg/dL Lactic Acid 1.8 (0.4-2.0) Calcium (8.4-10.2) mg/dL Total Bilirubin (0.2-1.3) mg/dL AST (17-59) U/L ALT (0-50) U/L Alkaline Phosphatase (38-126) U/L Troponin I 0.136 H* (0.000-0.034) ng/mL NT-Pro-B Natriuret Pep (0-1800) pg/mL Serum Total Protein (6.3-8.2) g/dL Albumin (3.5-5.0) g/dL Urine Color (YELLOW) Urine Appearance (CLEAR) Urine pH (5-6) Ur Specific [place] (1.005-1.025) Urine Protein (Negative) Urine Ketones (NEGATIVE) Urine Blood (0-5) Marcelino/ul Urine Nitrite (NEGATIVE) Urine Bilirubin (NEGATIVE) Urine Urobilinogen (0-1) mg/dL Ur Leukocyte Esterase (NEGATIVE) Urine WBC (Auto) (0-5) /HPF Urine RBC (Auto) (0-2) /HPF U Hyaline Cast (Auto) (0-2) /LPF U Epithel Cells (Auto) (FEW) /HPF Urine Bacteria (Auto) (NEGATIVE) /HPF Urine Mucus (Auto) (NEGATIVE) /HPF Urine Culture Reflexed (NO) Urine Glucose (NEGATIVE) mg/dL SARS-CoV-2 (PCR) NEGATIVE (NEGATIVE) 09/29/20 09/29/20 Range/Units 04:28 04:28 WBC (4.0-10.5) K/mm3 RBC (4.1-5.6) M/mm3 Hgb (12.5-18.0) gm/dl Hct (42-50) % MCV (78-100) fl MCH (26-32) pg MCHC (32-36) g/dl RDW (11.5-14.0) % Plt Count (150-450) K/mm3 MPV (7.5-11.0) fl Segmented Neutrophils (36.-66.) % Band Neutrophils (0.0-2.0) % Lymphocytes (Manual) (24-44) % Monocytes (Manual) (0.0-12.0) % Platelet Estimate (NORMAL) RBC Morphology PT (8.83-12.87) SECONDS INR (0.8-3.0) APTT (24.1-36.1) SECONDS Sodium 135 L (137-145) mmol/L Potassium 3.4 L (3.5-5.1) mmol/L Chloride 92 L (98-107) mmol/L Carbon Dioxide 38 H (22-30) mmol/L Anion Gap 8.9 (5-15) MEQ/L BUN 68 H (9-20) mg/dL Creatinine 2.69 H (0.66-1.25) mg/dL Estimated GFR 24.5 ML/MIN Glucose 122 H (74-106) mg/dL Lactic Acid (0.4-2.0) Calcium 8.1 L (8.4-10.2) mg/dL Total Bilirubin (0.2-1.3) mg/dL AST (17-59) U/L ALT (0-50) U/L Alkaline Phosphatase (38-126) U/L Troponin I 0.085 H* (0.000-0.034) ng/mL NT-Pro-B Natriuret Pep (0-1800) pg/mL Serum Total Protein (6.3-8.2) g/dL Albumin (3.5-5.0) g/dL Urine Color (YELLOW) Urine Appearance (CLEAR) Urine pH (5-6) Ur Specific [place] (1.005-1.025) Urine Protein (Negative) Urine Ketones (NEGATIVE) Urine Blood (0-5) Marcelino/ul Urine Nitrite (NEGATIVE) Urine Bilirubin (NEGATIVE) Urine Urobilinogen (0-1) mg/dL Ur Leukocyte Esterase (NEGATIVE) Urine WBC (Auto) (0-5) /HPF Urine RBC (Auto) (0-2) /HPF U Hyaline Cast (Auto) (0-2) /LPF U Epithel Cells (Auto) (FEW) /HPF Urine Bacteria (Auto) (NEGATIVE) /HPF Urine Mucus (Auto) (NEGATIVE) /HPF Urine Culture Reflexed (NO) Urine Glucose (NEGATIVE) mg/dL SARS-CoV-2 (PCR) (NEGATIVE) Microbiology 09/28/20 13:22 Urine Culture - Preliminary Catherized NO GROWTH TO DATE - Radiology Impressions Radiology Exams & Impressions: Radiology Procedures Category Date Time Status CHEST 1 VIEW (PORTABLE) Stat Exams 09/28/20 11:08 Completed - Other Procedures and Tests Respiratory Therapy 09/28/20 19:39 Respiratory Therapy Assessment DAILY 09/28/20 19:44 Oxygen Nasal Cannula 3 lpm Assessment/Plan (1) Pneumonia Current Visit: Yes Status: Acute Qualifiers: Laterality: left Lung location: lower lobe of lung Code(s): J18.9 - PNEUMONIA, UNSPECIFIED ORGANISM (2) Atrial fibrillation Current Visit: No Status: Chronic Code(s): I48.91 - UNSPECIFIED ATRIAL FIBRILLATION (3) Bone metastasis Current Visit: No Status: Chronic Code(s): C79.51 - SECONDARY MALIGNANT NEOPLASM OF BONE (4) CAD (coronary artery disease) Current Visit: No Status: Chronic Qualifiers: Code(s): I25.10 - ATHSCL HEART DISEASE OF [place] CORONARY ARTERY W/O ANG PCTRS (5) COPD (chronic obstructive pulmonary disease) Current Visit: No Status: Chronic Qualifiers: COPD type: chronic bronchitis Chronic bronchitis type: simple Qualified Code(s): J41.0 - Simple chronic bronchitis (6) Chronic renal disease, stage 4, severely decreased glomerular filtration rate (GFR) between 15-29 mL/min/1.73 square meter Current Visit: No Status: Chronic Code(s): N18.4 - CHRONIC KIDNEY DISEASE, STAGE 4 (SEVERE)
[2020-09-29] MEDS ORDERED: MORPHINE SULFATE 2 MG INJ IV PRN (12:16)
[2020-09-29] MEDS: Sodium Chloride 0.9% 10 ML FLUSH Syringe IV SCH ×2 (14:30→22:51)
[2020-09-29] MEDS: Duragesic 50MCG Patch TD SCH (14:37)
[2020-09-29] MEDS: Zithromax 500 MG/ 250 ML NaCl Premix 500 MG/250 ML IVPB IV SCH (16:43)
[2020-09-29] MEDS ORDERED: Neurontin 100 MG PO SCH (22:00)
[2020-09-29] MEDS ORDERED: NON-FORMULARY ITEM (Atorvastatin Calcium [Lipitor] 10 MG) PO SCH (22:00)
[2020-09-29] MEDS: Zocor 10MG PO SCH (22:50)
[2020-09-29] MEDS: Neurontin 400 MG PO SCH (22:50)
[2020-09-30] MEDS: Sodium Chloride 0.9% 10 ML FLUSH Syringe IV SCH ×3 (05:41→21:58)
[2020-09-30] MEDS: Zosyn 3.375 GM Vial 3.375 GM in Sodium Chloride 100ML MINI-BAG PLUS 100 ML IV SCH ×3 (05:41→21:19)
[2020-09-30] MEDS: PROVENTIL 2.5 MG/3 ML NEB IH SCH ×3 (05:45→17:45)
[2020-09-30 07:00] LABS: ALBUMIN 2.9 g/dL (3.5-5.0); ANION GAP 8.3 MEQ/L (5-15); Calcium 8.2 mg/dL (8.4-10.2); Creatinine 1 2.42 mg/dL (0.66-1.25); EST GLOMERULAR FILTRATION RATE 27.7 ML/MIN; Potassium 3.5 mmol/L (3.5-5.1); Total Protein 5.8 g/dL (6.3-8.2)
[2020-09-30 07:01] LABS: BILIRUBIN,TOTAL 0.7 mg/dL (0.2-1.3)
[2020-09-30 07:15] LABS: Hematocrit 21.6 % (42-50); Mean Cell Volume 106.4 fl (78-100); Mean Corpuscular Hemoglobin 32.5 pg (26-32); Mean Corpuscular Hgb Concent. 30.6 g/dl (32-36); Mean Platelet Volume 9.5 fl (7.5-11.0); Platelet Count 110 K/mm3 (150-450); Red Blood Count 2.03 M/mm3 (4.1-5.6); White Blood Count 4.5 K/mm3 (4.0-10.5)
[2020-09-30 07:24] LABS: Hemoglobin 6.6 gm/dl (12.5-18.0)
[2020-09-30] MEDS: Lopressor 50 MG PO SCH ×2 (09:15→21:24)
--- NOTE | 2020-09-30 09:20 | PCM.NOTE ---
Date and Time: 09/30/20912 Subjective Assessment: Pt. feeling and breathing better today, notes an increase today of intention tremor, this is normal for him to have variability of the tremor. - Review of Systems Constitutional: No Fever, No Chills Eyes: No Symptoms Ears, Nose, & Throat: No Symptoms Respiratory: Short Of Breath, Wheezing, No Cough Cardiac: No Chest Pain, No Edema, No Syncope Abdominal/Gastrointestinal: No Abdominal Pain, No Nausea, No Vomiting, No Diarrhea Genitourinary Symptoms: No Dysuria Musculoskeletal: No Back Pain, No Neck Pain Skin: No Rash Neurological: No Dizziness, No Focal Weakness, No Sensory Changes Psychological: No Symptoms Endocrine: No Symptoms Hematologic/Lymphatic: No Symptoms Immunological/Allergic: No Symptoms Objective Exam General Appearance: no apparent distress Neurologic Exam: alert, cooperative Skin Exam: normal color, warm, dry Wound Assessment: Skin/Wound Assessment Wound/Incision Assessment Start: 09/28/20 19:05 Text: Status: Active Freq: Q6H Protocol: Document 09/30/20 07:23 ODALIS (Rec: 09/30/20 07:28 [id number]) Wound/Incision Assessment Right Great Toe Wound Assessment Shift Assessment Wound Type Pressure Ulcer Wound Stage Deep Tissue Injury Drainage Amount None General Appearance Open to air Surrounding Tissue [place] Comment 2cm x 1.5cm purple Left Heel Wound Assessment Shift Assessment Wound Type Pressure Ulcer Wound Stage Deep Tissue Injury Drainage Amount None General Appearance Open to air Surrounding Tissue [place] Comment 3.25cm x 4.5cm dark purple Right Buttock Wound Assessment Shift Assessment Wound Type Pressure Ulcer Wound Stage Stage II Drainage Amount None General Appearance Open to air Wound Bed Greatest Portion Dusky Red Surrounding Tissue [place] Comment 1cm x 2cm x 0.1cm Left Buttock Wound Assessment Shift Assessment Wound Type Pressure Ulcer Wound Stage Stage II Drainage Amount None Wound Bed Greatest Portion Dusky Red Surrounding Tissue [place] Comment 3cm x 1cm x 0.25cm Posterior Left Hip Wound Assessment Shift Assessment Wound Type Pressure Ulcer Wound Stage Stage II Drainage Amount None General Appearance Open to air Surrounding Tissue [place] Comment 10cm x 6cm slightly raised wound with greater portion of wound bed being red with small portion in center purple. Barrier cream applied. Left Calf Wound Assessment Shift Assessment Wound Type Pressure Ulcer Wound Stage Deep Tissue Injury Drainage Amount None General Appearance Well Approximated,Open to air Surrounding Tissue [place] Comment posterior left calf. 7cm x 0. 25cm linear suspected deep tissue injury. Wound Photo Photo Taken No Comment: previously documented wounds Eye Exam: eyes nml inspection Ears, Nose, Throat Exam: normal ENT inspection Neck Exam: normal inspection, non-tender Respiratory Exam: diminished breath sounds, rhonchi, wheezing Cardiovascular Exam: regular rate/rhythm, normal heart sounds Gastrointestinal/Abdomen Exam: soft, normal bowel sounds Extremity Exam: normal inspection OBJECTIVE DATA Vital Signs: Vital Signs - 24 hr Temp Pulse Resp BP BP Pulse Ox 09/30/20 08:59 99.5 F 81 24 91/44 98 09/30/20 07:23 84 09/30/20 05:47 84 17 100 09/30/20 05:27 99.7 F 72 22 96/49 100 09/30/20 04:00 99.7 F 73 15 96/49 86/40 97 09/30/20 00:01 67 09/30/20 00:00 99.1 F 66 18 86/40 09/29/20 22:58 99.7 F 85 14 110/45 09/29/20 20:00 100.2 F 86 20 117/51 97 09/29/20 18:32 96 H 22 95 09/29/20 18:08 100.2 F 09/29/20 16:00 99.3 F 72 22 105/49 93 L 09/29/20 13:13 70 16 93 L 09/29/20 12:00 73 09/29/20 10:48 98.4 F 77 18 122/60 94 L Oxygen-Last 24 hours Oxygen Flowrate (L/min)-RT 2 Oxygen Flowrate (L/min)-RT 3 Oxygen Flowrate (L/min)-RT 3 Oxygen Flowrate (L/min)-RT 3 Oxygen Flowrate (L/min)-RT 3 Pain Assessment - Last Documented Pain Intensity 0 Pain Scale Used 0-10 Pain Scale Intake and Output: Intake & Output 09/27/20 09/28/20 09/29/20 09/30/20 11:59 11:59 11:59 11:59 Intake Total 986 486 Output Total 550 1450 Balance 436 -964 Weight 66.542 kg 69.1 kg 67.5 kg Lab Results: Lab Results-Last 24 Hours 09/30/20 09/30/20 Range/Units 05:00 05:00 WBC 4.5 (4.0-10.5) K/mm3 RBC 2.03 L (4.1-5.6) M/mm3 Hgb 6.6 L* D (12.5-18.0) gm/dl Hct 21.6 L (42-50) % MCV 106.4 H (78-100) fl MCH 32.5 H (26-32) pg MCHC 30.6 L (32-36) g/dl RDW 23.0 H (11.5-14.0) % Plt Count 110 L (150-450) K/mm3 MPV 9.5 (7.5-11.0) fl Sodium 139 (137-145) mmol/L Potassium 3.5 (3.5-5.1) mmol/L Chloride 95 L (98-107) mmol/L Carbon Dioxide 39 H (22-30) mmol/L Anion Gap 8.3 (5-15) MEQ/L BUN 57 H (9-20) mg/dL Creatinine 2.42 H (0.66-1.25) mg/dL Estimated GFR 27.7 ML/MIN Glucose 112 H (74-106) mg/dL Calcium 8.2 L (8.4-10.2) mg/dL Total Bilirubin 0.70 (0.2-1.3) mg/dL AST 29 (17-59) U/L ALT 11 (0-50) U/L Alkaline Phosphatase 80 (38-126) U/L Serum Total Protein 5.8 L (6.3-8.2) g/dL Albumin 2.9 L (3.5-5.0) g/dL Radiology Exams: Radiology Procedures Category Date Time Status CHEST 1 VIEW (PORTABLE) Stat Exams 09/28/20 11:08 Completed Multi-Disciplinary Progress Notes: Multi-Disciplinary Progress Notes 09/29/20 15:20 Case Management Note by Kate Royal ATTEMPTED TO CONTACT [facility] TO NOTIFY THEM PATIENT IS HERE- NO ANSWER THEY WILL NEED CONTACTED AT TIME OF DC AT [phone]. THEY WILL NEED FAXED THE DC INSTRUCTIONS, DC MED LIST AND DC SUMMARY (IF AVAILABLE) TO [phone] Initialized on 09/29/20 15:20 - END OF NOTE Assessment/Plan (1) Pneumonia Current Visit: Yes Status: Acute Qualifiers: Laterality: left Lung location: lower lobe of lung Assessment & Plan: Continue iv zosyn and azithromycin Code(s): J18.9 - PNEUMONIA, UNSPECIFIED ORGANISM (2) Anemia Current Visit: No Status: Chronic Qualifiers: Anemia type: iron deficiency Iron deficiency anemia type: chronic blood loss Qualified Code(s): D50.0 - Iron deficiency anemia secondary to blood loss (chronic) Assessment & Plan: will transfuse 2 units when available Code(s): D64.9 - ANEMIA, UNSPECIFIED
[2020-09-30] MEDS: MAG-OX 400 PO SCH ×2 (09:24→21:23)
[2020-09-30] MEDS: Protonix 40MG Tablet PO SCH (09:24)
[2020-09-30] MEDS: ELIQUIS 2.5 MG TABLET PO SCH ×2 (09:24→21:24)
[2020-09-30] MEDS: BUMEX 1 MG PO SCH ×2 (09:24→16:20)
[2020-09-30] MEDS: Klor Con 10 MEQ PO SCH ×2 (09:24→21:23)
[2020-09-30] MEDS: Neurontin 100 MG PO SCH (09:24)
[2020-09-30] MEDS: FOLATE 1 MG PO SCH (09:24)
[2020-09-30] MEDS: Pepcid 20 MG PO SCH ×2 (09:24→21:24)
[2020-09-30] MEDS: MEDICATION INTERVENTION MC SCH (09:25)
[2020-09-30] MEDS ORDERED: Sodium Chloride 0.9% 500 ML 500 ML IV PRN (09:50)
[2020-09-30] MEDS: TYLENOL 325 MG PO PRN ×2 (11:50→15:55)
[2020-09-30 13:20] LABS: Slide Review YES
[2020-09-30] MEDS: Zithromax 500 MG/ 250 ML NaCl Premix 500 MG/250 ML IVPB IV SCH (17:02)
--- NOTE | 2020-09-30 18:01 | XRAY ---
Indication: Pneumonia. Comparison: September 28, 2020. Portable chest demonstrates clearing of previous left base infiltrate/atelectasis with mild residual. Remaining chest unchanged again demonstrating pulmonary emphysema, chronic lung markings, calcified granulomas, left hemithorax calcified pleural plaquing, and borderline cardiomegaly. No new cardiopulmonary abnormalities. Comment: Preliminary interpretation was made by C. No critical discrepancy.
[2020-09-30 18:08] LABS: ABO TYPING A; RH TYPING POSITIVE
[2020-09-30 18:11] LABS: Antibody Screen POSITIVE (NEGATIVE)
[2020-09-30] MEDS: Neurontin 400 MG PO SCH (21:23)
[2020-09-30] MEDS: Zocor 10MG PO SCH (21:23)
[2020-10-01 03:40] LABS: CROSS MATCH (PRBC) COMPATIBLE (COMPATIBLE)
[2020-10-01] MEDS: Zosyn 3.375 GM Vial 3.375 GM in Sodium Chloride 100ML MINI-BAG PLUS 100 ML IV SCH ×3 (05:30→21:02)
[2020-10-01] MEDS: PROVENTIL 2.5 MG/3 ML NEB IH SCH ×3 (07:21→18:56)
[2020-10-01] MEDS: Sodium Chloride 0.9% 10 ML FLUSH Syringe IV SCH ×3 (07:28→21:03)
[2020-10-01 07:39] LABS: Hematocrit 28.8 % (42-50); Hemoglobin 9.1 gm/dl (12.5-18.0); Mean Cell Volume 103.2 fl (78-100); Mean Corpuscular Hemoglobin 32.6 pg (26-32); Mean Corpuscular Hgb Concent. 31.6 g/dl (32-36); Mean Platelet Volume 9.4 fl (7.5-11.0); Platelet Count 92 K/mm3 (150-450); Red Blood Count 2.79 M/mm3 (4.1-5.6); Red Cell Distribution Width 20.9 % (11.5-14.0); White Blood Count 4.6 K/mm3 (4.0-10.5)
[2020-10-01 07:43] LABS: ANION GAP 7.3 MEQ/L (5-15); Calcium 8.2 mg/dL (8.4-10.2); Creatinine 1 2.64 mg/dL (0.66-1.25); EST GLOMERULAR FILTRATION RATE 25.1 ML/MIN; Potassium 3.6 mmol/L (3.5-5.1)
[2020-10-01] MEDS: BUMEX 1 MG PO SCH ×2 (10:48→17:00)
[2020-10-01] MEDS: Pepcid 20 MG PO SCH ×2 (10:48→21:01)
[2020-10-01] MEDS: FOLATE 1 MG PO SCH (10:48)
[2020-10-01] MEDS: ELIQUIS 2.5 MG TABLET PO SCH ×2 (10:48→21:01)
[2020-10-01] MEDS: Neurontin 100 MG PO SCH (10:48)
[2020-10-01] MEDS: Lopressor 50 MG PO SCH ×2 (10:48→21:01)
[2020-10-01] MEDS: MAG-OX 400 PO SCH ×2 (10:48→21:01)
[2020-10-01] MEDS: Klor Con 10 MEQ PO SCH ×2 (10:48→21:01)
[2020-10-01] MEDS: MEDICATION INTERVENTION MC SCH (10:49)
[2020-10-01] MEDS: Protonix 40MG Tablet PO SCH (10:49)
--- NOTE | 2020-10-01 10:56 | PCM.NOTE ---
Date and Time: 10/01/20 1050 Subjective Assessment: Blood pressure a little lower but had a couple of runs of v-tach, will give lopressor and hold bumex this am. Pt.. drowsy and currently getting second unit of blood. Pt.. has no complaints this am, saturations running 100% and no concerns voiced from the patient. - Review of Systems Constitutional: No Symptoms Eyes: No Symptoms Ears, Nose, & Throat: No Symptoms Respiratory: No Symptoms Cardiac: No Symptoms Abdominal/Gastrointestinal: No Symptoms Genitourinary Symptoms: No Symptoms Objective Exam General Appearance: no apparent distress Neurologic Exam: alert, cooperative Skin Exam: normal color, warm, dry Wound Assessment: Skin/Wound Assessment Wound/Incision Assessment Start: 09/28/20 19:05 Text: Status: Active Freq: Q6H Protocol: Document 10/01/20 07:28 ODALIS (Rec: 10/01/20 07:29 ODALIS [id number]) Wound/Incision Assessment Right Great Toe Wound Assessment Shift Assessment Wound Type Pressure Ulcer Wound Stage Deep Tissue Injury Drainage Amount None General Appearance Open to air Surrounding Tissue [place] Comment 2cm x 1.5cm purple Left Heel Wound Assessment Shift Assessment Wound Type Pressure Ulcer Wound Stage Deep Tissue Injury Drainage Amount None General Appearance Open to air Surrounding Tissue [place] Comment 3.25cm x 4.5cm dark purple Right Buttock Wound Assessment Shift Assessment Wound Type Pressure Ulcer Wound Stage Stage II Drainage Amount None General Appearance Open to air Wound Bed Greatest Portion [place] Red Surrounding Tissue [place] Comment 1cm x 2cm x 0.1cm Left Buttock Wound Assessment Shift Assessment Wound Type Pressure Ulcer Wound Stage Stage II Drainage Amount None Wound Bed Greatest Portion [place] Red Surrounding Tissue [place] Comment 3cm x 1cm x 0.25cm Posterior Left Hip Wound Assessment Shift Assessment Wound Type Pressure Ulcer Wound Stage Stage II Drainage Amount None General Appearance Open to air Surrounding Tissue [place] Comment 10cm x 6cm slightly raised wound with greater portion of wound bed being red with small portion in center purple. Barrier cream applied. Left Calf Wound Assessment Shift Assessment Wound Type Pressure Ulcer Wound Stage Deep Tissue Injury Drainage Amount None General Appearance Well Approximated,Open to air Surrounding Tissue [place] Comment posterior left calf. 7cm x 0. 25cm linear suspected deep tissue injury. Wound Photo Photo Taken No Comment: previously documented wounds Eye Exam: EOMI, post op pupil defect (L) Ears, Nose, Throat Exam: normal ENT inspection Neck Exam: normal inspection Respiratory Exam: diminished breath sounds (improved from yesterday) Cardiovascular Exam: regular rate/rhythm OBJECTIVE DATA Vital Signs: Vital Signs - 24 hr Temp Pulse Resp BP BP Pulse Ox 10/01/20 07:24 99.1 F 89 21 125/50 99 10/01/20 07:23 82 17 98 10/01/20 04:00 99.2 F 92 H 22 144/60 97 10/01/20 00:00 98.4 F 74 18 114/65 97 09/30/20 20:43 96 09/30/20 20:00 98.6 F 80 16 112/47 09/30/20 17:47 75 21 95 09/30/20 15:48 100.2 F 86 21 95/35 86/40 100 09/30/20 13:11 88 22 98 09/30/20 11:27 100.2 F 96 H 15 105/57 100 09/30/20 11:25 78 Oxygen-Last 24 hours Oxygen Flowrate (L/min)-RT 3 Oxygen Flowrate (L/min)-RT 4 Pain Assessment - Last Documented Pain Intensity 0 Pain Scale Used 0-10 Pain Scale Intake and Output: Intake & Output 09/28/20 09/29/20 09/30/20 10/01/20 11:59 11:59 11:59 11:59 Intake Total 497 134 6009 Output Total 550 1450 1930 Balance 436 964 -615 Weight 66.542 kg 69.1 kg 67.5 kg 74.5 kg Lab Results: Lab Results-Last 24 Hours 09/30/20 09/30/20 09/30/20 Range/Units 05:00 10:25 10:25 WBC (4.0-10.5) K/mm3 RBC (4.1-5.6) M/mm3 Hgb (12.5-18.0) gm/dl Hct (42-50) % MCV (78-100) fl MCH (26-32) pg MCHC (32-36) g/dl RDW (11.5-14.0) % Plt Count (150-450) K/mm3 MPV (7.5-11.0) fl Sodium (137-145) mmol/L Potassium (3.5-5.1) mmol/L Chloride (98-107) mmol/L Carbon Dioxide (22-30) mmol/L Anion Gap (5-15) MEQ/L BUN (9-20) mg/dL Creatinine (0.66-1.25) mg/dL Estimated GFR ML/MIN Glucose (74-106) mg/dL Calcium (8.4-10.2) mg/dL Slides for Path Review YES ABO Group A Rh Factor POSITIVE Antibody Screen POSITIVE (NEGATIVE) Crossmatch COMPATIBLE COMPATIBLE (COMPATIBLE) 10/01/20 10/01/20 Range/Units 07:24 07:24 WBC 4.6 (4.0-10.5) K/mm3 RBC 2.79 L (4.1-5.6) M/mm3 Hgb 9.1 L D (12.5-18.0) gm/dl Hct 28.8 L (42-50) % MCV 103.2 H (78-100) fl MCH 32.6 H (26-32) pg MCHC 31.6 L (32-36) g/dl RDW 20.9 H (11.5-14.0) % Plt Count 92 L (150-450) K/mm3 MPV 9.4 (7.5-11.0) fl Sodium 138 (137-145) mmol/L Potassium 3.6 (3.5-5.1) mmol/L Chloride 95 L (98-107) mmol/L Carbon Dioxide 39 H (22-30) mmol/L Anion Gap 7.3 (5-15) MEQ/L BUN 50 H (9-20) mg/dL Creatinine 2.64 H (0.66-1.25) mg/dL Estimated GFR 25.1 ML/MIN Glucose 127 H (74-106) mg/dL Calcium 8.2 L (8.4-10.2) mg/dL Slides for Path Review ABO Group Rh Factor Antibody Screen (NEGATIVE) Crossmatch (COMPATIBLE) Radiology Exams: Radiology Procedures Category Date Time Status CHEST 1 VIEW (PORTABLE) Routine Exams 09/30/20 14:00 Completed Assessment/Plan (1) Pneumonia Current Visit: Yes Status: Acute Qualifiers: Laterality: left Lung location: lower lobe of lung Assessment & Plan: clinically improving Code(s): J18.9 - PNEUMONIA, UNSPECIFIED ORGANISM (2) Anemia Current Visit: No Status: Chronic Qualifiers: Anemia type: iron deficiency Iron deficiency anemia type: chronic blood loss Qualified Code(s): D50.0 - Iron deficiency anemia secondary to blood loss (chronic) Assessment & Plan: receiving second unit of blood, check h and h and bmp 1 hour post infusion Code(s): D64.9 - ANEMIA, UNSPECIFIED
[2020-10-01] MEDS: Zaroxolyn 2.5 MG PO SCH (10:57)
[2020-10-01 13:08] LABS: Hematocrit 35.4 % (42-50); Hemoglobin 11.2 gm/dl (12.5-18.0)
[2020-10-01 13:26] LABS: ANION GAP 7.6 MEQ/L (5-15); Calcium 8.7 mg/dL (8.4-10.2); Creatinine 1 2.59 mg/dL (0.66-1.25); EST GLOMERULAR FILTRATION RATE 25.6 ML/MIN; Potassium 4.2 mmol/L (3.5-5.1)
[2020-10-01] MEDS: TYLENOL 325 MG PO PRN ×2 (13:41→21:01)
[2020-10-01] MEDS: Zithromax 500 MG/ 250 ML NaCl Premix 500 MG/250 ML IVPB IV SCH (17:00)
[2020-10-01] MEDS: Neurontin 400 MG PO SCH (21:01)
[2020-10-01] MEDS: Zocor 10MG PO SCH (21:08)
[2020-10-02] MEDS: PROVENTIL 2.5 MG/3 ML NEB IH SCH ×3 (05:28→17:00)
[2020-10-02 06:01] LABS: Hematocrit 32.3 % (42-50); Hemoglobin 10.2 gm/dl (12.5-18.0); Mean Cell Volume 102.2 fl (78-100); Mean Corpuscular Hemoglobin 32.3 pg (26-32); Mean Corpuscular Hgb Concent. 31.6 g/dl (32-36); Mean Platelet Volume 9.6 fl (7.5-11.0); Platelet Count 84 K/mm3 (150-450); Red Blood Count 3.16 M/mm3 (4.1-5.6); Red Cell Distribution Width 19.9 % (11.5-14.0); White Blood Count 4.1 K/mm3 (4.0-10.5)
[2020-10-02 06:12] LABS: Calcium 8.5 mg/dL (8.4-10.2); Creatinine 1 2.57 mg/dL (0.66-1.25); EST GLOMERULAR FILTRATION RATE 25.8 ML/MIN; Potassium 3.4 mmol/L (3.5-5.1)
[2020-10-02] MEDS: Sodium Chloride 0.9% 10 ML FLUSH Syringe IV SCH ×3 (06:26→21:55)
[2020-10-02] MEDS: Zosyn 3.375 GM Vial 3.375 GM in Sodium Chloride 100ML MINI-BAG PLUS 100 ML IV SCH ×3 (06:26→21:55)
[2020-10-02 07:37] LABS: Slide Review YES
[2020-10-02] MEDS: Pepcid 20 MG PO SCH ×2 (08:41→21:55)
[2020-10-02] MEDS: Protonix 40MG Tablet PO SCH (08:41)
[2020-10-02] MEDS: Klor Con 10 MEQ PO SCH ×2 (08:41→21:55)
[2020-10-02] MEDS: Neurontin 100 MG PO SCH (08:41)
[2020-10-02] MEDS: ELIQUIS 2.5 MG TABLET PO SCH ×2 (08:42→21:55)
[2020-10-02] MEDS: FOLATE 1 MG PO SCH (08:42)
[2020-10-02] MEDS: Lopressor 50 MG PO SCH ×2 (08:42→21:55)
[2020-10-02] MEDS: BUMEX 1 MG PO SCH ×2 (08:42→16:03)
[2020-10-02] MEDS: MEDICATION INTERVENTION MC SCH (08:43)
[2020-10-02] MEDS: MAG-OX 400 PO SCH ×2 (08:43→21:55)
[2020-10-02] MEDS: TYLENOL 325 MG PO PRN ×2 (12:26→22:06)
[2020-10-02] MEDS: Duragesic 50MCG Patch TD SCH (14:32)
[2020-10-02] MEDS: Zithromax 500 MG/ 250 ML NaCl Premix 500 MG/250 ML IVPB IV SCH (18:10)
--- NOTE | 2020-10-02 18:32 | PCM.NOTE ---
Date and Time: 10/02/201829 Subjective Assessment: doing ok - Review of Systems Constitutional: No Fever, No Chills Eyes: No Symptoms Ears, Nose, & Throat: No Symptoms Respiratory: Orthopnea, Short Of Breath, Wheezing, No Cough Cardiac: No Chest Pain, No Edema, No Syncope Abdominal/Gastrointestinal: No Abdominal Pain, No Nausea, No Vomiting, No Diarrhea Genitourinary Symptoms: No Dysuria Musculoskeletal: No Back Pain, No Neck Pain Skin: No Rash Neurological: No Dizziness, No Focal Weakness, No Sensory Changes Psychological: No Symptoms Endocrine: No Symptoms Hematologic/Lymphatic: No Symptoms Immunological/Allergic: No Symptoms Objective Exam General Appearance: no apparent distress, alert Neurologic Exam: alert, oriented x 3, cooperative, normal mood/affect, nml cerebellar function, sensation nml, No motor deficits Skin Exam: normal color, warm, dry Wound Assessment: Skin/Wound Assessment Wound/Incision Assessment Start: 09/28/20 19:05 Text: Status: Active Freq: Q6H Protocol: Document 10/02/20 14:00 ODALIS (Rec: 10/02/20 14:20 [id number]) Wound/Incision Assessment Right Great Toe Wound Assessment Shift Assessment Wound Type Pressure Ulcer Wound Stage Deep Tissue Injury Drainage Amount None General Appearance Open to air Surrounding Tissue [place] Left Heel Wound Assessment Shift Assessment Wound Type Pressure Ulcer Wound Stage Deep Tissue Injury Drainage Amount None General Appearance Open to air Surrounding Tissue [place] Right [place] Wound Assessment Shift Assessment Wound Type Pressure Ulcer Wound Stage Stage II Drainage Amount None General Appearance Open to air Wound Bed Greatest Portion [place] Surrounding Tissue [place] Left [place] Wound Assessment Shift Assessment Wound Type Pressure Ulcer Wound Stage Stage II Drainage Amount None Wound Bed Greatest Portion [place] Surrounding Tissue [place] Posterior Left Hip Wound Assessment Shift Assessment Wound Type Pressure Ulcer Wound Stage Stage II Drainage Amount None General Appearance Open to air Surrounding Tissue [place] Left Calf Wound Assessment Shift Assessment Wound Type Pressure Ulcer Wound Stage Deep Tissue Injury Drainage Amount None General Appearance Well Approximated,Open to air Surrounding Tissue [place] Wound Photo Photo Taken No Eye Exam: PERRL, EOMI, eyes nml inspection Ears, Nose, Throat Exam: normal ENT inspection, pharynx normal, moist mucous membranes Neck Exam: normal inspection, non-tender, supple, full range of motion Respiratory Exam: normal breath sounds, lungs clear, No respiratory distress Cardiovascular Exam: regular rate/rhythm, normal heart sounds Gastrointestinal/Abdomen Exam: soft, No tenderness, No mass Extremity Exam: normal inspection, normal range of motion Back Exam: normal inspection, normal range of motion, No CVA tenderness, No vertebral tenderness Male Genitalia Exam: deferred Rectal Exam: deferred OBJECTIVE DATA Vital Signs: Vital Signs - 24 hr Temp Pulse Resp BP Pulse Ox 10/02/20 16:58 82 20 94 L 10/02/20 16:00 99 F 98 H 18 116/49 94 L 10/02/20 12:32 78 20 95 10/02/20 12:10 100.9 F 91 H 24 139/57 94 L 10/02/20 12:00 100.8 F 77 19 139/57 96 10/02/20 07:30 99 F 73 19 123/77 96 10/02/20 05:28 67 15 94 L 10/02/20 04:00 98.6 F 62 20 149/61 98 10/02/20 00:00 99.5 F 66 16 108/72 98 10/01/20 20:00 100.2 F 88 24 131/69 96 10/01/20 18:56 66 20 98 Oxygen-Last 24 hours Oxygen Flowrate (L/min)-RT 3 Oxygen Flowrate (L/min)-RT 3 Oxygen Flowrate (L/min)-RT 3 Oxygen Flowrate (L/min)-RT 3 Oxygen Flowrate (L/min)-RT 3 Pain Assessment - Last Documented Pain Intensity 3 Pain Scale Used 0-10 Pain Scale Intake and Output: Intake & Output 09/30/20 10/01/20 10/02/20 10/03/20 11:59 11:59 11:59 11:59 Intake Total 936 1315 1694 710 Output Total 1450 1930 2200 1200 Balance -964 -615 -506 -490 Weight 67.5 kg 74.5 kg 70.1 kg Lab Results: Lab Results-Last 24 Hours 10/02/20 10/02/20 Range/Units 04:45 04:45 WBC 4.1 (4.0-10.5) K/mm3 RBC 3.16 L (4.1-5.6) M/mm3 Hgb 10.2 L (12.5-18.0) gm/dl Hct 32.3 L (42-50) % MCV 102.2 H (78-100) fl MCH 32.3 H (26-32) pg MCHC 31.6 L (32-36) g/dl RDW 19.9 H (11.5-14.0) % Plt Count 84 L (150-450) K/mm3 MPV 9.6 (7.5-11.0) fl Sodium 137 (137-145) mmol/L Potassium 3.4 L (3.5-5.1) mmol/L Chloride 96 L (98-107) mmol/L Carbon Dioxide 36 H (22-30) mmol/L Anion Gap 8.0 (5-15) MEQ/L BUN 43 H (9-20) mg/dL Creatinine 2.57 H (0.66-1.25) mg/dL Estimated GFR 25.8 ML/MIN Glucose 99 (74-106) mg/dL Calcium 8.5 (8.4-10.2) mg/dL Slides for Path Review YES Radiology Exams: Radiology Procedures Category Date Time Status CHEST 1 VIEW (PORTABLE) Routine Exams 10/02/20 07:00 Taken Multi-Disciplinary Progress Notes: Multi-Disciplinary Progress Notes 10/02/20 14:20 Physical Therapy Note by Jolie Beltran PT. SEEN BY P.TPaulette BID THIS DATE. SOMEWHAT CONFUSED. HAS BEEN RUNNING A TEMP MOST OF THE DAY. 3 L O2,. LINARES CATH IN PLACE. PERFORMED SUPINE TO SIT W/ MOD ASSIST. TRANSFERRED BED TO CHAIR W/ MOD ASSIST X 2 W/ ROLLER WALKER. PT. FATIGUES QUICKLY AND HAS DIFFICULTY TOLERATING WB D/T SEVERE WEAKNESS AND DECONDITIONING. HAD DIFFICULTY OBTAINING O2 SAT D/T POOR PERFUSION. PT. HAD SLID DOWN IN RECLINER AND WAS NOT ABLE TO PUSH HIMSELF BACK UP INTO CHAIR. REQUIRED MOD-MAX ASSIST X 2 TO SCOOT. FEEL REHAB WILL BE SLOW AND PROGNOSIS DIFFICULT TO DETERMINE D/T ACUTE ILLNESS STILL PRESENT. WILL PROGRESS W/ PT TOLERATED AND CONT. TO MAXIMIZE FUNCTIONAL POTENTIAL. JOLIE BELTRAN PT Initialized on 10/02/20 14:20 - END OF NOTE 10/02/20 11:57 Case Management Note by Kate Royal PATIENT CONFUSED THIS AM. WHEN I ASKED IF HE HAD BEEN UP THIS WEEKEND HE STATED "I GOT IN TROUBLE BECAUSE I WENT OUTSIDE AND 3 DOORS DOWN." PATIENT IS UNABLE TO AMBULATE PER SELF. S/W POA- SHE WOULD LIKE PATIENT TO SWING FOR REHAB PRIOR TO RETURNING HOME. DR. GROVER IN AGREEMENT. WILL SWING WHEN MEDICALLY READY Initialized on 10/02/20 11:57 - END OF NOTE Assessment/Plan (1) Pneumonia Current Visit: Yes Status: Acute Qualifiers: Laterality: left Lung location: lower lobe of lung Assessment & Plan: Chief Complaint Diagnosis Pneumonia Allergies Allergy/AdvReac Type Severity Reaction Status Date / Time No Known Drug Allergies Allergy Verified 08/31/20 20:38 Vital Signs (Last 24 hours) Temp Pulse Resp BP Pulse Ox 10/02/20 16:58 82 20 94 L 10/02/20 16:00 99 F 98 H 18 116/49 94 L 10/02/20 12:32 78 20 95 10/02/20 12:10 100.9 F 91 H 24 139/57 94 L 10/02/20 12:00 100.8 F 77 19 139/57 96 10/02/20 07:30 99 F 73 19 123/77 96 10/02/20 05:28 67 15 94 L 10/02/20 04:00 98.6 F 62 20 149/61 98 10/02/20 00:00 99.5 F 66 16 108/72 98 10/01/20 20:00 100.2 F 88 24 131/69 96 10/01/20 18:56 66 20 98 Home Medications Medication Instructions Recorded Confirmed Last Taken Type Fentanyl 50Mcg Patch [Duragesic 50 mcg TOP Q72H 09/29/20 09/29/20 09/26/20 History 50MCG Patch] Current Medications Generic Name Dose Route Start Last Admin Trade Name Freq PRN Reason Stop Dose Admin Acetaminophen 650 mg 09/30/20 11:24 10/02/20 12:26 Tylenol 325 Mg PO 10/30/20 11:23 650 mg Q4H PRN PRN Administration PAIN AND/OR FEVER Albuterol Sulfate 2.5 mg 09/28/20 19:00 10/02/20 17:00 Proventil 2.5 Mg/3 Ml Neb IH 10/28/20 18:59 2.5 mg TIDRT SIMBA Administration Apixaban 2.5 mg 09/29/20 10:00 10/02/20 08:42 Eliquis 2.5 Mg Tablet PO 10/29/20 09:59 2.5 mg BID SIMBA Administration Bumetanide 2 mg 09/29/20 10:00 10/02/20 16:03 Bumex 1 Mg PO 10/29/20 09:59 2 mg BID DIURETIC SIMBA Administration Famotidine 20 mg 09/29/20 10:00 10/02/20 08:41 Pepcid 20 Mg PO 10/29/20 09:59 20 mg BID SIMBA Administration Fentanyl 50 mcg 09/29/20 14:00 10/02/20 14:32 Duragesic 50mcg Patch TD 10/04/20 13:59 50 mcg Q72H SIMBA Administration Folic Acid 1 mg 09/29/20 10:00 10/02/20 08:42 Folate 1 Mg PO 10/29/20 09:59 1 mg DAILY SIMBA Administration Gabapentin 100 mg 09/29/20 10:00 10/02/20 08:41 Neurontin 100 Mg PO 10/29/20 09:59 100 mg DAILY SIMBA Administration Gabapentin 400 mg 09/29/20 22:00 10/01/20 21:01 Neurontin 400 Mg PO 10/29/20 21:59 400 mg HS SIMBA Administration Piperacillin Sod/Tazobactam 100 mls @ 200 mls/hr 09/28/20 22:00 10/02/20 14:36 Sod 3.375 gm/ Sodium Chloride IV 10/28/20 21:59 200 mls/hr Q8HT SIMBA Administration Azithromycin 500 mg in 250 mls @ 125 mls/hr 09/29/20 18:00 10/02/20 18:10 Zithromax 500 Mg/ 250 Ml Nacl Premix IV 10/29/20 17:59 125 mls/hr 1800 SIMBA Administration Sodium Chloride 500 mls @ 50 mls/hr 09/30/20 09:50 Sodium Chloride 0.9% 500 Ml IV 10/30/20 09:49 .Q10H PRN Magnesium Oxide 400 mg 09/29/20 10:00 10/02/20 08:43 Mag-Ox 400 PO 10/29/20 09:59 400 mg BID SIMBA Administration Metolazone 2.5 mg 09/29/20 10:00 10/01/20 10:57 Zaroxolyn 2.5 Mg PO 10/29/20 09:59 Not Given Q48H SIMBA Metoprolol Tartrate 50 mg 09/29/20 10:00 10/02/20 08:42 Lopressor 50 Mg PO 10/29/20 09:59 50 mg Q12HT SIMBA Administration Miscellaneous Information 0 each 09/29/20 10:00 10/02/20 08:43 Medication Intervention 10/29/20 09:59 Not Given DAILY SIMBA Morphine Sulfate 2 mg 09/29/20 12:16 Morphine Sulfate 2 Mg Inj IV 10/04/20 12:15 Q4H PRN PRN PAIN Pantoprazole Sodium 40 mg 09/29/20 10:00 10/02/20 08:41 Protonix 40mg Tablet PO 10/29/20 09:59 40 mg DAILY SIMBA Administration Potassium Chloride 20 meq 09/29/20 22:00 10/01/20 21:01 Klor Con 10 Meq PO 10/29/20 21:59 20 meq HS SIMBA Administration Potassium Chloride 30 meq 09/29/20 10:00 10/02/20 08:41 Klor Con 10 Meq PO 10/29/20 09:59 30 meq DAILY SIMBA Administration Simvastatin 10 mg 09/29/20 22:00 10/01/20 21:08 Zocor 10mg PO 10/29/20 21:59 10 mg HS SIMBA Administration Sodium Chloride 10 ml 09/29/20 14:00 10/02/20 14:36 Sodium Chloride 0.9% 10 Ml Flush Syringe IV 10/29/20 13:59 10 ml Q8HT SIMBA Administration Sodium Chloride 10 ml 09/29/20 07:15 Sodium Chloride 0.9% 10 Ml Flush Syringe IV 10/29/20 07:14 PRN PRN Discontinued Medications Generic Name Dose Route Start Last Admin Trade Name Freq PRN Reason Stop Dose Admin Acetaminophen Confirm 09/28/20 11:21 Feverall 650 Mg Administered 09/28/20 11:22 Dose 650 mg .ROUTE .STK-MED ONE Acetaminophen 650 mg 09/28/20 11:41 09/28/20 11:44 [place] 650 Mg OR 09/28/20 11:42 650 mg STAT ONE Administration Sodium Chloride Confirm 09/28/20 11:17 Sodium Chloride 0.9% 1000 Ml Administered 09/28/20 11:18 Dose 1,000 mls @ ud .ROUTE .STK-MED ONE Sodium Chloride 1,000 mls @ 999 mls/hr 09/28/20 11:21 09/28/20 13:10 Sodium Chloride 0.9% 1000 Ml IV 09/28/20 12:21 Infused .Q1H1M STA Infusion Piperacillin Sod/Tazobactam 100 mls @ 200 mls/hr 09/28/20 11:22 09/28/20 11:44 Sod 3.375 gm/ Sodium Chloride IV 09/28/20 11:51 200 mls/hr STAT ONE Administration Sodium Chloride Confirm 09/28/20 11:23 Sodium Chloride 100ml Mini-Bag Plus Administered 09/28/20 11:24 Dose 100 mls @ ud IV .STK-MED ONE Azithromycin 500 mg in 250 mls @ 250 mls/hr 09/29/20 10:00 Zithromax 500 Mg/ 250 Ml Nacl Premix IV 10/29/20 09:59 Q24H10 SIMBA Piperacillin Sod/Tazobactam 100 mls @ 200 mls/hr 09/29/20 00:00 Sod 3.375 gm/ Sodium Chloride IV 10/29/20 00:00 Q6HT SIMBA Piperacillin Sod/Tazobactam Sod Confirm 09/28/20 11:23 Zosyn 3.375 Gm Vial Administered 09/28/20 11:24 Dose 3.375 gm IV .STK-MED ONE Intake & Output (Last 24 hours) 09/30/20 10/01/20 10/02/20 10/03/20 11:59 11:59 11:59 11:59 Intake Total 192 8945 1694 710 Output Total 1450 1930 2200 1200 Balance -964 -615 -506 -490 Weight 67.5 kg 74.5 kg 70.1 kg Microbiology Results (Last 24 hours) 09/28/20 11:35 Blood Aerobic Culture - Pending 09/28/20 11:35 Blood Aerobic Culture - Pending Laboratory Results (Last 24 hours) 10/02/20 10/02/20 04:45 04:45 WBC 4.1 RBC 3.16 L Hgb 10.2 L Hct 32.3 L MCV 102.2 H MCH 32.3 H MCHC 31.6 L RDW 19.9 H Plt Count 84 L MPV 9.6 Sodium 137 Potassium 3.4 L Chloride 96 L Carbon Dioxide 36 H Anion Gap 8.0 BUN 43 H Creatinine 2.57 H Estimated GFR 25.8 Glucose 99 Calcium 8.5 Slides for Path Review YES Orders (Last 24 hours) Category Date Time Status CHEST 1 VIEW (PORTABLE) Routine Exams 10/02/20 07:00 Taken BMP AM.LAB Lab 10/02/20 04:45 Completed CBC AM.LAB Lab 10/02/20 04:45 Completed Patient Care Notes (Last 24 hours) 10/02/20 14:20 Physical Therapy Note by Jolie Beltran PT. SEEN BY PDebbie BID THIS DATE. SOMEWHAT CONFUSED. HAS BEEN RUNNING A TEMP MOST OF THE DAY. 3 L O2,. LINARES CATH IN PLACE. PERFORMED SUPINE TO SIT W/ MOD ASSIST. TRANSFERRED BED TO CHAIR W/ MOD ASSIST X 2 W/ ROLLER WALKER. PT. FATIGUES QUICKLY AND HAS DIFFICULTY TOLERATING WB D/T SEVERE WEAKNESS AND DECONDITIONING. HAD DIFFICULTY OBTAINING O2 SAT D/T POOR PERFUSION. PT. HAD SLID DOWN IN RECLINER AND WAS NOT ABLE TO PUSH HIMSELF BACK UP INTO CHAIR. REQUIRED MOD-MAX ASSIST X 2 TO SCOOT. FEEL REHAB WILL BE SLOW AND PROGNOSIS DIFFICULT TO DETERMINE D/T ACUTE ILLNESS STILL PRESENT. WILL PROGRESS W/ PT TOLERATED AND CONT. TO MAXIMIZE FUNCTIONAL POTENTIAL. JOLIE BELTRAN, PT Initialized on 10/02/20 14:20 - END OF NOTE 10/02/20 14:17 Nursing Note by Alyssa Hager assisted back to bed x4 assist. Initialized on 10/02/20 14:17 - END OF NOTE 10/02/20 12:30 Nursing Note by Alyssa Hager dr. at bedside, rounding on pt. plan to swing pt when medically stable. pt is still running fevers. Initialized on 10/02/20 12:30 - END OF NOTE 10/02/20 11:57 Case Management Note by Kate Royal PATIENT CONFUSED THIS AM. WHEN I ASKED IF HE HAD BEEN UP THIS WEEKEND HE STATED "I GOT IN TROUBLE BECAUSE I WENT OUTSIDE AND 3 DOORS DOWN." PATIENT IS UNABLE TO AMBULATE PER SELF. S/W POA- SHE WOULD LIKE PATIENT TO SWING FOR REHAB PRIOR TO RETURNING HOME. DR. LENORE IN AGREEMENT. WILL SWING WHEN MEDICALLY READY Initialized on 10/02/20 11:57 - END OF NOTE Code(s): J18.9 - PNEUMONIA, UNSPECIFIED ORGANISM (2) Atrial fibrillation Current Visit: Yes Status: Chronic Qualifiers: Atrial fibrillation type: paroxysmal Qualified Code(s): I48.0 - Paroxysmal atrial fibrillation Code(s): I48.91 - UNSPECIFIED ATRIAL FIBRILLATION (3) CAD (coronary artery disease) Current Visit: No Status: Chronic Qualifiers: Coronary Disease-Associated Artery/Lesion type: [place] artery [place] vs. transplanted heart: [place] heart Associated angina: without angina Qualified Code(s): I25.10 - Atherosclerotic heart disease of [place] coronary artery without angina pectoris Code(s): I25.10 - ATHSCL HEART DISEASE OF [place] CORONARY ARTERY W/O ANG PCTRS (4) COPD (chronic obstructive pulmonary disease) Current Visit: No Status: Chronic Qualifiers: COPD type: chronic bronchitis Chronic bronchitis type: simple Qualified Code(s): J41.0 - Simple chronic bronchitis (5) Chronic renal disease, stage 4, severely decreased glomerular filtration rate (GFR) between 15-29 mL/min/1.73 square meter Current Visit: Yes Status: Chronic Code(s): N18.4 - CHRONIC KIDNEY DISEASE, STAGE 4 (SEVERE)
[2020-10-02] MEDS: Zocor 10MG PO SCH (21:55)
[2020-10-02] MEDS: Neurontin 400 MG PO SCH (21:55)
--- NOTE | 2020-10-03 04:09 | XRAY ---
Exam: AP upright portable chest film from 10/02/2020. Comparison: AP portable chest film from 09/30/2020. Indication: Follow-up pneumonia. Findings: The heart size again appears mildly enlarged. A calcified, mildly tortuous thoracic aorta is seen. The level of inspiration is not as deep as that seen on 09/30/2020. This appears to be causing some mild vascular crowding/congestion within the right perihilar region and right lung base. Granulomatous calcifications are again seen at the lower margin of the right hilum. There is a small calcified granuloma at the right lung base. Emphysematous changes are seen within the upper lung bob, more prominent on the right. Extensive calcific pleural plaque is seen throughout the left lower lung field. I believe there are some superimposed chronic appearing interstitial markings in this projection as well. A definite pneumonic infiltrate is not seen. The left lung apex remains clear. There is evidence of prior kyphoplasty at T8, T9, and L1. Impression: 1. The level of inspiration is not as deep as that seen on 09/30/2020. Interval mild increase in bronchovascular lung markings at the right lung base may reflect mild vascular crowding/congestion. If this does not fit the clinical picture, further evaluation with a repeat CT of the chest without IV contrast may be helpful to compare with prior CT of the chest from 02/23/2020. 2. Extensive calcified pleural plaque and superimposed chronic changes are seen within the left lower lung field representing no significant change. No other definite new parenchymal lung abnormality is seen. 3. Emphysematous chest, old healed granulomatous disease on the right, mild cardiomegaly, and evidence of multilevel kyphoplasty are again seen.
[2020-10-03] MEDS: PROVENTIL 2.5 MG/3 ML NEB IH SCH ×3 (05:16→18:59)
[2020-10-03] MEDS: Zosyn 3.375 GM Vial 3.375 GM in Sodium Chloride 100ML MINI-BAG PLUS 100 ML IV SCH ×3 (05:37→21:15)
[2020-10-03] MEDS: Sodium Chloride 0.9% 10 ML FLUSH Syringe IV SCH ×3 (05:37→21:17)
[2020-10-03] MEDS: BUMEX 1 MG PO SCH ×2 (09:05→16:32)
[2020-10-03] MEDS: Pepcid 20 MG PO SCH ×2 (09:05→21:16)
[2020-10-03] MEDS: ELIQUIS 2.5 MG TABLET PO SCH ×2 (09:07→21:16)
[2020-10-03] MEDS: Protonix 40MG Tablet PO SCH (09:07)
[2020-10-03] MEDS: Neurontin 100 MG PO SCH (09:07)
[2020-10-03] MEDS: Zaroxolyn 2.5 MG PO SCH (09:07)
[2020-10-03] MEDS: MAG-OX 400 PO SCH ×2 (09:07→21:16)
[2020-10-03] MEDS: FOLATE 1 MG PO SCH (09:07)
[2020-10-03] MEDS: Lopressor 50 MG PO SCH ×2 (09:07→21:17)
[2020-10-03] MEDS: Klor Con 10 MEQ PO SCH ×2 (09:07→21:16)
[2020-10-03] MEDS: MEDICATION INTERVENTION MC SCH (09:08)
--- NOTE | 2020-10-03 11:04 | PCM.NOTE ---
Date and Time: 10/03/20 1102 Subjective Assessment: still running fever. otherwise doing ok - Review of Systems Constitutional: Fever, No Chills Eyes: No Symptoms Ears, Nose, & Throat: No Symptoms Respiratory: Orthopnea, Short Of Breath, No Cough Cardiac: No Chest Pain, No Edema, No Syncope Abdominal/Gastrointestinal: No Abdominal Pain, No Nausea, No Vomiting, No Diarrhea Genitourinary Symptoms: No Dysuria Musculoskeletal: No Back Pain, No Neck Pain Skin: No Rash Neurological: No Dizziness, No Focal Weakness, No Sensory Changes Psychological: No Symptoms Endocrine: No Symptoms Hematologic/Lymphatic: No Symptoms Immunological/Allergic: No Symptoms Objective Exam General Appearance: no apparent distress, alert Neurologic Exam: alert, oriented x 3, cooperative, normal mood/affect, nml cerebellar function, sensation nml, No motor deficits Skin Exam: normal color, warm, dry Wound Assessment: Skin/Wound Assessment Wound/Incision Assessment Start: 09/28/20 19:05 Text: Status: Active Freq: Q6H Protocol: Document 10/03/20 02:00 GILLIAN (Rec: 10/03/20 04:07 GILLIAN [id number]) Wound/Incision Assessment Right Great Toe Wound Assessment Shift Assessment Wound Type Pressure Ulcer Wound Stage Deep Tissue Injury Drainage Amount None General Appearance Open to air Surrounding Tissue [place] Left Heel Wound Assessment Shift Assessment Wound Type Pressure Ulcer Wound Stage Deep Tissue Injury Drainage Amount None General Appearance Open to air Surrounding Tissue [place] Right [place] Wound Assessment Shift Assessment Wound Type Pressure Ulcer Wound Stage Stage II Drainage Amount None General Appearance Open to air Wound Bed Greatest Portion [place] Surrounding Tissue [place] Left [place] Wound Assessment Shift Assessment Wound Type Pressure Ulcer Wound Stage Stage II Drainage Amount None Wound Bed Greatest Portion [place] Red Surrounding Tissue [place] Posterior Left Hip Wound Assessment Shift Assessment Wound Type Pressure Ulcer Wound Stage Stage II Drainage Amount None General Appearance Open to air Surrounding Tissue [place] Left Calf Wound Assessment Shift Assessment Wound Type Pressure Ulcer Wound Stage Deep Tissue Injury Drainage Amount None General Appearance Well Approximated,Open to air Surrounding Tissue [place] Eye Exam: PERRL, EOMI, eyes nml inspection Ears, Nose, Throat Exam: normal ENT inspection, pharynx normal, moist mucous membranes Neck Exam: normal inspection, non-tender, supple, full range of motion Respiratory Exam: crackles/rales, rhonchi, wheezing, No respiratory distress Cardiovascular Exam: regular rate/rhythm, normal heart sounds Gastrointestinal/Abdomen Exam: soft, No tenderness, No mass Extremity Exam: normal inspection, normal range of motion Back Exam: normal inspection, normal range of motion, No CVA tenderness, No ve rtebral tenderness Male Genitalia Exam: deferred Rectal Exam: deferred OBJECTIVE DATA Vital Signs: Vital Signs - 24 hr Temp Pulse Resp BP Pulse Ox 10/03/20 07:52 97.5 F 89 19 112/51 97 10/03/20 05:17 63 14 100 10/03/20 04:00 98.4 F 61 20 127/46 97 10/02/20 23:25 99.0 F 82 23 109/72 93 L 10/02/20 22:00 102 F 10/02/20 20:00 99.9 F 80 20 114/53 94 L 10/02/20 16:58 82 20 94 L 10/02/20 16:00 99 F 98 H 18 116/49 94 L 10/02/20 12:32 78 20 95 10/02/20 12:10 100.9 F 91 H 24 139/57 94 L 10/02/20 12:00 100.8 F 77 19 139/57 96 Oxygen-Last 24 hours Oxygen Flowrate (L/min)-RT 3 Oxygen Flowrate (L/min)-RT 3 Oxygen Flowrate (L/min)-RT 3 Oxygen Flowrate (L/min)-RT 3 Pain Assessment - Last Documented Pain Intensity 0 Pain Scale Used 0-10 Pain Scale Intake and Output: Intake & Output 09/30/20 10/01/20 10/02/20 10/03/20 11:59 11:59 11:59 11:59 Intake Total 486 1315 1694 830 Output Total 1450 1930 2200 1900 Balance -964 -615 -506 -5530 Weight 67.5 kg 74.5 kg 70.1 kg 68.6 kg Lab Results: Lab Results-Last 24 Hours 09/30/20 Range/Units 10:25 Reporting Documentation ABO Group (Off-Site) Pending Antibody ID 1 Off-Site Pending Radiology Exams: Radiology Procedures Category Date Time Status CHEST 1 VIEW (PORTABLE) Routine Exams 10/02/20 07:00 Completed Multi-Disciplinary Progress Notes: Multi-Disciplinary Progress Notes 10/02/20 14:20 Physical Therapy Note by Jolie Beltran PT. SEEN BY PDebbie BID THIS DATE. SOMEWHAT CONFUSED. HAS BEEN RUNNING A TEMP MOST OF THE DAY. 3 L O2,. LINARES CATH IN PLACE. PERFORMED SUPINE TO SIT W/ MOD ASSIST. TRANSFERRED BED TO CHAIR W/ MOD ASSIST X 2 W/ ROLLER WALKER. PT. FATIGUES QUICKLY AND HAS DIFFICULTY TOLERATING WB D/T SEVERE WEAKNESS AND DECONDITIONING. HAD DIFFICULTY OBTAINING O2 SAT D/T POOR PERFUSION. PT. HAD SLID DOWN IN RECLINER AND WAS NOT ABLE TO PUSH HIMSELF BACK UP INTO CHAIR. REQUIRED MOD-MAX ASSIST X 2 TO SCOOT. FEEL REHAB WILL BE SLOW AND PROGNOSIS DIFFICULT TO DETERMINE D/T ACUTE ILLNESS STILL PRESENT. WILL PROGRESS W/ PT TOLERATED AND CONT. TO MAXIMIZE FUNCTIONAL POTENTIAL. JOLIE BELTRAN, PT Initialized on 10/02/20 14:20 - END OF NOTE 10/02/20 11:57 Case Management Note by Kate Royal PATIENT CONFUSED THIS AM. WHEN I ASKED IF HE HAD BEEN UP THIS WEEKEND HE STATED "I GOT IN TROUBLE BECAUSE I WENT OUTSIDE AND 3 DOORS DOWN." PATIENT IS UNABLE TO AMBULATE PER SELF. S/W POA- SHE WOULD LIKE PATIENT TO SWING FOR REHAB PRIOR TO RETURNING HOME. DR. GROVER IN AGREEMENT. WILL SWING WHEN MEDICALLY READY Initialized on 10/02/20 11:57 - END OF NOTE Assessment/Plan (1) Pneumonia Current Visit: Yes Status: Acute Qualifiers: Laterality: left Lung location: lower lobe of lung Assessment & Plan: Chief Complaint Diagnosis Pneumonia Allergies Allergy/AdvReac Type Severity Reaction Status Date / Time No Known Drug Allergies Allergy Verified 08/31/20 20:38 Vital Signs (Last 24 hours) Temp Pulse Resp BP Pulse Ox 10/03/20 07:52 97.5 F 89 19 112/51 97 10/03/20 05:17 63 14 100 10/03/20 04:00 98.4 F 61 20 127/46 97 10/02/20 23:25 99.0 F 82 23 109/72 93 L 10/02/20 22:00 102 F 10/02/20 20:00 99.9 F 80 20 114/53 94 L 10/02/20 16:58 82 20 94 L 10/02/20 16:00 99 F 98 H 18 116/49 94 L 10/02/20 12:32 78 20 95 10/02/20 12:10 100.9 F 91 H 24 139/57 94 L 10/02/20 12:00 100.8 F 77 19 139/57 96 Home Medications Medication Instructions Recorded Confirmed Last Taken Type Fentanyl 50Mcg Patch [Duragesic 50 mcg TOP Q72H 09/29/20 09/29/20 09/26/20 History 50MCG Patch] Current Medications Generic Name Dose Route Start Last Admin Trade Name Freq PRN Reason Stop Dose Admin Acetaminophen 650 mg 09/30/20 11:24 10/02/20 22:06 Tylenol 325 Mg PO 10/30/20 11:23 650 mg Q4H PRN PRN Administration PAIN AND/OR FEVER Albuterol Sulfate 2.5 mg 09/28/20 19:00 10/03/20 05:16 Proventil 2.5 Mg/3 Ml Neb IH 10/28/20 18:59 2.5 mg TIDRT SIMBA Administration Apixaban 2.5 mg 09/29/20 10:00 10/03/20 09:07 Eliquis 2.5 Mg Tablet PO 10/29/20 09:59 2.5 mg BID SIMBA Administration Bumetanide 2 mg 09/29/20 10:00 10/03/20 09:05 Bumex 1 Mg PO 10/29/20 09:59 2 mg BID DIURETIC SIMBA Administration Famotidine 20 mg 09/29/20 10:00 10/03/20 09:05 Pepcid 20 Mg PO 10/29/20 09:59 20 mg BID SIMBA Administration Fentanyl 50 mcg 09/29/20 14:00 10/02/20 14:32 Duragesic 50mcg Patch TD 10/04/20 13:59 50 mcg Q72H SIMBA Administration Folic Acid 1 mg 09/29/20 10:00 10/03/20 09:07 Folate 1 Mg PO 10/29/20 09:59 1 mg DAILY SIMBA Administration Gabapentin 100 mg 09/29/20 10:00 10/03/20 09:07 Neurontin 100 Mg PO 10/29/20 09:59 100 mg DAILY SIMBA Administration Gabapentin 400 mg 09/29/20 22:00 10/02/20 21:55 Neurontin 400 Mg PO 10/29/20 21:59 400 mg HS SIMBA Administration Piperacillin Sod/Tazobactam 100 mls @ 200 mls/hr 09/28/20 22:00 10/03/20 05:37 Sod 3.375 gm/ Sodium Chloride IV 10/28/20 21:59 200 mls/hr Q8HT SIMBA Administration Azithromycin 500 mg in 250 mls @ 125 mls/hr 09/29/20 18:00 10/02/20 18:10 Zithromax 500 Mg/ 250 Ml Nacl Premix IV 10/29/20 17:59 125 mls/hr 1800 SIMBA Administration Sodium Chloride 500 mls @ 50 mls/hr 09/30/20 09:50 Sodium Chloride 0.9% 500 Ml IV 10/30/20 09:49 .Q10H PRN Magnesium Oxide 400 mg 09/29/20 10:00 10/03/20 09:07 Mag-Ox 400 PO 10/29/20 09:59 400 mg BID SIMBA Administration Metolazone 2.5 mg 09/29/20 10:00 10/03/20 09:07 Zaroxolyn 2.5 Mg PO 10/29/20 09:59 2.5 mg Q48H SIMBA Administration Metoprolol Tartrate 50 mg 09/29/20 10:00 10/03/20 09:07 Lopressor 50 Mg PO 10/29/20 09:59 50 mg Q12HT SIMBA Administration Miscellaneous Information 0 each 09/29/20 10:00 10/03/20 09:08 Medication Intervention 10/29/20 09:59 Not Given DAILY SIMBA Morphine Sulfate 2 mg 09/29/20 12:16 Morphine Sulfate 2 Mg Inj IV 10/04/20 12:15 Q4H PRN PRN PAIN Pantoprazole Sodium 40 mg 09/29/20 10:00 10/03/20 09:07 Protonix 40mg Tablet PO 10/29/20 09:59 40 mg DAILY SIMBA Administration Potassium Chloride 20 meq 09/29/20 22:00 10/02/20 21:55 Klor Con 10 Meq PO 10/29/20 21:59 20 meq HS SIMBA Administration Potassium Chloride 30 meq 09/29/20 10:00 10/03/20 09:07 Klor Con 10 Meq PO 10/29/20 09:59 30 meq DAILY SIMBA Administration Simvastatin 10 mg 09/29/20 22:00 10/02/20 21:55 Zocor 10mg PO 10/29/20 21:59 10 mg HS SIMBA Administration Sodium Chloride 10 ml 09/29/20 14:00 10/03/20 05:37 Sodium Chloride 0.9% 10 Ml Flush Syringe IV 10/29/20 13:59 10 ml Q8HT SIMBA Administration Sodium Chloride 10 ml 09/29/20 07:15 Sodium Chloride 0.9% 10 Ml Flush Syringe IV 10/29/20 07:14 PRN PRN Discontinued Medications Generic Name Dose Route Start Last Admin Trade Name Freq PRN Reason Stop Dose Admin Acetaminophen Confirm 09/28/20 11:21 [place] 650 Mg Administered 09/28/20 11:22 Dose 650 mg .ROUTE .STK-MED ONE Acetaminophen 650 mg 09/28/20 11:41 09/28/20 11:44 [place] 650 Mg NM 09/28/20 11:42 650 mg STAT ONE Administration Sodium Chloride Confirm 09/28/20 11:17 Sodium Chloride 0.9% 1000 Ml Administered 09/28/20 11:18 Dose 1,000 mls @ ud .ROUTE .STK-MED ONE Sodium Chloride 1,000 mls @ 999 mls/hr 09/28/20 11:21 09/28/20 13:10 Sodium Chloride 0.9% 1000 Ml IV 09/28/20 12:21 Infused .Q1H1M STA Infusion Piperacillin Sod/Tazobactam 100 mls @ 200 mls/hr 09/28/20 11:22 09/28/20 11:44 Sod 3.375 gm/ Sodium Chloride IV 09/28/20 11:51 200 mls/hr STAT ONE Administration Sodium Chloride Confirm 09/28/20 11:23 Sodium Chloride 100ml Mini-Bag Plus Administered 09/28/20 11:24 Dose 100 mls @ ud IV .STK-MED ONE Azithromycin 500 mg in 250 mls @ 250 mls/hr 09/29/20 10:00 Zithromax 500 Mg/ 250 Ml Nacl Premix IV 10/29/20 09:59 Q24H10 SIMBA Piperacillin Sod/Tazobactam 100 mls @ 200 mls/hr 09/29/20 00:00 Sod 3.375 gm/ Sodium Chloride IV 10/29/20 00:00 Q6HT SIMBA Piperacillin Sod/Tazobactam Sod Confirm 09/28/20 11:23 Zosyn 3.375 Gm Vial Administered 09/28/20 11:24 Dose 3.375 gm IV .STK-MED ONE Intake & Output (Last 24 hours) 09/30/20 10/01/20 10/02/20 10/03/20 11:59 11:59 11:59 11:59 Intake Total 486 1315 1694 830 Output Total 1450 1930 2200 1900 Balance -924 -615 -506 -9350 Weight 67.5 kg 74.5 kg 70.1 kg 68.6 kg Microbiology Results (Last 24 hours) 09/28/20 11:35 Blood Aerobic Culture - Pending 09/28/20 11:35 Blood Aerobic Culture - Pending Laboratory Results (Last 24 hours) 09/30/20 10:25 Reporting Documentation Patient Care Notes (Last 24 hours) 10/02/20 23:16 Nursing Note by NHAN MARIO DURING 0000 VITALS, INTERNAL TEMP FROM LINARES READ 102. ORAL TEMP 99 AND AXILAARY TEMP 98.8. TYLENOL GIVEN EARLIER IN SHIFT AND COOL CLOTHES PLACED ON PT'S FOREHEAD AND NECK. WILL CONTINUE TO MONITOR. Initialized on 10/02/20 23:16 - END OF NOTE 10/02/20 14:20 Physical Therapy Note by Jolie Beltran PT. SEEN BY P.TPaulette BID THIS DATE. SOMEWHAT CONFUSED. HAS BEEN RUNNING A TEMP MOST OF THE DAY. 3 L O2,. LINARES CATH IN PLACE. PERFORMED SUPINE TO SIT W/ MOD ASSIST. TRANSFERRED BED TO CHAIR W/ MOD ASSIST X 2 W/ ROLLER WALKER. PT. FATIGUES QUICKLY AND HAS DIFFICULTY TOLERATING WB D/T SEVERE WEAKNESS AND DECONDITIONING. HAD DIFFICULTY OBTAINING O2 SAT D/T POOR PERFUSION. PT. HAD SLID DOWN IN RECLINER AND WAS NOT ABLE TO PUSH HIMSELF BACK UP INTO CHAIR. REQUIRED MOD-MAX ASSIST X 2 TO SCOOT. FEEL REHAB WILL BE SLOW AND PROGNOSIS DIFFICULT TO DETERMINE D/T ACUTE ILLNESS STILL PRESENT. WILL PROGRESS W/ PT TOLERATED AND CONT. TO MAXIMIZE FUNCTIONAL POTENTIAL. JOLIE BELTRAN PT Initialized on 10/02/20 14:20 - END OF NOTE 10/02/20 14:17 Nursing Note by Alyssa Hager assisted back to bed x4 assist. Initialized on 10/02/20 14:17 - END OF NOTE 10/02/20 12:30 Nursing Note by Alyssa Hager dr. at bedside, rounding on pt. plan to swing pt when medically stable. pt is still running fevers. Initialized on 10/02/20 12:30 - END OF NOTE 10/02/20 11:57 Case Management Note by Kate Royal PATIENT CONFUSED THIS AM. WHEN I ASKED IF HE HAD BEEN UP THIS WEEKEND HE STATED "I GOT IN TROUBLE BECAUSE I WENT OUTSIDE AND 3 DOORS DOWN." PATIENT IS UNABLE TO AMBULATE PER SELF. S/W POA- SHE WOULD LIKE PATIENT TO SWING FOR REHAB PRIOR TO RETURNING HOME. DR. GROVER IN AGREEMENT. WILL SWING WHEN MEDICALLY READY Initialized on 10/02/20 11:57 - END OF NOTE Code(s): J18.9 - PNEUMONIA, UNSPECIFIED ORGANISM (2) Atrial fibrillation Current Visit: Yes Status: Chronic Qualifiers: Atrial fibrillation type: paroxysmal Qualified Code(s): I48.0 - Paroxysmal atrial fibrillation Code(s): I48.91 - UNSPECIFIED ATRIAL FIBRILLATION (3) CAD (coronary artery disease) Current Visit: No Status: Chronic Qualifiers: Coronary Disease-Associated Artery/Lesion type: [place] artery [place] vs. transplanted heart: [place] heart Associated angina: without angina Qualified Code(s): I25.10 - Atherosclerotic heart disease of [place] coronary artery without angina pectoris Code(s): I25.10 - ATHSCL HEART DISEASE OF [place] CORONARY ARTERY W/O ANG PCTRS (4) COPD (chronic obstructive pulmonary disease) Current Visit: No Status: Chronic Qualifiers: COPD type: chronic bronchitis Chronic bronchitis type: simple Qualified Code(s): J41.0 - Simple chronic bronchitis (5) Chronic renal disease, stage 4, severely decreased glomerular filtration rate (GFR) between 15-29 mL/min/1.73 square meter Current Visit: Yes Status: Chronic Code(s): N18.4 - CHRONIC KIDNEY DISEASE, STAGE 4 (SEVERE)
[2020-10-03] MEDS: TYLENOL 325 MG PO PRN (14:03)
[2020-10-03] MEDS: MOTRIN 200 MG PO PRN (16:32)
[2020-10-03] MEDS: Zithromax 500 MG/ 250 ML NaCl Premix 500 MG/250 ML IVPB IV SCH (18:52)
[2020-10-03] MEDS: Neurontin 400 MG PO SCH (21:16)
[2020-10-03] MEDS: Zocor 10MG PO SCH (21:16)
[2020-10-04] MEDS: Zosyn 3.375 GM Vial 3.375 GM in Sodium Chloride 100ML MINI-BAG PLUS 100 ML IV SCH ×3 (05:18→21:58)
[2020-10-04] MEDS: Sodium Chloride 0.9% 10 ML FLUSH Syringe IV SCH ×3 (05:18→21:59)
[2020-10-04] MEDS: PROVENTIL 2.5 MG/3 ML NEB IH SCH ×3 (05:27→19:01)
[2020-10-04] MEDS: Pepcid 20 MG PO SCH ×2 (10:18→21:58)
[2020-10-04] MEDS: MAG-OX 400 PO SCH ×2 (10:18→21:58)
[2020-10-04] MEDS: Neurontin 100 MG PO SCH (10:18)
[2020-10-04] MEDS: FOLATE 1 MG PO SCH (10:19)
[2020-10-04] MEDS: BUMEX 1 MG PO SCH ×2 (10:19→17:13)
[2020-10-04] MEDS: ELIQUIS 2.5 MG TABLET PO SCH ×2 (10:19→21:58)
[2020-10-04] MEDS: Protonix 40MG Tablet PO SCH (10:19)
[2020-10-04] MEDS: Lopressor 50 MG PO SCH ×2 (10:19→21:58)
[2020-10-04] MEDS: Klor Con 10 MEQ PO SCH ×2 (10:19→21:58)
[2020-10-04] MEDS: MEDICATION INTERVENTION MC SCH (10:20)
[2020-10-04] MEDS: MOTRIN 200 MG PO PRN ×2 (10:21→17:13)
--- NOTE | 2020-10-04 11:15 | PCM.NOTE ---
Date and Time: 10/04/201113 Subjective Assessment: doing ok - Review of Systems Constitutional: No Fever, No Chills Eyes: No Symptoms Ears, Nose, & Throat: No Symptoms Respiratory: No Cough, No Short Of Breath Cardiac: No Chest Pain, No Edema, No Syncope Abdominal/Gastrointestinal: No Abdominal Pain, No Nausea, No Vomiting, No Diarrhea Genitourinary Symptoms: No Dysuria Musculoskeletal: No Back Pain, No Neck Pain Skin: No Rash Neurological: No Dizziness, No Focal Weakness, No Sensory Changes Psychological: No Symptoms Endocrine: No Symptoms Hematologic/Lymphatic: No Symptoms Immunological/Allergic: No Symptoms Objective Exam General Appearance: no apparent distress, alert Neurologic Exam: alert, oriented x 3, cooperative, normal mood/affect, nml cerebellar function, sensation nml, No motor deficits Skin Exam: normal color, warm, dry Wound Assessment: Skin/Wound Assessment Wound/Incision Assessment Start: 09/28/20 19:05 Text: Status: Active Freq: Q6H Protocol: Document 10/04/20 08:00 GILLIAN (Rec: 10/04/20 10:35 GILLIAN [id number]) Wound/Incision Assessment Right Great Toe Wound Assessment Shift Assessment Wound Type Pressure Ulcer Wound Stage Deep Tissue Injury Drainage Amount None General Appearance Open to air Surrounding Tissue [place] Left Heel Wound Assessment Shift Assessment Wound Type Pressure Ulcer Wound Stage Deep Tissue Injury Drainage Amount None General Appearance Open to air Surrounding Tissue [place] Wound Assessment Shift Assessment Wound Type Pressure Ulcer Wound Stage Stage II Drainage Amount None General Appearance Open to air Wound Bed Greatest Portion [place] Surrounding Tissue [place] Wound Assessment Shift Assessment Wound Type Pressure Ulcer Wound Stage Stage II Drainage Amount None Wound Bed Greatest Portion [place] Surrounding Tissue [place] Posterior Left Hip Wound Assessment Shift Assessment Wound Type Pressure Ulcer Wound Stage Stage II Drainage Amount None General Appearance Open to air Surrounding Tissue [place] Left Calf Wound Assessment Shift Assessment Wound Type Pressure Ulcer Wound Stage Deep Tissue Injury Drainage Amount None General Appearance Well Approximated,Open to air Surrounding Tissue [place] Eye Exam: PERRL, EOMI, eyes nml inspection Ears, Nose, Throat Exam: normal ENT inspection, pharynx normal, moist mucous mem branes Neck Exam: normal inspection, non-tender, supple, full range of motion Respiratory Exam: normal breath sounds, lungs clear, No respiratory distress Cardiovascular Exam: regular rate/rhythm, normal heart sounds Gastrointestinal/Abdomen Exam: soft, No tenderness, No mass Extremity Exam: normal inspection, normal range of motion Back Exam: normal inspection, normal range of motion, No CVA tenderness, No vertebral tenderness Male Genitalia Exam: deferred Rectal Exam: deferred OBJECTIVE DATA Vital Signs: Vital Signs - 24 hr Temp Pulse Resp BP Pulse Ox 10/04/20 07:31 99.5 F 87 18 126/65 97 10/04/20 05:27 78 18 100 10/04/20 04:00 98.2 F 71 15 141/83 99 10/04/20 00:00 98.1 F 72 14 120/57 99 10/03/20 19:33 100.2 F 88 18 97/64 95 10/03/20 19:01 74 20 99 10/03/20 16:00 101.5 F 77 18 95/58 90 L 10/03/20 12:34 84 20 94 L 10/03/20 12:00 98.2 F 81 20 100/80 94 L Pain Assessment - Last Documented Pain Intensity 0 Pain Scale Used 0-10 Pain Scale Intake and Output: Intake & Output 10/01/20 10/02/20 10/03/20 10/04/20 11:59 11:59 11:59 11:59 Intake Total 1315 9980 342 5644 Output Total 1930 2200 1900 1500 Balance -612 -891 -1681 257 Weight 74.5 kg 70.1 kg 68.6 kg 72 kg Multi-Disciplinary Progress Notes: Multi-Disciplinary Progress Notes 10/03/20 17:26 Physical Therapy Note by Jolie Liu ASSISTED NURSING W/ BED MOBILITY FOR PATIENT CARE THIS PM. PT. HAS BEEN CONFUSED TODAY AND RUNNING LOW GRADE TEMP. PT. HAS BOWEL MOVEMENT IN BED. NOTED RED FEET W/ PURPLE DISCOLORATION AT TIP OF R GREAT TOE. PURPLISH MOTTLING NOTED IN SOME AREAS OF LL AND KNEES. PT. HAD SOME BACK PN W/ ROLLING. DID NOT TRANSFER OUT OF BED D/T CONFUSION AND LOW GRADE TEMP. WILL ATTEMPT TOMORROW IF PT. IMPROVES MEDICALLY. REHAB PROGNOSIS VERY GUARDED D/T DECLINE IN MEDICAL STATUS. JOLIE LIU PT Initialized on 10/03/20 17:26 - END OF NOTE Assessment/Plan (1) Pneumonia Current Visit: Yes Status: Acute Qualifiers: Laterality: left Lung location: lower lobe of lung Assessment & Plan: Last Vital Signs Temp 99.5 F 10/04/20 07:31 Pulse 87 10/04/20 07:31 Resp 18 10/04/20 07:31 BP 126/65 10/04/20 07:31 Pulse Ox 97 10/04/20 07:31 Allergies No Known Drug Allergies Allergy (Verified 08/31/20 20:38) Active Medications Acetaminophen (Tylenol 325 Mg) 650 mg PO Q4H PRN PRN PRN Reason: PAIN AND/OR FEVER Stop: 10/30/20 11:23 Last Admin: 10/03/20 14:03 Dose: 650 mg Documented by: Albuterol Sulfate (Proventil 2.5 Mg/3 Ml Neb) 2.5 mg IH TIDRT [facility] Stop: 10/28/20 18:59 Last Admin: 10/04/20 05:27 Dose: 2.5 mg Documented by: Apixaban (Eliquis 2.5 Mg Tablet) 2.5 mg PO BID [facility] Stop: 10/29/20 09:59 Last Admin: 10/04/20 10:19 Dose: 2.5 mg Documented by: Bumetanide (Bumex 1 Mg) 2 mg PO BID DIURETIC [facility] Stop: 10/29/20 09:59 Last Admin: 10/04/20 10:19 Dose: 2 mg Documented by: Famotidine (Pepcid 20 Mg) 20 mg PO BID [facility] Stop: 10/29/20 09:59 Last Admin: 10/04/20 10:18 Dose: 20 mg Documented by: Fentanyl (Duragesic 50mcg Patch) 50 mcg TD Q72H [facility] Stop: 10/04/20 13:59 Last Admin: 10/02/20 14:32 Dose: 50 mcg Documented by: Folic Acid (Folate 1 Mg) 1 mg PO DAILY [facility] Stop: 10/29/20 09:59 Last Admin: 10/04/20 10:19 Dose: 1 mg Documented by: Gabapentin (Neurontin 100 Mg) 100 mg PO DAILY [facility] Stop: 10/29/20 09:59 Last Admin: 10/04/20 10:18 Dose: 100 mg Documented by: Gabapentin (Neurontin 400 Mg) 400 mg PO HS [facility] Stop: 10/29/20 21:59 Last Admin: 10/03/20 21:16 Dose: 400 mg Documented by: Piperacillin Sod/Tazobactam (Sod 3.375 gm/ Sodium Chloride) 100 mls @ 200 mls/hr IV Q8HT [facility] Stop: 10/28/20 21:59 Last Admin: 10/04/20 05:18 Dose: 200 mls/hr Documented by: Azithromycin (Zithromax 500 Mg/ 250 Ml Nacl Premix) 500 mg in 250 mls @ 125 mls/hr IV 1800 [facility] Stop: 10/29/20 17:59 Last Admin: 10/03/20 18:52 Dose: 125 mls/hr Documented by: Sodium Chloride (Sodium Chloride 0.9% 500 Ml) 500 mls @ 50 mls/hr IV .Q10H PRN Stop: 10/30/20 09:49 Ibuprofen (Motrin 200 Mg) 200 mg PO Q4H PRN PRN Reason: FEVER Stop: 11/02/20 15:49 Last Admin: 10/04/20 10:21 Dose: 200 mg Documented by: Magnesium Oxide (Mag-Ox 400) 400 mg PO BID [facility] Stop: 10/29/20 09:59 Last Admin: 10/04/20 10:18 Dose: 400 mg Documented by: Metolazone (Zaroxolyn 2.5 Mg) 2.5 mg PO Q48H [facility] Stop: 10/29/20 09:59 Last Admin: 10/03/20 09:07 Dose: 2.5 mg Documented by: Metoprolol Tartrate (Lopressor 50 Mg) 50 mg PO Q12HT [facility] Stop: 10/29/20 09:59 Last Admin: 10/04/20 10:19 Dose: 50 mg Documented by: Miscellaneous Information (Medication Intervention) 0 each MC DAILY [facility] Stop: 10/29/20 09:59 Last Admin: 10/04/20 10:20 Dose: Not Given Documented by: Morphine Sulfate (Morphine Sulfate 2 Mg Inj) 2 mg IV Q4H PRN PRN PRN Reason: PAIN Stop: 10/04/20 12:15 Pantoprazole Sodium (Protonix 40mg Tablet) 40 mg PO DAILY [facility] Stop: 10/29/20 09:59 Last Admin: 10/04/20 10:19 Dose: 40 mg Documented by: Potassium Chloride (Klor Con 10 Meq) 20 meq PO HS [facility] Stop: 10/29/20 21:59 Last Admin: 10/03/20 21:16 Dose: 20 meq Documented by: Potassium Chloride (Klor Con 10 Meq) 30 meq PO DAILY [facility] Stop: 10/29/20 09:59 Last Admin: 10/04/20 10:19 Dose: 30 meq Documented by: Simvastatin (Zocor 10mg) 10 mg PO HS [facility] Stop: 10/29/20 21:59 Last Admin: 10/03/20 21:16 Dose: 10 mg Documented by: Sodium Chloride (Sodium Chloride 0.9% 10 Ml Flush Syringe) 10 ml IV Q8HT [facility] Stop: 10/29/20 13:59 Last Admin: 10/04/20 05:18 Dose: 10 ml Documented by: Sodium Chloride (Sodium Chloride 0.9% 10 Ml Flush Syringe) 10 ml IV PRN PRN Stop: 10/29/20 07:14 Intake & Output 10/03/20 10/04/20 11:59 11:59 Intake Total 830 1757 Output Total 1900 1500 Balance -1070 257 Weight 68.6 kg 72 kg Orders 10/03/20 15:50 Ibuprofen 200 mg [Motrin 200 mg] 200 mg PO Q4H PRN 10/03/20 16:05 BLOOD CULTURE Urgent Code(s): J18.9 - PNEUMONIA, UNSPECIFIED ORGANISM (2) Atrial fibrillation Current Visit: Yes Status: Chronic Qualifiers: Atrial fibrillation type: paroxysmal Qualified Code(s): I48.0 - Paroxysmal atrial fibrillation Code(s): I48.91 - UNSPECIFIED ATRIAL FIBRILLATION (3) CAD (coronary artery disease) Current Visit: No Status: Chronic Qualifiers: Coronary Disease-Associated Artery/Lesion type: [place] artery [place] vs. transplanted heart: [place] heart Associated angina: without angina Qualified Code(s): I25.10 - Atherosclerotic heart disease of [place] coronary artery without angina pectoris Code(s): I25.10 - ATHSCL HEART DISEASE OF [place] CORONARY ARTERY W/O ANG PCTRS (4) COPD (chronic obstructive pulmonary disease) Current Visit: No Status: Chronic Qualifiers: COPD type: chronic bronchitis Chronic bronchitis type: simple Qualified Code(s): J41.0 - Simple chronic bronchitis (5) Chronic renal disease, stage 4, severely decreased glomerular filtration rate (GFR) between 15-29 mL/min/1.73 square meter Current Visit: Yes Status: Chronic Code(s): N18.4 - CHRONIC KIDNEY DISEASE, STAGE 4 (SEVERE)
[2020-10-04] MEDS ORDERED: PROVENTIL 2.5 MG/3 ML NEB IH ONE (13:16)
[2020-10-04] MEDS: Zithromax 500 MG/ 250 ML NaCl Premix 500 MG/250 ML IVPB IV SCH (17:14)
[2020-10-04] MEDS: Zocor 10MG PO SCH (21:58)
[2020-10-04] MEDS: Neurontin 400 MG PO SCH (21:58)
[2020-10-05] MEDS: PROVENTIL 2.5 MG/3 ML NEB IH SCH (05:41)
[2020-10-05] MEDS: Zosyn 3.375 GM Vial 3.375 GM in Sodium Chloride 100ML MINI-BAG PLUS 100 ML IV SCH (06:18)
[2020-10-05] MEDS: Sodium Chloride 0.9% 10 ML FLUSH Syringe IV SCH (06:19)
[2020-10-05 07:45] VITALS: BP 124/52; PULSE 79; O2SAT 92
--- NOTE | 2020-10-05 07:54 | PCM.NOTE ---
Date and Time: 10/05/20 0752 Subjective Assessment: doing ok - Review of Systems Constitutional: No Fever, No Chills Eyes: No Symptoms Ears, Nose, & Throat: No Symptoms Respiratory: No Cough, No Short Of Breath Cardiac: No Chest Pain, No Edema, No Syncope Abdominal/Gastrointestinal: No Abdominal Pain, No Nausea, No Vomiting, No Diarrhea Genitourinary Symptoms: No Dysuria Musculoskeletal: No Back Pain, No Neck Pain Skin: No Rash Neurological: No Dizziness, No Focal Weakness, No Sensory Changes Psychological: No Symptoms Endocrine: No Symptoms Hematologic/Lymphatic: No Symptoms Immunological/Allergic: No Symptoms Objective Exam General Appearance: no apparent distress, alert Neurologic Exam: alert, oriented x 3, cooperative, normal mood/affect, nml cerebellar function, sensation nml, No motor deficits Skin Exam: normal color, warm, dry Wound Assessment: Skin/Wound Assessment Wound/Incision Assessment Start: 09/28/20 19:05 Text: Status: Active Freq: Q6H Protocol: Document 10/05/20 02:00 MS (Rec: 10/05/20 04:03 MS [id number]) Wound/Incision Assessment Right Great Toe Wound Assessment Shift Assessment Wound Type Pressure Ulcer Wound Stage Deep Tissue Injury Drainage Amount None General Appearance Open to air Surrounding Tissue [place] Left Heel Wound Assessment Shift Assessment Wound Type Pressure Ulcer Wound Stage Deep Tissue Injury Drainage Amount None General Appearance Open to air Surrounding Tissue [place] Right [place] Wound Assessment Shift Assessment Wound Type Pressure Ulcer Wound Stage Stage II Drainage Amount None General Appearance Open to air Wound Bed Greatest Portion [place] Red Surrounding Tissue [place] Left Buttock Wound Assessment Shift Assessment Wound Type Pressure Ulcer Wound Stage Stage II Drainage Amount None Wound Bed Greatest Portion [place]ky Red Surrounding Tissue [place] Posterior Left Hip Wound Assessment Shift Assessment Wound Type Pressure Ulcer Wound Stage Stage II Drainage Amount None General Appearance Open to air Surrounding Tissue [place] Left Calf Wound Assessment Shift Assessment Wound Type Pressure Ulcer Wound Stage Deep Tissue Injury Drainage Amount None General Appearance Well Approximated,Open to air Surrounding Tissue [place] Wound Photo Photo Taken No Eye Exam: PERRL, EOMI, eyes nml inspection Ears, Nose, Throat Exam: normal ENT inspection, pharynx normal, moist mucous membranes Neck Exam: normal inspection, non-tender, supple, full range of motion Respiratory Exam: normal breath sounds, lungs clear, No respiratory distress Cardiovascular Exam: regular rate/rhythm, normal heart sounds Gastrointestinal/Abdomen Exam: soft, No tenderness, No mass Extremity Exam: normal inspection, normal range of motion Back Exam: normal inspection, normal range of motion, No CVA tenderness, No vertebral tenderness Male Genitalia Exam: deferred Rectal Exam: deferred OBJECTIVE DATA Vital Signs: Vital Signs - 24 hr Temp Pulse Resp BP Pulse Ox 10/05/20 07:45 98.1 F 79 19 124/52 92 L 10/05/20 05:41 74 17 93 L 10/05/20 05:16 128/57 10/05/20 03:00 99.1 F 72 18 100 10/04/20 23:00 99.3 F 79 20 127/56 98 10/04/20 19:26 99.9 F 85 20 137/78 98 10/04/20 19:02 91 H 19 90 L 10/04/20 16:00 99.9 F 98 H 22 117/57 94 L 10/04/20 13:21 82 24 96 10/04/20 12:00 100.0 F 80 29 H 95/55 96 Oxygen-Last 24 hours Oxygen Flowrate (L/min)-RT 3 Pain Assessment - Last Documented Pain Intensity 0 Pain Scale Used 0-10 Pain Scale Intake and Output: Intake & Output 10/02/20 10/03/20 10/04/20 10/05/20 11:59 11:59 11:59 11:59 Intake Total 1377 305 5745 4268 Output Total 2200 1900 1500 950 Balance -506 -8815 126 6902 Weight 70.1 kg 68.6 kg 72 kg 72 kg Multi-Disciplinary Progress Notes: Multi-Disciplinary Progress Notes 10/04/20 15:42 Physical Therapy Note by Jolie Beltran PT. SEEN BY P.TPaulette BID THIS DATE. LINARES CATH, TELEMETRY, AND IV IN PLACE. IN A.M. - PT. PERFORMED SUPINE TO SIT W/ MOD ASSIST X 2 W/ HOB ELEVATED. ABLE TO MAINTAIN BALANCE ON SIDE OF BED W/ CGA. BP 97/55 WHEN MOVED TO SIT. NSG REPORTED BP HAS BEEN LOW THIS A.M. PT'S BOWELS HAD MOVED IN BED. PERFORMED SIT TO STAND W/ WALKER AND MOD ASSIST X 2. PT. ABLE TO STAND FOR ~ 30 SECS TO ATTEMPT HYGIENE AND THEN REPORTED FATIGUE AND THAT HE DIDN'T WANT TO TRANSFER TO CHAIR. ABLE TO PERFORM SIT TO STAND AGAIN W/ MOD ASSIST X 2 AND SIDE STEP TO HEAD OF BED W/ MOD ASSIST X 2 AND WALKER. ASSISTED NSG W/ PATIENT CARE AND PT. DID DEMO SLIGHT IMPROVEMENT W/ ROLLING W/ MIN-MOD ASSIST X 1. PM RX - PT. AGREEABLE TO PERFORM LE BED EX'S AND TRANSFER TO CHAIR. MORE ALERT; STILL NOTING EXTREMITY TREMORS GREATEST IN L UE. BP 131/76 IN BED. PT. PERFORMED LE GENTLE ROM AND STRENGTHENING X 10 REPS- HEEL SLIDES, ANKLE PUMPS, SUPINE HIP ABD, SLRS. PT. PERFORMED SUPINE TO SIT W/ MOD ASSIST X 1 W/ HOB ELEVATED; ABLE TO MAINTAIN SITTING BALANCE ON SIDE OF BED W/ CGA. SIT TO STAND - MOD ASSIST X 2 AND TOOK 2-3 STEPS TO TRANSFER W/ WALKER W/ MOD ASSIST X 2. PT. LEFT IN CHAIR W/ CALL LIGHT IN PLACE. WILL CONT. PT 5X/WK TOLERATED TO ADDRESS INCREASING STRENGTH, ENDURANCE AND OVERALL INDEPENDENCE W/ FUNCTIONAL MOBILITY. JOLIE BELTRAN, PT Initialized on 10/04/20 15:42 - END OF NOTE 10/04/20 14:18 Case Management Note by Kate Royal S/W PATIENT AND POA- THEY WOULD LIKE TO CONTINUE WITH SWINGBED TO TRY TO GET PATIENT STRONGER AND MORE MANAGABLE AT HOME. THIS WOULD ALSO ALLOW POA TIME TO ARRANGE HOME CARE FOR PATIENT. WILL ALSO TRY TO ARRANGE FOR HOSPITAL BED FROM [facility] Initialized on 10/04/20 14:18 - END OF NOTE 10/04/20 14:13 Nutrition Note by Tiffany Ott F/u Note: heart healthy diet con't with boost. po intake 25-75%, adm weight 69.1kg; current weight 72 kg. Labs 10/02= hgb 10.2, hct 32.3, mcv 102.2, K+ 3.4, BUN 43, Cr 2.57, glu wnl. goal of po intake >=50% met and ongoing; goal of no weight loss met and ongoing. Con't with current diet. Will monitor and f/u prn. T.AMINA Ott Initialized on 10/04/20 14:13 - END OF NOTE Assessment/Plan (1) Pneumonia Current Visit: Yes Status: Acute Qualifiers: Laterality: left Lung location: lower lobe of lung Assessment & Plan: no fever today. doing better Code(s): J18.9 - PNEUMONIA, UNSPECIFIED ORGANISM (2) Atrial fibrillation Current Visit: Yes Status: Chronic Qualifiers: Atrial fibrillation type: paroxysmal Qualified Code(s): I48.0 - Paroxysmal atrial fibrillation Code(s): I48.91 - UNSPECIFIED ATRIAL FIBRILLATION (3) CAD (coronary artery disease) Current Visit: No Status: Chronic Qualifiers: Coronary Disease-Associated Artery/Lesion type: [place] artery [place] vs. transplanted heart: [place] heart Associated angina: without angina Qualified Code(s): I25.10 - Atherosclerotic heart disease of [place] coronary artery without angina pectoris Code(s): I25.10 - ATHSCL HEART DISEASE OF [place] CORONARY ARTERY W/O ANG PCTRS (4) COPD (chronic obstructive pulmonary disease) Current Visit: No Status: Chronic Qualifiers: COPD type: chronic bronchitis Chronic bronchitis type: simple Qualified Code(s): J41.0 - Simple chronic bronchitis (5) Chronic renal disease, stage 4, severely decreased glomerular filtration rate (GFR) between 15-29 mL/min/1.73 square meter Current Visit: Yes Status: Chronic Code(s): N18.4 - CHRONIC KIDNEY DISEASE, STAGE 4 (SEVERE)
[2020-10-05] MEDS: MAG-OX 400 PO SCH (09:21)
[2020-10-05] MEDS: BUMEX 1 MG PO SCH (09:21)
[2020-10-05] MEDS: Lopressor 50 MG PO SCH (09:21)
[2020-10-05] MEDS: ELIQUIS 2.5 MG TABLET PO SCH (09:21)
[2020-10-05] MEDS: Pepcid 20 MG PO SCH (09:21)
[2020-10-05] MEDS: FOLATE 1 MG PO SCH (09:21)
[2020-10-05] MEDS: Klor Con 10 MEQ PO SCH (09:21)
[2020-10-05] MEDS: Neurontin 100 MG PO SCH (09:21)
[2020-10-05] MEDS: Protonix 40MG Tablet PO SCH (09:21)
[2020-10-05] MEDS: Zaroxolyn 2.5 MG PO SCH (09:23)
[2020-10-05] MEDS ORDERED: Duragesic 50MCG Patch TD SCH (10:00)
== END 2020-10-05 11:30 | disposition swing bed (61) | DRG 194 ==
LOC: ED 11:03 → INTOOBSV 17:00 → ICU 17:00 → OBSVTOIN 09-29 11:15
PROVIDERS: ADMIT General Practice; ATTEND General Practice
DX: J18.9 Pneumonia, unspecified organism (principal); C34.92 Malignant neoplasm of unspecified part of left bronchus or lung; C79.51 Secondary malignant neoplasm of bone; N18.4 Chronic kidney disease, stage 4 (severe); J44.9 Chronic obstructive pulmonary disease, unspecified; E78.00 Pure hypercholesterolemia, unspecified; I25.10 Atherosclerotic heart disease of native coronary artery without angina pectoris; D50.0 Iron deficiency anemia secondary to blood loss (chronic); I48.91 Unspecified atrial fibrillation; I13.10 Hypertensive heart and chronic kidney disease without heart failure, with stage 1 through stage 4 chronic kidney disease, or unspecified chronic kidney disease; L89.322 Pressure ulcer of left buttock, stage 2; L89.312 Pressure ulcer of right buttock, stage 2; L89.896 Pressure-induced deep tissue damage of other site; L89.226 Pressure-induced deep tissue damage of left hip; L89.626 Pressure-induced deep tissue damage of left heel; Z79.899 Other long term (current) drug therapy; Z86.73 Personal history of transient ischemic attack (TIA), and cerebral infarction without residual deficits
CPT/HCPCS: 36000; 36415; 36430; 36600; 71045; 80048; 80053; 81001; 82375; 82803; 83605; 83880; 84484; 85014; 85018; 85025; 85027; 85610; 85730; 86850; 86870; 86900; 86901; 86922; 87040; 87077; 87086; 93005; 94640; 94762; 96360; 96365; 99285; 99291; G0378; J0456; J7609; P9016; U0003; A9270-GY

== ENCOUNTER 2020-10-05 10:35 | Inpatient (IN) | payer MEDICARE ==
[2020-10-05] MEDS ORDERED: Aplisol ID ONE (12:43)
[2020-10-05] MEDS: PROVENTIL 2.5 MG/3 ML NEB IH SCH ×2 (13:41→18:59)
[2020-10-05] MEDS ORDERED: Zosyn 3.375 GM Vial 3.375 GM in Sodium Chloride 100ML MINI-BAG PLUS 100 ML IV SCH (14:00)
[2020-10-05] MEDS: Sodium Chloride 0.9% 10 ML FLUSH Syringe IV SCH ×2 (14:20→22:34)
[2020-10-05] MEDS: TYLENOL 325 MG PO PRN (14:30)
[2020-10-05] MEDS: BUMEX 1 MG PO SCH (16:06)
[2020-10-05] MEDS: MOTRIN 200 MG PO PRN (16:06)
[2020-10-05] MEDS ORDERED: PHARMACY DOSING REQUIRED: VANCOMYCIN IV STA (16:27)
[2020-10-05] MEDS: Diflucan 100 MG PO SCH ×2 (17:04→22:32)
[2020-10-05 17:55] LABS: Adenovirus F 40/41 NEGATIVE (NEGATIVE); Astrovirus NEGATIVE (NEGATIVE); C. Difficile Organism NEGATIVE (NEGATIVE); Campylobacter NEGATIVE (NEGATIVE); Cryptosporidium NEGATIVE (NEGATIVE); Cyclospora cayentanensis NEGATIVE (NEGATIVE); Entamoeaba histolytica NEGATIVE (NEGATIVE); Enteroaggregative E.coli NEGATIVE (NEGATIVE); Enteropathogenic E.coli NEGATIVE (NEGATIVE); Enterotoxigenic E.coli NEGATIVE (NEGATIVE); Giardia lamblia NEGATIVE (NEGATIVE); Norovirus GI/GII NEGATIVE (NEGATIVE); Plesiomonas shigelloides NEGATIVE (NEGATIVE); Rotavirus A NEGATIVE (NEGATIVE); Salmonella NEGATIVE (NEGATIVE); Sapovirus NEGATIVE (NEGATIVE); Shiga-like toxin prod.E.coli NEGATIVE (NEGATIVE); Vibrio NEGATIVE (NEGATIVE); Vibrio cholerae NEGATIVE (NEGATIVE); Yersinia enterocolitica NEGATIVE (NEGATIVE)
[2020-10-05] MEDS ORDERED: Zithromax 500 MG/ 250 ML NaCl Premix 500 MG/250 ML IVPB IV SCH (18:00)
[2020-10-05] MEDS ORDERED: VANCOMYCIN 1 GRAM/200 ML BAG 1 GM/200 ML PIGGYBACK IV SCH (18:00)
[2020-10-05] MEDS ORDERED: Lomotil PO PRN (18:16)
[2020-10-05] MEDS: MAG-OX 400 PO SCH (22:32)
[2020-10-05] MEDS: ELIQUIS 2.5 MG TABLET PO SCH (22:32)
[2020-10-05] MEDS: Lopressor 50 MG PO SCH (22:32)
[2020-10-05] MEDS: Klor Con 10 MEQ PO SCH (22:32)
[2020-10-05] MEDS: Pepcid 20 MG PO SCH (22:33)
[2020-10-05] MEDS: Neurontin 400 MG PO SCH (22:33)
[2020-10-05] MEDS: Zocor 10MG PO SCH (22:34)
[2020-10-06] MEDS: Sodium Chloride 0.9% 10 ML FLUSH Syringe IV SCH ×3 (06:24→21:27)
[2020-10-06] MEDS: PROVENTIL 2.5 MG/3 ML NEB IH SCH ×3 (06:52→18:52)
[2020-10-06 09:08] LABS: ANION GAP 8.7 MEQ/L (5-15); Calcium 8.9 mg/dL (8.4-10.2); Creatinine 1 2.79 mg/dL (0.66-1.25); EST GLOMERULAR FILTRATION RATE 23.5 ML/MIN; Potassium 3.5 mmol/L (3.5-5.1)
[2020-10-06] MEDS ORDERED: Aplisol ID SCH (10:00)
[2020-10-06] MEDS: MAG-OX 400 PO SCH ×2 (10:07→21:25)
[2020-10-06] MEDS: Diflucan 100 MG PO SCH ×2 (10:07→21:22)
[2020-10-06] MEDS: BUMEX 1 MG PO SCH ×2 (10:07→16:40)
[2020-10-06] MEDS: Klor Con 10 MEQ PO SCH ×2 (10:07→21:22)
[2020-10-06] MEDS: Pepcid 20 MG PO SCH ×2 (10:07→21:23)
[2020-10-06] MEDS: Neurontin 100 MG PO SCH (10:07)
[2020-10-06] MEDS: ELIQUIS 2.5 MG TABLET PO SCH ×2 (10:08→21:26)
[2020-10-06] MEDS: FOLATE 1 MG PO SCH (10:08)
[2020-10-06] MEDS: Protonix 40MG Tablet PO SCH (10:08)
[2020-10-06] MEDS: Lopressor 50 MG PO SCH ×2 (10:08→21:25)
[2020-10-06] MEDS: VANCOCIN 1 GM VIAL*** 0.75 GM in Sodium Chloride 0.9% 150 ML 150 ML IV SCH (10:41)
[2020-10-06] MEDS: TYLENOL 325 MG PO PRN (10:45)
[2020-10-06] MEDS: VENELEX OINTMENT TP SCH ×2 (11:37→23:50)
[2020-10-06] MEDS ORDERED: PHARMACY DOSING REQUEST MC ONE (12:19)
[2020-10-06] MEDS: MOTRIN 200 MG PO PRN (13:27)
[2020-10-06] MEDS: MERREM 500MG 500 MG in Sodium Chloride 100ML MINI-BAG PLUS 100 ML IV SCH (16:40)
[2020-10-06] MEDS: Zocor 10MG PO SCH (21:26)
[2020-10-06] MEDS: Neurontin 400 MG PO SCH (21:26)
[2020-10-07] MEDS: MERREM 500MG 500 MG in Sodium Chloride 100ML MINI-BAG PLUS 100 ML IV SCH ×2 (03:15→15:00)
[2020-10-07] MEDS: Sodium Chloride 0.9% 10 ML FLUSH Syringe IV SCH ×3 (05:30→21:19)
[2020-10-07] MEDS: PROVENTIL 2.5 MG/3 ML NEB IH SCH ×3 (08:15→19:15)
[2020-10-07] MEDS ORDERED: TROUGH DRUG LEVELS IJ ONE (09:30)
[2020-10-07] MEDS: BUMEX 1 MG PO SCH ×2 (10:24→17:53)
[2020-10-07] MEDS: Neurontin 100 MG PO SCH (10:24)
[2020-10-07] MEDS: Pepcid 20 MG PO SCH ×2 (10:24→21:17)
[2020-10-07] MEDS: ELIQUIS 2.5 MG TABLET PO SCH ×2 (10:24→21:18)
[2020-10-07] MEDS: MOTRIN 200 MG PO PRN (10:24)
[2020-10-07] MEDS: MAG-OX 400 PO SCH ×2 (10:24→21:18)
[2020-10-07] MEDS: Protonix 40MG Tablet PO SCH (10:24)
[2020-10-07] MEDS: FOLATE 1 MG PO SCH (10:24)
[2020-10-07] MEDS: Klor Con 10 MEQ PO SCH ×2 (10:24→21:19)
[2020-10-07] MEDS: Lopressor 50 MG PO SCH ×2 (10:24→21:18)
[2020-10-07] MEDS: Diflucan 100 MG PO SCH ×2 (10:24→21:18)
[2020-10-07] MEDS: VENELEX OINTMENT TP SCH ×2 (10:25→21:18)
[2020-10-07] MEDS: Zaroxolyn 2.5 MG PO SCH (10:34)
[2020-10-07] MEDS: VANCOCIN 1 GM VIAL*** 0.75 GM in Sodium Chloride 0.9% 150 ML 150 ML IV SCH (10:58)
[2020-10-07] MEDS: Zocor 10MG PO SCH (21:18)
[2020-10-07] MEDS: Neurontin 400 MG PO SCH (21:18)
[2020-10-08] MEDS: TYLENOL 325 MG PO PRN ×2 (01:34→16:03)
[2020-10-08] MEDS: Sodium Chloride 0.9% 10 ML FLUSH Syringe IV SCH ×3 (03:03→21:30)
[2020-10-08] MEDS: MERREM 500MG 500 MG in Sodium Chloride 100ML MINI-BAG PLUS 100 ML IV SCH ×2 (03:03→16:20)
[2020-10-08] MEDS: PROVENTIL 2.5 MG/3 ML NEB IH SCH ×3 (07:22→19:02)
[2020-10-08] MEDS: BUMEX 1 MG PO SCH ×2 (09:26→16:19)
[2020-10-08] MEDS: Duragesic 50MCG Patch TD SCH (09:27)
[2020-10-08] MEDS: Diflucan 100 MG PO SCH ×2 (09:27→21:27)
[2020-10-08] MEDS: FOLATE 1 MG PO SCH (09:28)
[2020-10-08] MEDS: ELIQUIS 2.5 MG TABLET PO SCH ×2 (09:28→21:27)
[2020-10-08] MEDS: Neurontin 100 MG PO SCH (09:29)
[2020-10-08] MEDS: VANCOCIN 500 MG VIAL*** 500 MG in Sodium Chloride 100ML MINI-BAG PLUS 100 ML IV SCH (09:29)
[2020-10-08] MEDS: Pepcid 20 MG PO SCH ×2 (09:29→21:28)
[2020-10-08] MEDS: Lopressor 50 MG PO SCH ×2 (09:29→21:28)
[2020-10-08] MEDS: Protonix 40MG Tablet PO SCH (09:29)
[2020-10-08] MEDS: VENELEX OINTMENT TP SCH ×2 (09:29→21:31)
[2020-10-08] MEDS: MAG-OX 400 PO SCH ×2 (09:29→21:29)
[2020-10-08] MEDS: Klor Con 10 MEQ PO SCH ×2 (09:29→21:29)
[2020-10-08] MEDS: MOTRIN 200 MG PO PRN (13:11)
[2020-10-08] MEDS: Neurontin 400 MG PO SCH (21:28)
[2020-10-08] MEDS: Zocor 10MG PO SCH (21:30)
[2020-10-09] MEDS: MERREM 500MG 500 MG in Sodium Chloride 100ML MINI-BAG PLUS 100 ML IV SCH ×2 (03:40→15:01)
[2020-10-09] MEDS: PROVENTIL 2.5 MG/3 ML NEB IH SCH ×3 (05:14→15:20)
[2020-10-09] MEDS: Sodium Chloride 0.9% 10 ML FLUSH Syringe IV SCH ×3 (05:15→22:00)
[2020-10-09] MEDS: Pepcid 20 MG PO SCH (08:25)
[2020-10-09] MEDS: BUMEX 1 MG PO SCH ×2 (08:25→17:18)
[2020-10-09] MEDS: MAG-OX 400 PO SCH (08:25)
[2020-10-09] MEDS: Neurontin 100 MG PO SCH (08:26)
[2020-10-09] MEDS: Lopressor 50 MG PO SCH (08:26)
[2020-10-09] MEDS: Klor Con 10 MEQ PO SCH (08:26)
[2020-10-09] MEDS: ELIQUIS 2.5 MG TABLET PO SCH (08:26)
[2020-10-09] MEDS: Diflucan 100 MG PO SCH (08:26)
[2020-10-09] MEDS: Protonix 40MG Tablet PO SCH (08:26)
[2020-10-09] MEDS: FOLATE 1 MG PO SCH (08:26)
[2020-10-09] MEDS: VANCOCIN 500 MG VIAL*** 500 MG in Sodium Chloride 100ML MINI-BAG PLUS 100 ML IV SCH (08:30)
[2020-10-09] MEDS: Zaroxolyn 2.5 MG PO SCH (08:30)
[2020-10-09] MEDS: VENELEX OINTMENT TP SCH ×2 (10:48→22:00)
[2020-10-09] MEDS: TYLENOL 325 MG PO PRN (12:50)
[2020-10-10] MEDS: Diflucan 100 MG PO SCH ×2 (02:13→10:22)
[2020-10-10] MEDS: Klor Con 10 MEQ PO SCH ×3 (02:13→21:48)
[2020-10-10] MEDS: ELIQUIS 2.5 MG TABLET PO SCH ×3 (02:13→21:47)
[2020-10-10] MEDS: Pepcid 20 MG PO SCH ×3 (02:14→21:46)
[2020-10-10] MEDS: Neurontin 400 MG PO SCH ×2 (02:14→21:46)
[2020-10-10] MEDS: Lopressor 50 MG PO SCH ×3 (02:14→21:47)
[2020-10-10] MEDS: MAG-OX 400 PO SCH ×3 (02:14→21:46)
[2020-10-10] MEDS: Zocor 10MG PO SCH ×2 (02:15→21:47)
[2020-10-10] MEDS: MERREM 500MG 500 MG in Sodium Chloride 100ML MINI-BAG PLUS 100 ML IV SCH ×2 (05:08→15:08)
[2020-10-10 05:40] LABS: Creatinine 1 3.09 mg/dL (0.66-1.25); EST GLOMERULAR FILTRATION RATE 20.9 ML/MIN
[2020-10-10] MEDS: PROVENTIL 2.5 MG/3 ML NEB IH SCH ×3 (07:01→19:09)
[2020-10-10] MEDS: MOTRIN 200 MG PO PRN (08:00)
[2020-10-10] MEDS ORDERED: TROUGH DRUG LEVELS IJ ONE (09:30)
[2020-10-10] MEDS: BUMEX 1 MG PO SCH ×2 (10:21→17:52)
[2020-10-10] MEDS: Neurontin 100 MG PO SCH (10:21)
[2020-10-10] MEDS: FOLATE 1 MG PO SCH (10:21)
[2020-10-10] MEDS: Protonix 40MG Tablet PO SCH (10:21)
[2020-10-10] MEDS: VENELEX OINTMENT TP SCH ×2 (10:22→21:46)
[2020-10-10] MEDS: Sodium Chloride 0.9% 10 ML FLUSH Syringe IV SCH (21:49)
[2020-10-11] MEDS: MERREM 500MG 500 MG in Sodium Chloride 100ML MINI-BAG PLUS 100 ML IV SCH ×2 (03:30→14:47)
[2020-10-11] MEDS: PROVENTIL 2.5 MG/3 ML NEB IH SCH ×3 (06:48→19:11)
[2020-10-11] MEDS: Sodium Chloride 0.9% 10 ML FLUSH Syringe IV SCH ×4 (07:48→21:57)
[2020-10-11] MEDS: VANCOCIN 500 MG VIAL*** 500 MG in Sodium Chloride 100ML MINI-BAG PLUS 100 ML IV SCH ×2 (08:55→10:40)
[2020-10-11] MEDS: Duragesic 50MCG Patch TD SCH (09:17)
[2020-10-11] MEDS: Klor Con 10 MEQ PO SCH ×2 (09:18→21:56)
[2020-10-11] MEDS: Lopressor 50 MG PO SCH ×2 (09:18→21:55)
[2020-10-11] MEDS: MAG-OX 400 PO SCH ×2 (09:18→21:55)
[2020-10-11] MEDS: Pepcid 20 MG PO SCH ×2 (09:18→21:55)
[2020-10-11] MEDS: Diflucan 100 MG PO SCH (09:18)
[2020-10-11] MEDS: ELIQUIS 2.5 MG TABLET PO SCH ×2 (09:18→21:56)
[2020-10-11] MEDS: Neurontin 100 MG PO SCH (09:18)
[2020-10-11] MEDS: BUMEX 1 MG PO SCH ×2 (09:18→17:59)
[2020-10-11] MEDS: Protonix 40MG Tablet PO SCH (09:18)
[2020-10-11] MEDS: FOLATE 1 MG PO SCH (09:18)
[2020-10-11] MEDS: Zaroxolyn 2.5 MG PO SCH (09:18)
[2020-10-11] MEDS: VENELEX OINTMENT TP SCH ×2 (09:18→21:55)
--- NOTE | 2020-10-11 11:44 | PCM.NOTE ---
Date and Time: 10/11/20 1143 Subjective Assessment: doing ok, fever - Review of Systems Constitutional: No Fever, No Chills Eyes: No Symptoms Ears, Nose, & Throat: No Symptoms Respiratory: No Cough, No Short Of Breath Cardiac: No Chest Pain, No Edema, No Syncope Abdominal/Gastrointestinal: No Abdominal Pain, No Nausea, No Vomiting, No Diarrhea Genitourinary Symptoms: No Dysuria Musculoskeletal: No Back Pain, No Neck Pain Skin: No Rash Neurological: No Dizziness, No Focal Weakness, No Sensory Changes Psychological: No Symptoms Endocrine: No Symptoms Hematologic/Lymphatic: No Symptoms Immunological/Allergic: No Symptoms Objective Exam General Appearance: no apparent distress, alert Neurologic Exam: alert, oriented x 3, cooperative, normal mood/affect, nml cerebellar function, sensation nml, No motor deficits Skin Exam: normal color, warm, dry Wound Assessment: Skin/Wound Assessment Wound/Incision Assessment Start: 10/05/20 13:59 Text: Status: Active Freq: Q6H Protocol: Document 10/11/20 08:00 GILLIAN (Rec: 10/11/20 08:22 GILLIAN [id number]) Wound/Incision Assessment Left upper arm Wound Assessment Shift Assessment Wound Type shear/blister Wound Stage Non Pressure Wound Drainage Amount None General Appearance Open to air Surrounding Tissue [place] RIGHT GREAT TOE Wound Assessment Shift Assessment Wound Type Pressure Ulcer Wound Stage Deep Tissue Injury Drainage Amount None General Appearance Open to air Surrounding Tissue [place] LEFT CALF Wound Assessment Shift Assessment Wound Type Pressure Ulcer Wound Stage Deep Tissue Injury Drainage Amount None General Appearance Well Approximated,Open to air Surrounding Tissue [place] POSTERIOR LEFT HIP Wound Assessment Shift Assessment Wound Type Pressure Ulcer Wound Stage Stage II Drainage Amount None General Appearance Open to air Surrounding Tissue [place] BILATERAL BUTTOCK Wound Assessment Shift Assessment Wound Type Pressure Ulcer Wound Stage Stage II Drainage Amount None General Appearance Reddened Surrounding Tissue Sully Comment BARREIR CREAM BILATERAL HEEL Wound Assessment Shift Assessment Wound Type Pressure Ulcer Wound Stage Deep Tissue Injury Drainage Amount Minimal Drainage Description BLOODY General Appearance Open to air Surrounding Tissue Sully Comment CREAM APPLIED ORDERED Eye Exam: PERRL, EOMI, eyes nml inspection Ears, Nose, Throat Exam: normal ENT inspection, pharynx normal, moist mucous membranes Neck Exam: normal inspection, non-tender, supple, full range of motion Respiratory Exam: normal breath sounds, lungs clear, No respiratory distress Cardiovascular Exam: regular rate/rhythm, normal heart sounds Gastrointestinal/Abdomen Exam: soft, No tenderness, No mass Extremity Exam: normal inspection, normal range of motion Back Exam: normal inspection, normal range of motion, No CVA tenderness, No vertebral tenderness Male Genitalia Exam: deferred Rectal Exam: deferred OBJECTIVE DATA Vital Signs: Vital Signs - 24 hr Temp Pulse Resp BP BP Pulse Ox 10/11/20 07:55 98.1 F 86 20 123/54 92 L 10/11/20 06:51 86 20 92 L 10/11/20 00:13 98.8 F 73 18 131/64 93 L 10/10/20 19:40 98.4 F 75 18 115/61 94 L 10/10/20 19:09 78 18 94 L 10/10/20 14:00 99.3 F 88 16 137/57 Pain Assessment - Last Documented Pain Intensity 5 Pain Scale Used 0-10 Pain Scale Intake and Output: Intake & Output 10/08/20 10/09/20 10/10/20 10/11/20 11:59 11:59 11:59 11:59 Intake Total 307 200 560 660 Output Total 1250 1000 1950 875 Balance -943 -800 -1390 -215 Weight 72 kg 64.9 kg Multi-Disciplinary Progress Notes: Multi-Disciplinary Progress Notes 10/10/20 16:04 Pharmacy Note by Diaz Schneider Creatinine continues to increase. Level 3.09 today. Estimated creatinine clearance is 20ml/min. Will reduce Diflucan to once daily per renal dosing policy. Initialized on 10/10/20 16:04 - END OF NOTE 10/10/20 13:50 Case Management Note by Kate Royal S/W G[facility]- SHE IS GOING TO CALL [employer] AND ARRANGE A TIME FOR THEM TO COME AND CHECK HIS CONCENTRATOR TO BE SURE IT IS WORKING CORRECTLY. SHE ALSO STATED SHE IS HAVING TROUBLES GETTING 24 [employer] GIVERS LINES UP AT THIS TIME BUT IS WORKING ON IT. WILL PLAN TO DC WITH [employer] AND C AT TIME OF DC ONCE EVERYTHING IS ARRANGED BY GORDO Initialized on 10/10/20 13:50 - END OF NOTE 10/10/20 13:35 Pharmacy Note by Diaz Schneider Creatinine up to 3.09 today. Vancomycin trough 20.74. Will hold today's dose and restart at 500mg iv q48h. Merrem dose still ok at 500mg iv q12h. Initialized on 10/10/20 13:35 - END OF NOTE Assessment/Plan (1) CHF (congestive heart failure), NYHA class III Current Visit: No Status: Chronic Qualifiers: Congestive heart failure type: combined Congestive heart failure chronicity: acute on chronic Qualified Code(s): I50.43 - Acute on chronic combined systolic (congestive) and diastolic (congestive) heart failure Code(s): I50.9 - HEART FAILURE, UNSPECIFIED (2) COPD (chronic obstructive pulmonary disease) Current Visit: No Status: Chronic Qualifiers: COPD type: unspecified COPD Qualified Code(s): J44.9 - Chronic obstructive pulmonary disease, unspecified (3) Chronic renal disease, stage 4, severely decreased glomerular filtration rate (GFR) between 15-29 mL/min/1.73 square meter Current Visit: Yes Status: Chronic Code(s): N18.4 - CHRONIC KIDNEY DISEASE, STAGE 4 (SEVERE) (4) HTN (hypertension), benign Current Visit: No Status: Chronic Code(s): I10 - ESSENTIAL (PRIMARY) HYPERTENSION
[2020-10-11] MEDS ORDERED: Zofran 4 MG/2 ML VIAL IV PRN (16:14)
[2020-10-11] MEDS: Neurontin 400 MG PO SCH (21:55)
[2020-10-11] MEDS: Zocor 10MG PO SCH (21:55)
[2020-10-12] MEDS: TYLENOL 325 MG PO PRN ×2 (02:19→21:20)
[2020-10-12] MEDS: Sodium Chloride 0.9% 10 ML FLUSH Syringe IV SCH ×2 (04:28→16:42)
[2020-10-12] MEDS: MERREM 500MG 500 MG in Sodium Chloride 100ML MINI-BAG PLUS 100 ML IV SCH ×2 (04:28→16:33)
[2020-10-12] MEDS: PROVENTIL 2.5 MG/3 ML NEB IH SCH ×3 (07:04→18:51)
[2020-10-12] MEDS: Pepcid 20 MG PO SCH ×2 (09:05→21:21)
[2020-10-12] MEDS: Klor Con 10 MEQ PO SCH ×2 (09:05→21:20)
[2020-10-12] MEDS: FOLATE 1 MG PO SCH (09:05)
[2020-10-12] MEDS: Lopressor 50 MG PO SCH ×2 (09:05→21:21)
[2020-10-12] MEDS: Neurontin 100 MG PO SCH (09:05)
[2020-10-12] MEDS: Protonix 40MG Tablet PO SCH (09:05)
[2020-10-12] MEDS: MAG-OX 400 PO SCH ×2 (09:05→21:21)
[2020-10-12] MEDS: Diflucan 100 MG PO SCH (09:06)
[2020-10-12] MEDS: BUMEX 1 MG PO SCH ×2 (09:06→16:33)
[2020-10-12] MEDS: ELIQUIS 2.5 MG TABLET PO SCH ×2 (09:06→21:20)
[2020-10-12] MEDS: VENELEX OINTMENT TP SCH ×2 (09:08→21:21)
[2020-10-12] MEDS: Zocor 10MG PO SCH (21:21)
[2020-10-12] MEDS: Neurontin 400 MG PO SCH (21:21)
[2020-10-13] MEDS: Sodium Chloride 0.9% 10 ML FLUSH Syringe IV SCH ×4 (03:28→22:15)
[2020-10-13] MEDS: MERREM 500MG 500 MG in Sodium Chloride 100ML MINI-BAG PLUS 100 ML IV SCH ×2 (03:28→14:12)
[2020-10-13] MEDS: PROVENTIL 2.5 MG/3 ML NEB IH SCH ×3 (07:38→19:46)
[2020-10-13] MEDS ORDERED: TROUGH DRUG LEVELS IJ ONE (09:30)
[2020-10-13] MEDS: BUMEX 1 MG PO SCH ×2 (10:03→15:50)
[2020-10-13] MEDS: Diflucan 100 MG PO SCH (10:03)
[2020-10-13] MEDS: ELIQUIS 2.5 MG TABLET PO SCH ×2 (10:03→22:13)
[2020-10-13] MEDS: FOLATE 1 MG PO SCH (10:03)
[2020-10-13] MEDS: Klor Con 10 MEQ PO SCH ×2 (10:04→22:14)
[2020-10-13] MEDS: Lopressor 50 MG PO SCH ×2 (10:04→22:13)
[2020-10-13] MEDS: VENELEX OINTMENT TP SCH ×2 (10:05→22:14)
[2020-10-13] MEDS: Protonix 40MG Tablet PO SCH (10:05)
[2020-10-13] MEDS: MAG-OX 400 PO SCH ×2 (10:05→22:13)
[2020-10-13] MEDS: Neurontin 100 MG PO SCH (10:05)
[2020-10-13] MEDS: Pepcid 20 MG PO SCH ×2 (10:05→22:13)
[2020-10-13] MEDS: Zaroxolyn 2.5 MG PO SCH (10:08)
[2020-10-13] MEDS: VANCOCIN 500 MG VIAL*** 500 MG in Sodium Chloride 100ML MINI-BAG PLUS 100 ML IV SCH (10:30)
[2020-10-13] MEDS: TYLENOL 325 MG PO PRN ×2 (16:04→22:13)
[2020-10-13] MEDS: Neurontin 400 MG PO SCH (22:13)
[2020-10-13] MEDS: Zocor 10MG PO SCH (22:14)
[2020-10-14] MEDS: MERREM 500MG 500 MG in Sodium Chloride 100ML MINI-BAG PLUS 100 ML IV SCH ×2 (03:40→14:49)
[2020-10-14] MEDS: PROVENTIL 2.5 MG/3 ML NEB IH SCH ×3 (07:17→19:34)
[2020-10-14] MEDS: BUMEX 1 MG PO SCH ×2 (09:29→16:33)
[2020-10-14] MEDS: Sodium Chloride 0.9% 10 ML FLUSH Syringe IV SCH ×3 (09:29→22:09)
[2020-10-14] MEDS: Duragesic 50MCG Patch TD SCH (09:30)
[2020-10-14] MEDS: Diflucan 100 MG PO SCH (09:30)
[2020-10-14] MEDS: FOLATE 1 MG PO SCH (09:31)
[2020-10-14] MEDS: ELIQUIS 2.5 MG TABLET PO SCH ×2 (09:31→22:08)
[2020-10-14] MEDS: Neurontin 100 MG PO SCH (09:32)
[2020-10-14] MEDS: Klor Con 10 MEQ PO SCH ×2 (09:32→22:12)
[2020-10-14] MEDS: Pepcid 20 MG PO SCH ×2 (09:32→22:08)
[2020-10-14] MEDS: Protonix 40MG Tablet PO SCH (09:32)
[2020-10-14] MEDS: Lopressor 50 MG PO SCH ×2 (09:32→22:08)
[2020-10-14] MEDS: MAG-OX 400 PO SCH ×2 (09:32→22:12)
[2020-10-14] MEDS: VENELEX OINTMENT TP SCH ×2 (09:33→20:22)
[2020-10-14] MEDS: TYLENOL 325 MG PO PRN (20:12)
[2020-10-14] MEDS ORDERED: NYSTOP POWDER 15 GM TP SCH (22:00)
[2020-10-14] MEDS: Zocor 10MG PO SCH (22:08)
[2020-10-14] MEDS: Neurontin 400 MG PO SCH (22:12)
[2020-10-14] MEDS: NYSTOP 30 GM CREAM TOP SCH (22:15)
[2020-10-15] MEDS: MERREM 500MG 500 MG in Sodium Chloride 100ML MINI-BAG PLUS 100 ML IV SCH ×2 (02:49→14:09)
[2020-10-15] MEDS: Sodium Chloride 0.9% 10 ML FLUSH Syringe IV SCH ×2 (06:32→14:09)
[2020-10-15] MEDS: PROVENTIL 2.5 MG/3 ML NEB IH SCH ×2 (08:00→12:28)
[2020-10-15] MEDS: Lopressor 50 MG PO SCH (09:52)
[2020-10-15] MEDS: ELIQUIS 2.5 MG TABLET PO SCH (09:52)
[2020-10-15] MEDS: BUMEX 1 MG PO SCH ×2 (09:53→16:24)
[2020-10-15] MEDS: Pepcid 20 MG PO SCH (09:53)
[2020-10-15] MEDS: Klor Con 10 MEQ PO SCH (09:54)
[2020-10-15] MEDS: Diflucan 100 MG PO SCH (09:55)
[2020-10-15] MEDS: Neurontin 100 MG PO SCH (09:55)
[2020-10-15] MEDS: FOLATE 1 MG PO SCH (09:55)
[2020-10-15] MEDS: MAG-OX 400 PO SCH (09:55)
[2020-10-15] MEDS: Protonix 40MG Tablet PO SCH (09:56)
[2020-10-15] MEDS: NYSTOP 30 GM CREAM TOP SCH (10:00)
[2020-10-15] MEDS: VANCOCIN 500 MG VIAL*** 500 MG in Sodium Chloride 100ML MINI-BAG PLUS 100 ML IV SCH (10:01)
[2020-10-15] MEDS: VENELEX OINTMENT TP SCH (10:01)
[2020-10-15] MEDS: Zaroxolyn 2.5 MG PO SCH (10:05)
[2020-10-15 15:17] VITALS: BP 131/72; PULSE 69; O2SAT 98
[2020-10-17] MEDS ORDERED: Aplisol ID SCH (10:00)
== END 2020-10-15 17:47 | disposition hospice, home (50) | DRG 194 ==
LOC: ICU 11:31 → MED SURG 10-06 15:00
PROVIDERS: ADMIT General Practice; ATTEND General Practice
DX: J18.9 Pneumonia, unspecified organism (principal); I13.0 Hypertensive heart and chronic kidney disease with heart failure and stage 1 through stage 4 chronic kidney disease, or unspecified chronic kidney disease; N18.4 Chronic kidney disease, stage 4 (severe); C79.51 Secondary malignant neoplasm of bone; I50.9 Heart failure, unspecified; I48.91 Unspecified atrial fibrillation; I25.10 Atherosclerotic heart disease of native coronary artery without angina pectoris; J44.9 Chronic obstructive pulmonary disease, unspecified; L89.899 Pressure ulcer of other site, unspecified stage; L89.222 Pressure ulcer of left hip, stage 2; L89.322 Pressure ulcer of left buttock, stage 2; L89.312 Pressure ulcer of right buttock, stage 2; Z79.899 Other long term (current) drug therapy; Z79.01 Long term (current) use of anticoagulants; E78.00 Pure hypercholesterolemia, unspecified; Z85.118 Personal history of other malignant neoplasm of bronchus and lung
CPT/HCPCS: 0097U; 36415; 80048; 80202; 82565; 87040; 94640; 94760; J2405; J3370; J7609; A9270-GY